=== PATIENT | female | born 1950 | race Caucasian/White ===

== ENCOUNTER 2018-06-16 13:14 | Emergency (ER) | payer MEDICARE, BC, SELFPAY ==
[2018-06-16 13:15] VITALS: BP 154/79; PULSE 81; RESP 16; TEMP 37.6; O2SAT 98; BMI 24.7
[2018-06-16] MEDS: Diphth,Pertuss(Acell),Tet Vac 0.5 ML Vial IM (14:41)
[2018-06-16 14:43] LABS: Absolute Lymphocyte Count 0.62 X10^3/ul (0.83-4.51); Basophil# 0.01 X10^3/uL; Basophil% 0.1 % (0-1); Eosinophil# 0.05 X10^3/uL; Eosinophils% 0.5 % (0-5); Hematocrit 43.5 % (37-47); Hemoglobin 14.1 g/dl (12.0-15.0); Lymphocyte # 0.62 X10^3/ul (4.0); Lymphocyte % 5.8 % (19-41); Mean Corp Hgb Conc 32.4 g/gl (32-36); Mean Corpuscular Hgb 28.7 pg (27.0-32.0); Mean Corpuscular Volume 88.4 fL (81-99); Mean Platelet Vol. 9.8 fl (6.2-12.0); Monocyte# 0.98 X10^3/uL; Monocyte% 9.2 % (0-10); Neutrophil # 8.99 X10^3/uL (2.7-7.7); Neutrophil % 84.3 % (47-70); POSITIVE COUNT NO; POSITIVE DIFFERENTIAL NO; POSITIVE MORPHOLOGY NO; Platelet Count 189 K/mm3 (150-450); RBC Distribution Width CV 13.8 % (11.6-14.6); RBC Distribution Width SD 44.7 fl (35.1-43.9); Red Blood Count 4.92 M/mm3 (4.2-5.4); White Blood Count 10.7 K/mm3 (4.4-11.0)
[2018-06-16] MEDS: Vancomycin IV 1,000 MG/200 ML BAG 200 MG IV (14:52)
[2018-06-16 14:56] LABS: Anion Gap 9 (5-15); BUN 15 mg/dL (7-18); BUN/Creat Ratio 19.9 RATIO (10-20); Calcium,Total 8.9 mg/dL (8.5-10.1); Chloride 106 mmol/L (98-107); Creatinine, Serum 0.75 mg/dL (0.55-1.02); EST Glomerular Filtration Rate 81 mL/min (>60); Est Glom Filt Rate - Afr Amer 98 mL/min (>60); Glucose 95 mg/dL (74-106); Sodium Level 141 mmol/L (136-145)
--- NOTE | 2018-06-16 16:01 | ED.VIS.GEN ---
History of Present Illness Chief Complaint: Lower Extremity Injury Informant: Patient Onset: Days - 2-3 Timing: Continuous Quality: ache, swollen Location: right foot Current Severity: Moderate Maximum Severity: Moderate Worsened by: walking, palpation Relieved by: rest Narrative: Patient states she had open toed shoes on 3 days ago, she was clipping branches from pine trees in her yard so she could mow the grass underneath of them, and she accidentally hit 1 of them with her foot causing a scrape on the dorsal aspect. The next day she noticed that it was red and started to swell. It is much worse today and she was brought to the hospital by family member for evaluation. She denies any fevers or systemic symptoms, just pain and swelling and redness around this area. Last tetanus shot was unknown she thinks it was more than 10 years ago. Past Medical History - Allergies and Home Meds Allergies/Adverse Reactions: Allergies morphine Adverse Reaction (Verified 06/16/18 13:16) Vomiting pregabalin [From Lyrica] Adverse Reaction (Verified 06/16/18 13:16) Vomiting Primary Care Physician: Richard Corley III, MD [Primary Care Provider] - Smoking Status: Never smoker Review of Systems All systems negative except as indicated Musculoskeletal: Reports: Swelling - R foot, Extremity Pain - R foot Skin: Reports: Abscess, Wounds Physical Exam Vital Signs/Narrative: Vital Signs Temp Pulse Resp BP Pulse Ox 06/16/18 13:15 99.6 F H 81 16 154/79 H 98 Inital Vital Signs reviewed: Yes General: Well nourished, Well developed, - - Well-appearing, nad Head: Normocephalic, Atraumatic Eyes: Perrl, EOMI ENT: Moist mucous membranes, No rhinorrhea Neck: Supple, Nontender Extremities: Tenderness - dorsum of R foot; entire dorsum of right foot is erythematous and warm and tender, progressing to the peroneal aspect and not involving any of the sole. Does not involve the ankle or anywhere proximally. This is all surrounding a central wound with ecchymosis around it, pointing, fluctuant, very tender. Skin: - - Right foot cellulitis around a central swollen area that is consistent with an abscess. No spontaneous discharge. Difficult to tell if it is full of pus or clear fluid. There is ecchymotic/purpuric skin just around at the base of this area, but nowhere else. She has symmetric callus formation on the dorsum of both feet just proximal and medial to this abscess-appearing area. It is not tender. No lymphangitis. Neurological: Alert, Oriented x3, Cranial nerves II-XII grossly intact, Normal Strength, Normal Sensation Psychological: Normal affect Diagnostic/Tx/Re-eval Impressions Foot X-Ray 06/16/18 14:41 IMPRESSION: Dorsal soft tissue swelling. No bony abnormality is seen. Electronically Signed: Cesar Lezama MD at 15:00 EDT Tel [phone], Service support , 06/16/18 14:41 Foot min 3 Views [RAD] Stat Laboratory Results 06/16/18 06/16/18 Range/Units 14:36 14:36 WBC 10.7 (4.4-11.0) K/mm3 RBC 4.92 (4.2-5.4) M/mm3 Hgb 14.1 (12.0-15.0) g/dl Hct 43.5 (37-47) % MCV 88.4 (81-99) fL MCH 28.7 (27.0-32.0) pg MCHC 32.4 (32-36) g/gl RDW 13.8 (11.6-14.6) % RDW Differential 44.7 H (35.1-43.9) fl Plt Count 189 (150-450) K/mm3 MPV 9.8 (6.2-12.0) fl Immature Gran % (Auto) 0.100 (0.0-0.9) % Neut % (Auto) 84.3 H (47-70) % Lymph % (Auto) 5.8 L (19-41) % [place] % (Auto) 9.2 (0-10) % Eos % (Auto) 0.5 (0-5) % Baso % (Auto) 0.1 (0-1) % Absolute Neuts (auto) 9.0 H (2.0-7.7) X10^3/uL Absolute Lymphs (auto) 0.62 L (0.83-4.51) X10^3/ul Total Counted Not Reportable Sodium 141 (136-145) mmol/L Potassium 4.0 (3.5-5.1) mmol/L Chloride 106 (98-107) mmol/L Carbon Dioxide 26.0 (21.0-32.0) mmol/L Anion Gap 9 (5-15) BUN 15 (7-18) mg/dL Creatinine 0.75 (0.55-1.02) mg/dL Estim Creat Clear Calc 43.30 ml/min Est GFR (MDRD) Af Amer 98 (>60) mL/min Est GFR (MDRD) Non-Af 81 (>60) mL/min BUN/Creatinine Ratio 19.9 (10-20) RATIO Glucose 95 (74-106) mg/dL Calcium 8.9 (8.5-10.1) mg/dL - Medical Decision Making With the available labs and exam, and reevaluation after the initial one, which shows that the erythema is at the same level/area, there is no evidence of a necrotizing infection here. She has a low-grade systemic temperature, but other than a mild leukocytosis, her labs are unremarkable. She was given a dose of IV vancomycin here, and her tetanus was updated. I think given the etiology, the best medication to put her on would be gentamicin. She was advised that this has a higher tendency to cause antibiotic associated diarrhea and I advised her to eat yogurt every day while she is on the antibiotic. She is comfortable with that plan, I offered admission but she can walk okay and lives with her granddaughter, they are both comfortable with discharge home and wound care, watching for signs of worsening, with which they will return to the ER. Procedures Procedure(s): simple I&D abscess right foot -- prep w/ isopropanol and chlorhexidine, locally anesthetized w/ 4cc plain 1% lidocaine. Incised pointing fluctuant area with a #11 blade, there was bloody purulent discharge but the cavity is only the size of the blister that was grossly visible, nothing subcutaneous. It was cleansed out and dressed with bacitracin. ED Disposition - Plan for ED Patient: Disposition: Home or Assisted Living Chief Complaint: Lower Extremity Injury Diagnosis: Wound infection, posttraumatic, Cutaneous abscess of right foot Instructions: ED Abscess IandD, ED Infec Skin Cellulitis Prescriptions: Clindamycin [Cleocin] 300 mg PO 4X/DAY #80 cap Referrals: Richard Corley III, MD [Primary Care Provider] - 3-5 Days if not improving
[2018-06-16 17:16] VITALS: BP 133/75; BP 134/75; PULSE 74; RESP 18; O2SAT 98
== END 2018-06-16 17:18 | disposition home or self-care (01) ==
PROVIDERS: Emergency Provider Emergency Medicine; Family Provider Family Medicine; PCP Family Medicine
DX: L02.611 Cutaneous abscess of right foot (principal); Z23 Encounter for immunization
CPT/HCPCS: 10060; 73630; 80048; 85025; 90715; 99283; J7050

== ENCOUNTER 2018-10-07 13:26 | Emergency (ER) | payer MEDICARE, BC, SELFPAY ==
[2018-10-07 13:27] VITALS: BP 154/115; PULSE 82; RESP 16; TEMP 36.9; O2SAT 98; BMI 26.1
[2018-10-07 13:36] VITALS: PULSE 83; RESP 16; O2SAT 99
--- NOTE | 2018-10-07 13:58 | EKG12_ITS ---
Test Reason : REPEAT ECG Blood Pressure : / mmHG Vent. Rate : 072 BPM Atrial Rate : 072 BPM P-R Int : 166 ms QRS Dur : 128 ms QT Int : 434 ms P-R-T Axes : 055 004 039 degrees QTc Int : 475 ms Normal sinus rhythm Right bundle branch block Abnormal ECG Confirmed by MARIYA MENSAH ([id number]), video effects editor RODGER UGARTE ([id number]) on 10/10/2018 1:04:57 PM Referred By: YOHANA Confirmed By:MARIYA MENSAH
--- NOTE | 2018-10-07 13:58 | RAD_ITS ---
STUDY: X-RAY CHEST REASON FOR EXAM: Female, 68 years old. Left-sided chest pain. TECHNIQUE: Single AP portable view of the chest. COMPARISON: Comparison is made with prior study dated December 03, 2012. FINDINGS: EKG electrodes are seen. Hyperinflation. The lungs are clear. There is no demonstrated pleural abnormality. Normal size heart. Normal mediastinum and marv. Normal visualized pulmonary arteries. There is atherosclerotic calcification of the aortic arch with tortuosity. There are diffuse degenerative changes of the visualized thoracic spine. Levoscoliosis. Normal visualized ribs, clavicles, and shoulders. There is no demonstrated abnormality of the visualized soft tissue structures of the upper abdomen. RAD/Chest 1 View (Portable) IMPRESSION: Hyperinflation. The lungs are clear. Electronically Signed: Cesar Lezama MD at 14:45 EST Tel [phone], Service support ,
--- NOTE | 2018-10-07 14:00 | ED.VISSUMM ---
- ER Visit Summary Date of Service: 10/07/18 Chief Complaint: Left chest pain History of Present Illness: The patient is a 68 F past medical history of hypertension only. Patient has no cardiac history. She has no history of DVT or PE. She denies any recent travel, surgery, hemoptysis or leg pain or swelling. No recent immobilization. She states around 11 AM today she had sudden onset left-sided chest pain. No radiation to her jaw, neck or arm. Not associated with exertion. She has had no recent exertional chest pain or exertional dyspnea. She is never had anything like this before. She denies any trauma. Has not seen any rash. Physical Examination: Well-appearing older female. Vital signs are stable. Initial blood pressure 154/115. Pulse ox 99% on 2 L no hypoxia. No distress. HEENT exam unremarkable. Neck nontender no lymphadenopathy. No JVD. Lungs clear to auscultation bilaterally. Heart regular rhythm no murmur rate about 80. Chest wall nontender. No ecchymosis or bruising. No rash. No shingles. No crepitance or subcu air. No signs of trauma. Abdomen soft nontender. Normal bowel sounds no peritoneal signs. Pelvic girdle intact. Patient is moving all 4 extremities. Neurovascularly intact. Equal symmetrical radial pulses. 5-5 adoption social worker strength. Dorsi plantar flexion intact. Calves nontender without edema or cords. Neurologically she is awake and alert with no focal motor or sensory deficits. Test Results: Cardiac workup. She has no acute abnormality. Chest x-ray normal cardiac silhouette mediastinum read both by myself and radiologist. CBC normal. White count of 4. Hemoglobin 15. Chemistries normal. Normal creatinine and gap. Initial troponin normal. Repeat troponin normal. EKG sinus rhythm rate 84 with a right bundle branch block. No old EKG available for comparison. A repeat EKG was done which also shows a sinus rhythm with a rate of block. No signs of ischemia. No signs of [place]. Multiple repeat exams the patient is doing well I just evaluated her at 1627. We are awaiting the CTA chest results. If that is negative I am comfortable with her being discharged home. Emergency Department Course and Treatment: Aspirin po Treatment Plan: Patient is doing well on repeat exam at 1638. I am awaiting the CT of her chest results. There is a be checked out to the afternoon physician and disposition made. As well as a CTA is negative I am comfortable with her being discharged home. Disposition: [] Impression: Acute left-sided chest pain This note was generated with [employer] dictation software. It may contain incorrect words, spelling, and punctuation that were not noted in review of the chart prior to signing ED Disposition - Plan for ED Patient: Chief Complaint: Chest Other Referrals: Richard Corley III, MD [Primary Care Provider] -
--- NOTE | 2018-10-07 14:03 | ED.DCSUM_ITS ---
- ER Visit Summary Date of Service: 10/07/18 Chief Complaint: Left chest pain History of Present Illness: The patient is a 68 F past medical history of hypertension only. Patient has no cardiac history. She has no history of DVT or PE. She denies any recent travel, surgery, hemoptysis or leg pain or swel ling. No recent immobilization. She states around 11 AM today she had sudden onset left-sided chest pain. No radiation to her jaw, neck or arm. Not associated with exertion. She has had no recent exertional chest pain or exertional dyspnea. She is never had anything like this before. She denies any trauma. Has not seen any rash. Physical Examination: Well-appearing older female. Vital signs are stable. Initial blood pressure 154/115. Pulse ox 99% on 2 L no hypoxia. No distress. HEENT exam unremarkable. Neck nontender no lymphadenopathy. No JVD. Lungs clear to auscultation bilaterally. Heart regular rhythm no murmur rate about 80. Chest wall nontender. No ecchymosis or bruising. No rash. No shingles. No crepitance or subcu air. No signs of trauma. Abdomen soft nontender. Normal bowel sounds no peritoneal signs. Pelvic girdle intact. Patient is moving all 4 extremities. Neurovascularly intact. Equal symmetrical radial pulses. 5-5 housekeeping supervisor hotel strength. Dorsi plantar flexion intact. Calves nontender without edema or cords. Neurologically she is awake and alert with no focal motor or sensory deficits. Test Results: Cardiac workup. She has no acute abnormality. Chest x-ray normal cardiac silhouette mediastinum read both by myself and radiologist. CBC normal. White count of 4. Hemoglobin 15. Chemistries normal. Normal creatinine and gap. Initial troponin normal. Repeat troponin normal. EKG sinus rhythm rate 84 with a right bundle branch block. No old EKG available for comparison. A repeat EKG was done which also shows a sinus rhythm with a rate of block. No signs of ischemia. No signs of [place]. Multiple repeat exams the patient is doing well I just evaluated her at 1627. We are awaiting the CTA chest results. If that is negative I am comfortable with her being discharged home. Emergency Department Course and Treatment: Aspirin po Treatment Plan: Patient is doing well on repeat exam at 1638. I am awaiting the CT of her chest results. There is a be checked out to the afternoon physician and disposition made. As well as a CTA is negative I am comfortable with her being discharged home. Disposition: [] Impression: Acute left-sided chest pain This note was generated with [employer] dictation software. It may contain incorrect words, spelling, and punctuation that were not noted in review of the chart prior to signing ED Disposition - Plan for ED Patient: Chief Complaint: Chest Other Referrals: Richard Corley III, MD [Primary Care Provider] -
[2018-10-07] MEDS: Aspirin 81 MG TAB.CHEW 324 MG PO (14:16)
[2018-10-07] MEDS: Ondansetron 4 MG/2 ML Vial IV (14:25)
[2018-10-07 14:33] LABS: Absolute Neutrophil Count 2.6 X10^3/uL (2.0-7.7); Basophil# 0.03 X10^3/uL; Basophil% 0.6 % (0-1); Eosinophil# 0.47 X10^3/uL; Eosinophils% 10.1 % (0-5); Hematocrit 45.7 % (37-47); Lymphocyte % 23.6 % (19-41); Mean Corp Hgb Conc 32.8 g/gl (32-36); Mean Corpuscular Hgb 28.6 pg (27.0-32.0); Mean Platelet Vol. 10.5 fl (6.2-12.0); Monocyte# 0.42 X10^3/uL; Neutrophil # 2.64 X10^3/uL (2.7-7.7); Neutrophil % 56.7 % (47-70); Platelet Count 220 K/mm3 (150-450); RBC Distribution Width CV 13.7 % (11.6-14.6); RBC Distribution Width SD 43.6 fl (35.1-43.9); Red Blood Count 5.25 M/mm3 (4.2-5.4); White Blood Count 4.7 K/mm3 (4.4-11.0)
[2018-10-07 14:34] LABS: POSITIVE COUNT NO; POSITIVE DIFFERENTIAL NO; POSITIVE MORPHOLOGY NO
[2018-10-07 14:48] LABS: Anion Gap 8 (5-15); BUN 23 mg/dL (7-18); BUN/Creat Ratio 30.6 RATIO (10-20); Calcium,Total 8.8 mg/dL (8.5-10.1); Chloride 107 mmol/L (98-107); Creatinine, Serum 0.75 mg/dL (0.55-1.02); EST Glomerular Filtration Rate 81 mL/min (>60); Est Glom Filt Rate - Afr Amer 98 mL/min (>60); Glucose 94 mg/dL (74-106); Potassium 3.9 mmol/L (3.5-5.1); Sodium Level 142 mmol/L (136-145)
--- NOTE | 2018-10-07 14:52 | ED.RN ---
ddimer 1.[address] called [address] lab. dr landa aware
--- NOTE | 2018-10-07 15:10 | CT_ITS ---
STUDY: CTA CHEST REASON FOR EXAM: Female, 68 years old. Left-sided chest pain RADIATION DOSAGE (If Supplied By Facility): CTDIvol = ( 12.41 ) mGy, DLP = ( 405.64 ) mGycm TECHNIQUE: The examination was performed with the intravenous administration of 100ML ml of Isovue 300 contrast material. Post-processing of the angiographic images was performed, with multiplanar reformation and 3D reconstruction. Individualized dose optimization techniques were used for this CT. COMPARISON: None. FINDINGS: Normal enhancement of the main pulmonary artery and right and left pulmonary arteries. Normal enhancement of the bilateral peripheral pulmonary arteries. There is no demonstrated pulmonary embolism. Normal thoracic aorta and visualized great vessels. There is no demonstrated aortic dissection. Cardiomegaly is present. There is no pericardial effusion. Normal mediastinum. Normal hilar regions. Normal visualized trachea and bronchi. The lungs are well expanded. There is minimal scarring in the lung apices. Normal pleura. Normal chest wall structures. There are degenerative changes of thoracic spine. Normal visualized upper abdomen. CT/CTA Chest W/WO Contrast IMPRESSION: Normal CTA chest examination, without a demonstrated pulmonary embolism or arterial dissection. Cardiomegaly. Minimal scarring of the lung apices. Degenerative changes of the thoracic spine. Electronically Signed: Amos Alvarez MD at 16:47 EST , Service support ,
--- NOTE | 2018-10-07 15:15 | EKG12_ITS ---
Test Reason : LEFT SIDE PAIN Blood Pressure : / mmHG Vent. Rate : 084 BPM Atrial Rate : 084 BPM P-R Int : 166 ms QRS Dur : 136 ms QT Int : 424 ms P-R-T Axes : 068 -26 030 degrees QTc Int : 501 ms Normal sinus rhythm Right bundle branch block Abnormal ECG Confirmed by MARIYA MENSAH ([id number]), fashion editor RODGER UGARTE ([id number]) on 10/10/2018 1:05:17 PM Referred By: NEVAEH Confirmed By:MARIYA MENSAH
[2018-10-07 16:27] VITALS: BP 153/77; PULSE 87; RESP 16; O2SAT 98
--- NOTE | 2018-10-07 16:40 | ED.DEP ---
ED Disposition - Plan for ED Patient: Disposition: Home or Assisted Living Chief Complaint: Chest Other Instructions: ED Chest Pain Atypical Unkn Cause Referrals: Richard Corley III, MD [Primary Care Provider] - 3-5 Days if not improving Additional Instructions: Follow-up with your doctor next week. Return to the ER feeling worse.
[2018-10-07 17:24] VITALS: BP 135/79; PULSE 81; RESP 16; O2SAT 94
[2018-10-07] MEDS: Acetaminophen 500 MG Tablet 1000 MG PO (17:25)
== END 2018-10-07 17:36 | disposition home or self-care (01) ==
PROVIDERS: Emergency Provider Emergency Medicine; Family Provider Family Medicine; PCP Family Medicine
DX: R07.9 Chest pain, unspecified (principal); I45.10 Unspecified right bundle-branch block; I10 Essential (primary) hypertension
CPT/HCPCS: 71045; 71275; 80048; 84484; 85025; 85379; 93005; 96361; 96374; 99285; J7030; J7040; Q9967; A4216; J2405

== ENCOUNTER 2019-11-05 19:46 | Observation (INO) | payer MEDICARE, BC, SELFPAY ==
[2019-11-05 19:49] VITALS: BP 166/93; PULSE 98; RESP 18; TEMP 36.3; O2SAT 93; BMI 26.5
--- NOTE | 2019-11-05 20:19 | CT_ITS ---
STUDY: CT ABDOMEN AND PELVIS WITH CONTRAST REASON FOR EXAM: Female, 69 years old. RT SIDED ABDOMEN PAIN,ELEVATED WBC,NAUSEA AND Vomiting, pt WAS SEEN AT ANOTHER HOSPITAL THIS AM AND DX WITH CONSTIPATION AND KIDNEY STONES RADIATION DOSAGE (If Supplied By Facility): CTDIvol = ( 14.92 ) mGy, DLP = ( 605.94 ) mGycm TECHNIQUE: Transaxial images were obtained from the dome of the diaphragm to the symphysis pubis without oral contrast. IV 100mL Isovue-300 was administered. Sagittal and coronal images were reconstructed. Individualized dose optimization techniques were used for this CT. COMPARISON: None. FINDINGS: There is minimal bibasilar atelectasis and/or scarring. The visualized portions of the heart are within normal limits. Normal liver. The gallbladder is surgically absent. Normal spleen. Normal pancreas. Normal bilateral adrenal glands. There are nonobstructing right renal calculi measuring up to 5.4 mm. There are too small to characterize low-attenuation foci within the kidneys. There is a left renal cyst. Normal visualized stomach. Normal small intestine. There is circumferential wall thickening of the ascending and transverse colon which are incompletely distended. There is a moderate amount of stool throughout the colon and rectum. The appendix is visualized and appears normal. There is diffuse atherosclerotic calcification of the abdominal aorta, without a demonstrated aneurysm. Normal inferior vena cava. Normal retroperitoneum. Normal urinary bladder. Normal abdominal wall. There are diffuse degenerative changes of the visualized thoracic and lumbar spine. There is a dextroscoliosis of the lumbar spine. CT/Abdomen/Pelvis W IV Cont ONLY IMPRESSION: Circumferential wall thickening of the ascending and transverse colon which may be secondary their incompletely distended state however cannot exclude underlying colitis. Moderate amount of stool throughout the colon and rectum. Nonobstructing right renal calculi measuring up to 5.4 mm. Atherosclerosis. Degenerative changes of the thoracic and lumbar spine. Electronically Signed: Nuvia Lang MD at 22:05 EST Tel , Service support ,
[2019-11-05] MEDS: fentaNYL 100 MCG/2 ML Ampul 50 MCG IV (20:35)
[2019-11-05] MEDS: Ondansetron 4 MG/2 ML Vial IV (20:35)
[2019-11-05] MEDS: 0.9% Normal Saline 1,000 ML 125 ML IV (20:36)
[2019-11-05 20:57] LABS: ALB/GLOB Ratio 1.1 RATIO (0.9-2.4); AST(SGOT) 25 U/L (15-37); Alanine Aminotransfer ALT/SGPT 28 U/L (13-56); Albumin, Serum 3.8 g/dL (3.2-5.0); Alkaline Phosphatase 84 U/L (45-117); Anion Gap 6 (5-15); BUN 13 mg/dL (7-18); BUN/Creat Ratio 15.6 RATIO (10-20); Calcium,Total 8.6 mg/dL (8.5-10.1); Chloride 108 mmol/L (98-107); Creatinine, Serum 0.83 mg/dL (0.55-1.02); EST Glomerular Filtration Rate 72 mL/min (>60); Est Glom Filt Rate - Afr Amer 87 mL/min (>60); Estimated Creatinine Clearance 49.17 ml/min; Globulin 3.4 g/dL (2.2-4.2); Glucose 154 mg/dL (74-106); Potassium 3.8 mmol/L (3.5-5.1); Protein, Total 7.2 g/dL (6.4-8.2); Sodium Level 140 mmol/L (136-145)
[2019-11-05 21:08] LABS: Basophil# 0.02 X10^3/uL; Basophil% 0.2 % (0-1); Hematocrit 45.8 % (37-47); Hemoglobin 14.5 g/dL (12.0-15.0); Lymphocyte % 5.8 % (19-41); Mean Corp Hgb Conc 31.7 g/dL (32-36); Mean Corpuscular Hgb 27.9 pg (27.0-32.0); Mean Corpuscular Volume 88.2 fL (81-99); Mean Platelet Vol. 10.1 fl (6.2-12.0); Monocyte# 0.32 X10^3/uL; Monocyte% 2.7 % (0-10); NRBC Flagged by Analyzer 0 % (0-5); Neutrophil # 10.96 X10^3/uL (2.7-7.7); Neutrophil % 90.9 % (47-70); Platelet Count 234 K/mm3 (150-450); RBC Distribution Width CV 13.1 % (11.6-14.6); RBC Distribution Width SD 42.5 fl (35.1-43.9); Red Blood Count 5.19 M/mm3 (4.2-5.4); White Blood Count 12.1 K/mm3 (4.4-11.0)
[2019-11-05 21:21] LABS: Bacteria 0 SEEN /hpf (None Seen); Mucous, Urine 0 SEEN /hpf (<or=2+)
[2019-11-05 21:25] LABS: Lactic Acid 2.1 mmol/L (0.4-1.9)
[2019-11-05 21:26] LABS: Color, Urine Yellow (Yellow); Glucose, Dipstick 100 mg/dl (Normal); Ketone-Dipstick 15 mg/dl (Negative); Leukocyte Esterase-Dipstick Negative /ul (Negative); Nitrite-Dipstick Negative (Negative); Occult Blood-Urine Negative /ul (Negative); Protein-Dipstick 15 mg/dl (Negative); Urine Bilirubin Dipstick Negative (Negative); Urine Clarity Clear (Clear); Urine Urobilinogen Normal (Normal)
[2019-11-05 21:32] LABS: Red Blood Cells-Urine 0-5 SEEN /hpf (0-5); White Blood Cells 0-5 SEEN /hpf (0-5)
[2019-11-05 21:33] LABS: Squamous Epithelial Cells - UA 0-5 SEEN /hpf (5-10)
[2019-11-05 22:17] LABS: Lipase 73 U/L (73-393)
[2019-11-05 22:18] VITALS: BP 134/77; PULSE 85; RESP 18; O2SAT 93
[2019-11-05] MEDS: Acetaminophen 500 MG Tablet 1000 MG PO (22:27)
[2019-11-05] MEDS: Metoclopramide 10 MG/2 ML Vial IV (22:27)
--- NOTE | 2019-11-05 22:34 | HP.PCM_ITS ---
Problem List (1) Intractable abdominal pain Status: Acute (2) Elevated lactic acid level Status: Acute (3) Constipation Status: Acute Qualifiers: Constipation type: unspecified constipation type Qualified Code(s): K59.00 - Constipation, unspecified (4) HTN (hypertension) Status: Chronic Qualifiers: Hypertension type: essential hypertension Qualified Code(s): I10 - Essential (primary) hypertension (5) HLD (hyperlipidemia) Status: Chronic Qualifiers: Hyperlipidemia type: unspecified Qualified Code(s): E78.5 - Hyperlipidemia, unspecified History of Present Illness Date of Admission: 11/05/19 Chief Complaint: Intractable abdominal pain The patient is a 69 y/o F w/ PMHx: HTN, HLD, Constipation, Fibromyalgia w/ Chron ic pain who presents to the [facility] ED on 11/05/19 with history of ongoing intractable, 10/10, severe, sharp but also dull aching/cramping sensation abdominal pain with associated nausea 2-3 days, recently evaluated earlier in the day at [facility] [place] with CT scan at that time without contrast with evidence constipation with discharge to home on narcotic therapies which she notes she has significant emesis issues with with ongoing intractable nausea and emesis following attempted narcotic intake with no improvement in abdominal pain prompting alternate ED return. Work-up in the ED included T 97.4, heart rate 98, BP 166/93, respiratory rate 18, 93% on room air, CBC with WC 12.1, hemoglobin 14.5, platelet 234 with left shift, CMP with chloride 108, glucose 154, lactic acid 2.1, total bili 1.20 with normal AST, ALT, lipase 73, analysis with specific gravity 1.010, protein 15, glucose 100, ketones 15 otherwise normal-appearing, CT abdomen pelvis with IV contrast with circumferential wall thickening of the ascending and transverse colon possibly secondary to incompletely distended state however cannot exclude underlying colitis with a moderate amount of stool throughout the colon and rectal region with a nonobstructing right renal calculi measuring up to 5.4 mm, atherosclerosis, degenerative changes of the thoracic and lumbar spine. In the ED patient ministered Zofran, Reglan 10 mg IV x1, fentanyl 50 mcg IV x1 as well as Tylenol normal saline. Past Medical History Past Medical History (Chronic Problems): Chronic Problems HTN (hypertension) (Chronic) HLD (hyperlipidemia) (Chronic) Allergies nitrofurantoin [From Macrobid] Allergy (Verified 11/05/19 20:01) Hives acetaminophen [From Vicodin] Adverse Reaction (Verified 11/05/19 20:01) Vomiting hydrocodone [From Vicodin] Adverse Reaction (Verified 11/05/19 20:01) Vomiting morphine Adverse Reaction (Verified 11/05/19 20:01) Vomiting pregabalin [From Lyrica] Adverse Reaction (Verified 11/05/19 20:01) Vomiting Home Medications: Ambulatory Orders Medication Instructions Recorded Lisinopril [Zestril] 20 mg PO DAILY 04/09/17 Omeprazole [Prilosec] 20 mg PO DAILY 04/09/17 Polyethylene Glycol 3350 [Miralax] 17 gm PO DAILY 04/09/17 Naproxen 1 tab PO BID PRN PRN 06/16/18 Tizanidine HCl 4 mg PO Q8H PRN PRN 10/07/18 Hydrocodone/Acetaminophen 1 tab PO Q6H PRN PRN 11/05/19 [Hydrocodone-Acetamin 5-325 mg] Ondansetron HCl 1 tab PO Q6H PRN PRN 11/05/19 Surgical History: - - Cholecystectomy, tonsillectomy, umbilical hernia repair. Psychiatric History: No pertinent psych hx [employer] History: No pertinent [employer] history Lives: With Family - Patient notes that currently her granddaughter lives with her. Smoking Status: Never smoker Tobacco Use: Non-smoker Alcohol: None Drugs: None - *Family History Maternal History Items: - - She denies any market maternal or paternal family history including heart disease, diabetes or cancer. Paternal History Items: - - She denies any market maternal or paternal family history including heart disease, diabetes or cancer. Review of Systems Constitutional: Reports: Anorexia, Malaise, Weakness, Fatigue. Denies: Chills, Fever, Weight Change HEENT: Denies: Head Aches, Sinus Congestion, Sinus Drainage Cardiovascular: Denies: Chest Pain, Palpitations Respiratory: Denies: Cough, Shortness of breath at rest, Sputum production Gastrointestinal: Reports: Abdominal Pain, Constipation, Nausea, Vomiting Genitourinary: Denies: Dysuria Musculoskeletal: Reports: Joint Pain. Denies: Joint Tenderness Skin: Denies: Rash, Wounds Neurological: Denies: Numbness, Tingling, Focal weakness Psychiatric: Denies: Anxiety, Depression, Homicidal Ideations, Suicidal Ideations Hematologic/ Lymphatic: Denies: Easy Bruising, Easy Bleeding VTE Information - Inpt Only VTE Present on Admission: No VTE Mechan Device Prophylaxis: SCD's VTE Pharm Prophylaxis ordered?: Yes Patient Problems: Active and Suspected Problems Intractable abdominal pain (Acute) Constipation (Acute) Elevated lactic acid level (Acute) Subjective: Seated upright in the ED bed, fatigued appearance, holding emesis bag, notes ongoing abdominal discomfort and cramping. Objective: Physical Examination: General: awake, alert, oriented x 3 and cooperative, seated upright in the ED bed, uncomfortable, ongoing abdominal discomfort, nausea with a hoarse voice she notes secondary to ongoing intractable emesis recently. Skin: normal color, turgor, no icterus, cyanosis. HEENT: AT/NC, EOMI, PERRLA, dry MM, no carotid bruits or JVD noted. Lungs: Diminished breath sounds bilaterally, decreased effort, no rales, ronchi or wheezing. Heart: Regular rate and rhythm; no gallop, rub audible. Abdomen: soft, despite complaint of abdominal pain, no market tenderness with diffuse palpation, difficult to assess distention but does not feel distended, hypoactive distant bowel sounds, no HSM. Extremities: no cyanosis, clubbing, or edema. Neurological: patient awake, alert, oriented x 3; cognitive function intact; pupils equally reactive to light and accomodation; cranial nerves II-XII grossly normal, moving all 4 extremities, no focal deficits, strength moderately to severely globally [place] secondary to acute complaints. Psychiatric: affect appears fatigued, no acute evidence of depressive or anxiety feelings. - Physical Exam Vitals/I&O's: Vital Signs Temp Pulse Resp BP Pulse Ox 97.4 F L 85 18 134/77 H 93 11/05/19 19:49 11/05/19 22:18 11/05/19 22:18 11/05/19 22:18 11/05/19 22:18 Oxygen Delivery Method Room Air Weight: 145 lb Body Mass Index (BMI) 26.5 Laboratory Results 11/05/19 20:00: WBC 12.1 H, RBC 5.19, Hgb 14.5, Hct 45.8, MCV 88.2, MCH 27.9, MCHC 31.7 L, RDW Std Deviation 42.5, RDW Coeff of Brady 13.1, Plt Count 234, MPV 10.1, Immature Gran % (Auto) 0.400, Neut % (Auto) 90.9 H, Lymph % (Auto) 5.8 L, [place] % (Auto) 2.7, Eos % (Auto) 0.0, Baso % (Auto) 0.2, Absolute Neuts (auto) 11.0 H, Absolute Lymphs (auto) 0.70 L, Nucleated RBC % 0 11/05/19 20:00: Sodium 140, Potassium 3.8, Chloride 108 H, Carbon Dioxide 26.0, Anion Gap 6, BUN 13, Creatinine 0.83, Estim Creat Clear Calc 49.17, Est GFR (MDRD) Af Amer 87, Est GFR (MDRD) Non-Af 72, BUN/Creatinine Ratio 15.6, Glucose 154 H, Calcium 8.6, Total Bilirubin 1.20 H, AST 25, ALT 28, Alkaline Phosphatase 84, Total Protein 7.2, Albumin 3.8, Globulin 3.4, Albumin/Globulin Ratio 1.1 11/05/19 20:00: Lipase 73 11/05/19 20:35: Lactic Acid 2.1 H* 11/05/19 21:10: Urine Color Yellow, Urine Clarity Clear, Urine pH 7.0, Ur Specific [place] 1.010, Urine Protein 15 H, Urine Glucose (UA) 100 H, Urine Ketones 15 H, Urine Occult Blood Negative, Urine Nitrite Negative, Urine Bilirubin Negative, Urine Urobilinogen Normal, Ur Leukocyte Esterase Negative, Urine RBC 0-5 SEEN, Urine WBC 0-5 SEEN, Ur Squamous Epith Cells 0-5 SEEN, Urine Bacteria 0 SEEN, Urine Mucus 0 SEEN Current Medications Sodium Chloride () 1,000 mls @ 125 mls/hr IV .Q8H [facility] Last Admin: 11/05/19 20:36 Dose: 125 mls/hr Documented by: Assessment/Plan All Active Problems Intractable abdominal pain (Acute) Constipation (Acute) Elevated lactic acid level (Acute) The patient is a 69 y/o F w/ PMHx: HTN, HLD, Constipation, Fibromyalgia w/ Chronic pain who presents to the [facility] ED on 11/05/19 with history of ongoing intractable, 10/10, severe, sharp but also dull aching abdominal pain with associated nausea and vomiting, intractable ongoing x2 to 3 days. 1. N/V, Intractable Abdominal Pain secondary to ? Colitis versus Acute on Chronic Constipation: Will admit to MS, continue aggressive hydration, repeat AM CBC. Will not start antibiotics at this time given more suspicious for severe constipation, will initiate golytely regimen until bowel movement onset, NPO except sip water w/ medications, continue PRN antiemetic regimens, pain regimen as needed although cautiously as notable emesis side effect related per report. 2. Lactic acidosis: LA elevated 2.1, suspected secondary to dehydration with acute presentation as noted #1, continue to hydrate and trend LA as needed per facility protocol. 3. Hyperglycemia: Admission glucose 154, possibly stress response, hemoglobin A1c pending. 4. Hypertension: Continue home regimen including lisinopril, PRN hydralazine. 5. Hyperlipidemia: Not on regimen, defer to outpatient evaluation. 6. GERD: We will maintain patient on IV famotidine with bowel rest as noted. 7. DVT prophylaxis: SCDs, Lovenox. Code Visit OBSV E&M: 86296 Initial observation care L3
[2019-11-05 23:03] VITALS: BP 146/84; PULSE 94; RESP 18; O2SAT 95
--- NOTE | 2019-11-05 23:07 | ED.DCSUM_ITS ---
- ER Visit Summary Date of Service: 11/05/19 Chief Complaint: Abdominal pain History of Present Illness: The patient is a [address] Richard Corley. She reports that she has right upper quadrant and right flank pain that began yesterday. Is gradually gotten worse. Is a sharp pain is transient severity. Is worsened by movement. Is unchanged with food. She reports that nothing makes this better. She reports she has been nauseated and vomited 12-20 times. No blood in her emesis. Last bowel move was November 01. No blood in her stools or black tarry stools. No dysuria or frequency. No fever or chills. No chest pain. Physical Examination: Vitals: Stable. Afebrile. General: Well-nourished and well-developed. Head: Normocephalic atraumatic. Neck: Supple, no lymphadenopathy. No JVD. Nontender. Cardiovascular: Regular rate and rhythm. No murmurs. Respiratory: No respiratory distress. Clear to auscultation bilaterally. Abdominal: Soft, moderate right upper quadrant tenderness to palpation, nondistended, normal bowel sounds. No guarding, rebound, or peritoneal signs. Back: Nontender. Extremities: Nontender, no edema. Skin: Normal color, no rash. Neurologic: Alert and oriented ?3. Cranial nerves II through XII are intact. Normal strength and sensation. Psych: Normal affect. Test Results: CBC shows white count 12.1 with segmented neutrophils of 91 lymphocytes of 6. Chem-7 shows a chloride of 108 and glucose 154. LFTs show total bili 1.2. Lipase is normal. UA is negative. Lactic acid is 2.1. Clinical Impression(s) from Imaging Studies Abdomen/Pelvis CT 11/05/19 20:19 IMPRESSION: Circumferential wall thickening of the ascending and transverse colon which may be secondary their incompletely distended state however cannot exclude underlying colitis. Moderate amount of stool throughout the colon and rectum. Nonobstructing right renal calculi measuring up to 5.4 mm. Atherosclerosis. Degenerative changes of the thoracic and lumbar spine. Electronically Signed: Nuvia Lang MD at 22:05 EST Tel , Service support , Emergency Department Course and Treatment: Patient was given a dose of fentanyl and Zofran IV. She continues to complain of nausea and pain. She was given Reglan IV and Tylenol p.o. Treatment Plan: Patient was discussed with Dr. Garrison. She will be admitted to the hospital for further evaluation and treatment. Disposition: Admitted in stable condition. Impression: 1. Abdominal pain, uncertain cause. 2. Vomiting. This note was generated with [employer] dictation software. It may contain incorrect words, spelling, and punctuation that were not noted in review of the chart prior to signing
[2019-11-05 23:34] VITALS: BMI 25.5
[2019-11-05 23:39] VITALS: BP 145/81; PULSE 95; RESP 18; TEMP 36.6; O2SAT 94
[2019-11-06] MEDS: 0.9% Normal Saline 1,000 ML 125 ML IV ×2 (00:02→08:15)
[2019-11-06] MEDS: proMETHazine 25 MG/ML Syringe 6.25 MG IV (00:02)
[2019-11-06 00:09] VITALS: BMI 25.5
[2019-11-06 00:25] LABS: Hemoglobin A1c 5.7 % (4.2-6.3)
[2019-11-06] MEDS: Dicyclomine 10 MG Capsule 20 MG PO ×2 (00:38→10:15)
[2019-11-06 00:39] LABS: Reflex Lactate? Y
[2019-11-06] MEDS: Electrolyte Solution/Peg's 4000 ML 2000 ML PO (00:45)
[2019-11-06 04:03] LABS: Lactic Acid 1.2 mmol/L (0.4-1.9)
[2019-11-06 05:40] VITALS: BP 137/71; PULSE 82; RESP 18; TEMP 36.4; O2SAT 97
[2019-11-06 06:49] LABS: Absolute Lymphocyte Count 1.05 X10^3/uL (0.83-4.51); Absolute Neutrophil Count 9.5 X10^3/uL (2.0-7.7); Basophil# 0.02 X10^3/uL; Basophil% 0.2 % (0-1); Hematocrit 43.6 % (37-47); Hemoglobin 13.8 g/dL (12.0-15.0); Lymphocyte # 1.05 X10^3/ul (4.0); Lymphocyte % 9.1 % (19-41); Mean Corp Hgb Conc 31.7 g/dL (32-36); Mean Corpuscular Hgb 28.2 pg (27.0-32.0); Mean Platelet Vol. 9.8 fl (6.2-12.0); Monocyte# 0.93 X10^3/uL; Monocyte% 8.1 % (0-10); NRBC Flagged by Analyzer 0 % (0-5); Neutrophil # 9.49 X10^3/uL (2.7-7.7); Neutrophil % 82.3 % (47-70); Platelet Count 230 K/mm3 (150-450); RBC Distribution Width CV 12.9 % (11.6-14.6); RBC Distribution Width SD 42.2 fl (35.1-43.9); White Blood Count 11.5 K/mm3 (4.4-11.0)
[2019-11-06 07:09] LABS: Anion Gap 6 (5-15); BUN 10 mg/dL (7-18); BUN/Creat Ratio 14.2 RATIO (10-20); Calcium,Total 8.6 mg/dL (8.5-10.1); Chloride 109 mmol/L (98-107); EST Glomerular Filtration Rate 87 mL/min (>60); Est Glom Filt Rate - Afr Amer 105 mL/min (>60); Estimated Creatinine Clearance 40.81 ml/min; Glucose 104 mg/dL (74-106); Potassium 3.7 mmol/L (3.5-5.1); Sodium Level 139 mmol/L (136-145)
[2019-11-06] MEDS: Ondansetron 4 MG/2 ML Vial IV (08:15)
[2019-11-06] MEDS: 0.9% Saline Lock 10 ML Syringe IV (08:15)
[2019-11-06 10:04] VITALS: BP 121/70; PULSE 69; RESP 18; TEMP 36.6; O2SAT 98
--- NOTE | 2019-11-06 10:14 | DCINST_ITS ---
- Discharge Diagnoses Current Active Problems: Current Active and Chronic Problems Intractable abdominal pain (Acute) Constipation (Acute) HTN (hypertension) (Chronic) HLD (hyperlipidemia) (Chronic) Elevated lactic acid level (Acute) You will use the following diet at home:: Regular Your food should be the consistency of: Regular Discharge Activity: Return to Normal Activity Weight Bearing Status: Weight bearing as tolerated Call your doctor if you observe: Fever of 101 or Higher, Shortness of breath, Dizziness, Fainting spells, Chest pain, Increased palpitations (irregular heartbeat), Uncontrolled pain Instructions: Treating Constipation Allergies/Adverse Reactions: Allergies nitrofurantoin [From Macrobid] Allergy (Verified 11/05/19 20:01) Hives acetaminophen [From Vicodin] Adverse Reaction (Verified 11/05/19 20:) Vomiting hydrocodone [From Vicodin] Adverse Reaction (Verified 11/05/19 20:) Vomiting morphine Adverse Reaction (Verified 11/05/19 20:01) Vomiting pregabalin [From Lyrica] Adverse Reaction (Verified 11/05/19 20:01) Vomiting Medications to take at Discharge Lisinopril [Zestril] 20 mg PO DAILY 04/09/17 Omeprazole [Prilosec] 20 mg PO DAILY 04/09/17 Naproxen 1 tab PO BID PRN PRN 06/16/18 Tizanidine HCl 4 mg PO Q8H PRN PRN 10/07/18 Hydrocodone/Acetaminophen [Hydrocodone-Acetamin 5-325 mg] 1 tab PO Q6H PRN PRN 11/05/19 Ondansetron HCl 1 tab PO Q6H PRN PRN 11/05/19 Magnesium Hydroxide [Milk Of Magnesia] 30 ml PO DAILY PRN PRN #30 udc 11/06/19 Senna/Docusate Sodium [Senokot-S, Linda-Colace] 1 tab PO BID #60 tab 11/06/19 The following prescriptions were given: Magnesium Hydroxide [Milk Of Magnesia] 30 ml PO DAILY PRN PRN #30 udc PRN Reason: Constipation Transmission Status: Pending to [id number] Senna/Docusate Sodium [Senokot-S, Linda-Colace] 1 tab PO BID #60 tab Transmission Status: Pending to [id number] Primary Care Physician: Richard Corley III, MD [Primary Care Provider] - Please follow up with your Primary Care Physician in: 1-2 WEEKS. Test Results: Test results from this visit will be discussed in further detail at your follow- up appointment, if applicable.
[2019-11-06] MEDS: Enoxaparin 40 MG/0.4 ML Syringe SC (10:15)
[2019-11-06] MEDS: Lisinopril 20 MG Tablet PO (10:15)
[2019-11-06] MEDS: Famotidine 200 MG/20 ML MDV 20 MG in 0.9% Normal Saline (Pres. free 8 ML 300 MG IV (10:15)
[2019-11-06 13:43] VITALS: O2SAT 98
--- NOTE | 2019-11-06 14:43 | DS.PCM_ITS ---
Discharge Date and Diagnosis Date of Admission: 11/05/19 Date of Discharge: 11/06/19 - Primary Discharge Diagnosis #1 acute severe constipation. #2 abdominal pain attributed to constipation. - Secondary Discharge Diagnosis Chronic Problems HTN (hypertension) (Chronic) HLD (hyperlipidemia) (Chronic) Hospital Course and Treatment Imaging Results: Clinical Impression(s) from Imaging Studies Abdomen/Pelvis CT 11/05/19 20:19 IMPRESSION: Circumferential wall thickening of the ascending and transverse colon which may be secondary their incompletely distended state however cannot exclude underlying colitis. Moderate amount of stool throughout the colon and rectum. Nonobstructing right renal calculi measuring up to 5.4 mm. Atherosclerosis. Degenerative changes of the thoracic and lumbar spine. Electronically Signed: Nuvia Lang MD at 22:05 EST Tel , Service support , Operations: None Procedures: None Summary of Care Provided: Patient seen and examined on the day of discharge and appeared to be stable to be discharged home. She received GoLYTELY and she had bowel movements with large amount of stool. After she had a bowel movement, she had no more abdominal pain. She was started on diet and she did very well. Her vital signs were stable. The patient is a 69 year old F patient presented to the emergency room because of intractable abdominal pain. Her routine blood work was remarkable for minimal leukocytosis, otherwise normal. LFT and lipase were normal. Lactic acid was elevated at 2.1 which is attributed to severe pain and illness. There was no evidence of sepsis or severe sepsis. Lactic acid went back to normal with IV fluids. Urinalysis showed no evidence of infection. CT scan abdomen and pelvis with IV contrast revealed circumferential wall thickening of the ascending and transverse colon and moderate amount of stool throughout the colon and rectum. This circumferential wall thickening of the colon attributed to severe constipation and colon distention. There was no evidence of significant colitis. Abdominal exam was benign. Her symptoms attributed to severe constipation which is probably caused by Inchelium that patient has been taking for chronic pain issues. Although patient has been taking MiraLAX but has not been having a bowel movement for days. Patient received GoLYTELY and she had large bowel movements. After she passed stool, her pain is resolved and gone. She started on diet and she did very well. Patient discharged home in a stable medical condition, started on milk of magnesia as needed daily in addition to Senokot S1 tablet twice a day scheduled while on narcotics, continued on her previous home medications without any changes, recommended follow-up with PCP in 1 to 2 weeks. - Physical Exam Vitals/I&O's: Vital Signs Temp Pulse Resp BP Pulse Ox 97.9 F 69 18 121/70 H 98 11/06/19 10:04 11/06/19 10:04 11/06/19 10:04 11/06/19 10:04 11/06/19 13:43 Oxygen Delivery Method Room Air Weight: 139 lb 8.842 oz Body Mass Index (BMI) 25.5 Intake and Output for Last 24 Hours 11/04/19 11/05/19 11/06/19 23:59 23:59 23:59 Intake Total / Balance / General: Alert, Oriented x3, Cooperative, No apparent distress HEENT: Atraumatic, PERRLA, EOMI, Normocephalic Oral: Moist Mucosa, No Gingival or Mucosal Lesions/ Ulcerations Neck: Supple, No JVD, Negative Carotid Bruits, Trachea Midline, Thyroid Normal Size and Texture Lungs: Clear to auscultation, Normal air movement, No rhonchi, No wheeze, No rales, Diminished Cardiovascular: Regular rate, Regular Rhythm, Normal S1, Normal S2, PMI Normal Abdomen: Bowel Sounds Present, Soft, Non Tender, Non-Distended, No Hepato- splenomegaly Extremities: No clubbing, No cyanosis, No edema Skin: No rashes, No breakdown Lymphatic: No Cervical, Supraclavicular, or Inguinal Adenopathy Neurological: Cranial nerves II-XII grossly intact, Neuro grossly intact Psych/Mental Status: Normal Affect, Appropriate Laboratory Results 11/05/19 20:00: WBC 12.1 H, RBC 5.19, Hgb 14.5, Hct 45.8, MCV 88.2, MCH 27.9, MCHC 31.7 L, RDW Std Deviation 42.5, RDW Coeff of Brady 13.1, Plt Count 234, MPV 10.1, Immature Gran % (Auto) 0.400, Neut % (Auto) 90.9 H, Lymph % (Auto) 5.8 L, [place] % (Auto) 2.7, Eos % (Auto) 0.0, Baso % (Auto) 0.2, Absolute Neuts (auto) 11.0 H, Absolute Lymphs (auto) 0.70 L, Nucleated RBC % 0 11/05/19 20:00: Sodium 140, Potassium 3.8, Chloride 108 H, Carbon Dioxide 26.0, Anion Gap 6, BUN 13, Creatinine 0.83, Estim Creat Clear Calc 49.17, Est GFR (MDRD) Af Amer 87, Est GFR (MDRD) Non-Af 72, BUN/Creatinine Ratio 15.6, Glucose 154 H, Calcium 8.6, Total Bilirubin 1.20 H, AST 25, ALT 28, Alkaline Phosphatase 84, Total Protein 7.2, Albumin 3.8, Globulin 3.4, Albumin/Globulin Ratio 1.1 11/05/19 20:00: Lipase 73 11/05/19 20:00: Magnesium 2.0 11/05/19 20:00: Hemoglobin A1c 5.7 11/05/19 20:35: Lactic Acid 2.1 H* 11/05/19 21:10: Urine Color Yellow, Urine Clarity Clear, Urine pH 7.0, Ur Specific [place] 1.010, Urine Protein 15 H, Urine Glucose (UA) 100 H, Urine Ketones 15 H, Urine Occult Blood Negative, Urine Nitrite Negative, Urine Bilirubin Negative, Urine Urobilinogen Normal, Ur Leukocyte Esterase Negative, Urine RBC 0-5 SEEN, Urine WBC 0-5 SEEN, Ur Squamous Epith Cells 0-5 SEEN, Urine Bacteria 0 SEEN, Urine Mucus 0 SEEN 11/06/19 00:37: Lactic Acid 1.2 11/06/19 06:24: WBC 11.5 H, RBC 4.90, Hgb 13.8, Hct 43.6, MCV 89.0, MCH 28.2, MCHC 31.7 L, RDW Std Deviation 42.2, RDW Coeff of [place] 12.9, Plt Count 230, MPV 9.8, Immature Gran % (Auto) 0.300, Neut % (Auto) 82.3 H, Lymph % (Auto) 9.1 L, [place] % (Auto) 8.1, Eos % (Auto) 0.0, Baso % (Auto) 0.2, Absolute Neuts (auto) 9.5 H, Absolute Lymphs (auto) 1.05, Nucleated RBC % 0 11/06/19 06:24: Sodium 139, Potassium 3.7, Chloride 109 H, Carbon Dioxide 24.0, Anion Gap 6, BUN 10, Creatinine 0.70, Estim Creat Clear Calc 40.81, Est GFR (MDRD) Af Amer 105, Est GFR (MDRD) Non-Af 87, BUN/Creatinine Ratio 14.2, Glucose 104, Calcium 8.6 Discharge Activity: Return to Normal Activity Weight Bearing Status: Weight bearing as tolerated Call your doctor if you observe: Fever of 101 or Higher, Shortness of breath, Dizziness, Fainting spells, Chest pain, Increased palpitations (irregular heartbeat), Uncontrolled pain Home Medications: Medications to take at Discharge Lisinopril [Zestril] 20 mg PO DAILY 04/09/17 Omeprazole [Prilosec] 20 mg PO DAILY 04/09/17 Naproxen 1 tab PO BID PRN PRN 06/16/18 Tizanidine HCl 4 mg PO Q8H PRN PRN 10/07/18 Hydrocodone/Acetaminophen [Hydrocodone-Acetamin 5-325 mg] 1 tab PO Q6H PRN PRN 11/05/19 Ondansetron HCl 1 tab PO Q6H PRN PRN 11/05/19 Magnesium Hydroxide [Milk Of Magnesia] 30 ml PO DAILY PRN PRN #30 udc 11/06/19 Senna/Docusate Sodium [Senokot-S, Linda-Colace] 1 tab PO BID #60 tab 11/06/19 Following Prescrptions Were Given to Patient: Magnesium Hydroxide [Milk Of Magnesia] 30 ml PO DAILY PRN PRN #30 udc PRN Reason: Constipation Transmission Status: Received by [facility]/pharmacy #[id number] Senna/Docusate Sodium [Senokot-S, Linda-Colace] 1 tab PO BID #60 tab Transmission Status: Received by [facility]/pharmacy #[id number] Primary Care Physician: Richard Corley III, MD [Primary Care Provider] - Please follow up with your Primary Care Physician in: 1-2 WEEKS. Patient Instructions: Treating Constipation Disposition: Home Minutes spent on discharge:: 27 Patient Condition:: Stable Medical Necessity - Tobacco Use Smoking Status: Never smoker Tobacco Use: Non-smoker Meaningful Use Info Meaningful Use Diagnoses (Choose all that apply): None applicable Code Visit OBSV E&M: 45321 Observation care discharge
== END 2019-11-06 13:55 | disposition home or self-care (01) ==
LOC: ED 20:59 → MS3 23:04
PROVIDERS: Admitting Provider Family Medicine; Emergency Provider Emergency Medicine; PCP Family Medicine; Visit Provider Hospitalist
DX: K59.00 Constipation, unspecified (principal); I10 Essential (primary) hypertension; E78.5 Hyperlipidemia, unspecified; M79.7 Fibromyalgia; G89.29 Other chronic pain; E87.2 Acidosis; R73.9 Hyperglycemia, unspecified; K21.9 Gastro-esophageal reflux disease without esophagitis; Z79.899 Other long term (current) drug therapy; M41.9 Scoliosis, unspecified
CPT/HCPCS: 36415; 74177; 80048; 80053; 81001; 83036; 83605; 83690; 83735; 85025; 96361; 96372; 96374; 96375; 96376; 97161; 97166; 99218; 99251; 99285; J7030; Q9967; A4216; G0378; G0463; J2405; J3490

== ENCOUNTER 2020-09-23 19:25 | Emergency (ER) | payer MEDICARE, BC, SELFPAY ==
[2020-09-10 09:23] VITALS: BMI 26.1
[2020-09-23 19:26] VITALS: BP 151/98; PULSE 88; RESP 16; TEMP 36.4; O2SAT 97; BMI 26.4
[2020-09-23 21:25] VITALS: BP 151/81; PULSE 71; RESP 18; O2SAT 98
[2020-09-23 21:58] LABS: Absolute Lymphocyte Count 1.36 X10^3/uL (0.83-4.51); Absolute Neutrophil Count 3.3 X10^3/uL (2.0-7.7); Anion Gap 7 (5-15); BUN 14 mg/dL (7-18); BUN/Creat Ratio 12.8 RATIO (10-20); Basophil# 0.03 X10^3/uL; Basophil% 0.5 % (0-1); Chloride 108 mmol/L (98-107); Creatinine, Serum 1.09 mg/dL (0.55-1.02); EST Glomerular Filtration Rate 52 mL/min (>60); Eosinophil# 0.12 X10^3/uL; Eosinophils% 2.1 % (0-5); Est Glom Filt Rate - Afr Amer 63 mL/min (>60); Glucose 91 mg/dL (74-106); Hematocrit 43.9 % (37-47); Hemoglobin 14.4 g/dL (12.0-15.0); Lymphocyte # 1.36 X10^3/ul (4.0); Lymphocyte % 24.2 % (19-41); Mean Corp Hgb Conc 32.8 g/dL (32-36); Mean Corpuscular Hgb 28.9 pg (27.0-32.0); Mean Corpuscular Volume 88.2 fL (81-99); Mean Platelet Vol. 10.2 fl (6.2-12.0); Monocyte# 0.74 X10^3/uL; Monocyte% 13.2 % (0-10); NRBC Flagged by Analyzer 0 % (0-5); Neutrophil # 3.34 X10^3/uL (2.7-7.7); Neutrophil % 59.6 % (47-70); Platelet Count 212 K/mm3 (150-450); RBC Distribution Width CV 13.2 % (11.6-14.6); RBC Distribution Width SD 42.5 fl (35.1-43.9); Red Blood Count 4.98 M/mm3 (4.2-5.4); Sodium Level 140 mmol/L (136-145); White Blood Count 5.6 K/mm3 (4.4-11.0)
--- NOTE | 2020-09-23 22:20 | CT_ITS ---
STUDY: CT ABDOMEN AND PELVIS WITH CONTRAST REASON FOR EXAM: Female, 70 years old. ABDOMEN PAIN AND VOMITING,BACK PAIN X 3 DAYS,HAS BURNING SENSATION DOWN BOTH ARMS -- HX:HTN,HLD,GERD,IBS,KIDNEY STONES,SCOLIOSIS -- SURGERY:HERNIA REPAIR,CHOLECYSTECTOMY RADIATION DOSAGE (If Supplied By Facility): CTDIvol = ( 12.94 ) mGy, DLP = ( 542.30 ) mGycm TECHNIQUE: Transaxial images were obtained from the dome of the diaphragm to the symphysis pubis without oral contrast. IV 100mL Isovue-300 was administered. Sagittal and coronal images were reconstructed. Individualized dose optimization techniques were used for this CT. COMPARISON: November 05, 2019 FINDINGS: There is lower lung atelectasis. The visualized portions of the heart are within normal limits. Normal liver. The gallbladder is not seen consistent with cholecystectomy. Normal spleen. Normal pancreas. Normal bilateral adrenal glands. There are 0.5 and 0.2 cm stones of the right kidney. There are hypodensities compatible with cysts measuring up to 1.0 cm on the left. Mild atrophy of the left kidney. There is no hydronephrosis. Normal visualized stomach. Normal small intestine. Normal colon. There is non-visualization of the appendix. There is diffuse atherosclerotic calcification of the abdominal aorta, without a demonstrated aneurysm. Normal inferior vena cava. Normal retroperitoneum. Normal urinary bladder. Normal visualized uterus. There is no free fluid in the abdomen or pelvis. Normal abdominal wall. There is dextroscoliosis with degenerative change of the spine. CT/Abdomen/Pelvis W IV Cont ONLY IMPRESSION: Right renal stones. No hydronephrosis. Electronically Signed: Moses Wilcox MD at 23:21 EST , Service support ,
--- NOTE | 2020-09-23 22:21 | EKG12_ITS ---
Test Reason : UPPER EXT Blood Pressure : / mmHG Vent. Rate : 076 BPM Atrial Rate : 076 BPM P-R Int : 196 ms QRS Dur : 138 ms QT Int : 420 ms P-R-T Axes : 054 011 020 degrees QTc Int : 472 ms Normal sinus rhythm Right bundle branch block Abnormal ECG Confirmed by RAMOS HIGGINS, NAT ([id number]), editor managing director BRIAN THOMPSON ([id number]) on 09/25/2020 1:06:04 PM Referred By: TREE Confirmed By:NAT BEASLEY MD
--- NOTE | 2020-09-23 22:45 | RAD_ITS ---
STUDY: X-RAY CHEST REASON FOR EXAM: Female, 70 years old. BURNING SENSATION THAT GOES DOWN BOTH ARMS AND HER BACK. TECHNIQUE: Single AP portable view of the chest. COMPARISON: October 07, 2018 FINDINGS: The lungs are clear and expanded. There is no demonstrated pleural abnormality. Normal size heart. Normal mediastinum and marv. Normal visualized pulmonary arteries. Normal visualized aortic arch and descending thoracic aorta. There is demineralization of the osseous structures. There are diffuse degenerative changes of the visualized thoracic spine. Normal visualized ribs, clavicles, and shoulders. There is no demonstrated abnormality of the visualized soft tissue structures of the upper abdomen. RAD/Chest 1 View (Portable) IMPRESSION: Degenerative changes, as described above. No demonstrated acute cardiopulmonary process. Electronically Signed: Moses Wilcox MD at 23:30 EST , Service support ,
--- NOTE | 2020-09-23 22:50 | ED.DCSUM_ITS ---
History of Present Illness Chief Complaint: Upper Extremity Injury Informant: Patient Narrative: 70-year-old female with past medical history of hypertension, hyperlipidemia, fibromyalgia presents with concern for back and abdominal pain. States is been present over the past 3 days. States that she began with a pain in her lower back which is now migrated to her abdomen. States it is in her upper epigastrium. Describes it as aching and intermittent. Denies any nausea, vomiting, chest pain, shortness of breath, urinary symptoms. Denies any fever, chills, cough. No relieving or worsening factors. Past Medical History - Allergies and Home Meds Allergies/Adverse Reactions: Allergies nitrofurantoin [From Macrobid] Allergy (Verified 09/23/20 19:28) Hives acetaminophen [From Vicodin] Adverse Reaction (Verified 09/23/20 19:28) Vomiting hydrocodone [From Vicodin] Adverse Reaction (Verified 09/23/20 19:28) Vomiting morphine Adverse Reaction (Verified 09/23/20 19:28) Vomiting pregabalin [From Lyrica] Adverse Reaction (Verified 09/23/20 19:28) Vomiting Primary Care Physician: Richard Corley III, MD [Primary Care Provider] - Prior records reviewed: Yes Past Medical History: - - HTN, HLD, fibromyalgia Surgical History: - - Cholecystectomy, tonsillectomy, umbilical hernia repair. Smoking Status: Never smoker - Family History Maternal Family History: Family History (Last Updated 09/10/20 @ 09:25 by Sharon Cody) Mother Dementia Family History: Reports: - - She denies any market maternal or paternal family history including heart disease, diabetes or cancer. Paternal Family History: Family History (Last Updated 09/10/20 @ 09:25 by Sharon Cody) Mother Dementia Family History: Reports: - - She denies any market maternal or paternal family history including heart disease, diabetes or cancer. Review of Systems General: Denies: Chills, Fever, Sweats Eyes: Denies: Visual changes - bilaterally, Diplopia ENT: Denies: Rhinorrhea, Sore throat Cardiovascular: Denies: Chest pain, Palpitations Respiratory: Denies: Dyspnea, Cough, Dyspnea on exertion Gastrointestinal: Reports: Abdominal pain. Denies: Nausea, Vomiting, Diarrhea, Melena, Hematochezia Genitourinary: Denies: Dysuria, Hematuria, Frequency Musculoskeletal: Reports: Back pain. Denies: Extremity Pain Skin: Denies: Rash, Wounds Neurological: Denies: Headache, Weakness, Numbness Physical Exam Vital Signs/Narrative: Vital Signs Temp Pulse Resp BP Pulse Ox 09/23/20 21:25 71 18 151/81 H 98 09/23/20 19:26 97.5 F L 88 16 151/98 H 97 Inital Vital Signs reviewed: Yes General: Well nourished, Well developed, No Acute Distress Head: Normocephalic, Atraumatic Eyes: Perrl, EOMI ENT: Moist mucous membranes, No rhinorrhea Neck: Supple, Nontender Cardiovascular: Regular rate, Regular rhythm, No murmurs Respiratory: No distress, CTA bilaterally, Chest nontender Abdomen: Soft, Nondistended, Normal bowel sounds, - - TTP in the upper epigastrum and RUQ. Back: Nontender, Normal Inspection Extremities: Nontender, No edema Skin: Normal color, No rash Neurological: Alert, Oriented x3, Cranial nerves II-XII grossly intact, Normal Strength, Normal Sensation Psychological: Normal affect, Normal Mood Diagnostic/Tx/Re-eval Chest X-Ray - ED: 1 View, Read by ED Physician, Read by Radiologist Clinical Impression(s) from Imaging Studies Abdomen/Pelvis CT 09/23/20 22:20 IMPRESSION: Right renal stones. No hydronephrosis. Electronically Signed: Moses Wilcox MD at 23:21 EST , Service support , Chest X-Ray 09/23/20 22:45 IMPRESSION: Degenerative changes, as described above. No demonstrated acute cardiopulmonary process. Electronically Signed: Moses Wilcox MD at 23:30 EST , Service support , Laboratory Data 09/23/20 09/23/20 09/23/20 20:59 20:59 20:59 WBC 5.6 RBC 4.98 Hgb 14.4 Hct 43.9 MCV 88.2 MCH 28.9 MCHC 32.8 RDW Std Deviation 42.5 RDW Coeff of Brady 13.2 Plt Count 212 MPV 10.2 Immature Gran % (Auto) 0.400 Neut % (Auto) 59.6 Lymph % (Auto) 24.2 Titus % (Auto) 13.2 H Eos % (Auto) 2.1 Baso % (Auto) 0.5 Absolute Neuts (auto) 3.3 Absolute Lymphs (auto) 1.36 Nucleated RBC % 0 Sodium 140 Potassium 4.0 Chloride 108 H Carbon Dioxide 25.0 Anion Gap 7 BUN 14 Creatinine 1.09 H Estim Creat Clear Calc 35.20 Est GFR (MDRD) Af Amer 63 Est GFR (MDRD) Non-Af 52 L BUN/Creatinine Ratio 12.8 Glucose 91 Calcium 9.0 Troponin I < 0.015 Lipase 55 L Urine Color Urine Clarity Urine pH Ur Specific [place] Urine Protein Urine Glucose (UA) Urine Ketones Urine Occult Blood Urine Nitrite Urine Bilirubin Urine Urobilinogen Ur Leukocyte Esterase Urine RBC Urine WBC Ur Squamous Epith Cells Urine Bacteria Urine Mucus 09/23/20 23:04 WBC RBC Hgb Hct MCV MCH MCHC RDW Std Deviation RDW Coeff of Brady Plt Count MPV Immature Gran % (Auto) Neut % (Auto) Lymph % (Auto) Titus % (Auto) Eos % (Auto) Baso % (Auto) Absolute Neuts (auto) Absolute Lymphs (auto) Nucleated RBC % Sodium Potassium Chloride Carbon Dioxide Anion Gap BUN Creatinine Estim Creat Clear Calc Est GFR (MDRD) Af Amer Est GFR (MDRD) Non-Af BUN/Creatinine Ratio Glucose Calcium Troponin I Lipase Urine Color Yellow Urine Clarity Clear Urine pH 6.0 Ur Specific [place] 1.015 Urine Protein 15 H Urine Glucose (UA) Normal Urine Ketones 15 H Urine Occult Blood 150 H Urine Nitrite Negative Urine Bilirubin Negative Urine Urobilinogen Normal Ur Leukocyte Esterase 500 H Urine RBC 0-5 SEEN Urine WBC 5-10 SEEN Ur Squamous Epith Cells 0-5 SEEN Urine Bacteria 0 SEEN Urine Mucus 0 SEEN - Rhythm Strip Rhythm Strip: Sinus Rhythm Rate: 76 Ectopy: None - EKG Initial EKG Interpretation: Sinus Rhythm - Sinus rhythm at 76 bpm. NJ interval 196 ms. QTC of 472 ms. Right bundle branch block. No evidence of acute ischemia. - Medical Decision Making Appears well nontoxic. Vague and nonspecific symptoms. Lab work within normal limits. Urine shows leukocytes without bacteria. Patient has no urinary symptoms and urine will be sent for culture. Troponin negative. EKG nonischemic. CT of the abdomen pelvis with IV contrast is negative for acute process. Chest x-ray which was reviewed by myself as well as radiologist shows no acute process. Patient will be given Tylenol for pain which could be se condary to her fibromyalgia. Patient will follow up with Dr. Corley tomorrow. Asked to return for new or worsening symptoms. Patient agreeable and discharged home in stable condition. Impression: 1. Back pain 2. Abdominal pain ED Disposition - Plan for ED Patient: Disposition: Home or Assisted Living Instructions: Relieving Tension in Your Back, Abdominal Pain Referrals: Richard Corley III, MD [Primary Care Provider] - As soon as possible
[2020-09-23 23:00] VITALS: BP 153/78; PULSE 77; RESP 18; O2SAT 98
[2020-09-23 23:01] LABS: Lipase 55 U/L (73-393)
[2020-09-23 23:09] LABS: Bacteria 0 SEEN /hpf (None Seen); Mucous, Urine 0 SEEN /hpf (<or=2+)
[2020-09-23 23:12] LABS: Color, Urine Yellow (Yellow); Glucose, Dipstick Normal (Normal); Ketone-Dipstick 15 mg/dl (Negative); Leukocyte Esterase-Dipstick 500 /ul (Negative); Nitrite-Dipstick Negative (Negative); Occult Blood-Urine 150 /ul (Negative); Protein-Dipstick 15 mg/dl (Negative); Specific Gravity, Urine 1.015 (1.002-1.030); Urine Bilirubin Dipstick Negative (Negative); Urine Clarity Clear (Clear); Urine Urobilinogen Normal (Normal)
[2020-09-23 23:17] LABS: Red Blood Cells-Urine 0-5 SEEN /hpf (0-5); Squamous Epithelial Cells - UA 0-5 SEEN /hpf (5-10); White Blood Cells 5-10 SEEN /hpf (0-5)
[2020-09-23] MEDS: Acetaminophen 500 MG Tablet 1000 MG PO (23:52)
[2020-09-23 23:56] VITALS: BP 152/85; PULSE 71; RESP 18; O2SAT 98
== END 2020-09-24 00:27 | disposition home or self-care (01) ==
PROVIDERS: Emergency Provider Emergency Medicine; PCP Family Medicine
DX: M54.9 Dorsalgia, unspecified (principal); R10.9 Unspecified abdominal pain; E78.5 Hyperlipidemia, unspecified; I10 Essential (primary) hypertension; I45.10 Unspecified right bundle-branch block; K21.9 Gastro-esophageal reflux disease without esophagitis; K58.9 Irritable bowel syndrome, unspecified; N20.0 Calculus of kidney; Z87.442 Personal history of urinary calculi; Z88.1 Allergy status to other antibiotic agents; Z88.5 Allergy status to narcotic agent; M41.9 Scoliosis, unspecified
CPT/HCPCS: 71045; 74177; 80048; 81001; 83690; 84484; 85025; 93005; 99284; Q9967; A4216

== ENCOUNTER → 2020-09-24 10:07 | Outpatient (CLI) | payer MEDICARE, BC, SELFPAY ==
[2020-09-10 09:23] VITALS: BMI 26.1
[2020-09-23 19:26] VITALS: BMI 26.4
--- NOTE | 2020-09-24 10:09 | MRI_ITS ---
STUDY: MRI BRAIN WITHOUT CONTRAST REASON FOR EXAM: Female, 70 years old. Parkinson''s, new right hand tremor TECHNIQUE: Standardized multiplanar fat and water weighted pulse sequences were obtained. COMPARISON: None. FINDINGS: Normal size of the ventricles and extra-axial spaces for the patient''s age. Normal white matter tracts of the supratentorial brain. There is no evidence for recent intracranial ischemia or other cause of cytotoxic edema on diffusion weighted imaging (DWI). Normal T2* images of the brain without demonstrated susceptibility artifact. There is no demonstrated hemosiderin stain. Normal bilateral basal ganglia. Normal thalami. There is no extra-axial fluid accumulation. Normal flow voids within the major intracranial circulation suggesting patency by spin echo criteria. Normal sella turcica, pituitary gland, infundibular stalk, optic chiasm and hypothalamus. Normal tectal plate and pineal gland. Normal midbrain, sangita and medulla. Normal cerebellum. Normal basal cisterns. Normal bilateral temporal bones. Normal bilateral internal auditory canals. No demonstrated orbital abnormality, within the constraints of a routine brain study. Normal visualized paranasal sinuses. Normal calvarium and skull base. Normal visualized soft tissue structures. Normal visualized upper cervical spine. MRI/Brain without Contrast IMPRESSION: Normal unenhanced MRI of the brain. Electronically Signed: Hai Lunsford MD at 11:23 EST Tel , Service support ,
== END ==
PROVIDERS: PCP Family Medicine; Referring Provider Psychiatry & Neurology Neurology; Visit Provider Psychiatry & Neurology Neurology
DX: G20 Parkinson's disease (principal)
CPT/HCPCS: 70551

== ENCOUNTER → 2020-10-10 14:06 | Outpatient (CLI) | payer MEDICARE, BC, SELFPAY ==
[2020-09-23 19:26] VITALS: BMI 26.4
[2020-10-10 14:44] LABS: Hematocrit 46.6 % (37-47); Hemoglobin 14.9 g/dL (12.0-15.0); Mean Corpuscular Hgb 29.1 pg (27.0-32.0); Platelet Count 249 K/mm3 (150-450); RBC Distribution Width CV 13.4 % (11.6-14.6); RBC Distribution Width SD 45.1 fl (35.1-43.9); Red Blood Count 5.12 M/mm3 (4.2-5.4); White Blood Count 4.7 K/mm3 (4.4-11.0)
[2020-10-10 15:31] LABS: ALB/GLOB Ratio 1.3 RATIO (0.9-2.4); AST(SGOT) 12 U/L (15-37); Alanine Aminotransfer ALT/SGPT 17 U/L (13-56); Albumin, Serum 4.1 g/dL (3.2-5.0); Alkaline Phosphatase 97 U/L (45-117); Anion Gap 5 (5-15); BUN 15 mg/dL (7-18); BUN/Creat Ratio 13.8 RATIO (10-20); Calcium,Total 8.9 mg/dL (8.5-10.1); Chloride 107 mmol/L (98-107); Creatinine, Serum 1.09 mg/dL (0.55-1.02); EST Glomerular Filtration Rate 52 mL/min (>60); Est Glom Filt Rate - Afr Amer 63 mL/min (>60); Globulin 3.2 g/dL (2.2-4.2); Glucose 109 mg/dL (74-106); Protein, Total 7.3 g/dL (6.4-8.2); Sodium Level 140 mmol/L (136-145); Thyroid Stim Hormone (TSH) 0.92 uIU/mL (0.358-3.74)
== END ==
PROVIDERS: PCP Family Medicine; Referring Provider Psychiatry & Neurology Neurology; Visit Provider Psychiatry & Neurology Neurology
DX: G20 Parkinson's disease (principal); I10 Essential (primary) hypertension
CPT/HCPCS: 36415; 80053; 84443; 85027

== ENCOUNTER 2021-01-16 11:50 | Day surgery (SDC) | payer MEDICARE, BC, SELFPAY ==
[2020-10-15 16:22] VITALS: BMI 26.1
--- NOTE | 2021-01-06 13:36 | HP.PCM_ITS ---
- Problem List (1) PMB (postmenopausal bleeding) Status: Acute History and Physical Date of Admission: 01/16/21 DATE OF SERVICE: January 06, 2021 ? PROBLEM:?PMB and pelvic pain ? DIAGNOSIS:?PMB and pelvic pain ? PAST SURGICAL HISTORY:? PAST SURGICAL HISTORYExpand by Default PAST SURGICAL HISTORY Procedure Laterality Date ? COLONOSCOPY W/BX ? 11/18/2012 ? COLONOSCOPY W/BX ? 05/11/2017 ? Normal colonoscopy, normal terminal ileum-unremarkable biopsies ? EGD ? 10/09/2020 ? EGD W/O BRSH SPECIMEN W/BX ? 05/11/2017 ? Mild reflux otherwise normal-unremarkable biopsies ? EGD W/O OR W/BRUSH/WASH ? 07/05/2018 ? EGD ? LAPAROSCOPIC CHOLEYCYSTECTOMY ? 12/01/2012 ? with ventral hernia repair ? PAST MEDICAL HISTORY:? PAST MEDICAL HISTORYExpand by Default PAST MEDICAL HISTORY Diagnosis Date ? Chronic back pain ? ? ?pinched nerves in back ? Chronic left SI joint pain 03/23/2017 ? Essential hypertension, benign 07/06/2012 ? Fibromyalgia ? ? Hyperlipidemia ? ? Irritable bowel syndrome with both constipation and diarrhea 04/19/2017 ? Irritable bowel syndrome with constipation 09/10/2017 ? Lumbar radiculopathy 04/12/2017 ? Renal calculus, right 04/19/2017 ? Scoliosis of thoracolumbar spine 03/23/2017 ? Situational depression 09/10/2017 ? Thoracic radiculopathy due to degenerative joint disease of spine 12/01/2013 ? SOCIAL HISTORY:? SOCIAL HISTORYExpand by Default Social History ? Tobacco Use ? Smoking status: Never Smoker ? Smokeless tobacco: Never Used Vaping Use ? Vaping Use: Never used Substance Use Topics ? Alcohol use: No ? Drug use: No ? ALLERGIESExpand by Default ALLERGIES Allergen Reactions ? Lyrica [Pregabalin] ? ? ? dizzy,sick to stomach ? Macrobid [Nitrofura* Hives ? Morphine ? Vomiting Current Outpatient Medications on File Prior to Visit Medication Sig ? baclofen (LIORESAL) 10 mg tablet TAKE 1 TABLET BY MOUTH TWICE A DAY ? amantadine HCl (SYMMETREL) 100 mg capsule Take 100 mg by mouth twice daily. ? ALPRAZolam (XANAX) 0.5 mg tablet 1 TABLET BY MOUTH TAKE 30 MINUTES PRIOR TO MRI ? gabapentin (NEURONTIN) 100 mg capsule THREE TIMES A DAY ? acetaminophen (TYLENOL EXTRA STRENGTH) 500 mg tablet Take 500 mg by mouth every 8 hours as needed. ? lisinopril (ZESTRIL, PRINIVIL) 20 mg tablet Take 1 tablet by mouth once daily. ? omeprazole (PRILOSEC) 20 mg capsule Take 2 capsules by mouth daily before breakfast. 1/2 hr before meal. ? polyethylene glycol 3350 (MIRALAX, GLYCOLAX) 17 gram/dose powder PLACE (ONE SCOOP) IN 8 OZ OF WATER DAILY UNTIL STOOLS ARE REGULAR UP TO TWO(2) WEEKS ?w gabapentin (NEURONTIN) 300 mg capsule Take 1 capsule by mouth daily at bedtime for 30 days. No current facility-administered medications on file prior to visit. ? OBJECTIVE: ? VITALS:? BP 100/60 ? Pulse 82 ? Resp 14 ? Ht 5' 3 (1.6 m) ? Wt 129 lb 3.2 oz (58.6 kg) ? BMI 22.89 kg/m? ? HEENT: ?Normocephalic, atraumatic, Mucus membranes moist without lesions. ? NECK: ???Soft and Supple. ?No adenopathy , thyromegaly or bruits. ? SKIN: No lesions. ? CHEST: Clear to auscultation. ?No wheezes or rales. ?Good air exchange. ? HEART: Regular rate and rhythm ?No S3 or S4. ?No gallops or rubs. ? BACK: Nontender with no CVA tenderness. ? ABDOMEN: Soft, non-tender, non-distended, no masses, no hepatosplenomegaly. ? LOWER EXTREMITIES: There was no pitting edema, no palpable cords and no skin changes.? ? Pap ASCUS on 12/23/2020 with negative HPV ? Pelvic US 12/30/2020 Postmenopausal bleeding Impression Mrs. MERINO was referred for a pelvic ultrasound. Multiplanar images of the pelvic ?organs were obtained. Transabdominal images were obtain, suboptimal views due to bowel gas. The uterus is Visualized measures 56 mmx 21 mmx 33 mm and appears normal The endometrial echo appears Thickened at 12.5mm. The right ovary is Visualizedand appears normal The left ovary is Not visualized The [place] is Visualizedand there is no free fluid visualized Recommendations consider endometrial sampling due to thickened endometrium and PMB. follow up as clinically indicated ? ASSESSMENT:?PMB and pelvic pain ? PLAN:?Reviewed pap smear and pelvic US results. Recommend repeat pap smear and HPV test in 3 years. Discussed thickening of endometrium in the setting of postmenopausal bleeding. Recommended and discussed hysteroscopy D&C in detail.?The rationale for the proposed surgery was discussed in addition to risks, benefits, and alternatives. ?General pre- and post-operative care was reviewed. ?Questions were answered. ?After discussion, the patient indicated a desire to proceed with the planned surgery. ? Sofía Duenas,?DO
[2021-01-15 09:46] LABS: Hemoglobin 14.7 g/dL (12.0-15.0); Mean Corpuscular Hgb 28.8 pg (27.0-32.0); Mean Platelet Vol. 10.2 fl (6.2-12.0); Platelet Count 228 K/mm3 (150-450); RBC Distribution Width CV 13.3 % (11.6-14.6); RBC Distribution Width SD 44.4 fl (35.1-43.9); Red Blood Count 5.11 M/mm3 (4.2-5.4); White Blood Count 4.3 K/mm3 (4.4-11.0)
[2021-01-15 10:04] LABS: Anion Gap 6 (5-15); BUN 16 mg/dL (7-18); BUN/Creat Ratio 15.2 RATIO (10-20); Calcium,Total 8.9 mg/dL (8.5-10.1); Chloride 108 mmol/L (98-107); Creatinine, Serum 1.05 mg/dL (0.55-1.02); EST Glomerular Filtration Rate 55 mL/min (>60); Est Glom Filt Rate - Afr Amer 66 mL/min (>60); Glucose 101 mg/dL (74-106); Potassium 4.1 mmol/L (3.5-5.1); Sodium Level 142 mmol/L (136-145)
[2021-01-16] VITALS (7 sets, daily range): BP systolic 130–157; BP diastolic 82–93; PULSE 67–90; RESP 14–16; TEMP 36.5–37.1; O2SAT 96–100; BMI 22.5
--- NOTE | 2021-01-16 | IMM_PTH ---
PATIENT: MLE MERINO LOC: [facility] – [place] U#:[id number] AGE/SX: 70/F ROOM: RE01/16/[address]: Dr. Sofía Duenas DO : 1950 BED: DIS: 01/16/2021 SPEC #: [id number] RECD: 01/20/21 11:38 STATUS: VARGAS REQ #: [id number] LUKE: 01/16/21 00:[address]: Sofía Duenas DEPT: IMMUNOHISTOCHEMISTRY RECD BY: Olya Pierre ENTERED: 01/20/21 11:40 SP TYPE: IMMUNO OTHR DR: Dr. Richard Corley III, MD Tissues: A - Urethra, NOS Procedures: RCC (add) SMA (add) NAPSIN A (add) CD31 (add) CD34 (add) CD45 (add) CK20 (add) CK5-6 (add) CK7 (add) CK8 (add) DESMIN (add) HEP PAR (add) MART1 (add) NM (add) TTF1 (add) Vimentin (add) FACTOR VIII (add) Pankeratin (add) P40 (add) ER (initial) S-100 (add) PHYSICIAN & INSTITUTION [place] [id number] SPECIMEN INFORMATION: Tissue Source: A - Urethral caruncle Clinical Info: Postmenopausal bleeding Specimen Number: [id number] CPT code: 13117, 41954 x20 METHODOLOGY: Deparaffinized sections of prefer/formalin-fixed tissue or PAP/DQ stained slides are incubated with monoclonal/polyclonal antibodies/oligonucleotide probes. Localization is made via biotin free immunoperoxidase method. Appropriate controls are performed and reacted as expected. Results on target cell population are indicated in the following table: RESULTS: ANTIBODY / CLONE RESULT Block A ER (6F11) negative NM (1E2) negative AE1-3 (AE1/AE3/PCK26) negative CK7 (OV-TL12/30) negative CK8 (47ompaQ27) negative CK20 (KS20.8) negative CD45 (RP2/18) negative Vimentin (V9) positive TTF-1 (8G7G3/1) negative Napsin A (Rabbit Polyclonal) negative HepPar (OCh1E5) negative RCC (PN-15) negative CK5-6 (D5 & 1684) negative P40 (BC28) negative CD31 (MAGDY/70A) negative CD34 (QBEnd-10) negative Factor VIII (R Ag) negative Actin (1A4) negative Desmin (CE-R-11) negative MART-1 (A-103) negative S-100 (4C4.9) negative These tests were developed and their performance characteristics determined by [facility]. They may not have been cleared or approved by the U.S. Food and Drug Administration. The FDA has determined that such clearance or approval is not necessary. The above immunohistochemical/dualISH markers are ordered and reviewed by the Pathologist. INTERPRETATION: A. Urethral caruncle, biopsy: Consistent with urethral caruncle with focal epithelial atypia and markedly atypical stromal cells suspicious for malignancy. See comment. SJ:carissa 01/23/2021 Comment: IHC is non-contributory for definite diagnosis of the lesion. Clinical correlation and appropriate follow up are necessary. Case has been reviewed in consultation with Dr. Delgado who concurs with the above diagnosis. IDC:AM
--- NOTE | 2021-01-16 | URE_PTH ---
PATIENT: MEL MERINO LOC: [facility] – [place] U#:[id number] AGE/SX: 70/F ROOM: RE01/16/[address]: Dr. Sofía Duenas DO : 1950 BED: DIS: 01/16/2021 SPEC #: [id number] RECD: 01/16/21 14:37 STATUS: VARGAS REXander #: [id number] LUKE: 01/16/21 00:[address]: Sofía Duenas DEPT: SURGICAL PATHOLOGY RECD BY: Darian Padilla ENTERED: 01/17/21 07:55 SP TYPE: URETER BX OTHR DR: Dr. Richard Corley III, MD Tissues: A - Ureteral orifice, NOS B - Endometrium, NOS Procedures: Surgery Specimen Level IV HEADER OPERATION: Hysteroscopy, D & C, biopsy of urethral caruncle PRE-OP DIAGNOSIS: Postmenopausal bleeding TISSUE SUBMITTED: A - Urethral caruncle, B - Endometrial curettings MICROSCOPIC DIAGNOSIS A. Urethral caruncle, biopsy: Consistent with urethral caruncle with focal epithelial atypia and markedly atypical stromal cells suspicious for malignancy. See comment. B. Endometrial curettings: Rare degenerated cells noted mixed with neutrophils and macrophages. Fragments of benign ecto- and endocervical epithelium and mucous. See comment. SJ:rg 01/23/2021 COMMENT A. Immunohistochemistry ([id number]) is non-contributory for definite diagnosis of the lesion. Incisional or excisional biopsy of the lesion is recommended for definite diagnosis of the lesion. . B. Endometrial tissue is not identified. Repeat endometrial curettings is suggested if clinically indicated. Clinical correlation and appropriate follow up are necessary. This case is discussed with Dr. Sofía Duenas on 01/22/21. Case has been reviewed in consultation with Dr. Delgado who concurs with the above diagnosis. IDC:AM MICROSCOPIC DESCRIPTION Slides are reviewed. GROSS DESCRIPTION A - Received in fixative is one container labeled with the patient's name and designated urethral caruncle. The specimen consists of two irregular fragments of congested soft tissue that in aggregate measure 0.3 x 0.2 x 0.1 cm. The specimen is totally submitted in one cassette. B - Received in fixative is one container labeled with the patient's name and designated endometrial curettings. The specimen consists of multiple irregular fragments of coleman mucoid tissue that in aggregate measure 3 x 2.5 x 0.3 cm. The specimen is totally submitted in one cassette. / SJ:rg 01/17/21 TC:5 CPT: 29196 x2
[2021-01-16] MEDS: Lactated Ringers 1,000 ML 100 ML IV (12:33)
--- NOTE | 2021-01-16 14:09 | DCINST_ITS ---
Discharge Diet: No Restrictions Discharge Activity: May Not Drive - for 24 hours after surgery May resume sexual activity in: 1-2 weeks - no intercourse, tampons, hot tubs, tub baths, pools for 1 week while having the vaginal bleeding Weight Bearing Status: Weight bearing as tolerated Lifting Restrictions: No restrictions Call your doctor if you observe: Fever of 101 or Higher, Inability to urinate, Inability to have a bowel movement, Using more than one pad per hour, Shortness of breath, Dizziness, Fainting spells, Swelling in the ankles, Chest pain, Increased palpitations (irregular heartbeat), Calf discomfort, Uncontrolled pain Additional Instructions: You will have cramping and light bleeding for several days. Allergies/Adverse Reactions: Allergies nitrofurantoin [From Macrobid] Allergy (Verified 01/10/21 11:31) Hives hydrocodone [From Vicodin] Adverse Reaction (Verified 01/10/21 11:31) Vomiting morphine Adverse Reaction (Verified 01/10/21 11:31) Vomiting pregabalin [From Lyrica] Adverse Reaction (Verified 01/10/21 11:31) Vomiting Medications to take at Discharge Lisinopril [Zestril] 20 mg PO QHS 04/09/17 omeprazole 20 mg capsule,delayed release 20 mg PO BID cap 09/09/20 Baclofen 10 mg PO BID 09/23/20 Polyethylene Glycol 3350 17 gm PO DAILY PRN 09/23/20 amantadine HCl 100 mg capsule 100 mg PO BID #180 cap 10/15/20 gabapentin 100 mg capsule 300 mg PO QHS cap 10/15/20 Acetaminophen [Tylenol Extra Strength] 500 - 1,000 mg PO Q6H PRN PRN 01/10/21 Primary Care Physician: Richard Corley III, MD [Primary Care Provider] - Test Results: Test results from this visit will be discussed in further detail at your follow- up appointment, if applicable. Please Follow Up With: Sofía Duenas DO When: 1 week
--- NOTE | 2021-01-16 14:12 | OP.PCM_ITS ---
Problem List (1) PMB (postmenopausal bleeding) Status: Acute Report of Operation Date of Procedure: 01/16/21 Pre-Operative Diagnosis: PMB Post-Operative Diagnosis: PMB Surgery/Procedure Performed:: Hysteroscopy, D&C, biopsy of urethral caruncle Description of Surgical Findings:: There was a urethral caruncle noted that was bleeding. Vulvovaginal atrophy noted. The cervix was flush with the vagina given atrophy. Small and normal- appearing uterine cavity, only 1 tubal ostia was visualized. No polyps or fibroids noted. Minimum tissue at time of D&C and it was mucous in appearance. Type of Anesthesia:: MAC Special Medications: None Specimen's removed: Biopsy of urethral caruncle, endometrial curettings Drains: None Estimated Blood Loss (mL): < 50 cc Fluids Replaced: See anesthesia record Description of Procedure: Start time 1344 Stop time 1408 Patient was taken to the operating room where MAC anesthesia was found be adequate. She was prepped and draped in dorsal llithotomy position using yellowfin stirrups. Significant vulvovaginal atrophy was noted, and narrowing of the introitus. There appeared to be a urethral carbuncle and this was bleeding. Using pickups and curved Metzenbaums a small biopsy was taken and it was sent to pathology for review. Two right angle retractors were placed to expose the cervix. The cervix was flush with the vagina given atrophy. The cervix was unable to be grasped with an instrument. A 3-[address] was used to place a stitch in the anterior lip of the cervix for retraction. The cervix was already noted to be dilated given cytotec that the patient had taken. The uterus sounded to 8 cm. The hysteroscope was advanced to the fundus of the uterus and distended with normal saline. The left tubal ostia was visualized but the right tubal ostia was not visualized. No polyps or fibroids were noted. The hysteroscope was removed. A sharp curettage was performed for scant tissue that was mucinous in appearance. Bleeding was hemostatic. All instruments were removed, and the suture was cut. A vaginal sweep was performed. Instrument, needle, sponge counts were correct. The patient was taken recovery room in stable condition. Grafts/Implants Used: None - Complications None - Admit VTE Documentation VTE Present on Admission: No VTE Mechan Device Prophylaxis: SCD's VTE Pharm Prophylaxis ordered?: No
== END 2021-01-16 15:38 | disposition home or self-care (01) ==
LOC: SDC 11:51 → AC 11:52
PROVIDERS: PCP Family Medicine; Referring Provider Obstetrics & Gynecology; Visit Provider Obstetrics & Gynecology
PROC: 0UDB8ZZ Extraction of Endometrium, Via Natural or Artificial Opening Endoscopic (ICD-10-PCS; CPT 58558; principal; 2021-01-16 13:00)
DX: N95.0 Postmenopausal bleeding (principal); N36.2 Urethral caruncle; R10.2 Pelvic and perineal pain; E78.5 Hyperlipidemia, unspecified; I10 Essential (primary) hypertension; G89.29 Other chronic pain; F43.21 Adjustment disorder with depressed mood; K58.1 Irritable bowel syndrome with constipation; Z79.899 Other long term (current) drug therapy; M79.7 Fibromyalgia
CPT/HCPCS: 00952; 58558; 36415; 80048; 85027; 86850; 86900; 86901; 87426; 88305; 88341; 88342; C9803; J7120; J2405

== ENCOUNTER → 2021-04-15 10:38 | Outpatient (CLI) | payer MEDICARE, BC, SELFPAY ==
[2021-04-14 15:24] VITALS: BMI 22.5
[2021-04-15 10:44] LABS: Bacteria 0 SEEN /hpf (None Seen); Mucous, Urine 0 SEEN /hpf (<or=2+)
[2021-04-15 12:09] LABS: Color, Urine Yellow (Yellow); Glucose, Dipstick Normal (Normal); Ketone-Dipstick Negative (Negative); Leukocyte Esterase-Dipstick 500 /ul (Negative); Nitrite-Dipstick Negative (Negative); Occult Blood-Urine 10 /ul (Negative); Protein-Dipstick Negative (Negative); Urine Bilirubin Dipstick Negative (Negative); Urine Clarity Sl. Cloudy (Clear); Urine Urobilinogen Normal (Normal)
[2021-04-15 12:15] LABS: Hematocrit 44.9 % (37-47); Hemoglobin 14.4 g/dL (12.0-15.0); Mean Corp Hgb Conc 32.1 g/dL (32-36); Mean Corpuscular Hgb 28.6 pg (27.0-32.0); Mean Corpuscular Volume 89.3 fL (81-99); Mean Platelet Vol. 10.6 fl (6.2-12.0); Platelet Count 224 K/mm3 (150-450); RBC Distribution Width CV 13.5 % (11.6-14.6); RBC Distribution Width SD 44.2 fl (35.1-43.9); Red Blood Count 5.03 M/mm3 (4.2-5.4); White Blood Count 4.9 K/mm3 (4.4-11.0)
[2021-04-15 12:26] LABS: Red Blood Cells-Urine 0-5 SEEN /hpf (0-5); Squamous Epithelial Cells - UA 0-5 SEEN /hpf (5-10); White Blood Cells 25-50 SEEN /hpf (0-5)
[2021-04-15 12:37] LABS: ALB/GLOB Ratio 1.2 RATIO (0.9-2.4); AST(SGOT) 17 U/L (15-37); Alanine Aminotransfer ALT/SGPT 24 U/L (13-56); Alkaline Phosphatase 109 U/L (45-117); Anion Gap 6 (5-15); BUN 18 mg/dL (7-18); BUN/Creat Ratio 15.4 RATIO (10-20); Calcium,Total 8.8 mg/dL (8.5-10.1); Chloride 107 mmol/L (98-107); Creatinine, Serum 1.17 mg/dL (0.55-1.02); EST Glomerular Filtration Rate 48 mL/min (>60); Est Glom Filt Rate - Afr Amer 58 mL/min (>60); Globulin 3.2 g/dL (2.2-4.2); Glucose 90 mg/dL (74-106); Potassium 4.2 mmol/L (3.5-5.1); Protein, Total 7.2 g/dL (6.4-8.2); Sodium Level 141 mmol/L (136-145); Thyroid Stim Hormone (TSH) 1.51 uIU/mL (0.358-3.74)
== END ==
PROVIDERS: PCP Family Medicine; Referring Provider Psychiatry & Neurology Neurology; Visit Provider Psychiatry & Neurology Neurology
DX: R26.9 Unspecified abnormalities of gait and mobility (principal); R44.3 Hallucinations, unspecified; G20 Parkinson's disease; K59.00 Constipation, unspecified
CPT/HCPCS: 36415; 80053; 81001; 84443; 85027

== ENCOUNTER 2021-09-04 15:29 | Emergency (ER) | payer MEDICARE, BC, SELFPAY ==
[2021-09-04 15:30] VITALS: BP 153/93; PULSE 80; RESP 15; TEMP 36.6; O2SAT 100; BMI 22.4
--- NOTE | 2021-09-04 15:43 | CT_ITS ---
STUDY: CT CHEST, ABDOMEN T PELVIS WITH CONTRAST REASON FOR EXAM: Female, 71 years old. trauma fall, chest pain, abdominal pain. RADIATION DOSAGE (If Supplied By Facility): CTDIvol = ( 11.45 ) mGy, DLP = ( 619.62 ) mGycm TECHNIQUE: Transaxial imaging was performed following intravenous administration of IV 100mL Isovue-300. Individualized dose optimization techniques were used for this CT. COMPARISON: 09/23/2020, 10/07/2018 FINDINGS: CHEST Mild bilateral apical scarring. There is no demonstrated pleural abnormality. Normal heart and pericardium. Normal mediastinum. Normal hilar regions. Normal unenhanced pulmonary arteries. Normal aorta arch and descending thoracic aorta. Moderate levoscoliosis of the lower thoracic spine with degenerative disc disease. There is no demonstrated abnormality of the visualized upper abdomen. ABDOMEN The visualized lung bases are unremarkable. The visualized portions of the heart are within normal limits. Normal liver. There is non-visualization of the gallbladder, which may be secondary to either contraction or a prior cholecystectomy. Normal spleen. Normal pancreas. Normal bilateral adrenal glands. Normal right kidney. There is mild cortical atrophy of the left kidney, consistent with chronic medical renal disease. Normal visualized stomach. Normal small intestine. Normal colon. There is non-visualization of the appendix. Normal abdominal aorta. Normal inferior vena cava. Normal retroperitoneum. Normal abdominal wall. Normal osseous structures. PELVIS Normal urinary bladder. Normal visualized small intestine. Normal visualized colon. There is no pelvic fluid. There is no pelvic lymphadenopathy or mass lesion. Normal visualized pelvic arteries. Normal abdominal wall. Normal osseous structures. CT/CT Chest, Abd, Pel w/Contrast IMPRESSION: 1. No acute traumatic aortic injury. 2. No solid organ or bowel injury. Electronically Signed: Hai Lunsford MD at 17:33 EST Tel , Service support ,
--- NOTE | 2021-09-04 15:46 | EX.ED.GENINJ ---
HPI History of Present Illness Chief Complaint: Fall Detail of Chief Complaint: Fall with injury to chest and abdomen Informant: patient Narrative Narrative: Patient presents to the emergency department with a fall that occurred approximately 3 AM. Patient states that she had gotten up to use the restroom and noticed her granddaughter was uncovered so she was try to cover her back up but then got tangled in her pant leg and fell striking the edge of a small table with her chest and abdomen. Patient was helped up and was in able to get back into bed. This morning she is able to ambulate but complaining of a lot of pain with movement in her chest and abdomen. She denies nausea or vomiting. She denies shortness of breath. She denies striking her head. She is not anticoagulated. [facility] Medical History Essential hypertension Fibromyalgia Hyperlipidemia Irritable bowel syndrome with both constipation and diarrhea Lumbar radiculopathy Parkinsons disease Renal calculus, right Scoliosis of thoracolumbar spine Situational depression Thoracic radiculopathy due to degenerative joint disease of spine Home Medications lisinopril 20 mg PO QHS 04/09/17 [History Last Taken 11/02/19] omeprazole 20 mg capsule,delayed release 20 mg PO BID cap 09/09/20 [History Last Taken Unknown] polyethylene glycol 3350 17 g PO DAILY PRN 09/23/20 [History Last Taken Unknown] gabapentin 100 mg capsule 300 mg PO QHS cap 10/15/20 [History Last Taken Unknown] acetaminophen 500 - 1,000 mg PO Q6H PRN PRN 01/10/21 [History Last Taken Unknown] ofloxacin 0.3 % eye drops 2 drp OPHTHALMIC (EYE) BID ml 03/26/21 [History Last Taken Unknown] amantadine HCl 100 mg capsule 100 mg PO DAILY #30 cap 04/14/21 [Rx Last Taken Unknown] sulfamethoxazole 800 mg-trimethoprim 160 mg tablet 1 tab PO BID #14 tab 04/15/21 [Rx Last Taken Unknown] hydrocodone-acetaminophen 1 tab PO Q4H PRN PRN 2 Days #10 tablet 09/04/21 [Rx Last Taken Unknown] ondansetron 4 mg PO Q8H PRN PRN #10 tab 09/04/21 [Rx Last Taken Unknown] Allergy/AdvReac Type Severity Reaction Status Date / Time nitrofurantoin Allergy Hives Verified 09/04/21 15:33 [From Macrobid] hydrocodone [From Vicodin] AdvReac Vomiting Verified 09/04/21 15:33 morphine AdvReac Vomiting Verified 09/04/21 15:33 pregabalin [From Lyrica] AdvReac Vomiting Verified 09/04/21 15:33 Family History Mother Dementia Surgical History H/O ventral hernia repair History of cataract surgery Hx laparoscopic cholecystectomy Social History Smoking Status: Never smoker Electronic Cigarette Use: not used second hand exposure: No alcohol intake: never substance use type: does not use ROS ROS ED Constitutional Constitutional ED: Reports systems reviewed and no addt'l complaints, except as documented; Denies body ache(s), change in weight or chills Eyes Eyes: Denies acute decrease in peripheral vision, change in vision, double vision or loss of vision ENT ENT ED: Reports none; Denies ear pain, lip swelling, loss taste/smell, neck pain, otalgia or sore throat Cardiovascular Cardiovascular: Reports none and other Details: Right rib pain ; Denies abdominal pain, chest pain with activity, leg edema, lightheadedness, palpitations, rapid heart rate or syncope Respiratory/Chest Respiratory/Chest: Reports none; Denies change in mental status, dry cough, dyspnea, hemoptysis, shortness of breath at rest or shortness of breath with exertion Gastrointestinal Gastrointestinal: Reports none and abdominal pain; Denies change in stool character, diarrhea, hematemesis, hematochezia, melena, rectal bleeding or vomiting Genitourinary Genitourinary ED: Reports none; Denies abdominal discomfort, anuria, dysuria, genital pain or polyuria Musculoskeletal Musculoskeletal: Reports none; Denies arthralgias, back pain, difficulty walking, extremity pain, muscle weakness or myalgias Integumentary Reports none; Denies abscess or rash Neurologic Neurologic: Reports none; Denies abnormal gait, confusion, focal weakness, frequent falls, headache(s), loss of vision, numbness, paresthesias, radicular pain, vertigo or weakness Psychiatric Psychiatric: Reports systems reviewed and no addt'l complaints, except as documented and none; Denies behavioral changes, confusion, difficulty concentrating, hallucinations, suicidal ideation, tactile hallucinations or visual hallucinations Endocrine Endocrinology: Denies none, cold intolerance, excessive sweating, fatigue or heat intolerance Hematologic/Lymphatic Hematologic/Lymphatic: Reports none; Denies anemia, easy bleeding or easy bruising Allergic/Immunologic Allergic/Immunologic ED: Denies as per HPI, none, lip swelling, mouth swelling, throat swelling, tongue swelling or hives EXAM Physical Exam Const Vital Signs: 09/04/21 15:30 09/04/21 15:38 Temperature 98 F Temperature Source Temporal Pulse Rate 80 Respiratory Rate 15 Respiratory Depth Normal Respiratory Pattern Normal Blood Pressure 153/93 H Blood Pressure Mean 113 Pulse Ox 100 Oxygen Delivery Method Room Air Positive well nourished and well developed General Appearance ED: well developed and NAD HEENT Reports TM's clear and moist mucous membranes normocephalic and atraumatic; Negative for trauma or tenderness Tympanic Membrane ED: Yes TM's clear Eyes PERRL and EOMs intact bilaterally General Eye ED: Negative for pale conjunctiva or scleral icterus Neck no lymphadenopathy, supple and no JVD General: Negative for tenderness Chest Wall palpation of chest normal Chest Narrative: Patient has tenderness palpation over the right chest wall diffusely in the midaxillary line. No crepitus or subcu emphysema noted. Exam limited as patient does not tolerate exam very well. There is no ecchymosis or bruising noted however. Chest: Negative for tenderness Resp normal respiratory effort and clear to auscultation bilaterally Effort and Inspection: Negative for respiratory distress or pain with movement Auscultation: Negative for rhonchi, wheezes or diminished lung sounds Cardio regular rate, regular rhythm, S1 normal heart sound, S2 normal heart sound and no murmurs Peripheral Pulses: pulses 2+ throughout GI normal to inspection, nondistended, normoactive bowel sounds, soft to palpation, non-distended and no masses GI Narrative: Patient has tenderness palpation over right upper quadrant and right lower quadrant with guarding. There is no rebound, rigidity, or peritoneal signs. No ecchymosis or bruising noted to the skin. Back/Spine no CVA tenderness and no thoracic nor lumbar tenderness Extremity normal to inspection General Extremety ED: Negative for edema General Extremity: Negative for edema Neuro oriented x3, CN's II-XII intact bilaterally, no sensory deficits noted and gait normal Sensorium / Orientation: awake, alert, oriented to person, oriented to place and oriented to time Motor Exam: strength 5/5 throughout and strength abnormal Psych mental status grossly normal Skin no rashes or lesions noted and no wounds MDM MDM MDM Narrative Medical decision making narrative: Patient had a CT scan of the chest and abdomen given her complaint of the trauma was concerned about potential rib fractures and trauma to her liver. Scans were unremarkable. Lab work was unremarkable. She received Tylenol in the department. I discussed case with patient and her family member who is now with her. I will write her a prescription for few [place] for pain as well as Zofran. She is to follow-up with her primary care physician within next 5 to 7 days. She is to return if increased difficulty breathing, hemoptysis, shortness of breath, or conditions worsen anyway. Lab Data Attestation: I reviewed the patient's lab results. Labs: Laboratory Results - last 24 hr 09/04/21 09/04/21 16:04 16:04 WBC 6.2 RBC 4.99 Hgb 14.4 Hct 45.8 MCV 91.8 MCH 28.9 MCHC 31.4 L RDW Std Deviation 43.6 RDW Coeff of Brady 12.9 Plt Count 231 MPV 9.8 Immature Gran % (Auto) 0.200 Neut % (Auto) 65.0 Lymph % (Auto) 24.0 Granite % (Auto) 9.2 Eos % (Auto) 1.1 Baso % (Auto) 0.5 Absolute Neuts (auto) 4.0 Absolute Lymphs (auto) 1.49 Nucleated RBC % 0 Sodium 142 Potassium 4.1 Chloride 110 H Carbon Dioxide 29.0 Anion Gap 3 L BUN 17 Creatinine 1.08 H Estim Creat Clear Calc 38.38 Est GFR (MDRD) Af Amer 64 Est GFR (MDRD) Non-Af 53 L BUN/Creatinine Ratio 15.7 Glucose 95 Calcium 9.2 Total Bilirubin 1.00 AST 15 ALT 22 Alkaline Phosphatase 94 Total Protein 7.2 Albumin 3.8 Globulin 3.4 Albumin/Globulin Ratio 1.1 Radiography Diagnostic Testing: Clinical Impression(s) from Imaging Studies Chest/Abdomen/Pelvis CT 09/04/21 15:43 IMPRESSION: 1. No acute traumatic aortic injury. 2. No solid organ or bowel injury. Electronically Signed: Hai Lunsford MD at 17:33 EST Tel , Service support , Discharge Plan Triage Chief Complaint: Fall ED Provider: Huy Mims Dx/Rx/DC Orders Clinical Impression: Contusion of chest, Abdominal contusion Instructions: ED Abd Injury Blunt Benign, ED Mechanical Fall, ED Contusion, Rib Prescriptions: New hydrocodone-acetaminophen [hydrocodone-acetaminophen] 1 TABLET tablet 1 tab PO Q4H PRN PRN (Reason: Pain) 2 Days Qty: 10 RF: 0 ondansetron [ondansetron] 4 MG tablet 4 mg PO Q8H PRN PRN (Reason: Nausea) Qty: 10 RF: 0 No Action gabapentin 100 mg capsule 300 mg PO QHS RF: 0 ofloxacin 0.3 % drops 2 drp ophthalmic (eye) BID RF: 0 amantadine HCl 100 mg capsule 100 mg PO DAILY Qty: 30 RF: 1 lisinopril 20 MG tablet 20 mg PO QHS RF: 0 omeprazole 20 mg capsule,delayed release(DR/EC) 20 mg PO BID RF: 0 polyethylene glycol 3350 17 GM powder in packet 17 g PO DAILY PRN (Reason: Constipation) RF: 0 acetaminophen 500 MG tablet 500 - 1,000 mg PO Q6H PRN PRN (Reason: Pain 1-10 Or Fever) RF: 0 sulfamethoxazole-trimethoprim [Bactrim DS] 800-160 mg tablet 1 tab PO BID Qty: 14 RF: 0 Primary Care Provider: Care Physician,No Primary Referrals: Care Physician,No Primary [Primary Care Provider] - Activity Restrictions/Additional Instructions: See your doctor in 5 to 7 days. Disposition Disposition: Home, Self Care
[2021-09-04 16:15] LABS: Absolute Lymphocyte Count 1.49 X10^3/uL (0.83-4.51); Basophil# 0.03 X10^3/uL; Basophil% 0.5 % (0-1); Eosinophil# 0.07 X10^3/uL; Eosinophils% 1.1 % (0-5); Hematocrit 45.8 % (37-47); Hemoglobin 14.4 g/dL (12.0-15.0); Lymphocyte # 1.49 X10^3/ul (0.83-4.51); Mean Corp Hgb Conc 31.4 g/dL (32-36); Mean Corpuscular Hgb 28.9 pg (27.0-32.0); Mean Corpuscular Volume 91.8 fL (81-99); Mean Platelet Vol. 9.8 fl (6.2-12.0); Monocyte# 0.57 X10^3/uL; Monocyte% 9.2 % (0-10); NRBC Flagged by Analyzer 0 % (0-5); Neutrophil # 4.03 X10^3/uL (2.7-7.7); Platelet Count 231 K/mm3 (150-450); RBC Distribution Width CV 12.9 % (11.6-14.6); RBC Distribution Width SD 43.6 fl (35.1-43.9); Red Blood Count 4.99 M/mm3 (4.2-5.4); White Blood Count 6.2 K/mm3 (4.4-11.0)
[2021-09-04 16:34] LABS: ALB/GLOB Ratio 1.1 RATIO (0.9-2.4); AST(SGOT) 15 U/L (15-37); Alanine Aminotransfer ALT/SGPT 22 U/L (13-56); Albumin, Serum 3.8 g/dL (3.2-5.0); Alkaline Phosphatase 94 U/L (45-117); Anion Gap 3 (5-15); BUN 17 mg/dL (7-18); BUN/Creat Ratio 15.7 RATIO (10-20); Calcium,Total 9.2 mg/dL (8.5-10.1); Chloride 110 mmol/L (98-107); Creatinine, Serum 1.08 mg/dL (0.55-1.02); EST Glomerular Filtration Rate 53 mL/min (>60); Est Glom Filt Rate - Afr Amer 64 mL/min (>60); Estimated Creatinine Clearance 38.38 ml/min; Globulin 3.4 g/dL (2.2-4.2); Glucose 95 mg/dL (74-106); Potassium 4.1 mmol/L (3.5-5.1); Protein, Total 7.2 g/dL (6.4-8.2); Sodium Level 142 mmol/L (136-145)
--- NOTE | 2021-09-04 17:29 | CM.ED ---
SW Note Referral Reason: NO PCP Referral Source: Case Find SW met with patient and female support in the room. SW introduced self. Patient's support said that patient's PCP was Dr. Corley but now it is Dr. Briseno. No further SW needs at this time. Marcela DOMINIQUE
[2021-09-04] MEDS: Acetaminophen 325 MG Tablet 650 MG PO (17:44)
[2021-09-04 17:52] VITALS: BP 144/94; PULSE 72; RESP 18; O2SAT 99
== END 2021-09-04 17:59 | disposition home or self-care (01) ==
PROVIDERS: Emergency Provider Emergency Medicine
DX: S20.219A Contusion of unspecified front wall of thorax, initial encounter (principal); S30.1XXA Contusion of abdominal wall, initial encounter; W01.190A Fall on same level from slipping, tripping and stumbling with subsequent striking against furniture, initial encounter; Y93.89 Activity, other specified; Y92.89 Other specified places as the place of occurrence of the external cause; Y99.8 Other external cause status; I10 Essential (primary) hypertension; M79.7 Fibromyalgia; E78.5 Hyperlipidemia, unspecified; G20 Parkinson's disease; K58.0 Irritable bowel syndrome with diarrhea; Z87.442 Personal history of urinary calculi
CPT/HCPCS: 71260; 74177; 80053; 85025; 99284; Q9967; A4216

== ENCOUNTER 2022-05-15 14:02 | Observation (INO) | payer MEDICARE, BC, SELFPAY ==
[2022-05-15 14:03] VITALS: BP 147/88; PULSE 96; RESP 16; TEMP 37.8; O2SAT 100; BMI 21.4
--- NOTE | 2022-05-15 14:33 | ED.VIS.BACK ---
HPI History of Present Illness Chief Complaint: Back Informant: patient and family Onset/Context/Timing Onset: Days Context: Gradual Onset Timing: Continuous Quality: Sharp Location: Lumbar Current Severity: Moderate Maximum Severity: Moderate Worsened by: improves with Movement Associated Symptoms Associated Symptoms: Negative for Numbness, Tingling, Radiation to Right Leg, Radiation to Left Leg, Fever, Abdominal Pain, Dysuria, Unable to Ambulate, Unable to Transfer, Urinary Retention, Urinary Incontinence, Constipation or Fecal Incontinence Narrative Narrative: [id number] female with fibromyalgia, Parkinson's disease, hypertension and chronic back pain. States the last several days she has had lower back pain going across her lower back iliac crest that she states is burning. She thinks is secondary to her sciatica. She said it hurts a lot more to move. She denies any dysuria. She denies any falls or trauma. She has had no prior back surgery. She denies any vomiting or diarrhea. No bowel or bladder incontinence. Prior similar symptoms: Yes Recent Illness/Hospitalization: No PFSH PFSH Medical History Essential hypertension Fibromyalgia Hyperlipidemia Irritable bowel syndrome with both constipation and diarrhea Lumbar radiculopathy Parkinsons disease Renal calculus, right Scoliosis of thoracolumbar spine Situational depression Thoracic radiculopathy due to degenerative joint disease of spine Home Medications lisinopril 20 mg tablet 20 mg PO QHS blood pressure 04/09/17 [History Last Taken 11/02/19] omeprazole 20 mg capsule,delayed release 20 mg PO BID GERD 09/09/20 [History Last Taken Unknown] polyethylene glycol 3350 17 gram oral powder packet 17 g PO DAILY PRN Constipation 09/23/20 [History Last Taken Unknown] gabapentin 100 mg capsule 300 mg PO QHS 10/15/20 [History Last Taken Unknown] acetaminophen 500 mg tablet 500 - 1,000 mg PO Q6H PRN PRN Pain 1-10 Or Fever 01/10/21 [History Last Taken Unknown] ofloxacin 0.3 % eye drops 2 drp ophthalmic (eye) BID 03/26/21 [History Last Taken Unknown] amantadine HCl 100 mg capsule 100 mg PO DAILY #30 caps 04/14/21 [Rx Last Taken Unknown] sulfamethoxazole 800 mg-trimethoprim 160 mg tablet (Bactrim DS) 1 tab PO BID #14 tabs 04/15/21 [Rx Last Taken Unknown] hydrocodone-acetaminophen 5-325mg 5mg-325mg 1 tab PO Q4H PRN PRN Pain 2 days #10 TABLETS 09/04/21 [Rx Last Taken Unknown] ondansetron 4 mg disintegrating tablet 4 mg PO Q8H PRN PRN Nausea #10 tabs 09/04/21 [Rx Last Taken Unknown] Allergy/AdvReac Type Severity Reaction Status Date / Time nitrofurantoin Allergy Hives Verified 05/15/22 14:05 [From Macrobid] hydrocodone [From Vicodin] AdvReac Vomiting Verified 05/15/22 14:05 morphine AdvReac Vomiting Verified 05/15/22 14:05 pregabalin [From Lyrica] AdvReac Vomiting Verified 05/15/22 14:05 Family History Mother Dementia Surgical History H/O ventral hernia repair History of cataract surgery Hx laparoscopic cholecystectomy Social History Smoking Status: Never smoker Electronic Cigarette Use: not used second hand exposure: No alcohol intake: never substance use type: does not use ROS ROS ED ROS Narrative Mild cough. Review of Systems ROS Unobtainable: Denies due to encephalopathy Constitutional Constitutional ED: Denies chills or fever(s) Eyes Eyes: Denies blurry vision ENT ENT ED: Denies ear pain, rhinorrhea or sore throat Cardiovascular Cardiovascular: Denies chest pain Respiratory/Chest Respiratory/Chest: Denies dyspnea Gastrointestinal Gastrointestinal: Denies abdominal pain, constipation, diarrhea, melena, nausea or vomiting Genitourinary Genitourinary ED: Denies dysuria or hematuria Musculoskeletal Musculoskeletal: Reports back pain; Denies arthralgias Integumentary Denies abscess Neurologic Neurologic: Denies headache(s) Psychiatric Psychiatric: Denies anxiety Endocrine Endocrinology: Denies cold intolerance Hematologic/Lymphatic Hematologic/Lymphatic: Denies easy bleeding Allergic/Immunologic Allergic/Immunologic ED: Denies mouth swelling EXAM Physical Exam Narrative Exam Narrative: 70-year-old female vital signs are stable she does have a low-grade temperature 100.1. Does not look septic or toxic. Pulse ox on percent on room air no hypoxia. She is in no distress. H EENT exam unremarkable atraumatic. Neck nontender no lymphadenopathy. Lungs clear to auscultation bilaterally. Heart regular rhythm rate about 90 no murmur. Abdomen soft nontender. Moving all 4 extremities. Trace edema both ankles. 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 Normal dorsi plantar flexion. Neurologically she is awake and alert. Answers questions follows commands. Lying on her right side moving her she had increased lower back pain. There is some reproducible pain along her iliac crest and lower lumbar spine and paraspinal area. There is no redness. No signs of trauma. Neurologically she is awake and alert. She has Parkinson's tremors. 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 Dorsi and plantar flexion. There is no cauda equina. Const Vital Signs: 05/15/22 14:03 Temperature 100.1 F H Temperature Source Temporal Pulse Rate 96 Respiratory Rate 16 Blood Pressure 147/88 H Blood Pressure Mean 107 Pulse Ox 100 Oxygen Delivery Method Room Air Positive well nourished and well developed; Negative for obese, cachectic, contractures or unkempt General Appearance ED: well developed; Negative for unkempt, cachectic, contractures or pallor Nutritional Appearance: Negative for cachectic or obese HEENT Reports moist mucous membranes; Denies dry mucous membranes Negative for trauma Mouth ED: No dry mucous membranes Mouth: No dry mucous membranes Eyes PERRL and EOMs intact bilaterally Neck no lymphadenopathy, supple and no JVD General: Negative for tenderness Resp normal respiratory effort and clear to auscultation bilaterally Effort and Inspection: Negative for pain with movement Auscultation: Negative for rales or rhonchi Percussion: Negative for other Cardio regular rate, regular rhythm, S1 normal heart sound, S2 normal heart sound and no murmurs GI normal to inspection, nondistended, normoactive bowel sounds, soft to palpation, non-tender, non-distended and no masses Inspection: Negative for abdominal distention Auscultation: Negative for hyperactive bowel sounds Palpation: Negative for tender Back/Spine normal to inspection and no thoracic nor lumbar tenderness General Back: Negative for CVA tenderness Cervical Spine: Negative for cervical spine tenderness Thoracic Spine / Upper Back: paraspinal muscle tenderness Extremity normal to inspection; Negative for no clubbing, cyanosis or edema General Extremety ED: Yes edema; Negative for tenderness General Extremity: edema Neuro oriented x3 Sensorium / Orientation: alert; Negative for confused or lethargic Sensory Exam: No other Motor Exam: strength 5/5 throughout Psych mental status grossly normal Appearance: Negative for unkempt Attitude: No agitated Mood & Affect: Negative for depressed or sad Skin no rashes or lesions noted and no wounds General Skin Exam: Negative for jaundice or pallor Lesions: No lesion noted Rashes: No rashes noted Trauma: Negative for abrasion Wounds: Negative for wounds noted MDM MDM MDM Narrative Medical decision making narrative: Older female that may does have musculoskeletal back pain. However she does have a low-grade temperature 100.1. She does not look septic or toxic but looks like she does not feel well. Screening labs chest x-ray will be obtained. Also urinalysis. Due to her recent cough also obtain a COVID test. Repeat exam at 4:30 PM. Went over all test results with patient and her daughter. We tried to stand and walk her and she is just too weak and was unable to ambulate. I will speak to the hospitalist about admission. Lab Data Attestation: I reviewed the patient's lab results. Lab results narrative: CBC shows a white count of 7. H&H of 14 and 45. Platelets are unremarkable. Electrolytes unremarkable gap of 4 normal BUN and creatinine of 14 and 1.1. Glucose 101. Chest x-ray negative. UA negative. 5-10 red cells no white cells. 1+ bacteria. No nitrites. Rapid COVID antigen test is positive. Chest x-ray negative. Labs: Laboratory Results - last 24 hr 05/15/22 05/15/22 05/15/22 14:49 14:49 15:30 WBC 7.2 RBC 4.99 Hgb 14.5 Hct 45.5 MCV 91.2 MCH 29.1 MCHC 31.9 L RDW Std Deviation 45.3 H RDW Coeff of Brady 13.5 Plt Count 165 MPV 9.9 Immature Gran % (Auto) 0.300 Neut % (Auto) 81.7 H Lymph % (Auto) 8.3 L [place] % (Auto) 9.4 Eos % (Auto) 0.0 Baso % (Auto) 0.3 Absolute Neuts (auto) 5.9 Absolute Lymphs (auto) 0.60 L Nucleated RBC % 0 Differential Comment SEE COMMENT Platelet Estimate ADEQUATE RBC Morphology N CHROM Anisocytosis RARE Macrocytosis RARE Sodium 140 Potassium 4.4 Chloride 107 Carbon Dioxide 29.0 Anion Gap 4 L BUN 14 Creatinine 1.15 H Estim Creat Clear Calc 35.50 Est GFR (MDRD) Af Amer 59 L Est GFR (MDRD) Non-Af 49 L BUN/Creatinine Ratio 12.2 Glucose 101 Calcium 9.0 Urine Color Yellow Urine Clarity Clear Urine pH 7.0 Ur Specific [place] 1.010 Urine Protein 15 H Urine Glucose (UA) Normal Urine Ketones 5 H Urine Occult Blood 10 H Urine Nitrite Negative Urine Bilirubin Negative Urine Urobilinogen 1 H Ur Leukocyte Esterase Negative Urine RBC 5-10 SEEN Urine WBC 0 SEEN Ur Squamous Epith Cells 0 SEEN Urine Bacteria 1+ Urine Mucus 0 SEEN Radiography Diagnostic Testing: Clinical Impression(s) from Imaging Studies Chest X-Ray 05/15/22 14:59 IMPRESSION: No acute cardiopulmonary process identified. Electronically Signed: Lise Carvalho MD at 15:14 EDT Reading Location ID and State: [facility] / [place] Tel , Service support , Chest x-ray, portable, single view interpreted by myself and radiologist shows no acute abnormality. Normal cardiac silhouette. No infiltrate. Discharge Plan Triage Chief Complaint: Back ED Provider: Brett Roblero Dx/Rx/DC Orders Clinical Impression: Weakness, COVID-19, Unable to ambulate, Acute exacerbation of chronic low back pain Prescriptions: No Action gabapentin 100 mg capsule 300 mg PO QHS ofloxacin 0.3 % drops 2 drp ophthalmic (eye) BID amantadine HCl 100 mg capsule 100 mg PO DAILY Qty: 30 1RF lisinopril 20 MG tablet 20 mg PO QHS omeprazole 20 mg capsule,delayed release(DR/EC) 20 mg PO BID polyethylene glycol 3350 17 GM powder in packet 17 g PO DAILY PRN (Reason: Constipation) acetaminophen 500 MG tablet 500 - 1,000 mg PO Q6H PRN PRN (Reason: Pain 1-10 Or Fever) hydrocodone-acetaminophen [hydrocodone-acetaminophen] 1 TABLET tablet 1 tab PO Q4H PRN PRN (Reason: Pain) 2 Days Qty: 10 0RF ondansetron [ondansetron] 4 MG tablet 4 mg PO Q8H PRN PRN (Reason: Nausea) Qty: 10 0RF sulfamethoxazole-trimethoprim [Bactrim DS] 800-160 mg tablet 1 tab PO BID Qty: 14 0RF Primary Care Provider: Care Physician,No Primary Referrals: Care Physician,No Primary [Primary Care Provider] - Disposition Disposition: Acute Care [facility]
[2022-05-15] MEDS: Ondansetron 4 MG/2 ML Vial IV (14:47)
[2022-05-15] MEDS: Morphine 4 MG/ML Syringe IV (14:47)
--- NOTE | 2022-05-15 14:59 | RAD_ITS ---
HISTORY: cough. TECHNIQUE: XR Chest 1 View. COMPARISON: 09/23/2020. FINDINGS: CARDIOMEDIASTINAL BORDERS: Cardiac silhouette within normal limits in size. Mediastinal contour unchanged with tortuosity and calcification of the aorta. LUNGS: Radiographically clear. PLEURA: No pleural effusion or pneumothorax seen. OSSEOUS STRUCTURES: Scoliosis and degenerative change. RAD/Chest 1 View (Portable) IMPRESSION: No acute cardiopulmonary process identified. Electronically Signed: Lise Carvalho MD at 15:14 EDT ,
[2022-05-15 15:01] LABS: Absolute Neutrophil Count 5.9 X10^3/uL (2.0-7.7); Basophil# 0.02 X10^3/uL; Basophil% 0.3 % (0-1); Hematocrit 45.5 % (37-47); Hemoglobin 14.5 g/dL (12.0-15.0); Lymphocyte % 8.3 % (19-41); Mean Corp Hgb Conc 31.9 g/dL (32-36); Mean Corpuscular Hgb 29.1 pg (27.0-32.0); Mean Corpuscular Volume 91.2 fL (81-99); Mean Platelet Vol. 9.9 fl (6.2-12.0); Monocyte# 0.68 X10^3/uL; Monocyte% 9.4 % (0-10); NRBC Flagged by Analyzer 0 % (0-5); Neutrophil % 81.7 % (47-70); POSITIVE DIFFERENTIAL YES; Platelet Count 165 K/mm3 (150-450); RBC Distribution Width CV 13.5 % (11.6-14.6); RBC Distribution Width SD 45.3 fl (35.1-43.9); Red Blood Count 4.99 M/mm3 (4.2-5.4); White Blood Count 7.2 K/mm3 (4.4-11.0)
[2022-05-15 15:07] LABS: Differential Indicated SCAN CRITERIA MET
[2022-05-15 15:14] LABS: Anion Gap 4 (5-15); BUN 14 mg/dL (7-18); BUN/Creat Ratio 12.2 RATIO (10-20); Chloride 107 mmol/L (98-107); Creatinine, Serum 1.15 mg/dL (0.55-1.02); EST Glomerular Filtration Rate 49 mL/min (>60); Est Glom Filt Rate - Afr Amer 59 mL/min (>60); Glucose 101 mg/dL (74-106); Potassium 4.4 mmol/L (3.5-5.1); Sodium Level 140 mmol/L (136-145)
[2022-05-15 15:39] LABS: Mucous, Urine 0 SEEN /hpf (<or=2+); White Blood Cells 0 SEEN /hpf (0-5)
[2022-05-15 15:51] LABS: Color, Urine Yellow (Yellow); Glucose, Dipstick Normal (Normal); Ketone-Dipstick 5 mg/dl (Negative); Leukocyte Esterase-Dipstick Negative /ul (Negative); Nitrite-Dipstick Negative (Negative); Occult Blood-Urine 10 /ul (Negative); Protein-Dipstick 15 mg/dl (Negative); Urine Bilirubin Dipstick Negative (Negative); Urine Clarity Clear (Clear); Urine Urobilinogen 1 mg/dl (Normal)
[2022-05-15 16:08] LABS: Anisocytosis RARE; Macrocytosis RARE; Platelet Estimate ADEQUATE (ADEQ); Red Cell Morphology N CHROM NORMAL (NORM C&C)
[2022-05-15 16:15] LABS: Bacteria 1+ /hpf (None Seen); Red Blood Cells-Urine 5-10 SEEN /hpf (0-5); Squamous Epithelial Cells - UA 0 SEEN /hpf (5-10)
[2022-05-15 16:51] VITALS: BP 159/82; PULSE 89; RESP 18; TEMP 38.3; O2SAT 96
--- NOTE | 2022-05-15 17:28 | HP.PCM.HOS_ITS ---
Documented by User: Sandra Lim NP, FABRIC WORKER FOREMAN-C 05/15/22 17:43 HPI - General General Date of Admission: 05/15/22 Date of Service: 05/15/22 Chief Complaint: Back pain. HPI Narrative MEL MERINO, is a 72 F who presents to the emergency room due to intractable back pain. Patient reports worsening lower back pain over the past few days which goes down both legs. She states symptoms feel similar to prior episodes of sciatica. She states she is having difficulty ambulating due to severe pain. She denies history of fall or injury at home. She denies prior back surgery. She states it has been years since she has had an MRI. Patient sees pain management in [place] with history of back injections. She denies any loss of bowel or bladder function. Denies urinary symptoms. Reports dry cough which be allie today. Denies other URI symptoms. Patient noted to have low-grade fever in the emergency room and tested positive for COVID-19. She is not vaccinated and denies prior history of COVID. She has a past medical history of Parkinson's disease, hypertension, chronic back pain. [facility] Medical History (Updated 05/15/22 @ 18:35 by Minna Stockton) Essential hypertension Fibromyalgia GERD (gastroesophageal reflux disease) Hyperlipidemia Irritable bowel syndrome with both constipation and diarrhea Lumbar radiculopathy Non-smoker Parkinsons disease Renal calculus, right Scoliosis of thoracolumbar spine Situational depression Thoracic radiculopathy due to degenerative joint disease of spine Home Medications lisinopril 20 mg tablet 20 mg PO QHS blood pressure 04/09/17 [History Last Taken 05/14/22] omeprazole 20 mg capsule,delayed release 20 mg PO BID GERD 09/09/20 [History Last Taken 05/14/22] gabapentin 100 mg capsule 300 mg PO BID 10/15/20 [History Last Taken 05/14/22] acetaminophen 500 mg tablet 500 - 1,000 mg PO Q6H PRN PRN Pain 1-10 Or Fever 01/10/21 [History Last Taken Unknown] amantadine HCl 100 mg capsule 100 mg PO DAILY #30 caps 04/14/21 [Rx Last Taken 05/14/22] Allergy/AdvReac Type Severity Reaction Status Date / Time nitrofurantoin Allergy Hives Verified 05/15/22 14:05 [From Macrobid] hydrocodone [From Vicodin] AdvReac Vomiting Verified 05/15/22 14:05 morphine AdvReac Vomiting Verified 05/15/22 14:05 pregabalin [From Lyrica] AdvReac Vomiting Verified 05/15/22 14:05 Family History (Updated 05/15/22 @ 17:37 by Sandra Lim NP, FABRIC WORKER FOREMAN-C) Mother Dementia Father No cardiac disease Surgical History (Updated 05/15/22 @ 18:35 by Minna Stockton) H/O ventral hernia repair History of cataract surgery History of cholecystectomy Hx laparoscopic cholecystectomy Social History Smoking Status: Never smoker Electronic Cigarette Use: not used second hand exposure: No alcohol intake: never substance use type: does not use ROS Constitutional Constitutional: Reports chills, fatigue, fever(s) and weakness; Denies change in weight Cardiovascular Cardiovascular: Reports edema; Denies chest pain, lightheadedness, palpitations or syncope Respiratory/Chest Respiratory/Chest: Reports cough; Denies dyspnea, productive cough, shortness of breath at rest, shortness of breath with exertion or wheezing Gastrointestinal Gastrointestinal: Denies abdominal pain, constipation, diarrhea, nausea or vomiting Genitourinary Genitourinary: Denies burning urination, difficulty urinating, dysuria, hematuria, urinary frequency, urinary incontinence or urinary urgency Musculoskeletal Musculoskeletal: Reports back pain; Denies joint pain or muscle weakness Integumentary Integumentary: Denies erythema, lesions, rash or wounds Neurologic Neurologic: Denies abnormal speech, confusion, dizziness, focal weakness, numb ness, paresthesias, seizure-like activity or syncope Psychiatric Psychiatric: Denies anxiety or depression Hematologic/Lymphatic Hematologic/Lymphatic: Denies anemia, easy bleeding or easy bruising Allergic/Immunologic Allergic/Immunologic: Denies hives or asthma Vital Signs Vital Signs Vital Signs: 05/15/22 14:03 05/15/22 16:51 Temperature 100.1 F H 100.9 F H Temperature Source Temporal Oral Pulse Rate 96 89 Respiratory Rate 16 18 Blood Pressure 147/88 H 159/82 H Blood Pressure Mean 107 107 Pulse Ox 100 96 Oxygen Delivery Method Room Air Room Air Weight Weight: 121 lb Body Mass Index (BMI) 21.4 Physical Exam Const alert and oriented x3 Constitutional Narrative: Appears fatigued, drowsy Nutritional Appearance: cachectic HEENT normocephalic Mouth: dry mucous membranes Eyes PERRL, EOMs intact bilaterally and conjunctivae normal Neck no lymphadenopathy Resp normal respiratory effort and clear to auscultation bilaterally Cardio regular rate, regular rhythm and no murmurs Peripheral Pulses: pulses 2+ throughout GI normal to inspection, nondistended, normoactive bowel sounds, non-tender and non-distended Extremity normal to inspection Extremity Narrative: Bilateral lower extremity weakness Skin no rashes or lesions noted Lesions: no lesions Rashes: no rashes Trauma: no lacerations or abrasions Neuro CN's II-XII intact bilaterally, no focal motor deficits, no sensory deficits noted and deep tendon reflexes 2+ bilaterally Psych mental status grossly normal and affect normal Results Lab / Micro Data Result Diagrams: 05/15/22 14:49 05/15/22 14:49 Labs: Laboratory Results - last 24 hr 05/15/22 14:49: WBC 7.2, RBC 4.99, Hgb 14.5, Hct 45.5, MCV 91.2, MCH 29.1, MCHC 31.9 L, RDW Std Deviation 45.3 H, RDW Coeff of Brady 13.5, Plt Count 165, MPV 9.9, Immature Gran % (Auto) 0.300, Neut % (Auto) 81.7 H, Lymph % (Auto) 8.3 L, [place] % (Auto) 9.4, Eos % (Auto) 0.0, Baso % (Auto) 0.3, Absolute Neuts (auto) 5.9, Absolute Lymphs (auto) 0.60 L, Nucleated RBC % 0, Differential Comment SEE COMMENT, Platelet Estimate ADEQUATE, RBC Morphology N CHROM, Anisocytosis RARE, Macrocytosis RARE 05/15/22 14:49: Sodium 140, Potassium 4.4, Chloride 107, Carbon Dioxide 29.0, Anion Gap 4 L, BUN 14, Creatinine 1.15 H, Estim Creat Clear Calc 35.50, Est GFR (MDRD) Af Amer 59 L, Est GFR (MDRD) Non-Af 49 L, BUN/Creatinine Ratio 12.2, Glucose 101, Calcium 9.0 05/15/22 15:30: Urine Color Yellow, Urine Clarity Clear, Urine pH 7.0, Ur Specific [place] 1.010, Urine Protein 15 H, Urine Glucose (UA) Normal, Urine Ketones 5 H, Urine Occult Blood 10 H, Urine Nitrite Negative, Urine Bilirubin Negative, Urine Urobilinogen 1 H, Ur Leukocyte Esterase Negative, Urine RBC 5-10 SEEN, Urine WBC 0 SEEN, Ur Squamous Epith Cells 0 SEEN, Urine Bacteria 1+, Urine Mucus 0 SEEN Micro: Microbiology 05/15/22 15:39 Nasal Secretion SARS-CoV-2 Antigen (Rapid) - Final SARS-CoV-2 (COVID 19) Radiology Impression Chest X-Ray 05/15/22 14:59 IMPRESSION: No acute cardiopulmonary process identified. Electronically Signed: Lise Carvalho MD at 15:14 EDT , Assessment & Plan Assessment/Plan (1) COVID-19: (2) Acute exacerbation of chronic low back pain: PLAN: Plan 1. Acute intractable back pain, history of chronic back pain-PT/OT. IV Decadron. Obtain MRI in a.m. Continue home gabapentin regimen. PRN pain regimen. 2. [id number] stable. Chest x-ray unremarkable. Low-grade fever, otherwise asymptomatic. Monitor. Maintain precautions per protocol. Unvacc inated. Symptom onset 05/15/2022. 3. Parkinson's disease-follows with neurology. Continue home medication regimen. 4. Hypertension-stable, continue lisinopril. 5. Chronic kidney disease stage IIIa-at baseline. DVT prophylaxis-heparin sc This patient was seen by JORDON Curry under the supervision of Dr. Acosta. Time spent examining patient, reviewing data and subsequent management of care: 25 minutes Documented by User: Dr. Gavino Acosta, 05/15/22 18:40 HPI - General General Date of Admission: 05/15/22 [facility] Medical History (Updated 05/15/22 @ 18:35 by Minna Stockton) Essential hypertension Fibromyalgia GERD (gastroesophageal reflux disease) Hyperlipidemia Irritable bowel syndrome with both constipation and diarrhea Lumbar radiculopathy Non-smoker Parkinsons disease Renal calculus, right Scoliosis of thoracolumbar spine Situational depression Thoracic radiculopathy due to degenerative joint disease of spine Home Medications lisinopril 20 mg tablet 20 mg PO QHS blood pressure 04/09/17 [History Last Taken 05/14/22] omeprazole 20 mg capsule,delayed release 20 mg PO BID GERD 09/09/20 [History Last Taken 05/14/22] gabapentin 100 mg capsule 300 mg PO BID 10/15/20 [History Last Taken 05/14/22] acetaminophen 500 mg tablet 500 - 1,000 mg PO Q6H PRN PRN Pain 1-10 Or Fever 01/10/21 [History Last Taken Unknown] amantadine HCl 100 mg capsule 100 mg PO DAILY #30 caps 04/14/21 [Rx Last Taken 05/14/22] Allergy/AdvReac Type Severity Reaction Status Date / Time nitrofurantoin Allergy Hives Verified 05/15/22 14:05 [From Macrobid] hydrocodone [From Vicodin] AdvReac Vomiting Verified 05/15/22 14:05 morphine AdvReac Vomiting Verified 05/15/22 14:05 pregabalin [From Lyrica] AdvReac Vomiting Verified 05/15/22 14:05 Family History (Updated 05/15/22 @ 17:37 by Sandra Lim FABRIC WORKER FOREMAN, FABRIC WORKER FOREMAN-C) Mother Dementia Father No cardiac disease Surgical History (Updated 05/15/22 @ 18:35 by Minna Stockton) H/O ventral hernia repair History of cataract surgery History of cholecystectomy Hx laparoscopic cholecystectomy Social History Smoking Status: Never smoker Electronic Cigarette Use: not used second hand exposure: No alcohol intake: never substance use type: does not use Results Lab / Micro Data Result Diagrams: 05/15/22 14:49 05/15/22 14:49 Assessment & Plan Assessment/Plan (1) COVID-19: (2) Acute exacerbation of chronic low back pain: Charges/Coding Addendum Addendum: Patient was seen and examined independently of Sandra Lim today, she came to the ER today with complaints of bilateral leg pain radiating from her lower back. Patient has had a history of sciatica and is active with chronic pain management in [place]. It is been many years since she has had an MRI-she does not recall the last time she had an MRI of her back. On examination she appeared frail and unwell, she is in moderate distress due to bilateral leg pain. Vital signs as documented. Skin warm and dry and without overt rashes. Neck without JVD, thyroid appears normal, trachea is midline, neck is supple. Lungs clear, normal air movement was noted. Heart exam notable for regular rhythm, normal sounds and absence of murmurs, rubs or gallops. Abdomen unremarkable and without evidence of organomegaly, masses, or abdominal aortic enlargement, bowel sounds are present in all 4 quadrants, no abdominal tenderness was noted. Extremities nonedematous, no cyanosis was noted, no c lubbing was noted. Neuro: Cranial nerves II through XII are grossly intact, patient has a resting tremor in her hands bilaterally, no focal motor deficits were noted, sensation to light touch and pinprick is intact, patient was unable to ambulate with assistance. Psych: Patient is alert and oriented x3, she does appear anxious at times. Impression: #1 bilateral radicular leg pain-probably secondary to spinal stenosis or herniated disc, patient will be placed in observation status on MedSurg 3, she will undergo an MRI, she was placed on IV Decadron and she will be given IV narcotics as needed for pain. Patient will be seen by PT and OT #2 COVID-19 infection without hypoxia and pneumonia-patient will be placed on IV Decadron, she is not a candidate for remdesivir #3 Parkinson's disease-patient will remain on her current medications #4 essential hypertension-patient will be maintained on her home medications #5 hyperlipidemia-patient will remain on her home medication I have reviewed Sandra Lim's history and physical including her medical assessment and plan of care and with the above additions endorse it. Total clinical time spent by myself addressing the patient's medical issues, reviewing the data, and collaborating with the patient's care team: 45 minutes Visit Charges OBSV E&M: [id number] Initial observation care L3
--- NOTE | 2022-05-15 17:41 | MRI_ITS ---
STUDY: MRI LUMBAR SPINE WITHOUT CONTRAST REASON FOR EXAM: Female, 72 years old. radicular leg pain TECHNIQUE: Standardized fat and water weighted pulse sequences were obtained in the sagittal and axial planes. COMPARISON: None FINDINGS: Moderate dextroconvex scoliosis. T12-L1: Normal endplates. Normal disc height, hydration and morphology. Normal bilateral facet joints. Normal central canal and bilateral lateral recesses. Normal bilateral intervertebral neural foramina. Normal lumbar lordosis. Normal conus medullaris that terminates at the L1 level. L1-2: Spondylitic endplates. Normal disc height, hydration and morphology. Normal bilateral facet joints. Normal central canal and bilateral lateral recesses. Narrowed bilateral intervertebral neural foramina. L2-3: Spondylitic endplates. Normal disc height, hydration and morphology. Normal bilateral facet joints. Normal central canal and bilateral lateral recesses. Narrowed bilateral intervertebral neural foramina. L3-4: Moderately severe central and lateral intratrochanteric spinal stenosis due to hypertrophic facet disease. Severe narrowing of the neural foramina bilaterally. L4-5: Normal endplates. Normal disc height, hydration and morphology. Normal bilateral facet joints. Normal central canal and bilateral lateral recesses. Severe narrowing bilateral intervertebral neural foramina. L5-S1: Normal endplates. Normal disc height, hydration and morphology. Normal bilateral facet joints. Normal central canal and bilateral lateral recesses. Severe narrowing right intervertebral neural foramina. Normal visualized sacral ala. Normal visualized paraspinous soft tissue structures. MRI/Spine Lumbar (Routine) IMPRESSION: Moderate scoliosis. Multi level spinal stenosis as noted above especially at L3-4. Electronically Signed: Bethel Blanca MD at 21:20 EDT ,
[2022-05-15 18:03] VITALS: BP 159/82; PULSE 89; RESP 18; TEMP 38.3; O2SAT 98
[2022-05-15 18:29] VITALS: BMI 21.1
[2022-05-15] MEDS: LORazepam 2 MG/ML Syringe IV (18:47)
[2022-05-15] MEDS: Acetaminophen 325 MG Tablet 650 MG PO (18:47)
[2022-05-15] MEDS: 0.9% Saline Lock 10 ML Syringe IV ×2 (18:48→20:31)
[2022-05-15 18:55] VITALS: BP 159/99; PULSE 101; RESP 16; TEMP 38.4; O2SAT 95
--- NOTE | 2022-05-15 19:02 | NURSING ---
family in room on admission
--- NOTE | 2022-05-15 19:15 | NURSING ---
Pt in MRI.
[2022-05-15 19:16] VITALS: BP 146/68; PULSE 83; O2SAT 99
[2022-05-15 19:34] VITALS: BP 144/62; PULSE 95; O2SAT 97
[2022-05-15] MEDS: 0.9% Normal Saline 1,000 ML 75 ML IV (20:30)
[2022-05-15] MEDS: dexAMETHasone 4 MG/ML Vial IV (20:31)
[2022-05-15] MEDS: Enoxaparin 40 MG/0.4 ML Syringe SC (20:31)
[2022-05-15] MEDS: Lisinopril 20 MG Tablet PO (20:32)
[2022-05-15] MEDS: Gabapentin 300 MG Capsule PO (20:32)
[2022-05-16] VITALS (8 sets, daily range): BP systolic 112–162; BP diastolic 63–92; PULSE 68–90; RESP 18; TEMP 36.4–37.1; O2SAT 94–100
[2022-05-16] MEDS: Morphine 4 MG/ML Syringe IV ×2 (03:42→08:29)
[2022-05-16] MEDS: dexAMETHasone 4 MG/ML Vial IV ×3 (05:07→20:57)
[2022-05-16] MEDS: Acetaminophen 325 MG Tablet 650 MG PO ×2 (06:01→20:57)
[2022-05-16] MEDS: Ondansetron 4 MG/2 ML Vial IV (06:05)
[2022-05-16] MEDS: Enoxaparin 40 MG/0.4 ML Syringe SC (08:28)
--- NOTE | 2022-05-16 10:29 | PCM.PN.HOSP ---
Documented by User: Sandra Lim NP, SANDSTONE INSPECTOR REPAIRER-C 05/16/22 10:41 Subjective Subjective Patient reports fatigue. Ongoing weakness, back pain. Denies shortness of breath. Denies fever. Patient has not been hypoxic. Objective Data Objective Data Vital Signs: Vital Signs Temp Pulse Resp BP Pulse Ox O2 Del Method O2 Flow Rate 98.3 F 71 18 118/74 100 Nasal Cannula 2 05/16/22 08:40 05/16/22 08:40 05/16/22 08:40 05/16/22 08:40 05/16/22 08:40 05/16/22 08:40 05/16/22 08:40 Oxygen Flow Rate (L/min) 2 Oxygen Delivery Method Nasal Cannula Weight: 119 lb 3.2 oz Body Mass Index (BMI) 21.1 Intake & Output: Intake and Output for Last 24 Hours 05/14/22 05/15/22 05/16/22 23:59 23:59 23:59 Intake Total 655 / 655 448.75 / 448.75 Output Total 750 / 750 Balance 655 / 655 -301.25 / -301.25 Lab / Micro Data Result Diagrams: 05/15/22 14:49 05/15/22 14:49 Labs: Laboratory Results - last 24 hr 05/15/22 14:49: WBC 7.2, RBC 4.99, Hgb 14.5, Hct 45.5, MCV 91.2, MCH 29.1, MCHC 31.9 L, RDW Std Deviation 45.3 H, RDW Coeff of Brady 13.5, Plt Count 165, MPV 9.9, Immature Gran % (Auto) 0.300, Neut % (Auto) 81.7 H, Lymph % (Auto) 8.3 L, [place] % (Auto) 9.4, Eos % (Auto) 0.0, Baso % (Auto) 0.3, Absolute Neuts (auto) 5.9, Absolute Lymphs (auto) 0.60 L, Nucleated RBC % 0, Differential Comment SEE COMMENT, Platelet Estimate ADEQUATE, RBC Morphology N CHROM, Anisocytosis RARE, Macrocytosis RARE 05/15/22 14:49: Sodium 140, Potassium 4.4, Chloride 107, Carbon Dioxide 29.0, Anion Gap 4 L, BUN 14, Creatinine 1.15 H, Estim Creat Clear Calc 35.50, Est GFR (MDRD) Af Amer 59 L, Est GFR (MDRD) Non-Af 49 L, BUN/Creatinine Ratio 12.2, Glucose 101, Calcium 9.0 05/15/22 15:30: Urine Color Yellow, Urine Clarity Clear, Urine pH 7.0, Ur Specific [place] 1.010, Urine Protein 15 H, Urine Glucose (UA) Normal, Urine Ketones 5 H, Urine Occult Blood 10 H, Urine Nitrite Negative, Urine Bilirubin Negative, Urine Urobilinogen 1 H, Ur Leukocyte Esterase Negative, Urine RBC 5-10 SEEN, Urine WBC 0 SEEN, Ur Squamous Epith Cells 0 SEEN, Urine Bacteria 1+, Urine Mucus 0 SEEN Micro: Microbiology 05/15/22 15:39 Nasal Secretion SARS-CoV-2 Antigen (Rapid) - Final SARS-CoV-2 (COVID 19) Radiography Diagnostic Testing: Radiology Impression Chest X-Ray 05/15/22 14:59 IMPRESSION: No acute cardiopulmonary process identified. Electronically Signed: Lise Carvalho MD at 15:14 EDT , Lumbar Spine MRI 05/15/22 17:41 IMPRESSION: Moderate scoliosis. Multi level spinal stenosis as noted above especially at L3-4. Electronically Signed: Bethel Blanca MD at 21:20 EDT , Physical Exam Const alert, oriented x3 and no apparent distress Nutritional Appearance: cachectic HEENT normocephalic Mouth: dry mucous membranes Eyes PERRL, EOMs intact bilaterally and conjunctivae normal Neck no lymphadenopathy Resp normal respiratory effort and clear to auscultation bilaterally Cardio regular rate, regular rhythm and no murmurs Peripheral Pulses: pulses 2+ throughout GI normal to inspection, nondistended, normoactive bowel sounds, non-tender and non-distended Extremity normal to inspection Skin no rashes or lesions noted Lesions: no lesions Rashes: no rashes Trauma: no lacerations or abrasions Neuro CN's II-XII intact bilaterally, no focal motor deficits, no sensory deficits noted and deep tendon reflexes 2+ bilaterally Psych Mood & Affect: flat affect Assessment & Plan Assessment/Plan (1) Acute exacerbation of chronic low back pain: PLAN: Plan 1.? Acute intractable back pain, history of chronic back pain-PT/OT.? IV Decadron.? MRI of lumbar spine shows moderate scoliosis, multilevel spinal stenosis especially at L3-4.? Continue home gabapentin regimen. PRN pain regimen. Social work consult for discharge planning. Likely will need placement. 2.? [id number] stable.? Chest x-ray unremarkable.? Maintain precautions per protocol.? Unvaccinated.? Symptom onset 05/15/2022. 3.? Parkinson's disease-follows with neurology.? Continue home medication regimen. 4.? Hypertension-stable, continue lisinopril. 5.? Chronic kidney disease stage IIIa-at baseline. DVT prophylaxis-Lovenox sc This patient was seen by Sandra Lim, KATHERINE-C under the supervision of Dr. Acosta. Time spent examining patient, reviewing data and subsequent management of care: 12 minutes Documented by User: Dr. Gavino Acosta, 05/16/22 11:31 Objective Data Lab / Micro Data Result Diagrams: 05/15/22 14:49 05/15/22 14:49 Assessment & Plan Assessment/Plan (1) Acute exacerbation of chronic low back pain: Charges/Coding Addendum Addendum: Patient seen and examined independently of Sandra Lim, she is resting quietly this morning, her MRI of her lumbar spine shows spinal stenosis, there is no evidence of any acute disc rupture. I talked briefly with patient's daughter by phone today. Patient was placed on oxygen last night for comfort by the retail shift supervisor, she did not actually require the oxygen however as her pulse ox was not below 90. On examination she appeared older than her stated age and frail, she does not appear to be in any distress. Vital signs as documented. Skin warm and dry and without overt rashes. Neck without JVD, thyroid appears normal, trachea is midline, neck is supple. Lungs clear, normal air movement was noted. Heart exam notable for regular rhythm, normal sounds and absence of murmurs, rubs or gallops. Abdomen unremarkable and without evidence of organomegaly, masses, or abdominal aortic enlargement, bowel sounds are present in all 4 quadrants, no abdominal tenderness was noted. Extremities nonedematous, no cyanosis was noted, no clubbing was noted. Neuro: Cranial nerves II through XII are grossly intact, no focal motor deficits were noted, sensation to light touch and pinprick is intact, motor exam 5/5 throughout. Psych: Patient is alert and oriented x3, she does not appear anxious or depressed, she does not appear agitated. Impression:#1 bilateral radicular leg pain-probably secondary to spinal stenosis-continue IV Decadron, PT and OT are seeing the patient, it is possible patient may need placement in a [facility] facility for short-term rehab services, this will be difficult due to her COVID positivity. #2 COVID-19 infection without hypoxia and pneumonia-patient will be placed on IV Decadron, she is not a candidate for remdesivir #3 Parkinson's disease-patient will remain on her current medications #4 essential hypertension-patient will be maintained on her home medications #5 hyperlipidemia-patient will remain on her home medication I have reviewed Sandra Raphael's progress note including her medical assessment and plan of care and endorse it. Total clinical time spent by myself addressing the patient's medical issues, reviewing the data, and collaborating with the patient's care team: 25 minutes Visit Charges OBSV E&M: [id number] Subsequent observation care L3
[2022-05-16] MEDS: oxyCODONE 5 MG Tablet PO ×2 (11:00→20:57)
[2022-05-16] MEDS: Polyethylene Glycol 3350 17 GM PACKET PO (11:00)
[2022-05-16] MEDS: Amantadine 100 MG Capsule PO (11:01)
[2022-05-16] MEDS: 0.9% Saline Lock 10 ML Syringe IV ×2 (14:21→20:58)
--- NOTE | 2022-05-16 14:50 | CASEMGMT ---
Per nurses notes, pt is only alert to self at this time. Attempt to call daughter to complete JACOB with her at this time without success, message left for her to call this RN CM back. SStaten RN CM
--- NOTE | 2022-05-16 17:14 | CASEMGMT ---
Social Work Note SW updated that pt will likely need SNF at discharge. SW reviewed chart, pt was alert and orientated x1 earlier. SW spoke with RN. Pt is much more alert now. Pt has very long toenails and RN doesn't think pt is eating well at home. SW attempted to call pt, no answer. SW also called pt's daughter Terra to attempt to discuss discharge plans and there was no answer, SW left message. SW to continue to follow. Cheyanne Vergara OFFSET PRESS ASSISTANT, LUNCHROOM MONITOR
--- NOTE | 2022-05-16 17:48 | CASEMGMT ---
Social Work Assessment SW in to complete initial assessment. SW introduced self and role at [facility]. Pt is alert and orientated, engages appropriately in conversation. Living Arrangements: Pt states that she lives with her granddaughter in a one story home. Pt states she has no steps to enter the home. DME: Pt states that she has a cane and walker and states that she uses the devices to ambulate. Pt states that she does not normally wear oxygen at discharge. SW informed pt that she will get tested to see if she qualifiers for home Oxygen before she discharges. Pt states understanding. ADLs: Pt states that she needs assistance and her granddaughter is able to provide assistance. PCP: Pt states that she has one but cannot remember the name. Pt states that it is who took over for Dr. Corley. Pharmacy: [facility] Advanced Directives: Pt states that she has completed both HCPOA and LW. Pt states that her HCPOA is her oldest daughter Terra. Supports: Pt states that Terra is good support for her and calls in daily to check in with her. As noted above, pt lives with her granddaughter who assists her. Substance Use: Pt denied Mental Health: Pt denied HHC: Pt denied SNF: Pt denied Pt states that she feels safe at home and states that she gets taken care of well. Pt states that she has food available to eat when she wants it. Pt states she bathes every other day. SW spoke with pt about discharge plans. SW spoke with pt about how recommendation is SNF placement for short term rehab. Pt states she is not going to a SNF and will be going home as her granddaughter can assist her. SW informed pt that it depends on PT/OT recommendations and if they feel pt can return home safely or not. Pt states that her mother was at [facility] and she there. Pt states that it will be safe for her to return home. Patient was provided a list of SNF providers including quality and resource use data and consistent with the patient?s preferred geographic region, medical needs, and insurance network. SW informed pt that SW will speak with pt Wednesday to determine how she is doing and determine a discharge plan. Pt states understanding. SW asked pt if it was ok to also speak with Terra and pt gives permission to do so. SW has a call out to Terra, waiting for call back. Plan: TBD. Pt wishes to discharge home. Will need to monitor PT/OT and Oxygen. Cheyanne Vergara TRANSMISSION MECHANIC, TRANSMITTER SUPERVISOR
[2022-05-16] MEDS: Lisinopril 20 MG Tablet PO (20:57)
[2022-05-16] MEDS: Gabapentin 300 MG Capsule PO (20:57)
[2022-05-17 03:40] VITALS: BP 117/71; PULSE 71; RESP 16; TEMP 37.1; O2SAT 94
[2022-05-17] MEDS: 0.9% Saline Lock 10 ML Syringe IV ×2 (05:01→14:27)
[2022-05-17] MEDS: dexAMETHasone 4 MG/ML Vial IV ×3 (05:02→21:50)
[2022-05-17 07:59] VITALS: O2SAT 94
[2022-05-17] MEDS: Acetaminophen 325 MG Tablet 650 MG PO (08:55)
[2022-05-17] MEDS: oxyCODONE 5 MG Tablet PO ×2 (08:56→21:50)
[2022-05-17 09:00] VITALS: RESP 18
[2022-05-17] MEDS: Amantadine 100 MG Capsule PO (09:00)
[2022-05-17] MEDS: Enoxaparin 40 MG/0.4 ML Syringe SC (09:00)
[2022-05-17] MEDS: Polyethylene Glycol 3350 17 GM PACKET PO (09:00)
[2022-05-17 09:40] VITALS: BP 136/79; PULSE 83; RESP 18; TEMP 37.3; O2SAT 95
--- NOTE | 2022-05-17 11:35 | PN.HOSP_ITS ---
Documented by User: Sandra Lim NP, BROACH GRINDER-C 05/17/22 11:40 Subjective Subjective Patient seen and examined. Sitting in chair eating breakfast. Reports continued pain down both legs. Reports generalized weakness. Denies shortness of breath, cough. Intermittent low-grade fever. Objective Data Objective Data Vital Signs: Vital Signs Temp Pulse Resp BP Pulse Ox O2 Del Method O2 Flow Rate 99.2 F H 83 18 136/79 H 95 Room Air 3 05/17/22 09:40 05/17/22 09:40 05/17/22 09:40 05/17/22 09:40 05/17/22 09:40 05/17/22 09:40 05/16/22 13:54 Oxygen Flow Rate (L/min) 3 Oxygen Delivery Method Room Air Weight: 119 lb 4.321 oz Body Mass Index (BMI) 21.1 Intake & Output: Intake and Output for Last 24 Hours 05/15/22 05/16/22 05/17/22 23:59 23:59 23:59 Intake Total 655 / 655 2785.00 / 2785.00 120 / 120 Output Total 2400 / 2400 400 / 400 Balance 655 / 655 385.00 / 385.00 -280 / -280 Lab / Micro Data Result Diagrams: 05/15/22 14:49 05/15/22 14:49 Micro: Microbiology 05/15/22 15:39 Nasal Secretion SARS-CoV-2 Antigen (Rapid) - Final SARS-CoV-2 (COVID 19) Physical Exam Const alert and oriented x3 Constitutional Narrative: Bilateral upper extremity tremors Nutritional Appearance: cachectic HEENT normocephalic and moist oral mucous membranes Eyes PERRL, EOMs intact bilaterally and conjunctivae normal Neck no lymphadenopathy Resp normal respiratory effort and clear to auscultation bilaterally Cardio regular rate, regular rhythm and no murmurs Peripheral Pulses: pulses 2+ throughout GI normal to inspection, nondistended, normoactive bowel sounds, non-tender and non-distended Extremity normal to inspection Skin no rashes or lesions noted Lesions: no lesions Rashes: no rashes Trauma: no lacerations or abrasions Neuro CN's II-XII intact bilaterally, no focal motor deficits, no sensory deficits not ed and deep tendon reflexes 2+ bilaterally Psych mental status grossly normal and affect normal Assessment & Plan Assessment/Plan (1) Lumbar radiculopathy: PLAN: Plan 1.? Acute intractable back pain, history of chronic back pain-PT/OT.? IV Decadron.? MRI of lumbar spine shows moderate scoliosis, multilevel spinal stenosis especially at L3-4.? Continue home gabapentin regimen. PRN pain regimen.? Social work consult for discharge planning.? Likely will need placement. 2.? [id number] stable on RA.? Chest x-ray unremarkable.? Maintain precautions per protocol.? Unvaccinated.? Symptom onset 05/15/2022. 3.? Parkinson's disease-follows with neurology.? Continue home medication regimen. 4.? Hypertension-stable, continue lisinopril. 5.? Chronic kidney disease stage IIIa-at baseline. DVT prophylaxis-Lovenox sc This patient was seen by JORDON Curry under the supervision of Dr. Acosta. Discharge planning: SNF pending acceptance. Time spent examining patient, reviewing data and subsequent management of care: 12 minutes Documented by User: Dr. Gavino Acosta, 05/17/22 14:53 Objective Data Lab / Micro Data Result Diagrams: 05/15/22 14:49 05/15/22 14:49 Assessment & Plan Assessment/Plan (1) Lumbar radiculopathy: Charges/Coding Addendum Addendum: Patient was seen and examined today independently of Sandra Lim, she is no longer on any oxygen, however remdesivir was stopped. Patient states she feels somewhat better. I believe that we should continue the IV Decadron at this time at least from 1 more day. Patient will most probably need placement in a detention facility for short-term rehab services. On examination she appeared older than her stated age and frail, she does not appear to be in any distress. Vital signs as documented. Skin warm and dry and without overt rashes. Neck without JVD, thyroid appears normal, trachea is midline, neck is supple. Lungs clear, normal air movement was noted. Heart exam notable for regular rhythm, normal sounds and absence of murmurs, rubs or gallops. Abdomen unremarkable and without evidence of organomegaly, masses, or abdominal aortic enlargement, bowel sounds are present in all 4 quadrants, no abdominal tenderness was noted. Extremities nonedematous, no cyanosis was noted, no clubbing was noted.? Neuro: Cranial nerves II through XII are grossly intact, no focal motor deficits were noted, sensation to light touch and pinprick is intact, motor exam 5/5 throughout.? Psych: Patient is alert and oriented x3, she does not appear anxious or depressed, she does not appear agitated. #1 bilateral radicular leg pain-probably secondary to spinal stenosis-continue IV Decadron, PT and OT are seeing the patient, it is possible patient may need placement in a detention facility for short-term rehab services, this will be difficult due to her COVID positivity. fast food services manager tomorrow can start looking for a place for the patient to go after she is discharged here #2 COVID-19 infection without hypoxia and pneumonia-patient is not a candidate for remdesivir, she will remain on IV Decadron for her radicular leg pain #3 Parkinson's disease-patient will remain on her current medications #4 essential hypertension-patient will be maintained on her home medications #5 hyperlipidemia-patient will remain on her home medication I have reviewed Sandra Lim's progress note including her medical assessment and plan of care and with the above additions endorse it. Total clinical time spent by myself addressing patient's medical issues, reviewing the data, and collaborating with patient's care team: 20 minutes Visit Charges OBSV E&M: 25481 Subsequent observation care L2
[2022-05-17 16:45] VITALS: BP 137/79; PULSE 70; RESP 16; TEMP 36.8; O2SAT 96
[2022-05-17] MEDS: Temazepam 15 MG Capsule PO (21:51)
[2022-05-17] MEDS: Gabapentin 300 MG Capsule PO (21:51)
[2022-05-17] MEDS: Lisinopril 20 MG Tablet PO (21:54)
[2022-05-17 22:22] VITALS: BP 130/86; PULSE 80; RESP 18; TEMP 37.5; O2SAT 95
[2022-05-18] VITALS (9 sets, daily range): BP systolic 117–153; BP diastolic 70–106; PULSE 56–97; RESP 16–20; TEMP 36.8–37.2; O2SAT 94–98
[2022-05-18] MEDS: 0.9% Saline Lock 10 ML Syringe IV ×2 (05:12→21:06)
[2022-05-18] MEDS: dexAMETHasone 4 MG/ML Vial IV ×3 (05:13→21:07)
[2022-05-18] MEDS: Enoxaparin 40 MG/0.4 ML Syringe SC (09:13)
[2022-05-18] MEDS: Amantadine 100 MG Capsule PO (09:14)
[2022-05-18] MEDS: Polyethylene Glycol 3350 17 GM PACKET PO (09:14)
--- NOTE | 2022-05-18 12:26 | CASEMGMT ---
Addendum entered by Evita Morales 05/18/22 13:51: TC to pt dtr, Terra Mccormick at [phone], explained JACOB form to dtr. She verbalizes understanding and denies questions. Verified by SW as well. JACOB form filed in pt chart. Original Note: RAUL SNOW attempted to discuss and complete JACOB form with patient. Pt does not understand JACOB form after explanation. She asks this RN CM to call her dtr Terra to discuss. 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 RAUL SNOW to do so.
--- NOTE | 2022-05-18 12:40 | PCM.PN.HOSP ---
Documented by User: Sandra Lim NP, PSYCHOLOGIST CLINICAL-C 05/18/22 12:52 Subjective Subjective Patient seen and examined. Continues to have low-grade fever. Denies shortness of breath. Back pain slightly improved. Remains generally weak. Objective Data Objective Data Vital Signs: Vital Signs Temp Pulse Resp BP Pulse Ox O2 Del Method O2 Flow Rate 98.4 F 84 18 134/76 H 95 Room Air 3 05/18/22 08:55 05/18/22 11:14 05/18/22 08:55 05/18/22 08:55 05/18/22 11:14 05/18/22 11:14 05/16/22 13:54 Oxygen Flow Rate (L/min) 3 Oxygen Delivery Method Room Air Weight: 119 lb 4.321 oz Body Mass Index (BMI) 21.1 Intake & Output: Intake and Output for Last 24 Hours 05/16/22 05/17/22 05/18/22 23:59 23:59 23:59 Intake Total 2785.00 / 2785.00 120 / 120 Output Total 2400 / 2400 2074 / 2074 825 / 825 Balance 385.00 / 385.00 -1955 / -1955 -825 / -825 Lab / Micro Data Result Diagrams: 05/15/22 14:49 05/15/22 14:49 Micro: Microbiology 05/15/22 15:39 Nasal Secretion SARS-CoV-2 Antigen (Rapid) - Final SARS-CoV-2 (COVID 19) Physical Exam Const alert and oriented x3 Constitutional Narrative: Upper extremity tremors Nutritional Appearance: cachectic HEENT normocephalic Mouth: dry mucous membranes Eyes PERRL, EOMs intact bilaterally and conjunctivae normal Neck no lymphadenopathy Resp normal respiratory effort and clear to auscultation bilaterally Cardio regular rate, regular rhythm and no murmurs Peripheral Pulses: pulses 2+ throughout GI normal to inspection, nondistended, normoactive bowel sounds, non-tender and non-distended Extremity normal to inspection Skin no rashes or lesions noted Lesions: no lesions Rashes: no rashes Trauma: no lacerations or abrasions Neuro CN's II-XII intact bilaterally, no focal motor deficits, no sensory deficits noted and deep tendon reflexes 2+ bilaterally Psych mental status grossly normal and affect normal Assessment & Plan Assessment/Plan (1) Intractable abdominal pain: PLAN: Plan 1.? Acute intractable back pain, history of chronic back pain-PT/OT.? IV Decadron.? MRI of lumbar spine shows moderate scoliosis, multilevel spinal stenosis especially at L3-4.? Continue home gabapentin regimen. PRN pain regimen.? Social work consult for discharge planning.? Likely will need placement. 2.? [id number] stable on RA.? Chest x-ray unremarkable.? Maintain precautions per protocol.? Unvaccinated.? Symptom onset 05/15/2022. 3.? Parkinson's disease-follows with neurology.? Continue home medication regimen. 4.? Hypertension-stable, continue lisinopril. 5.? Chronic kidney disease stage IIIa-at baseline. DVT prophylaxis-Lovenox sc This patient was seen by JORDON Curry under the supervision of Dr. Downey. Discharge planning: SNF pending acceptance. Time spent examining patient, reviewing data and subsequent management of care: 12 minutes Documented by User: Dr. Garrett Downey MD 05/18/22 13:41 Objective Data Lab / Micro Data Result Diagrams: 05/15/22 14:49 05/15/22 14:49 Assessment & Plan Assessment/Plan (1) Intractable abdominal pain: Charges/Coding Addendum Addendum: And addendum: Dr. Downey I personally examined the patient and reviewed the chart. I agree with the above. 72-year-old female who presents to the hospital with lower back pain, she had an MRI of her lumbar spine which demonstrated moderate scoliosis with multilevel spinal stenosis more pronounced at L3-4. She was started on an Decadron which seems to have alleviated some of her pain. She was also incidentally found to have COVID, she denies any symptoms is on any oxygen therefore she is not receiving any directed therapy at this time. Unfortunate she is unvaccinated so we will continue to monitor. Currently awaiting pre-CERT for SNF placement to receive therapy for her back. Clinical time spent in all aspects of patient care: 18 minutes Visit Charges OBSV E&M: 53684 Subsequent observation care L2
--- NOTE | 2022-05-18 14:29 | CASEMGMT ---
Social Work SW met with pt to discuss discharge plan. Pt states that she realizes she is weak and would benefit from short term SNF. SW explained to pt that because of Covid positive, SNF options are limited. SW explained that [facility] is the only facility in [place] that is accepting covid patients. Pt states her brother at [place] and she does not think she would like to go there but ask SW to contact her daughter Terra. Phone call to Terra and SW explained how pt did with therapy and discussed conversation with pt regarding SNF. Terra feels pt would benefit from SNF, but is not agreeable for pt to go to [facility] due to uncle dying there and Medicare 1 star rating. Terra is agreeable to other referrals but SW did notify that there is very limited options due to the Covid. SW placed call to [facility] and they do accept Covid patients and would review referral. Pt's daughter to be updated. JEFF Page
--- NOTE | 2022-05-18 14:45 | CASEMGMT ---
Addendum entered by Evita Morales 05/18/22 15:13: 1445- The following facilities were contacted to verify acceptance of covid positive patients in [facility]: Ronald Pettit, Katie Garcia, [facility] in [place], [facility], [facility], [facility], [facility]. Also Fatuma Rhodes in [place] was contacted. The following facilities accept COVID positive patients: [facility] and [facility] in [place]. Addendum entered by Evita Morales 05/18/22 15:01: TC back to pt dtr Terra, she states she and her mother are fine with a referral being to [facility] knowing she can visit daily. She is aware that this referral will be made today. She denies further questions. Original Note: TC to pt dtr to make aware of facilities that are accepting COVID positive patients. 1. [facility] 2.[facility] in [place]. She states that both of these facilities are too far. She will call her mother to discuss [facility]. She asks if she can visit daily. Made her aware this RN CM will call to verify. She asks for RN CM to call her back in 10 minutes or so. TC to [facility], verified that covid patients are able to have visitors.
--- NOTE | 2022-05-18 15:13 | CASEMGMT ---
Social Work Per Evita RNCM, pt dgt is agreeable to [facility] for skilled stay. left with Nilsa at [facility] and email sent informing of referral. Clinicals faxed and will await determination of acceptance. Plan: [facility], pending acceptance JEFF Page
[2022-05-18] MEDS: oxyCODONE 5 MG Tablet PO (17:43)
[2022-05-18] MEDS: Gabapentin 300 MG Capsule PO (21:07)
[2022-05-18] MEDS: Lisinopril 20 MG Tablet PO (21:07)
[2022-05-19 03:33] VITALS: BP 147/80; PULSE 60; RESP 18; TEMP 36.9; O2SAT 96
[2022-05-19 07:44] VITALS: BP 167/82; PULSE 60; RESP 18; TEMP 37.2; O2SAT 98
[2022-05-19] MEDS: Acetaminophen 325 MG Tablet 650 MG PO (07:54)
[2022-05-19 08:00] VITALS: O2SAT 98
--- NOTE | 2022-05-19 08:47 | PCM.TXEXTCAR ---
Diet Diet Order/Speech Therapy: 05/15/22 17:43 Diet: Regular - General Food consistency:: Regular Liquid Consistency:: Regular/Thin Type of Dietary Supplement:: Ensure Enlive Diet Comments: 120ml ensure enlive TID w/ meals Routine Orders/Code Status Enema Type: Fleetz Enema Frequency: Daily PRN Suppository Type: Dulcolax 10mg Suppository Frequency: Daily PRN Code Status: DNRCC-A (no intubation) Suggestions for Active Care Change Position every (hours): 2 Times a day to sit in chair: 3 Therapies Physical Therapy: Eval and Treat Occupational Therapy: Eval and Treat Problem/Diagnosis (1) Intractable abdominal pain: Status: Acute Code(s): R10.9 - Unspecified abdominal pain Plan 1.? Acute intractable back pain, history of chronic back pain-PT/OT.? IV Decadron during admission.? MRI of lumbar spine shows moderate scoliosis, multilevel spinal stenosis especially at L3-4.? Continue home gabapentin regimen. PRN pain regimen.? SNF for further therapy. Referral to orthospine as outpatient. 2.? [id number] stable on RA.? Chest x-ray unremarkable.? Maintain precautions per protocol.? Unvaccinated.? Symptom onset 05/15/2022. Quarantine for 7 days through 05/23/22. 3.? Parkinson's disease-follows with neurology.? Continue home medication regimen. 4.? Hypertension-stable, continue lisinopril. 5.? Chronic kidney disease stage IIIa-at baseline. Allergies/Procedures Done in Hospital Allergies nitrofurantoin [From Macrobid] Allergy (Verified 05/15/22 14:05) Hives hydrocodone [From Vicodin] Adverse Reaction (Verified 05/15/22 14:05) Vomiting morphine Adverse Reaction (Verified 05/15/22 14:05) Vomiting pregabalin [From Lyrica] Adverse Reaction (Verified 05/15/22 14:05) Vomiting Procedures: None Type of Care/Length of Stay Estimated LOS: Convalescent Care Less Than 30 days Type of Care Needed: Skilled Rehab Potential: Fair Prognosis: Fair Additional Orders/Day of Discharge H&P will serve as current which was dated: 05/15/22 Day of Discharge: 05/19/22 Dietary and Speech Recommendations Dietitian Recommendations/Changes: Continue regular diet as ordered. Will add 120 ml ensure enlive TID w/ meals due to suspected inadequate oral intake/wt loss. Further probe timeframe of weight loss, oral intake adequacy and reassess for possible malnutrition as able to speak to patient. Discharge Plan Admission Admit Date/Time: 05/15/22 17:19 Primary Reason for Your Visit: back pain Attending Provider: Garrett Downey Primary Care Provider: Care Physician,No Primary Consulting Providers: Gavino Acosta Instructions Additional Instructions / Restrictions: Maintain COVID precautions through 05/23/2022 Discharge Orders/Prescriptions Prescriptions: New polyethylene glycol 3350 17 gram Powder In Packet 17 g PO DAILY Qty: 0 0RF oxycodone 5 mg Tablet 5 mg PO Q4H PRN PRN (Reason: Pain Score 6-10) 2 Days Qty: 5 0RF Continued gabapentin 100 mg capsule 300 mg PO BID amantadine HCl 100 mg capsule 100 mg PO DAILY Qty: 30 1RF lisinopril 20 MG tablet 20 mg PO QHS omeprazole 20 mg capsule,delayed release(DR/EC) 20 mg PO BID acetaminophen 500 MG tablet 500 - 1,000 mg PO Q6H PRN PRN (Reason: Pain 1-10 Or Fever) Referrals / Follow Up: Aashish Baez DO [Med Staff - Active Staff] - Within 2 Weeks Care Physician,No Primary [Primary Care Provider] - In 1 Week Disposition Disposition (needs filled in before D/C Order can be placed): Custodial Facility
--- NOTE | 2022-05-19 08:58 | DS.PCM_ITS ---
Documented by User: Sandra Lim NP, [employer] INST[employer]ER-C 05/19/22 09:01 Providers Date of Admission: 05/15/22 Date of Discharge: 05/19/22 Primary Care Physician: No Primary Care Phys Reason For Visit: LOW BACK PAIN, COVID 19 Diagnosis Discharge Diagnosis (1) Intractable abdominal pain: Status: Acute Code(s): R10.9 - Unspecified abdominal pain Plan 1.? Acute intractable back pain, history of chronic back pain-PT/OT.? IV Decadron during admission.? MRI of lumbar spine shows moderate scoliosis, multilevel spinal stenosis especially at L3-4.? Continue home gabapentin regimen. PRN pain regimen.? SNF for further therapy. Referral to orthospine as outpatient. 2.? [id number] stable on RA.? Chest x-ray unremarkable.? Maintain precautions per protocol.? Unvaccinated.? Symptom onset 05/15/2022. Quarantine for 7 days through 05/23/22. 3.? Parkinson's disease-follows with neurology.? Continue home medication regimen. 4.? Hypertension-stable, continue lisinopril. 5.? Chronic kidney disease stage IIIa-at baseline. Medications at Discharge Home Medications lisinopril 20 mg tablet 20 mg PO QHS blood pressure 04/09/17 omeprazole 20 mg capsule,delayed release 20 mg PO BID GERD 09/09/20 gabapentin 100 mg capsule 300 mg PO BID 10/15/20 acetaminophen 500 mg tablet 500 - 1,000 mg PO Q6H PRN PRN Pain 1-10 Or Fever 01/10/21 amantadine HCl 100 mg capsule 100 mg PO DAILY #30 caps 04/14/21 oxycodone 5 mg tablet 5 mg PO Q4H PRN PRN Pain Score 6-10 2 days #5 tabs 05/19/22 polyethylene glycol 3350 17 gram oral powder packet 17 g PO DAILY #0 ea 05/19/22 Hospital Course Operations None Procedures None Summary of Care Provided Hospital Course: Patient is a 72-year-old female admitted 05/15/2022 due to worsening back pain and debility. 1.? Acute intractable back pain, history of chronic back pain-PT/OT.? IV Decadron during admission.? MRI of lumbar spine shows moderate scoliosis, multilevel spinal stenosis especially at L3-4.? Continue home gabapentin regimen. PRN pain regimen.? SNF for ongoing rehab. Referral to orthospine. Follow-up with PCP in 1 week. 2.? [id number] stable on RA.? Chest x-ray unremarkable.? Maintain precautions per protocol.? Unvaccinated.? Symptom onset 05/15/2022. 3.? Parkinson's disease-follows with neurology.? Continue home medication regimen. 4.? Hypertension-stable, continue lisinopril. 5.? Chronic kidney disease stage IIIa-at baseline. Physical Exam Const alert and oriented x3 Constitutional Narrative: Upper extremity tremors Nutritional Appearance: cachectic HEENT normocephalic Mouth: dry mucous membranes Eyes PERRL, EOMs intact bilaterally and conjunctivae normal Neck no lymphadenopathy Resp normal respiratory effort and clear to auscultation bilaterally Cardio regular rate, regular rhythm and no murmurs Peripheral Pulses: pulses 2+ throughout GI normal to inspection, nondistended, normoactive bowel sounds, non-tender and non-distended Extremity normal to inspection Skin no rashes or lesions noted Lesions: no lesions Rashes: no rashes Trauma: no lacerations or abrasions Neuro CN's II-XII intact bilaterally, no focal motor deficits, no sensory deficits noted and deep tendon reflexes 2+ bilaterally Psych mental status grossly normal and affect normal This patient was seen by JORDON Curry under the supervision of Dr. Downey. Time spent examining patient, reviewing data and subsequent management of care: 25 minutes Weight / BMI Weight Weight: 119 lb 4.321 oz Body Mass Index (BMI) 21.1 ABG / Lab / Microbiology Data Result Diagrams: 05/15/22 14:49 05/15/22 14:49 Microbiology: Microbiology 05/15/22 15:39 Nasal Secretion SARS-CoV-2 Antigen (Rapid) - Final SARS-CoV-2 (COVID 19) Meaningful Use Info Meaningful Use Diagnoses (Choose all that apply): None applicable Discharge Plan Admission Admit Date/Time: 05/15/22 17:19 Primary Reason for Your Visit: back pain Attending Provider: Garrett Downey Primary Care Provider: Care Physician,No Primary Consulting Providers: Gavino Acosta Instructions Additional Instructions / Restrictions: Maintain COVID precautions through 05/23/2022 Discharge Orders/Prescriptions Prescriptions: New polyethylene glycol 3350 17 gram Powder In Packet 17 g PO DAILY Qty: 0 0RF oxycodone 5 mg Tablet 5 mg PO Q4H PRN PRN (Reason: Pain Score 6-10) 2 Days Qty: 5 0RF Continued gabapentin 100 mg capsule 300 mg PO BID amantadine HCl 100 mg capsule 100 mg PO DAILY Qty: 30 1RF lisinopril 20 MG tablet 20 mg PO QHS omeprazole 20 mg capsule,delayed release(DR/EC) 20 mg PO BID acetaminophen 500 MG tablet 500 - 1,000 mg PO Q6H PRN PRN (Reason: Pain 1-10 Or Fever) Referrals / Follow Up: Aashish Baez DO [Med Staff - Active Staff] - Within 2 Weeks Care Physician,No Primary [Primary Care Provider] - In 1 Week Disposition Disposition (needs filled in before D/C Order can be placed): [facility] Facility Documented by User: Dr. Garrett Downey MD 05/19/22 10:17 Providers Date of Admission: 05/15/22 Reason For Visit: LOW BACK PAIN, COVID 19 Diagnosis Discharge Diagnosis (1) Intractable abdominal pain: Status: Acute Code(s): R10.9 - Unspecified abdominal pain Medications at Discharge Home Medications lisinopril 20 mg tablet 20 mg PO QHS blood pressure 04/09/17 omeprazole 20 mg capsule,delayed release 20 mg PO BID GERD 09/09/20 gabapentin 100 mg capsule 300 mg PO BID 10/15/20 acetaminophen 500 mg tablet 500 - 1,000 mg PO Q6H PRN PRN Pain 1-10 Or Fever 01/10/21 amantadine HCl 100 mg capsule 100 mg PO DAILY #30 caps 04/14/21 oxycodone 5 mg tablet 5 mg PO Q4H PRN PRN Pain Score 6-10 2 days #5 tabs 05/19/22 polyethylene glycol 3350 17 gram oral powder packet 17 g PO DAILY #0 ea 05/19/22 ABG / Lab / Microbiology Data Result Diagrams: 05/15/22 14:49 05/15/22 14:49 Discharge Plan Admission Admit Date/Time: 05/15/22 17:19 Primary Reason for Your Visit: back pain Attending Provider: Garrett Downey Primary Care Provider: Care Physician,No Primary Consulting Providers: Gavino Acosta Instructions Additional Instructions / Restrictions: Maintain COVID precautions through 05/23/2022 Discharge Orders/Prescriptions Prescriptions: New polyethylene glycol 3350 17 gram Powder In Packet 17 g PO DAILY Qty: 0 0RF oxycodone 5 mg Tablet 5 mg PO Q4H PRN PRN (Reason: Pain Score 6-10) 2 Days Qty: 5 0RF Continued gabapentin 100 mg capsule 300 mg PO BID amantadine HCl 100 mg capsule 100 mg PO DAILY Qty: 30 1RF lisinopril 20 MG tablet 20 mg PO QHS omeprazole 20 mg capsule,delayed release(DR/EC) 20 mg PO BID acetaminophen 500 MG tablet 500 - 1,000 mg PO Q6H PRN PRN (Reason: Pain 1-10 Or Fever) Referrals / Follow Up: Aashish Baez DO [Med Staff - Active Staff] - Within 2 Weeks Care Physician,No Primary [Primary Care Provider] - In 1 Week Disposition Disposition (needs filled in before D/C Order can be placed): [facility] Facility Charges/Coding Addendum Addendum: Dr. Downey I personally examined the patient and reviewed the chart. I agree with the above.? 72-year-old female who presents to the hospital with lower back pain, she had an MRI of her lumbar spine which demonstrated moderate scoliosis with multilevel spinal stenosis more pronounced at L3-4.? She was started on an Decadron which seems to have alleviated some of her pain.? She was also incidentally found to have COVID, she denies any symptoms is on any oxygen therefore she is not receiving any directed therapy at this time.? Unfortunate she is unvaccinated so we will continue to monitor.? Currently awaiting pre-CERT for SNF placement to receive therapy for her back.? Clinical time spent in all aspects of patient care: 18 minutes 05/19/2022: Doing well today, still has back pain but denies any shortness of breath. I discussed with her the plan for discharge today she expressed understanding of the risk and benefits of going to the half-way and would like to go today. She did test positive for COVID however she is completely asymptomatic and still not requiring any oxygen therefore do not plan any outpatient treatment at this time. Clinical time spent on all aspects of patient care including discharge plannin minutes Visit Charges OBSV E&M: 86436 Observation care discharge
[2022-05-19] MEDS: Polyethylene Glycol 3350 17 GM PACKET PO (09:56)
[2022-05-19] MEDS: Enoxaparin 40 MG/0.4 ML Syringe SC (09:56)
[2022-05-19] MEDS: Amantadine 100 MG Capsule PO (09:57)
--- NOTE | 2022-05-19 10:53 | CASEMGMT ---
Social Work SW completed PASRR, faxed clinicals to Sudha at [facility].??SW called pt's daughter to set up a convenient transport time for her as she indicted she would like to accompany her mother to [facility] as she arrives there. Daughter stated noon would be a good time for her. SW set up wheelchair transportation through [facility] for 12:00pm and notified pt nurse of the transportation time. LEXUS called [facility] to inform the facility of pt's pending arrival.?Spoke with reading professor, Sandra Fonseca, who voiced understanding that pt would arrive shortly after noon today. JEFF Hunter
--- NOTE | 2022-05-19 11:26 | PHA.DC.MR ---
Pharmacy Service has performed discharge medication reconciliation for this patient. The patient's discharge medication list was reviewed for discrepancies and discrepancies were resolved. Home Medications lisinopril 20 mg tablet 20 mg PO QHS blood pressure 04/09/17 omeprazole 20 mg capsule,delayed release 20 mg PO BID GERD 09/09/20 gabapentin 100 mg capsule 300 mg PO BID 10/15/20 acetaminophen 500 mg tablet 500 - 1,000 mg PO Q6H PRN PRN Pain 1-10 Or Fever 01/10/21 amantadine HCl 100 mg capsule 100 mg PO DAILY #30 caps 04/14/21 oxycodone 5 mg tablet 5 mg PO Q4H PRN PRN Pain Score 6-10 2 days #5 tabs 05/19/22 polyethylene glycol 3350 17 gram oral powder packet 17 g PO DAILY #0 ea 05/19/22
[2022-05-19 11:33] VITALS: BP 145/79; PULSE 88; RESP 18; TEMP 37.1; O2SAT 96
== END 2022-05-19 13:32 | disposition skilled nursing facility (03) ==
LOC: ED 17:05 → MS3 17:26
PROVIDERS: Admitting Provider Internal Medicine; Emergency Provider Emergency Medicine; Visit Provider Family Medicine
DX: M48.061 Spinal stenosis, lumbar region without neurogenic claudication (principal); G20 Parkinson's disease; N18.31 Chronic kidney disease, stage 3a; U07.1 COVID-19; E78.5 Hyperlipidemia, unspecified; I12.9 Hypertensive chronic kidney disease with stage 1 through stage 4 chronic kidney disease, or unspecified chronic kidney disease; M79.7 Fibromyalgia; M41.9 Scoliosis, unspecified; R10.9 Unspecified abdominal pain; R53.81 Other malaise; M54.16 Radiculopathy, lumbar region; G89.29 Other chronic pain; Z79.899 Other long term (current) drug therapy; Z28.310 Unvaccinated for COVID-19; K21.9 Gastro-esophageal reflux disease without esophagitis
CPT/HCPCS: 71045; 72148; 80048; 81001; 85025; 87811; 96361; 96372; 96374; 96375; 96376; 97116; 97162; 97165; 97530; 99218; 99285; J7030; P9612; A4216; G0378; J2405

== ENCOUNTER 2022-09-01 23:45 | Observation (INO) | payer MEDICARE, BC, SELFPAY ==
[2022-09-01 23:49] VITALS: BP 182/80; PULSE 99; RESP 20; TEMP 36.4; O2SAT 96; BMI 24.5
[2022-09-02] VITALS (8 sets, daily range): BP systolic 121–155; BP diastolic 70–93; PULSE 75–94; RESP 15–18; TEMP 35.9–37.4; O2SAT 93–98; BMI 23.3
--- NOTE | 2022-09-02 00:12 | RAD_ITS ---
EXAM: XR RIGHT HIP WITH PELVIS WHEN PERFORMED, 2 OR 3 VIEWS CLINICAL INDICATION: pain TECHNIQUE: Two or three views of the right hip with pelvis when performed. This report was created using [employer] report generation technology. COMPARISON: None. FINDINGS: BONES/JOINTS: Unremarkable. No displaced fracture. No destructive or sclerotic lesions. Note that overlapping bowel shadows may however obscure fine detail. Sacroiliac joint is unremarkable. No widening of the pubic symphysis. The articular structures are unremarkable. SOFT TISSUES: Unremarkable. No soft tissue swelling or gas. RAD/HIP, UNI W/ Pelvis 2-3 Views IMPRESSION: No evidence of displaced pelvic or hip fracture. Electronically Signed: Rashard Lewis MD at 1:31 EST ,
--- NOTE | 2022-09-02 00:12 | RAD_ITS ---
EXAM: XR LUMBOSACRAL SPINE, 2 OR 3 VIEWS CLINICAL INDICATION: pain TECHNIQUE: Frontal and lateral views of the lumbar spine and sacrum. This report was created using [employer] report generation technology. COMPARISON: None. FINDINGS: VERTEBRAE: See below. DISC SPACES: Severe degenerative changes throughout the intervertebral discs, as well as dextrocurvature of the lumbar spine. GASTROINTESTINAL TRACT: Unremarkable as visualized. Included bowel gas pattern is non-obstructive. RAD/Lumbar Spine 2 or 3 Views IMPRESSION: Severe degenerative changes throughout the intervertebral discs, as well as dextrocurvature of the lumbar spine. No acute abnormalities identified. Electronically Signed: Rashard Lewis MD at 1:34 EST ,
--- NOTE | 2022-09-02 00:12 | CT_ITS ---
EXAM: CT CERVICAL SPINE WITHOUT INTRAVENOUS CONTRAST CLINICAL INDICATION: injury TECHNIQUE: Helically acquired images were obtained of the cervical spine without intravenous contrast. 2D reformatted images were reviewed. This CT exam was performed using one or more of the following dose reduction techniques: automated exposure control, adjustment of the mA and/or kV according to patient size, and/or use of iterative reconstruction technique. This report was created using [employer] report generation technology. COMPARISON: None. FINDINGS: VERTEBRAE: Unremarkable. No fracture. No traumatic subluxation. No discrete lytic or blastic abnormality. Normal alignment. Normal craniocervical junction and cervicothoracic junction. DISCS/SPINAL CANAL/NEURAL FORAMINA: Degenerative changes of the intervertebral discs. No critical stenosis. SOFT TISSUES: Unremarkable. No prevertebral soft tissue swelling. LYMPH NODES: Unremarkable. No cervical adenopathy. LUNG APICES: Unremarkable as visualized. Clear. CT/Spine Cervical without Contras IMPRESSION: 1. No acute injuries identified involving the cervical spine. 2. Degenerative changes. Electronically Signed: Rashard Lewis MD at 2:00 EST ,
--- NOTE | 2022-09-02 00:12 | CT_ITS ---
EXAM: CT HEAD WITHOUT INTRAVENOUS CONTRAST CLINICAL INDICATION: head injury TECHNIQUE: Multiple axial images were obtained of the head without intravenous contrast. This CT exam was performed using one or more of the following dose reduction techniques: automated exposure control, adjustment of the mA and/or kV according to patient size, and/or use of iterative reconstruction technique. This report was created using [employer] report generation technology. COMPARISON: 09/24/2020 FINDINGS: BRAIN AND EXTRA-AXIAL SPACES: Diffuse cerebral volume loss. Periventricular small vessel ischemic changes. No intra- or extra-axial hemorrhage. No intracranial mass or mass effect. Posterior fossa structures are unremarkable. No hydrocephalus. Basal cisterns are patent. BONES/JOINTS: Unremarkable. No discrete lytic or blastic abnormalities. VASCULATURE: Vascular calcifications. SINUSES: Unremarkable as visualized. Clear. MASTOID AIR CELLS: Unremarkable. Clear. ORBITS: Visualized globes, extraocular muscles, optic nerves and retrobulbar fat appear unremarkable. CT/Brain/Head without Contrast IMPRESSION: 1. No acute intracranial abnormalities. 2. Age-related changes. Electronically Signed: Rashard Lewis MD at 1:59 EST ,
[2022-09-02 00:41] LABS: Absolute Lymphocyte Count 0.63 X10^3/uL (0.83-4.51); Absolute Neutrophil Count 11.3 X10^3/uL (2.0-7.7); Basophil# 0.03 X10^3/uL; Basophil% 0.2 % (0-1); Eosinophil# 0.09 X10^3/uL; Eosinophils% 0.7 % (0-5); Hematocrit 45.3 % (37-47); Hemoglobin 14.2 g/dL (12.0-15.0); Lymphocyte # 0.63 X10^3/ul (0.83-4.51); Lymphocyte % 4.8 % (19-41); Mean Corp Hgb Conc 31.3 g/dL (32-36); Mean Corpuscular Hgb 28.8 pg (27.0-32.0); Mean Corpuscular Volume 91.9 fL (81-99); Mean Platelet Vol. 9.3 fl (6.2-12.0); Monocyte# 1.11 X10^3/uL; Monocyte% 8.4 % (0-10); NRBC Flagged by Analyzer 0 % (0-5); Neutrophil # 11.25 X10^3/uL (2.7-7.7); Neutrophil % 85.5 % (47-70); Platelet Count 229 K/mm3 (150-450); RBC Distribution Width CV 13.1 % (11.6-14.6); RBC Distribution Width SD 44.5 fl (35.1-43.9); Red Blood Count 4.93 M/mm3 (4.2-5.4); White Blood Count 13.2 K/mm3 (4.4-11.0)
[2022-09-02] MEDS: 0.9% Normal Saline 1,000 ML 999 ML IV (00:41)
[2022-09-02] MEDS: Ondansetron 4 MG/2 ML Vial IV ×2 (00:41→04:14)
[2022-09-02 00:59] LABS: AST(SGOT) 25 U/L (15-37); Alanine Aminotransfer ALT/SGPT 27 U/L (13-56); Alkaline Phosphatase 86 U/L (45-117); Anion Gap 5 (5-15); BUN 21 mg/dL (7-18); BUN/Creat Ratio 19.4 RATIO (10-20); Bilirubin, Direct 0.17 mg/dL (0.00-0.30); Chloride 111 mmol/L (98-107); Creatinine, Serum 1.08 mg/dL (0.55-1.02); EST Glomerular Filtration Rate 53 mL/min (>60); Est Glom Filt Rate - Afr Amer 64 mL/min (>60); Globulin 3.3 g/dL (2.2-4.2); Glucose 128 mg/dL (74-106); Lipase 276 U/L (73-393); Magnesium 2.4 mg/dL (1.6-2.6); Potassium 4.3 mmol/L (3.5-5.1); Protein, Total 7.3 g/dL (6.4-8.2); Sodium Level 145 mmol/L (136-145)
[2022-09-02] MEDS: fentaNYL 100 MCG/2 ML Ampul 25 MCG IV (01:42)
--- NOTE | 2022-09-02 03:59 | CT_ITS ---
EXAM: CT ABDOMEN AND PELVIS WITH INTRAVENOUS CONTRAST CLINICAL INDICATION: abd pain TECHNIQUE: Helically acquired images were obtained of the abdomen and pelvis with intravenous contrast. This CT exam was performed using one or more of the following dose reduction techniques: automated exposure control, adjustment of the mA and/or kV according to patient size, and/or use of iterative reconstruction technique. This report was created using [employer] report generation technology. CONTRAST: IV 100mL Isovue-300 COMPARISON: 09/04/2021 FINDINGS: LOWER THORAX: Bibasilar dependent atelectasis. No cardiomegaly. No significant pericardial effusion. ABDOMEN: LIVER: Unremarkable. Homogeneous. No focal mass. GALLBLADDER AND BILE DUCTS: Unremarkable. No calcified gallstones. No gallbladder distention or wall edema. No intra- or extrahepatic biliary ductal dilation. PANCREAS: Unremarkable. No focal cystic or solid mass. SPLEEN: Unremarkable. Normal size without focal cystic or solid mass. ADRENALS: Unremarkable. No nodules. KIDNEYS AND URETERS: Small nonobstructing stone in the right kidney. Some atrophy of the left kidney. STOMACH AND BOWEL: Multiple fluid-filled loops of prominent but nondilated small bowel. No focal inflammatory change. PELVIS: APPENDIX: The appendix is normal. BLADDER: Unremarkable. REPRODUCTIVE: Unremarkable as visualized. No mass. ABDOMEN and PELVIS: INTRAPERITONEAL SPACE: Unremarkable. No ascites or other fluid collection. No free air. BONES/JOINTS: Diffuse degenerative changes of the spine. No suspicious lytic or blastic abnormality. SOFT TISSUES: Unremarkable. No discrete abdominal or pelvic wall hernia. VASCULATURE: Unremarkable. Abdominal aorta is non-dilated. LYMPH NODES: Unremarkable. No enlarged lymph nodes. CT/Abdomen/Pelvis W IV Cont ONLY IMPRESSION: 1. Multiple fluid-filled loops of prominent but nondilated small bowel. This could indicate sequela of an infectious enteritis. 2. Small nonobstructing stone in the right kidney. Electronically Signed: Rashard Lewis MD at 5:11 EST ,
[2022-09-02] MEDS: 0.9% Normal Saline 1,000 ML 150 ML IV (04:11)
--- NOTE | 2022-09-02 05:42 | PCM.HP.STD ---
HPI - General General Date of Admission: 09/02/22 HPI Narrative MEL MERINO, is a 72 F who presents to the hospital with less than 24-hour onset of mild abdominal pain as well as nausea and vomiting. Her granddaughter is sick at home with a stomach bug and she started throwing up about 30 minutes prior to calling the ambulance. She does have a history of chronic back pain as well as Parkinson's disease and so that combination plus this gastroenteritis, she feels very weak. The illness has made her tremor worse from her Parkinson's. In the ER she has a mild leukocytosis of 13.2, her creatinine is at baseline and she was given a liter of fluid. [facility] Medical History (Updated 09/02/22 @ 05:[address] Garrett Downey MD) Essential hypertension Fibromyalgia GERD (gastroesophageal reflux disease) Hyperlipidemia Irritable bowel syndrome with both constipation and diarrhea Lumbar radiculopathy Non-smoker Parkinsons disease Renal calculus, right Scoliosis of thoracolumbar spine Situational depression Thoracic radiculopathy due to degenerative joint disease of spine Home Medications lisinopril 20 mg tablet 20 mg PO QHS blood pressure 04/09/17 [History Last Taken 05/14/22] omeprazole 20 mg capsule,delayed release 20 mg PO BID GERD 09/09/20 [History Last Taken 05/14/22] gabapentin 100 mg capsule 300 mg PO QHS 10/15/20 [History Last Taken 05/14/22] acetaminophen 500 mg tablet 500 - 1,000 mg PO Q6H PRN PRN Pain 1-10 Or Fever 01/10/21 [History Last Taken Unknown] Allergy/AdvReac Type Severity Reaction Status Date / Time nitrofurantoin Allergy Hives Verified 05/15/22 14:05 [From Macrobid] hydrocodone [From Vicodin] AdvReac Vomiting Verified 05/15/22 14:05 morphine AdvReac Vomiting Verified 05/15/22 14:05 pregabalin [From Lyrica] AdvReac Vomiting Verified 05/15/22 14:05 Family History (Updated 05/15/22 @ 17:37 by Sandra Lim CHEMIST HELPER, CHEMIST HELPER-C) Mother Dementia Father No cardiac disease Surgical History H/O ventral hernia repair History of cataract surgery History of cholecystectomy Hx laparoscopic cholecystectomy Social History Smoking Status: Never smoker Electronic Cigarette Use: not used second hand exposure: No alcohol intake: never substance use type: does not use ROS Constitutional Constitutional: Reports fatigue; Denies chills, fever(s) or malaise Eyes Eyes: Denies blurry vision ENT HEENT: Denies headache(s) or nasal discharge Cardiovascular Cardiovascular: Denies chest pain, dyspnea on exertion or syncope Respiratory/Chest Respiratory/Chest: Denies cough, shortness of breath at rest or shortness of breath with exertion Gastrointestinal Gastrointestinal: Reports nausea and vomiting; Denies constipation or diarrhea Genitourinary Genitourinary: Denies dysuria Neurologic Neurologic: Denies focal weakness, numbness or tremor(s) Psychiatric Psychiatric: Denies anxiety or depression Vital Signs Vital Signs Vital Signs: 09/01/22 23:49 09/02/22 01:46 09/02/22 03:46 Temperature 97.5 F L Temperature Source Oral Pulse Rate 99 91 85 Respiratory Rate 20 H 18 15 Blood Pressure 182/80 H 155/82 H 136/79 H Blood Pressure Mean 114 106 98 Pulse Ox 96 97 96 Oxygen Delivery Method Room Air Room Air Room Air 09/02/22 05:00 Temperature Temperature Source Pulse Rate 92 Respiratory Rate 18 Blood Pressure 137/70 H Blood Pressure Mean 92 Pulse Ox 94 Oxygen Delivery Method Room Air Weight Weight: 138 lb 10.732 oz Body Mass Index (BMI) 24.5 Physical Exam Narrative General: Drowsy, will open her eyes to command, No apparent distress HEENT: Atraumatic, PERRLA, EOMI, Normocephalic Oral: Dry mucosa Neck: Supple, No JVD Lungs: Clear to auscultation, Normal air movement, No rhonchi, No wheeze, No rales Cardiovascular: Regular rate, Regular Rhythm, Normal S1, Normal S2, No murmurs Abdomen: Soft, Non Tender, Non-Distended, No Hepato-splenomegaly Extremities: No edema, Capillary Refill Less than 3 Seconds Skin: No rashes, No breakdown Musculoskeletal: No Tenderness to Palpation of Joints or Extremities Neurological: Cranial nerves II-XII grossly intact, Parkinson's tremor Psych/Mental Status: Flat affect, Appropriate Results Lab / Micro Data Result Diagrams: 09/02/22 00:34 09/02/22 00:34 Labs: Laboratory Results - last 24 hr 09/02/22 00:34: WBC 13.2 H, RBC 4.93, Hgb 14.2, Hct 45.3, MCV 91.9, MCH 28.8, MCHC 31.3 L, RDW Std Deviation 44.5 H, RDW Coeff of Brady 13.1, Plt Count 229, MPV 9.3, Immature Gran % (Auto) 0.400, Neut % (Auto) 85.5 H, Lymph % (Auto) 4.8 L, [place] % (Auto) 8.4, Eos % (Auto) 0.7, Baso % (Auto) 0.2, Absolute Neuts (auto) 11.3 H, Absolute Lymphs (auto) 0.63 L, Nucleated RBC % 0 09/02/22 00:34: Sodium 145, Potassium 4.3, Chloride 111 H, Carbon Dioxide 29.0, Anion Gap 5, BUN 21 H, Creatinine 1.08 H, Estim Creat Clear Calc 37.80, Est GFR (MDRD) Af Amer 64, Est GFR (MDRD) Non-Af 53 L, BUN/Creatinine Ratio 19.4, Glucose 128 H, Calcium 9.0, Magnesium 2.4, Total Bilirubin 0.70, Direct Bilirubin 0.17, AST 25, ALT 27, Alkaline Phosphatase 86, Total Protein 7.3, Albumin 4.0, Globulin 3.3, Lipase [address] 09/02/22 00:12 IMPRESSION: 1. No acute intracranial abnormalities. 2. Age-related changes. Electronically Signed: Rashard Lewis MD at 1:59 EST Reading Location ID and State: [address] [place] [address] Tel , Service support , Cervical Spine CT 09/02/22 00:12 IMPRESSION: 1. No acute injuries identified involving the cervical spine. 2. Degenerative changes. Electronically Signed: Rashard Lewis MD at 2:00 EST Reading Location ID and State: [facility] / [place] Tel , Service support , Hip/Pelvis X-Ray 09/02/22 00:12 IMPRESSION: No evidence of displaced pelvic or hip fracture. Electronically Signed: Rashard Lewis MD at 1:31 EST , Lumbar Spine X-Ray 09/02/22 00:12 IMPRESSION: Severe degenerative changes throughout the intervertebral discs, as well as dextrocurvature of the lumbar spine. No acute abnormalities identified. Electronically Signed: Rashard Lewis MD at 1:34 EST , Abdomen/Pelvis CT 09/02/22 03:59 IMPRESSION: 1. Multiple fluid-filled loops of prominent but nondilated small bowel. This could indicate sequela of an infectious enteritis. 2. Small nonobstructing stone in the right kidney. Electronically Signed: Rashard Lewis MD at 5:11 EST , Assessment & Plan Assessment/Plan (1) Gastroenteritis: PLAN: Plan 1. Gastroenteritis/CKD 3a ? Her granddaughter is sick at home with something similar ? Continue with IV fluids ? She can start out with a clear liquid diet and can advance as tolerated ? Zofran for nausea ? Renal function is at baseline, will continue to monitor 2. Hypertension ? Stable ? Continue with lisinopril 3. Chronic back pain ? Stable ? Managed with gabapentin which can be continued here 4. GERD ? Stable ? Continue with PPI 5. Parkinson's disease ? Stable ? She was diagnosed within the last year and needs to follow-up with her neurologist to be evaluated for more medication ? Her tremor is worse likely due to her acute illness DVT: Ambulation Charges/Coding Visit Charges OBSV E&M: 80295 Initial observation care L2
--- NOTE | 2022-09-02 05:48 | EDS_ITS ---
HPI History of Present Illness Chief Complaint: Nausea/Vomiting Narrative Narrative: Patient is a 72-year-old female who lives at home with her daughter. She has a past medical history of hypertension hyperlipidemia and Parkinson's disease as well as chronic pain from degenerative disc disease in her low back. She states that the daughter whom she lives with has not been sick but her other son and grandkids have had illnesses similar to hers. She states this evening she was up trying to go to the bathroom when she was weak and fell. She denies striking her head or any loss of consciousness or blood thinner use. She states that she was not on the ground for hours before she was able to get help and get back up. She states that as time is past her weakness has worsened and with the persistent nausea and vomiting presents to the hospital for evaluation [facility] Medical History Essential hypertension Fibromyalgia GERD (gastroesophageal reflux disease) Hyperlipidemia Irritable bowel syndrome with both constipation and diarrhea Lumbar radiculopathy Non-smoker Parkinsons disease Renal calculus, right Scoliosis of thoracolumbar spine Situational depression Thoracic radiculopathy due to degenerative joint disease of spine Home Medications lisinopril 20 mg tablet 20 mg PO QHS blood pressure 04/09/17 [History Last Taken 05/14/22] omeprazole 20 mg capsule,delayed release 20 mg PO BID GERD 09/09/20 [History Last Taken 05/14/22] gabapentin 100 mg capsule 300 mg PO QHS 10/15/20 [History Last Taken 05/14/22] acetaminophen 500 mg tablet 500 - 1,000 mg PO Q6H PRN PRN Pain 1-10 Or Fever 01/10/21 [History Last Taken Unknown] Allergy/AdvReac Type Severity Reaction Status Date / Time nitrofurantoin Allergy Hives Verified 05/15/22 14:05 [From Macrobid] hydrocodone [From Vicodin] AdvReac Vomiting Verified 05/15/22 14:05 morphine AdvReac Vomiting Verified 05/15/22 14:05 pregabalin [From Lyrica] AdvReac Vomiting Verified 05/15/22 14:05 Family History (Updated 05/15/22 @ 17:37 by Sandra Lim [employer], [employer]C) Mother Dementia Father No cardiac disease Surgical History H/O ventral hernia repair History of cataract surgery History of cholecystectomy Hx laparoscopic cholecystectomy Social History Smoking Status: Never smoker Electronic Cigarette Use: not used second hand exposure: No alcohol intake: never substance use type: does not use ROS ROS ED Constitutional Constitutional ED: Denies chills or fever(s) ENT ENT ED: Denies sore throat Cardiovascular Cardiovascular: Denies chest pain Respiratory/Chest Respiratory/Chest: Denies cough or dyspnea Gastrointestinal Gastrointestinal: Reports diarrhea, nausea and vomiting; Denies abdominal pain Genitourinary Genitourinary ED: Denies dysuria Musculoskeletal Musculoskeletal: Reports back pain and other Details: Positive right hip pain Integumentary Denies Abrasions or rash Neurologic Neurologic: Reports weakness; Denies headache(s) Hematologic/Lymphatic Hematologic/Lymphatic: Denies easy bleeding or easy bruising EXAM Physical Exam Const Vital Signs: 09/01/22 23:49 09/02/22 01:46 09/02/22 03:46 Temperature 97.5 F L Temperature Source Oral Pulse Rate 99 91 85 Respiratory Rate 20 H 18 15 Blood Pressure 182/80 H 155/82 H 136/79 H Blood Pressure Mean 114 106 98 Pulse Ox 96 97 96 Oxygen Delivery Method Room Air Room Air Room Air 09/02/22 05:00 09/02/22 05:45 Temperature 96.6 F L Temperature Source Temporal Pulse Rate 92 92 Respiratory Rate 18 18 Blood Pressure 137/70 H 137/70 H Blood Pressure Mean 92 92 Pulse Ox 94 93 Oxygen Delivery Method Room Air Room Air Positive well nourished and well developed General Appearance ED: well developed HEENT Reports dry mucous membranes HEENT Narrative: Mucous membranes are dry and tacky but show no secondary changes to suggest infection Mouth ED: Yes dry mucous membranes Mouth: dry mucous membranes Eyes PERRL and EOMs intact bilaterally Neck supple Chest Wall palpation of chest normal Resp normal respiratory effort and clear to auscultation bilaterally Resp Narrative: Breath sounds are diminished throughout but overall clear to auscultation with no signs of distress Cardio regular rate and regular rhythm Rate: other Other Details: Radial pulses are +2-4 bilaterally are equal and symmetric GI non-tender and non-distended GI Narrative: Abdomen is soft nontender and nondistended with hyperactive bowel sounds. No voluntary guarding or rigidity. No pulsatile mass Auscultation: hyperactive bowel sounds Palpation: soft Back/Spine Back/Spine Narrative: Patient has scoliosis noted of her spine and there is mild pain with palpation over top the lumbar vertebrae without overt bony deformity Extremity Extremity Narrative: Patient has +1-2 pitting edema to the lower extremities that is equal and symmetric and chronic in nature. Negative Homans' sign bilaterally Pelvis is stable there is no shortening or external rotation of either lower extremity the patient does have pain with palpation along the greater trochanter of the right hip. Neuro oriented x3 and CN's II-XII intact bilaterally Neuro Narrative: Patient has GCS of 14 and will awake to voice. She has chronic tremor of her hands greatest on the right consistent with history of parkinsonism. No new or acute deficit noted Sensorium / Orientation: alert Psych mental status grossly normal Psych Narrative: Patient has a flat affect consistent with masked facies of parkinsonism Skin no rashes or lesions noted Skin Narrative: Skin turgor is increased MDM MDM MDM Narrative Medical decision making narrative: Patient presented to the ER with a soft nonsurgical abdomen. Her history is consistent with viral gastroenteritis. As she reported she fell I did elect to perform imaging of her head and cervical spine as well as her right hip and low back. Images revealed no acute traumatic finding. Her white count is elevated at 13 and this is most likely stress response or secondary to viral infection but with the patient's persistent weakness and still bouts of nausea and vomiting and elected to add a CT of the abdomen pelvis. This displayed fluid- filled intestines consistent with gastroenteritis but no obvious obstruction. The patient was hydrated and given medication for nausea and we attempted to ambulate her. Despite symptom treatment she could not walk and therefore we placed in the hospital at this time Lab Data Attestation: I reviewed the patient's lab results. Labs: Laboratory Results - last 24 hr 09/02/22 09/02/22 00:34 00:34 WBC 13.2 H RBC 4.93 Hgb 14.2 Hct 45.3 MCV 91.9 MCH 28.8 MCHC 31.3 L RDW Std Deviation 44.5 H RDW Coeff of Brady 13.1 Plt Count 229 MPV 9.3 Immature Gran % (Auto) 0.400 Neut % (Auto) 85.5 H Lymph % (Auto) 4.8 L Sharkey % (Auto) 8.4 Eos % (Auto) 0.7 Baso % (Auto) 0.2 Absolute Neuts (auto) 11.3 H Absolute Lymphs (auto) 0.63 L Nucleated RBC % 0 Sodium 145 Potassium 4.3 Chloride 111 H Carbon Dioxide 29.0 Anion Gap 5 BUN 21 H Creatinine 1.08 H Estim Creat Clear Calc 37.80 Est GFR (MDRD) Af Amer 64 Est GFR (MDRD) Non-Af 53 L BUN/Creatinine Ratio 19.4 Glucose 128 H Calcium 9.0 Magnesium 2.4 Total Bilirubin 0.70 Direct Bilirubin 0.17 AST 25 ALT 27 Alkaline Phosphatase 86 Total Protein 7.3 Albumin 4.0 Globulin 3.3 Lipase 276 Radiography Diagnostic Testing: Clinical Impression(s) from Imaging Studies Brain CT 09/02/22 00:12 IMPRESSION: 1. No acute intracranial abnormalities. 2. Age-related changes. Electronically Signed: Rashard Lewis MD at 1:59 EST Reading Location ID and State: [facility] / [place] Tel , Service support , Cervical Spine CT 09/02/22 00:12 IMPRESSION: 1. No acute injuries identified involving the cervical spine. 2. Degenerative changes. Electronically Signed: Rashard Lewis MD at 2:00 EST Reading Location ID and State: [facility] / [place] Tel , Service support , Hip/Pelvis X-Ray 09/02/22 00:12 IMPRESSION: No evidence of displaced pelvic or hip fracture. Electronically Signed: Rashard Lewis MD at 1:31 EST Reading Location ID and State: [employer] / [place] Tel , Service support , Lumbar Spine X-Ray 09/02/22 00:12 IMPRESSION: Severe degenerative changes throughout the intervertebral discs, as well as dextrocurvature of the lumbar spine. No acute abnormalities identified. Electronically Signed: Rashard Lewis MD at 1:34 EST Reading Location ID and State: [employer] / [place] Tel , Service support , Abdomen/Pelvis CT 09/02/22 03:59 IMPRESSION: 1. Multiple fluid-filled loops of prominent but nondilated small bowel. This could indicate sequela of an infectious enteritis. 2. Small nonobstructing stone in the right kidney. Electronically Signed: Rashard Lewis MD at 5:11 EST , X-ray of the right hip and 1 view pelvis as interpreted by the emergency medicine physician reveals degenerative changes without acute fracture or dislocation X-ray of the lumbosacral spine as interpreted by the emergency medicine physician reveals degenerative changes without acute fracture or spondylolisthesis Discharge Plan Triage Chief Complaint: Nausea/Vomiting ED Provider: Gabriele Alamo Dx/Rx/DC Orders Clinical Impression: Nausea vomiting and diarrhea, Parkinsons disease, Weakness, Dehydration, Inability to walk Prescriptions: No Action gabapentin 100 mg capsule 300 mg PO QHS lisinopril 20 MG tablet 20 mg PO QHS omeprazole 20 mg capsule,delayed release(DR/EC) 20 mg PO BID acetaminophen 500 MG tablet 500 - 1,000 mg PO Q6H PRN PRN (Reason: Pain 1-10 Or Fever) Primary Care Provider: Care Physician,No Primary Referrals: Care Physician,No Primary [Primary Care Provider] - Disposition Disposition: Acute Care [facility]
--- NOTE | 2022-09-02 06:45 | NURSING ---
MED SURG OBS KJ GASTROENTERITIS
--- NOTE | 2022-09-02 09:30 | PCM.HOSP.N ---
Hospitalist Note Admitted this a.m. for abdominal pain, also has chronic back pain and Parkinson's and has some general weakness. Still feeling nauseated this a.m. and having back pain. Had difficulty answering questions and was very distressed by her pain. Zofran as needed. On gabapentin for back pain, additionally will add as needed medication and lidocaine patch. X-ray was obtained which showed severe degenerative changes throughout the intervertebral discs. Had an MRI of the lumbar spine several months ago which showed multilevel spinal stenosis. Continue fluids and supportive care. Clear liquid diet, will advance as tolerated. May need to consider PT/OT prior to discharge.
[2022-09-02] MEDS: Pantoprazole Sodium 20 MG Tablet PO ×2 (10:38→21:53)
[2022-09-02] MEDS: Lidocaine 5% Patch 2 PATCH TOPICAL (10:38)
[2022-09-02] MEDS: 0.9% Normal Saline 1,000 ML 100 ML IV ×2 (10:38→20:33)
[2022-09-02] MEDS: Acetaminophen 325 MG Tablet 650 MG PO (12:25)
--- NOTE | 2022-09-02 15:43 | CASEMGMT ---
Social Work? SW in to pt room to verify Advanced Directives. Pt confirmed has HCPOA/LW. Pt named daughter, Shila, as agent. Pt made aware these documents are not on file and that pt can bring a copy in and drop off at Medical records in future if willing to do so. Pt voiced understanding.?? JEFF Hunter?
[2022-09-02] MEDS: Lisinopril 20 MG Tablet PO (21:53)
[2022-09-02] MEDS: Gabapentin 300 MG Capsule PO (21:53)
[2022-09-03 02:41] VITALS: BP 122/74; PULSE 71; RESP 18; TEMP 37.2; O2SAT 94
[2022-09-03 04:54] LABS: Absolute Lymphocyte Count 0.67 X10^3/uL (0.83-4.51); Absolute Neutrophil Count 1.8 X10^3/uL (2.0-7.7); Basophil# 0.01 X10^3/uL; Basophil% 0.3 % (0-1); Eosinophil# 0.05 X10^3/uL; Eosinophils% 1.7 % (0-5); Hematocrit 36.6 % (37-47); Hemoglobin 11.3 g/dL (12.0-15.0); Lymphocyte # 0.67 X10^3/ul (0.83-4.51); Lymphocyte % 22.6 % (19-41); Mean Corp Hgb Conc 30.9 g/dL (32-36); Mean Corpuscular Hgb 28.8 pg (27.0-32.0); Mean Corpuscular Volume 93.4 fL (81-99); Monocyte# 0.42 X10^3/uL; Monocyte% 14.1 % (0-10); NRBC Flagged by Analyzer 0 % (0-5); Neutrophil # 1.81 X10^3/uL (2.7-7.7); Platelet Count 153 K/mm3 (150-450); RBC Distribution Width CV 13.3 % (11.6-14.6); RBC Distribution Width SD 45.5 fl (35.1-43.9); Red Blood Count 3.92 M/mm3 (4.2-5.4)
[2022-09-03 05:30] LABS: Anion Gap 5 (5-15); BUN 14 mg/dL (7-18); BUN/Creat Ratio 16.4 RATIO (10-20); Calcium,Total 7.7 mg/dL (8.5-10.1); Chloride 112 mmol/L (98-107); Creatinine, Serum 0.86 mg/dL (0.55-1.02); EST Glomerular Filtration Rate 69 mL/min (>60); Est Glom Filt Rate - Afr Amer 83 mL/min (>60); Estimated Creatinine Clearance 47.47 ml/min; Glucose 85 mg/dL (74-106); Potassium 3.5 mmol/L (3.5-5.1); Sodium Level 143 mmol/L (136-145)
[2022-09-03] MEDS: 0.9% Normal Saline 1,000 ML 100 ML IV (06:08)
[2022-09-03 08:32] VITALS: BP 126/73; PULSE 66; RESP 18; TEMP 36.4; O2SAT 95
[2022-09-03] MEDS: Lidocaine 5% Patch 2 PATCH TOPICAL (10:17)
[2022-09-03] MEDS: Pantoprazole Sodium 20 MG Tablet PO (10:18)
[2022-09-03] MEDS: Acetaminophen 325 MG Tablet 650 MG PO (10:18)
--- NOTE | 2022-09-03 11:26 | CASEMGMT ---
RAUL CM in to discuss JACOB form with patient. RN CM explained JACOB form, patient voiced understanding. Pt signed form and filed in chart. Pt provided with a copy of signed JACOB form. Patient had no further questions or concerns at this time.
--- NOTE | 2022-09-03 11:26 | CASEMGMT ---
RAUL SNOW noted therapy eval recommending home therapy. RAUL SNOW into pt room, pt dtr at bedside. Discussed this with patient and she declines any HHC. She states she lives with her granddtr who used to be a nurse's aide and she also receives help from her dtr. She states she has several canes at home as well as a FWW and lives in a single story home. She denies any homegoing needs at this time. Updated hospitalist.
--- NOTE | 2022-09-03 12:36 | DCINST_ITS ---
Discharge Instructions Diet Discharge Diet: No restrictions Activity Discharge Activity: Return to Normal Activity Follow Up Care Test Results: Test results from this visit will be discussed in further detail at your follow- up appointment, if applicable. Discharge Plan Admission Admit Date/Time: 09/02/22 05:40 Primary Reason for Your Visit: Abdominal pain, nausea, vomiting Attending Provider: Emily Alberts Primary Care Provider: Care Physician,No Primary Consulting Providers: Garrett Downey Instructions Patient Instructions: ED Gastroenteritis, Viral (Adult) Additional Instructions / Restrictions: Continue your home medications It is important that you maintain hydration and nutrition -Please call your primary care provider's office upon discharge to schedule a hospital follow up within 1 week. -For any concerning signs or symptoms please call 911 or proceed to the nearest emergency department Discharge Orders/Prescriptions Prescriptions: Continued gabapentin 100 mg capsule 300 mg PO QHS lisinopril 20 MG tablet 20 mg PO QHS omeprazole 20 mg capsule,delayed release(DR/EC) 20 mg PO BID acetaminophen 500 MG tablet 500 - 1,000 mg PO Q6H PRN PRN (Reason: Pain 1-10 Or Fever) Referrals / Follow Up: Care Physician,No Primary [Primary Care Provider] - Disposition Disposition (needs filled in before D/C Order can be placed): Home, Self Care
--- NOTE | 2022-09-03 12:40 | PCM.DC.SUM ---
Providers Date of Admission: 09/02/22 Date of Discharge: 09/03/22 Primary Care Physician: No Primary Care Phys Reason For Visit: GASTROENTERITIS Diagnosis Discharge Diagnosis (1) Gastroenteritis: Status: Acute Code(s): K52.9 - Noninfective gastroenteritis and colitis, unspecified Plan 1.? Gastroenteritis/CKD 3a 2.? Hypertension 3.? Chronic back pain 4.? GERD 5.? Parkinson's disease Medications at Discharge Home Medications lisinopril 20 mg tablet 20 mg PO QHS blood pressure 04/09/17 omeprazole 20 mg capsule,delayed release 20 mg PO BID GERD 09/09/20 gabapentin 100 mg capsule 300 mg PO QHS 10/15/20 acetaminophen 500 mg tablet 500 - 1,000 mg PO Q6H PRN PRN Pain 1-10 Or Fever 01/10/21 Hospital Course Summary of Care Provided Minutes Spent on Discharge: 20 Hospital Course: Ms. Stinson is a 72-year-old female with a history of Parkinson's disease, GERD, hypertension who presented to [facility] 09/02 with 24-hour onset of mild abdominal pain as well as nausea and vomiting. Granddaughter was sick at home with a stomach bug as well. She also chronic back pain that was exacerbated. She had a CT which was consistent with gastroenteritis. She was given IV fluids and started on a clear liquid diet with Zofran for nausea. She significantly improved with supportive measures. Additionally back pain improved with conservative measures as well. Discharged home in stable condition. Physical Exam Const alert and no apparent distress HEENT normocephalic and head/scalp atraumatic Eyes Eyes Narrative: EOM grossly intact, anicteric Neck supple Resp normal respiratory effort and clear to auscultation bilaterally Cardio regular rate and regular rhythm GI soft to palpation, non-tender and non-distended Extremity Extremity Narrative: No edema appreciated Neuro moves all extremities Neuro Narrative: Hand tremor noted Psych Psych Narrative: Cooperative Weight / BMI Weight Weight: 59.8 kg Body Mass Index (BMI) 23.3 ABG / Lab / Microbiology Data Result Diagrams: 09/03/22 03:50 09/03/22 03:50 Laboratory: Laboratory Results - last 24 hr 09/03/22 03:50: WBC 3.0 L, RBC 3.92 L, Hgb 11.3 L, Hct 36.6 L, MCV 93.4, MCH 28.8, MCHC 30.9 L, RDW Std Deviation 45.5 H, RDW Coeff of Brady 13.3, Plt Count 153, MPV 10.0, Immature Gran % (Auto) 0.300, Neut % (Auto) 61.0, Lymph % (Auto) 22.6, [place] % (Auto) 14.1 H, Eos % (Auto) 1.7, Baso % (Auto) 0.3, Absolute Neuts (auto) 1.8 L, Absolute Lymphs (auto) 0.67 L, Nucleated RBC % 0 09/03/22 03:50: Sodium 143, Potassium 3.5, Chloride 112 H, Carbon Dioxide 26.0, Anion Gap 5, BUN 14, Creatinine 0.86, Estim Creat Clear Calc 47.47, Est GFR (MDRD) Af Amer 83, Est GFR (MDRD) Non-Af 69, BUN/Creatinine Ratio 16.4, Glucose 85, Calcium 7.7 L D/C Instructions Discharge Diet: No restrictions Meaningful Use Info Meaningful Use Diagnoses (Choose all that apply): None applicable Discharge Plan Admission Admit Date/Time: 09/02/22 05:40 Primary Reason for Your Visit: Abdominal pain, nausea, vomiting Attending Provider: Emily Alberts Primary Care Provider: Villa Judge,Rosanna Primary Consulting Providers: Garrett Downey Instructions Patient Instructions: ED Gastroenteritis, Viral (Adult) Additional Instructions / Restrictions: Continue your home medications It is important that you maintain hydration and nutrition -Please call your primary care provider's office upon discharge to schedule a hospital follow up within 1 week. -For any concerning signs or symptoms please call 911 or proceed to the nearest emergency department Discharge Orders/Prescriptions Prescriptions: Continued gabapentin 100 mg capsule 300 mg PO QHS lisinopril 20 MG tablet 20 mg PO QHS omeprazole 20 mg capsule,delayed release(DR/EC) 20 mg PO BID acetaminophen 500 MG tablet 500 - 1,000 mg PO Q6H PRN PRN (Reason: Pain 1-10 Or Fever) Referrals / Follow Up: Care Physician,No Primary [Primary Care Provider] - Disposition Disposition (needs filled in before D/C Order can be placed): Home, Self Care Charges/Coding Visit Charges OBSV E&M: 01842 Observation care discharge
[2022-09-03 13:07] VITALS: BP 144/70; PULSE 66; RESP 18; TEMP 36.7; O2SAT 97
== END 2022-09-03 13:53 | disposition home or self-care (01) ==
LOC: ED 09-02 05:54 → MS3 09-02 06:09
PROVIDERS: Admitting Provider Family Medicine; Emergency Provider Emergency Medicine; Visit Provider Internal Medicine
DX: K52.9 Noninfective gastroenteritis and colitis, unspecified (principal); G20 Parkinson's disease; N18.31 Chronic kidney disease, stage 3a; I12.9 Hypertensive chronic kidney disease with stage 1 through stage 4 chronic kidney disease, or unspecified chronic kidney disease; M79.7 Fibromyalgia; E78.5 Hyperlipidemia, unspecified; E86.0 Dehydration; G89.29 Other chronic pain; K21.9 Gastro-esophageal reflux disease without esophagitis; Z79.899 Other long term (current) drug therapy; M51.36 Other intervertebral disc degeneration, lumbar region
CPT/HCPCS: 36415; 70450; 72100; 72125; 73502; 74177; 80048; 80076; 83690; 83735; 85025; 97162; 97166; 99285; J7030; Q9967; A4216; J2405

== ENCOUNTER → 2022-09-17 | Outpatient (CLI) | payer MEDICARE, BC, SELFPAY ==
--- NOTE | 2022-09-17 12:45 | CT_ITS ---
EXAM: CT ABDOMEN AND PELVIS WITH INTRAVENOUS CONTRAST CLINICAL INDICATION: ABD PAIN TECHNIQUE: Helically acquired images were obtained of the abdomen and pelvis with intravenous contrast. This CT exam was performed using one or more of the following dose reduction techniques: automated exposure control, adjustment of the mA and/or kV according to patient size, and/or use of iterative reconstruction technique. This report was created using [employer] report generation technology. CONTRAST: Oral and amp; IV Gastrografin and amp; 100mL Isovue-300 COMPARISON: 09/02/2022. FINDINGS: LOWER THORAX: Unremarkable. Lung bases are clear. No cardiomegaly. No significant pericardial effusion. ABDOMEN: LIVER: Unremarkable. Homogeneous. No focal mass. GALLBLADDER AND BILE DUCTS: Unremarkable. No calcified gallstones. No gallbladder distention or wall edema. No intra- or extrahepatic biliary ductal dilation. PANCREAS: Unremarkable. No focal cystic or solid mass. SPLEEN: Unremarkable. Normal size without focal cystic or solid mass. ADRENALS: Unremarkable. No nodules. KIDNEYS AND URETERS: Mild left renal atrophy. Nonobstructing right renal stones measure up to 3 mm. No hydronephrosis. STOMACH AND BOWEL: Small left inguinal hernia containing a short segment small bowel. No obstruction. No focal inflammatory change. PELVIS: APPENDIX: No evidence of acute appendicitis. BLADDER: Unremarkable. REPRODUCTIVE: Unremarkable as visualized. No mass. ABDOMEN and PELVIS: INTRAPERITONEAL SPACE: Unremarkable. No ascites or other fluid collection. No free air. BONES/JOINTS: Lumbar dextroscoliosis. No suspicious lytic or blastic abnormality. VASCULATURE: Unremarkable. Abdominal aorta is normal in caliber. LYMPH NODES: Unremarkable. No enlarged lymph nodes. CT/Abdomen/Pelvis WITH Contrast IMPRESSION: 1. No acute findings. 2. Small left inguinal hernia, no obstruction. 3. Nonobstructing right renal calculi. Electronically Signed: Cami Deleon MD at 17:34 EST Reading Location ID and State: [id number] / Tel , Service support ,
== END | disposition home or self-care (01) ==
LOC: CT 12:42
PROVIDERS: PCP Family Medicine; Referring Provider Family Medicine; Visit Provider Family Medicine
DX: R10.11 Right upper quadrant pain (principal); D64.9 Anemia, unspecified
CPT/HCPCS: 74177; Q9967; A4216

== ENCOUNTER 2022-09-25 18:29 | Emergency (ER) | payer MEDICARE, BC, SELFPAY ==
[2022-09-25 18:29] VITALS: BP 188/104; PULSE 100; RESP 32; TEMP 37.1; O2SAT 99; BMI 26.8
--- NOTE | 2022-09-25 19:47 | CT_ITS ---
STUDY: CT BRAIN WITHOUT CONTRAST REASON FOR EXAM: Female, 72 years old. confusion TECHNIQUE: Transaxial CT imaging of the brain was performed without administration of intravenous contrast material. Individualized dose optimization techniques were used for this CT. COMPARISON: 09.02.22 FINDINGS: Normal calvarium. Normal soft tissues. Normal size ventricles and extra-axial spaces for the patient''s age. There are areas of decreased attenuation within the white matter tracts of the supratentorial brain, consistent with microvascular disease changes. Normal basal ganglia and thalami. Normal brainstem. Normal cerebellum. There is no intracranial hemorrhage. There are no findings of an acute ischemic infarction. Normal visualized paranasal sinuses. ASPECTS 10 CT/Brain/Head without Contrast IMPRESSION: There are no acute intracranial findings. Electronically Signed: Rashard Raya MD at 21:25 EST ,
--- NOTE | 2022-09-25 19:48 | CT_ITS ---
STUDY: CT Abdomen And Pelvis W/ Contrast Injection 09/25/2022 9:25 PM REASON FOR EXAM: Female, 72 years old. Abdominal pain hernia Individualized dose optimization techniques were used for this CT. COMPARISON: 09/17/2022 TECHNIQUE: CT Abdomen And Pelvis W/ Contrast Injection IV 75mL [id number]-300 FINDINGS: There are atherosclerotic calcifications of visualized coronary arteries. The visualized portions of the heart are within normal limits. With intrahepatic There is non-visualization of the gallbladder, which may be secondary to either contraction or a prior cholecystectomy. Normal spleen. Normal pancreas. Normal bilateral adrenal glands. Non obstructive 3.4mm right renal parenchymal stones. No acute findings of the left kidney. Normal visualized stomach. Normal small intestine. Stool throughout the colon. There is non-visualization of the appendix. There are calcifications of the abdominal aorta. This is consistent for atherosclerotic disease. There is NO abdominal aortic aneurysm. Vascular workup can be obtained based on clinical correlation. Normal inferior vena cava. Subcentimeter mesenteric lymph nodes. Normal urinary bladder. Left inguinal hernia containing fluid. There are diffuse degenerative changes of the visualized lumbar spine. There is scoliosis of the lumbar spine. There is bilateral neural foraminal stenosis at L4-5 and L5-S1. CT/Abdomen/Pelvis W IV Cont ONLY IMPRESSION: (NOT LISTED IN ORDER OF SIGNIFICANCE) Left inguinal hernia containing fluid. Non obstructive 3.4mm right renal parenchymal stones. Other findings as above. Electronically Signed: Rashard Raya MD at 21:28 EST ,
--- NOTE | 2022-09-25 19:50 | EDS_ITS ---
HPI History of Present Illness Chief Complaint: Abd Pain Narrative Narrative: 72-year-old female presenting with abdominal pain. She states he has a history of a left inguinal hernia and this acutely started hurting. She describes burning pain around this area. She states it started about an hour and a half ago. She took nothing for pain prior to arrival. She called EMS and received Toradol and Zofran. She states she was told she is good to need a hernia repair. She cannot currently recall who she is supposed to see. Prior to this her daughter states she was otherwise well. Her daughter does agree that she seems a little bit confused. Patient's daughter also states that she was supposed to follow-up for surgery but then had COVID. After she had COVID she had the influenza. No current fevers, chills, body aches. She has nausea. No diarrhea or constipation. PFSH PFS Medical History Dehydration Essential hypertension Fibromyalgia Gastroenteritis GERD (gastroesophageal reflux disease) Hyperlipidemia Irritable bowel syndrome with both constipation and diarrhea Lumbar radiculopathy Nausea vomiting and diarrhea Non-smoker Parkinsons disease Renal calculus, right Scoliosis of thoracolumbar spine Situational depression Thoracic radiculopathy due to degenerative joint disease of spine Home Medications lisinopril 20 mg tablet 20 mg PO QHS blood pressure 04/09/17 [History Last Taken 05/14/22] omeprazole 20 mg capsule,delayed release 20 mg PO BID GERD 09/09/20 [History Last Taken 05/14/22] gabapentin 100 mg capsule 300 mg PO QHS 10/15/20 [History Last Taken 05/14/22] acetaminophen 500 mg tablet 500 - 1,000 mg PO Q6H PRN PRN Pain 1-10 Or Fever 01/10/21 [History Last Taken Unknown] Allergy/AdvReac Type Severity Reaction Status Date / Time nitrofurantoin Allergy Hives Verified 09/25/22 18:32 [From Macrobid] hydrocodone [From Vicodin] AdvReac Vomiting Verified 09/25/22 18:32 morphine AdvReac Vomiting Verified 09/25/22 18:32 pregabalin [From Lyrica] AdvReac Vomiting Verified 09/25/22 18:32 Family History Mother Dementia Father No cardiac disease Surgical History H/O ventral hernia repair History of cataract surgery History of cholecystectomy Hx laparoscopic cholecystectomy Social History Smoking Status: Never smoker Electronic Cigarette Use: not used second hand exposure: No alcohol intake: never substance use type: does not use ROS ROS ED Constitutional Constitutional ED: Denies chills or fever(s) Eyes Eyes: Denies change in vision or diplopia ENT ENT ED: Denies rhinorrhea or sore throat Cardiovascular Cardiovascular: Denies chest pain or palpitations Respiratory/Chest Respiratory/Chest: Denies cough or dyspnea Gastrointestinal Gastrointestinal: Reports abdominal pain and nausea Genitourinary Genitourinary ED: Denies dysuria or hematuria Musculoskeletal Musculoskeletal: Denies arthralgias or back pain Integumentary Denies abscess or Abrasions Neurologic Neurologic: Denies headache(s) or paresthesias Psychiatric Psychiatric: Reports other Details: Confusion EXAM Physical Exam Const Vital Signs: 09/25/22 18:29 09/25/22 20:02 Temperature 98.8 F Temperature Source Temporal Pulse Rate 100 88 Respiratory Rate 32 H 20 H Blood Pressure 188/104 H 140/81 H Blood Pressure Mean 132 100 Pulse Ox 99 95 Oxygen Delivery Method Room Air Room Air Positive well nourished General Appearance ED: NAD HEENT Reports moist mucous membranes and dry mucous membranes Mouth ED: Yes dry mucous membranes Mouth: dry mucous membranes Eyes PERRL and EOMs intact bilaterally General Eye ED: Negative for pale conjunctiva or scleral icterus Resp normal respiratory effort and clear to auscultation bilaterally Cardio regular rate and regular rhythm GI GI Narrative: Left inguinal hernia on examination approximate size of a golf ball. Easily reduced. Neuro CN's II-XII intact bilaterally Sensorium / Orientation: alert Psych Psych Narrative: Appears confused. She has difficulty answering questions. MDM MDM MDM Narrative Medical decision making narrative: Presenting with burning pain around her hernia. This was easily reduced on physical exam. She is acting little more confused so I did do blood work and her CBC and BMP are unremarkable. Lactic acid is normal at 0.7. LFTs are normal. Lipase is negative. Patient was given Dilaudid and Zofran and is currently comfortable. Urinalysis is negative for infection. The patient has ultimately normal work-up I think she stable for discharge. Her vitals are normal. She recently had COVID and influenza so these are likely not the source of her confusion. She does not have any respiratory symptoms. Her daughter states that they have follow-up with a surgeon as an outpatient but she cannot remember the name of the surgeon. They have this information at home. Patient discharged home in stable condition. Impression: 1. Abdominal pain 2. Left inguinal hernia 3. Generalized weakness Lab Data Attestation: I reviewed the patient's lab results. Labs: Laboratory Results - last 24 hr 09/25/22 09/25/22 09/25/22 18:37 18:37 20:00 WBC 8.9 RBC 4.70 Hgb 13.4 Hct 42.5 MCV 90.4 MCH 28.5 MCHC 31.5 L RDW Std Deviation 42.5 RDW Coeff of Brady 12.9 Plt Count 290 MPV 9.8 Immature Gran % (Auto) 0.500 Neut % (Auto) 60.9 Lymph % (Auto) 26.7 [place] % (Auto) 10.5 H Eos % (Auto) 0.8 Baso % (Auto) 0.6 Absolute Neuts (auto) 5.4 Absolute Lymphs (auto) 2.37 Nucleated RBC % 0 Sodium 144 Potassium 4.1 Chloride 111 H Carbon Dioxide 29.0 Anion Gap 4 L BUN 24 H Creatinine 1.01 Estim Creat Clear Calc 40.42 Est GFR (MDRD) Af Amer 69 Est GFR (MDRD) Non-Af 57 L BUN/Creatinine Ratio 23.8 H Glucose 94 Lactic Acid 0.7 Calcium 9.0 Total Bilirubin 0.60 AST 33 ALT 45 Alkaline Phosphatase 95 Total Protein 7.4 Albumin 3.8 Globulin 3.6 Albumin/Globulin Ratio 1.1 Lipase 293 Urine Color Urine Clarity Urine pH Ur Specific [place] Urine Protein Urine Glucose (UA) Urine Ketones Urine Occult Blood Urine Nitrite Urine Bilirubin Urine Urobilinogen Ur Leukocyte Esterase Urine RBC Urine WBC Ur Squamous Epith Cells Urine Bacteria Urine Mucus 09/25/22 21:25 WBC RBC Hgb Hct MCV MCH MCHC RDW Std Deviation RDW Coeff of [place] Plt Count MPV Immature Gran % (Auto) Neut % (Auto) Lymph % (Auto) [place] % (Auto) Eos % (Auto) Baso % (Auto) Absolute Neuts (auto) Absolute Lymphs (auto) Nucleated RBC % Sodium Potassium Chloride Carbon Dioxide Anion Gap BUN Creatinine Estim Creat Clear Calc Est GFR (MDRD) Af Amer Est GFR (MDRD) Non-Af BUN/Creatinine Ratio Glucose Lactic Acid Calcium Total Bilirubin AST ALT Alkaline Phosphatase Total Protein Albumin Globulin Albumin/Globulin Ratio Lipase Urine Color Yellow Urine Clarity Clear Urine pH 7.0 Ur Specific [place] 1.010 Urine Protein Negative Urine Glucose (UA) Normal Urine Ketones Negative Urine Occult Blood 10 H Urine Nitrite Negative Urine Bilirubin Negative Urine Urobilinogen Normal Ur Leukocyte Esterase Negative Urine RBC 0-5 SEEN Urine WBC 0 SEEN Ur Squamous Epith Cells 0-5 SEEN Urine Bacteria 0 SEEN Urine Mucus 0 SEEN Radiography Diagnostic Testing: Clinical Impression(s) from Imaging Studies Brain CT 09/25/22 19:47 IMPRESSION: There are no acute intracranial findings. Electronically Signed: Rashard Raya MD at 21:25 EST , Abdomen/Pelvis CT 09/25/22 19:48 IMPRESSION: (NOT LISTED IN ORDER OF SIGNIFICANCE) Left inguinal hernia containing fluid. Non obstructive 3.4mm right renal parenchymal stones. Other findings as above. Electronically Signed: Rashard Raya MD at 21:28 EST , Discharge Plan Triage Chief Complaint: Abd Pain ED Provider: Tre Langston Dx/Rx/DC Orders Prescriptions: No Action gabapentin 100 mg capsule 300 mg PO QHS lisinopril 20 MG tablet 20 mg PO QHS omeprazole 20 mg capsule,delayed release(DR/EC) 20 mg PO BID acetaminophen 500 MG tablet 500 - 1,000 mg PO Q6H PRN PRN (Reason: Pain 1-10 Or Fever) Primary Care Provider: Sudarshan Galarza Referrals: Sudarshan Galarza MD [Primary Care Provider] -
[2022-09-25] MEDS: 0.9% Normal Saline 1,000 ML 1000 ML IV (20:00)
[2022-09-25] MEDS: Ondansetron 4 MG/2 ML Vial IV (20:01)
[2022-09-25] MEDS: HYDROmorphone 0.5 MG/0.5 ML SYRINGE IV (20:01)
[2022-09-25 20:02] VITALS: BP 140/81; PULSE 88; RESP 20; O2SAT 95
[2022-09-25 20:13] LABS: Absolute Lymphocyte Count 2.37 X10^3/uL (0.83-4.51); Absolute Neutrophil Count 5.4 X10^3/uL (2.0-7.7); Basophil# 0.05 X10^3/uL; Basophil% 0.6 % (0-1); Eosinophil# 0.07 X10^3/uL; Eosinophils% 0.8 % (0-5); Hematocrit 42.5 % (37-47); Hemoglobin 13.4 g/dL (12.0-15.0); Lymphocyte # 2.37 X10^3/ul (0.83-4.51); Lymphocyte % 26.7 % (19-41); Mean Corp Hgb Conc 31.5 g/dL (32-36); Mean Corpuscular Hgb 28.5 pg (27.0-32.0); Mean Corpuscular Volume 90.4 fL (81-99); Mean Platelet Vol. 9.8 fl (6.2-12.0); Monocyte# 0.93 X10^3/uL; Monocyte% 10.5 % (0-10); NRBC Flagged by Analyzer 0 % (0-5); Neutrophil # 5.42 X10^3/uL (2.7-7.7); Neutrophil % 60.9 % (47-70); Platelet Count 290 K/mm3 (150-450); RBC Distribution Width CV 12.9 % (11.6-14.6); RBC Distribution Width SD 42.5 fl (35.1-43.9); White Blood Count 8.9 K/mm3 (4.4-11.0)
[2022-09-25 20:34] LABS: Lactic Acid 0.7 mmol/L (0.4-1.9)
[2022-09-25 20:48] LABS: ALB/GLOB Ratio 1.1 RATIO (0.9-2.4); AST(SGOT) 33 U/L (15-37); Alanine Aminotransfer ALT/SGPT 45 U/L (13-56); Albumin, Serum 3.8 g/dL (3.2-5.0); Alkaline Phosphatase 95 U/L (45-117); Anion Gap 4 (5-15); BUN 24 mg/dL (7-18); BUN/Creat Ratio 23.8 RATIO (10-20); Chloride 111 mmol/L (98-107); Creatinine, Serum 1.01 mg/dL (0.55-1.02); EST Glomerular Filtration Rate 57 mL/min (>60); Est Glom Filt Rate - Afr Amer 69 mL/min (>60); Estimated Creatinine Clearance 40.42 ml/min; Globulin 3.6 g/dL (2.2-4.2); Glucose 94 mg/dL (74-106); Lipase 293 U/L (73-393); Potassium 4.1 mmol/L (3.5-5.1); Protein, Total 7.4 g/dL (6.4-8.2); Sodium Level 144 mmol/L (136-145)
[2022-09-25 21:34] LABS: Bacteria 0 SEEN /hpf (None Seen); Mucous, Urine 0 SEEN /hpf (<or=2+); White Blood Cells 0 SEEN /hpf (0-5)
[2022-09-25 21:35] LABS: Color, Urine Yellow (Yellow); Glucose, Dipstick Normal (Normal); Ketone-Dipstick Negative (Negative); Leukocyte Esterase-Dipstick Negative /ul (Negative); Nitrite-Dipstick Negative (Negative); Occult Blood-Urine 10 /ul (Negative); Protein-Dipstick Negative (Negative); Urine Bilirubin Dipstick Negative (Negative); Urine Clarity Clear (Clear); Urine Urobilinogen Normal (Normal)
[2022-09-25 21:44] LABS: Red Blood Cells-Urine 0-5 SEEN /hpf (0-5); Squamous Epithelial Cells - UA 0-5 SEEN /hpf (5-10)
[2022-09-25 22:05] VITALS: BP 125/78; PULSE 79; RESP 16; O2SAT 93
== END 2022-09-25 22:07 | disposition home or self-care (01) ==
PROVIDERS: Emergency Provider Student in an Organized Health Care Education/Training Program; PCP Family Medicine; Visit Provider Student in an Organized Health Care Education/Training Program
DX: R10.9 Unspecified abdominal pain (principal); K40.90 Unilateral inguinal hernia, without obstruction or gangrene, not specified as recurrent; R53.1 Weakness; I10 Essential (primary) hypertension; E78.5 Hyperlipidemia, unspecified; R41.0 Disorientation, unspecified; Z86.16 Personal history of COVID-19
CPT/HCPCS: 70450; 74177; 80053; 81001; 83605; 83690; 85025; 96361; 96374; 96375; 99285; J7030; Q9967; A4216; J2405

== ENCOUNTER 2022-10-28 17:30 | Emergency (ER) | payer MEDICARE, BC, SELFPAY ==
[2022-10-28 17:31] VITALS: BP 172/100; PULSE 90; RESP 18; TEMP 36.4; O2SAT 99; BMI 23.0
--- NOTE | 2022-10-28 17:57 | CT_ITS ---
INDICATION: Hernia. History of ventral hernia repair in 2012. History of cholecystectomy. Hypertension. EXAMINATION: CT ABDOMEN AND PELVIS WITH CONTRAST - CT Abdomen And Pelvis W/ Contrast Injection TECHNIQUE: Helically acquired images were obtained of the abdomen and pelvis following IV contrast. A radiation dose optimization technique was used for this scan. IV Contrast dosage and agent: 85 mL of Isovue 370 Oral contrast: None. COMPARISON: June 26, 2022. FINDINGS: LOWER CHEST: Lung bases are clear. No cardiomegaly or pericardial effusion. LIVER: Homogeneous. No focal mass. GALLBLADDER AND BILIARY TREE: Status post cholecystectomy. No intra- or extrahepatic biliary ductal dilation. PANCREAS: No focal cystic or solid mass. SPLEEN: Normal size without focal cystic or solid mass. ADRENAL GLANDS: No nodules. KIDNEYS AND URETERS: Right kidney is normal in size contour and enhancement. There are small cysts lower pole. There is a nonobstructing renal calculi. The largest measures 4 mm. Left kidney is smaller in size with slightly decreased degree of enhancement. It is otherwise unremarkable. PERITONEUM: No ascites or free air. No other fluid collection. BOWEL: Normal stomach. Normal small intestine. Air and feces is seen throughout the colon without mass or obstruction. The appendix is not visualized. LYMPH NODES: No enlarged mesenteric or retroperitoneal lymph nodes. VESSELS: Mild atherosclerotic tortuosity of the thoracic aorta without aneurysm or dissection. Normal IVC. URINARY BLADDER: Unremarkable. REPRODUCTIVE ORGANS: Normal uterus. No adnexal mass. ABDOMINAL WALL: Question small left inguinal hernia. The abdominal wall is otherwise unremarkable. BONES: Degenerative changes of the lumbar spine with dextroscoliosis. Degenerative changes bilateral hips. CT/Abdomen/Pelvis W IV Cont ONLY IMPRESSION: 1. No evidence of acute intra-abdominal or pelvic process. 2. Question small left inguinal hernia unchanged from the prior study. 3. Small left kidney with slightly decreased contrast enhancement when compared to the right. This appears to be a stable finding. 4. Stable right renal calculi and cortical cysts. Electronically Signed: Luis Enrique Phan DO at 19:34 EST ,
--- NOTE | 2022-10-28 17:59 | EDS_ITS ---
HPI HPI - GI History of Present Illness Chief Complaint: Abd Pain Informant: patient and family Narrative Narrative: Patient presents with left inguinal hernia pain. She has been having this for quite some time. Months or a year ago she was set to have it repaired but she got COVID and then influenza. She was seen here not long ago for some pain. This was reduced. She went home. She did follow-up with Dr. Elizabeth. She was supposed to call today to get a follow-up appointment for actual surgical time. Something happened with losing the number. Also, today, the hernia came out and they have had trouble getting it back in. Its been waxing and waning discomfort. It is isolated to the left hernia area and does radiate toward the back but she states that that is typical when the hernia comes out. She has had no nausea vomiting fevers or chills. No change in bowel habits or blood in the stool. A family member pressed on it and it hurt and did not go back in so they sent her in here. She is not on any blood thinners. [facility] Medical History Dehydration Essential hypertension Fibromyalgia Gastroenteritis GERD (gastroesophageal reflux disease) Hyperlipidemia Irritable bowel syndrome with both constipation and diarrhea Lumbar radiculopathy Nausea vomiting and diarrhea Non-smoker Parkinsons disease Renal calculus, right Scoliosis of thoracolumbar spine Situational depression Thoracic radiculopathy due to degenerative joint disease of spine Home Medications lisinopril 20 mg tablet 20 mg PO QHS blood pressure 04/09/17 [History Last Taken 05/14/22] omeprazole 20 mg capsule,delayed release 20 mg PO BID GERD 09/09/20 [History Last Taken 05/14/22] gabapentin 100 mg capsule 300 mg PO QHS 10/15/20 [History Last Taken 05/14/22] acetaminophen 500 mg tablet 500 - 1,000 mg PO Q6H PRN PRN Pain 1-10 Or Fever 01/10/21 [History Last Taken Unknown] Allergy/AdvReac Type Severity Reaction Status Date / Time nitrofurantoin Allergy Hives Verified 10/28/22 17:33 [From Macrobid] hydrocodone [From Vicodin] AdvReac Vomiting Verified 10/28/22 17:33 morphine AdvReac Vomiting Verified 10/28/22 17:33 pregabalin [From Lyrica] AdvReac Vomiting Verified 10/28/22 17:33 Family History Mother Dementia Father No cardiac disease Surgical History H/O ventral hernia repair History of cataract surgery History of cholecystectomy Hx laparoscopic cholecystectomy Social History Smoking Status: Never smoker Electronic Cigarette Use: not used second hand exposure: No alcohol intake: never substance use type: does not use ROS ROS ED Constitutional Constitutional ED: Denies chills, fever(s) or sweats Cardiovascular Cardiovascular: Denies chest pain Respiratory/Chest Respiratory/Chest: Denies cough or dyspnea Gastrointestinal Gastrointestinal: Reports abdominal pain; Denies diarrhea, nausea or vomiting Genitourinary Genitourinary ED: Denies dysuria, hematuria or urinary frequency Musculoskeletal Musculoskeletal: Reports back pain; Denies arthralgias Neurologic Neurologic: Denies headache(s) Endocrine Endocrinology: Denies polydipsia or polyuria Hematologic/Lymphatic Hematologic/Lymphatic: Denies easy bleeding or easy bruising Allergic/Immunologic Allergic/Immunologic ED: Denies urticaria EXAM Physical Exam Const Vital Signs: 10/28/22 17:31 Temperature 97.5 F L Temperature Source Temporal Pulse Rate 90 Respiratory Rate 18 Blood Pressure 172/100 H Blood Pressure Mean 124 Pulse Ox 99 Oxygen Delivery Method Room Air Positive well nourished and well developed Constitutional Narrative: Patient is lying in bed. She is crying currently but that is related to an IV being placed. General Appearance ED: well developed HEENT Reports moist mucous membranes HEENT Narrative: Mucous membranes do still seem moist. Eyes EOMs intact bilaterally Neck no JVD Resp normal respiratory effort and clear to auscultation bilaterally Cardio regular rate and regular rhythm GI GI Narrative: Overall abdomen is soft nondistended and has normal bowel sounds. There is no tenderness in the abdomen itself. She does have some tenderness down near the left inguinal area. Left inguinal area does reveal a full area about 3 x 5 cm in size. This is consistent with inguinal hernia. Pressing on the top does not move this. However, I am able to lift up on the sides compress it and the hernia went back in with almost no pressure at all. I really lifted up the edges rather than applying any pressure. This did help her symptoms. She states it is much better and if it would stay in like that that would be good. Back/Spine no CVA tenderness Extremity General Extremety ED: Negative for edema General Extremity: Negative for edema Neuro Neuro Narrative: Patient seems very distracted. She is having pain from the IV and is just very concerned about the issues. Sometimes it is hard for her to focus. Evidently this is not new or different behavior. Psych Psych Narrative: Mildly distracted Skin no wounds Skin Narrative: No skin changes erythema duskiness or visual changes over the area or in the region of the hernia. MDM MDM MDM Narrative Medical decision making narrative: My independent interpretation of the CT of the abdomen does not show any notable hernia. There is some indication of her prior cholecystectomy. There is minimal intraperitoneal fat but I see no stranding or mass. Increased stool throughout but she really is not having symptoms of constipation and states she is moving her bowels. The final reading by radiology also shows multiple chronic changes but no sign of incarcerated or strangulated hernia. I reviewed her blood work showed a normal CBC including white count hemoglobin and platelets. Electrolytes are normal other than mild elevation in the BUN and creatinine. Calcium and glucose are normal. I did review prior labs done in our system at prior outpatient visits that show no marked interval change. Patient has no urinary symptoms fevers or chills. I do not think we will acquire urinalysis. I rechecked the patient. She is talking comfortably with her daughter. Her symptoms are resolved. Repeat exam shows no mass or tenderness. Her overall abdominal exam is benign. Although this patient has history of hernia and has had multiple episodes of it being transiently incarcerated, it reduced quite easily. I really just put pressure on the side and did not even push it back in and it reduced spontaneously after I provided support. Her work-up is negative her symptoms are gone. I think she can follow-up with her surgeon. Lab Data Attestation: I reviewed the patient's lab results. Labs: Laboratory Results - last 24 hr 10/28/22 10/28/22 17:55 17:55 WBC 6.2 RBC 4.88 Hgb 13.9 Hct 44.9 MCV 92.0 MCH 28.5 MCHC 31.0 L RDW Std Deviation 44.6 H RDW Coeff of Brady 13.1 Plt Count 236 MPV 9.7 Immature Gran % (Auto) 0.300 Neut % (Auto) 61.2 Lymph % (Auto) 26.5 [place] % (Auto) 9.8 Eos % (Auto) 1.6 Baso % (Auto) 0.6 Absolute Neuts (auto) 3.8 Absolute Lymphs (auto) 1.65 Nucleated RBC % 0 Sodium 143 Potassium 4.4 Chloride 112 H Carbon Dioxide 27.0 Anion Gap 4 L BUN 21 H Creatinine 1.11 H Estim Creat Clear Calc 36.78 Est GFR (MDRD) Af Amer 62 Est GFR (MDRD) Non-Af 51 L BUN/Creatinine Ratio 18.9 Glucose 95 Calcium 8.9 Radiography Diagnostic Testing: Clinical Impression(s) from Imaging Studies Abdomen/Pelvis CT 10/28/22 17:57 IMPRESSION: 1. No evidence of acute intra-abdominal or pelvic process. 2. Question small left inguinal hernia unchanged from the prior study. 3. Small left kidney with slightly decreased contrast enhancement when compared to the right. This appears to be a stable finding. 4. Stable right renal calculi and cortical cysts. Electronically Signed: Luis Enrique Phan DO at 19:34 EST Reading Location ID and State: [address] [place] [address] Tel [phone], Service support , Discharge Plan Triage Chief Complaint: Abd Pain ED Provider: David Ortega Dx/Rx/DC Orders Clinical Impression: Hernia, inguinal, left Instructions: ED Hernia (Adult) Prescriptions: No Action gabapentin 100 mg capsule 300 mg PO QHS lisinopril 20 MG tablet 20 mg PO QHS omeprazole 20 mg capsule,delayed release(DR/EC) 20 mg PO BID acetaminophen 500 MG tablet 500 - 1,000 mg PO Q6H PRN PRN (Reason: Pain 1-10 Or Fever) Primary Care Provider: Sudarshan Galarza Referrals: Karthikeyan Elizabeth MD [Med Staff - Active Staff] - As soon as possible Sudarshan Galarza MD [Primary Care Provider] - Disposition Disposition: Home, Self Care
[2022-10-28 18:24] LABS: Absolute Lymphocyte Count 1.65 X10^3/uL (0.83-4.51); Absolute Neutrophil Count 3.8 X10^3/uL (2.0-7.7); Basophil# 0.04 X10^3/uL; Basophil% 0.6 % (0-1); Eosinophils% 1.6 % (0-5); Hematocrit 44.9 % (37-47); Hemoglobin 13.9 g/dL (12.0-15.0); Lymphocyte # 1.65 X10^3/ul (0.83-4.51); Lymphocyte % 26.5 % (19-41); Mean Corpuscular Hgb 28.5 pg (27.0-32.0); Mean Platelet Vol. 9.7 fl (6.2-12.0); Monocyte# 0.61 X10^3/uL; Monocyte% 9.8 % (0-10); NRBC Flagged by Analyzer 0 % (0-5); Neutrophil % 61.2 % (47-70); Platelet Count 236 K/mm3 (150-450); RBC Distribution Width CV 13.1 % (11.6-14.6); RBC Distribution Width SD 44.6 fl (35.1-43.9); Red Blood Count 4.88 M/mm3 (4.2-5.4); White Blood Count 6.2 K/mm3 (4.4-11.0)
[2022-10-28 18:59] LABS: Anion Gap 4 (5-15); BUN 21 mg/dL (7-18); BUN/Creat Ratio 18.9 RATIO (10-20); Calcium,Total 8.9 mg/dL (8.5-10.1); Chloride 112 mmol/L (98-107); Creatinine, Serum 1.11 mg/dL (0.55-1.02); EST Glomerular Filtration Rate 51 mL/min (>60); Est Glom Filt Rate - Afr Amer 62 mL/min (>60); Estimated Creatinine Clearance 36.78 ml/min; Glucose 95 mg/dL (74-106); Potassium 4.4 mmol/L (3.5-5.1); Sodium Level 143 mmol/L (136-145)
[2022-10-28 19:31] VITALS: RESP 16
[2022-10-28 20:51] VITALS: RESP 16
== END 2022-10-28 21:03 | disposition home or self-care (01) ==
PROVIDERS: Emergency Provider Emergency Medicine; PCP Family Medicine; Visit Provider Emergency Medicine
DX: K40.90 Unilateral inguinal hernia, without obstruction or gangrene, not specified as recurrent (principal); E78.5 Hyperlipidemia, unspecified; I10 Essential (primary) hypertension; Z86.16 Personal history of COVID-19; K21.9 Gastro-esophageal reflux disease without esophagitis
CPT/HCPCS: 74177; 80048; 85025; 99282; A4216

== ENCOUNTER 2022-11-15 02:46 | Emergency (ER) | payer MEDICARE, BC, SELFPAY ==
[2022-11-15 02:47] VITALS: BP 181/98; PULSE 83; RESP 16; TEMP 36.4; O2SAT 98; BMI 22.4
--- NOTE | 2022-11-15 02:54 | CT_ITS ---
EXAM: CT HEAD WITHOUT INTRAVENOUS CONTRAST CLINICAL INDICATION: fall TECHNIQUE: Multiple axial images were obtained of the head without intravenous contrast. CTDIvol = ( 44.99 ) mGy, DLP = ( 762.36 ) mGycm This CT exam was performed using one or more of the following dose reduction techniques: automated exposure control, adjustment of the mA and/or kV according to patient size, and/or use of iterative reconstruction technique. This report was created using [employer] report generation technology. COMPARISON: September 25, 2022 FINDINGS: BRAIN AND EXTRA-AXIAL SPACES: Diffuse parenchymal atrophy. Chronic ischemic small vessel white matter disease. No intra- or extra-axial hemorrhage. No evidence of acute infarct. No intracranial mass or mass effect. There is preservation of the pelayo/white matter interface. Posterior fossa structures are unremarkable. Ventricles are appropriate for age. No hydrocephalus. Basal cisterns are patent. BONES/JOINTS: Unremarkable. No discrete lytic or blastic abnormalities. SINUSES: Mild scattered paranasal sinus mucosal thickening. MASTOID AIR CELLS: Unremarkable. Clear. ORBITS: Visualized globes, extraocular muscles, optic nerves and retrobulbar fat appear unremarkable. CT/Brain/Head without Contrast IMPRESSION: No acute findings in the head/brain. Age-related changes. [employer]ID[employer] was utilized to assist in identifying pertinent positive findings. Electronically Signed: Gabriele Mckeon MD at 4:09 EST ,
--- NOTE | 2022-11-15 02:54 | CT_ITS ---
EXAM: CT CERVICAL SPINE WITHOUT INTRAVENOUS CONTRAST CLINICAL INDICATION: polytrauma TECHNIQUE: Helically acquired images were obtained of the cervical spine without intravenous contrast. 2D reformatted images were reviewed. CTDIvol = ( 12.54 ) mGy, DLP = ( 245.04 ) mGycm This CT exam was performed using one or more of the following dose reduction techniques: automated exposure control, adjustment of the mA and/or kV according to patient size, and/or use of iterative reconstruction technique. This report was created using [employer] report [employer] technology. COMPARISON: None. FINDINGS: VERTEBRAE: Unremarkable. No traumatic subluxation. No discrete lytic or blastic abnormality. Normal craniocervical junction and cervicothoracic junction. No evidence of acute or healing fracture or malalignment. DISCS/SPINAL CANAL/NEURAL FORAMINA: Multilevel spine degenerative changes. No critical central canal stenosis or apical pneumothorax. SOFT TISSUES: Unremarkable. No prevertebral soft tissue swelling. VASCULATURE: Atherosclerotic calcifications of the internal carotid arteries of the neck. LYMPH NODES: Unremarkable. No cervical adenopathy. LUNG APICES: Unremarkable as visualized. Clear. CT/Spine Cervical without Contras IMPRESSION: 1. No evidence of acute or healing fracture or malalignment. [employer] was utilized to assist in identifying pertinent positive findings. Electronically Signed: Gabriele Mckeon MD at 4:13 EST ,
--- NOTE | 2022-11-15 02:54 | CT_ITS ---
EXAM: CT CHEST, ABDOMEN AND PELVIS WITHOUT INTRAVENOUS CONTRAST CLINICAL INDICATION: polytrauma TECHNIQUE: Helically acquired images were obtained of the chest, abdomen and pelvis without intravenous contrast. CTDIvol = ( 9.55 ) mGy, DLP = ( 789.44 ) mGycm This CT exam was performed using one or more of the following dose reduction techniques: automated exposure control, adjustment of the mA and/or kV according to patient size, and/or use of iterative reconstruction technique. This report was created using [employer] report [employer]ky technology. COMPARISON: None. FINDINGS: CHEST: LUNGS AND PLEURAL SPACES: Biapical scarring. No mass. No pneumothorax. No pleural effusion or pneumothorax. HEART: Unremarkable. Heart size is normal. No pericardial effusion. No significant coronary artery calcifications. MEDIASTINUM: Unremarkable. No mediastinal or hilar adenopathy. Esophagus is unremarkable. No hiatal hernia. THYROID: Unremarkable. No thyroid lesions. ABDOMEN: LIVER: Unremarkable. Homogeneous. GALLBLADDER AND BILE DUCTS: Unremarkable. No calcified gallstones. No gallbladder distention or wall edema. No intra- or extrahepatic biliary ductal dilation. PANCREAS: Unremarkable. No focal cystic mass. SPLEEN: Unremarkable. Normal size without focal cystic or solid mass. ADRENALS: Unremarkable. No nodules. KIDNEYS AND URETERS: Small nonobstructing right renal calyceal calculi, largest measuring 6 mm. No hydroureteronephrosis. No other renal abnormalities. Normal renal size and position. STOMACH AND BOWEL: Stool and gas within the colon. No colitis or diverticulitis or bowel obstruction. PELVIS: APPENDIX: No evidence of acute appendicitis. BLADDER: Unremarkable. REPRODUCTIVE: Unremarkable as visualized. No mass. CHEST, ABDOMEN and PELVIS: INTRAPERITONEAL SPACE: Unremarkable. No free air or free fluid. BONES/JOINTS: Degenerative changes of the pelvis and spine with no definite acute or healing fracture or malalignment. Rightward curvature of the thoracolumbar spine. No suspicious lytic or blastic abnormality. SOFT TISSUES: Unremarkable. No discrete abdominal or pelvic wall hernia. VASCULATURE: Unremarkable. Aorta is non-dilated. LYMPH NODES: Unremarkable. No adenopathy or any other remarkable masses. CT/CT Chest, Abd, Pelvis WO Cont IMPRESSION: 1. No acute trauma related pathology involving the chest, abdomen, and pelvis. 2. Small nonobstructing right renal calyceal calculi. 3. Ancillary findings as above with no other acute disease demonstrated. Electronically Signed: Gabriele Mckeon MD at 4:26 EST ,
--- NOTE | 2022-11-15 02:56 | EDS_ITS ---
HPI History of Present Illness Chief Complaint: Fall Informant: patient and family Narrative Narrative: Patient presented by private vehicle with grandson increasing pain. History of Parkinson's disease fibromyalgia she ambulates a cane and walker as needed. Rep orted fall today when her walker was not locked. Since then increasing pain everywhere. Cannot localize anything specific. Grandjarrell reports had hernia reduction in the ED this month he was not here concern worsening hernia. There are concerns of rib fractures. Patient currently on gabapentin. Reported that she has not prescribed anything else. Allergies to hydrocodone and morphine causing vomiting she is tolerated oxycodone from surgeries in the past. However report would only want half a dose. Denies nausea or vomiting. Prior similar symptoms: [facility] Medical History Dehydration Essential hypertension Fibromyalgia Gastroenteritis GERD (gastroesophageal reflux disease) Hyperlipidemia Irritable bowel syndrome with both constipation and diarrhea Lumbar radiculopathy Nausea vomiting and diarrhea Non-smoker Parkinsons disease Renal calculus, right Scoliosis of thoracolumbar spine Situational depression Thoracic radiculopathy due to degenerative joint disease of spine Home Medications lisinopril 20 mg tablet 20 mg PO QHS blood pressure 04/09/17 [History Last Taken 05/14/22] omeprazole 20 mg capsule,delayed release 20 mg PO BID GERD 09/09/20 [History Last Taken 05/14/22] gabapentin 100 mg capsule 300 mg PO QHS 10/15/20 [History Last Taken 05/14/22] acetaminophen 500 mg tablet 500 - 1,000 mg PO Q6H PRN PRN Pain 1-10 Or Fever 01/10/21 [History Last Taken Unknown] ondansetron 4 mg disintegrating tablet 4 mg PO Q8H PRN PRN Nausea #10 tabs 11/15/22 [Rx Last Taken Unknown] oxycodone-acetaminophen 5 mg-325 mg tablet 0.5 tab PO Q6H PRN PRN Pain 6 days #12 TABLETS 11/15/22 [Rx Last Taken Unknown] Allergy/AdvReac Type Severity Reaction Status Date / Time nitrofurantoin Allergy Hives Verified 11/15/22 02:52 [From Macrobid] hydrocodone [From Vicodin] AdvReac Vomiting Verified 11/15/22 02:52 morphine AdvReac Vomiting Verified 11/15/22 02:52 pregabalin [From Lyrica] AdvReac Vomiting Verified 11/15/22 02:52 Family History Mother Dementia Father No cardiac disease Surgical History H/O ventral hernia repair History of cataract surgery History of cholecystectomy Hx laparoscopic cholecystectomy Social History Smoking Status: Never smoker Electronic Cigarette Use: not used second hand exposure: No alcohol intake: never substance use type: does not use ROS ROS ED Constitutional Constitutional ED: Denies chills, fever(s) or sweats Eyes Eyes: Denies change in vision ENT ENT ED: Denies dysphagia or sore throat Cardiovascular Cardiovascular: Denies chest pain, leg edema, palpitations or racing heartbeat Respiratory/Chest Respiratory/Chest: Denies cough, dyspnea or dyspnea on exertion Gastrointestinal Gastrointestinal: Denies abdominal pain, diarrhea, nausea or vomiting Genitourinary Genitourinary ED: Denies dysuria, hematuria or urinary frequency Musculoskeletal Musculoskeletal: Reports arthralgias and myalgias; Denies back pain, extremity pain or neck pain Integumentary Denies rash or wounds Neurologic Neurologic: Denies headache(s), paresthesias or weakness EXAM Physical Exam Const Vital Signs: 11/15/22 02:47 11/15/22 03:22 Temperature 97.6 F L Temperature Source Temporal Pulse Rate 83 Respiratory Rate 16 Respiratory Effort Normal Respiratory Depth Normal Respiratory Pattern Normal Blood Pressure 181/98 H Blood Pressure Mean 125 Pulse Ox 98 98 Oxygen Delivery Method Room Air Room Air Positive well nourished and well developed Constitutional Narrative: Tearful, redirectable, GCS 15. General Appearance ED: well developed and NAD HEENT Reports moist mucous membranes normocephalic and atraumatic Eyes PERRL, EOMs intact bilaterally and conjunctivae normal General Eye ED: Yes normal appearance of both eyes Neck no lymphadenopathy and supple General: Negative for tenderness Chest Wall Chest Narrative: Pain with palpation of the chest no crepitus. Chest: Negative for tenderness Resp normal respiratory effort and normal air movement Effort and Inspection: symmetric chest movement; Negative for respiratory distress Cardio regular rate, regular rhythm and no murmurs Peripheral Pulses: pulses 2+ throughout GI normal to inspection, nondistended, normoactive bowel sounds GI Narrative: Lower abdominal tenderness on palpation there is no hernia palpated. Palpation: Negative for guarding or rebound tenderness present Back/Spine no CVA tenderness Back/Spine Narrative: Kyphosis to the thoracic spine, generalized tenderness there is no step-offs. No ecchymosis. Extremity normal to inspection and full ROM Extremity Narrative: No deformities of the extremities x4 negative logroll bilaterally. General Extremety ED: Negative for edema or tenderness General Extremity: Negative for edema Neuro oriented x3 and no sensory deficits noted Sensorium / Orientation: awake and alert Skin no rashes or lesions noted and no wounds MDM MDM MDM Narrative Medical decision making narrative: Patient vital signs stable no focal deficits. GCS is 15. Reporting generalized pain throughout cannot pinpoint. Family is concerned of rib fractures. Concerned of hernia, however cannot palpate current hernia. Discussed to rule out fractures will be CAT scan chest abdomen pelvis which they agree. With her fall head and neck also obtained. She is treated with oxycodone for which she is tolerated at 2.5 mg. Differential fibromyalgia flare versus contusions versus fractures. With fall also rule out head injuries. 0300: After already meds reported patient got nauseated. She is ordered for Zofran ODT. Records were reviewed she was seen little over 2 weeks ago for an inguinal hernia that was easily reduced on the left side. It was visualized measuring 5 cm from previous doctor could not palpate 1 on current exam. 0410: Patient much more comfortable on reevaluation. CT brain and cervical spine reviewed by myself and read by radiology no acute findings. CT chest abdomen pelvis was reviewed by myself cannot appreciate any gross abnormalities. Was noted scoliosis degenerative changes the lumbar spine. pending final read at this time. 0435: Final read also negative for any acute findings. Patient provided meds to beds for Percocet to use as needed she is on MiraLAX at home daily. Discussed side effects of constipation. Prescription for Zofran. They will follow-up with her PCP for further pain management. In regards to her previous visits for her hernia none was found on CT she has plan surgery on the th of next month per her grandson. Preop is next week. They will keep her outpatient plans for intervention. Radiography Diagnostic Testing: Clinical Impression(s) from Imaging Studies Brain CT 11/15/22 02:54 IMPRESSION: No acute findings in the head/brain. Age-related changes. AIDOC was utilized to assist in identifying pertinent positive findings. Electronically Signed: Gabriele Mckeon MD at 4:09 EST , Cervical Spine CT 11/15/22 02:54 IMPRESSION: 1. No evidence of acute or healing fracture or malalignment. AIDOC was utilized to assist in identifying pertinent positive findings. Electronically Signed: Gabriele Mckeon MD at 4:13 EST , Chest/Abdomen/Pelvis CT 11/15/22 02:54 IMPRESSION: 1. No acute trauma related pathology involving the chest, abdomen, and pelvis. 2. Small nonobstructing right renal calyceal calculi. 3. Ancillary findings as above with no other acute disease demonstrated. Electronically Signed: Gabriele Mckeon MD at 4:26 EST , Discharge Plan Triage Chief Complaint: Fall ED Provider: Kyle Suarez Dx/Rx/DC Orders Clinical Impression: Fibromyalgia, Parkinsons disease, Fall Instructions: ED Chronic Pain, ED Fall with Uncertain Cause, ED Fibromyalgia Prescriptions: New oxycodone-acetaminophen [oxycodone-acetaminophen] 5-325 mg tablet 0.5 tab PO Q6H PRN PRN (Reason: Pain) 6 Days Qty: 12 0RF ondansetron [ondansetron] 4 mg tablet,disintegrating 4 mg PO Q8H PRN PRN (Reason: Nausea) Qty: 10 0RF No Action gabapentin 100 mg capsule 300 mg PO QHS lisinopril 20 MG tablet 20 mg PO QHS omeprazole 20 mg capsule,delayed release(DR/EC) 20 mg PO BID acetaminophen 500 MG tablet 500 - 1,000 mg PO Q6H PRN PRN (Reason: Pain 1-10 Or Fever) Primary Care Provider: Sudarshan Galarza Referrals: Sudarshan Galarza MD [Primary Care Provider] - 3-5 Days Activity Restrictions/Additional Instructions: May use the oxycodone as prescribed. Continue MiraLAX at home for stool softeners as this can cause constipation. Follow-up with your doctor for continued management. Disposition Disposition: Home, Self Care
[2022-11-15] MEDS: Ondansetron ODT 4 MG Tablet PO (03:10)
[2022-11-15] MEDS: oxyCODONE 5 MG Tablet 2.5 MG PO (03:20)
[2022-11-15 03:22] VITALS: O2SAT 98
== END 2022-11-15 05:07 | disposition home or self-care (01) ==
PROVIDERS: Emergency Provider Emergency Medicine; PCP Family Medicine; Visit Provider Emergency Medicine
DX: M79.7 Fibromyalgia (principal); G20 Parkinson's disease; E78.5 Hyperlipidemia, unspecified; I10 Essential (primary) hypertension; K21.9 Gastro-esophageal reflux disease without esophagitis
CPT/HCPCS: 70450; 71250; 72125; 74176; 99282; A4216

== ENCOUNTER 2022-12-02 19:17 | Emergency (ER) | payer MEDICARE, BC, SELFPAY ==
[2022-12-02 19:23] VITALS: BP 168/93; PULSE 102; RESP 20; TEMP 37.4; O2SAT 95; BMI 25.8
--- NOTE | 2022-12-02 19:49 | EDS_ITS ---
HPI HPI - GI History of Present Illness Chief Complaint: Abd Pain Informant: patient and family Narrative Narrative: History is through patient and daughter. Patient states she is just too sick and cannot take this anymore. Therefore, most history is actually through her daughter. This patient evidently had a left inguinal herniorrhaphy through abdominal approach today at [facility] by an unknown surgeon. She went into surgery about 2:00. It sounds like she went home and around 530 or 6. She has had nausea and pain ever since. They did prescribe pain meds that sounds like it was likely oxycodone. Nothing was prescribed for nausea so they called and they did get Zofran. Patient has taken these but is still having symptoms. She states the symptoms started in the recovery room and have never abated. She is urinated but no bowel movements. She has not vomited. No fevers. I am not able to access information at another hospital today. [facility] Medical History Dehydration Essential hypertension Fibromyalgia Gastroenteritis GERD (gastroesophageal reflux disease) Hyperlipidemia Irritable bowel syndrome with both constipation and diarrhea Lumbar radiculopathy Nausea vomiting and diarrhea Non-smoker Parkinsons disease Renal calculus, right Scoliosis of thoracolumbar spine Situational depression Thoracic radiculopathy due to degenerative joint disease of spine Home Medications lisinopril 20 mg tablet 20 mg PO QHS blood pressure 04/09/17 [History Last Taken 05/14/22] omeprazole 20 mg capsule,delayed release 20 mg PO BID GERD 09/09/20 [History Last Taken 05/14/22] gabapentin 100 mg capsule 300 mg PO QHS 10/15/20 [History Last Taken 05/14/22] acetaminophen 500 mg tablet 500 - 1,000 mg PO Q6H PRN PRN Pain 1-10 Or Fever 01/10/21 [History Last Taken Unknown] ondansetron 4 mg disintegrating tablet 4 mg PO Q8H PRN PRN Nausea #10 tabs 11/15/22 [Rx Last Taken Unknown] oxycodone-acetaminophen 5 mg-325 mg tablet 0.5 tab PO Q6H PRN PRN Pain 3 days #12 TABLETS 11/15/22 [Rx Last Taken Unknown] Allergy/AdvReac Type Severity Reaction Status Date / Time nitrofurantoin Allergy Hives Verified 12/02/22 19:27 [From Macrobid] hydrocodone [From Vicodin] AdvReac Vomiting Verified 12/02/22 19:27 morphine AdvReac Vomiting Verified 12/02/22 19:27 pregabalin [From Lyrica] AdvReac Vomiting Verified 12/02/22 19:27 Family History Mother Dementia Father No cardiac disease Surgical History H/O ventral hernia repair History of cataract surgery History of cholecystectomy Hx laparoscopic cholecystectomy Social History Smoking Status: Never smoker Electronic Cigarette Use: not used second hand exposure: No alcohol intake: never substance use type: does not use ROS ROS ED Constitutional Constitutional ED: Denies chills or fever(s) ENT ENT ED: Denies sore throat Cardiovascular Cardiovascular: Denies chest pain, palpitations or racing heartbeat Respiratory/Chest Respiratory/Chest: Denies cough or dyspnea Gastrointestinal Gastrointestinal: Reports abdominal pain and nausea; Denies constipation, diarrhea, melena or vomiting Genitourinary Genitourinary ED: Denies dysuria or hematuria Musculoskeletal Musculoskeletal: Denies back pain or myalgias Neurologic Neurologic: Denies weakness Endocrine Endocrinology: Denies polyphagia or polyuria Hematologic/Lymphatic Hematologic/Lymphatic: Denies easy bleeding or easy bruising Allergic/Immunologic Allergic/Immunologic ED: Denies urticaria EXAM Physical Exam Narrative Exam Narrative: Patient is awake and alert but does not speak a lot. She states she just hurts too much and is too nauseated. She is holding an emesis bag but it is currently empty. HEENT: Mucous membranes do look reasonably moist. No sinus tenderness Neck shows no JVD Lungs are clear bilaterally. Breathing is easy and unlabored. Saturations are 95% on room air showing no hypoxia. Heart is regular with a rate about 100. I hear no murmur. Abdomen has 3 port sites and the bandages are clean and dry. She does have bowel sounds that seem to be normal. There is mild nonfocal tenderness diffusely. No rebound or guarding. Left inguinal area where the hernia actually existed does not show tenderness or swelling. There are no incisions in this area. no significant suprapubic tenderness. No CVA tenderness Const Vital Signs: 12/02/22 19:23 12/02/22 22:27 Temperature 99.4 F H Temperature Source Axillary Pulse Rate 102 H 96 Respiratory Rate 20 H 15 Blood Pressure 168/93 H 135/73 H Blood Pressure Mean 118 93 Pulse Ox 95 95 Oxygen Delivery Method Room Air Room Air MDM MDM MDM Narrative Medical decision making narrative: Patient CBC shows normal white count hemoglobin and platelets. Electrolytes were normal. Glucose was minimally up at 138. Liver function test was normal. Patient was given IV fluids Zofran and a dose of 25 mcg of fentanyl. Pain has been resolved and she is still sleeping but easily aroused. The nausea was gone but started to come back. We then gave her some Phenergan. This seems to have helped. It has made her sleepy again. But she states she is doing much better. Her daughter feels she is doing much better. Abdominal exam is really benign. She has a little bit of soreness with palpation but this would be expected immediately postoperative. She is not distended. She is not having shoulder or back pain. I do not think she requires x-rays or CAT scan imaging. She certainly has some air/nitrogen still in the abdominal cavity that is likely causing some of her symptoms. There is no indication on labs or clinical of blood loss. She does not have a surgical abdomen. She has meds for pain and nausea at home. She and her daughter are comfortable going home. They will contact Dr. Elizabeth in the morning to check in. Lab Data Attestation: I reviewed the patient's lab results. Labs: Laboratory Results - last 24 hr 12/02/22 12/02/22 21:22 21:22 WBC 9.1 RBC 4.37 Hgb 12.4 Hct 39.4 MCV 90.2 MCH 28.4 MCHC 31.5 L RDW Std Deviation 44.0 H RDW Coeff of Brady 13.4 Plt Count 208 MPV 9.2 Immature Gran % (Auto) 0.600 Neut % (Auto) 89.2 H Lymph % (Auto) 5.3 L Bailey % (Auto) 4.7 Eos % (Auto) 0.0 Baso % (Auto) 0.2 Absolute Neuts (auto) 8.1 H Absolute Lymphs (auto) 0.48 L Nucleated RBC % 0 Differential Comment SCANNED Sodium 141 Potassium 4.1 Chloride 107 Carbon Dioxide 26.0 Anion Gap 8 BUN 16 Creatinine 0.89 Estim Creat Clear Calc 45.87 Est GFR (MDRD) Af Amer 80 Est GFR (MDRD) Non-Af 66 BUN/Creatinine Ratio 18.1 Glucose 138 H Calcium 8.3 L Total Bilirubin 0.80 AST 18 ALT 19 Alkaline Phosphatase 72 Total Protein 6.3 L Albumin 3.4 Globulin 2.9 Albumin/Globulin Ratio 1.2 Discharge Plan Triage Chief Complaint: Abd Pain ED Provider: David Ortega Dx/Rx/DC Orders Clinical Impression: Acute postoperative abdominal pain, Postoperative nausea Instructions: Managing Post-Op Pain at Home Prescriptions: No Action gabapentin 100 mg capsule 300 mg PO QHS lisinopril 20 MG tablet 20 mg PO QHS omeprazole 20 mg capsule,delayed release(DR/EC) 20 mg PO BID acetaminophen 500 MG tablet 500 - 1,000 mg PO Q6H PRN PRN (Reason: Pain 1-10 Or Fever) ondansetron [ondansetron] 4 mg tablet,disintegrating 4 mg PO Q8H PRN PRN (Reason: Nausea) Qty: 10 0RF oxycodone-acetaminophen [oxycodone-acetaminophen] 5-325 mg tablet 0.5 tab PO Q6H PRN PRN (Reason: Pain) 3 Days Qty: 12 0RF Primary Care Provider: Sudarshan Galarza Referrals: Karthikeyan Elizabeth MD [Med Staff - Active Staff] - 1 Day for another exam Sudarshan Galarza MD [Primary Care Provider] - Disposition Disposition: Home, Self Care
[2022-12-02] MEDS: Ondansetron 4 MG/2 ML Vial IV (20:09)
[2022-12-02] MEDS: fentaNYL 100 MCG/2 ML Ampul 25 MCG IV (20:11)
[2022-12-02 21:28] LABS: Absolute Lymphocyte Count 0.48 X10^3/uL (0.83-4.51); Absolute Neutrophil Count 8.1 X10^3/uL (2.0-7.7); Basophil# 0.02 X10^3/uL; Basophil% 0.2 % (0-1); Hematocrit 39.4 % (37-47); Hemoglobin 12.4 g/dL (12.0-15.0); Lymphocyte # 0.48 X10^3/ul (0.83-4.51); Lymphocyte % 5.3 % (19-41); Mean Corp Hgb Conc 31.5 g/dL (32-36); Mean Corpuscular Hgb 28.4 pg (27.0-32.0); Mean Corpuscular Volume 90.2 fL (81-99); Mean Platelet Vol. 9.2 fl (6.2-12.0); Monocyte# 0.43 X10^3/uL; Monocyte% 4.7 % (0-10); NRBC Flagged by Analyzer 0 % (0-5); Neutrophil # 8.09 X10^3/uL (2.7-7.7); Neutrophil % 89.2 % (47-70); POSITIVE DIFFERENTIAL YES; Platelet Count 208 K/mm3 (150-450); RBC Distribution Width CV 13.4 % (11.6-14.6); Red Blood Count 4.37 M/mm3 (4.2-5.4); White Blood Count 9.1 K/mm3 (4.4-11.0)
[2022-12-02 21:35] LABS: Differential Indicated SCAN CRITERIA MET
[2022-12-02 21:48] LABS: ALB/GLOB Ratio 1.2 RATIO (0.9-2.4); AST(SGOT) 18 U/L (15-37); Alanine Aminotransfer ALT/SGPT 19 U/L (13-56); Albumin, Serum 3.4 g/dL (3.2-5.0); Alkaline Phosphatase 72 U/L (45-117); Anion Gap 8 (5-15); BUN 16 mg/dL (7-18); BUN/Creat Ratio 18.1 RATIO (10-20); Calcium,Total 8.3 mg/dL (8.5-10.1); Chloride 107 mmol/L (98-107); Creatinine, Serum 0.89 mg/dL (0.55-1.02); EST Glomerular Filtration Rate 66 mL/min (>60); Est Glom Filt Rate - Afr Amer 80 mL/min (>60); Estimated Creatinine Clearance 45.87 ml/min; Globulin 2.9 g/dL (2.2-4.2); Glucose 138 mg/dL (74-106); Potassium 4.1 mmol/L (3.5-5.1); Protein, Total 6.3 g/dL (6.4-8.2); Sodium Level 141 mmol/L (136-145)
[2022-12-02 22:03] LABS: Differential Comment SCANNED
[2022-12-02] MEDS: proMETHazine 25 MG/ML Syringe 12.5 MG IM (22:24)
[2022-12-02 22:27] VITALS: BP 135/73; PULSE 96; RESP 15; O2SAT 95
[2022-12-02 23:39] VITALS: BP 117/79; PULSE 77; RESP 15; TEMP 36.8; O2SAT 94
== END 2022-12-03 00:22 | disposition home or self-care (01) ==
PROVIDERS: Emergency Provider Emergency Medicine; PCP Family Medicine; Visit Provider Emergency Medicine
DX: G89.18 Other acute postprocedural pain (principal); G20 Parkinson's disease; R10.9 Unspecified abdominal pain; I10 Essential (primary) hypertension; R11.0 Nausea; E78.5 Hyperlipidemia, unspecified; K21.9 Gastro-esophageal reflux disease without esophagitis
CPT/HCPCS: 80053; 85025; 96361; 96372; 96374; 96375; 99284; J7040; A4216; J2405

== ENCOUNTER 2022-12-04 10:04 | Emergency (ER) | payer MEDICARE, BC, SELFPAY ==
[2022-12-04] VITALS (7 sets, daily range): BP systolic 123–163; BP diastolic 72–87; PULSE 66–90; RESP 12–22; TEMP 37; O2SAT 94–98; BMI 25.2
--- NOTE | 2022-12-04 10:28 | CT_ITS ---
We are attempting to reach an attending provider to discuss findings. An addendum with communication details will be sent when the communication is complete. EXAM: CT ABDOMEN AND PELVIS WITH INTRAVENOUS CONTRAST CLINICAL INDICATION: Right lower quadrant abdominal pain. DAVIDAPPRea TECHNIQUE: Helically acquired images were obtained of the abdomen and pelvis with intravenous contrast. This CT exam was performed using one or more of the following dose reduction techniques: automated exposure control, adjustment of the mA and/or kV according to patient size, and/or use of iterative reconstruction technique. This report was created using [employer] report [employer] technology. CONTRAST: IV 100mL Isovue-300 COMPARISON: CT Abdomen Pelvis dated 10/28/2022 FINDINGS: LOWER THORAX: Interval resolution of the nodular densities within the right middle lobe. New small bilateral pleural effusions and mild bibasilar atelectasis. ABDOMEN: LIVER: Normal. Homogeneous. No focal mass. GALLBLADDER AND BILE DUCTS: Stable mild distention of the biliary tree, expected finding for postcholecystectomy patient. No evidence of an obstructing stone or mass. No intra- or extrahepatic biliary ductal dilation. PANCREAS: Normal. No focal cystic or solid mass. SPLEEN: Normal. Normal size without focal cystic or solid mass. ADRENALS: Normal. No nodules. KIDNEYS AND URETERS: Nonobstructive right renal stone. Small left kidney again noted which measures 7.6 cm in cephalocaudad dimension. Normal renal size and position. STOMACH AND BOWEL: Moderate stool burden within the large bowel and rectum. PELVIS: APPENDIX: No evidence of acute appendicitis. BLADDER: Gas noted within the urinary bladder presumably related to recent instrumentation. REPRODUCTIVE: Unremarkable as visualized. No mass. ABDOMEN and PELVIS: INTRAPERITONEAL SPACE: Free air noted within the peritoneal cavity. No ascites or other fluid collection. BONES/JOINTS: The prominent multilevel disc degeneration noted within the spine. Moderate reverse S scoliosis of the thoracolumbar spine. SOFT TISSUES: Soft tissue gas noted along the left anterior abdominal wall. Heterogeneous density measuring 6.0 x 4.4 cm within the left inguinal canal suggestive of hematoma. Minimal gas noted along the periphery of the collection. VASCULATURE: Normal. Abdominal aorta is non-dilated. LYMPH NODES: Normal. No enlarged lymph nodes. CT/Abdomen/Pelvis W IV Cont ONLY IMPRESSION: 1. Pneumoperitoneum and soft tissue gas along the left anterior abdominal wall which presumably are related to recent surgery. Ruptured hollow viscus to be excluded. 2. 6.0 x 4.4 cm hematoma within the distended left inguinal canal. 3. Right nephrolithiasis. 4. Stable small left kidney. 5. Constipation. Electronically Signed: Andre Jackson MD at 11:44 EST ,
--- NOTE | 2022-12-04 10:35 | ED.VIS.GI ---
HPI HPI - GI History of Present Illness Chief Complaint: Weakness Narrative Narrative: 72-year-old female presenting for evaluation of abdominal pain. She is a very poor informant. She is crying and whimpering. It is difficult to redirect her. She is able to tell me she has pain in the right side of her abdomen which started today but cannot tell me much else. PFSH PFS Medical History Dehydration Essential hypertension Fibromyalgia Gastroenteritis GERD (gastroesophageal reflux disease) Hyperlipidemia Irritable bowel syndrome with both constipation and diarrhea Lumbar radiculopathy Nausea vomiting and diarrhea Non-smoker Parkinsons disease Renal calculus, right Scoliosis of thoracolumbar spine Situational depression Thoracic radiculopathy due to degenerative joint disease of spine Home Medications lisinopril 20 mg tablet 20 mg PO QHS blood pressure 04/09/17 [History Last Taken 05/14/22] omeprazole 20 mg capsule,delayed release 20 mg PO BID GERD 09/09/20 [History Last Taken 05/14/22] gabapentin 100 mg capsule 300 mg PO QHS 10/15/20 [History Last Taken 05/14/22] acetaminophen 500 mg tablet 500 - 1,000 mg PO Q6H PRN PRN Pain 1-10 Or Fever 01/10/21 [History Last Taken Unknown] ondansetron 4 mg disintegrating tablet 4 mg PO Q8H PRN PRN Nausea #10 tabs 11/15/22 [Rx Last Taken Unknown] oxycodone-acetaminophen 5 mg-325 mg tablet 0.5 tab PO Q6H PRN PRN Pain 3 days #12 TABLETS 11/15/22 [Rx Last Taken Unknown] bisacodyl 10 mg rectal suppository (Dulcolax (bisacodyl)) 10 mg IN DAILY #12 ea 12/04/22 [Rx Last Taken Unknown] polyethylene glycol 3350 17 gram/dose oral powder (Miralax) 17 g PO BID #119 grams 12/04/22 [Rx Last Taken Unknown] Allergy/AdvReac Type Severity Reaction Status Date / Time nitrofurantoin Allergy Hives Verified 12/04/22 10:07 [From Macrobid] hydrocodone [From Vicodin] AdvReac Vomiting Verified 12/04/22 10:07 morphine AdvReac Vomiting Verified 12/04/22 10:07 pregabalin [From Lyrica] AdvReac Vomiting Verified 12/04/22 10:07 Family History Mother Dementia Father No cardiac disease Surgical History H/O ventral hernia repair History of cataract surgery History of cholecystectomy Hx laparoscopic cholecystectomy Social History Smoking Status: Never smoker Electronic Cigarette Use: not used second hand exposure: No alcohol intake: never substance use type: does not use ROS ROS ED Review of Systems ROS Unobtainable: due to mental status EXAM Physical Exam Const Vital Signs: 12/04/22 10:07 12/04/22 10:14 12/04/22 10:15 Temperature 98.6 F Temperature Source Temporal Pulse Rate 90 89 Respiratory Rate 13 22 H Respiratory Effort Normal Non-Labored Respiratory Pattern Tachypnea Blood Pressure 148/84 H 163/87 H Blood Pressure Mean 105 112 Pulse Ox 98 97 Oxygen Delivery Method Room Air Room Air 12/04/22 12:30 12/04/22 12:31 12/04/22 12:40 Temperature Temperature Source Pulse Rate 66 66 66 Respiratory Rate 15 12 18 Respiratory Effort Respiratory Pattern Blood Pressure 123/72 H Blood Pressure Mean 87 Pulse Ox 94 94 94 Oxygen Delivery Method Positive well nourished General Appearance ED: NAD; Negative for pallor HEENT Reports moist mucous membranes normocephalic and atraumatic Eyes PERRL and EOMs intact bilaterally General Eye ED: Negative for pale conjunctiva or scleral icterus Resp normal respiratory effort and clear to auscultation bilaterally Auscultation: Negative for rales, rhonchi or wheezes Cardio regular rate and regular rhythm GI Palpation: tender RLQ Neuro CN's II-XII intact bilaterally Sensorium / Orientation: alert Motor Exam: strength 5/5 throughout Skin General Skin Exam: Negative for jaundice or pallor MDM MDM MDM Narrative Medical decision making narrative: Was able to review the medical record. Apparently patient had a left inguinal hernia repair by Dr. Elizabeth performed on 12/02/2022. The patient was seen the same day in the emergency room for about postoperative nausea and was treated. Is unclear if she is followed up with Dr. Elizabeth. She is a poor informant so I will need to obtain lab work and likely a CT scan because I cannot get a good story. Differential includes but is not limited to GERD, gastritis, peptic ulcer disease, acute cholecystitis, acute cholelithiasis, appendicitis, diverticulitis, pancreatitis, small bowel obstruction, perforated bowel, food poisoning, postoperative. Will obtain CBC to assess white blood cell count, hemoglobin, platelets, differential. CMP to assess liver function, renal function, electrolytes, anion gap. Lipase to assess for pancreatitis. Urinalysis to assess for hematuria or infection. Patient medicated with fentanyl and Zofran due to morphine allergy. On reevaluation patient is resting comfortably. CBC does not show leukocytosis. Hemoglobin hematocrit are stable. Platelets are normal. No significant left shift. Renal function electrolytes within normal limits. Liver function testing is normal. Lipase slightly elevated at 465 but not consistent with pancreatitis. Urinalysis negative for infection. I did obtain a CT of the abdomen pelvis as the patient is postoperative and this is her second visit since her surgery. This does show some pneumoperitoneum and soft tissue gas along the left anterior abdominal wall which was presumably related to recent surgery. Ruptured hollow viscus to be excluded. There is also a 6.0 x 4.4 cm hematoma within the distended left inguinal canal. Patient's family called to talk with social work about getting her placed in a penitentiary facility because she is unable to care for herself. Given the read of her CT I will have surgery see her. Dr. Sawyer to see the patient in the ED. Dr. Sawyer came and evaluated the patient. She reviewed the CT scan. She reviewed with Dr. Elizabeth as well. They believe the airplane is likely caused by trocar during surgery. Dr. Sawyer did request that the patient get an enema in the ER. She recommended a stool regimen which was given. Family had called to speak with social work regarding the patient need for admission to a penitentiary facility Dr. Sawyer felt she could go to a SNF. Social work felt that they could probably get her hair from the emergency room. I will attempt to get this done. Impression 1. Abdominal pain 2. Constipation Lab Data Attestation: I reviewed the patient's lab results. Labs: Laboratory Results - last 24 hr 12/04/22 12/04/22 12/04/22 10:33 10:33 12:21 WBC 8.2 RBC 4.85 Hgb 13.7 Hct 43.9 MCV 90.5 MCH 28.2 MCHC 31.2 L RDW Std Deviation 45.7 H RDW Coeff of Brady 13.5 Plt Count 236 MPV 9.1 Immature Gran % (Auto) 0.400 Neut % (Auto) 75.4 H Lymph % (Auto) 13.1 L [place] % (Auto) 9.4 Eos % (Auto) 1.2 Baso % (Auto) 0.5 Absolute Neuts (auto) 6.2 Absolute Lymphs (auto) 1.07 Nucleated RBC % 0 Sodium 142 Potassium 4.1 Chloride 107 Carbon Dioxide 28.0 Anion Gap 7 BUN 17 Creatinine 1.00 Estim Creat Clear Calc 40.83 Est GFR (MDRD) Af Amer 70 Est GFR (MDRD) Non-Af 58 L BUN/Creatinine Ratio 17.1 Glucose 115 H Calcium 8.8 Total Bilirubin 0.40 AST 15 ALT 16 Alkaline Phosphatase 76 Total Protein 6.5 Albumin 3.1 L Globulin 3.4 Albumin/Globulin Ratio 0.9 Lipase 465 H Urine Color Yellow Urine Clarity Clear Urine pH 7.0 Ur Specific [place] 1.010 Urine Protein Negative Urine Glucose (UA) Normal Urine Ketones Negative Urine Occult Blood Negative Urine Nitrite Negative Urine Bilirubin Negative Urine Urobilinogen Normal Ur Leukocyte Esterase Negative Urine RBC 0 SEEN Urine WBC 0 SEEN Ur Squamous Epith Cells 0 SEEN Urine Bacteria 0 SEEN Urine Mucus 0 SEEN Radiography Diagnostic Testing: Clinical Impression(s) from Imaging Studies Abdomen/Pelvis CT 12/04/22 10:28 IMPRESSION: 1. Pneumoperitoneum and soft tissue gas along the left anterior abdominal wall which presumably are related to recent surgery. Ruptured hollow viscus to be excluded. 2. 6.0 x 4.4 cm hematoma within the distended left inguinal canal. 3. Right nephrolithiasis. 4. Stable small left kidney. 5. Constipation. Electronically Signed: Andre Jackson MD at 11:44 EST , ADDENDUM: 12/04/22 1154 IMPRESSION: 1. Pneumoperitoneum and soft tissue gas along the left anterior abdominal wall which presumably are related to recent surgery. Ruptured hollow viscus to be excluded. 2. 6.0 x 4.4 cm hematoma within the distended left inguinal canal. 3. Right nephrolithiasis. 4. Stable small left kidney. 5. Constipation. N.B. : The above Results were Read Back by Andre Jackson MD to Kian Toledo DO, and understanding confirmed on 12/04/2022 11:48:10 (ET). Electronically Signed: Andre Jackson MD at 11:44 EST , Discharge Plan Triage Chief Complaint: Weakness ED Provider: Tre Langston Dx/Rx/DC Orders Prescriptions: New bisacodyl [Dulcolax (bisacodyl)] 10 mg suppository 10 mg IN DAILY Qty: 12 0RF polyethylene glycol 3350 [Miralax] 17 gram/dose powder 17 g PO BID Qty: 119 0RF Rx Instructions: Take BID x 3 days for constipation then take daily after. No Action gabapentin 100 mg capsule 300 mg PO QHS lisinopril 20 MG tablet 20 mg PO QHS omeprazole 20 mg capsule,delayed release(DR/EC) 20 mg PO BID acetaminophen 500 MG tablet 500 - 1,000 mg PO Q6H PRN PRN (Reason: Pain 1-10 Or Fever) ondansetron [ondansetron] 4 mg tablet,disintegrating 4 mg PO Q8H PRN PRN (Reason: Nausea) Qty: 10 0RF oxycodone-acetaminophen [oxycodone-acetaminophen] 5-325 mg tablet 0.5 tab PO Q6H PRN PRN (Reason: Pain) 3 Days Qty: 12 0RF Primary Care Provider: Sudarshan Galarza Referrals: Sudarshan Galarza MD [Primary Care Provider] - Disposition Disposition: Home, Self Care
[2022-12-04 10:49] LABS: Absolute Lymphocyte Count 1.07 X10^3/uL (0.83-4.51); Absolute Neutrophil Count 6.2 X10^3/uL (2.0-7.7); Basophil# 0.04 X10^3/uL; Basophil% 0.5 % (0-1); Eosinophils% 1.2 % (0-5); Hematocrit 43.9 % (37-47); Hemoglobin 13.7 g/dL (12.0-15.0); Lymphocyte # 1.07 X10^3/ul (0.83-4.51); Lymphocyte % 13.1 % (19-41); Mean Corp Hgb Conc 31.2 g/dL (32-36); Mean Corpuscular Hgb 28.2 pg (27.0-32.0); Mean Corpuscular Volume 90.5 fL (81-99); Mean Platelet Vol. 9.1 fl (6.2-12.0); Monocyte# 0.77 X10^3/uL; Monocyte% 9.4 % (0-10); NRBC Flagged by Analyzer 0 % (0-5); Neutrophil # 6.15 X10^3/uL (2.7-7.7); Neutrophil % 75.4 % (47-70); Platelet Count 236 K/mm3 (150-450); RBC Distribution Width CV 13.5 % (11.6-14.6); RBC Distribution Width SD 45.7 fl (35.1-43.9); Red Blood Count 4.85 M/mm3 (4.2-5.4); White Blood Count 8.2 K/mm3 (4.4-11.0)
[2022-12-04] MEDS: fentaNYL 100 MCG/2 ML Ampul 25 MCG IV (10:57)
[2022-12-04] MEDS: 0.9% Normal Saline 1,000 ML 1000 ML IV (10:57)
[2022-12-04] MEDS: Ondansetron 4 MG/2 ML Vial IV (10:57)
[2022-12-04 11:05] LABS: ALB/GLOB Ratio 0.9 RATIO (0.9-2.4); AST(SGOT) 15 U/L (15-37); Alanine Aminotransfer ALT/SGPT 16 U/L (13-56); Albumin, Serum 3.1 g/dL (3.2-5.0); Alkaline Phosphatase 76 U/L (45-117); Anion Gap 7 (5-15); BUN 17 mg/dL (7-18); BUN/Creat Ratio 17.1 RATIO (10-20); Calcium,Total 8.8 mg/dL (8.5-10.1); Chloride 107 mmol/L (98-107); EST Glomerular Filtration Rate 58 mL/min (>60); Est Glom Filt Rate - Afr Amer 70 mL/min (>60); Estimated Creatinine Clearance 40.83 ml/min; Globulin 3.4 g/dL (2.2-4.2); Glucose 115 mg/dL (74-106); Lipase 465 U/L (73-393); Potassium 4.1 mmol/L (3.5-5.1); Protein, Total 6.5 g/dL (6.4-8.2); Sodium Level 142 mmol/L (136-145)
[2022-12-04 12:30] LABS: Bacteria 0 SEEN /hpf (None Seen); Mucous, Urine 0 SEEN /hpf (<or=2+); Red Blood Cells-Urine 0 SEEN /hpf (0-5); Squamous Epithelial Cells - UA 0 SEEN /hpf (5-10); White Blood Cells 0 SEEN /hpf (0-5)
[2022-12-04 12:32] LABS: Color, Urine Yellow (Yellow); Glucose, Dipstick Normal (Normal); Ketone-Dipstick Negative (Negative); Leukocyte Esterase-Dipstick Negative /ul (Negative); Nitrite-Dipstick Negative (Negative); Occult Blood-Urine Negative /ul (Negative); Protein-Dipstick Negative (Negative); Urine Bilirubin Dipstick Negative (Negative); Urine Clarity Clear (Clear); Urine Urobilinogen Normal (Normal)
--- NOTE | 2022-12-04 15:06 | CM.ED ---
Addendum entered by Rhiannon Blokc 12/04/22 17:38: SW contacted Tatum with [facility] to inquire about patient's referral. Tatum explained she just received accepting information and explained the Pasr was needed, covid test and discharge orders. SW to follow up. SW informed MD Langston that patient was accepted to [facility] and needed discharge orders. explained all of the discharge information was in the H&P. SW met with patient to inform her of her acceptance to [facility]. Patient requested to speak with her granddaughter. SW contacted patient's granddaughter on the mobile phone and assisted patient with holding the phone. Patient's granddaughter reported she would be going to [place] tonight with patient's belongings and patient's daughter would be coming tomorrow to [place] to bring patient's purse. Patient and granddaughter voiced understanding of plan to D/C to [facility]. SW contacted Tatum from [facility] to inform her the MD put the D/C orders in the H&P. Tatum voiced understanding and explained she would inform staff. Tatum explained transportation can be set up once requested items were sent via [employer]. SW sent covid test and pasr results via [employer]. benzol still operator set up transportation with 7pm pickling machine operator time. SW sent transportation update via [employer]. SW updated patient and patient's granddaughter of transportation time. Plan: d/c to [facility] Rhiannon Block STORE GIFT WRAP ASSOCIATE, PATHOLOGY MANAGER Original Note: Social Work Note Referral Source: RAUL Agee Referral Reason: SNF placement RAUL Agee met with SW and informed her of patient's granddaughter's concerns about patient being able to care for herself as they have had to call EMS multiple times since patient had a surgery. RN states patient's daughter, Terra, is HCPOA. SW to follow up. SW attempted to meet with patient, however, patient was sleeping. MD Langston reports patient was cleared by surgeon for her previous surgery, so a referral can be made for SNF. SW contacted patient's daughter, Terra, and introduced herself and role as [facility] Senior Enterprise Architect. SW inquired about recent events as well as concerns. Patient's daughter explained the patient recently had a surgery and was struggling to care for herself at home. Patient's daughter explained they have a family friend at [facility] and would prefer a referral go there. LEXUS briefly explained the referral process and reports she would print a list of SNF options in [facility] to review with patient. SW met with patient and introduced herself and role as [facility] Senior Enterprise Architect. Patient was laying in bed with her eye closed and agreeable to speak to SW. SW inquired about patient's interest in SNF placement. Patient stated whatever my family thinks it best. SW reviewed conversation with patient's daughter regarding referral to [facility]. Patient states she [place], SW clarified the SNF she was referring to is [facility]. SW briefly explained the referral process, patient in agreement for SW to send referrals to both facilities. SW attempted to contact patient's daughter, no answer. SW then contacted patient's granddaughter, Hardy, and introduced herself and role as [facility] Senior Enterprise Architect. SW briefly inquired about concerns and reviewed the conversation she had with patient and patient's daughter. Patient's granddaughter in agreement for referrals to be sent to both facilities. Patient's granddaughter was tearful and explained they want the patient to return home but doesn't feel she can be safe at home currently. LEXUS explained a referral would be sent to [facility] and [facility]. Referrals for [facility] sent via [facility]. LEXUS contacted [facility] to inquire about their bed availability and was informed they do not have beds available at this time. LEXUS contacted [facility] and spoke with admissions staff Tatum. Tatum explained they did have bed availability. LEXUS explained the patient is currently in ED and hoping to be placed from ED. Referral was already sent via [facility]. Tatum explained she would be reviewing the referral. Plan: SNF, [facility] pending acceptance Rhiannon ONEILL, SARA
== END 2022-12-04 19:20 | disposition home or self-care (01) ==
PROVIDERS: Emergency Provider Student in an Organized Health Care Education/Training Program; PCP Family Medicine; Visit Provider Student in an Organized Health Care Education/Training Program
DX: R53.1 Weakness (principal); G20 Parkinson's disease; K59.00 Constipation, unspecified; I10 Essential (primary) hypertension; R11.0 Nausea; E78.5 Hyperlipidemia, unspecified; R10.9 Unspecified abdominal pain; K21.9 Gastro-esophageal reflux disease without esophagitis
CPT/HCPCS: 74177; 80053; 81001; 83690; 85025; 87811; 96361; 96374; 96375; 99285; J7030; Q9967; A4216; J2405

== ENCOUNTER → 2022-12-08 | Outpatient (REF) | payer MEDICARE, BC, SELFPAY ==
[2022-12-08 10:06] LABS: Absolute Lymphocyte Count 1.52 X10^3/uL (0.83-4.51); Absolute Neutrophil Count 4.1 X10^3/uL (2.0-7.7); Basophil# 0.04 X10^3/uL; Basophil% 0.6 % (0-1); Eosinophil# 0.36 X10^3/uL; Eosinophils% 5.3 % (0-5); Hematocrit 42.4 % (37-47); Lymphocyte # 1.52 X10^3/ul (0.83-4.51); Lymphocyte % 22.4 % (19-41); Mean Corp Hgb Conc 30.7 g/dL (32-36); Mean Corpuscular Hgb 28.8 pg (27.0-32.0); Mean Corpuscular Volume 93.8 fL (81-99); Mean Platelet Vol. 9.9 fl (6.2-12.0); Monocyte# 0.71 X10^3/uL; Monocyte% 10.5 % (0-10); NRBC Flagged by Analyzer 0 % (0-5); Neutrophil # 4.09 X10^3/uL (2.7-7.7); Neutrophil % 60.3 % (47-70); Platelet Count 225 K/mm3 (150-450); RBC Distribution Width CV 13.7 % (11.6-14.6); RBC Distribution Width SD 47.3 fl (35.1-43.9); Red Blood Count 4.52 M/mm3 (4.2-5.4); White Blood Count 6.8 K/mm3 (4.4-11.0)
[2022-12-08 10:38] LABS: Anion Gap 7 (5-15); BUN 24 mg/dL (7-18); Calcium,Total 9.1 mg/dL (8.5-10.1); Chloride 106 mmol/L (98-107); Creatinine, Serum 1.09 mg/dL (0.55-1.02); EST Glomerular Filtration Rate 52 mL/min (>60); Est Glom Filt Rate - Afr Amer 63 mL/min (>60); Glucose 85 mg/dL (74-106); Potassium 4.3 mmol/L (3.5-5.1); Sodium Level 141 mmol/L (136-145)
== END ==
LOC: OLS.WHLTCC 05:00
PROVIDERS: PCP Family Medicine; Visit Provider Internal Medicine
DX: I10 Essential (primary) hypertension (principal); G20 Parkinson's disease; E78.5 Hyperlipidemia, unspecified; K21.9 Gastro-esophageal reflux disease without esophagitis; Z48.815 Encounter for surgical aftercare following surgery on the digestive system
CPT/HCPCS: 36415; 80048; 85025

== ENCOUNTER → 2022-12-15 | Outpatient (REF) | payer MEDICARE, BC, SELFPAY ==
[2022-12-15 08:41] LABS: Absolute Lymphocyte Count 1.82 X10^3/uL (0.83-4.51); Absolute Neutrophil Count 3.6 X10^3/uL (2.0-7.7); Basophil# 0.07 X10^3/uL; Eosinophil# 0.57 X10^3/uL; Eosinophils% 8.3 % (0-5); Hematocrit 38.6 % (37-47); Hemoglobin 11.8 g/dL (12.0-15.0); Lymphocyte # 1.82 X10^3/ul (0.83-4.51); Lymphocyte % 26.6 % (19-41); Mean Corp Hgb Conc 30.6 g/dL (32-36); Mean Corpuscular Hgb 28.6 pg (27.0-32.0); Mean Corpuscular Volume 93.5 fL (81-99); Mean Platelet Vol. 9.6 fl (6.2-12.0); Monocyte% 10.2 % (0-10); NRBC Flagged by Analyzer 0 % (0-5); Neutrophil % 52.9 % (47-70); Platelet Count 251 K/mm3 (150-450); RBC Distribution Width CV 13.9 % (11.6-14.6); Red Blood Count 4.13 M/mm3 (4.2-5.4); White Blood Count 6.8 K/mm3 (4.4-11.0)
[2022-12-15 08:55] LABS: Anion Gap 5 (5-15); BUN 30 mg/dL (7-18); BUN/Creat Ratio 27.5 RATIO (10-20); Calcium,Total 8.6 mg/dL (8.5-10.1); Chloride 106 mmol/L (98-107); Creatinine, Serum 1.09 mg/dL (0.55-1.02); EST Glomerular Filtration Rate 52 mL/min (>60); Est Glom Filt Rate - Afr Amer 63 mL/min (>60); Glucose 90 mg/dL (74-106); Potassium 4.4 mmol/L (3.5-5.1); Sodium Level 140 mmol/L (136-145)
== END ==
LOC: OLS.WHLTCC 05:00
PROVIDERS: PCP Family Medicine; Visit Provider Internal Medicine
DX: I10 Essential (primary) hypertension (principal); G20 Parkinson's disease; E78.5 Hyperlipidemia, unspecified; K21.9 Gastro-esophageal reflux disease without esophagitis; Z48.815 Encounter for surgical aftercare following surgery on the digestive system
CPT/HCPCS: 36415; 80048; 85025

== ENCOUNTER → 2023-01-05 | Outpatient (CLI) | payer MEDICARE, BC, SELFPAY ==
--- NOTE | 2023-01-05 15:55 | VDLE_ITS ---
Reason For Study: edema RIGHT LEFT GSV is normal. GSV is normal. CFV is compressible, spontaneous, phasic, CFV is compressible, spontaneous, phasic, competent and demonstrates normal competent, and demonstrates normal augmentation. augmentation. FV is compressible, spontaneous, phasic, FV is compressible, spontaneous, phasic, competent and demonstrates normal competent and demonstrates normal augmentation. augmentation. POP V is compressible, spontaneous, phasic, POP V is compressible, spontaneous, phasic, competent and demonstrates normal competent and demonstrates normal augmentation. augmentation. T/P Trunk is compressible. T/P Trunk is compressible. PTV is compressible. PTV is compressible. RT PerV is compressible. LT PerV is compressible. Procedure This is a venous duplex using B-mode, color flow and spectral Doppler. Exam performed in department. The exam was diagnostic. A preliminary report was called and/or faxed to Dr. Galarza. VL/Venous Duplex US - [place] Extrem Interpretation Summary Deep veins of the lower extremities are bilaterally patent and compressible seg mentally. There is no evidence of deep vein thrombosis on either side. Valvular competence appears in tact within the proximal deep venous systems bilaterally. The great saphenous veins appear bila terally patent and compressible segmentally. Ordering Physician: Sudarshan Galarza Performed By: Seng Gee RVT
== END | disposition home or self-care (01) ==
PROVIDERS: PCP Family Medicine; Visit Provider Family Medicine
DX: R60.0 Localized edema (principal)
CPT/HCPCS: 93970

== ENCOUNTER 2023-03-21 15:03 | Observation (INO) | payer MEDICARE, BC, SELFPAY ==
[2023-03-21 15:04] VITALS: TEMP 36.8; BMI 25.0
--- NOTE | 2023-03-21 15:48 | CT_ITS ---
STUDY: CT CERVICAL SPINE WITHOUT CONTRAST REASON FOR EXAM: Female, 73 years old. pain, no trauma RADIATION DOSAGE (If Supplied By Facility): CTDIvol = ( 20.21 ) mGy, DLP = ( 303.50 ) mGycm TECHNIQUE: High resolution transaxial imaging was performed without contrast material. Sagittal and coronal images were reconstructed. Individualized dose optimization techniques were used for this CT. COMPARISON: None FINDINGS: No definite acute fracture/dislocation. The cervical junction is intact. C1-C2 articulation is intact. There is straightening. There is normal alignment. Facet joints are intact at all levels bilaterally. No jumped facets. There is multilevel spondyloarthropathy. Multilevel degenerative disc disease seen. Multilevel loss of disc height. Multilevel posterior marginal osteophytes and disc bulges. Multilevel neural foraminal narrowing. Visualized paraspinal soft tissues and structures are unremarkable. CT/Spine Cervical without Contras IMPRESSION: There is no definite acute fracture/dislocation. Degenerative changes. Electronically Signed: Rohan Zaragoza MD at 19:12 EDT ,
--- NOTE | 2023-03-21 15:48 | CT_ITS ---
STUDY: CT THORACIC SPINE WITHOUT CONTRAST REASON FOR EXAM: Female, 73 years old. pain RADIATION DOSAGE (If Supplied By Facility): CTDIvol = ( 14.78 ) mGy, DLP = ( 485.35 ) mGycm TECHNIQUE: The patient was scanned in a multi detector CT scanner. High resolution imaging was performed. Images were obtained from to . Sagittal and coronal images were reconstructed. Individualized dose optimization techniques were used for this CT. COMPARISON: None. FINDINGS: There is multilevel degenerative disc disease and cervical spondylosis. There is an increased kyphosis of the thoracic spine. There is a levoscoliosis of the thoracic spine. There is multilevel endplate spondylosis of the thoracic spine. There is diffuse demineralization. There is multilevel degenerative disc disease with loss of the disc space heights. No compression fractures. The soft tissue structures are unremarkable. CT/Spine Thoracic without Contras IMPRESSION: No acute abnormalities. Degenerative changes. Electronically Signed: Rohan Zaragoza MD at 19:16 EDT ,
--- NOTE | 2023-03-21 15:48 | CT_ITS ---
EXAM: CT LUMBAR SPINE WITHOUT INTRAVENOUS CONTRAST CLINICAL INDICATION: pain TECHNIQUE: Helically acquired images were obtained of the lumbar spine without intravenous contrast. 2D reformats were reviewed. This CT exam was performed using one or more of the following dose reduction techniques: automated exposure control, adjustment of the mA and/or kV according to patient size, and/or use of iterative reconstruction technique. RADIATION DOSE: CTDIvol = 21.52 mGy, DLP = 647.10 mGy-cm COMPARISON: 11/15/2022 FINDINGS: VERTEBRAE: Stable marked multilevel spondylosis. Stable mild to moderate dextroconvex scoliosis. No traumatic subluxation. No discrete lytic or blastic abnormality. No acute fracture seen. Normal lordosis and alignment. DISCS/SPINAL CANAL/NEURAL FORAMINA: Stable severe multilevel degenerative disc disease. No critical stenosis. VASCULATURE: Visualized abdominal aorta is not dilated. LYMPH NODES: Unremarkable. No retroperitoneal adenopathy. CT/Spine Lumbar without Contrast IMPRESSION: 1. No change or definite acute abnormality. 2. Scoliosis and severe degenerative changes. Electronically Signed: Rohan Zaragoza MD at 19:10 EDT ,
--- NOTE | 2023-03-21 15:50 | CT_ITS ---
EXAM: CT ABDOMEN AND PELVIS WITH INTRAVENOUS CONTRAST CLINICAL INDICATION: abdominal pain TECHNIQUE: Helically acquired images were obtained of the abdomen and pelvis with intravenous contrast. This CT exam was performed using one or more of the following dose reduction techniques: automated exposure control, adjustment of the mA and/or kV according to patient size, and/or use of iterative reconstruction technique. CONTRAST: [id number] 100ML RADIATION DOSE: CTDIvol = 12.55 mGy, DLP = 715.33 mGy-cm COMPARISON: 12/04/2022 FINDINGS: LIMITATIONS: Exam is limited by improper positioning of patient''s arms resulting in significant streak artifact. LOWER THORAX: Mild fibrotic changes in both lung bases. Moderate cardiomegaly. No significant pericardial effusion. ABDOMEN: LIVER: Hepatomegaly. Mild intrahepatic bile duct distention.. Homogeneous. No focal mass. GALLBLADDER AND BILE DUCTS: Absent gallbladder. No intra- or extrahepatic biliary ductal dilation. PANCREAS: Unremarkable. No focal cystic or solid mass. SPLEEN: Unremarkable. Normal size without focal cystic or solid mass. ADRENALS: Unremarkable. No nodules. KIDNEYS AND URETERS: Stable chronic atrophy of the left kidney. Stable nonobstructing stone in the upper pole of the right kidney. STOMACH AND BOWEL: Evaluation of the GI tract is limited by absence of oral contrast. Cannot exclude stomach wall thickening. No dilated loops of bowel or evidence for obstruction. Cannot exclude segmental thickening of the swann of the small or large bowel. Cannot exclude enteritis or colitis. Moderate diffuse fecal retention. Appendix within normal limits. PELVIS: APPENDIX: No evidence of acute appendicitis. BLADDER: Unremarkable. REPRODUCTIVE: Unremarkable as visualized. No mass. ABDOMEN and PELVIS: INTRAPERITONEAL SPACE: Unremarkable. No ascites or other fluid collection. No free air. BONES/JOINTS: Prominent degenerative changes throughout the spine with mild to moderate dextroconvex scoliosis. No suspicious lytic or blastic abnormality. SOFT TISSUES: Unremarkable. No discrete abdominal or pelvic wall hernia. VASCULATURE: Tortuous aorta with calcified plaque. No aneurysm. LYMPH NODES: Unremarkable. No enlarged lymph nodes. CT/Abdomen/Pelvis W IV Cont ONLY IMPRESSION: Numerous chronic findings as above, but no definite acute abnormality. Electronically Signed: Rohan Zaragoza MD at 19:07 EDT ,
--- NOTE | 2023-03-21 15:57 | EDS_ITS ---
HPI History of Present Illness Chief Complaint: Back Informant: patient Narrative Narrative: Patient is a 73-year-old female with history of Parkinson's disease, hypertension, hyperlipidemia, fibromyalgia, IBS, scoliosis of thoracolumbar spine presenting with worsening neck and back pain as well as right-sided abdominal pain. Patient states he has been feeling well for the past few days and has been nauseous. She notes that she did have episode of diarrhea today. She is she is pain rating from her neck all the way down her back and into her right side of her abdomen. She states that she lives at home and has assistance of her granddaughter. She states that she has not able to sleep in a bed and she has to sit in recliner because her symptoms are so bad. Patient denies any chest pain, shortness of breath or difficulty breathing. No report of any fever or chills. She denies any urinary symptoms. No other complaints at this time. [facility] Medical History Dehydration Essential hypertension Fibromyalgia Gastroenteritis GERD (gastroesophageal reflux disease) Hyperlipidemia Irritable bowel syndrome with both constipation and diarrhea Lumbar radiculopathy Nausea vomiting and diarrhea Non-smoker Parkinsons disease Renal calculus, right Scoliosis of thoracolumbar spine Situational depression Thoracic radiculopathy due to degenerative joint disease of spine Home Medications lisinopril 20 mg tablet 20 mg PO QHS blood pressure 04/09/17 [History Last Taken 05/14/22] omeprazole 20 mg capsule,delayed release 20 mg PO BID GERD 09/09/20 [History Last Taken 05/14/22] gabapentin 100 mg capsule 300 mg PO QHS 10/15/20 [History Last Taken 05/14/22] acetaminophen 500 mg tablet 500 - 1,000 mg PO Q6H PRN PRN Pain 1-10 Or Fever 01/10/21 [History Last Taken Unknown] ondansetron 4 mg disintegrating tablet 4 mg PO Q8H PRN PRN Nausea #10 tabs 11/15/22 [Rx Last Taken Unknown] oxycodone-acetaminophen 5 mg-325 mg tablet 0.5 tab PO Q6H PRN PRN Pain 3 days #12 TABLETS 11/15/22 [Rx Last Taken Unknown] bisacodyl 10 mg rectal suppository (Dulcolax (bisacodyl)) 10 mg OR DAILY #12 ea 12/04/22 [Rx Last Taken Unknown] polyethylene glycol 3350 17 gram/dose oral powder (Miralax) 17 g PO BID #119 grams 12/04/22 [Rx Last Taken Unknown] Allergy/AdvReac Type Severity Reaction Status Date / Time nitrofurantoin Allergy Hives Verified 03/21/23 15:03 [From Macrobid] hydrocodone [From Vicodin] AdvReac Vomiting Verified 03/21/23 15:03 morphine AdvReac Vomiting Verified 03/21/23 15:03 pregabalin [From Lyrica] AdvReac Vomiting Verified 03/21/23 15:03 Family History Mother Dementia Father No cardiac disease Surgical History H/O ventral hernia repair History of cataract surgery History of cholecystectomy Hx laparoscopic cholecystectomy Social History Smoking Status: Never smoker Electronic Cigarette Use: not used second hand exposure: No alcohol intake: never substance use type: does not use ROS ROS ED Constitutional Constitutional ED: Denies chills or fever(s) ENT ENT ED: Denies sore throat Cardiovascular Cardiovascular: Denies chest pain or palpitations Respiratory/Chest Respiratory/Chest: Denies dyspnea Gastrointestinal Gastrointestinal: Reports abdominal pain, diarrhea and nausea; Denies melena or vomiting Genitourinary Genitourinary ED: Denies dysuria Musculoskeletal Musculoskeletal: Reports back pain and neck pain; Denies myalgias Integumentary Denies rash Neurologic Neurologic: Reports other Details: Parkinson's with baseline tremor and weakness ; Denies headache(s) Psychiatric Psychiatric: Reports depression Hematologic/Lymphatic Hematologic/Lymphatic: Denies easy bleeding or easy bruising EXAM Physical Exam Const Vital Signs: 03/21/23 15:04 03/21/23 16:23 03/21/23 17:50 Temperature 98.3 F 102.7 F H Temperature Source Temporal Axillary Pulse Rate 74 Respiratory Rate 18 Blood Pressure 142/92 H Blood Pressure Mean 108 Pulse Ox 94 Oxygen Delivery Method Room Air 03/21/23 19:50 03/21/23 21:00 03/22/23 00:00 Temperature 100.3 F H Temperature Source Oral Pulse Rate 90 74 61 Respiratory Rate 16 Blood Pressure 123/62 H 122/70 H Blood Pressure Mean 82 87 Pulse Ox 95 95 97 Oxygen Delivery Method Room Air Room Air Positive well nourished and well developed General Appearance ED: well developed and other Uncomfortable appearing, laying in the bed listing to her right HEENT Reports moist mucous membranes Negative for trauma Eyes PERRL and EOMs intact bilaterally Neck supple Neck Narrative: Diffuse tenderness. No step-off sign appreciated. Head slightly leaning to the right. Resp normal respiratory effort and clear to auscultation bilaterally Cardio regular rate, regular rhythm and no murmurs GI GI Narrative: Abdomen is soft. Bowel sounds present. Tenderness palpation of the right side of the abdomen as well as the epigastric region Palpation: tender Back/Spine Back/Spine Narrative: Scoliosis present. Diffuse tenderness but no pinpoint tenderness appreciated Extremity normal to inspection General Extremety ED: Negative for edema or tenderness General Extremity: Negative for edema Neuro oriented x3 Neuro Narrative: Tremor of the extremities, left worse than right Sensorium / Orientation: alert Psych mental status grossly normal Psych Narrative: Tearful Skin no rashes or lesions noted and no wounds MDM MDM MDM Narrative Medical decision making narrative: Patient is a 73-year-old female presenting for worsening of her chronic back and neck pain. She also tells me she is having some pain in her right side of her abdomen. Patient appears quite uncomfortable. Abdominal exam is tender but is all quite nonspecific. Initially vital signs are normal however repeat temperature is quite elevated at 102.7. Rectal temperature is obtained which confirms this fever. In addition patient does have a significant leukocytosis of 17.5. Her lactate is normal. Blood cultures are obtained. Urinalysis is not particularly consistent with infection. Chest x-ray does not show any acute process. Her abdomen is tender and a CT of the abdomen pelvis is ordered. The patient she is complaining of myalgias, back and neck pain however it is quite nonspecific. She is acting appropriate and is not present like an encephalitis. She has a small area of erythema to her right lower extremity which could be consistent with an early cellulitis but it does not explain her degree of fever or leukocytosis. On repeat exam she continues to have a stable erythematous changes with no acute changes, lymphangitic streaking or significant pain with direct palpation. There is no overlying blisters. CT of the abdomen pelvis with IV contrast shows a lot of nonspecific changes and a possible colitis. I reviewed this with surgery on-call, Dr. Salmeron who recommends repeating the CT with oral contrast for better evaluation especially as we do not have a source of her fever and leukocytosis at this time. He does not see any acute vascular abnormalities on his interpretation. Repeat CT with oral contrast does not show any acute process. Patient was empirically given Zosyn in the emergency room. Case is discussed with admitting physician, hospitalist Dr. Brown, who accepts the patient for further observation. I think this is appropriate given her fever of unknown origin, leukocytosis and frail status to begin with. Patient is agreeable this plan of care. Patient does have an enlarged bladder on her repeat CT and decision is made to place a Maurer catheter for monitoring I's and O's. She has over 600 cc of urine out. Lab Data Labs: Laboratory Results - last 24 hr 03/21/23 03/21/23 03/21/23 16:20 16:20 16:20 WBC 17.5 H RBC 4.80 Hgb 13.9 Hct 43.5 MCV 90.6 MCH 29.0 MCHC 32.0 RDW Std Deviation 44.0 H RDW Coeff of Brady 13.2 Plt Count 217 MPV 9.1 Immature Gran % (Auto) 0.500 Neut % (Auto) 87.8 H Lymph % (Auto) 3.9 L [place] % (Auto) 7.4 Eos % (Auto) 0.1 Baso % (Auto) 0.3 Absolute Neuts (auto) 15.3 H Absolute Lymphs (auto) 0.69 L Nucleated RBC % 0 Sodium 139 Potassium 3.9 Chloride 109 H Carbon Dioxide 24.0 Anion Gap 6 BUN 20 H Creatinine 1.03 H Estim Creat Clear Calc 37.33 Est GFR (MDRD) Af Amer 67 Est GFR (MDRD) Non-Af 56 L BUN/Creatinine Ratio 19.4 Glucose 99 Lactic Acid 1.5 Calcium 8.7 Total Bilirubin 1.40 H AST 15 ALT 20 Alkaline Phosphatase 83 Total Protein 7.0 Albumin 3.5 Globulin 3.5 Albumin/Globulin Ratio 1.0 Lipase 22 Urine Color Urine Clarity Urine pH Ur Specific [place] Urine Protein Urine Glucose (UA) Urine Ketones Urine Occult Blood Urine Nitrite Urine Bilirubin Urine Urobilinogen Ur Leukocyte Esterase Urine RBC Urine WBC Ur Squamous Epith Cells Urine Bacteria Urine Mucus 03/21/23 16:42 WBC RBC Hgb Hct MCV MCH MCHC RDW Std Deviation RDW Coeff of [place] Plt Count MPV Immature Gran % (Auto) Neut % (Auto) Lymph % (Auto) [place] % (Auto) Eos % (Auto) Baso % (Auto) Absolute Neuts (auto) Absolute Lymphs (auto) Nucleated RBC % Sodium Potassium Chloride Carbon Dioxide Anion Gap BUN Creatinine Estim Creat Clear Calc Est GFR (MDRD) Af Amer Est GFR (MDRD) Non-Af BUN/Creatinine Ratio Glucose Lactic Acid Calcium Total Bilirubin AST ALT Alkaline Phosphatase Total Protein Albumin Globulin Albumin/Globulin Ratio Lipase Urine Color Yellow Urine Clarity Clear Urine pH 7.0 Ur Specific [place] 1.010 Urine Protein Negative Urine Glucose (UA) Normal Urine Ketones Negative Urine Occult Blood 10 H Urine Nitrite Negative Urine Bilirubin Negative Urine Urobilinogen 1 H Ur Leukocyte Esterase Negative Urine RBC 0 SEEN Urine WBC 0 SEEN Ur Squamous Epith Cells 0 SEEN Urine Bacteria 0 SEEN Urine Mucus 0 SEEN Radiography Diagnostic Testing: Clinical Impression(s) from Imaging Studies Cervical Spine CT 03/21/23 15:48 IMPRESSION: There is no definite acute fracture/dislocation. Degenerative changes. Electronically Signed: Rohan Zaragoza MD at 19:12 EDT Reading Location ID and State: [facility] / [place] , Service support , Lumbar Spine CT 03/21/23 15:48 IMPRESSION: 1. No change or definite acute abnormality. 2. Scoliosis and severe degenerative changes. Electronically Signed: Rohan Zaragoza MD at 19:10 EDT Reading Location ID and State: [facility] / [place] , Service support , Thoracic Spine CT 03/21/23 15:48 IMPRESSION: No acute abnormalities. Degenerative changes. Electronically Signed: Rohan Zaragoza MD at 19:16 EDT , Abdomen/Pelvis CT 03/21/23 15:50 IMPRESSION: Numerous chronic findings as above, but no definite acute abnormality. Electronically Signed: Rohan Zaragoza MD at 19:07 EDT , Chest X-Ray 03/21/23 18:15 IMPRESSION: No definite acute or significant abnormality seen. Electronically Signed: Rohan Zaragoza MD at 19:13 EDT , Abdomen CT 03/22/23 20:13 IMPRESSION: Repeat scan performed with oral contrast shows no findings of enteritis, colitis or diverticulitis. Timing of the scan allowing for emptying of the contrast from the stomach which remains decompressed, limiting evaluation of the stomach for pathological mural thickening. Electronically Signed: Stephen Goldberg MD at 1:00 EDT , Discharge Plan Triage Chief Complaint: Back ED Provider: Maura Bryan Dx/Rx/DC Orders Clinical Impression: Elevated lactic acid level, Fever, Myalgia Prescriptions: No Action gabapentin 100 mg capsule 300 mg PO QHS lisinopril 20 MG tablet 20 mg PO QHS omeprazole 20 mg capsule,delayed release(DR/EC) 20 mg PO BID acetaminophen 500 MG tablet 500 - 1,000 mg PO Q6H PRN PRN (Reason: Pain 1-10 Or Fever) ondansetron [ondansetron] 4 mg tablet,disintegrating 4 mg PO Q8H PRN PRN (Reason: Nausea) Qty: 10 0RF oxycodone-acetaminophen [oxycodone-acetaminophen] 5-325 mg tablet 0.5 tab PO Q6H PRN PRN (Reason: Pain) 3 Days Qty: 12 0RF bisacodyl [Dulcolax (bisacodyl)] 10 mg suppository 10 mg OR DAILY Qty: 12 0RF polyethylene glycol 3350 [Miralax] 17 gram/dose powder 17 g PO BID Qty: 119 0RF Rx Instructions: Take BID x 3 days for constipation then take daily after. Primary Care Provider: Sudarshan Galarza Referrals: Sudarshan Galarza MD [Primary Care Provider] -
--- NOTE | 2023-03-21 16:12 | ED.RN ---
per pt okay to give information to daughter Terra.
[2023-03-21] MEDS: Ondansetron 4 MG/2 ML Vial IV (16:14)
[2023-03-21] MEDS: fentaNYL 100 MCG/2 ML Ampul 50 MCG IV (16:14)
[2023-03-21 16:23] VITALS: TEMP 39.3
[2023-03-21 16:27] LABS: Absolute Lymphocyte Count 0.69 X10^3/uL (0.83-4.51); Absolute Neutrophil Count 15.3 X10^3/uL (2.0-7.7); Basophil# 0.05 X10^3/uL; Basophil% 0.3 % (0-1); Eosinophil# 0.02 X10^3/uL; Eosinophils% 0.1 % (0-5); Hematocrit 43.5 % (37-47); Hemoglobin 13.9 g/dL (12.0-15.0); Lymphocyte # 0.69 X10^3/ul (0.83-4.51); Lymphocyte % 3.9 % (19-41); Mean Corpuscular Volume 90.6 fL (81-99); Mean Platelet Vol. 9.1 fl (6.2-12.0); Monocyte# 1.29 X10^3/uL; Monocyte% 7.4 % (0-10); NRBC Flagged by Analyzer 0 % (0-5); Neutrophil # 15.33 X10^3/uL (2.7-7.7); Neutrophil % 87.8 % (47-70); Platelet Count 217 K/mm3 (150-450); RBC Distribution Width CV 13.2 % (11.6-14.6); White Blood Count 17.5 K/mm3 (4.4-11.0)
[2023-03-21 16:42] LABS: AST(SGOT) 15 U/L (15-37); Alanine Aminotransfer ALT/SGPT 20 U/L (13-56); Albumin, Serum 3.5 g/dL (3.2-5.0); Alkaline Phosphatase 83 U/L (45-117); Anion Gap 6 (5-15); BUN 20 mg/dL (7-18); BUN/Creat Ratio 19.4 RATIO (10-20); Calcium,Total 8.7 mg/dL (8.5-10.1); Chloride 109 mmol/L (98-107); Creatinine, Serum 1.03 mg/dL (0.55-1.02); EST Glomerular Filtration Rate 56 mL/min (>60); Est Glom Filt Rate - Afr Amer 67 mL/min (>60); Estimated Creatinine Clearance 37.33 ml/min; Globulin 3.5 g/dL (2.2-4.2); Glucose 99 mg/dL (74-106); Lipase 22 U/L (13-75); Potassium 3.9 mmol/L (3.5-5.1); Sodium Level 139 mmol/L (136-145)
[2023-03-21 16:52] LABS: Bacteria 0 SEEN /hpf (None Seen); Mucous, Urine 0 SEEN /hpf (<or=2+); Red Blood Cells-Urine 0 SEEN /hpf (0-5); Squamous Epithelial Cells - UA 0 SEEN /hpf (5-10); White Blood Cells 0 SEEN /hpf (0-5)
[2023-03-21 16:52] LABS: Lactic Acid 1.5 mmol/L (0.4-1.9)
[2023-03-21 16:53] LABS: Color, Urine Yellow (Yellow); Glucose, Dipstick Normal (Normal); Ketone-Dipstick Negative (Negative); Leukocyte Esterase-Dipstick Negative /ul (Negative); Nitrite-Dipstick Negative (Negative); Occult Blood-Urine 10 /ul (Negative); Protein-Dipstick Negative (Negative); Urine Bilirubin Dipstick Negative (Negative); Urine Clarity Clear (Clear); Urine Urobilinogen 1 mg/dl (Normal)
[2023-03-21] MEDS: Acetaminophen 650 MG Suppository RC (17:28)
[2023-03-21 17:50] VITALS: BP 142/92; PULSE 74; RESP 18; O2SAT 94
--- NOTE | 2023-03-21 18:15 | RAD_ITS ---
STUDY: X-RAY CHEST REASON FOR EXAM: Female, 73 years old. fever TECHNIQUE: Single AP portable view of the chest. COMPARISON: 05/15/2022. FINDINGS: The lungs are clear and expanded. There is no demonstrated pleural abnormality. Normal size heart. Normal mediastinum and marv. Normal visualized pulmonary arteries. There is atherosclerotic tortuosity of the aortic arch and descending thoracic aorta. There are diffuse degenerative changes of the visualized thoracic spine. Mild levoconvex scoliosis. There is degenerative osteoarthritis of the bilateral shoulders. There is no demonstrated abnormality of the visualized soft tissue structures of the upper abdomen. RAD/Chest 1 View (Portable) IMPRESSION: No definite acute or significant abnormality seen. Electronically Signed: Rohan Zaragoza MD at 19:13 EDT ,
[2023-03-21 19:50] VITALS: BP 123/62; PULSE 90; RESP 16; TEMP 37.9; O2SAT 95
[2023-03-21 21:00] VITALS: BP 122/70; PULSE 74; O2SAT 95
[2023-03-22] VITALS (7 sets, daily range): BP systolic 119–133; BP diastolic 68–76; PULSE 61–88; RESP 16–18; TEMP 36.5–37.2; O2SAT 94–100; BMI 24.3
--- NOTE | 2023-03-22 01:31 | PCM.HP.STD ---
HPI - General General Date of Admission: 03/22/23 Date of Service: 03/22/23 Chief Complaint: severe back pain, nausea, fever HPI Narrative MEL MERINO, is a 73 F who presents with severe neck and back pain and nausea with right sided abdominal pain. She had one episode of diarrhea Wednesday. She had no sick contacts or known food poisoning. Prior to coming to hospital she was sitting out in the sun, but she does not think the sun gave her the fever because she felt ill before this. She states that she lives at home and has assistance of her granddaughter.? She states that she has not able to sleep in a bed and she has to sit in recliner because her symptoms are so bad.? She has no recent instrumentation such as spinal injections. She has no history of clots. She lives at home with her grand daughter. She has not been treated recently with antibiotics. Upon arrival to ED she had a temp of 102.7 axillary which was confirmed with rectal temp correlation and she was given rectal tylenol and fever reduced to 100.3, while vitals remain stable and her lactic acid was in normal range. WBC 17.5 with left shift. Urine clear. CT abd/pelvis non revealing for abscess or a colitis. She was given Zosyn. [facility] Medical History Dehydration Essential hypertension Fibromyalgia Gastroenteritis GERD (gastroesophageal reflux disease) Hyperlipidemia Irritable bowel syndrome with both constipation and diarrhea Lumbar radiculopathy Nausea vomiting and diarrhea Non-smoker Parkinsons disease Renal calculus, right Scoliosis of thoracolumbar spine Situational depression Thoracic radiculopathy due to degenerative joint disease of spine Home Medications lisinopril 20 mg tablet 20 mg PO QHS blood pressure 04/09/17 [History Last Taken 05/14/22] omeprazole 20 mg capsule,delayed release 20 mg PO BID GERD 09/09/20 [History Last Taken 05/14/22] gabapentin 100 mg capsule 300 mg PO QHS 10/15/20 [History Last Taken 05/14/22] acetaminophen 500 mg tablet 500 - 1,000 mg PO Q6H PRN PRN Pain 1-10 Or Fever 01/10/21 [History Last Taken Unknown] ondansetron 4 mg disintegrating tablet 4 mg PO Q8H PRN PRN Nausea #10 tabs 11/15/22 [Rx Last Taken Unknown] oxycodone-acetaminophen 5 mg-325 mg tablet 0.5 tab PO Q6H PRN PRN Pain 3 days #12 TABLETS 11/15/22 [Rx Last Taken Unknown] bisacodyl 10 mg rectal suppository (Dulcolax (bisacodyl)) 10 mg [place] DAILY #12 ea 12/04/22 [Rx Last Taken Unknown] polyethylene glycol 3350 17 gram/dose oral powder (Miralax) 17 g PO BID #119 grams 12/04/22 [Rx Last Taken Unknown] Allergy/AdvReac Type Severity Reaction Status Date / Time nitrofurantoin Allergy Hives Verified 03/21/23 15:03 [From Macrobid] hydrocodone [From Vicodin] AdvReac Vomiting Verified 03/21/23 15:03 morphine AdvReac Vomiting Verified 03/21/23 15:03 pregabalin [From Lyrica] AdvReac Vomiting Verified 03/21/23 15:03 Family History Mother Dementia Father No cardiac disease Surgical History H/O ventral hernia repair History of cataract surgery History of cholecystectomy Hx laparoscopic cholecystectomy Social History Smoking Status: Never smoker Electronic Cigarette Use: not used second hand exposure: No alcohol intake: never substance use type: does not use ROS ROS Narrative pertinent positives and negatives in HPI Vital Signs Vital Signs Vital Signs: 03/21/23 15:04 03/21/23 16:23 03/21/23 17:50 Temperature 98.3 F 102.7 F H Temperature Source Temporal Axillary Pulse Rate 74 Respiratory Rate 18 Blood Pressure 142/92 H Blood Pressure Mean 108 Pulse Ox 94 Oxygen Delivery Method Room Air 03/21/23 19:50 03/21/23 21:00 03/22/23 00:00 Temperature 100.3 F H Temperature Source Oral Pulse Rate 90 74 61 Respiratory Rate 16 Blood Pressure 123/62 H 122/70 H Blood Pressure Mean 82 87 Pulse Ox 95 95 97 Oxygen Delivery Method Room Air Room Air Weight Weight: 141 lb 1.533 oz Body Mass Index (BMI) 25.0 Physical Exam Const well nourished General Appearance: cooperative HEENT normocephalic Neck no lymphadenopathy Resp normal respiratory effort Cardio regular rate and regular rhythm GI normal to inspection, nondistended, normoactive bowel sounds Skin Skin Narrative: Her lower leg (left) is erythematous and warm. It is not c/w DVT but regional inflammation may be cellutilis with skin breaks. Neuro Neuro Narrative: no nuchal rigidity Psych affect normal Results Medical Records Data Attestation: I reviewed the patient's medical records Lab / Micro Data Attestation: I reviewed the patient's lab results. Result Diagrams: 03/21/23 16:20 03/21/23 16:20 Labs: Laboratory Results - last 24 hr 03/21/23 16:20: WBC 17.5 H, RBC 4.80, Hgb 13.9, Hct 43.5, MCV 90.6, MCH 29.0, MCHC 32.0, RDW Std Deviation 44.0 H, RDW Coeff of Brady 13.2, Plt Count 217, MPV 9.1, Immature Gran % (Auto) 0.500, Neut % (Auto) 87.8 H, Lymph % (Auto) 3.9 L, [place] % (Auto) 7.4, Eos % (Auto) 0.1, Baso % (Auto) 0.3, Absolute Neuts (auto) 15.3 H, Absolute Lymphs (auto) 0.69 L, Nucleated RBC % 0 03/21/23 16:20: Sodium 139, Potassium 3.9, Chloride 109 H, Carbon Dioxide 24.0, Anion Gap 6, BUN 20 H, Creatinine 1.03 H, Estim Creat Clear Calc 37.33, Est GFR (MDRD) Af Amer 67, Est GFR (MDRD) Non-Af 56 L, BUN/Creatinine Ratio 19.4, Glucose 99, Calcium 8.7, Total Bilirubin 1.40 H, AST 15, ALT 20, Alkaline Phosphatase 83, Total Protein 7.0, Albumin 3.5, Globulin 3.5, Albumin/Globulin Ratio 1.0, Lipase 22 03/21/23 16:20: Lactic Acid 1.5 03/21/23 16:42: Urine Color Yellow, Urine Clarity Clear, Urine pH 7.0, Ur Specific [place] 1.010, Urine Protein Negative, Urine Glucose (UA) Normal, Urine Ketones Negative, Urine Occult Blood 10 H, Urine Nitrite Negative, Urine Bilirubin Negative, Urine Urobilinogen 1 H, Ur Leukocyte Esterase Negative, Urine RBC 0 SEEN, Urine WBC 0 SEEN, Ur Squamous Epith Cells 0 SEEN, Urine Bacteria 0 SEEN, Urine Mucus 0 SEEN Micro: Microbiology 03/21/23 16:42 Nasal Secretion SARS-CoV-2 Antigen (Rapid) - Final Radiology Impression Cervical Spine CT 03/21/23 15:48 IMPRESSION: There is no definite acute fracture/dislocation. Degenerative changes. Electronically Signed: Rohan Zaragoza MD at 19:12 EDT , Lumbar Spine CT 03/21/23 15:48 IMPRESSION: 1. No change or definite acute abnormality. 2. Scoliosis and severe degenerative changes. Electronically Signed: Rohan Zaragoza MD at 19:10 EDT Reading Location ID and State: [facility] / [place] , Service support , Thoracic Spine CT 03/21/23 15:48 IMPRESSION: No acute abnormalities. Degenerative changes. Electronically Signed: Rohan Zaragoza MD at 19:16 EDT Reading Location ID and State: [facility] / [place] , Service support , Abdomen/Pelvis CT 03/21/23 15:50 IMPRESSION: Numerous chronic findings as above, but no definite acute abnormality. Electronically Signed: Rohan Zaragoza MD at 19:07 EDT , Chest X-Ray 03/21/23 18:15 IMPRESSION: No definite acute or significant abnormality seen. Electronically Signed: Rohan Zaragoza MD at 19:13 EDT , Abdomen CT 03/22/23 20:13 IMPRESSION: Repeat scan performed with oral contrast shows no findings of enteritis, colitis or diverticulitis. Timing of the scan allowing for emptying of the contrast from the stomach which remains decompressed, limiting evaluation of the stomach for pathological mural thickening. Electronically Signed: Stephen Goldberg MD at 1:00 EDT , Assessment & Plan Assessment/Plan (1) HTN (hypertension): QUALIFIERS: Hypertension type: essential hypertension Qualified Code(s): I10 - Essential (primary) hypertension (2) Parkinsons disease: (3) Irritable bowel syndrome with both constipation and diarrhea: (4) Scoliosis of thoracolumbar spine: (5) Fever: (6) Fibromyalgia: (7) Chronic kidney disease (CKD) stage G3a/A2, moderately decreased glomerular filtration rate (GFR) between 45-59 mL/min/1.73 square meter and albuminuria creatinine ratio between 30-299 mg/g: PLAN: Plan Plan 1.?Fever. It improved here in ED after Tylenol. Source unknown but could be the cellulitis on her leg, considered DVT, considered meninigitis but unlikely. Does not exhibit respiratory symptoms. Also considered heat stroke b/c she was sitting out in the sun prior to coming in and it was hot today. Nausea may be secondary to her fever. No medication reactions known to cause fever. Continue Zosyn. Start vanc, pharmacy to dose. Follow blood cultures. Do not see a source on ct abdomen/pelvis nor chest radiograph. check ESR, CRP, lipase, and procalcitonin. Zofran for nausea. GIve 1 liter fluid maintenance which could possibly improve nausea. 2.? Scoliosis , history of chronic back pain-PT/OT.? Resume Tylenol. 3.? Parkinson's disease-follows with neurology.? Continue home medication regimen. 4.? Hypertension-stable, continue lisinopril. 5.? Chronic kidney disease stage IIIa-at baseline. DVT prophylaxis-heparin sc DNRCCA Charges/Coding Visit Charges Inpatient E&M: 23745 Init Hosp L2
[2023-03-22] MEDS: fentaNYL 100 MCG/2 ML Ampul 50 MCG IV (02:19)
[2023-03-22] MEDS: Ondansetron 4 MG/2 ML Vial IV (02:19)
--- NOTE | 2023-03-22 02:25 | ED.RN ---
granddaughter, blue cares for pt's medications. she will be available to provide that information later this morning. [phone]
[2023-03-22 02:27] LABS: Erythrocyte Sedimentation Rate < 1 mm/hr (0-30)
--- NOTE | 2023-03-22 02:30 | ED.RN ---
PROVIDED DTR, PATRICIA UPDATE ON PT'S ADMISSION.
[2023-03-22 02:47] LABS: Lipase 19 U/L (13-75)
[2023-03-22 02:53] LABS: ALB/GLOB Ratio 0.9 RATIO (0.9-2.4); AST(SGOT) 15 U/L (15-37); Alanine Aminotransfer ALT/SGPT 19 U/L (13-56); Albumin, Serum 3.1 g/dL (3.2-5.0); Alkaline Phosphatase 76 U/L (45-117); Anion Gap 6 (5-15); BUN 16 mg/dL (7-18); BUN/Creat Ratio 14.5 RATIO (10-20); Calcium,Total 8.1 mg/dL (8.5-10.1); Chloride 110 mmol/L (98-107); EST Glomerular Filtration Rate 51 mL/min (>60); Est Glom Filt Rate - Afr Amer 62 mL/min (>60); Estimated Creatinine Clearance 34.95 ml/min; Globulin 3.3 g/dL (2.2-4.2); Glucose 89 mg/dL (74-106); Protein, Total 6.4 g/dL (6.4-8.2); Sodium Level 140 mmol/L (136-145); Thyroid Stim Hormone (TSH) 0.63 uIU/mL (0.358-3.74)
[2023-03-22 03:01] LABS: Procalcitonin 0.25 ng/mL (0.00-0.09)
[2023-03-22] MEDS: 0.9% Saline Lock 10 ML Syringe IV (03:54)
[2023-03-22] MEDS: 0.9% Normal Saline 1,000 ML 100 ML IV ×2 (03:54→14:31)
--- NOTE | 2023-03-22 04:26 | PHA.PHARE_ITS ---
Consult Pharmacy has been consulted to manage selected antiobiotic: Vancomycin Type of Consult: New start Labs: Sodium 140 mmol/L (136-145) 03/22/23 02:10 Potassium 4.0 mmol/L (3.5-5.1) 03/22/23 02:10 Chloride 110 mmol/L (98-107) H 03/22/23 02:10 Carbon Dioxide 24.0 mmol/L (21.0-32.0) 03/22/23 02:10 Anion Gap 6 (5-15) 03/22/23 02:10 BUN 16 mg/dL (7-18) 03/22/23 02:10 Creatinine 1.10 mg/dL (0.55-1.02) H 03/22/23 02:10 Est GFR (MDRD) Af Amer 62 mL/min (>60) 03/22/23 02:10 Est GFR (MDRD) Non-Af 51 mL/min (>60) L 03/22/23 02:10 BUN/Creatinine Ratio 14.5 RATIO (10-20) 03/22/23 02:10 Glucose 89 mg/dL (74-106) 03/22/23 02:10 Microbiology: Microbiology 03/21/23 16:42 Nasal Secretion SARS-CoV-2 Antigen (Rapid) - Final Goal Trough: 15-20 mcg/mL Pharmacy Plan for Drug Dosing: Pharmacy Service will continue to monitor and adjust dosing as required. Medications Vancomycin HCl 1,500 mg/ (Sodium Chloride) 530 mls @ 250 mls/hr IV X1 ONE Stop: 03/22/23 05:37 Last Admin: 03/22/23 03:54 Dose: 250 mls/hr Vancomycin HCl 750 mg/ Sodium (Chloride) 265 mls @ 250 mls/hr IV Q24H [facility] Follow-Up Labs: Trough Vancomycin Labs to be done on [date and time ordered]: 03/24 @ 2778
[2023-03-22] MEDS: Ondansetron ODT 4 MG Tablet PO (06:31)
--- NOTE | 2023-03-22 08:09 | WOUNDNOTE ---
Was asked to see patient for abrasions to legs. patient has one small abrasion noted to the right lower leg. there is no drainage noted. some mild redness noted. patient denies pain. no other open areas noted at this time. washed legs and feet with soap and water. pat dry. heels elevated up off bed. no need for wound care at this time.
--- NOTE | 2023-03-22 08:27 | WOUNDNOTE ---
wound photo: right lower leg
[2023-03-22] MEDS: oxyCODONE 5 MG Tablet PO (08:56)
[2023-03-22] MEDS: Pantoprazole Sodium 20 MG Tablet PO ×2 (10:45→21:20)
[2023-03-22] MEDS: Ensure Plus High Protein 120 ML LIQUID PO ×3 (10:47→19:56)
[2023-03-22] MEDS: Heparin Injection (Vial) 5,000 UNIT/ML VIAL 5000 UNIT SC ×2 (10:48→21:20)
[2023-03-22] MEDS: Acetaminophen 500 MG Tablet PO (12:10)
--- NOTE | 2023-03-22 14:07 | CASEMGMT ---
RAUL SNOW in to discuss JACOB form with patient. RAUL SNOW explained JACOB form, patient voiced understanding. Pt signed form and filed in chart. Pt provided with a copy of signed JACOB form. Discussed pt home situation, she states she lives with her granddtr and great granddtr. States she recently was at [facility] for therapy, updated address. Pt states she has a FWW and a rollator at home as well as a tub seat and stretch bands and weights. She states her granddtr is with her 10/05 and performs exercises with her and manages her meds, assists with bathing and any other needs. Discussed therapy in the home and pt denies need for this. Pt is aware to notify RAUL SNOW should she change her mind. Patient had no further questions or concerns at this time.
--- NOTE | 2023-03-22 14:53 | CHAPLAIN ---
Type of Pastoral Visit _x__ Initial Visit ___ Follow-up Visit ___ On-call Visit ___ General Patient Visit ___ Spiritual Assessment ___ Family Conference ___ Bereavement ___ Rapid Response ___ Code Blue ___ Other (describe below) Pastoral Care Referral From _x__ Patient ___ Family ___ Nurse ___ Physician ___ Material Distributor ___ Computer Technology Trainer ___ Other (describe below) Sacrament/Intervention _x__ Active listening ___ Anointing ___ Anabaptist ___ Bereavement ___ Communion ___ Lauren exploration ___ ___ Life review _x__ Prayer ___ Reconciliation ___ Sacrament of Sick _x__ Supportive presence ___ Wedding ___ Other (describe below) Pastoral Comments patient is welcoming and is seeking presence as I'm just here and will be; pt concern expressed as 'not knowing what this new thing is and where it is coming from; pt welcomes prayer for same need; pt answers questions and participates in conversation; pt has some family support; pt has ongoing needs in health and asked about how she is dealing with them, she was very [id number] about pushing through it
--- NOTE | 2023-03-22 20:13 | CT_ITS ---
EXAM: CT ABDOMEN AND PELVIS WITHOUT INTRAVENOUS CONTRAST CLINICAL INDICATION: fever, diarrhea -- look at stomach and for colitis TECHNIQUE: Helically acquired images were obtained of the abdomen and pelvis without intravenous contrast. This CT exam was performed using one or more of the following dose reduction techniques: automated exposure control, adjustment of the mA and/or kV according to patient size, and/or use of iterative reconstruction technique. CONTRAST: Oral Gastrografin RADIATION DOSE: Total DLP: 296.98 mGy-cm. COMPARISON: Abdominal pelvic CT performed with IV contrast on 03/21/2023. FINDINGS: LOWER THORAX: Minimal dependent atelectasis is present in both lung bases, an incidental finding. No pleural effusion. Mild coronary artery calcification is present. No significant pericardial effusion. ABDOMEN: LIVER: Homogeneous. Right hepatic lobe lobe again noted to be elongated. GALLBLADDER AND BILE DUCTS: Not visualized. Normal caliber common bile duct. No calcified common duct stone. PANCREAS: Unremarkable. No focal cystic mass. SPLEEN: Unremarkable. Normal size without focal cystic or solid mass. ADRENALS: Unremarkable. No nodules. KIDNEYS AND URETERS: Excreted contrast fills the intrarenal collecting systems and ureters. The right intrarenal collecting system is unremarkable. There is tortuosity of the proximal right ureter. No right-sided hydronephrosis. On the left, there is mild pelvic caliectasis with a normal caliber left ureter suggesting a stricture of the proximal ureter; there is associated thinning of the left frontal cortex indicating a chronic process. No obstructing ureteral stones were seen on the prior nonenhanced scan. STOMACH AND BOWEL: Oral contrast was administered for the study. The contrast has passed from the stomach into the small bowel and colon, without evidence for small bowel obstruction. The stomach is decompressed, containing only trace of residual oral contrast. The lack of distention of the stomach makes it difficult to evaluate for gastric pathology. No periduodenal inflammatory changes or distended small bowel loops. The colon is normal in caliber; no colonic mural thickening is seen to indicate diverticulitis or colitis. PELVIS: APPENDIX: No evidence of acute appendicitis. BLADDER: Urinary bladder is distended with contrast and shows no mural thickening. REPRODUCTIVE: Atrophic uterus. No adnexal mass. ABDOMEN and PELVIS: INTRAPERITONEAL SPACE: Unremarkable. No ascites or other fluid collection. No free air. BONES/JOINTS: Osseous structures are demineralized. Extensive degenerative changes again noted affecting the lower thoracic and lumbar spine, as discussed on separate report. No acute osseous abnormality is identified. No suspicious lytic or blastic abnormality. SOFT TISSUES: Unremarkable. No discrete abdominal or pelvic wall hernia. VASCULATURE: Calcific abdominal aorta which is normal in caliber. LYMPH NODES: Unremarkable. No enlarged lymph nodes. CT/Abdomen/Pel W ORAL Cont Only IMPRESSION: Repeat scan performed with oral contrast shows no findings of enteritis, colitis or diverticulitis. Timing of the scan allowing for emptying of the contrast from the stomach which remains decompressed, limiting evaluation of the stomach for pathological mural thickening. Electronically Signed: Stephen Goldberg MD at 1:00 EDT ,
[2023-03-22] MEDS: Lisinopril 20 MG Tablet PO (21:20)
[2023-03-22] MEDS: Gabapentin 100 MG Capsule 300 MG PO (21:20)
[2023-03-23] MEDS: 0.9% Normal Saline 1,000 ML 100 ML IV ×3 (00:16→20:30)
[2023-03-23 02:15] VITALS: BP 152/89; PULSE 64; RESP 16; TEMP 36.7; O2SAT 98
[2023-03-23 06:57] LABS: Absolute Lymphocyte Count 1.29 X10^3/uL (0.83-4.51); Absolute Neutrophil Count 5.1 X10^3/uL (2.0-7.7); Basophil# 0.02 X10^3/uL; Basophil% 0.3 % (0-1); Eosinophil# 0.26 X10^3/uL; Eosinophils% 3.4 % (0-5); Hematocrit 38.5 % (37-47); Hemoglobin 11.9 g/dL (12.0-15.0); Lymphocyte # 1.29 X10^3/ul (0.83-4.51); Mean Corp Hgb Conc 30.9 g/dL (32-36); Mean Corpuscular Hgb 29.3 pg (27.0-32.0); Mean Corpuscular Volume 94.8 fL (81-99); Mean Platelet Vol. 9.5 fl (6.2-12.0); Monocyte# 0.89 X10^3/uL; Monocyte% 11.7 % (0-10); NRBC Flagged by Analyzer 0 % (0-5); Neutrophil # 5.07 X10^3/uL (2.7-7.7); Neutrophil % 66.9 % (47-70); Platelet Count 160 K/mm3 (150-450); RBC Distribution Width CV 13.5 % (11.6-14.6); RBC Distribution Width SD 47.5 fl (35.1-43.9); Red Blood Count 4.06 M/mm3 (4.2-5.4); White Blood Count 7.6 K/mm3 (4.4-11.0)
[2023-03-23 07:36] LABS: ALB/GLOB Ratio 0.9 RATIO (0.9-2.4); AST(SGOT) 12 U/L (15-37); Alanine Aminotransfer ALT/SGPT 13 U/L (13-56); Albumin, Serum 2.4 g/dL (3.2-5.0); Alkaline Phosphatase 68 U/L (45-117); Anion Gap 3 (5-15); BUN 21 mg/dL (7-18); BUN/Creat Ratio 19.6 RATIO (10-20); Calcium,Total 7.6 mg/dL (8.5-10.1); Chloride 114 mmol/L (98-107); Creatinine, Serum 1.07 mg/dL (0.55-1.02); EST Glomerular Filtration Rate 53 mL/min (>60); Est Glom Filt Rate - Afr Amer 64 mL/min (>60); Estimated Creatinine Clearance 37.58 ml/min; Globulin 2.6 g/dL (2.2-4.2); Glucose 98 mg/dL (74-106); Potassium 3.8 mmol/L (3.5-5.1); Sodium Level 142 mmol/L (136-145)
[2023-03-23 08:12] VITALS: BP 151/92; PULSE 61; RESP 16; TEMP 36.7; O2SAT 94
[2023-03-23] MEDS: Pantoprazole Sodium 20 MG Tablet PO ×2 (09:56→21:27)
[2023-03-23] MEDS: Heparin Injection (Vial) 5,000 UNIT/ML VIAL 5000 UNIT SC ×2 (09:56→21:28)
[2023-03-23] MEDS: Ensure Plus High Protein 120 ML LIQUID PO ×4 (10:02→21:27)
--- NOTE | 2023-03-23 10:43 | PCM.PN.HOSP ---
Subjective Subjective Doing well, no issues overnight. Per nursing reports she is very weak and was a two-person assist to get out of bed Objective Data Objective Data Vital Signs: Vital Signs Temp Pulse Resp BP Pulse Ox O2 Del Method 98.0 F 61 16 151/92 H 94 Room Air 03/23/23 08:12 03/23/23 08:12 03/23/23 08:12 03/23/23 08:12 03/23/23 08:12 03/23/23 08:12 Oxygen Delivery Method Room Air Weight: 137 lb 5.568 oz Body Mass Index (BMI) 24.3 Intake & Output: Intake and Output for Last 24 Hours 03/22/23 03/23/23 03/24/23 03:59 03:59 03:59 Intake Total 556.67 / 556.67 2656.67 / 2656.67 1016.67 / 1016.67 Output Total 1999 275 / 275 Balance 556.67 / 556.67 656.67 / 656.67 741.67 / 741.67 Lab / Micro Data Result Diagrams: 03/23/23 06:20 03/23/23 06:20 Labs: Laboratory Results - last 24 hr 03/23/23 06:20: WBC 7.6, RBC 4.06 L, Hgb 11.9 L, Hct 38.5, MCV 94.8, MCH 29.3, MCHC 30.9 L, RDW Std Deviation 47.5 H, RDW Coeff of Brady 13.5, Plt Count 160, MPV 9.5, Immature Gran % (Auto) 0.700, Neut % (Auto) 66.9, Lymph % (Auto) 17.0 L, [place] % (Auto) 11.7 H, Eos % (Auto) 3.4, Baso % (Auto) 0.3, Absolute Neuts (auto) 5.1, Absolute Lymphs (auto) 1.29, Nucleated RBC % 0 03/23/23 06:20: Sodium 142, Potassium 3.8, Chloride 114 H, Carbon Dioxide 25.0, Anion Gap 3 L, BUN 21 H, Creatinine 1.07 H, Estim Creat Clear Calc 37.58, Est GFR (MDRD) Af Amer 64, Est GFR (MDRD) Non-Af 53 L, BUN/Creatinine Ratio 19.6, Glucose 98, Calcium 7.6 L, Total Bilirubin 0.30, AST 12 L, ALT 13, Alkaline Phosphatase 68, Total Protein 5.0 L, Albumin 2.4 L, Globulin 2.6, Albumin/Globulin Ratio 0.9, TSH 0.90 Micro: Microbiology 03/21/23 16:42 Nasal Secretion SARS-CoV-2 Antigen (Rapid) - Final Physical Exam Narrative General: Alert, Oriented x3, Cooperative, No apparent distress HEENT: Atraumatic, PERRLA, EOMI, Normocephalic Oral: Moist Mucosa Neck: Supple, No JVD Lungs: Clear to auscultation, Normal air movement, No rhonchi, No wheeze, No rales Cardiovascular: Regular rate, Regular Rhythm, Normal S1, Normal S2, No murmurs Abdomen: Soft, Non Tender, Non-Distended, No Hepato-splenomegaly Extremities: Edema, Capillary Refill Less than 3 Seconds Skin: Improving erythema Musculoskeletal: No Tenderness to Palpation of Joints or Extremities Neurological: Cranial nerves II-XII grossly intact, Motor Exam 5/5 strength throughout, Sensory exam intact to light touch and pain Psych/Mental Status: Flat affect Assessment & Plan Assessment/Plan (1) HTN (hypertension): QUALIFIERS: Hypertension type: essential hypertension Qualified Code(s): I10 - Essential (primary) hypertension (2) Parkinsons disease: (3) Irritable bowel syndrome with both constipation and diarrhea: (4) Scoliosis of thoracolumbar spine: (5) Fever: (6) Fibromyalgia: (7) Chronic kidney disease (CKD) stage G3a/A2, moderately decreased glomerular filtration rate (GFR) between 45-59 mL/min/1.73 square meter and albuminuria creatinine ratio between 30-299 mg/g: PLAN: Plan 1. Fever and debility with mild abdominal pain ? CT of her abdomen and pelvis is unremarkable and does not show any acute pathology ? Possibility of cellulitis though redness is not impressive and she does have bilateral lower extremity edema ? She is currently on Zosyn, she did have an elevated white count of 17.5 on admission and that was down to 7.6 today ? Consult PT and OT for evaluation given weakness and debility 2.? Hypertension ? Stable ? Continue with lisinopril 3.? Chronic back pain ? Stable ? Managed with gabapentin which can be continued here 4.? GERD ? Stable ? Continue with PPI 5.? Parkinson's disease ? Stable ? She was diagnosed within the last year and needs to follow-up with her neurologist to be evaluated for more medication DVT: Heparin Charges/Coding Visit Charges Inpatient E&M: 54190 Subs Hosp L2
--- NOTE | 2023-03-23 11:13 | CASEMGMT ---
RAUL SNOW notified by pt nurse that pt now wishes to go to SNF. Reviewed therapy note from today. RAUL SNOW into pt room, pt sitting up in chair. Pt states that her dtr has called in and spoke with her and wants her to go to a SNF after this hospital stay. Pt dtr is Terra Mccormick. She states pt dtr has not been in to visit as she works 6 days a week. Pt states she is agreeable to go for therapy. She was recently dc'd from [facility] but she cannot recall when. She states it was not long ago. Pt states she would like to return back to [facility]. Updated SW.
[2023-03-23 14:16] VITALS: BP 127/79; PULSE 93; RESP 16; TEMP 36.7; O2SAT 96
[2023-03-23] MEDS: Acetaminophen 500 MG Tablet PO (14:31)
--- NOTE | 2023-03-23 15:05 | CASEMGMT ---
Social Work SW received referral for SNF placement. Phone call to Cathy Moy who states pt was at their facility from 12/04/22-01/02/23 and was discharged home. Pt does not qualify for SNF at this time. SW met with pt and daughter and introduced self and role of SW. Pt and dgt state pt had been doing very well at home since return home from [place] until a few days prior to hospital admission. At this time pt is weak and is unable to care for herself at home and needs rehabilitation prior to return home. SW spoke with pt and dgt regarding inpatient Rehab. Pt is agreeable and A list of [facility] providers including quality and resource use data and consistent with the patient?s preferred geographic region, medical needs, and insurance network were provided from the [employer] Guide. Pt preferred provider is [facility] Inpatient Rehab. Referral made to [facility] in [facility]. [facility] will notify [facility] when pt has been reviewed and determination of acceptance has been made. Pt updated. Plan: [facility] Inpatient Rehab, pending acceptance [facility]
--- NOTE | 2023-03-23 15:15 | CASEMGMT ---
Social Work SW spoke with pt and dgt regarding Advance Directives. Pt's dgt states she is pts HCPOA and pt does have a living will. SW requested documents be brought in for scanning into the medical record. [facility] Page
[2023-03-23] MEDS: oxyCODONE 5 MG Tablet PO (16:28)
[2023-03-23 20:50] VITALS: BP 148/85; PULSE 85; RESP 16; TEMP 37; O2SAT 98
[2023-03-23] MEDS: Gabapentin 100 MG Capsule 300 MG PO (21:27)
[2023-03-23] MEDS: Lisinopril 20 MG Tablet PO (21:28)
[2023-03-24 02:29] VITALS: BP 136/83; PULSE 67; RESP 16; TEMP 36.6; O2SAT 97
[2023-03-24 03:46] LABS: Absolute Neutrophil Count 5.1 X10^3/uL (2.0-7.7); Basophil# 0.04 X10^3/uL; Basophil% 0.5 % (0-1); Eosinophil# 0.28 X10^3/uL; Eosinophils% 3.5 % (0-5); Hematocrit 39.9 % (37-47); Hemoglobin 12.2 g/dL (12.0-15.0); Lymphocyte % 20.3 % (19-41); Mean Corp Hgb Conc 30.6 g/dL (32-36); Mean Corpuscular Hgb 28.4 pg (27.0-32.0); Mean Platelet Vol. 9.6 fl (6.2-12.0); Monocyte# 0.78 X10^3/uL; Monocyte% 9.9 % (0-10); NRBC Flagged by Analyzer 0 % (0-5); Neutrophil # 5.14 X10^3/uL (2.7-7.7); Platelet Count 161 K/mm3 (150-450); RBC Distribution Width CV 13.4 % (11.6-14.6); RBC Distribution Width SD 46.4 fl (35.1-43.9); Red Blood Count 4.29 M/mm3 (4.2-5.4); White Blood Count 7.9 K/mm3 (4.4-11.0)
[2023-03-24 04:01] LABS: Vancomycin, Trough Level 2.8 ug/mL (5.0-15.0)
[2023-03-24 04:11] LABS: ALB/GLOB Ratio 0.9 RATIO (0.9-2.4); AST(SGOT) 10 U/L (15-37); Alanine Aminotransfer ALT/SGPT 15 U/L (13-56); Albumin, Serum 2.4 g/dL (3.2-5.0); Alkaline Phosphatase 80 U/L (45-117); Anion Gap 2 (5-15); BUN 17 mg/dL (7-18); BUN/Creat Ratio 19.7 RATIO (10-20); Calcium,Total 7.7 mg/dL (8.5-10.1); Chloride 117 mmol/L (98-107); Creatinine, Serum 0.86 mg/dL (0.55-1.02); EST Glomerular Filtration Rate 68 mL/min (>60); Est Glom Filt Rate - Afr Amer 82 mL/min (>60); Estimated Creatinine Clearance 46.76 ml/min; Globulin 2.8 g/dL (2.2-4.2); Glucose 99 mg/dL (74-106); Potassium 3.9 mmol/L (3.5-5.1); Protein, Total 5.2 g/dL (6.4-8.2); Sodium Level 144 mmol/L (136-145); Thyroid Stim Hormone (TSH) 2.22 uIU/mL (0.358-3.74)
[2023-03-24] MEDS: 0.9% Normal Saline 1,000 ML 100 ML IV (05:38)
--- NOTE | 2023-03-24 08:58 | PN.HOSP_ITS ---
Subjective Subjective Doing well, no issues overnight Objective Data Objective Data Vital Signs: Vital Signs Temp Pulse Resp BP Pulse Ox O2 Del Method 97.8 F 67 16 136/83 H 97 Room Air 03/24/23 02:03/24/23 02:29 03/24/23 02:29 03/24/23 02:29 03/24/23 02:29 03/24/23 02:29 Oxygen Delivery Method Room Air Weight: 137 lb 5.568 oz Body Mass Index (BMI) 24.3 Intake & Output: Intake and Output for Last 24 Hours 03/23/23 03/24/23 03/25/23 03:59 03:59 03:59 Intake Total 2656.67 / 2656.67 2116.67 / 2116.67 913.33 / 913.33 Output Total 1999 1775 / 1775 450 / 450 Balance 656.67 / 656.67 341.67 / 341.67 463.33 / 463.33 Lab / Micro Data Result Diagrams: 03/24/23 03:37 03/24/23 03:37 Labs: Laboratory Results - last 24 hr 03/24/23 03:37: WBC 7.9, RBC 4.29, Hgb 12.2, Hct 39.9, MCV 93.0, MCH 28.4, MCHC 30.6 L, RDW Std Deviation 46.4 H, RDW Coeff of Brady 13.4, Plt Count 161, MPV 9.6, Immature Gran % (Auto) 0.800, Neut % (Auto) 65.0, Lymph % (Auto) 20.3, Fajardo % (Auto) 9.9, Eos % (Auto) 3.5, Baso % (Auto) 0.5, Absolute Neuts (auto) 5.1, Absolute Lymphs (auto) 1.60, Nucleated RBC % 0 03/24/23 03:37: Sodium 144, Potassium 3.9, Chloride 117 H, Carbon Dioxide 25.0, Anion Gap 2 L, BUN 17, Creatinine 0.86, Estim Creat Clear Calc 46.76, Est GFR (MDRD) Af Amer 82, Est GFR (MDRD) Non-Af 68, BUN/Creatinine Ratio 19.7, Glucose 99, Calcium 7.7 L, Total Bilirubin 0.30, AST 10 L, ALT 15, Alkaline Phosphatase 80, Total Protein 5.2 L, Albumin 2.4 L, Globulin 2.8, Albumin/Globulin Ratio 0.9, TSH 2.22 03/24/23 03:37: Vancomycin Trough 2.8 L Micro: Microbiology 03/21/23 16:42 Nasal Secretion SARS-CoV-2 Antigen (Rapid) - Final Physical Exam Narrative General: Alert, Oriented x3, Cooperative, No apparent distress HEENT: Atraumatic, PERRLA, EOMI, Normocephalic Oral: Moist Mucosa Neck: Supple, No JVD Lungs: Clear to auscultation, Normal air movement, No rhonchi, No wheeze, No rales Cardiovascular: Regular rate, Regular Rhythm, Normal S1, Normal S2, No murmurs Abdomen: Soft, Non Tender, Non-Distended, No Hepato-splenomegaly Extremities: Edema, Capillary Refill Less than 3 Seconds Skin: Improving erythema Musculoskeletal: No Tenderness to Palpation of Joints or Extremities Neurological: Cranial nerves II-XII grossly intact, Motor Exam 5/5 strength throughout, Sensory exam intact to light touch and pain Psych/Mental Status: Flat affect Assessment & Plan Assessment/Plan (1) HTN (hypertension): QUALIFIERS: Hypertension type: essential hypertension Qualified Code(s): I10 - Essential (primary) hypertension (2) Parkinsons disease: (3) Irritable bowel syndrome with both constipation and diarrhea: (4) Scoliosis of thoracolumbar spine: (5) Fever: (6) Fibromyalgia: (7) Chronic kidney disease (CKD) stage G3a/A2, moderately decreased glomerular filtration rate (GFR) between 45-59 mL/min/1.73 square meter and albuminuria creatinine ratio between 30-299 mg/g: PLAN: Plan 1. Fever and debility with mild abdominal pain ? CT of her abdomen and pelvis is unremarkable and does not show any acute pathology ? Possibility of cellulitis though redness is not impressive and she does have bilateral lower extremity edema ? She is currently on Zosyn, she did have an elevated white count of 17.5 on admission and that was down to 7.9 today ? Consult PT and OT for evaluation given weakness and debility 2.? Hypertension ? Stable ? Continue with lisinopril 3.? Chronic back pain ? Stable ? Managed with gabapentin which can be continued here 4.? GERD ? Stable ? Continue with PPI 5.? Parkinson's disease ? Stable ? She was diagnosed within the last year and needs to follow-up with her neurologist to be evaluated for more medication, unclear as to why she is not on the moment DVT: Heparin Charges/Coding Visit Charges Inpatient E&M: 52873 Subs Hosp L2
[2023-03-24 09:00] VITALS: BP 138/75; PULSE 73; RESP 16; TEMP 36.7; O2SAT 95
--- NOTE | 2023-03-24 10:24 | PCM.TXEXTCAR ---
Diet Diet Order/Speech Therapy: 03/22/23 01:53 Diet: Regular - General Food consistency:: Regular Liquid Consistency:: Regular/Thin Routine Orders/Code Status Routine Lab Work: CBC and BMP Code Status: DNRCC-A Wound(s) bilateral lower legs: Wound Type: Abrasion Therapies Physical Therapy: Eval and Treat Occupational Therapy: Eval and Treat Problem/Diagnosis (1) HTN (hypertension): Status: Chronic Code(s): I10 - Essential (primary) hypertension (2) Parkinsons disease: Status: Acute Code(s): G20 - Parkinson's disease (3) Irritable bowel syndrome with both constipation and diarrhea: Status: Acute Code(s): K58.2 - Mixed irritable bowel syndrome (4) Scoliosis of thoracolumbar spine: Status: Acute Code(s): M41.9 - Scoliosis, unspecified (5) Fever: Status: Acute Code(s): R50.9 - Fever, unspecified (6) Fibromyalgia: Status: Acute Code(s): M79.7 - Fibromyalgia (7) Chronic kidney disease (CKD) stage G3a/A2, moderately decreased glomerular filtration rate (GFR) between 45-59 mL/min/1.73 square meter and albuminuria creatinine ratio between 30-299 mg/g: Status: Chronic Code(s): N18.31 - Chronic kidney disease, stage 3a Plan 1. Fever and debility with mild abdominal pain ? CT of her abdomen and pelvis is unremarkable and does not show any acute pathology ? Possibility of cellulitis though redness is not impressive and she does have bilateral lower extremity edema ? She is currently on Zosyn, she did have an elevated white count of 17.5 on admission and that was down to 7.9 today ? Consult PT and OT for evaluation given weakness and debility 2.? Hypertension ? Stable ? Continue with lisinopril 3.? Chronic back pain ? Stable ? Managed with gabapentin which can be continued here 4.? GERD ? Stable ? Continue with PPI 5.? Parkinson's disease ? Stable ? She was diagnosed within the last year and needs to follow-up with her neurologist to be evaluated for more medication, unclear as to why she is not on the moment DVT: Heparin Allergies/Procedures Done in Hospital Allergies nitrofurantoin [From Macrobid] Allergy (Verified 03/21/23 15:03) Hives hydrocodone [From Vicodin] Adverse Reaction (Verified 03/21/23 15:03) Vomiting morphine Adverse Reaction (Verified 03/21/23 15:03) Vomiting pregabalin [From Lyrica] Adverse Reaction (Verified 03/21/23 15:03) Vomiting Procedures: None Type of Care/Length of Stay Estimated LOS: Convalescent Care Less Than 30 days Type of Care Needed: Skilled Rehab Potential: Good Prognosis: Good Additional Orders/Day of Discharge Day of Discharge: 03/24/23 Dietary and Speech Recommendations Dietitian Recommendations/Changes: Continue Regular diet with EPHP to optimize oral intakes and provide supplemental energy. Discharge Plan Admission Admit Date/Time: 03/22/23 04:43 Attending Provider: Garrett Downey Primary Care Provider: Sudarshan Galarza Consulting Providers: Scott Brown Discharge Orders/Prescriptions Prescriptions: New cephalexin 500 mg capsule 500 mg PO TID 5 Days Qty: 15 0RF Continued gabapentin 100 mg capsule 300 mg PO TID Rx Instructions: for 30 days. started 03/08/23 lisinopril 20 MG tablet 20 mg PO QHS acetaminophen 500 MG tablet 500 mg PO Q8H PRN PRN (Reason: Pain 1-10 Or Fever) ondansetron 4 mg tablet,disintegrating 4 mg PO Q8H PRN PRN (Reason: Nausea) Qty: 10 0RF polyethylene glycol 3350 [Miralax] 17 gram Powder In Packet 17 g PO DAILY Rx Instructions: until stools are regular up to two (2) weeks pantoprazole 40 mg Tablet,Delayed Release (Dr/Ec) 40 mg PO DAILY sertraline 50 mg Tablet 50 mg PO DAILY simethicone 80 mg Tablet,Chewable 80 mg PO TID Referrals / Follow Up: Sudarshan Galarza MD [Primary Care Provider] - Disposition Disposition (needs filled in before D/C Order can be placed): Long Term Facility (1) HTN (hypertension) Qualifiers: Hypertension type: essential hypertension Qualified Code(s): I10 - Essential (primary) hypertension
--- NOTE | 2023-03-24 10:35 | PHA.DC.MR ---
Pharmacy Service has performed discharge medication reconciliation for this patient. The patient's discharge medication list was reviewed for discrepancies and discrepancies were resolved. Home Medications lisinopril 20 mg tablet 20 mg PO QHS blood pressure 04/09/17 gabapentin 100 mg capsule 300 mg PO TID 10/15/20 acetaminophen 500 mg tablet 500 mg PO Q8H PRN PRN Pain 1-10 Or Fever 01/10/21 ondansetron 4 mg disintegrating tablet 4 mg PO Q8H PRN PRN Nausea #10 tabs 11/15/22 pantoprazole 40 mg tablet,delayed release 40 mg PO DAILY 03/22/23 polyethylene glycol 3350 17 gram oral powder packet (Miralax) 17 g PO DAILY 03/22/23 sertraline 50 mg tablet 50 mg PO DAILY 03/22/23 simethicone 80 mg chewable tablet 80 mg PO TID 03/22/23 cephalexin 500 mg capsule 500 mg PO TID 5 days #15 caps 03/24/23
[2023-03-24] MEDS: Ensure Plus High Protein 120 ML LIQUID PO (10:37)
[2023-03-24] MEDS: Heparin Injection (Vial) 5,000 UNIT/ML VIAL 5000 UNIT SC (10:38)
[2023-03-24] MEDS: Pantoprazole Sodium 20 MG Tablet PO (10:38)
--- NOTE | 2023-03-24 10:38 | CASEMGMT ---
Social Work Phone call from [facility] in Inpatient Rehab and pt has been accepted and can be admitted today. Physician updated and pt is ready for discharge. Orders faxed to [facility]. SW met with pt and updated on discharge plan and she is agreeable to discharge. Phone call to pt teodora Ellison and notified of discharge to today. Nursing updated. Disposition: [facility] Inpatient Rehab [facility]
[2023-03-24 10:52] VITALS: BP 138/75; PULSE 73; RESP 18; TEMP 36.7; O2SAT 95
--- NOTE | 2023-03-24 12:15 | PCM.DC.SUM ---
Providers Date of Admission: 03/22/23 Primary Care Physician: Dr. Sudarshan Galarza MD Consultations 03/22/23 01:52 Consult: Onc/Wound/in home aide Routine Comment: Reason for Consult:: evaluation of lower leg abrasions Reason For Visit: FEVER, LEUKOCYTOSIS, BACK AND NECK PAIN Diagnosis Discharge Diagnosis (1) HTN (hypertension): Status: Chronic Code(s): I10 - Essential (primary) hypertension Qualifiers: Hypertension type: essential hypertension Qualified Code(s): I10 - Essential (primary) hypertension (2) Parkinsons disease: Status: Acute Code(s): G20 - Parkinson's disease (3) Irritable bowel syndrome with both constipation and diarrhea: Status: Acute Code(s): K58.2 - Mixed irritable bowel syndrome (4) Scoliosis of thoracolumbar spine: Status: Acute Code(s): M41.9 - Scoliosis, unspecified (5) Fever: Status: Acute Code(s): R50.9 - Fever, unspecified (6) Fibromyalgia: Status: Acute Code(s): M79.7 - Fibromyalgia (7) Chronic kidney disease (CKD) stage G3a/A2, moderately decreased glomerular filtration rate (GFR) between 45-59 mL/min/1.73 square meter and albuminuria creatinine ratio between 30-299 mg/g: Status: Chronic Code(s): N18.31 - Chronic kidney disease, stage 3a Plan 1. Fever and debility with mild abdominal pain ? CT of her abdomen and pelvis is unremarkable and does not show any acute pathology ? Possibility of cellulitis though redness is not impressive and she does have bilateral lower extremity edema ? She is currently on Zosyn, she did have an elevated white count of 17.5 on admission and that was down to 7.9 today ? Consult PT and OT for evaluation given weakness and debility 2.? Hypertension ? Stable ? Continue with lisinopril 3.? Chronic back pain ? Stable ? Managed with gabapentin which can be continued here 4.? GERD ? Stable ? Continue with PPI 5.? Parkinson's disease ? Stable ? She was diagnosed within the last year and needs to follow-up with her neurologist to be evaluated for more medication, unclear as to why she is not on the moment DVT: Heparin Medications at Discharge Home Medications lisinopril 20 mg tablet 20 mg PO QHS blood pressure 04/09/17 gabapentin 100 mg capsule 300 mg PO TID 10/15/20 acetaminophen 500 mg tablet 500 mg PO Q8H PRN PRN Pain 1-10 Or Fever 01/10/21 ondansetron 4 mg disintegrating tablet 4 mg PO Q8H PRN PRN Nausea #10 tabs 11/15/22 pantoprazole 40 mg tablet,delayed release 40 mg PO DAILY 03/22/23 polyethylene glycol 3350 17 gram oral powder packet (Miralax) 17 g PO DAILY 03/22/23 sertraline 50 mg tablet 50 mg PO DAILY 03/22/23 simethicone 80 mg chewable tablet 80 mg PO TID 03/22/23 cephalexin 500 mg capsule 500 mg PO TID 5 days #15 caps 03/24/23 Hospital Course Operations None Procedures None Summary of Care Provided Minutes Spent on Discharge: 37 Hospital Course: Per HPI: MEL MERINO, is a 73 F who presents with severe neck and back pain and nausea with right sided abdominal pain. She had one episode of diarrhea Wednesday. She had no sick contacts or known food poisoning. Prior to coming to hospital she was sitting out in the sun, but she does not think the sun gave her the fever because she felt ill before this. She states that she lives at home and has assistance of her granddaughter.? She states that she has not able to sleep in a bed and she has to sit in recliner because her symptoms are so bad.? She has no recent instrumentation such as spinal injections. She has no history of clots. She lives at home with her grand daughter. She has not been treated recently with antibiotics. Upon arrival to ED she had a temp of 102.7 axillary which was confirmed with rectal temp correlation and she was given rectal tylenol and fever reduced to 100.3, while vitals remain stable and her lactic acid was in normal range. WBC 17.5 with left shift. Urine clear. CT abd/pelvis non revealing for abscess or a colitis. She was given Zosyn. Hospital Course: 1. Fever and debility with mild abdominal pain left lower extremity cellulitis?73-year-old female presented to the hospital with multiple variable complaints and erythema over her left lower extremity. She did have an elevated white count on admission which resolved very quickly with the initiation of antibiotics. The redness and erythema have completely resolved and we will discharge for 5 more days on Keflex [address] scans of her abdomen and pelvis were negative for any acute issues for her abdominal pain. Fevers resolved. I discussed with her the plan for discharge today she expressed understanding of the risk benefits going to the [facility] and would like to go today. I do recommend that she follow-up with her PCP as an outpatient on discharge for SNF. 2. Hypertension, chronic back pain, GERD, Parkinson's disease are all chronic medical conditions which complicate her care. Her home medications were continued where appropriate. Of note she says that she is not sure why she is not on any medications for her Parkinson's, during my evaluation today she did not have a tremor and I pointed out that it may just be that her symptoms are so mild at which point she started having a significant tremor while holding her breakfast as I was leaving the room her tremor stopped and she was able to feed herself. I do recommend outpatient follow-up with neurology as well on discharge Weight / BMI Weight Weight: 137 lb 5.568 oz Body Mass Index (BMI) 24.3 ABG / Lab / Microbiology Data Result Diagrams: 03/24/23 03:37 03/24/23 03:37 Laboratory: Laboratory Results - last 24 hr 03/24/23 03:37: WBC 7.9, RBC 4.29, Hgb 12.2, Hct 39.9, MCV 93.0, MCH 28.4, MCHC 30.6 L, RDW Std Deviation 46.4 H, RDW Coeff of Brady 13.4, Plt Count 161, MPV 9.6, Immature Gran % (Auto) 0.800, Neut % (Auto) 65.0, Lymph % (Auto) 20.3, [place] % (Auto) 9.9, Eos % (Auto) 3.5, Baso % (Auto) 0.5, Absolute Neuts (auto) 5.1, Absolute Lymphs (auto) 1.60, Nucleated RBC % 0 03/24/23 03:37: Sodium 144, Potassium 3.9, Chloride 117 H, Carbon Dioxide 25.0, Anion Gap 2 L, BUN 17, Creatinine 0.86, Estim Creat Clear Calc 46.76, Est GFR (MDRD) Af Amer 82, Est GFR (MDRD) Non-Af 68, BUN/Creatinine Ratio 19.7, Glucose 99, Calcium 7.7 L, Total Bilirubin 0.30, AST 10 L, ALT 15, Alkaline Phosphatase 80, Total Protein 5.2 L, Albumin 2.4 L, Globulin 2.8, Albumin/Globulin Ratio 0.9, TSH 2.22 03/24/23 03:37: Vancomycin Trough 2.8 L Microbiology: Microbiology 03/21/23 16:42 Nasal Secretion SARS-CoV-2 Antigen (Rapid) - Final Meaningful Use Info Meaningful Use Diagnoses (Choose all that apply): None applicable Discharge Plan Admission Admit Date/Time: 03/22/23 04:43 Attending Provider: Garrett Downey Primary Care Provider: Sudarshan Galarza Consulting Providers: Scott Brown Discharge Orders/Prescriptions Prescriptions: New cephalexin 500 mg capsule 500 mg PO TID 5 Days Qty: 15 0RF Continued gabapentin 100 mg capsule 300 mg PO TID Rx Instructions: for 30 days. started 03/08/23 lisinopril 20 MG tablet 20 mg PO QHS acetaminophen 500 MG tablet 500 mg PO Q8H PRN PRN (Reason: Pain 1-10 Or Fever) ondansetron 4 mg tablet,disintegrating 4 mg PO Q8H PRN PRN (Reason: Nausea) Qty: 10 0RF polyethylene glycol 3350 [Miralax] 17 gram Powder In Packet 17 g PO DAILY Rx Instructions: until stools are regular up to two (2) weeks pantoprazole 40 mg Tablet,Delayed Release (Dr/Ec) 40 mg PO DAILY sertraline 50 mg Tablet 50 mg PO DAILY simethicone 80 mg Tablet,Chewable 80 mg PO TID Referrals / Follow Up: Sudarshan Galarza MD [Primary Care Provider] - Disposition Disposition (needs filled in before D/C Order can be placed): Longterm Facility Charges/Coding Visit Charges Inpatient E&M: 28687 Disch Hosp >30min
== END 2023-03-24 12:15 | disposition skilled nursing facility (03) ==
LOC: ED 15:32 → MS3 03-22 05:45
PROVIDERS: Admitting Provider Hospitalist; Emergency Provider Emergency Medicine; PCP Family Medicine; Visit Provider Family Medicine
DX: R50.9 Fever, unspecified (principal); G20 Parkinson's disease; N18.31 Chronic kidney disease, stage 3a; M41.85 Other forms of scoliosis, thoracolumbar region; K21.9 Gastro-esophageal reflux disease without esophagitis; E78.5 Hyperlipidemia, unspecified; K58.0 Irritable bowel syndrome with diarrhea; I12.9 Hypertensive chronic kidney disease with stage 1 through stage 4 chronic kidney disease, or unspecified chronic kidney disease; K58.2 Mixed irritable bowel syndrome; M79.7 Fibromyalgia; R53.81 Other malaise; M54.2 Cervicalgia; R10.9 Unspecified abdominal pain; Z79.899 Other long term (current) drug therapy; G89.29 Other chronic pain; L03.116 Cellulitis of left lower limb
CPT/HCPCS: 51702; 99285; 36415; 71045; 72125; 72128; 72131; 74176; 74177; 80053; 80202; 81001; 83605; 83690; 84145; 84443; 85025; 85652; 86140; 87040; 87811; 97110; 97116; 97162; 97166; 97530; 97535; 97802; J7030; J7040; J7050; Q9967; A4216; J2405

== ENCOUNTER 2023-03-24 12:30 | Inpatient (IN) | payer MEDICARE, BC, SELFPAY ==
[2023-03-24 12:43] VITALS: BP 150/82; PULSE 86; RESP 20; TEMP 36.8; O2SAT 97; BMI 26.1
--- NOTE | 2023-03-24 13:17 | PCM.HP.STD ---
[facility] - General General Date of Admission: 03/24/23 Date of Service: 03/24/23 Chief Complaint: Back pain and heavy legs. Unable to walk. [facility] Narrative KATHERYN MERINO, is a 73 YO F with a past medical history of hypertension, fibromyalgia, GERD, hyperlipidemia, irritable bowel syndrome, Parkinson's disease (untreated) history of nephrolithiasis, scoliosis of the thoracic or lumbar spine and depression who presented to the Ed at [facility] on 03/21/2023 complaining of back pain, right-sided abdominal pain and nausea. Temp in the ER was 102.7 axillary and this was confirmed with a rectal temp. White blood cell count was elevated at 17.5 with 88% neutrophils. BUN was elevated at 20 with a creatinine of 1.03 which is within her baseline. Lactic acid was normal at 1.5. LFTs were unremarkable with the exception of an elevated total bilirubin which I suspect is due to Glibert's since it has been elevated in the past with stress. Calcium was low at 7.6 but when corrected for hypoalbuminemia the calcium is within normal limits. CT scan of the cervical spine showed degenerative changes. CT scan of the thoracic spine showed increased kyphosis and levoscoliosis. There were degenerative changes and diffuse demineralization. CT scan of the lumbar spine showed stable multilevel spondylosis with mild to moderate dextro convexity scoliosis. CT scan of the abdomen and pelvis showed hepatomegaly with mild intrahepatic bile duct distention. The gallbladder was absent. There was stable chronic atrophy of the left kidney and a nonobstructing stone in the upper pole of the right kidney. There was moderate diffuse fecal retention. Chest x-ray showed no infiltrates. On PE she was noted to have erythema and increased warmth of the distal lower extremity when she was diagnosed with cellulitis. She was admitted to the hospitalist service and started on Zosyn and vancomycin. She improved over the next few days and she was seen by PT/OT for generalized weakness. Acute rehab was recommended and she was transferred to the acute inpt unit on 03/24/23 for 3 hours of therapy daily to restore Function/independence at or near her level prior to admission to the hospital. Katheryn denies any recent falls. She has no pets at home. She lives with her granddaughter Hardy and her great granddaughter Roopa. She has never had an MRI of her back at this institution. She has also never had a DEXA at this facility. [facility] Medical History Fibromyalgia GERD (gastroesophageal reflux disease) Irritable bowel syndrome with both constipation and diarrhea Lumbar radiculopathy Parkinsons disease Renal calculus, right Scoliosis of thoracolumbar spine Situational depression Thoracic radiculopathy due to degenerative joint disease of spine Home Medications lisinopril 20 mg tablet 20 mg PO QHS blood pressure 04/09/17 [History Last Taken 05/14/22] gabapentin 100 mg capsule 300 mg PO TID 10/15/20 [History Last Taken 05/14/22] acetaminophen 500 mg tablet 500 mg PO Q8H PRN PRN Pain 1-10 Or Fever 01/10/21 [History Last Taken Unknown] ondansetron 4 mg disintegrating tablet 4 mg PO Q8H PRN PRN Nausea #10 tabs 11/15/22 [Rx Last Taken Unknown] pantoprazole 40 mg tablet,delayed release 40 mg PO DAILY GERD 03/22/23 [History Last Taken Unknown] polyethylene glycol 3350 17 gram oral powder packet (Miralax) 17 g PO DAILY Stool softner 03/22/23 [History Last Taken Unknown] sertraline 50 mg tablet 50 mg PO DAILY Depression 03/22/23 [History Last Taken Unknown] simethicone 80 mg chewable tablet 80 mg PO TID Gas 03/22/23 [History Last Taken Unknown] cephalexin 500 mg capsule 500 mg PO TID Antibiotic 03/24/23 [History Last Taken Unknown] Allergy/AdvReac Type Severity Reaction Status Date / Time nitrofurantoin Allergy Hives Verified 03/21/23 15:03 [From Macrobid] hydrocodone [From Vicodin] AdvReac Vomiting Verified 03/21/23 15:03 morphine AdvReac Vomiting Verified 03/21/23 15:03 pregabalin [From Lyrica] AdvReac Vomiting Verified 03/21/23 15:03 Family History Mother Dementia Father No cardiac disease Surgical History H/O ventral hernia repair History of cataract surgery History of cholecystectomy Hx laparoscopic cholecystectomy Social History (Updated 03/25/23 @ 10:[address] Jasmina Alvarado DO) household members: family and other details: Her granddaughter Hardy lives with her and also Hardy is daughter, Roopa housing: house number of children: 3 pets and animals: No history of recent travel: No Smoking Status: Never smoker Electronic Cigarette Use: not used second hand exposure: No alcohol intake: never substance use type: does not use ROS Constitutional Constitutional: Reports fever(s) and weakness; Denies anorexia, change in weight, chills, fatigue, headache(s) or night sweats Eyes Eyes: Denies blurry vision, change in vision, eye pain or loss of vision ENT HEENT: Denies abnormal hearing, dysphagia, headache(s), hearing loss, nasal congestion or sore throat Cardiovascular Cardiovascular: Reports edema; Denies chest pain, dyspnea on exertion, lightheadedness, orthopnea, palpitations, paroxysmal nocturnal dyspnea or syncope Respiratory/Chest Respiratory/Chest: Denies cough, dyspnea, shortness of breath at rest, shortness of breath with exertion or wheezing Gastrointestinal Gastrointestinal: Reports abdominal pain, constipation, diarrhea, dyspepsia and nausea; Denies hematemesis, hematochezia or vomiting Genitourinary Genitourinary: Denies dysuria, hematuria, nocturia, urinary frequency, urinary hesitancy, urinary incontinence or urinary urgency Musculoskeletal Musculoskeletal: Reports back pain, joint pain, joint swelling, neck pain and other Details: She tells me that her legs feel heavy and numb. Back Pain is constant and does not get worse with sitting, standing and walking. The pain in her neck is at the base of the skull and is reproducible to palpation at the insertion site for the Trapezius muscles on the occiput. ; Denies radiating pain into limb Integumentary Integumentary: Reports erythema and other Details: She tells me that her toenails hurt. ; Denies rash or unusual bruising Neurologic Neurologic: Denies confusion, disequilibrium, dizziness, focal weakness, headache(s), paresthesias, seizures or tremor(s) Psychiatric Psychiatric: Reports anxiety, depression, memory loss and visual hallucinations; Denies homicidal ideation or suicidal ideation Endocrine Endocrinology: Denies change in body appearance, polydipsia or polyuria Hematologic/Lymphatic Hematologic/Lymphatic: Denies easy bleeding, easy bruising or lymphadenopathy Allergic/Immunologic Allergic/Immunologic: Denies rhinitis, eczemia or asthma Physical Exam Const alert, no apparent distress and well nourished Constitutional Narrative: Seems somewhat anxious. General Appearance: cooperative, well kempt, well developed and anxious HEENT normocephalic, head/scalp atraumatic and external ears normal HEENT Narrative: Hearing is a little impaired. Having to repeat myself sometimes and I speak loudly. Dry mucous membranes. She has dentures. Eyes Eyes Narrative: She has had bilateral cataract extractions and the pupils are irregularly shaped. They are reactive to light bilaterally. Normal gaze. No nystagmus. General Eye: normal light reflex Neck supple, no JVD, No nodes and no carotid bruits Neck Narrative: She has pain with palpation at the base of the skull where the trapezius muscles insert. Sternocleidomastoid in the L is in spasm. General: trachea midline; Negative for anterior neck swelling Chest Chest: symmetrical chest wall rise Resp normal respiratory effort, normal air movement and clear to auscultation bilaterally Effort and Inspection: able to speak in complete sentences Cardio regular rate, regular rhythm, S1 normal heart sound, S2 normal heart sound, no murmurs, no rub and no gallops Cardio Narrative: No ectopy GI GI Narrative: She has pain when I palpate the epigastric area but, no guarding with palpation. No bruits. No masses and no H/S megaly. Normal BS, not hyperactive. Not tympanic. ND. Back/Spine straight leg raise negative bilaterally Back/Spine Narrative: She has some tightness in the Hamstrings but, not until 75 degrees. Had shooting pain with SLR and no pain with SLR and dorsiflexion of the foot. She has tenderness in the lower thoracic and lumbar areas with palpation of the paravertebral muscles. There is no erythema and no swelling. Sensation is intact in all extremities. Extremity Extremity Narrative: She has edema of both LE's and it is pitting to the knee........she tells me that this is new. She has some pain in both calves with compression. Denies any hx of VTE. Denies SOB and CP. DP are 2/3 BL. She has a scab on the distal anteromedial calf with redness and increased warmth to touch when compared to the Left leg. She can not recall why she has a scab. She denies falls. There is no purulent DC. She has swollen MCP joints in the hands and some are tender to palpation. She tells me that they sometimes are red and swollen. The toenails are long and the L great toenail partially broke off and was in her sock. she does not like to have her toenails cut because she says it hurts. Skin no jaundice and no mottling Skin Narrative: she has a scab on the distal RLE proximal to the ankle. There is no DC but, there is some erythema and increased warmth to touch when compared to the left LE. General Skin Exam: jaundice Neuro CN's II-XII intact bilaterally, moves all extremities, no focal motor deficits and no sensory deficits noted Neuro Narrative: Negative SLR BL. Sensation in all extremities is intact to pinprick and symmetrical. There is no extinction. She can hold both legs off the bed for a count of 5 with slight drift....then do not hit the bed. No ataxia. Resting tremors of the RUE. Bradykinesia, some rigidity. No masked facies. Speech: speech normal Psych cooperative, speech normal, denies homicidal ideation and denies suicidal ideation Psych Narrative: She admits to visual hallucinations prior to hospitalization. Appearance: grossly normal and appropriate Activity / Motor Behavior: appropriate eye contact Mood & Affect: anxious Results Lab / Micro Data Result Diagrams: 03/25/23 05:39 Assessment & Plan Assessment/Plan (1) Debility: (2) Cellulitis: PLAN: R leg (3) Anxiety: (4) Irritable bowel syndrome with both constipation and diarrhea: (5) Fibromyalgia: (6) Parkinsons disease: (7) Hallucinations: (8) HTN (hypertension): QUALIFIERS: Hypertension type: essential hypertension Qualified Code(s): I10 - Essential (primary) hypertension (9) HLD (hyperlipidemia): QUALIFIERS: Hyperlipidemia type: unspecified Qualified Code(s): E78.5 - Hyperlipidemia, unspecified (10) Chronic renal failure, stage 3a: (11) Scoliosis of thoracolumbar spine: (12) Renal calculus, right: (13) Cognitive impairment: PLAN: Plan PLAN PT for gait stability OT for ADL's ST for evaluation - for Parkinson's/swallowing and for cognitive impairment. Analgesics as needed Bowel protocol Fall precautions Assess for Anxiety/Depression GI prophylaxis with pantoprazole DVT prophylaxis with heparin 5000 units subcu every 12 hours Follow up with PCP and neurology following DC from [facility] Rehab AM lab including CMP, CBC, Mag and Phos Start Sinemet 10/100 TID - she has an appt with a neurologist scheduled but it is months from now. Decrease the Gabapentin to 100 mg BID......GFR is 53 which is consistent with stage IIIa chronic renal failure however the estimated creatinine clearance is only 37.6. Many of the sx she has....nausea, abd pain, change in behavior, peripheral edema are potential SE's of Gabapentin. she has negative SLR, intact sensation and fair strength in the LE's. Katheryn does not know what medications she is on. Her GD manages her medications. How long has she been on Gabapentin? Who prescribed it? How log has she been on Sertraline? I reviewed the [facility] report and it looks as though she has been on Gabapentin since 01/02/2023. On that date she had 6300 mg capsules prescribed by [facility] and on 03/08/2023 she had 90 100 mg caps filled by [facility]. Obtain records from Salena De La Cruz and [facility]uero[facility] I called her granddaughter to find out what she was taking at home and I got a VM that was full and could not leave a message. 5 days of Keflex to finish a 7 day course of antibiotics for cellulitis. Charges/Coding Visit Charges Inpatient E&M: 59182 Init Hosp L2
[2023-03-24] MEDS: Gabapentin 100 MG Capsule 300 MG PO ×2 (14:51→20:59)
[2023-03-24] MEDS: Cephalexin 500 MG Capsule PO ×2 (14:52→21:00)
[2023-03-24] MEDS: Carbidopa/Levodopa 10/100 Tablet PO (16:33)
[2023-03-24] MEDS: Ensure Plus High Protein 120 ML LIQUID PO (16:34)
[2023-03-24 17:51] VITALS: BMI 26.1
[2023-03-24 20:00] VITALS: BP 152/92; PULSE 88; RESP 18; TEMP 37.1; O2SAT 99
[2023-03-24] MEDS: Heparin Injection (Vial) 5,000 UNIT/ML VIAL 5000 UNIT SC (21:00)
[2023-03-24] MEDS: Acetaminophen 500 MG Tablet PO (21:00)
[2023-03-24] MEDS: Lisinopril 20 MG Tablet PO (21:00)
[2023-03-24] MEDS: Ondansetron ODT 4 MG Tablet PO (21:02)
[2023-03-24] MEDS: Loperamide 2 MG Capsule 4 MG PO (21:02)
[2023-03-25 05:53] LABS: Hematocrit 38.2 % (37-47); Hemoglobin 12.1 g/dL (12.0-15.0); Mean Corp Hgb Conc 31.7 g/dL (32-36); Mean Corpuscular Hgb 28.8 pg (27.0-32.0); Mean Platelet Vol. 9.5 fl (6.2-12.0); Platelet Count 175 K/mm3 (150-450); RBC Distribution Width CV 13.3 % (11.6-14.6); RBC Distribution Width SD 45.1 fl (35.1-43.9)
[2023-03-25] MEDS: Acetaminophen 500 MG Tablet PO ×2 (05:54→15:07)
[2023-03-25] MEDS: Gabapentin 100 MG Capsule 300 MG PO (05:55)
[2023-03-25] MEDS: Carbidopa/Levodopa 10/100 Tablet PO ×3 (05:55→17:14)
[2023-03-25] MEDS: 0.9% Saline Lock 10 ML Syringe IV ×2 (05:55→17:15)
[2023-03-25] MEDS: Cephalexin 500 MG Capsule PO ×3 (05:55→20:12)
[2023-03-25 06:01] LABS: Erythrocyte Sedimentation Rate 13 mm/hr (0-30)
[2023-03-25 06:17] LABS: CRP 9.86 mg/L (0.0-3.0)
[2023-03-25 07:37] VITALS: BP 129/75; PULSE 68; RESP 18; TEMP 37.2; O2SAT 95
[2023-03-25] MEDS: Heparin Injection (Vial) 5,000 UNIT/ML VIAL 5000 UNIT SC ×2 (08:00→19:59)
[2023-03-25] MEDS: Sertraline 50 MG Tablet PO (08:00)
[2023-03-25] MEDS: Pantoprazole Sodium 40 MG Tablet PO (08:00)
[2023-03-25] MEDS: Ensure Plus High Protein 120 ML LIQUID PO ×3 (08:03→17:14)
--- NOTE | 2023-03-25 11:16 | PN_ITS ---
Subjective Subjective Afebrile VSS-blood pressure is labile and has ranged from 129/75 to 152/92 since admission. Heart rate is within normal limits. Maintaining appropriate oxygen saturation on RA Oral intake is good. She had 75 to 100% of her breakfast this morning. Postvoid residuals x3 are all less than 100. She had 2 soft nonformed stools on 03/24/2023. She requested Imodium and she received 1 dose of 4 mg. She had a soft BM today. Discussed with nursing -she was somewhat confused last night. Reviewed the PT/OT/ST notes Medication list reviewed. Denies N/V/abd pain currently. Also denies lightheadedness, cephalgia, chest pain, shortness of breath, dysuria, calf pain and the swelling in the feet she thinks is somewhat better. Objective Data Objective Data Vital Signs: Vital Signs Temp Pulse Resp BP Pulse Ox O2 Del Method 98.9 F 68 18 129/75 H 95 Room Air 03/25/23 07:37 03/25/23 07:37 03/25/23 07:37 03/25/23 07:37 03/25/23 07:37 03/25/23 10:50 Oxygen Delivery Method Room Air Weight: 147 lb 4.301 oz Body Mass Index (BMI) 26.1 Intake & Output: Intake and Output for Last 24 Hours 03/23/23 03/24/23 03/25/23 23:59 23:59 23:59 Intake Total 720 / 720 560 / 560 Output Total 550 / 550 700 / 700 Balance 170 / 170 -140 / -140 Lab / Micro Data Result Diagrams: 03/25/23 05:39 Labs: Laboratory Results - last 24 hr 03/25/23 05:39: WBC 7.0, RBC 4.20, Hgb 12.1, Hct 38.2, MCV 91.0, MCH 28.8, MCHC 31.7 L, RDW Std Deviation 45.1 H, RDW Coeff of Brady 13.3, Plt Count 175, MPV 9.5, ESR 13 03/25/23 05:39: C-React Prot Ext Range 9.86 H Micro: Microbiology 03/24/23 14:29 Stool Stool Occult Blood (JONNY) - Final Physical Exam Const alert and no apparent distress Constitutional Narrative: Seems somewhat anxious. General Appearance: cooperative HEENT normocephalic, head/scalp atraumatic and external ears normal Eyes Eyes Narrative: She has had bilateral cataract extractions and the pupils are irregularly shaped. They are reactive to light bilaterally. Normal gaze. No nystagmus. General Eye: normal light reflex Neck supple, no JVD, No nodes and no carotid bruits Neck Narrative: She has pain with palpation at the base of the skull where the trapezius muscles insert. Sternocleidomastoid in the L is in spasm. General: trachea midline; Negative for anterior neck swelling Chest Chest: symmetrical chest wall rise Resp normal respiratory effort, normal air movement and clear to auscultation bilaterally Effort and Inspection: able to speak in complete sentences Cardio regular rate, regular rhythm, no murmurs and no gallops Cardio Narrative: No ectopy GI normal to inspection, nondistended, normoactive bowel sounds and soft to palpation GI Narrative: no guarding with palpation. Extremity no calf tenderness Extremity Narrative: . Skin Skin Narrative: she has a scab on the distal RLE proximal to the ankle. There is no DC but, t here is some erythema and increased warmth to touch when compared to the left LE. Neuro CN's II-XII intact bilaterally, moves all extremities, no focal motor deficits and no sensory deficits noted Neuro Narrative: Negative SLR BL. Sensation in all extremities is intact to pinprick and symmetrical. There is no extinction. She can hold both legs off the bed for a count of 5 with slight drift....then do not hit the bed. No ataxia. Resting tremors of the RUE. Bradykinesia, some rigidity. No masked facies. Speech: speech normal Psych cooperative, speech normal, denies homicidal ideation and denies suicidal ideation Psych Narrative: She admits to visual hallucinations prior to hospitalization. Appearance: grossly normal and appropriate Activity / Motor Behavior: appropriate eye contact Mood & Affect: anxious Assessment & Plan Assessment/Plan (1) Debility: (2) Cellulitis: PLAN: R leg - improving (3) Anxiety: (4) Irritable bowel syndrome with both constipation and diarrhea: (5) Fibromyalgia: (6) Parkinsons disease: (7) Hallucinations: (8) HTN (hypertension): QUALIFIERS: Hypertension type: essential hypertension Qualified Code(s): I10 - Essential (primary) hypertension (9) HLD (hyperlipidemia): QUALIFIERS: Hyperlipidemia type: unspecified Qualified Code(s): E78.5 - Hyperlipidemia, unspecified (10) Chronic renal failure, stage 3a: (11) Scoliosis of thoracolumbar spine: (12) Renal calculus, right: (13) Cognitive impairment: PLAN: Plan 1. Continue therapy 2. B12 is low at 184 -will supplement ....this can cause cognitive dysfunction and also ataxia. 3. ESR is 13 and the CRP is down to 9.86. Finish the Keflex to complete 7 days of antibiotics for cellulitis of the R leg Charges/Coding Visit Charges Inpatient E&M: 74662 Subs Hosp L2
[2023-03-25 11:28] VITALS: O2SAT 94
--- NOTE | 2023-03-25 14:16 | REHABEVAL_ITS ---
Admission Information Primary Diagnosis:: debility due to recent cellulitis of the RLE with generalized weakness. Status Changes from Prescreening?: No changes Identified Actual Problem List:: Skin Intergrity, Pain, ALteration in Cmfrt, Cognitve Impr/Memory Loss, Depression, Mobility Impaired, Self Care Deficit, Fluid Change-Dehydration and Alteration-Leisure Activ. Potential Problem List:: DVT, Bleeding, Infection, UTI, Aspiration, Falls, Skin Integrity and Depression Risk of Complications DVT: CALEB Hose and - (Heparin 5000 units subcu every 12 hours) Bleeding: Monitor Lab Values, Nursing to Teach Precautions for anti-coagulation therapy., Wound, if applicable, to be assessed every shift. and Stroke patients assessed for lethargy or change in status. Infection: Clinical Staff to Monitor for S/S of infection: and S/S of infection include fever, redness, warmth, etc. Urinary Tract Infection: Monitor for frequency, burning, discomfort, or incont inence. and Nursing will obtain urine sample for urinalysis and C&S when ordered. Aspiration: Clinical staff will monitor for coughing, drooling, congestion., Speech will evaluate swallowing and dsyphasia. and Nursing will monitor patient swallowing during meals. Falls: Patient will be evaluated for Fall Precautions and Patient will be placed on Fall Precautions as indicated per protocol. Skin Breakdown: Nursing will assess skin daily using assessment tool. and Nursing will place on Skin Breakdown Precautions as indicated. Pain: Clinical staff will assess patient's pain level per protocol., Medications will be given, if needed, and the pain level reassessed. and Other methods: Massage, distraction, decrease stimulus, etc. used PRN. Plan of Care Patient requires physician specializing in physical medicine and rehab oversight to provide close medical supervision of rehab issues including: Pain Management, Sleep Problems, Bowel and Bladder, Medical and co-morbidity Management, DVT prophylaxis, Rehabilitation Leadership and Coordination of treatment team Patient needs Physical Therapy: For a minimum of 1 hour and At least 5 out of 7 days Patient needs Physical Therapy to improve:: Mobility, Strengthening, Transfers, Stretching, ROM, Endurance, Stairs, Gait and Balance Patient needs Occupational Therapy: For a minimum of 1 hour and At least 5 out of 7 days Patient needs Occupational Therapy to improve ADL's incl.: Eating, Grooming, Bathing, Dressing, Toileting, Toilet transfers, Community Reintegration, Higher functioning activities, Household tasks, Adaptive Equipment, Splinting and Other activities as determined Patient requires speech therapy: For a minimum of 1 hour and At least 5 out of 7 days Patient requires speech therapy for: Swallowing, Cognition, Language Skills and Compensatory Strategies Patient requires 24/ Rehabilitation Nursing for: Pain Issues, Identifying and preventing risk factors, Monitoring and reporting current medical conditions, Assisting with ambulation, transfer, and all ADL's, Teaching patients about disease process and medications, Family teaching, Providing safe environment, Bowel and Bladder Issues, Skin integrity and Medication Management Patient needs Supply Chain Systems Manager/ Case Management for: Discharge Planning, Arranging Home Equipment or Services and Family Interventions Patient needs Dietary and Nutrition Services for: Adequate Nutrition, Nutritional Supplements and Nutritional Education Goals Patient will remain: free from falls and or injury at time of discharge. Patient will perform bed mobility at: MOD I level of assist. Patient will complete transfers from bed to chair at: - (Supervision) Patient will ambulate: - (500 feet with least restrictive device at mod I on various surfaces) Patient will complete upper body dressing at: - (She) Patient will complete lower body dressing at: - (Supervision) Patient will complete toileting at: MOD I level of assist. Patient will perform bathing at: - (Supervision) Patient will complete grooming at: MOD I level of assist. Patient will complete home management skills at: - (Supervision) Patient will achieve: - (1 curb step at standby assist with least restrictive device to allow access to the community) Patient will have pain level of: of 3 or less Patient's skin will: remain intact Patient will receive: adequate nutrition. Discharge Planning Pt Prognosis for Sig. Practical Improv. w/in Reasonable Time: Good Estimated Length of stay (days): 14 Anticipated D/C Destination: Home with Home Health Was Preadmission Assessment Accurate?: Yes
--- NOTE | 2023-03-25 15:25 | CHAPLAIN ---
Type of Pastoral Visit _x__ Initial Visit ___ Follow-up Visit ___ On-call Visit ___ General Patient Visit ___ Spiritual Assessment ___ Family Conference ___ Bereavement ___ Rapid Response ___ Code Blue ___ Other (describe below) Pastoral Care Referral From _x__ Patient ___ Family ___ Nurse ___ Physician ___ Probate Judge ___ Call Or Contact Centre Team Leader ___ Other (describe below) Sacrament/Intervention _x__ Active listening ___ Anointing ___ Yazidism ___ Bereavement ___ Communion ___ Lauren exploration ___ _x__ Life review _x__ Prayer ___ Reconciliation ___ Sacrament of Sick _x__ Supportive presence ___ Wedding ___ Other (describe below) Pastoral Comments patient was previously seen in [facility]; pt looks better than before and presents with a positive outlook; pt is talkative and tries hard to keep the conversation in positive manner as verbally stated; pt likes the visits and welcomes the prayers
[2023-03-25 17:00] LABS: Syphilis Antibodies Non-reactive; Vitamin B12 184 pg/mL (211-911)
[2023-03-25] MEDS: Gabapentin 100 MG Capsule PO (17:14)
[2023-03-25] MEDS: Loperamide 2 MG Capsule PO (17:14)
[2023-03-25 19:35] VITALS: BP 115/75; PULSE 90; RESP 16; TEMP 36.6; O2SAT 95
[2023-03-25 20:01] VITALS: PULSE 90; RESP 17; O2SAT 95
[2023-03-25] MEDS: Lisinopril 20 MG Tablet PO (20:12)
[2023-03-26] MEDS: Cephalexin 500 MG Capsule PO ×3 (06:27→21:09)
[2023-03-26] MEDS: Carbidopa/Levodopa 10/100 Tablet PO ×3 (06:27→15:53)
[2023-03-26 07:40] VITALS: BP 124/71; PULSE 70; RESP 15; TEMP 36.9; O2SAT 95
[2023-03-26] MEDS: Sertraline 50 MG Tablet PO (07:58)
[2023-03-26] MEDS: Heparin Injection (Vial) 5,000 UNIT/ML VIAL 5000 UNIT SC ×2 (07:58→21:09)
[2023-03-26] MEDS: Gabapentin 100 MG Capsule PO ×2 (07:58→16:44)
[2023-03-26] MEDS: Pantoprazole Sodium 40 MG Tablet PO (07:58)
[2023-03-26] MEDS: Acetaminophen 500 MG Tablet PO (08:00)
[2023-03-26] MEDS: Loperamide 2 MG Capsule PO (08:01)
--- NOTE | 2023-03-26 09:21 | PCM.CONS.GEN ---
Assessment & Plan Assessment/Plan (1) Venous insufficiency (chronic) (peripheral): PLAN: Exam performed recommend compression, exercise and elevation for edema mangement - no open wounds or erythema nail debridement in length/thickness using sterile nail nippers performed without incident to x10 nails follow up outpain in 9 weeks for nail care (2) Tinea unguium: (3) Pain in right toe(s): (4) Pain in left toe(s): HPI Consult Data Date of Consult: 03/26/23 HPI Narrative Reason for Consultation: nail care HPI Narrative: MEL MERINO, is a 73 F seen in rehab facility with edema to bilateral legs and paingful elongated nails PFSH Medical History Fibromyalgia GERD (gastroesophageal reflux disease) Irritable bowel syndrome with both constipation and diarrhea Lumbar radiculopathy Parkinsons disease Renal calculus, right Scoliosis of thoracolumbar spine Situational depression Thoracic radiculopathy due to degenerative joint disease of spine Home Medications lisinopril 20 mg tablet 20 mg PO QHS blood pressure 04/09/17 [History Last Taken 05/14/22] gabapentin 100 mg capsule 300 mg PO TID 10/15/20 [History Last Taken 05/14/22] acetaminophen 500 mg tablet 500 mg PO Q8H PRN PRN Pain 1-10 Or Fever 01/10/21 [History Last Taken Unknown] ondansetron 4 mg disintegrating tablet 4 mg PO Q8H PRN PRN Nausea #10 tabs 11/15/22 [Rx Last Taken Unknown] pantoprazole 40 mg tablet,delayed release 40 mg PO DAILY GERD 03/22/23 [History Last Taken Unknown] polyethylene glycol 3350 17 gram oral powder packet (Miralax) 17 g PO DAILY Stool softner 03/22/23 [History Last Taken Unknown] sertraline 50 mg tablet 50 mg PO DAILY Depression 03/22/23 [History Last Taken Unknown] simethicone 80 mg chewable tablet 80 mg PO TID Gas 03/22/23 [History Last Taken Unknown] cephalexin 500 mg capsule 500 mg PO TID Antibiotic 03/24/23 [History Last Taken Unknown] Allergy/AdvReac Type Severity Reaction Status Date / Time nitrofurantoin Allergy Hives Verified 03/21/23 15:03 [From Macrobid] hydrocodone [From Vicodin] AdvReac Vomiting Verified 03/21/23 15:03 morphine AdvReac Vomiting Verified 03/21/23 15:03 pregabalin [From Lyrica] AdvReac Vomiting Verified 03/21/23 15:03 Family History Mother Dementia Father No cardiac disease Surgical History H/O ventral hernia repair History of cataract surgery History of cholecystectomy Hx laparoscopic cholecystectomy Social History household members: family and other details: Her granddaughter Hardy lives with her and also Hardy is daughter, [place] housing: house number of children: 3 pets and animals: No history of recent travel: No Smoking Status: Never smoker Electronic Cigarette Use: not used second hand exposure: No alcohol intake: never substance use type: does not use ROS Respiratory/Chest Respiratory/Chest: Denies restlessness, wheezing or witnessed apneas Gastrointestinal Gastrointestinal: Denies belching, constipation or cramping Genitourinary Genitourinary: Denies anuria, burning urination or change in libido Integumentary Integumentary: Denies systems reviewed and no addt'l complaints, except as documented, bleeding lesions or hirsutism Neurologic Neurologic: Denies abnormal hearing, convulsions or loss of vision Physical Exam Narrative neurovascular status intact, +1 pitting edema bilaterally. painful elongated, thickened, discolored toenails with subungual debris to digits 1,2,3,4,5. No open skin lesions. Lab / Micro Data Result Diagrams: 03/25/23 05:39 Labs: Laboratory Results - last 24 hr 03/25/23 15:42: Vitamin B12 184 L, Syphilis Total Ab Non-reactive
[2023-03-26] MEDS: Ondansetron ODT 4 MG Tablet PO (10:26)
--- NOTE | 2023-03-26 14:47 | PCM.PROGNOTE ---
Subjective Subjective Afebrile VSS Maintaining appropriate oxygen saturation on RA Oral intake is good Discussed with nursing - no problems that need addressed Reviewed the PT/OT/ST notes Medication list reviewed. Tells me that she slept well last night. Denies Back pain and tells me that she does not really have leg pain.....she has heaviness in her legs. She denies CP, N/V, abd pain, dysuria and calf tenderness. She tells me that she is having a BM every 2 hours during the day but, rarely gets up at night to have a BM. Podiatry debrided her nails and she will follow up as an OP in 9 weeks. Objective Data Objective Data Vital Signs: Vital Signs Temp Pulse Resp BP Pulse Ox O2 Del Method 98.4 F 70 15 124/71 H 95 Room Air 03/26/23 07:40 03/26/23 07:40 03/26/23 07:40 03/26/23 07:40 03/26/23 07:40 03/26/23 09:29 Oxygen Delivery Method Room Air Weight: 147 lb 4.301 oz Body Mass Index (BMI) 26.1 Intake & Output: Intake and Output for Last 24 Hours 03/24/23 03/25/23 03/26/23 23:59 23:59 23:59 Intake Total 720 / 720 1730 / 1730 360 / 360 Output Total 550 / 550 1850 / 1850 250 / 250 Balance 170 / 170 -120 / -120 110 / 110 Lab / Micro Data Result Diagrams: 03/25/23 05:39 Labs: Laboratory Results - last 24 hr 03/25/23 15:42: Vitamin B12 184 L, Syphilis Total Ab Non-reactive Micro: Microbiology 03/24/23 14:29 Stool Stool Occult Blood (JONNY) - Final Physical Exam Const alert and no apparent distress General Appearance: cooperative Resp normal respiratory effort, normal air movement and clear to auscultation bilaterally Cardio regular rate, regular rhythm and no gallops Cardio Narrative: No ectopy GI normal to inspection, nondistended, normoactive bowel sounds, soft to palpation and non-tender GI Narrative: No guarding with palpation. Extremity Extremity Narrative: Less edema today and JESSE wraps are in place. Skin Wound Narrative: erythema and increased warmth to touch of the distal RLE continues to improve. Neuro Neuro Narrative: When I first entered the room there was no tremor of the RUE then she got talking and anxious? and it seemed to increase. Assessment & Plan Assessment/Plan (1) Debility: (2) Cellulitis: (3) Anxiety: (4) Irritable bowel syndrome with both constipation and diarrhea: (5) Fibromyalgia: (6) Parkinsons disease: (7) Hallucinations: (8) HTN (hypertension): QUALIFIERS: Hypertension type: essential hypertension Qualified Code(s): I10 - Essential (primary) hypertension (9) HLD (hyperlipidemia): QUALIFIERS: Hyperlipidemia type: unspecified Qualified Code(s): E78.5 - Hyperlipidemia, unspecified (10) Chronic renal failure, stage 3a: (11) Scoliosis of thoracolumbar spine: (12) Renal calculus, right: (13) Cognitive impairment: PLAN: Plan 1. Continue therapy 2. Since she has memory loss and also unsteady gait will start B12 1000 mg IM daily for 7 days and then continue with monthly B12. 3. Accurate stool chart and include times she has a bowel movement in the chart. 4. Increase the dose on the Sinemet on Wednesday if the tremor is still bad. she has mild rigidity and anthony kinesia. I observed her walk today and she has a festinating gait. She also has somewhat of a masked faces with decreased eye blink. 5. Try arthritis cream to the low back TID to see if that provides some relief of the pain. She has severe degenerative changes in the LS spine but no significant stenosis on the CT of the LS spine recently. No radicular pain. Negative SLR, intact sensation. Maybe local tx will help. Stool for occult blood is negative. If the local tx does not help consider adding Celebrex 100 mg 1-2 times a day but, will need to closely monitor the renal function. 6. DC sertraline which was just added in the past few months and start Duloxetine for addtive effect of chronic pain relief. I reviewed records we received from Aretha Ann NP. Katheryn has been on Gabapentin several times and it has not helped with the back pain. She also has L SI pain. In mid December she was on a Prednisolone taper and that also did not help with the pain. She had a left inguinal hernia repair in December and went [place] from [place]. It was then that the swelling in the legs started. She had a venous US that was negative for clot. Valvular competence at that time appeared intact within the proximal deep venous system bilaterally. She has not had an ECHO at this institution and she denies a hx of CHF or SARA. Lungs are CTA with good air exchange. Charges/Coding Visit Charges Inpatient E&M: 83142 Subs Hosp L2
[2023-03-26 15:22] VITALS: O2SAT 95
[2023-03-26] MEDS: Cyanocobalamin (B12) 1,000 MCG/ML Vial 1000 MCG IM (15:53)
[2023-03-26 20:39] VITALS: BP 109/64; PULSE 90; RESP 16; TEMP 36.8; O2SAT 97
[2023-03-26] MEDS: Arthritis Pain Compound 60 CLICK TUBE TOPICAL (21:08)
[2023-03-26] MEDS: Lisinopril 20 MG Tablet PO (21:10)
[2023-03-27] MEDS: Acetaminophen 500 MG Tablet PO ×3 (01:49→20:25)
[2023-03-27] MEDS: Cephalexin 500 MG Capsule PO ×3 (06:36→20:28)
[2023-03-27] MEDS: Carbidopa/Levodopa 10/100 Tablet PO ×3 (06:36→16:55)
[2023-03-27 07:54] VITALS: BP 106/54; PULSE 70; RESP 16; TEMP 37.2; O2SAT 95
[2023-03-27] MEDS: Gabapentin 100 MG Capsule PO ×2 (07:58→16:55)
[2023-03-27] MEDS: Arthritis Pain Compound 60 CLICK TUBE TOPICAL ×2 (07:58→20:22)
[2023-03-27] MEDS: Heparin Injection (Vial) 5,000 UNIT/ML VIAL 5000 UNIT SC ×2 (07:58→20:05)
[2023-03-27] MEDS: Cyanocobalamin (B12) 1,000 MCG/ML Vial 1000 MCG IM (07:58)
[2023-03-27] MEDS: Pantoprazole Sodium 40 MG Tablet PO (07:59)
[2023-03-27] MEDS: Ensure Plus High Protein 120 ML LIQUID PO ×3 (07:59→16:55)
[2023-03-27] MEDS: DULoxetine Hcl 20 MG Capsule PO (07:59)
[2023-03-27] MEDS: 0.9% Saline Lock 10 ML Syringe IV ×2 (11:10→20:20)
[2023-03-27 19:45] VITALS: BP 97/55; PULSE 97; RESP 16; TEMP 36.9; O2SAT 97
[2023-03-27] MEDS: Lisinopril 20 MG Tablet PO (20:27)
[2023-03-27 22:00] VITALS: PULSE 93; RESP 16; O2SAT 97
[2023-03-28] MEDS: Carbidopa/Levodopa 10/100 Tablet PO ×3 (06:07→16:51)
[2023-03-28] MEDS: Cephalexin 500 MG Capsule PO ×3 (06:07→20:19)
[2023-03-28 07:48] VITALS: BP 113/58; PULSE 78; RESP 16; TEMP 37; O2SAT 98
[2023-03-28] MEDS: Cyanocobalamin (B12) 1,000 MCG/ML Vial 1000 MCG IM (08:51)
[2023-03-28] MEDS: Heparin Injection (Vial) 5,000 UNIT/ML VIAL 5000 UNIT SC ×2 (08:53→20:19)
[2023-03-28] MEDS: Pantoprazole Sodium 40 MG Tablet PO (08:55)
[2023-03-28] MEDS: DULoxetine Hcl 20 MG Capsule PO (08:55)
[2023-03-28] MEDS: Gabapentin 100 MG Capsule PO ×2 (08:55→16:51)
[2023-03-28] MEDS: Loperamide 2 MG Capsule PO (08:56)
[2023-03-28] MEDS: Arthritis Pain Compound 60 CLICK TUBE TOPICAL ×2 (09:00→20:21)
[2023-03-28] MEDS: Ensure Plus High Protein 120 ML LIQUID PO (11:06)
[2023-03-28] MEDS: Acetaminophen 500 MG Tablet PO ×2 (13:17→22:23)
[2023-03-28 19:51] VITALS: BP 112/64; PULSE 90; RESP 18; TEMP 37.2; O2SAT 95
[2023-03-28] MEDS: Lisinopril 20 MG Tablet PO (20:20)
[2023-03-29] MEDS: Carbidopa/Levodopa 10/100 Tablet PO ×2 (06:36→11:08)
[2023-03-29] MEDS: Cephalexin 500 MG Capsule PO (06:36)
[2023-03-29] MEDS: Acetaminophen 500 MG Tablet PO (06:39)
[2023-03-29 07:15] VITALS: BP 128/69; PULSE 68; RESP 18; TEMP 36.1; O2SAT 95
[2023-03-29] MEDS: Gabapentin 100 MG Capsule PO ×2 (08:41→16:39)
[2023-03-29] MEDS: Arthritis Pain Compound 60 CLICK TUBE TOPICAL ×2 (09:05→20:06)
[2023-03-29] MEDS: Pantoprazole Sodium 40 MG Tablet PO (09:05)
[2023-03-29] MEDS: Heparin Injection (Vial) 5,000 UNIT/ML VIAL 5000 UNIT SC ×2 (09:05→20:04)
[2023-03-29] MEDS: Cyanocobalamin (B12) 1,000 MCG/ML Vial 1000 MCG IM (09:06)
[2023-03-29] MEDS: DULoxetine Hcl 20 MG Capsule PO (09:06)
[2023-03-29] MEDS: Ensure Plus High Protein 120 ML LIQUID PO ×2 (11:09→16:34)
[2023-03-29] MEDS: 0.9% Saline Lock 10 ML Syringe IV (11:11)
--- NOTE | 2023-03-29 12:07 | PN_ITS ---
Subjective Subjective Afebrile VSS-blood pressures well controlled. Heart rate is within normal limits. Maintaining appropriate oxygen saturation on RA Oral intake is good for foods and fluids. Fluid balance yesterday was -2130. Has been in negative fluid balance for the past 3 days? She is not on a diuretic. Discussed with nursing - no problems that need addressed Reviewed the PT/OT/ST notes Medication list reviewed. No change in the leg heaviness with decrease in the Gabapentin dose to 100 mg BID. I do not think this the heaviness is due to radicular pain. Tremors have not changed since the Sinemet was started and today the LUE is tremoring as well. D/W PT and they feel her gait was more festooning today than at admission. Katheryn denies lightheadedness, vertigo, CP, SOB at rest, SOB with exertion, cough, nausea, vomiting, abd pain, diarrhea, constipation, dysuria, calf pain and ankle swelling. 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 Denies pain. Objective Data Objective Data Vital Signs: Vital Signs Temp Pulse Resp BP Pulse Ox O2 Del Method 97.0 F L 68 18 128/69 H 95 Room Air 03/29/23 07:15 03/29/23 07:15 03/29/23 07:15 03/29/23 07:15 03/29/23 07:15 03/29/23 07:15 Oxygen Delivery Method Room Air Weight: 147 lb 4.301 oz Body Mass Index (BMI) 26.1 Intake & Output: Intake and Output for Last 24 Hours 03/27/23 03/28/23 03/29/23 23:59 23:59 23:59 Intake Total 1720 / 1720 1480 / 1480 120 / 120 Output Total 1999 1575 / 1975 2250 / 2250 Balance -280 / -280 -95 / -495 -2130 / -2130 Lab / Micro Data Result Diagrams: 03/25/23 05:39 03/29/23 12:35 Micro: Microbiology 03/24/23 14:29 Stool Stool Occult Blood (JONNY) - Final Physical Exam Const alert and no apparent distress Constitutional Narrative: Pleasant and talkative. General Appearance: cooperative Resp normal respiratory effort, normal air movement and clear to auscultation bilaterally Effort and Inspection: Negative for tachypneic or labored Cardio regular rate, regular rhythm and no gallops GI normal to inspection, nondistended, normoactive bowel sounds, soft to palpation and non-tender Extremity no calf tenderness Extremity Narrative: edema is better, but, not resolved, with the JESSE wraps in place. Skin General Skin Exam: no breakdown Rashes: no rashes Wound Narrative: no erythema or openings in the skin over the distal RLE. Has finished antibiotics for cellulitis. Psych thought process normal, cooperative and affect normal Assessment & Plan Assessment/Plan (1) Debility: (2) Cellulitis: (3) Anxiety: (4) Irritable bowel syndrome with both constipation and diarrhea: (5) Fibromyalgia: (6) Parkinsons disease: (7) Hallucinations: (8) HTN (hypertension): QUALIFIERS: Hypertension type: essential hypertension Qualified Code(s): I10 - Essential (primary) hypertension (9) HLD (hyperlipidemia): QUALIFIERS: Hyperlipidemia type: unspecified Qualified Code(s): E78.5 - Hyperlipidemia, unspecified (10) Chronic renal failure, stage 3a: (11) Scoliosis of thoracolumbar spine: (12) Renal calculus, right: (13) Cognitive impairment: PLAN: Possibly due to B12 deficiency. On an IM supplement for 1 week and then weekly X 4 then monthly. PLAN: Plan 1. Continue therapy 2. Check a BMP today. 3. Check a weight today. 4. Continue IM B12 supplementation 5. Change Sinemet to 25/100 3 times daily AC. Charges/Coding Visit Charges Inpatient E&M: 17938 Subs Hosp L2
--- NOTE | 2023-03-29 13:00 | CASEMGMT ---
Social Work IDT met with patient for Team meeting. Left voicemail with dtr for participation. Discussed patient's progress in PT/OT/ST/SN. Educated to Medicare approval for 13 days with [facility]C 04/05. Pt's goal is to return home with family. Will ReTeam next week. SW to continue to follow for DC planning. Zoe Payton, SENIOR LINUX ENGINEER [employer]PORATE LEARNING CONSULTANT
[2023-03-29 13:26] LABS: Anion Gap 7 (5-15); BUN 29 mg/dL (7-18); BUN/Creat Ratio 28.4 RATIO (10-20); Calcium,Total 8.9 mg/dL (8.5-10.1); Chloride 108 mmol/L (98-107); Creatinine, Serum 1.02 mg/dL (0.55-1.02); EST Glomerular Filtration Rate 56 mL/min (>60); Est Glom Filt Rate - Afr Amer 68 mL/min (>60); Estimated Creatinine Clearance 39.42 ml/min; Glucose 113 mg/dL (74-106); Potassium 4.2 mmol/L (3.5-5.1); Sodium Level 140 mmol/L (136-145)
[2023-03-29 15:07] VITALS: BMI 25.7
[2023-03-29] MEDS: Carbidopa/Levodopa 25/100 Tablet PO (16:35)
[2023-03-29] MEDS: Lisinopril 20 MG Tablet PO (20:06)
[2023-03-29 20:15] VITALS: BP 126/73; PULSE 85; RESP 16; TEMP 36.9; O2SAT 98
[2023-03-30] MEDS: Acetaminophen 500 MG Tablet PO (00:18)
[2023-03-30] MEDS: Carbidopa/Levodopa 25/100 Tablet PO ×3 (05:27→17:13)
[2023-03-30 07:29] VITALS: BP 142/83; PULSE 75; RESP 16; TEMP 37; O2SAT 93
[2023-03-30] MEDS: DULoxetine Hcl 20 MG Capsule PO (08:04)
[2023-03-30] MEDS: Heparin Injection (Vial) 5,000 UNIT/ML VIAL 5000 UNIT SC ×2 (08:04→20:08)
[2023-03-30] MEDS: Ensure Plus High Protein 120 ML LIQUID PO (08:04)
[2023-03-30] MEDS: Cyanocobalamin (B12) 1,000 MCG/ML Vial 1000 MCG IM (08:04)
[2023-03-30] MEDS: Gabapentin 100 MG Capsule PO (08:05)
[2023-03-30] MEDS: Arthritis Pain Compound 60 CLICK TUBE TOPICAL ×2 (08:05→20:07)
[2023-03-30] MEDS: Pantoprazole Sodium 40 MG Tablet PO (08:05)
--- NOTE | 2023-03-30 10:11 | PCM.PROGNOTE ---
Subjective Subjective Afebrile VSS Maintaining appropriate oxygen saturation on RA Oral intake is good Discussed with nursing - no problems that need addressed Reviewed the PT/OT/ST notes Medication list reviewed. She is complaining of back pain which is chronic but also complaining of right shoulder pain. I palpated the right biceps tendon yesterday at the shoulder and she was very tender over the biceps tendon. She did not have x-rays of the right shoulder in the emergency room at admission. She is also having intermittent nausea with dry heaves, lightheadedness, back pain, insomnia, bad dreams. She is very anxious and the worse the anxiety the more somatic complaints she has. Objective Data Objective Data Vital Signs: Vital Signs Temp Pulse Resp BP Pulse Ox O2 Del Method 98.6 F 75 16 142/83 H 93 Room Air 03/30/23 07:29 03/30/23 07:29 03/30/23 07:29 03/30/23 07:29 03/30/23 07:29 03/30/23 07:29 Oxygen Delivery Method Room Air Weight: 145 lb 1.027 oz Body Mass Index (BMI) 25.7 Intake & Output: Intake and Output for Last 24 Hours 03/28/23 03/29/23 03/30/23 23:59 23:59 23:59 Intake Total 1480 / 1480 1020 / 1020 580 / 580 Output Total 1575 / 1975 2250 / 2975 1025 / 1025 Balance -95 / -495 -1230 / -1955 -445 / -445 Lab / Micro Data Result Diagrams: 03/25/23 05:39 03/29/23 12:35 Labs: Laboratory Results - last 24 hr 03/29/23 12:35: Sodium 140, Potassium 4.2, Chloride 108 H, Carbon Dioxide 25.0, Anion Gap 7, BUN 29 H, Creatinine 1.02, Estim Creat Clear Calc 39.42, Est GFR (MDRD) Af Amer 68, Est GFR (MDRD) Non-Af 56 L, BUN/Creatinine Ratio 28.4 H, Glucose 113 H, Calcium 8.9 Micro: Microbiology 03/24/23 14:29 Stool Stool Occult Blood (JONNY) - Final Physical Exam Const alert Constitutional Narrative: anxious. General Appearance: cooperative Resp clear to auscultation bilaterally Effort and Inspection: Negative for tachypneic Cardio regular rate, regular rhythm and no gallops Rate: Negative for tachycardic GI normal to inspection, nondistended, normoactive bowel sounds, soft to palpation and non-tender GI Narrative: no guarding with palpation.......BS's are normal and not hyperactive. Tells me that she never has diarrhea at night......only during the day. Extremity Extremity Narrative: R shoulder has no erythema, no swelling and no openings in the skin. There is no increased warmth to touch and no bruising. She is very tender with palpation of the biceps tendon at the shoulder and with contraction of the biceps. Assessment & Plan Assessment/Plan (1) Debility: (2) Cellulitis: (3) Biceps tendinitis of right shoulder: (4) Anxiety: PLAN: Plan 1. Continue therapy 2. X-ray of the right shoulder today-if no fracture consider injecting the biceps tendon. 3. Discontinue Neurontin - it makes no difference in c/o back pain. She complains of back pain mostly when she is anxious. Nursing reports she is afraid at bedtime and sleeps off and on. Will order Ativan 0.5 mg at HS tonight and see how she is in the AM. Charges/Coding Visit Charges Inpatient E&M: 76061 Subs Hosp L2
[2023-03-30] MEDS: traMADol 50 MG Tablet PO (10:58)
--- NOTE | 2023-03-30 13:15 | RAD_ITS ---
STUDY: X-RAY - RIGHT SHOULDER REASON FOR EXAM: Female, 73 years old. Pain after a fall TECHNIQUE: 1 view(s) of the shoulder. COMPARISON: None. FINDINGS: Normal glenohumeral articulation. Normal acromioclavicular joint. Normal acromion. Normal humeral head and visualized proximal humerus. There is periarticular soft tissue calcification consistent with a calcific tendinitis. Normal visualized pulmonary apex. RAD/Shoulder One View IMPRESSION: Calcific tendinitis. Electronically Signed: Cesar Lezama MD at 14:25 EDT ,
[2023-03-30] MEDS: Acetaminophen 325 MG Tablet 650 MG PO ×2 (14:04→20:08)
[2023-03-30 20:00] VITALS: BP 98/62; PULSE 84; PULSE 86; RESP 15; RESP 18; TEMP 37.2; O2SAT 18; O2SAT 97
[2023-03-30] MEDS: Lisinopril 20 MG Tablet PO (20:08)
[2023-03-30] MEDS: LORazepam 0.5 MG Tablet PO (20:08)
[2023-03-31] MEDS: traMADol 50 MG Tablet PO (05:38)
[2023-03-31] MEDS: Acetaminophen 325 MG Tablet 650 MG PO ×3 (05:38→20:04)
--- NOTE | 2023-03-31 06:37 | NURSING ---
Reviewed and agreed with [employer] documentation.
[2023-03-31 07:50] VITALS: BP 113/66; PULSE 64; RESP 16; TEMP 36.6; O2SAT 96
[2023-03-31] MEDS: Heparin Injection (Vial) 5,000 UNIT/ML VIAL 5000 UNIT SC ×2 (08:14→20:04)
[2023-03-31] MEDS: Ensure Plus High Protein 120 ML LIQUID PO ×2 (08:14→11:48)
[2023-03-31] MEDS: Carbidopa/Levodopa 25/100 Tablet PO ×3 (08:14→16:37)
[2023-03-31 08:38] VITALS: PULSE 65; RESP 16; O2SAT 94
[2023-03-31] MEDS: Pantoprazole Sodium 40 MG Tablet PO (10:03)
[2023-03-31] MEDS: DULoxetine Hcl 30 MG Capsule PO (10:03)
[2023-03-31] MEDS: Cyanocobalamin (B12) 1,000 MCG/ML Vial 1000 MCG IM (10:03)
[2023-03-31] MEDS: Arthritis Pain Compound 60 CLICK TUBE TOPICAL ×2 (10:04→20:02)
[2023-03-31] MEDS: Ondansetron ODT 4 MG Tablet PO ×2 (11:03→20:03)
[2023-03-31 13:07] VITALS: BP 120/71; PULSE 88; RESP 16; O2SAT 98
--- NOTE | 2023-03-31 13:08 | NURSING ---
Emesis x1 after therapy this AM, Pt states that she got too hot. Cold wash cloth on neck and PRN Zofran administered, effective. Pt c/o dizziness while eating lunch, bp 120/71 HR 88. Educated pt on side effects of Zofran and encouraged fluids.
[2023-03-31 15:00] VITALS: BMI 25.4
[2023-03-31] MEDS: LORazepam 0.5 MG Tablet PO (20:03)
[2023-03-31] MEDS: busPIRone 5 MG Tablet PO (20:03)
[2023-03-31] MEDS: Lisinopril 20 MG Tablet PO (20:03)
[2023-03-31 21:06] VITALS: BP 131/77; PULSE 84; RESP 16; TEMP 36.9; O2SAT 96
[2023-03-31 21:09] VITALS: PULSE 84; RESP 16; O2SAT 96
[2023-04-01] MEDS: traMADol 50 MG Tablet PO (03:36)
--- NOTE | 2023-04-01 03:48 | NURSING ---
drying room supervisor reports that pt was a awake and having dry heaves and was nauseated. pt has not felt well most of the hs reporting that her stomach and back were hurting. pt has had several medications changes. Dr berkowitz was made aware of pts discomfort and would address it today. today will the 3rd day that pt has not had a bowel movement and MOM was given as well as ultram for her back pain. pt has bowel sounds x's 4 and rn aware of pt condition.
--- NOTE | 2023-04-01 03:48 | NURSING ---
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 Patient is unable to get zofran at this time. Patient is in tears and anxious about vomiting. Patient stated she was a little warm, cool wash cloth provided. Patient stated she was waken up from her sleep feeling nauseated and the dry heaving is creating worsening back pain on the right side. Bowel sounds are hyperactive in the RLQ and RUQ and normoactive in the LUQ and LLQ. Patient provided with saltine crackers and a sprite.
[2023-04-01] MEDS: Magnesium Hydroxide 30 ML UDC PO (03:53)
[2023-04-01] MEDS: Ondansetron ODT 4 MG Tablet PO ×2 (04:17→17:23)
--- NOTE | 2023-04-01 09:18 | PN_ITS ---
Subjective Subjective Afebrile VSS Maintaining appropriate oxygen saturation on RA Oral intake was good but, last night she only took 25-49% of her diet and this morning she only wanted toast. Discussed with nursing - she had a bad night and did not sleep well. Many somatic complaints including back pain, lightheadedness, shoulder pain, constipation, nausea etc. Had dry heaves. She was started on Buspar yesterday. Reviewed the PT/OT/ST notes Medication list reviewed. She is taking Ativan 0.5 mg at HS to help with anxiety at bedtime. On Cymbalta for anxiety/depression/pain control. She was started on Buspar yesterday but, when she has a panic attack Xanax seems to work very well. Would like get the depression/anxiety under better control with the Cymbalta but, it was just started when she came to rehab and it will take a while for it to become therapeutic. Katheryn did not complain to me of back pain but she complained to PT the the back pain and R shoulder pain was a 6 today. No pain radiating to the legs. She had an emesis bag next to her but, has not vomited. She does not look to be in pain and is not fidgety/restless, grimacing or complaining of pain to me. she did not c/o SOB, CP, lightheadedness. she was able to eat toast this morning and after getting 0.25mg of Xanax she felt better and could eat. She is also working with PT and I saw her ambulating in the [facility] with a FWW. I spoke with Hardy, Katheryn's granddaughter who lives with Katheryn, and she tells me that Katheryn is very anxious. She is always worrying about her great granddaughters, trish the 2 YO, who also live with Katheryn. Katheryn even told me at admission that the 2 YO has problems sleeping. We discussed the pain, light headedness, nausea and diarrhea and I told Hardy I think this is Katheryn's form of a panic attack. She even has toenail pain when she is getting her toe nails clipped. I explained what we are doing to try and control this. She is in agreement and I will also try and give Katheryn's dtr a call. I gave Hardy my office and cell phone numbers to share with her mother. Objective Data Objective Data Vital Signs: Vital Signs Temp Pulse Resp BP Pulse Ox O2 Del Method 98.4 F 84 16 131/77 H 96 Room Air 03/31/23 21:06 03/31/23 21:09 03/31/23 21:09 03/31/23 21:06 03/31/23 21:09 03/31/23 21:09 Oxygen Delivery Method Room Air Weight: 143 lb 11.862 oz Body Mass Index (BMI) 25.4 Intake & Output: Intake and Output for Last 24 Hours 03/30/23 03/31/23 04/01/23 23:59 23:59 23:59 Intake Total 1480 / 1480 1370 / 1370 Output Total 1375 / 1375 1974 Balance 105 / 105 -605 / -605 Lab / Micro Data Result Diagrams: 03/25/23 05:39 03/29/23 12:35 Micro: Microbiology 03/24/23 14:29 Stool Stool Occult Blood (JONNY) - Final Physical Exam Const alert and oriented x3 Constitutional Narrative: anxious. I was able to get her to eat some Cheerios and she is doing therapy even though she tells me that she does not feel well.......she improves if you distract her. HEENT moist oral mucous membranes Resp clear to auscultation bilaterally Cardio regular rate and regular rhythm GI GI Narrative: Soft, normal BS's, no guarding with palpation, not distended. Extremity no calf tenderness General Extremity: Negative for edema Skin Wound Narrative: She has patchy reddened areas on the anterior chest that follow the dermatome along the lateral rib to the back. Does not cross the midline. She has had a shingles vaccine in the past. There are small vesicles present.. Neuro CN's II-XII intact bilaterally, no focal motor deficits and no sensory deficits noted Assessment & Plan Assessment/Plan (1) Shingles rash: (2) Biceps tendinitis of right shoulder: (3) Debility: PLAN: Plan 1. Continue therapy 2. R biceps tendon injected with 20 mg of triamcinolone +1 cc Marcaine after cleansing the area with alcohol wipes. 3. Start Zovirax 800 mg 5 X's a day for 7-10 days........her creat clearance is 39 and so there is no dosage adjustment needed for her at this time. 4. No women to be caretakers and no staff who are immunocompromised or having never had chickenpox or the vaccine. Charges/Coding Procedures [facility] [place] [id number]: 33785 Drain/inj joint/bursa w/o us (Injected the R biceps tendon. )
[2023-04-01] MEDS: Acetaminophen 325 MG Tablet 650 MG PO ×3 (09:43→20:51)
[2023-04-01] MEDS: ALPRAZolam 0.25 MG Tablet PO (09:43)
[2023-04-01] MEDS: Carbidopa/Levodopa 25/100 Tablet PO ×3 (09:43→15:56)
[2023-04-01] MEDS: DULoxetine Hcl 30 MG Capsule PO (09:43)
[2023-04-01] MEDS: Pantoprazole Sodium 40 MG Tablet PO (09:44)
[2023-04-01] MEDS: Ensure Plus High Protein 120 ML LIQUID PO ×3 (09:58→17:23)
[2023-04-01] MEDS: Heparin Injection (Vial) 5,000 UNIT/ML VIAL 5000 UNIT SC ×2 (09:58→20:51)
[2023-04-01 10:00] VITALS: BP 121/86; PULSE 71; RESP 16; TEMP 36.5; O2SAT 96
[2023-04-01] MEDS: Arthritis Pain Compound 60 CLICK TUBE TOPICAL ×2 (10:02→20:48)
[2023-04-01] MEDS: Cyanocobalamin (B12) 1,000 MCG/ML Vial 1000 MCG IM (10:03)
--- NOTE | 2023-04-01 14:23 | CASEMGMT ---
Social Work SW spoke with pt to review DC plans. Confirmed pt to DC home with family 6/19. Recommending HHC and FWW. recommending counseling resources for assistance with anxiety. LEXUS provided pt resources. However, pt requesting this worker contact dtr to review and get HHC preference. LEXUS referred to [facility] for FWW via [facility]. Family to transport at DC. LEXUS left voicemail with dtr. Plan: DC home with family 6/19, HHC PT/OT/SW, FWW Zoe Payton, MAI LANGW
[2023-04-01] MEDS: Bupivacaine 0.5% PF 10 ML VIAL INFILT (15:53)
[2023-04-01] MEDS: Triamcinolone Acetonide 40 MG/ML Vial INTRAARTIC (15:54)
[2023-04-01] MEDS: Lidocaine 4% 50 ML Bottle TOPICAL (15:54)
[2023-04-01] MEDS: Amitriptyline 25 MG Tablet PO (20:51)
[2023-04-01] MEDS: Lisinopril 20 MG Tablet PO (20:51)
[2023-04-01 22:00] VITALS: BP 94/49; PULSE 81; RESP 16; TEMP 36.4; O2SAT 95
--- NOTE | 2023-04-02 04:15 | NURSING ---
Reviewed and agree with Gustavo GEE documentation and assessment charting.
[2023-04-02] MEDS: Acetaminophen 325 MG Tablet 650 MG PO ×3 (06:18→20:27)
[2023-04-02] MEDS: Carbidopa/Levodopa 25/100 Tablet PO ×3 (06:18→17:10)
[2023-04-02 07:26] VITALS: BP 152/73; PULSE 71; RESP 16; TEMP 36.9; O2SAT 98
[2023-04-02] MEDS: Heparin Injection (Vial) 5,000 UNIT/ML VIAL 5000 UNIT SC ×2 (08:01→20:24)
[2023-04-02] MEDS: Cyanocobalamin (B12) 1,000 MCG/ML Vial 1000 MCG IM (08:01)
[2023-04-02] MEDS: DULoxetine Hcl 30 MG Capsule PO (08:02)
[2023-04-02] MEDS: Arthritis Pain Compound 60 CLICK TUBE TOPICAL ×2 (08:02→20:25)
[2023-04-02] MEDS: Ensure Plus High Protein 120 ML LIQUID PO ×3 (08:02→17:10)
[2023-04-02] MEDS: Pantoprazole Sodium 40 MG Tablet PO (08:03)
--- NOTE | 2023-04-02 13:14 | CASEMGMT ---
Addendum entered by Zoe Payton 04/02/23 16:52: SW sent another message to [facility]. Received call from dtr. Dtr stated she is not feeling ready for pt to DC home. She did not get the information she was looking for from nursing and requested to speak to the Dr. SW provided direct phone number to Dr. If pt cannot transfer to [facility], d/t bed availability. SW offered [facility] or another SNF. Dtr denied and only wants pt to go to [facility]. SW educated they may not have a bed and if they cannot accept, to have another facility preference. Dtr expressed understanding. SW received response from [facility], they will review clinically, but unsure if bed is open. SW offered DC 04/06, but cannot extend further. Will continue to follow. Original Note: Social Work Phoned dtr again to f/u on DC plans for 04/05. Dtr expressed uncertainty of pt discharging home stating pt was worse than when she admitted. SW offered to transfer to nursing or the Dr to explain the medical piece, however, if pt is not ready to DC home, offered SNF placement for skilled services. Educated to Medicare coverage. Dtr states she would like that option and pt has been to [facility] prior. SW offered to place referral and transfer to nursing. Dtr appreciative. Ref[facility]. MAI King STRAINER MILL OPERATOR
[2023-04-02 20:00] VITALS: PULSE 83; RESP 16; O2SAT 95
[2023-04-02] MEDS: Amitriptyline 25 MG Tablet PO (20:25)
[2023-04-02] MEDS: Lisinopril 20 MG Tablet PO (20:27)
[2023-04-02] MEDS: traMADol 50 MG Tablet PO (21:28)
[2023-04-02 22:00] VITALS: BP 142/70; PULSE 68; RESP 15; TEMP 36.6; O2SAT 96
[2023-04-03] MEDS: Acetaminophen 325 MG Tablet 650 MG PO ×3 (05:36→21:16)
[2023-04-03] MEDS: Carbidopa/Levodopa 25/100 Tablet PO ×3 (06:18→16:31)
[2023-04-03 07:07] VITALS: BP 127/76; PULSE 68; RESP 16; TEMP 36.8; O2SAT 96
[2023-04-03] MEDS: Arthritis Pain Compound 60 CLICK TUBE TOPICAL ×2 (08:40→21:11)
[2023-04-03] MEDS: Heparin Injection (Vial) 5,000 UNIT/ML VIAL 5000 UNIT SC ×2 (08:40→21:12)
[2023-04-03] MEDS: Pantoprazole Sodium 40 MG Tablet PO (08:41)
[2023-04-03] MEDS: DULoxetine Hcl 30 MG Capsule PO (08:41)
[2023-04-03] MEDS: Ensure Plus High Protein 120 ML LIQUID PO ×2 (11:43→16:31)
[2023-04-03 21:00] VITALS: BP 105/68; PULSE 89; RESP 18; TEMP 37.1; O2SAT 96
[2023-04-03] MEDS: Amitriptyline 25 MG Tablet PO (21:09)
[2023-04-03] MEDS: Lisinopril 20 MG Tablet PO (21:09)
[2023-04-03] MEDS: traMADol 50 MG Tablet PO (21:09)
[2023-04-04] MEDS: Acetaminophen 325 MG Tablet 650 MG PO ×3 (05:54→20:19)
[2023-04-04] MEDS: Carbidopa/Levodopa 25/100 Tablet PO ×3 (05:55→17:03)
[2023-04-04 07:33] VITALS: BP 113/55; PULSE 65; RESP 14; TEMP 36.4; O2SAT 97
[2023-04-04] MEDS: Ensure Plus High Protein 120 ML LIQUID PO ×3 (08:38→17:03)
[2023-04-04] MEDS: Arthritis Pain Compound 60 CLICK TUBE TOPICAL ×2 (08:38→20:18)
[2023-04-04] MEDS: Heparin Injection (Vial) 5,000 UNIT/ML VIAL 5000 UNIT SC ×2 (08:38→20:19)
[2023-04-04] MEDS: Pantoprazole Sodium 40 MG Tablet PO (08:39)
[2023-04-04] MEDS: DULoxetine Hcl 30 MG Capsule PO (08:39)
[2023-04-04] MEDS: traMADol 50 MG Tablet PO ×2 (08:48→22:00)
[2023-04-04] MEDS: Acyclovir 800 MG Tablet PO ×4 (10:23→20:19)
--- NOTE | 2023-04-04 10:57 | PCM.PROGNOTE ---
Subjective Subjective Afebrile VSS Maintaining appropriate oxygen saturation on RA Oral intake is good Discussed with nursing - no problems that need addressed Reviewed the PT/OT/ST notes Medication list reviewed. Still complaining of burning pain from Shingles. The Zovirax did not get started and I have reordered. The pain in the R shoulder is still present but, much better since the Biceps tendon was injected. she denies nausea and she also denies diarrhea. No SAEZ and no dizziness. She is sleeping well at night since the Elavil was added to her drug regime but, she is drowsy during the day. No vomiting or dry heaving. Anxiety is better but, she is now too drowsy. Objective Data Objective Data Vital Signs: Vital Signs Temp Pulse Resp BP Pulse Ox O2 Del Method 97.5 F L 65 14 113/55 L 97 Room Air 04/04/23 07:33 04/04/23 07:33 04/04/23 07:33 04/04/23 07:33 04/04/23 07:33 04/04/23 07:33 Oxygen Delivery Method Room Air Weight: 143 lb 11.862 oz Body Mass Index (BMI) 25.4 Intake & Output: Intake and Output for Last 24 Hours 04/02/23 04/03/23 04/04/23 23:59 23:59 23:59 Intake Total 300 / 300 880 / 880 560 / 560 Output Total 1125 / 1125 350 / 350 Balance -825 / -825 880 / 880 210 / 210 Lab / Micro Data Result Diagrams: 03/25/23 05:39 03/29/23 12:35 Micro: Microbiology 03/24/23 14:29 Stool Stool Occult Blood (JONNY) - Final Physical Exam Const no apparent distress Constitutional Narrative: Drowsy but, arouses easily. General Appearance: cooperative HEENT head/scalp atraumatic and moist oral mucous membranes Resp clear to auscultation bilaterally Cardio regular rate, regular rhythm and no gallops GI normal to inspection, nondistended, normoactive bowel sounds, soft to palpation and non-tender Extremity no calf tenderness General Extremity: Negative for edema Skin Skin Narrative: Shingles rash is contained within the same dermatome. Some of the vesicles are now drying up. no purulent DC. No increased warmth to touch. Pt states they are very painful. Neuro Neuro Narrative: Not anxious today. Still with tremor of the R hand today, but, only after I start talking with her. Assessment & Plan Assessment/Plan (1) Shingles rash: PLAN: Has been started on an Antiviral. (2) Debility: (3) Cognitive impairment: (4) Cellulitis: PLAN: Resolved. (5) Anxiety: PLAN: Nausea, dry heaves, lightheadedness, diarrhea have all resolved with the addition of the Elavil to her drug regimen. She has been drowsy during the day since the Elavil was started. Will decrease the dose to 10 mg at HS. (6) Situational depression: PLAN: Continue the duloxetine for chronic back pain and depression. (7) Biceps tendinitis of right shoulder: PLAN: Much improved since the injection of the tendon. No longer c/o pain unless I ask her and then she tells me she still has some pain but, it is better since the injection. PLAN: Plan 1. Continue therapy 2. Decrease amitriptyline to 10 mg p.o. nightly 3. Zovirax 800 mg p.o. 4 times daily 4. BMP and CBC in the a.m. 5. Add low dose Gabapentin for shingles pain. Some of the vesicles are drying up. Breakout is still limited to the same dermatome and has not spread. No sign of secondary infection. Charges/Coding Visit Charges Inpatient E&M: 07390 Subs Hosp L2
[2023-04-04] MEDS: Gabapentin 100 MG Capsule PO (17:05)
[2023-04-04 20:00] VITALS: BP 108/55; PULSE 90; RESP 16; TEMP 36.8; O2SAT 97
[2023-04-04] MEDS: Amitriptyline 10 MG Tablet PO (20:18)
[2023-04-04] MEDS: Lisinopril 20 MG Tablet PO (20:20)
[2023-04-05 05:37] LABS: Hemoglobin 13.3 g/dL (12.0-15.0); Mean Corp Hgb Conc 30.9 g/dL (32-36); Mean Corpuscular Hgb 28.6 pg (27.0-32.0); Mean Corpuscular Volume 92.5 fL (81-99); Mean Platelet Vol. 9.1 fl (6.2-12.0); Platelet Count 320 K/mm3 (150-450); RBC Distribution Width CV 13.8 % (11.6-14.6); RBC Distribution Width SD 46.8 fl (35.1-43.9); Red Blood Count 4.65 M/mm3 (4.2-5.4); White Blood Count 5.3 K/mm3 (4.4-11.0)
[2023-04-05 06:02] LABS: Anion Gap 4 (5-15); BUN 41 mg/dL (7-18); BUN/Creat Ratio 33.3 RATIO (10-20); Calcium,Total 9.3 mg/dL (8.5-10.1); Chloride 103 mmol/L (98-107); Creatinine, Serum 1.23 mg/dL (0.55-1.02); EST Glomerular Filtration Rate 45 mL/min (>60); Est Glom Filt Rate - Afr Amer 55 mL/min (>60); Estimated Creatinine Clearance 32.69 ml/min; Glucose 99 mg/dL (74-106); Potassium 5.3 mmol/L (3.5-5.1); Sodium Level 137 mmol/L (136-145)
[2023-04-05] MEDS: Carbidopa/Levodopa 25/100 Tablet PO ×3 (06:05→16:15)
[2023-04-05] MEDS: Ondansetron ODT 4 MG Tablet PO ×2 (06:05→13:46)
[2023-04-05] MEDS: Acetaminophen 325 MG Tablet 650 MG PO ×3 (06:05→20:40)
[2023-04-05] MEDS: Acyclovir 800 MG Tablet PO ×4 (08:50→20:40)
[2023-04-05] MEDS: Arthritis Pain Compound 60 CLICK TUBE TOPICAL ×2 (08:50→20:39)
[2023-04-05] MEDS: Pantoprazole Sodium 40 MG Tablet PO (08:50)
[2023-04-05] MEDS: Gabapentin 100 MG Capsule PO ×3 (08:50→17:56)
[2023-04-05] MEDS: DULoxetine Hcl 30 MG Capsule PO (08:50)
[2023-04-05] MEDS: Heparin Injection (Vial) 5,000 UNIT/ML VIAL 5000 UNIT SC ×2 (08:51→20:39)
[2023-04-05 10:00] VITALS: BP 107/68; PULSE 77; RESP 17; TEMP 36.6; O2SAT 100
--- NOTE | 2023-04-05 11:03 | PCM.PROGNOTE ---
Subjective Subjective Afebrile VSS Maintaining appropriate oxygen saturation on RA Oral intake is good for food but not is good for fluids since she was diagnosed with shingles and having pain. Discussed with nursing -nursing reported to me this morning that Katheryn's potassium was high at 5.3. Nursing reports that she slept okay last night. Reviewed the PT/OT/ST notes Medication list reviewed. All lab drawn this morning was personally reviewed. White blood cell count, hemoglobin and platelets are all within normal limits. Sodium is 137 and the potassium is 5.3, up from 4.21-week ago. BUN is up to 41 from 29 1 week ago and her creatinine is 1.23, up from 1.02 last week. Creatinine on 03/24/2023 was 0.86. BUNs/creatinine ratio is markedly increased at 33.3. Katheryn continues to complain of burning pain in her right chest and back. She is sleeping better and only got up once last night. She is not c/o back pain or lightheadedness. She had some nausea this AM but, ate 75-100% of breakfast. She denies SOB, cough, vomiting, diarrhea, dysuria and calf tenderness. Objective Data Objective Data Vital Signs: Vital Signs Temp Pulse Resp BP Pulse Ox O2 Del Method 97.8 F 77 17 107/68 100 Room Air 04/05/23 10:00 04/05/23 10:00 04/05/23 10:00 04/05/23 10:00 04/05/23 10:00 04/05/23 10:00 Oxygen Delivery Method Room Air Weight: 143 lb 11.862 oz Body Mass Index (BMI) 25.4 Intake & Output: Intake and Output for Last 24 Hours 04/03/23 04/04/23 04/05/23 23:59 23:59 23:59 Intake Total 880 / 880 1120 / 1120 315 / 315 Output Total 1050 / 1050 Balance 880 / 880 70 / 70 315 / 315 Lab / Micro Data Result Diagrams: 04/05/23 05:26 04/05/23 05:26 Labs: Laboratory Results - last 24 hr 04/05/23 05:26: WBC 5.3, RBC 4.65, Hgb 13.3, Hct 43.0, MCV 92.5, MCH 28.6, MCHC 30.9 L, RDW Std Deviation 46.8 H, RDW Coeff of Brady 13.8, Plt Count 320, MPV 9.1 04/05/23 05:26: Sodium 137, Potassium 5.3 H, Chloride 103, Carbon Dioxide 30.0, Anion Gap 4 L, BUN 41 H, Creatinine 1.23 H, Estim Creat Clear Calc 32.69, Est GFR (MDRD) Af Amer 55 L, Est GFR (MDRD) Non-Af 45 L, BUN/Creatinine Ratio 33.3 H, Glucose 99, Calcium 9.3 Micro: Microbiology 03/24/23 14:29 Stool Stool Occult Blood (JONNY) - Final Physical Exam Const alert Constitutional Narrative: Appears to be in pain. Better since she received Tramadol. She is more alert today with the decrease in the dose of the Elavil. General Appearance: cooperative HEENT head/scalp atraumatic and moist oral mucous membranes Resp normal respiratory effort and clear to auscultation bilaterally Effort and Inspection: Negative for tachypneic or labored Cardio regular rate, regular rhythm and no gallops Cardio Narrative: No ectopy Rate: Negative for tachycardic GI normal to inspection, nondistended, normoactive bowel sounds, soft to palpation and non-tender GI Narrative: Last bowel movement was 617. Extremity no calf tenderness Extremity Narrative: R shoulder has no erythema, no swelling and no openings in the skin. There is no increased warmth to touch and no bruising. She is very tender with palpation of the biceps tendon at the shoulder and with contraction of the biceps. General Extremity: Negative for edema Skin Skin Narrative: Shingles rash on the chest has spread but the rash on the back is stable and the lesions are drying out. No shingles on other parts of the body. Sclera is clear and no DC from the eyes. General Skin Exam: no breakdown Rashes: no rashes Wound Narrative: She has patchy reddened areas on the anterior chest that follow the dermatome along the lateral rib to the back. Does not cross the midline. She has had a shingles vaccine in the past. There are small vesicles present.. Neuro CN's II-XII intact bilaterally, no focal motor deficits and no sensory deficits noted Neuro Narrative: Much less anxious when I talk with her. Sleeping better and no diarrhea. Much less somatic complaints. Psych thought process normal, cooperative and affect normal Assessment & Plan Assessment/Plan (1) Debility: (2) Cellulitis: (3) Biceps tendinitis of right shoulder: (4) Anxiety: (5) Shingles rash: (6) Chronic renal failure, stage 3a: (7) Hyperkalemia: (8) Acute renal failure: (9) Intravascular volume depletion: PLAN: Plan 1. Probable DC tomorrow to SNF......family had been planning on taking her home but, decided over the weekend to have her go to [facility] ( I suspect this is because there are young children at home and she has shingles). 2. Hydrate today and recheck a BMP in the AM. Hold the Lisinopril and Use PRN Hydralazine if the BP increases. 3. Continue Zovirax and Gabapentin. She is also on Elavil to help with shingles pain........she could not tolerate the higher dose of the Elavil because it made her too drowsy. 4. Increase duloxetine to 40 mg daily. Charges/Coding Visit Charges Inpatient E&M: 40793 Subs Hosp L2
[2023-04-05] MEDS: Ensure Plus High Protein 120 ML LIQUID PO ×2 (12:45→16:15)
[2023-04-05] MEDS: 0.9% Normal Saline 1,000 ML 100 ML IV ×2 (12:55→23:13)
--- NOTE | 2023-04-05 13:36 | CASEMGMT ---
Social Work After several [facility] correspondence with [facility], pt is accepted and can admit today. However, this worker spoke with Dr and pt had change in potassium levels. Dr. requesting pt DC tomorrow. [facility] agreeable. LEXUS phoned dtr to update and inquire about transport. Dtr requesting transport. LEXUS phoned Physician's to schedule w/c transport for 1300 on 04/06 to [facility]. 7000 started. DC paperwork to be sent. LEXUS phoned Miranda at [facility] to update. Nurse to be sent to [facility] about 5pm. LEXUS spoke with pt's to update. Plan: DC 04/06 [facility], [facility], [facility]. Zoe Payton MSW MOTOR BOSS
--- NOTE | 2023-04-05 14:17 | CASEMGMT ---
Addendum entered by Zoe Payton 04/06/23 12:44: 7000 completed and DC paperwork sent via [facility] to [facility] Original Note: Social Work After several [facility] correspondence with [facility], pt is accepted and can admit today. However, this worker spoke with Dr and pt had change in potassium levels. . requesting pt DC tomorrow. [facility] agreeable. SW phoned dtr to update and inquire about transport. Dtr requesting transport. SW phoned Physician[facility] to schedule w/c transport for 1300 on 04/06 to [facility]. 7000 started. DC paperwork to be sent. Plan: DC 04/06 [facility], skilled Zoe Payton, MAI AGUILAR
[2023-04-05 19:49] VITALS: BP 122/70; PULSE 94; RESP 16; TEMP 36.8; O2SAT 95
[2023-04-05 20:20] VITALS: PULSE 94; RESP 16; O2SAT 95
[2023-04-05] MEDS: Amitriptyline 10 MG Tablet PO (20:40)
[2023-04-05] MEDS: traMADol 50 MG Tablet PO (20:41)
[2023-04-06] MEDS: traMADol 50 MG Tablet PO (05:09)
[2023-04-06] MEDS: Acetaminophen 325 MG Tablet 650 MG PO (05:11)
[2023-04-06 06:00] LABS: Anion Gap 2 (5-15); BUN 30 mg/dL (7-18); BUN/Creat Ratio 27.8 RATIO (10-20); Calcium,Total 8.6 mg/dL (8.5-10.1); Chloride 105 mmol/L (98-107); Creatinine, Serum 1.08 mg/dL (0.55-1.02); EST Glomerular Filtration Rate 53 mL/min (>60); Est Glom Filt Rate - Afr Amer 64 mL/min (>60); Estimated Creatinine Clearance 37.23 ml/min; Glucose 91 mg/dL (74-106); Potassium 4.5 mmol/L (3.5-5.1); Sodium Level 137 mmol/L (136-145)
[2023-04-06] MEDS: Carbidopa/Levodopa 25/100 Tablet PO ×2 (06:46→11:54)
[2023-04-06 07:48] VITALS: BP 148/76; PULSE 64; RESP 16; TEMP 36.9; O2SAT 95
[2023-04-06] MEDS: Ensure Plus High Protein 120 ML LIQUID PO ×2 (08:13→11:55)
[2023-04-06] MEDS: Pantoprazole Sodium 40 MG Tablet PO (08:13)
[2023-04-06] MEDS: DULoxetine Hcl 20 MG Capsule 40 MG PO (08:13)
[2023-04-06] MEDS: Heparin Injection (Vial) 5,000 UNIT/ML VIAL 5000 UNIT SC (08:13)
[2023-04-06] MEDS: Arthritis Pain Compound 60 CLICK TUBE TOPICAL (08:14)
[2023-04-06] MEDS: Acyclovir 800 MG Tablet PO (08:14)
[2023-04-06] MEDS: Gabapentin 100 MG Capsule PO ×2 (08:16→11:54)
--- NOTE | 2023-04-06 10:28 | TREXTCAR_ITS ---
Diet Diet Order/Speech Therapy: 03/24/23 12:57 Diet: Regular - General Food consistency:: Regular Liquid Consistency:: Regular/Thin Type of Dietary Supplement:: Ensure Plus High Protein Diet Comments: 120mL TID with meals Routine Orders/Code Status Enema Type: Fleetz Enema Frequency: Daily PRN Suppository Type: Dulcolax 10mg Suppository Frequency: Daily PRN Keep PO Greater than or Equal to (%): 90 Routine Lab Work: [facility] (04/09/23) Code Status: Full Code Wound(s) rt top hobson: Wound Type: scab top of rt lower hobson: Wound Type: blister right shoulder: Wound Type: shingles blisters rt breast: Wound Type: shingles blisters rt upper back: Wound Type: shingles rash Therapies Physical Therapy: Eval and Treat Occupational Therapy: Eval and Treat Speech Therapy: Eval and Treat (for cognitive/memory deficit) Problem/Diagnosis (1) Debility: Status: Acute Code(s): R53.81 - Other malaise (2) Cellulitis: Status: Resolved Code(s): L03.90 - Cellulitis, unspecified (3) Biceps tendinitis of right shoulder: Status: Acute Code(s): M75.21 - Bicipital tendinitis, right shoulder Comment: Much improved after injection of the R biceps tendon. (4) Anxiety: Status: Chronic Code(s): F41.9 - Anxiety disorder, unspecified Plan: Continue Duloxetine for anxiety/depression and chronic back pain. Continue Elavil at for insomnia/anxiety/IBS. No longer having diarrhea, lightheadedness, numb hands and feet, dry heaves, insomnia since she has been started on these medications. Also she has not c/o back pain in several days. She lives in her home and her granddaughter and 2 very young great grandchildren. Was very anxious at admission to rehab. Panic attacks manifest as multiple somatic sx with nausea/dry heaves, lightheadedness, diarrhea, numbness in her hands and feet and back pain complaints. (5) Shingles rash: Status: Acute Code(s): B02.9 - Zoster without complications Plan: Currently on Zovirax 800 mg 4 times daily and Gabapentin 100 mg TID. Pain/burning is still present but, much better than it had been. (6) Chronic renal failure, stage 3a: Status: Chronic Code(s): N18.31 - Chronic kidney disease, stage 3a Plan: She has atrophy of the Left kidney. She has has had decreased fluid intake since shingles started. Creat went from 0.86 on 03/24/2023-1.23 on 04/05/2023. K went up to 5.3 and we had to discontinue Lisinopril. she was started on IV fluids on 04/05/23She was started on Metoprolol XL 25 mg daily on 04/06/23. Potassium at DC is down to 4.5 and the creat is 1.08. (7) Hyperkalemia: Status: Resolved Code(s): E87.5 - Hyperkalemia (8) Acute renal failure: Status: Resolved Code(s): N17.9 - Acute kidney failure, unspecified (9) Intravascular volume depletion: Status: Acute Code(s): E86.1 - Hypovolemia Plan: To a mild degree this is chronic due to decreased fluid intake when she is anxious and having N/dry heaves/diarrhea. She is doing much better since we are treating the anxiety. (10) Venous insufficiency (chronic) (peripheral): Status: Chronic Code(s): I87.2 - Venous insufficiency (chronic) (peripheral) Plan: Well controlled with CALEB corona. (11) Cognitive impairment: Status: Acute Code(s): R41.89 - Other symptoms and signs involving cognitive functions and awareness (12) HLD (hyperlipidemia): Status: Chronic Code(s): E78.5 - Hyperlipidemia, unspecified (13) Situational depression: Status: Acute Code(s): F43.21 - Adjustment disorder with depressed mood (14) Renal calculus, right: Status: Chronic Code(s): N20.0 - Calculus of kidney Plan: Stable on recent CT scan of the abdomen and pelvis. Plan 1. Hyperkalemia has resolved and the creat is better. Will DC to [facility] for ongoing therapy. I suspect her family is hesitant to have her come home because of Shingles and the 2 young children at home. She did well in therapy and could go home at this point with support from family. 2. Encourage increased fluid intake and recheck a BMP on 04/09/23. 3. Started on Metoprolol XL 25 mg on the day of DC. BP was well controlled on Lisinopril 20 mg however she only has one kidney and she got hyperkalemic so we elected to DC. 4. The Gabapentin makes her drowsy during the day. Would try to get rid of it when Shingles resolve. Allergies/Procedures Done in Hospital Allergies nitrofurantoin [From Macrobid] Allergy (Verified 03/21/23 15:03) Hives hydrocodone [From Vicodin] Adverse Reaction (Verified 03/21/23 15:03) Vomiting morphine Adverse Reaction (Verified 03/21/23 15:03) Vomiting pregabalin [From Lyrica] Adverse Reaction (Verified 03/21/23 15:03) Vomiting Procedures: None Type of Care/Length of Stay Estimated LOS: Convalescent Care Less Than 30 days Type of Care Needed: Skilled Rehab Potential: Good Prognosis: Good Additional Orders/Day of Discharge Additional Orders: Encourage increased fluid intake. H&P will serve as current which was dated: 03/24/23 Day of Discharge: 04/06/23 Dietary and Speech Recommendations Dietitian Recommendations/Changes: Continue Regular diet to optimize oral intakes and provide supplemental energy. RD will order 120mL EPHP TID with meals per pt request. Follow Up Care Please follow up with your Primary Care Physician in: Following discharge from retirement. Please Follow Up With: neurology Discharge Plan Admission Admit Date/Time: 03/24/23 12:30 Primary Reason for Your Visit: Back pain with gait disturbance and generalized weakness. Attending Provider: Jasmina Alvarado Primary Care Provider: Sudarshan Galarza Consulting Providers: Odell Cooper Instructions Patient Instructions: Essential Tremor (ET), Understanding Parkinson Disease, Parkinson Common Symptoms, ED Anxiety Reaction, ED Panic Attack Additional Instructions / Restrictions: 1. I do not think you have Parkinson's disease. I think that the tremor in your R arm is an essential tremor. We have had you on medications for Parkinson's and it has not made any difference in the tremor or your balance. I have given you some literature to read on Parkinson's and also on essential tremor. I am not going to continue the Parkinson's medication.......no sense taking a medication that does not work for you. 2. The shingles rash is starting to regress and your pain is improving. Some of the medication for Shingles is making you drowsy in the day so hopefully we can get rid of the Gabapentin soon. The Gabapentin was not helping the back pain but, it is helping you with the nerve pain associated with shingles. 3. You have been taking Lisinopril for high blood pressure. This medication can cause your body to retain potassium. When the potassium gets too high it can cause problems with the rhythm of the heart. You only have 1 functional kidney and you need to drink enough fluid to keep your urine a pale yellow and keep the lone kidney functioning well. We had to stop the Lisinopril because your potassium was too high and instead of Lisinopril you will taking a medication called Metoprolol XL to control the BP. This is also a once a day drug. 4. You have a lot of anxiety Katheryn. I think it is anxiety that is causing the tremor in the R arm, diarrhea, nausea, dry heaves, lightheadedness, insomnia and abdominal pain. Since we started you on medication to control anxiety you have not had diarrhea and you have not been complaining of nausea or had dry heaves. You are eating well and you have not complained of lightheadedness. It may help you to see a social media intern or psychologist for some therapy so you can learn to control the anxiety. You live in a busy household. Small children can make a lot of noise and for someone your age it can be overwhelming. Create a space in your house where you can get away from the noise and chaos and when you are getting upset go to that place and relax. I know you love your grand children and your great grand children and enjoy them being around.......as we get older we can not tolerate noise and chaos as well as we did when we are in our 20's-30's. It is OK to need some quiet and be alone for awhile. 5. I have really enjoyed meeting you and having you on Rehab.......you are a special person and I think it is great that you are giving your family a nice safe place to live. Your happiness is important so make sure to take care of yourself. It may help you to get out of the house a few times a week and be with friends or do something you really enjoy. If you or your family have any questions please do not hesitate to call me. OFFICE: [phone] CELL: [phone] Discharge Orders/Prescriptions Prescriptions: New sennosides [senna] 8.6 mg Tablet 2 tab PO DAILY PRN PRN (Reason: Constipation) Qty: 1 0RF loperamide 2 mg Capsule 2 mg PO Q4H PRN PRN (Reason: Diarrhea) Qty: 1 0RF tramadol 50 mg Tablet 25 - 50 mg PO Q6H PRN PRN (Reason: pain 4-10) Qty: 20 0RF acyclovir 800 mg Tablet 800 mg PO 4X/DAY Qty: 28 0RF amitriptyline 10 mg Tablet 10 mg PO 1900 Qty: 1 0RF gabapentin 100 mg Capsule 100 mg PO TIDCM Qty: 1 0RF metoprolol succinate 25 mg Tablet Extended Release 24 Hr 25 mg PO DAILY Qty: 1 0RF duloxetine 20 mg Capsule,Delayed Release(Dr/Ec) 30 mg PO QHS Qty: 1 0RF food supplemt, lactose-reduced 0.08 gram-1.5 kcal/mL Liquid 120 ml PO TIDCM Qty: 1 0RF Continued acetaminophen 500 MG tablet 500 mg PO Q8H PRN PRN (Reason: Pain 1-10 Or Fever) ondansetron 4 mg tablet,disintegrating 4 mg PO Q8H PRN PRN (Reason: Nausea) Qty: 10 0RF pantoprazole 40 mg Tablet,Delayed Release (Dr/Ec) 40 mg PO DAILY simethicone 80 mg Tablet,Chewable 80 mg PO TID Discontinued gabapentin 100 mg capsule 300 mg PO TID Rx Instructions: for 30 days. started 03/08/23 lisinopril 20 MG tablet 20 mg PO QHS polyethylene glycol 3350 [Miralax] 17 gram Powder In Packet 17 g PO DAILY Rx Instructions: until stools are regular up to two (2) weeks sertraline 50 mg Tablet 50 mg PO DAILY cephalexin 500 mg capsule 500 mg PO TID Referrals / Follow Up: Rubio Escalante MD [Other] Karthikeyan Mix DPM [Med Staff - Active Staff] - (3 months nail care) Sudarshan Galarza MD [Primary Care Provider] - Disposition Disposition (needs filled in before D/C Order can be placed): [facility] (1) HLD (hyperlipidemia) Qualifiers: Hyperlipidemia type: unspecified Qualified Code(s): E78.5 - Hyperlipidemia, unspecified
[2023-04-06 11:55] VITALS: BP 147/86; PULSE 64
[2023-04-06] MEDS: Metoprolol(XL)Succ 25 MG Tablet PO (11:55)
--- NOTE | 2023-04-06 12:59 | PCM.DC.SUM ---
Providers Date of Admission: 03/24/23 Date of Discharge: 04/06/23 Primary Care Physician: Dr. Sudarshan Galarza MD Consultations 03/25/23 11:04 Consult: Podiatry Routine Consulting Provider: Odell Cooper Reason for Consult: nail debridement EMERGENT Consult: No MD Notified: Yes Date Notified: 03/25/23 Time Notified: 11:04 Method of Notification: Verbal Reason For Visit: NECK AND BACK PAIN Diagnosis Discharge Diagnosis (1) Debility: Status: Acute Code(s): R53.81 - Other malaise (2) Cellulitis: Status: Resolved Code(s): L03.90 - Cellulitis, unspecified (3) Biceps tendinitis of right shoulder: Status: Acute Code(s): M75.21 - Bicipital tendinitis, right shoulder (4) Anxiety: Status: Chronic Code(s): F41.9 - Anxiety disorder, unspecified Plan: Continue Duloxetine for anxiety/depression and chronic back pain. Change the Cymbalta to HS because it is contributing to drowsiness during the day. Continue Elavil at for insomnia/anxiety/IBS/Shingles pain. No longer having diarrhea, lightheadedness, numb hands and feet, dry heaves, insomnia since she has been started on these medications. Also she has not c/o back pain in several days. She lives in her home and her granddaughter and 2 very young great grandchildren. Was very anxious at admission to rehab. Panic attacks manifest as multiple somatic sx with nausea/dry heaves, lightheadedness, diarrhea, numbness in her hands and feet and back pain complaints. (5) Shingles rash: Status: Acute Code(s): B02.9 - Zoster without complications Plan: Currently on Zovirax 800 mg 4 times daily and Gabapentin 100 mg TID. Pain/burning is still present but, much better than it had been. Would try to DC Gabapentin when Shingles resolves. It did not help with back pain and it makes her drowsy and confused. (6) Chronic renal failure, stage 3a: Status: Chronic Code(s): N18.31 - Chronic kidney disease, stage 3a Plan: She has atrophy of the Left kidney. She has has had decreased fluid intake since shingles started. Creat went from 0.86 on 03/24/2023-1.23 on 04/05/2023. K went up to 5.3 and we had to discontinue Lisinopril. she was started on IV fluids on 04/05/23She was started on Metoprolol XL 25 mg daily on 04/06/23. Potassium at DC is down to 4.5 and the creat is 1.08. (7) Hyperkalemia: Status: Resolved Code(s): E87.5 - Hyperkalemia (8) Acute renal failure: Status: Resolved Code(s): N17.9 - Acute kidney failure, unspecified (9) Intravascular volume depletion: Status: Chronic Code(s): E86.1 - Hypovolemia Plan: To a mild degree this is chronic due to decreased fluid intake when she is anxious and having N/dry heaves/diarrhea. She is doing much better since we are treating the anxiety. (10) Venous insufficiency (chronic) (peripheral): Status: Chronic Code(s): I87.2 - Venous insufficiency (chronic) (peripheral) Plan: Well controlled with CALEB corona. (11) Cognitive impairment: Status: Acute Code(s): R41.89 - Other symptoms and signs involving cognitive functions and awareness (12) HLD (hyperlipidemia): Status: Chronic Code(s): E78.5 - Hyperlipidemia, unspecified Qualifiers: Hyperlipidemia type: unspecified Qualified Code(s): E78.5 - Hyperlipidemia, unspecified (13) Situational depression: Status: Acute Code(s): F43.21 - Adjustment disorder with depressed mood (14) Renal calculus, right: Status: Chronic Code(s): N20.0 - Calculus of kidney Plan: Stable on recent CT scan of the abdomen and pelvis. Plan 1. Hyperkalemia has resolved and the creat is better. Will DC to [facility] for ongoing therapy. I suspect her family is hesitant to have her come home because of Shingles and the 2 young children at home. She did well in therapy and could go home at this point with support from family. 2. Encourage increased fluid intake and recheck a BMP on 04/09/23. 3. Started on Metoprolol XL 25 mg on the day of DC. BP was well controlled on Lisinopril 20 mg however she only has one kidney and she got hyperkalemic so we elected to DC. 4. The Gabapentin makes her drowsy during the day. Would try to get rid of it when Shingles resolve. Medications at Discharge Home Medications acetaminophen 500 mg tablet 500 mg PO Q8H PRN PRN Pain 1-10 Or Fever 01/10/21 ondansetron 4 mg disintegrating tablet 4 mg PO Q8H PRN PRN Nausea #10 tabs 11/15/22 pantoprazole 40 mg tablet,delayed release 40 mg PO DAILY GERD 03/22/23 simethicone 80 mg chewable tablet 80 mg PO TID Gas 03/22/23 acyclovir 800 mg tablet 800 mg PO 4X/DAY #28 tabs 04/06/23 amitriptyline 10 mg tablet 10 mg PO 1900 #1 TAB 04/06/23 duloxetine 20 mg capsule,delayed release 30 mg PO QHS #1 cap 04/06/23 food supplemt, lactose-reduced 0.08 gram-1.5 kcal/mL oral liquid 120 ml PO TIDCM #1 mL 04/06/23 gabapentin 100 mg capsule 100 mg PO TIDCM #1 cap 04/06/23 loperamide 2 mg capsule 2 mg PO Q4H PRN PRN Diarrhea #1 cap 04/06/23 metoprolol succinate 25 mg tablet,extended release 24 hr 25 mg PO DAILY #1 TAB 04/06/23 sennosides 8.6 mg tablet (senna) 2 tab PO DAILY PRN PRN Constipation #1 TAB 04/06/23 tramadol 50 mg tablet 25 - 50 mg PO Q6H PRN PRN pain 4-10 #20 tabs 04/06/23 Hospital Course Operations None Procedures - (R biceps tendon injected with Marcaine and Triamcinolone for acute Biceps tendonitis.) Summary of Care Provided Minutes Spent on Discharge: 50 Hospital Course: KATHERYN MERINO, is a 73 YO F with a past medical history of hypertension, fibromyalgia, GERD, hyperlipidemia, irritable bowel syndrome, Parkinson's disease (untreated), history of nephrolithiasis (stone in the R kidney which is stable on recent CT), scoliosis of the thoracic and lumbar spine and anxiety/depression who presented to the ED at [facility] on 03/21/2023 complaining of back pain, right-sided abdominal pain and nausea.? Temp in the ER was 102.7 axillary and this was confirmed with a rectal temp.? White blood cell count was elevated at 17.5 with 88% neutrophils.? BUN was elevated at 20 with a creatinine of 1.03 which is within her baseline.? Lactic acid was normal at 1.5.? LFTs were unremarkable with the exception of an elevated total bilirubin which I suspect is due to Gilbert's since it has been elevated in the past with stress.? Calcium was low at 7.6 but when corrected for hypoalbuminemia the calcium is within normal limits.? CT scan of the cervical spine showed degenerative changes.? CT scan of the thoracic spine showed increased kyphosis and levoscoliosis.? There were degenerative changes and diffuse demineralization.? CT scan of the lumbar spine showed stable multilevel spondylosis with mild to moderate dextro convexity scoliosis.? CT scan of the abdomen and pelvis showed hepatomegaly with mild intrahepatic bile duct distention.? The gallbladder was absent.?There was stable chronic atrophy of the left kidney and a nonobstructing stone in the upper pole of the right kidney which is stable since the last exam.? There was moderate diffuse fecal retention.? Chest x-ray showed no infiltrates.? On PE she was noted to have erythema and increased warmth of the distal lower extremity and was diagnosed with cellulitis.? She was admitted to the hospitalist service and started on Zosyn and vancomycin.? She improved over the next few days and she was seen by PT/OT for generalized weakness.? Acute rehab was recommended and she was transferred to the acute inpt unit on 03/24/23 for 3 hours of therapy daily to restore Function/independence at or near her level prior to admission to the hospital. ?She was transitioned to Keflex prior to transfer to rehab. Katheryn was quite anxious at presentation to rehab. She had insomnia and many somatic complaints that included lightheadedness, abd pain, diarrhea, back pain, neck pain, dry heaves and numbness in the hands and feet. She was having these sx frequently at home and she was taking Sertraline 50 mg. 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 I elected to stop the Sertraline and start duloxetine. She continued to have trouble sleeping and amitriptyline was added at at bedtime. She began to sleep better and she was no longer c/o back pain, neck pain, lightheadedness or abdominal pain. The diarrhea had resolved. She was doing very well in therapy and was ambulating with a FWW at a good pace with no LOB. She started c/o pain in the R shoulder and on exam the pain was due to inflammation of the biceps tendon (likely due to heavy leaning on the walker). We tried an arthritis cream and it did not help much. I injected the biceps tendon with Marcaine and triamcinolone. 20 minutes later the pain was nearly gone. She continues to complain of a little soreness but it is much better. Unfortunately, Katheryn developed shingles while on rehab and they are located in the upper right anterior chest and then the upper right back. She was started on Zovirax 800 mg 4 times daily. She continued to complain of severe burning and we started gabapentin back for nerve pain. This helped with the pain but unfortunately made her more drowsy. She arouses easily and has been able to do therapy. Gabapentin, although it did not help the back, was effective in helping with Shingles pain. On the day of DC there are some scabs developing and the rash is defervesced seeing. It never extended beyond the original dermatome. Katheryn has been diagnosed as having PD (she does not know who made this diagnosis) but, has never been on treatment. She has a tremor of the RUE only and she has a mild festinating gait but, no rigidity and no bradykinesia. She was started on Sinemet but, this made no difference in the gait or the tremor and so it was discontinued. She has an appt with a neurologist in April. I suspect she has essential tremor and not PD. When she developed Shingles her fluid intake decreased and she went into ARF with creat increasing from 0.86 to 1.23. K went up to 5.3. Lisinopril was discontinued and she was hydrated and the following morning the K was back to 4.5 and the creat was 1.08 which seems to be her baseline. Because she only has 1 functional kidney and tends not to drink enough fluids we elected to start a different antihypertensive and she was started on Metoprolol XL 25 mg daily prior to DC. Katheryn did well in therapy and was pleasant and cooperative and clam, never refusing therapy. Prior to discharge she was supervision/set up for eating, grooming and upper body dressing. She was standby assist with toileting and toilet transfer. She was contact-guard assist for tub/shower transfer and required only minimal assistance with bathing and lower body dressing. She is able to ambulate using a FWW at least 165' with no LOB at CGA. Katheryn's family did not feel she was ready to go home yet and requested a SNF for continued therapy prior to returning home. I suspect this had more to do with Shingles than Katheryn's abilities. The arranged for transfer to [facility] and Katheryn was transferred on 04/06/22. She will follow up with Dr. Galarza following DC from [place] and she also has an appt with neurology coming up in April. Physical Exam Const alert, oriented x3 and no apparent distress Constitutional Narrative: A little drowsy but, perks up when you talk to her, trish if she is talking about the great grand children. She is calm and had no RUE tremor until we had been talking for a couple minutes. She is always pleasant and talkative. General Appearance: cooperative HEENT head/scalp atraumatic and moist oral mucous membranes Resp normal respiratory effort, normal air movement and clear to auscultation bilaterally Effort and Inspection: Negative for tachypneic or labored Cardio regular rate, regular rhythm and no gallops Cardio Narrative: No ectopy Rate: Negative for tachycardic GI normal to inspection, nondistended, normoactive bowel sounds, soft to palpation and non-tender GI Narrative: Has not c/o abd pain or nausea or diarrhea for severeal days. Inspection: Negative for abdominal distention Extremity no calf tenderness Extremity Narrative: R shoulder has no erythema, no swelling and no openings in the skin. There is no increased warmth to touch and no bruising. Minimal tenderness with flexion of the R biceps or palpation of the biceps tendon. She initially had mild edema of the ankles but, we have been applying CALEB hose and the edema has completely resolved. General Extremity: Negative for edema Skin General Skin Exam: no breakdown Rashes: no rashes Wound Narrative: She has patchy reddened areas on the anterior chest that follow the dermatome along the lateral ribs to the back. Does not cross the midline. She has had a shingles vaccine in the past. There are now scabs developing and there is no discharge from the rash. No evidence of secondary infection. The burning pain is much better and she is no longer c/o this to nursing. She has macular redness on both cheeks that has been present for several days. No vesicles and no openings in the skin. I suspect she may have rosacea because it is on both cheeks. These areas are not painful. Neuro CN's II-XII intact bilaterally, no focal motor deficits and no sensory deficits noted Neuro Narrative: Much less anxious when I talk with her. Sleeping better and no diarrhea. Much less somatic complaints. Psych thought process normal, cooperative and affect normal Psych Narrative: She is calm but, continues to have the tremor of the RUE. Appearance: appropriate Attitude: No agitated Activity / Motor Behavior: Negative for restless Thought Content: No hallucination(s) Weight / BMI Weight Weight: 143 lb 11.862 oz Body Mass Index (BMI) 25.4 ABG / Lab / Microbiology Data Result Diagrams: 04/05/23 05:26 04/06/23 05:16 Laboratory: Laboratory Results - last 24 hr 04/06/23 05:16: Sodium 137, Potassium 4.5, Chloride 105, Carbon Dioxide 30.0, Anion Gap 2 L, BUN 30 H, Creatinine 1.08 H, Estim Creat Clear Calc 37.23, Est GFR (MDRD) Af Amer 64, Est GFR (MDRD) Non-Af 53 L, BUN/Creatinine Ratio 27.8 H, Glucose 91, Calcium 8.6 Microbiology: Microbiology 03/24/23 14:29 Stool Stool Occult Blood (JONNY) - Final D/C Instructions Discharge Diet: No restrictions (Make sure to cut meats into small bites. She is on thin liquids and regular textures. ) Discharge Activity: May Not Drive and Use Walker Weight Bearing Status: Full weight bearing Lifting Restrictions: no > 5 lbs due to chronic nack pain from DDD, DJS, scoliosis/kyphosis Call your doctor if you observe: Fever of 101 or Higher, Shortness of breath, Fainting spells, Chest pain, Calf discomfort, Uncontrolled pain and - (any spread of shingles rash or altered mental status. ) Please Follow Up With: neurology When: She has an appt already scheduled by family with neurology in April and she should follow up with Dr. Galarza at [place] from [facility]. She should also follow up with Dr. Cooper, Dr. Mitchell or Dr. Mix in about 6-9 weeks for nail debridement. Meaningful Use Info Meaningful Use Diagnoses (Choose all that apply): None applicable Discharge Plan Admission Admit Date/Time: 03/24/23 12:30 Primary Reason for Your Visit: Back pain with gait disturbance and generalized weakness. Attending Provider: Jasmina Alvarado Primary Care Provider: Sudarshan Galarza Consulting Providers: Odell Cooper Instructions Additional Instructions / Restrictions: 1. I do not think you have Parkinson's disease. I think that the tremor in your R arm is an essential tremor. We have had you on medications for Parkinson's and it has not made any difference in the tremor or your balance. I have given you some literature to read on Parkinson's and also on essential tremor. I am not going to continue the Parkinson's medication.......no sense taking a medication that does not work for you. 2. The shingles rash is starting to regress and your pain is improving. Some of the medication for Shingles is making you drowsy in the day so hopefully we can get rid of the Gabapentin soon. The Gabapentin was not helping the back pain but, it is helping you with the nerve pain associated with shingles. 3. You have been taking Lisinopril for high blood pressure. This medication can cause your body to retain potassium. When the potassium gets too high it can cause problems with the rhythm of the heart. You only have 1 functional kidney and you need to drink enough fluid to keep your urine a pale yellow and keep the lone kidney functioning well. We had to stop the Lisinopril because your potassium was too high and instead of Lisinopril you will taking a medication called Metoprolol XL to control the BP. This is also a once a day drug. 4. You have a lot of anxiety Katheryn. I think it is anxiety that is causing the tremor in the R arm, diarrhea, nausea, dry heaves, lightheadedness, insomnia and abdominal pain. Since we started you on medication to control anxiety you have not had diarrhea and you have not been complaining of nausea or had dry heaves. You are eating well and you have not complained of lightheadedness. It may help you to see a professor of social work or psychologist for some therapy so you can learn to control the anxiety. You live in a busy household. Small children can make a lot of noise and for someone your age it can be overwhelming. Create a space in your house where you can get away from the noise and chaos and when you are getting upset go to that place and relax. I know you love your grand children and your great grand children and enjoy them being around.......as we get older we can not tolerate noise and chaos as well as we did when we are in our 20's-30's. It is OK to need some quiet and be alone for awhile. 5. I have really enjoyed meeting you and having you on Rehab.......you are a special person and I think it is great that you are giving your family a nice safe place to live. Your happiness is important so make sure to take care of yourself. It may help you to get out of the house a few times a week and be with friends or do something you really enjoy. If you or your family have any questions please do not hesitate to call me. OFFICE: [phone] CELL: [phone] Discharge Orders/Prescriptions Prescriptions: New sennosides [senna] 8.6 mg Tablet 2 tab PO DAILY PRN PRN (Reason: Constipation) Qty: 1 0RF loperamide 2 mg Capsule 2 mg PO Q4H PRN PRN (Reason: Diarrhea) Qty: 1 0RF tramadol 50 mg Tablet 25 - 50 mg PO Q6H PRN PRN (Reason: pain 4-10) Qty: 20 0RF acyclovir 800 mg Tablet 800 mg PO 4X/DAY Qty: 28 0RF amitriptyline 10 mg Tablet 10 mg PO 1900 Qty: 1 0RF gabapentin 100 mg Capsule 100 mg PO TIDCM Qty: 1 0RF metoprolol succinate 25 mg Tablet Extended Release 24 Hr 25 mg PO DAILY Qty: 1 0RF duloxetine 20 mg Capsule,Delayed Release(Dr/Ec) 30 mg PO QHS Qty: 1 0RF food supplemt, lactose-reduced 0.08 gram-1.5 kcal/mL Liquid 120 ml PO TIDCM Qty: 1 0RF Continued acetaminophen 500 MG tablet 500 mg PO Q8H PRN PRN (Reason: Pain 1-10 Or Fever) ondansetron 4 mg tablet,disintegrating 4 mg PO Q8H PRN PRN (Reason: Nausea) Qty: 10 0RF pantoprazole 40 mg Tablet,Delayed Release (Dr/Ec) 40 mg PO DAILY simethicone 80 mg Tablet,Chewable 80 mg PO TID Discontinued gabapentin 100 mg capsule 300 mg PO TID Rx Instructions: for 30 days. started 03/08/23 lisinopril 20 MG tablet 20 mg PO QHS polyethylene glycol 3350 [Miralax] 17 gram Powder In Packet 17 g PO DAILY Rx Instructions: until stools are regular up to two (2) weeks sertraline 50 mg Tablet 50 mg PO DAILY cephalexin 500 mg capsule 500 mg PO TID Referrals / Follow Up: Rubio Escalante MD [Other] (Please schedule appt as soon as possible for Parkinson's ) Karthikeyan Mix DPM [Med Staff - Active Staff] - (3 months nail care) Sudarshan Galarza MD [Primary Care Provider] - Disposition Disposition (needs filled in before D/C Order can be placed): [facility] Facility Charges/Coding Visit Charges Inpatient E&M: 55639 Disch Hosp >30min
--- NOTE | 2023-04-06 13:03 | NURSING ---
discharged to [facility] via [facility] transport.report called to Hilda
[2023-04-06 13:05] VITALS: BP 148/76; PULSE 64; RESP 16; TEMP 36.9; O2SAT 95
== END 2023-04-06 13:07 | disposition skilled nursing facility (03) | DRG 603 ==
PROVIDERS: Admitting Provider Internal Medicine; PCP Family Medicine; Referring Provider Internal Medicine; Visit Provider Internal Medicine
DX: L03.115 Cellulitis of right lower limb (principal); M41.85 Other forms of scoliosis, thoracolumbar region; G20 Parkinson's disease; E78.5 Hyperlipidemia, unspecified; B35.1 Tinea unguium; B02.9 Zoster without complications; N18.31 Chronic kidney disease, stage 3a; I12.9 Hypertensive chronic kidney disease with stage 1 through stage 4 chronic kidney disease, or unspecified chronic kidney disease; K21.9 Gastro-esophageal reflux disease without esophagitis; K58.2 Mixed irritable bowel syndrome; M75.21 Bicipital tendinitis, right shoulder; M79.7 Fibromyalgia; I87.2 Venous insufficiency (chronic) (peripheral); F43.21 Adjustment disorder with depressed mood; E86.1 Hypovolemia; F41.0 Panic disorder [episodic paroxysmal anxiety]; N20.0 Calculus of kidney; Z79.899 Other long term (current) drug therapy; R41.89 Other symptoms and signs involving cognitive functions and awareness
CPT/HCPCS: 36415; 51702; 71045; 72125; 72128; 72131; 73020; 74176; 74177; 80048; 80053; 80202; 81001; 82274; 82607; 83605; 83690; 84145; 84443; 85025; 85027; 85652; 86140; 86780; 87040; 87811; 92507; 92523; 92526; 92610; 96361; 96365; 96366; 96367; 96372; 96375; 96376; 97110; 97112; 97116; 97129; 97130; 97162; 97166; 97530; 97535; 97802; 99221; 99285; J7030; J7040; J7050; Q9967; A4216; G0378; J2405; J3420

== ENCOUNTER 2023-11-12 18:48 | Emergency (ER) | payer MEDICARE, BC, SELFPAY ==
[2023-11-12 18:50] VITALS: BP 181/134; PULSE 99; RESP 16; TEMP 36.2; O2SAT 98; BMI 27.1
[2023-11-12 18:52] VITALS: BP 188/122; PULSE 93; RESP 16; O2SAT 97
--- NOTE | 2023-11-12 18:53 | EDS_ITS ---
HPI HPI - Fall History of Present Illness Chief Complaint: Fall PFSH PFSH Medical History (Updated 11/12/23 @ 22:[address] Luis Jimenes, DO) Chronic kidney disease (CKD) stage G3a/A2, moderately decreased glomerular filtration rate (GFR) between 45-59 mL/min/1.73 square meter and albuminuria creatinine ratio between 30-299 mg/g Chronic renal failure, stage 3a Fibromyalgia GERD (gastroesophageal reflux disease) HLD (hyperlipidemia) HTN (hypertension) Irritable bowel syndrome with both constipation and diarrhea Lumbar radiculopathy Parkinson disease Renal calculus, right Scoliosis of thoracolumbar spine Situational depression Thoracic radiculopathy due to degenerative joint disease of spine Venous insufficiency (chronic) (peripheral) Home Medications acetaminophen 500 mg tablet 500 mg PO Q8H PRN PRN Pain 1-10 Or Fever 01/10/21 [History Last Taken Unknown] ondansetron 4 mg disintegrating tablet 4 mg PO Q8H PRN PRN Nausea #10 tabs 11/15/22 [Rx Last Taken Unknown] pantoprazole 40 mg tablet,delayed release 40 mg PO DAILY GERD 03/22/23 [History Last Taken Unknown] simethicone 80 mg chewable tablet 80 mg PO TID Gas 03/22/23 [History Last Taken Unknown] food supplemt, lactose-reduced 0.08 gram-1.5 kcal/mL oral liquid 120 ml PO TIDCM #1 mL 04/06/23 [Rx Last Taken Unknown] gabapentin 100 mg capsule 100 mg PO TIDCM #1 cap 04/06/23 [Rx Last Taken Unknown] loperamide 2 mg capsule 2 mg PO Q4H PRN PRN Diarrhea #1 cap 04/06/23 [Rx Last Taken Unknown] metoprolol succinate 25 mg tablet,extended release 24 hr 25 mg PO DAILY #1 TAB 04/06/23 [Rx Last Taken Unknown] sennosides 8.6 mg tablet (senna) 2 tab PO DAILY PRN PRN Constipation #1 TAB 04/06/23 [Rx Last Taken Unknown] tramadol 50 mg tablet 50 mg PO Q6H PRN pain #20 tabs 05/28/23 [Rx Last Taken Unknown] carbidopa 25 mg-levodopa 100 mg tablet 1 tab PO TID 11/12/23 [History Last Taken Unknown] cyanocobalamin (vitamin B-12) 1,000 mcg capsule 1,000 mcg PO DAILY 11/12/23 [History Last Taken Unknown] duloxetine 20 mg capsule,delayed release 60 mg PO QHS 11/12/23 [History Last Taken Unknown] oxycodone 5 mg capsule 5 mg PO Q6H PRN pain 3 days #12 caps 11/12/23 [Rx Last Taken Unknown] polyethylene glycol 3350 17 gram/dose oral powder (Purelax) 17 g PO DAILY PRN PRN laxative effect 11/12/23 [History Last Taken Unknown] Allergy/AdvReac Type Severity Reaction Status Date / Time nitrofurantoin Allergy Hives Verified 03/21/23 15:03 [From Macrobid] hydrocodone [From Vicodin] AdvReac Vomiting Verified 03/21/23 15:03 morphine AdvReac Vomiting Verified 03/21/23 15:03 pregabalin [From Lyrica] AdvReac Vomiting Verified 03/21/23 15:03 Family History Mother Dementia Father No cardiac disease Surgical History H/O ventral hernia repair History of cataract surgery History of cholecystectomy Hx laparoscopic cholecystectomy Social History household members: family and other details: Her granddaughter Hardy lives with her and also Hardy is daughter, Roopa housing: house number of children: 3 pets and animals: No history of recent travel: No Smoking Status: Never smoker Electronic Cigarette Use: not used second hand exposure: No alcohol intake: never substance use type: does not use EXAM Physical Exam Const Vital Signs: 11/12/23 18:50 11/12/23 18:52 11/12/23 19:02 Temperature 97.2 F L Temperature Source Temporal Pulse Rate 99 93 Respiratory Rate 16 16 Respiratory Effort Normal Non-Labored Respiratory Depth Normal Respiratory Pattern Normal Blood Pressure 181/134 H 188/122 H Blood Pressure Mean 149 144 Pulse Ox 98 97 Oxygen Delivery Method Room Air Room Air Room Air MDM MDM MDM Narrative Medical decision making narrative: HISTORY OF PRESENT ILLNESS: 73-year-old female presents with back pain and right hip pain after a fall last night. She states Patient denies any saddle anesthesia, urinary retention, bowel or bladder incontinence, lower extremity weakness, fever or IV drug use, no recent spinal manipulation or surgery, no recent urinary catheterization. REVIEW OF SYSTEMS: Pertinent positives: Back pain, right hip pain Pertinent negatives: [] PHYSICAL EXAM: Nursing triage notes reviewed, Vital signs reviewed Primary Survey Airway: Intact Breathing: Bilateral breath sounds Circulation: Palpable bilateral femorals, Palpable bilateral radial, Palpable bilateral DP and Palpable bilateral PT Disability / Spine precautions GCS Score: Eye Openin Verbal Response: 5 Motor Response: 6 Secondary Survey Constitutional: Please see MDM Head: Atraumatic, Midface stable, NO jaw malocclusion, No Cephalohematoma, and No Lacerations noted Eye: Pupils equal round and reactive to light, Extraocular muscles intact and No periorbital ecchymosis or stepoff, no evidence of entrapment ENT: Oropharynx clear, no lacerations, no hemotympanum, no raccoon eyes or torres sign Cervical spine / Neck: No cervical spine bony tenderness, crepitance, or stepoff deformity Trachea midline Lungs: Clear to auscultation, No asymmetric rise and No crepitus, no flail chest Cardiac: Regular rate and rhythm and No murmurs Abdomen: Soft, Nontender and No rebound Pelvis: Pelvis stable to compression : No evidence of genital injury Back: No midline bony tenderness to thoracic/lumbar/sacral spines Neuro: At baseline, intact strength and sensation in bilateral upper and lower extremities. 2+ patellar reflexes bilaterally. Intact sensation L1-S1 dermatomal distributions. Intact 5/5 strength in hip flexion (T12-L3). Knee extension (L2-L4). Ankle dorsiflexion (L4-L5). Ankle plantar flexion (S1). Great toe extension (L5). 2+ patellar and Achilles DTRs. Extremities: NO gross Deformities Psych: Normal affect Nursing triage notes reviewed, Vital signs reviewed MEDICAL DECISION MAKING: Chief Complaint: Back pain, right hip pain External records reviewed: Imaging reviewed: CT scan of the lumbar spine from 2022 shows no acute fracture or dislocation Factors affecting care: Parkinson's disease, debility, GERD Social determinants of health: Elderly History obtained from others: Patient's daughter Consults: none [facility] Narrative: Patient was hemodynamically stable, afebrile, nontoxic-appearing. Primary secondary trauma surveys concerning for intracranial abnormality, traumatic abnormalities of the cervical, thoracic, lumbar spine as well as traumatic abnormalities of the right shoulder and right hip. Give the patient oral Percocet for additional pain relief. I considered the following differential diagnosis: Intracranial normality, axial skeleton injury, shoulder or hip injury. ALL IMAGES (IF OBTAINED) HAVE BEEN PERSONALLY REVIEWED AND INTERPRETED BY MYSELF. x-ray of the right hip and pelvis was read reviewed myself shows no obvious bony abnormality (radiologist commented on possible occult fracture however patient ambulated without difficulty making fracture much less likely) x-ray of the right shoulder was read reviewed by myself shows no evidence of fracture dislocation CT scan of the head, cervical spine, thoracic spine lumbar spine shows no evidence of acute bony abnormality. The synthesis of the patient's history, physical exam, labs images suggest no acute life-limiting etiology. The patient ambulated here was able to ambulate with her walker at her baseline. She is appropriate for discharge home. The patient and/or family, caregivers express understanding. The patient and/or family, caregivers agrees with the plan. Shared decision making: I will have a discussion with the patient and or visitors regarding risk/benefits of further testing or admission. They will be made aware of of the risk/benefits inherent in this decision they will be given the opportunity to voice understanding. Total critical care time today provided was at least 0 minutes. This excludes separately billable procedures. Critical care time (if documented) is secondary to the patient having high probability of clinically significant/life threatening deterioration in the patient's condition which required my urgent intervention. Impression: 1. Shoulder contusion 2. Contusion 3. Debility Dispo: Discharge home This note was generated with [employer] dictation software. It may contain incorrect words, spelling, and punctuation that were not noted in review of the chart prior to signing. Lab Data Labs: Laboratory Results - last 24 hr 11/12/23 19:29 WBC 6.2 RBC 4.63 Hgb 13.6 Hct 42.3 MCV 91.4 MCH 29.4 MCHC 32.2 RDW Std Deviation 45.5 H RDW Coeff of Brady 13.5 Plt Count 241 MPV 9.3 Immature Gran % (Auto) 0.300 Neut % (Auto) 62.4 Lymph % (Auto) 24.0 Archuleta % (Auto) 10.1 H Eos % (Auto) 2.4 Baso % (Auto) 0.8 Absolute Neuts (auto) 3.9 Absolute Lymphs (auto) 1.50 Nucleated RBC % 0 Sodium 143 Potassium 4.2 Chloride 111 H Carbon Dioxide 28.0 Anion Gap 4 L BUN 25 H Creatinine 0.93 Estim Creat Clear Calc 48.85 Est GFR (MDRD) Af Amer 75 Est GFR (MDRD) Non-Af 62 BUN/Creatinine Ratio 26.8 H Glucose 117 H Calcium 8.9 Radiography Diagnostic Testing: Clinical Impression(s) from Imaging Studies Brain CT 11/12/23 19:28 IMPRESSION: Mild atrophy and periventricular white matter ischemic change. No acute intracranial hemorrhage Electronically Signed: Odell Ribera MD at 20:37 EST Reading Location ID and State: [facility] / [place] Tel [phone], Service support , Cervical Spine CT 11/12/23 19:28 IMPRESSION: No evidence for acute fracture or subluxation. Moderate spondylosis. Electronically Signed: Odell Ribera MD at 20:41 EST Reading Location ID and State: [address] [place] [address] Tel [phone], Service support , Lumbar Spine CT 11/12/23 19:28 IMPRESSION: Severe scoliosis and degenerative change. No evidence for acute fracture. MRI would be helpful for further evaluation of disc disease if clinically warranted Electronically Signed: Odell Ribera MD at 20:46 EST Reading Location ID and State: [facility] / [place] Tel [phone], Service support , Shoulder X-Ray 11/12/23 19:28 IMPRESSION: Degenerative changes. No acute fracture or dislocation. Electronically Signed: Odell Ribera MD at 20:50 EST , Thoracic Spine CT 11/12/23 19:28 IMPRESSION: Severe kyphoscoliosis and degenerative changes. No acute fracture or other significant abnormality Electronically Signed: Odell Ribera MD at 20:43 EST Reading Location ID and State: [address] [place] [address] Tel , Service support , Hip/Pelvis X-Ray 11/12/23 20:14 IMPRESSION: Mild degenerative changes. No definitive evidence for acute fracture or dislocation however cannot definitively exclude mildly impacted fracture of the lateral femoral neck. CT recommended for more definitive evaluation if clinically warranted Electronically Signed: Odell Ribera MD at 20:49 EST Reading Location ID and State: [address] [place] [address] Tel , Service support , Discharge Plan Triage Chief Complaint: Fall ED Provider: Luis Jimenes Dx/Rx/DC Orders Clinical Impression: Contusion of lower back, Contusion of hip, Debility Instructions: ED Fall with Uncertain Cause, ED Hip Contusion Prescriptions: New oxycodone 5 mg capsule 5 mg PO Q6H PRN (Reason: pain) 3 Days Qty: 12 0RF No Action acetaminophen 500 MG tablet 500 mg PO Q8H PRN PRN (Reason: Pain 1-10 Or Fever) ondansetron 4 mg tablet,disintegrating 4 mg PO Q8H PRN PRN (Reason: Nausea) Qty: 10 0RF pantoprazole 40 mg Tablet,Delayed Release (Dr/Ec) 40 mg PO DAILY simethicone 80 mg Tablet,Chewable 80 mg PO TID sennosides [senna] 8.6 mg Tablet 2 tab PO DAILY PRN PRN (Reason: Constipation) Qty: 1 0RF loperamide 2 mg Capsule 2 mg PO Q4H PRN PRN (Reason: Diarrhea) Qty: 1 0RF gabapentin 100 mg Capsule 100 mg PO TIDCM Qty: 1 0RF metoprolol succinate 25 mg Tablet Extended Release 24 Hr 25 mg PO DAILY Qty: 1 0RF food supplemt, lactose-reduced 0.08 gram-1.5 kcal/mL Liquid 120 ml PO TIDCM Qty: 1 0RF carbidopa-levodopa 25-100 mg tablet 1 tab PO TID Patient Comments: TAKE 1 TABLET BY MOUTH THREE TIMES DAILY AT 7AM, 12PM & 5PM cyanocobalamin (vitamin B-12) 1,000 mcg capsule 1,000 mcg PO DAILY polyethylene glycol 3350 [Purelax] 17 gram/dose powder 17 g PO DAILY PRN PRN (Reason: laxative effect) Patient Comments: MIX AND DRINK 17G BY MOUTH TWICE DAILY duloxetine 20 mg Capsule,Delayed Release(Dr/Ec) 60 mg PO QHS tramadol 50 mg tablet 50 mg PO Q6H PRN (Reason: pain) Qty: 20 0RF Primary Care Provider: Sudarshan Galarza Referrals: Sudarshan Galarza MD [Primary Care Provider] - Activity Restrictions/Additional Instructions: Thank you for trusting us with your care today! Please take Tylenol (2 pills, 650 mg), ibuprofen (2 pills, 400 mg) every 6 hours as needed for pain and fever control. Please add oxycodone as prescribed if the above regimen does not control your pain. Please return to the emergency department if your symptoms change or worsen. Please follow with your primary care physician for further outpatient evaluation and management. Specifically inquire about home rehab or home health care. Please Disposition Disposition: Home, Self Care
--- NOTE | 2023-11-12 19:28 | CT_ITS ---
STUDY: CT THORACIC SPINE WITHOUT CONTRAST REASON FOR EXAM: Female, 73 years old. fall, mid back pain RADIATION DOSAGE (If Supplied By Facility): CTDIvol = ( 18.59 ) mGy, DLP = ( 1238.30 ) mGycm TECHNIQUE: The patient was scanned in a multi detector CT scanner. High resolution imaging was performed. Images were obtained from to . Sagittal and coronal images were reconstructed. Individualized dose optimization techniques were used for this CT. COMPARISON: March 21, 2023 FINDINGS: Severe kyphoscoliosis convex towards the left. No evidence for acute fracture or subluxation. No lytic or sclerotic bony lesions. . Multilevel disc space narrowing and endplate spurring. The soft tissue structures are unremarkable. No significant change since prior study CT/Spine Thoracic without Contras IMPRESSION: Severe kyphoscoliosis and degenerative changes. No acute fracture or other significant abnormality Electronically Signed: Odell Ribera MD at 20:43 EST ,
--- NOTE | 2023-11-12 19:28 | CT_ITS ---
STUDY: CT LUMBAR SPINE WITHOUT CONTRAST REASON FOR EXAM: Female, 73 years old. back pain RADIATION DOSAGE (If Supplied By Facility): CTDIvol = ( 19.84 ) mGy, DLP = ( 546.74 ) mGycm TECHNIQUE: The patient was scanned in a multi detector CT scanner. High resolution transaxial imaging was performed. Images were obtained from to . Sagittal and coronal images were reconstructed. Individualized dose optimization techniques were used for this CT. COMPARISON: March 21, 2023 FINDINGS: Mildly increased increased lumbar lordosis. There is severe dextro scoliosis. No acute fracture or subluxation.. No lytic or sclerotic bony lesions. Multilevel disc space narrowing and endplate spurring. No significant change since prior exam CT/Spine Lumbar without Contrast IMPRESSION: Severe scoliosis and degenerative change. No evidence for acute fracture. MRI would be helpful for further evaluation of disc disease if clinically warranted Electronically Signed: Odell Ribera MD at 20:46 EST Reading Location ID and State: [id number] [facility] Tel , Service support ,
--- NOTE | 2023-11-12 19:28 | CT_ITS ---
STUDY: CT CERVICAL SPINE WITHOUT CONTRAST REASON FOR EXAM: Female, 73 years old. fall, neck pain RADIATION DOSAGE (If Supplied By Facility): CTDIvol = ( 13.01 ) mGy, DLP = ( 254.25 ) mGycm TECHNIQUE: High resolution transaxial imaging was performed without contrast material. Sagittal and coronal images were reconstructed. Individualized dose optimization techniques were used for this CT. COMPARISON: March 21, 2023 FINDINGS: Normal craniovertebral junction. Normal anterior atlantoaxial articulation. Normal odontoid process. Straightening of normal lordotic curvature which may be due to muscle spasm or positioning artifact. Normal vertebral bodies and posterior osseous elements. C2-3: Normal endplates. Normal disc height and morphology. Normal central canal and intervertebral neuroforamina. C3-4: Normal endplates. Normal disc height and morphology. Normal central canal and intervertebral neuroforamina. C4-5: Narrowed disc space and mild endplate spurring.. Normal central canal and moderate bilateral neural foraminal encroachment. C5-6: Narrowed disc space and minor endplate spurring.. Normal central canal. Minor bilateral neural foraminal encroachment secondary to bony hypertrophy. C6-7: Narrowed disc space and small central osteophyte protrusion. Mild narrowing of the central canal... Normal bilateral intervertebral neural foramina C7-T1: Normal endplates. Normal disc height and morphology. Normal central canal and intervertebral neuroforamina. No significant change since prior exam CT/Spine Cervical without Contras IMPRESSION: No evidence for acute fracture or subluxation. Moderate spondylosis. Electronically Signed: Odell Ribera MD at 20:41 EST Reading Location ID and State: [address] [place] [address] Tel , Service support ,
--- NOTE | 2023-11-12 19:28 | RAD_ITS ---
STUDY: X-RAY - RIGHT SHOULDER REASON FOR EXAM: Female, 73 years old. pain after fall TECHNIQUE: 3 view(s) of the shoulder. COMPARISON: None. FINDINGS: Narrowed disc glenohumeral articulation with mild narrowing of subacromial space. Normal acromioclavicular joint. Normal acromion. Normal humeral head and visualized proximal humerus. Tiny periarticular calcification likely representing calcific tendinitis. Normal visualized pulmonary apex. RAD/Shoulder min 2 Views IMPRESSION: Degenerative changes. No acute fracture or dislocation. Electronically Signed: Odell Ribera MD at 20:50 EST ,
--- NOTE | 2023-11-12 19:28 | CT_ITS ---
STUDY: CT BRAIN WITHOUT CONTRAST REASON FOR EXAM: Female, 73 years old. head trauma RADIATION DOSAGE (If Supplied By Facility): CTDIvol = ( 44.99 ) mGy, DLP = ( 829.85 ) mGycm TECHNIQUE: Transaxial CT imaging of the brain was performed without administration of intravenous contrast material. Individualized dose optimization techniques were used for this CT. COMPARISON: November 15, 2022 FINDINGS: Normal soft tissue structures. Normal calvarium. Mild atrophy and periventricular white matter ischemic change. Normal basal ganglia and thalami. Normal brainstem. Normal cerebellum. There is no intracranial hemorrhage. There are no findings of an acute ischemic infarction. Normal visualized paranasal sinuses. Postsurgical changes of the orbits. CT/Brain/Head without Contrast IMPRESSION: Mild atrophy and periventricular white matter ischemic change. No acute intracranial hemorrhage Electronically Signed: Odell Ribera MD at 20:37 EST ,
[2023-11-12 19:46] LABS: Absolute Neutrophil Count 3.9 X10^3/uL (2.0-7.7); Basophil# 0.05 X10^3/uL; Basophil% 0.8 % (0-1); Eosinophil# 0.15 X10^3/uL; Eosinophils% 2.4 % (0-5); Hematocrit 42.3 % (37-47); Hemoglobin 13.6 g/dL (12.0-15.0); Mean Corp Hgb Conc 32.2 g/dL (32-36); Mean Corpuscular Hgb 29.4 pg (27.0-32.0); Mean Corpuscular Volume 91.4 fL (81-99); Mean Platelet Vol. 9.3 fl (6.2-12.0); Monocyte# 0.63 X10^3/uL; Monocyte% 10.1 % (0-10); NRBC Flagged by Analyzer 0 % (0-5); Neutrophil # 3.89 X10^3/uL (2.7-7.7); Neutrophil % 62.4 % (47-70); Platelet Count 241 K/mm3 (150-450); RBC Distribution Width CV 13.5 % (11.6-14.6); RBC Distribution Width SD 45.5 fl (35.1-43.9); Red Blood Count 4.63 M/mm3 (4.2-5.4); White Blood Count 6.2 K/mm3 (4.4-11.0)
--- OUTSIDE RECORDS SUMMARY | 2023-11-12 19:46 | XMS RPT_ITS | CCD ---
Author Name Unknown Address [address] [place] [address] Organization [facility] Care Team Providers Care Net Ui Developer Name Role Phone Sudarshan Mojica MD Primary Care Provider JOSEPHINE LOPES Admitting Unavailable JOSEPHINE LOPES Attending Unavailable SUDARSHAN MOJICA Primary Care Unavailable Sudarshan Mojica MD Primary Care Provider Sudarshan Mojica MD Primary Care Provider PROVIDER, UNKNOWN Attending Unavailable PROVIDER, UNKNOWN Admitting Unavailable SUDARSHAN MOJICA Primary Care Unavailable KARTHIKEYAN JOSEPH Admitting Unavailable SUDARSHAN MOJICA Primary Care Unavailable KARTHIKEYAN JOSEPH Attending Unavailable Rubio Escalante MD Unavailable [phone] Rubio Escalante MD Unavailable SUDARSHAN MOJICA Primary Care Unavailable RUBIO ESCALANTE Attending Unavailable SUDARSHAN MOJICA Primary Care Unavailable SUDARSHAN MOJICA Attending Unavailable SUDARSHAN MOJICA Primary Care Unavailable RACHEAL CLEMENS Attending Unavailable SUDARSHAN MOJICA Primary Care Unavailable SUDARSHAN MOJICA Primary Care Unavailable ARETHA ANN Attending Unavailable SUDARSHAN MOJICA Referring Unavailable SUDARSHAN MOJICA Primary Care Unavailable SUDARSHAN MOJICA Referring Unavailable SUDARSHAN MOJICA Primary Care Unavailable SUDARSHAN MOJICA Attending Unavailable SUDARSHAN MOJICA Primary Care Unavailable FARHANA LEOS Attending Unavailable KARTHIKEYAN JOSEPH Referring Unavailable YUNIOR, SUDARSHAN Tolbert Primary Care Unavailable KARTHIKEYAN JOSEPH Referring Unavailable SUDARSHAN MOJICA Primary Care Unavailable KARTHIKEYAN JOSEPH Attending Unavailable ARETHA ANN Referring Unavailable SUDARSHAN MOJIAC Primary Care Unavailable SUDARSHAN MOJICA Primary Care Unavailable SUDARSHAN MOJICA Attending Unavailable SUDARSHAN MOJICA Referring Unavailable SUDARSHAN MOJICA Primary Care Unavailable Allergies Allergy Classification Reported Allergen(s) Allergy Type Date of Onset Reaction(s) Facility (20 sources) Morphine; Translations: [MORPHINE] Drug Allergy 07-01-[address] [facility] Work Phone: (20 sources) NITROFURANTOIN, MACROCRYSTALS / Nitrofurantoin, Monohydrate; Translations: [NITROFURANTOIN MONOHYD/M-CRYST] Drug Allergy 04-12-[address] [facility] (20 sources) pregabalin; Translations: [PREGABALIN] Drug Allergy 11-24-2007 [facility] Medications Current Medications Medication Drug Class(es) Dates Sig (Normalized) Sig (Original) amitriptyline hydrochloride 10 mg oral tablet (6 sources) Tricyclic Antidepressant Start: 07-09-2023 End: 07-08-2024 take 1 tablet by mouth once daily at bedtime amitriptyline (ELAVIL) 10 mg tablet Indications: Fibromyalgia Take 1 tablet by mouth daily at bedtime. 90 tablet 3 07/09/2023 07/08/2024 Active Completed/Discontinued Medications Medication Drug Class(es) Dates Sig (Normalized) Sig (Original) acetaminophen 500 mg oral tablet (20 sources) take 1 tablet by mouth every eight hours as needed acetaminophen (TYLENOL) 500 mg tablet Take 500 mg by mouth every 8 hours as needed. 0 Active Problems Active Problems Problem Classification Problem Date Documented Da te Episodic/Chronic Abdominal hernia (4 sources) Unspecified abdominal hernia without obstruction or gangrene; Translations: [Hernia of unspecified site without mention of obstruction or gangrene] Onset: 3 Episodic Abdominal pain (1 source) Right upper quadrant pain; Translations: [Right upper quadrant pain] Episodic Adjustment disorders (20 sources) Reactive depression (situational); Translations: [Adjustment disorder with depressed mood] Onset: 7 09-10-2017 Chronic Administrative/social admission (2 sources) Education and/or schooling finding; Translations: [Problems related to education and literacy, unspecified] Episodic Anxiety disorders (4 sources) Anxiety; Translations: [Anxiety disorder, unspecified] Onset: 3 Chronic Chronic kidney disease (14 sources) Chronic kidney disease stage 3A ; Translations: [Stage 3a chronic kidney disease] Onset: 3 03-08-2023 Chronic Chronic kidney disease (1 source) Chronic kidney disease; Translations: [Stage 3a chronic kidney disease (HCC)] Onset: 3 Deficiency and other anemia (1 source) Anemia; Translations: [Anemia, unspecified] Episodic Diabetes mellitus without complication (1 source) Hyperglycemia; Translations: [Hyperglycemia, unspecified] 09-06-2023 Episodic Diseases of white blood cells (1 source) Leukocytosis; Translations: [Elevated white blood cell count, unspecified] Chronic E Codes: Fall (1 source) Fall; Translations: [Unspecified fall, subsequent encounter] Episodic Esophageal disorders (2 sources) Gastroesophageal reflux disease without esophagitis; Translations: [Gastro-esophageal reflux disease without esophagitis] Onset: 3 07-09-2023 Chronic Essential hypertension (20 sources) Benign essential hypertension; Translations: [Essential (primary) hypertension] Onset: 2 07-06-2012 Chronic Gastritis and duodenitis (20 sources) Chronic gastritis; Translations: [Unspecified chronic gastritis without bleeding] Onset: 9 06-05-2019 Chronic Genitourinary symptoms and ill-defined conditions (4 sources) Proteinuria; Translations: [Proteinuria, unspecified] Episodic Menopausal disorders (20 sources) Postmenopausal bleeding; Translations: [Postmenopausal bleeding] Onset: 2 Chronic Mycoses (1 source) Tinea unguium; Translations: [Pain due to onychomycosis of nail] Onset: 3 Episodic Other acquired deformities (20 sources) Scoliosis deformity of spine; Translations: [Scoliosis, unspecified] Onset: 7 03-23-2017 Chronic Other bone disease and musculoskeletal deformities (2 sources) Adolescent idiopathic scoliosis of lumbar spine; Translations: [Adolescent idiopathic scoliosis, lumbar region] Chronic Other bone disease and musculoskeletal deformities (1 source) Adolescent idiopathic scoliosis, lumbar region; Translations: [Adolescent idiopathic scoliosis of lumbar region] Onset: 2 Chronic Other connective tissue disease (20 sources) Fibromyalgia; Translations: [Fibromyalgia] Onset: 2 Episodic Other connective tissue disease (2 sources) Muscle pain; Translations: [Myalgia, unspecified site] Episodic Other connective tissue disease (1 source) Pain in unspecified limb; Translations: [Pain due to onychomycosis of nail] Onset: 3 Episodic Other diseases of kidney and ureters (1 source) Renal impairment; Translations: [Disorder of kidney and ureter, unspecified] Episodic Other gastrointestinal disorders (20 sources) Irritable bowel syndrome; Translations: [Mixed irritable bowel syndrome] Onset: 7 04-19-2017 Chronic Other gastrointestinal disorders (1 source) Swollen abdomen; Translations: [Abdominal distension (gaseous)] Episodic Other hereditary and degenerative nervous system conditions (20 sources) Resting tremor; Translations: [Other specified forms of tremor] Onset: 0 02-26-2020 Chronic Other hereditary and degenerative nervous system conditions (1 source) Impaired cognition; Translations: [Mild cognitive impairment, so stated] 08-05-2023 Chronic Other nervous system disorders (2 sources) Chronic pain; Translations: [Other chronic pain] Chronic Other nervous system disorders (1 source) Other chronic pain; Translations: [Chronic left SI joint pain] Onset: 7 Chronic Other screening for suspected conditions (not mental disorders or infectious disease) (1 source) Endometrium thickened; Translations: [Abnormal findings on diagnostic imaging of other specified body structures] Chronic Other screening for suspected conditions (not mental disorders or infectious disease) (2 sources) Patient encounter status; Translations: [Encounter for other screening for malignant neoplasm of breast] Episodic Parkinson`s disease (20 sources) Parkinson's disease; Translations: [Parkinson's disease] Onset: 1 05-31-2021 Chronic Parkinson`s disease (1 source) Parkinson`s disease; Translations: [Parkinson's disease without dyskinesia or fluctuating manifestations] Onset: 1 Residual codes; unclassified (2 sources) Postmenopausal state; Translations: [Asymptomatic menopausal state] Episodic Residual codes; unclassified (2 sources) History of hernia repair; Translations: [Other specified postprocedural states] Episodic Residual codes; unclassified (1 source) Edema of lower extremity; Translations: [Localized edema] Episodic Residual codes; unclassified (1 source) Treatment not available; Translations: [Procedure and treatment not carried out for other reasons] 06-16-2023 Episodic Spondylosis; intervertebral disc disorders; other back problems (20 sources) Degeneration of lumbar intervertebral disc; Translations: [Other intervertebral disc degeneration, lumbar region] Onset: 9 06-05-2019 Chronic Past or Other Problems Problem Classification Problem Date Documented Da te Episodic/Chronic Calculus of urinary tract (20 sources) Kidney stone; Translations: [Calculus of kidney] Onset: 05-05-2017 05-05-2017 Episodic Immunizations and screening for infectious disease (3 sources) Viral screening status; Translations: [Encounter for screening for other viral diseases] Onset: 07-09-2023 Episodic Malaise and fatigue (2 sources) Malaise; Translations: [Other malaise] Onset: 01-05-2023 Episodic Nausea and vomiting (5 sources) Nausea; Translations: [Nausea] Onset: 01-05-2023 Episodic Nutritional deficiencies (2 sources) Cobalamin deficiency; Translations: [Deficiency of other specified B group vitamins] Onset: 07-09-2023 07-09-2023 Episodic Other and unspecified benign neoplasm (20 sources) Benign neoplasm of rectum and anal canal; Translations: [Benign neoplasm of rectum] Onset: 11-18-2012 11-18-2012 Episodic Other connective tissue disease (1 source) Fibromyalgia; Translations: [Fibromyalgia] Onset: 07-20-2022 Episodic Other female genital disorders (20 sources) Stenosis of cervix; Translations: [Stricture and stenosis of cervix uteri] Onset: 05-15-2022 Episodic Other gastrointestinal disorders (1 source) Abdominal distension (gaseous); Translations: [Abdominal distention] Onset: 01-05-2023 Episodic Other gastrointestinal disorders (1 source) Personal history of other diseases of the digestive system; Translations: [S/P laparoscopic hernia repair] Onset: 12-09-2022 Episodic Residual codes; unclassified (1 source) Localized edema; Translations: [Edema of leg] Onset: 01-05-2023 Episodic Residual codes; unclassified (1 source) Other specified postprocedural states; Translations: [S/P laparoscopic hernia repair] Onset: 12-09-2022 Episodic Spondylosis; intervertebral disc disorders; other back problems (20 sources) Chronic sacroiliac joint pain; Translations: [Sacrococcygeal disorders, not elsewhere classified] Onset: 03-23-2017 03-23-2017 Episodic Viral infection (2 sources) Herpes zoster without complication; Translations: [Zoster without complications] Onset: 07-09-2023 07-09-2023 Episodic Results Test Name Value Interpretation Reference Range Facil ity Vital Signs Date Time Vital Sign Value Performing Clinician Nikolai newman 08-05-2023 08:55-0400 Body height 157.5 cm Rubio Escalante MD Work Phone: [facility] 08-05-2023 08:55-0400 Body weight 62.64 kg Rubio Escalante MD Work Phone: [facility] 08-05-2023 08:55-0400 SaO2% (BldA) [Mass fraction] 99 % Rubio Escalante MD Work Phone: [facility] 07-09-2023 16:14-0400 Body weight 62.51 kg Sudarshan Mojica MD Work Phone: [facility] 07-09-2023 16:14-0400 Diastolic blood pressure 74 mm[Hg] Sudarshan Mojica MD Work Phone: [facility] 07-09-2023 16:14-0400 Heart rate 86 /min Sudarshan Mojica MD Work Phone: [facility] 07-09-2023 16:14-0400 Respiratory rate 16 /min Sudarshan Mojica MD Work Phone: [facility] 07-09-2023 16:14-0400 SaO2% (BldA) [Mass fraction] 97 % Sudarshan Mojica MD Work Phone: [facility] 07-09-2023 16:14-0400 Systolic blood pressure 140 mm[Hg] Sudarshan Mojica MD Work Phone: [facility] 01-05-2023 14:04-0400 Body height 160 cm Sudarshan Mojica MD Work Phone: [facility] 01-05-2023 14:04-0400 Body temperature 98.6 [degF] Sudarshan Mojica MD Work Phone: [facility] 01-05-2023 14:04-0400 Body weight 64.86 kg Sudarshan Mojica MD Work Phone: [facility] 01-05-2023 14:04-0400 Diastolic blood pressure 72 mm[Hg] Sudarshan Mojica MD Work Phone: [facility] 01-05-2023 14:04-0400 Heart rate 80 /min Sudarshan Mojica MD Work Phone: [facility] 01-05-2023 14:04-0400 SaO2% (BldA) [Mass fraction] 97 % Sudarshan Mojica MD Work Phone: [facility] 01-05-2023 14:04-0400 Systolic blood pressure 146 mm[Hg] Sudarshan Mojica MD Work Phone: [facility] 12-09-2022 09:13-0500 Body height 160 cm Farhana Juanpablo PA-C Work Phone: [facility] 12-09-2022 09:13-0500 Body temperature 98.6 [degF] Farhana Ramseur PA-C Work Phone: [facility] 12-09-2022 09:13-0500 Body weight 58.97 kg Farhana Ramseur PA-C Work Phone: [facility] 12-09-2022 09:13-0500 Diastolic blood pressure 88 mm[Hg] Farhana Ramseur PA-C Work Phone: [facility] 12-09-2022 09:13-0500 Heart rate 85 /min Farhana Juanpablo PA-C Work Phone: [facility] 12-09-2022 09:13-0500 SaO2% (BldA) [Mass fraction] 97 % Farhana Juanpablo PA-C Work Phone: [facility] 12-09-2022 09:13-0500 Systolic blood pressure 138 mm[Hg] Farhana Juanpablo PA-C Work Phone: [facility] 10-26-2022 16:13-0500 Body weight 58.97 kg Karthikeyan Joseph MD Work Phone: [facility] 09-17-2022 11:07-0500 Body weight 58.51 kg Sudarshan Mojica MD Work Phone: [facility] 09-17-2022 11:07-0500 Diastolic blood pressure 72 mm[Hg] Sudarshan Mojica MD Work Phone: [facility] 09-17-2022 11:07-0500 Heart rate 88 /min Sudarshan Mojica MD Work Phone: [facility] 09-17-2022 11:07-0500 SaO2% (BldA) [Mass fraction] 94 % Sudarshan Mojica MD Work Phone: [facility] 09-17-2022 11:07-0500 Systolic blood pressure 122 mm[Hg] Sudarshan Mojica MD Work Phone: [facility] 08-27-2022 15:32-0500 Heart rate 82 /min Racheal Clemens CAFE HELPER.EMPLOYMENT LAW ATTORNEY Work Phone: [facility] 08-27-2022 15:32-0500 SaO2% (BldA) [Mass fraction] 100 % Racheal Clemens CAFE HELPER.EMPLOYMENT LAW ATTORNEY Work Phone: [facility] 07-31-2022 16:14-0400 Body temperature 98.29 [degF] Odell Nanlealyssa CAFE HELPER.EMPLOYMENT LAW ATTORNEY Work Phone: [facility] 07-31-2022 16:14-0400 Body weight 58.97 kg Odell Pendromy CAFE HELPER.EMPLOYMENT LAW ATT[employer]NEY Work Phone: [facility] 07-31-2022 16:14-0400 Diastolic blood pressure 86 mm[Hg] Odell Pendlebury CAFE HELPER.EMPLOYMENT LAW ATT[employer]NEY Work Phone: [facility] 07-31-2022 16:14-0400 Heart rate 93 /min Odell Lynnebury CAFE HELPER.EMPLOYMENT LAW ATTORNEY Work Phone: [facility] 07-31-2022 16:14-0400 Respiratory rate 20 /min Odell Pendlealyssa CAFE HELPER.EMPLOYMENT LAW ATTORNEY Work Phone: [facility] 07-31-2022 16:14-0400 SaO2% (BldA) [Mass fraction] 98 % Odell Baron CAFE HELPER.EMPLOYMENT LAW ATTORNEY Work Phone: [facility] 07-31-2022 16:14-0400 Systolic blood pressure 128 mm[Hg] Odell Pendlebury CAFE HELPER.EMPLOYMENT LAW ATTORNEY Work Phone: [facility] 07-24-2022 18:15-0400 Body temperature 97.9 [degF] Josephine Lopes MD Work Phone: [facility] 07-24-2022 18:15-0400 Diastolic blood pressure 67 mm[Hg] Josephine Lopes MD Work Phone: [facility] 07-24-2022 18:15-0400 Heart rate 79 /min Josephine Lopes MD Work Phone: [facility] 07-24-2022 18:15-0400 Respiratory rate 12 /min Josephine Lopes MD Work Phone: [facility] 07-24-2022 18:15-0400 SaO2% (BldA) [Mass fraction] 96 % Josephine Lopes MD Work Phone: [facility] 07-24-2022 18:15-0400 Systolic blood pressure 135 mm[Hg] Josephine Lopes MD Work Phone: [facility] 07-17-2022 16:02-0400 Body height 160 cm Pacc 1 Work Phone: [facility] 07-17-2022 16:02-0400 Body temperature 97.59 [degF] Pacc 1 Work Phone: [facility] 07-17-2022 16:02-0400 Body weight 58.97 kg Pacc 1 Work Phone: [facility] 07-17-2022 16:02-0400 Diastolic blood pressure 84 mm[Hg] Pacc 1 Work Phone: [facility] 07-17-2022 16:02-0400 Heart rate 98 /min Pacc 1 Work Phone: [facility] 07-17-2022 16:02-0400 Respiratory rate 14 /min Pacc 1 Work Phone: [facility] 07-17-2022 16:02-0400 SaO2% (BldA) [Mass fraction] 90 % Pacc 1 Work Phone: [facility] 07-17-2022 16:02-0400 Systolic blood pressure 132 mm[Hg] [facility] 1 Work Phone: [facility] 05-13-2022 12:46-0400 Body weight 54.88 kg Josephine Lopes MD Work Phone: [facility] 05-13-2022 12:46-0400 Diastolic blood pressure 80 mm[Hg] Josephine Lopes MD Work Phone: [facility] 05-13-2022 12:46-0400 Systolic blood pressure 122 mm[Hg] Josephine Lopes MD Work Phone: [facility] 03-20-2022 08:54-0400 Body height 160 cm Karthikeyan Joseph MD Work Phone: [facility] 03-20-2022 08:54-0400 Body temperature 97.81 [degF] Karthikeyan Joseph MD Work Phone: [facility] 03-20-2022 08:54-0400 Body weight 55.52 kg Karthikeyan Joseph MD Work Phone: [facility] 03-20-2022 08:54-0400 Diastolic blood pressure 80 mm[Hg] Karthikeyan Joseph MD Work Phone: [facility] 03-20-2022 08:54-0400 Heart rate 103 /min Karthikeyan Joseph MD Work Phone: [facility] 03-20-2022 08:54-0400 SaO2% (BldA) [Mass fraction] 100 % Karthikeyan Joseph MD Work Phone: [facility] 03-20-2022 08:54-0400 Systolic blood pressure 138 mm[Hg] Karthikeyan Joseph MD Work Phone: [facility] 03-18-2022 08:40-0400 Diastolic blood pressure 90 mm[Hg] Sudarshan Mojica MD Work Phone: [facility] 03-18-2022 08:40-0400 Systolic blood pressure 124 mm[Hg] Sudarshan Mojica MD Work Phone: [facility] 03-18-2022 08:13-0400 Body weight 55.34 kg Sudarshan Mojica MD Work Phone: [facility] 03-18-2022 08:13-0400 Heart rate 84 /min Sudarshan Mojica MD Work Phone: [facility] 03-18-2022 08:13-0400 Respiratory rate 16 /min Sudarshan Mojica MD Work Phone: [facility] Encounters Encounter Date Encounter Type Care Provider Facility Start: 10-16-2023 End: 10-17-2023 ambulatory SUDARSHAN MOJICA Facility:[facility] Start: 09-18-2023 Refill Sudarshan Mojica MD Work Phone: [facility] Procedures Date Procedure Procedure Detail Performing Clinician Start: 07-09-2023 INFLUENZA VACCINE, P RSV FREE, AGE 65+ YR, HIGH DOSE, QUADRIVALENT (FLUZONE HIGH-DOSE) Sudarshan Mojica MD Work Phone: Start: 09-17-2022 Lipid 1996 panel - S shereen or Plasma Sudarshan Mojica MD Work Phone: Start: 07-31-2022 Urnls dip stick/tabl et rgnt auto w/o microscopy Kailey Brown CAFE HELPER.[employer]OYMENT [employer] ATT[employer]NEY Work Phone: Start: 07-17-2022 Radiologic exam ches t 2 views Tia Sarmiento CAFE HELPER.EMPLOYMENT LAW ATTORNEY Work Phone: Start: 04-06-2022 Us transvaginal Josephine Lopes MD Work Phone: Start: 03-30-2022 Us transvaginal Josephine Lopes MD Work Phone: Start: 03-25-2022 End: 03-25-2022 Screening mammography bi 2-view breast inc cad Sudarshan Mojica MD Work Phone: Start: 03-25-2022 Dxa bone density michael dy 1/> sites axial skel Sudarshan Mojica MD Work Phone: Start: 05-11-2017 Colonoscopy Stanton Tam MD Work Phone: Start: 07-19-2013 Mammography Stanton Tam MD Work Phone: Plan of Treatment Date Care Activity Detail Author Start: 06-16-[address] [facility] Start: 09-17-2027 Lipid 1996 panel - S shereen or Plasma Lipid Screening [facility] Start: 09-17-2027 LIPID SCREEN L[address]ID SCREEN [facility] Start: 05-11-[address] [facility] Start: 05-11-2027 COLORECTAL CANCER SCREENING COLORECTAL CANCER SCREENING [facility] Start: 03-18-2027 L[address] S[address]EN L[address]ID SCREEN [facility] Start: 09-04-2026 Diabetes Screening Diabetes Screenin g [facility] Start: 05-31-2026 [address] L[address]ID SCREEN [facility] Start: 01-05-2026 DIABETES SCREEN DIABETES SCREEN [facility] Start: 01-05-2026 Diabetes Screening Diabetes Screenin g [facility] Start: 09-17-2025 DIABETES SCREEN DIABETES SCREEN [facility] Start: 07-17-2025 DIABETES SCREEN DIABETES SCREEN [facility] Start: 03-18-2025 DIABETES SCREEN DIABETES SCREEN [facility] Start: 09-04-2024 Serum Creatinine Serum Creatinine Cl [facility] Start: 07-09-2024 Annual PCP Team Ring Cutter Lathe Operator ada Disease Visit Annual PCP Team Chronic Disease Visit [facility] Start: 07-09-2024 Covid-19 Vaccine (#1) Covid-19 Vacci ne (#1) [facility] Immunizations Immunization Date Immunization Notes Care Provider Fa cility 07-09-2023 influenza (HD-IIV4) vaccine, age 65+ yr, high dose, quadrivalent, PF (FLUZONE HIGH-DOSE) Sudarshan Mojica MD Work Phone: [facility] 07-01-2020 influenza, high-dose , quadrivalent vaccine (FLUZONE HIGH DOSE QUADRIVALENT) Stanton Tam MD Work Phone: [facility] 09-17-2019 influenza, seasonal, injectable, preservative free Stanton Tam MD Work Phone: [facility] 09-11-2019 influenza, high dose seasonal, preservative-free Stanton Tam MD Work Phone: [facility] 08-17-2019 influenza, high dose seasonal, preservative-free Stanton Tam MD Work Phone: [facility] 08-30-2018 influenza, high dose seasonal, preservative-free Stanton Tam MD Work Phone: [facility] Work Phone: 07-30-2018 influenza, high dose seasonal, preservative-free Stanton Tam MD Work Phone: [facility] 06-16-2018 tetanus toxoid, redu dany diphtheria toxoid, and acellular pertussis vaccine, adsorbed Stanton Tam MD Work Phone: [facility] 09-27-2017 influenza, seasonal, injectable Stanton Tam MD Work Phone: [facility] 03-23-2017 pneumococcal conjuga te vaccine, 13 valent Stanton Tam MD Work Phone: [facility] 09-04-2016 influenza, high dose seasonal, preservative-free Stanton Tam MD Work Phone: [facility] Work Phone: 08-01-2015 pneumococcal conjuga te vaccine, 13 valent Stanton Tam MD Work Phone: [facility] 07-26-2015 influenza virus vacc ine, whole virus Stanton Tam MD Work Phone: [facility] 10-03-2014 influenza, seasonal, injectable Stnaton Tam MD Work Phone: [facility] Work Phone: 09-18-2013 influenza virus vacc ine, unspecified formulation Stanton Tam MD Work Phone: [facility] 07-19-2013 zoster vaccine, live Stanton larson MD Work Phone: [facility] 07-14-2013 pneumococcal polysaccharide vaccine, 23 valent Stanton Tam MD Work Phone: [facility] 09-22-2012 influenza virus vacc ine, unspecified formulation Stanton Tam MD Work Phone: [facility] 05-03-2010 tetanus toxoid, redu dany diphtheria toxoid, and acellular pertussis vaccine, adsorbed Stanton Tam MD Work Phone: [facility] Work Phone: 08-30-2006 influenza virus vacc ine, unspecified formulation Stanton Tam MD Work Phone: [facility] Work Phone: Payers Date Payer Category Payer Medicare [id number] 2016 Unknown IAN VAZQUEZ DICARE SUPPLEMENT [id number] 2016-Present [phone] [id number] Indemnity [id number] 2016 Unknown IAN VAZQUEZ DICARE SUPPLEMENT [id number] 2016-Present [phone] [address] [place] [address] Indemnity [id number] 2008 Medicare MEDICARE MEDICAR E A AND B [id number] 2008-Present [phone] [place] [address] Medicare [id number] 2008 Medicare MEDICARE MEDICAR E A AND B [id number] 2008-Present [phone] [place] [address] Medicare [id number] 2008 Medicare [id number] Social History Date Type Detail Facility Start: 09-15-2011 Tobacco smoking stat us UTIS Never smoked tobacco [facility] Start: 01-20-2022 End: 08-05-2023 Alcohol intake Current non-drinker of alcohol (finding) [facility] Start: 1950 Sex Assigned At Not on file [facility] System Start: 01-13-2022 End: 09-17-2022 Exposure to SARS-CoV-2 (event) Not sure [facility] Start: 03-14-2022 End: 03-24-2022 Exposure to SARS-CoV-2 (event) Unable to assess [facility] Work Phone: Start: 09-15-2011 Tobacco use and exposure Smoke less tobacco non-user [facility] Start: 06-22-2022 End: 09-10-2022 History SDOH Alcohol Std Drinks 0 [facility] Start: 06-22-2022 End: 09-10-2022 History SDOH Alcohol Binge 1 [facility] Start: 06-22-2022 End: 09-10-2022 History SDOH Social Connections Phone 5 [facility] Start: 06-22-2022 End: 09-10-2022 History SDOH Social Connections Membership 2 [facility] Start: 06-22-2022 History SDOH Physica l Activity MPS 6 [facility] Start: 09-10-2022 History SDOH Physica l Activity DPW 3 [facility] Start: 09-10-2022 History SDOH Stress 4 [facility] Start: 09-10-2022 End: 03-08-2023 History of Social function [facility] Start: 09-10-2022 End: 03-08-2023 Social connection and isolation panel [facility] Do you belong to any clubs or organizations such as yarsani groups, unions, fraternal or athletic groups, or school groups? No [facility] Are you now , , , , never or living with a partner? [facility] How often to you hav e a drink containing alcohol? Never [facility] How many standard dr inks containing alcohol do you have on a typical day? Patient does not drink [facility] Do you feel stress - tense, restless, nervous, or anxious, or unable to sleep at night because your mind is troubled all the time - these days [OSQ] Rather much [facility] (I/We) worried cathy er (my/our) food would run out before (I/we) got money to buy more. Never true [facility] Medical Equipment Procedure Code Equipment Code Equipment Origin al Text Equipment Identifier Dates Mesh Progrip Keely Pet [id number] Surgical Self Fixate Flat Sheet Hernia Sterile - [id number] Start: 12-02-2022 Clinical Notes 03-18-2020 to 10-16-2023 Telephone Encounter - Bro Dixon - 09/20/2023 10:19 AM ESTTelephone Encounter - Corrine Coy Ma - 09/06/2023 1:14 PM ESTTelephone Encounter - Sudarshan Mojica MD - 09/06/2023 12:18 PM EST Note Date & Type Note Facility 10-16-2023 Note HNO ID: [id number] Author: Sudarshan Mojica MD Service: ? Author Type: Physician Type: Progress Notes Filed: 10/16/2023 10:21 AM Note Text: Patient presents with: Follow Up HPI: Patient presents today for office visit for follow up. NEURO:still seeing neurology. They are titrating meds. Follows with pain management. HYPERTENSION:no chest pain or shortness of breath. No dizziness. NEPHRO:following labs. B12:still on b12 PSYCH: more animated today. In very good mood. Appetite is good. No falls. Just granny shuffles . Has issues with chronic foot pain and nail issues. Had been following with podiatry. See previous ov: In March had hernia surgery. After that went back into the hospital with right sided stomach pain and fever. They initially admitted her for a sepsis work up and then she developed a rash that was diagnosed as shingles. They then cleared her to go to [facility] for recovery. At [facility] for rehab. Discharged from there in May. Has been very anxious. Reviewed all the current medications. She had her anxiety med and bp meds changed. Still seeing pain management. She is seeing a new neurologist next month. She is currently off all parkinson's meds. She apparently was hallucinating until they were stopped. Appetite is fair. She currently is living with family Has occasional loose stools. Was also placed on b12 No chest pain or shortness of breath. No recent falls. MEDICATIONS: Current Outpatient Medications Medication Sig gabapentin (NEURONTIN) 100 mg capsule Take 1 capsule by mouth three times a day for 180 days. ondansetron orally disintegrating (ZOFRAN ODT) 4 mg disintegrating tablet Take 1 tablet by mouth every 6 hours as needed for nausea/vomiting. metoprolol succinate ER (TOPROL XL) 25 mg 24 hr tablet Take 1 tablet by mouth every afternoon. carbidopa-levodopa (SINEMET 25-100) 25-100 mg per tablet Take 1 tablet by mouth three times daily at 7am, 12pm AND 5pm DULoxetine (CYMBALTA) 60 mg capsule Take 1 capsule by mouth once daily. traMADol (ULTRAM) 50 mg tablet Take 50 mg by mouth every 6 hours as needed. pantoprazole DR (PROTONIX) 40 mg tablet Take 1 tablet by mouth once daily. gabapentin (NEURONTIN) 100 mg capsule Take 1 capsule by mouth daily at bedtime for 30 days. ondansetron (ZOFRAN) 4 mg tablet Take 1 tablet by mouth every 8 hours as needed for nausea/vomiting. amitriptyline (ELAVIL) 10 mg tablet Take 1 tablet by mouth daily at bedtime. cyanocobalamin (VITAMIN B-12) 1,000 mcg tab Take 1 tablet by mouth once daily. simethicone, chewable (MYLICON) 80 mg chewable tablet Take 80 mg by mouth three times daily. (Patient not taking: Reported on 08/04/2023) polyethylene glycol 3350 (MIRALAX, GLYCOLAX) 17 gram/dose powder PLACE (ONE SCOOP) IN 8 OZ OF WATER DAILY UNTIL STOOLS ARE REGULAR UP TO TWO(2) WEEKS acetaminophen (TYLENOL) 500 mg tablet Take 500 mg by mouth every 8 hours as needed. No current facility-administered medications for this visit. ALLERGIES: ALLERGIES Allergen Reactions Lyrica [Pregabalin] dizzy,sick to stomach Macrobid [Nitrofura* Hives Morphine Vomiting PAST MEDICAL HISTORY Diagnosis Date Chronic back pain pinched nerves in back Chronic left SI joint pain 03/23/2017 Essential hypertension, benign 07/06/2012 Fibromyalgia Hyperlipidemia Irritable bowel syndrome with both constipation and diarrhea 04/19/2017 Lumbar radiculopathy 04/12/2017 Renal calculus, right 04/19/2017 Scoliosis of thoracolumbar spine 03/23/2017 Situational depression 09/10/2017 Thoracic radiculopathy due to degenerative joint disease of spine 12/01/2013 PAST SURGICAL HISTORY Procedure Laterality Date COLONOSCOPY W/BIOPSY SINGLE/MULTIPLE 11/18/2012 COLONOSCOPY W/BIOPSY SINGLE/MULTIPLE 05/11/2017 Normal colonoscopy, normal terminal ileum-unremarkable biopsies D+C 01/16/2021 Hysteroscopy, biopsy urethral caruncle EGD 10/09/2020 EGD TRANSORAL BIOPSY SINGLE/MULTIPLE 05/11/2017 Mild reflux otherwise normal-unremarkable biopsies ESOPHAGOGASTRODUODENOSCOPY TRANSORAL DIAGNOSTIC 07/05/2018 EGD INGUINAL HERNIA REPAIR HX Left 12/02/2022 laporocopic left inguinal repair LAPAROSCOPY SURG CHOLECYSTECTOMY 12/01/2012 with ventral hernia repair PAST SURGICAL HISTORY OF N/A 07/24/2022 Hysteroscopy with DANDC and Examination under anesthesia FAMILY HISTORY Problem Relation Age of Onset Ischemic Heart Disease Father FATHER SIDE OF FAMILY HISTORY OF HEART ATTACKS Social History Tobacco Use Smoking status: Never Smokeless tobacco: Never Vaping Use Vaping Use: Never used Substance Use Topics Alcohol use: No Drug use: No Reviewed current medications, allergies, past medical history, surgical history, family history and social history today. REVIEW OF SYSTEMS All other reviewed and negative other than HPI. HEALTH MAINTENANCE: Reviewed health maintenance issues today and recommended (more content not included)... [facility] 09-20-2023 Miscellaneous Notes Patient phones requesting refills as follows: Requested Prescriptions Pending Prescriptions Disp Refills ondansetron orally disintegrating (ZOFRAN ODT) 4 mg disintegrating tablet 20 tablet 0 Sig: Take 1 tablet by mouth every 6 hours as needed for nausea/vomiting. metoprolol succinate ER (TOPROL XL) 25 mg 24 hr tablet 90 tablet 3 Sig: Take 1 tablet by mouth every afternoon. ondansetron (ZOFRAN) 4 mg tablet 20 tablet 5 Sig: Take 1 tablet by mouth every 8 hours as needed for nausea/vomiting. [facility] 07/09/23 NOV 10/16/23 Please review and advise. Bro Dixon documented in this encounter [facility] 09-06-2023 Miscellaneous Notes A1c added on, will wait for results. Labs are overall ok. Sugars are very mildly up. Recommend a1c. documented in this encounter [facility] 08-10-2023 Miscellaneous Notes Sent. [facility] website checked and validated. All prescriptions have been APPROPRIATELY filled. No suspicious activity was identified. 08/10/2023 by Jasbir Burton APRN.EMPLOYMENT LAW ATTORNEY The following approved medication requests have been transmitted electronically. Requested Prescriptions Signed Prescriptions Disp Refills gabapentin (NEURONTIN) 100 mg capsule 90 capsule 0 Sig: Take 1 capsule by mouth three times a day for 30 days. Authorizing Provider: JASBIR BURTON APRN.CNP Patient has been identified by name and date of : Yes Requested Prescriptions Pending Prescriptions Disp Refills gabapentin (NEURONTIN) 100 mg capsule 90 capsule 0 Sig: Take 1 capsule by mouth three times a day for 30 days. [facility] 07/09/23 NOV 10/16/23 RX INSTRUCTIONS: Patient aware RX will be sent to pharmacy. No need to notify patient. Corrine Coy Ma documented in this encounter [facility] 08-07-2023 Miscellaneous Notes Left VM for Terra requesting call back for confirmation documented in this encounter [facility] 08-05-2023 Note HNO ID: [id number] Author: Rubio Escalante MD Service: ? Author Type: Physician Type: Progress Notes Filed: 08/05/2023 9:51 AM Note Text: [facility] - NEW PATIENT EVALUATION Primary Care Provider: Sudarshan Mojica MD [id number] [facility] [id number] Dear Sudarshan Mojica MD: I had the pleasure of evaluating Ms. Orantes in our clinic today. As you know she is a 73 year old right-handed female who presents for evaluation of Parkinson's disease since 2019. She is seen with a daughter. Subjective HISTORY OF PRESENT ILLNESS: Initial HPI Her symptoms started with right hand tremors. She saw a Dr. Ohara in [place] and was placed on medication. She did have hallucinations at one point and medications were stopped. She was seeing stuffed animals that were moving. It looks like she was on amantadine. She also has neck pain and is on Elavil. Sometimes she has pain in her stomach too. She lives at home with her granddaughter. She may freeze with walking. Movement Disorders Medications Schedule - as of the start of the visit: Medications None Questionnaires In addition, the following activities of daily living that may be affected by tremors were evaluated: Speaking: Not affected Feeding: Affected (mild) Bringing Liquids to Mouth: Affected (mild) Hygiene: Affected (moderate) Dressing: Affected (marked) Writing: Affected (moderate) Working: Affected (marked) Number of falls in the Last Month: 0 In addition, the following areas that may be affected by abnormal involuntary movements were evaluated: Daily activities Difficulties with eatin (none) Difficulties in dressing: Yes (slight) Difficulties with hygiene activities: Yes (mild) Difficulties with handwritin (none) Difficulties with doing hobbies and other activities: Yes (mild) Difficulties turning in bed: 0 (none) Difficulties getting out of bed, car or chair: Yes (mild) Tremors/Gait/Balance Shaking or tremors: Yes (mild) Walking and balance problems: Yes (moderate) Number of falls in the Last Month: 0 Gait freezing: Yes (severe) Autonomic/Pain Lightheadeness on standing: Yes (mild) Urinary problems: Yes (severe) Constipation problems: Yes (moderate) Pain and other sensations: Yes (moderate) Speech/Swallowing Speech problems: 0 (none) Droolin (none) Chewing and swallowing problems: 0 (none) Sleep/Fatigue Sleep problems: Yes (moderate) Daytime sleepiness: Yes (moderate) Fatigue: Yes (moderate) Mood/Behavior Depression: PHQ-9 Score: 9 usually representing mild (5-9) depression. Anxiety: CASTRO-7 Total Score: 16 usually representing severe (>15) anxiety. Finally, the following table shows the patient's overall global physical and mental health using the PROMIS scale: PROMIS-10 Flowsheet Row Office Visit from 06/11/2023 in Pain Management Office Visit from 09/17/2022 in [facility] Medicine [place] Global Physical Health T Score 34.9 29.6 Global Mental Health T Score 53.3 45.8 0-10 Standard Pain Scale 3 2 *PROMIS-10 scoring scale: mean = 50, over 50 is above average, under 50 is below average In addition, the following Parkinson Lifestyle-associated features were evaluated: Conditions Prior to Dx: Depression: Anxiety: Melanoma: Constipation: Yelling: Head Trauma: Habits/exposures Prior to Dx Smoking: No Caffeinated coffee (1-cup+): No Caffeinated soda/tea (2 cups+): No Alcohol (1 bottle/shot/glass+): No Exercise (3x/wk+): No Ibuprofen use (1x/wk+): No Pesticides: No Welding: No In addition, the following non-motor symptoms and palliative concerns were evaluated: Sleep/Fatigue: REM sleep behavior disorder: No Restless Legs Syndrome: Yes Leg swelling: Yes Impaired sense of smell: Yes Cognition: Cognitive impairment: yes MoCA Cognitive assessment: Hallucinations and delusions: yes On Amantadine, not currently Apathy: no Impulse control disorder: No Palliative Concerns: Caregiver burden: Spiritual concerns: Advanced directives on file: Palliative services: Therapy and Exercise: Last PT Date: Last OT Date: Last ST Date: Exercises Regularly: No Review of Systems ALLERGIES Allergen Reactions Lyrica [Pregabalin] dizzy,sick to stomach Macrobid [Nitrofura* Hives Morphine Vomiting Current Outpatient Medications Medication Sig metoprolol succinate ER (TOPROL XL) 25 mg 24 hr tablet Take 1 tablet by mouth every afternoon. amitriptyline (ELAVIL) 10 mg tablet Take 1 tablet by mouth daily at bedtime. DULoxetine (CYMBALTA) 60 mg capsule Take 1 capsule by mouth once daily. cyanocobalamin (VITAMIN B-12) 1,000 mcg tab Take 1 tablet by mouth once daily. ondansetron (ZOFRAN) 4 mg tablet Take 1 tablet by mouth every 8 hours as needed for nausea/vomiting. traMADol (ULTRAM) 50 mg tablet Take 50 mg by mouth every 6 hours as needed. gabapentin (NEURONTIN) 100 mg capsule Take 1 capsule by mouth (more content not included)... [facility] 08-05-2023 Instructions Rubio Escalante MD - 08/05/2023 9:49 AM EDT It was a pleasure to see you today. We addressed the following diagnoses: Parkinson's disease without dyskinesia or fluctuating manifestations (primary encounter diagnosis) My recommendations are as follows: 08/05/2023 Visit: Parkinson's disease - Start Sinemet 25/100, 1/2 tablet at 7AM, 12PM and 5PM for 1 week, then increase first dose to 1 tablet. Let me know if there are hallucinations. We may be able to increase more in the future if tolerated. History of hallucinations, memory concerns - Stop Elavil (amitriptyline). Deconditioning - Start Physical Therapy Movement Disorders Medication Schedule: Medications 7AM 12PM 5PM Sinemet 25/100 1 0.5 0.5 Return at or around: 11/05/23 If there are any concerns before your next visit, please call or you can send a message through [facility]. You can also now schedule and select appointments through [facility]. Rubio Escalante MD documented in this encounter [facility] 08-05-2023 History of Present illness Narrative [facility] - NEW PATIENT EVALUATION Primary Care Provider: Sudarshan Mojica MD [id number] [facility] [id number] Dear Sudarshan Mojica MD: I had the pleasure of evaluating Ms. Orantes in our clinic today. As you know she is a 73 year old right-handed female who presents for evaluation of Parkinson's disease since 2019. She is seen with a daughter. Subjective HISTORY OF PRESENT ILLNESS: Initial HPI Her symptoms started with right hand tremors. She saw a Dr. Ohara in [place] and was placed on medication. She did have hallucinations at one point and medications were stopped. She was seeing stuffed animals that were moving. It looks like she was on amantadine. She also has neck pain and is on Elavil. Sometimes she has pain in her stomach too. She lives at home with her granddaughter. She may freeze with walking. Movement Disorders Medications Schedule - as of the start of the visit: Medications None Questionnaires In addition, the following activities of daily living that may be affected by tremors were evaluated: Speaking: Not affected Feeding: Affected (mild) Bringing Liquids to Mouth: Affected (mild) Hygiene: Affected (moderate) Dressing: Affected (marked) Writing: Affected (moderate) Working: Affected (marked) Number of falls in the Last Month: 0 In addition, the following areas that may be affected by abnormal involuntary movements were evaluated: Daily activities Difficulties with eatin (none) Difficulties in dressing: Yes (slight) Difficulties with hygiene activities: Yes (mild) Difficulties with handwritin (none) Difficulties with doing hobbies and other activities: Yes (mild) Difficulties turning in bed: 0 (none) Difficulties getting out of bed, car or chair: Yes (mild) Tremors/Gait/Balance Shaking or tremors: Yes (mild) Walking and balance problems: Yes (moderate) Number of falls in the Last Month: 0 Gait freezing: Yes (severe) Autonomic/Pain Lightheadeness on standing: Yes (mild) Urinary problems: Yes (severe) Constipation problems: Yes (moderate) Pain and other sensations: Yes (moderate) Speech/Swallowing Speech problems: 0 (none) Droolin (none) Chewing and swallowing problems: 0 (none) Sleep/Fatigue Sleep problems: Yes (moderate) Daytime sleepiness: Yes (moderate) Fatigue: Yes (moderate) Mood/Behavior Depression: PHQ-9 Score: 9 usually representing mild (5-9) depression. Anxiety: CASTRO-7 Total Score: 16 usually representing severe (>15) anxiety. Finally, the following table shows the patient's overall global physical and mental health using the PROMIS scale: PROMIS-10 Flowsheet Row Office Visit from 06/11/2023 in Pain Management Office Visit from 09/17/2022 in Family Medicine [place] Global Physical Health T Score 34.9 29.6 Global Mental Health T Score 53.3 45.8 0-10 Standard Pain Scale 3 2 *PROMIS-10 scoring scale: mean = 50, over 50 is above average, under 50 is below average In addition, the following Parkinson Lifestyle-associated features were evaluated: Conditions Prior to Dx: Depression: Anxiety: Melanoma: Constipation: Yelling: Head Trauma: Habits/exposures Prior to Dx Smoking: No Caffeinated coffee (1-cup+): No Caffeinated soda/tea (2 cups+): No Alcohol (1 bottle/shot/glass+): No Exercise (3x/wk+): No Ibuprofen use (1x/wk+): No Pesticides: No Welding: No In addition, the following non-motor symptoms and palliative concerns were evaluated: Sleep/Fatigue: REM sleep behavior disorder: No Restless Legs Syndrome: Yes Leg swelling: Yes Impaired sense of smell: Yes Cognition: Cognitive impairment: yes MoCA Cognitive assessment: Hallucinations and delusions: yes On Amantadine, not currently Apathy: no Impulse control disorder: No Palliative Concerns: Caregiver burden: Spiritual concerns: Advanced directives on file: Palliative services: Therapy and Exercise: Last PT Date: Last OT Date: Last ST Date: Exercises Regularly: No Review of Systems ALLERGIES Allergen Reactions Lyrica [Pregabalin] dizzy,sick to stomach Macrobid [Nitrofura* Hives Morphine Vomiting Current Outpatient Medications Medication Sig metoprolol succinate ER (TOPROL XL) 25 mg 24 hr tablet Take 1 tablet by mouth every afternoon. amitriptyline (ELAVIL) 10 mg tablet Take 1 tablet by mouth daily at bedtime. DULoxetine (CYMBALTA) 60 mg capsule Take 1 capsule by mouth once daily. cyanocobalamin (VITAMIN B-12) 1,000 mcg tab Take 1 tablet by mouth once daily. ondansetron (ZOFRAN) 4 mg tablet Take 1 tablet by mouth every 8 hours as needed for nausea/vomiting. traMADol (ULTRAM) 50 mg tablet Take 50 mg by mouth every 6 hours as needed. gabapentin (NEURONTIN) 100 mg capsule Take 1 capsule by mouth three times daily for [address] (PROTONIX) 40 mg tablet Take 1 tablet by mouth once daily. ondansetron orally disintegrating (ZOFRAN ODT) 4 mg disintegrating tablet Take 1 tablet by mouth every 6 hours as needed for nausea/vomiting. polyethylene glycol 3350 (MIRALAX, GLYCOLAX) 17 gram/dose powder PLACE (ONE SCOOP) IN 8 OZ OF WATER DAILY UNTIL STOOLS ARE REGULAR UP TO TWO(2) WEEKS acetaminophen (TYLENOL) 500 mg tablet Take 500 mg by mouth every 8 hours as needed. carbidopa-levodopa (SINEMET) 25-100 mg per tablet Take 1/2 tablet at 7AM, 12PM and 5PM for 1 week with food, then in 1 week increase the first dose to 1 full tablet simethicone, chewable (MYLICON) 80 mg chewable tablet Take 80 mg by mouth three times daily. (Patient not taking: Reported on 08/04/2023) No current facility-administered medications for this visit. Past Medical and Surgical History: has a past medical history of Chronic back pain, Chronic left SI joint pain (03/23/2017), Essential hypertension, benign (07/06/2012), Fibromyalgia, Hyperlipidemia, Irritable bowel syndrome with both constipation and diarrhea (04/19/2017), Lumbar radiculopathy (04/12/2017), Renal calculus, right (04/19/2017), Scoliosis of thoracolumbar spine (03/23/2017), Situational depression (09/10/2017), and Thoracic radiculopathy due to degenerative joint disease of spine (12/01/2013). has a past surgical history that includes colonoscopy w/biopsy single/multiple (11/18/2012); laparoscopy surg cholecystectomy (12/01/2012); egd transoral biopsy single/multiple (05/11/2017); colonoscopy w/biopsy single/multiple (05/11/2017); esophagogastroduodenoscopy transoral diagnostic (07/05/2018); egd (10/09/2020); d+c (01/16/2021); past surgical history of (N/A, 07/24/2022); and inguinal hernia repair hx (Left, 12/02/2022). Social History Tobacco Use Smoking status: Never Smokeless tobacco: Never Vaping Use Vaping Use: Never used Substance Use Topics Alcohol use: No Drug use: No Family History: family history includes Ischemic Heart Disease in her father. Objective Vital Signs: Ht 157.5 cm (5' 2 ) Wt 62.6 kg (138 lb 1.6 oz) SpO2 99% BMI 25.26 kg/m Orthostatic Vitals: Sitting: BP 186/92 Pulse 73 Standing: BP 151/94 Pulse 86 No LMP recorded. Patient is postmenopausal. Body mass index is 25.26 kg/m . General Physical Examination: General Exam General Neurological Examination: Neurological Exam Mental Status Awake, alert and oriented to person, place and time. Speech is normal. Language is fluent with no aphasia. Cranial Nerves CN II-XII grossly intact, except as otherwise noted. Motor Normal muscle bulk throughout. Normal muscle tone. The following abnormal movements were seen: Strength is 5/5 throughout all four extremities. See UPDRS. Has right arm tremor. Severe left > right bradykinesia and moderate rigidity. Sensory Light touch is normal in upper and lower extremities. Reflexes Right Left Brachioradialis 2+ 2+ Biceps 2+ 2+ Patellar 2+ 2+ Achilles 2+ 2+ Right Plantar: downgoing Left Plantar: downgoing Coordination [id number], rapid alternating movements and [id number] normal bilaterally without dysmetria. Gait Casual gait: Narrow stance. Reduced stride length. A little freezing, very short steps. Movement Disorders Scales Performed: MDS-UPDRS Motor subscale condition of exam Medication Off/On/Naiive OFF Time of UPDRS 0931 Time of Last Medication Last Medication Taken DBS Right N/A DBS Left N/A MDS-UPDRS Motor subscale scores Speech 2-Mild. Loss of modulation, diction, or volume, with a few words unclear, but the overall sentences easy to follow. Facial Expression 2-Mild. In addition to decreased eye-blink frequency, Masked facies present in the lower face as well, namely fewer movements around the mouth, such as less spontaneous smiling, but lips not parted. Rigidity Neck 3-Moderate. Rigidity detected without the activation maneuver. Full range of motion is achieved with effort. Rigidity Right Upper Extremity 2-Mild. Rigidity detected without the activation maneuver, but full range of motion is easily achieved. Rigidity Left Upper Extremity 2-Mild. Rigidity detected without the activation maneuver, but full range of motion is easily achieved. Rigidity Right Lower Extremity 2-Mild. Rigidity detected without the activation maneuver, but full range of motion is easily achieved. Rigidity Left Lower Extremity 2-Mild. Rigidity detected without the activation maneuver, but full range of motion is easily achieved. Finger Taps Right 4-Severe. Cannot or can only barely perform the task because of slowing, interruptions or decrements. Finger Taps Left 4-Severe. Cannot or can only barely perform the task because of slowing, interruptions or decrements. Hand Movements Right 2-Mild. a) 3 to 5 interruptions during the movements, b) mild slowing, c) the amplitude decrements midway in the task. Hand Movements Left 3-Moderate. a) more than 5 interruptions during the movement or at least one longer arrest (freeze) in ongoing movement, b) moderate slowing, c) the amplitude decrements starting after the 1st [id number] sequence. Arm Movements Right 3-Moderate. a) more than 5 interruptions during the movement or at least one longer arrest (freeze) in ongoing movement, b) moderate slowing, c) the amplitude decrements starting after the 1st supination-pronation sequence. Arm Movements Left 3-Moderate. a) more than 5 interruptions during the movement or at least one longer arrest (freeze) in ongoing movement, b) moderate slowing, c) the amplitude decrements starting after the 1st supination-pronation sequence. Toe Taps Right 3-Moderate. a) more than 5 interruptions during the tapping movements or at least one longer arrest (freeze) in ongoing movement, b) moderate slowing, c) the amplitude decrements starting after the first tap. Toe Taps Left 3-Moderate. a) more than 5 interruptions during the tapping movements or at least one longer arrest (freeze) in ongoing movement, b) moderate slowing, c) the amplitude decrements starting after the first tap. Leg Agility Right 2-Mild. a) 3 to 5 interruptions during the movements, b) mild slowness, c) the amplitude decrements midway in the task. Leg Agility Left 3-Moderate. a) more than 5 interruptions during the movement or at least one longer arrest (freeze) in ongoing movement, b) moderate slowing in speed, c) amplitude decrements after the first tap. Arise From Chair 3-Moderate. Needs to push off, but tends to fall back, or may have to try more than one time using arms of chair, but can get up without help. Gait 3-Moderate. Requires an assistance device for safe walking (walking stick, walker) but not a person. Gait Freezing 2-Mild. Freezes on starting, turning, or walking through doorway with more than one halt during any of these activities, but continues smoothly without freezing during straight walking. Posture Stability 3-Moderate. Stands safely, but with absence of postural response, falls if not caught by examiner. Posture 3-Moderate. Stooped posture, scoliosis or leaning to one side that cannot be corrected volitionally to a normal posture by the patient. Body Bradykinesia 3-Moderate. Moderate global slowness and poverty of spontaneous movements. Postural Tremor Hand Right 1-Slight. Tremor is present but less than 1cm in amplitude. Postural Tremor Hand Left 1-Slight. Tremor is present but less than 1cm in amplitude. Kinetic Tremor Right 0-Normal. No tremor. Kinetic Tremor Left 0-Normal. No tremor. Rest Tremor Amplitude Right Upper Extremity 3-Moderate. 3 - 10 cm in maximal amplitude. Rest Tremor Amplitude Left Upper Extremity 0-Normal. No tremor. Rest Tremor Amplitude Right Lower Extremity 0-Normal. No tremor. Rest Tremor Amplitude Left Lower Extremity 0-Normal. No tremor. Rest Tremor Amplitude Lip/Jaw 0-Normal. No tremor. Rest Tremor Constancy 2-Mild. Tremor at rest is present 26-50% of the entire examination period. MDS-UPDRS Motor subscale totals Left Total 21 Right Total 22 Midline Total 24 Tremor Total / 10 7 PIGD Total / 3 8 Overall Total 69 % Change Compared to Last Filed Total Assessment and Plan: Assessment Ms. Orantes is a right-handed 73 year old year old female with Parkinson's disease with right sided tremor predominance and history of hallucinations when on amantadine. We need to avoid anticholinergic medications in her and she may tolerate and benefit from Sinemet. I am recommending a conservative dose and titration and would also suggest stopping Elavil. If needed for sleep, trazodone may be an option. The following are the current problems noted and addressed during this visit: Parkinson's disease without dyskinesia or fluctuating manifestations (primary encounter diagnosis) Plan 08/05/2023 Visit: Parkinson's disease - Start Sinemet 25/100, 1/2 tablet at 7AM, 12PM and 5PM for 1 week, then increase first dose to 1 tablet. Let me know if there are hallucinations. We may be able to increase more in the future if tolerated. History of hallucinations, memory concerns - Stop Elavil (amitriptyline). Deconditioning - Start Physical Therapy Patient's perception of importance for healthcare provider to let them know of research trials for which they may be eligible? Very Important Updated Movement Disorders Medication Schedule: Medications 7AM 12PM 5PM Sinemet 25/100 1 0.5 0.5 Thank you for allowing me to be part of the clinical care of this patient! I look forward to continued participation in the patient s care with you. Please do not hesitate to call with any questions. Sincerely, Rubio Escalante MD documented in this encounter [facility] 07-09-2023 Note HNO ID: [id number] Author: Sudarshan Mojica MD Service: ? Author Type: Physician Type: Progress Notes Filed: 07/09/2023 5:16 PM Note Text: Patient presents with: Follow Up: Follow up from [facility]. HPI: Patient presents today for office visit for follow up. In March had hernia surgery. After that went back into the hospital with right sided stomach pain and fever. They initially admitted her for a sepsis work up and then she developed a rash that was diagnosed as shingles. They then cleared her to go to [facility] for recovery. At [facility] for rehab. Discharged from there in May. Has been very anxious. Reviewed all the current medications. She had her anxiety med and bp meds changed. Still seeing pain management. She is seeing a new neurologist next month. She is currently off all parkinson's meds. She apparently was hallucinating until they were stopped. Appetite is fair. She currently is living with family Has occasional loose stools. Was also placed on b12 No chest pain or shortness of breath. No recent falls. MEDICATIONS: Current Outpatient Medications Medication Sig traMADol (ULTRAM) 50 mg tablet Take 50 mg by mouth every 6 hours as needed. pantoprazole DR (PROTONIX) 40 mg tablet Take 1 tablet by mouth once daily. simethicone, chewable (MYLICON) 80 mg chewable tablet Take 80 mg by mouth three times daily. ondansetron orally disintegrating (ZOFRAN ODT) 4 mg disintegrating tablet Take 1 tablet by mouth every 6 hours as needed for nausea/vomiting. polyethylene glycol 3350 (MIRALAX, GLYCOLAX) 17 gram/dose powder PLACE (ONE SCOOP) IN 8 OZ OF WATER DAILY UNTIL STOOLS ARE REGULAR UP TO TWO(2) WEEKS acetaminophen (TYLENOL) 500 mg tablet Take 500 mg by mouth every 8 hours as needed. metoprolol succinate ER (TOPROL XL) 25 mg 24 hr tablet Take 1 tablet by mouth every afternoon. amitriptyline (ELAVIL) 10 mg tablet Take 1 tablet by mouth daily at bedtime. DULoxetine (CYMBALTA) 60 mg capsule Take 1 capsule by mouth once daily. cyanocobalamin (VITAMIN B-12) 1,000 mcg tab Take 1 tablet by mouth once daily. ondansetron (ZOFRAN) 4 mg tablet Take 1 tablet by mouth every 8 hours as needed for nausea/vomiting. gabapentin (NEURONTIN) 100 mg capsule Take 1 capsule by mouth three times daily for 30 days. No current facility-administered medications for this visit. ALLERGIES: ALLERGIES Allergen Reactions Lyrica [Pregabalin] dizzy,sick to stomach Macrobid [Nitrofura* Hives Morphine Vomiting PAST MEDICAL HISTORY Diagnosis Date Chronic back pain pinched nerves in back Chronic left SI joint pain 03/23/2017 Essential hypertension, benign 07/06/2012 Fibromyalgia Hyperlipidemia Irritable bowel syndrome with both constipation and diarrhea 04/19/2017 Lumbar radiculopathy 04/12/2017 Renal calculus, right 04/19/2017 Scoliosis of thoracolumbar spine 03/23/2017 Situational depression 09/10/2017 Thoracic radiculopathy due to degenerative joint disease of spine 12/01/2013 PAST SURGICAL HISTORY Procedure Laterality Date COLONOSCOPY W/BIOPSY SINGLE/MULTIPLE 11/18/2012 COLONOSCOPY W/BIOPSY SINGLE/MULTIPLE 05/11/2017 Normal colonoscopy, normal terminal ileum-unremarkable biopsies D+C 01/16/2021 Hysteroscopy, biopsy urethral caruncle EGD 10/09/2020 EGD TRANSORAL BIOPSY SINGLE/MULTIPLE 05/11/2017 Mild reflux otherwise normal-unremarkable biopsies ESOPHAGOGASTRODUODENOSCOPY TRANSORAL DIAGNOSTIC 07/05/2018 EGD INGUINAL HERNIA REPAIR HX Left 12/02/2022 laporocopic left inguinal repair LAPAROSCOPY SURG CHOLECYSTECTOMY 12/01/2012 with ventral hernia repair PAST SURGICAL HISTORY OF N/A 07/24/2022 Hysteroscopy with DANDC and Examination under anesthesia FAMILY HISTORY Problem Relation Age of Onset Ischemic Heart Disease Father FATHER SIDE OF FAMILY HISTORY OF HEART ATTACKS Social History Tobacco Use Smoking status: Never Smokeless tobacco: Never Vaping Use Vaping Use: Never used Substance Use Topics Alcohol use: No Drug use: No Reviewed current medications, allergies, past medical history, surgical history, family history and social history today. REVIEW OF SYSTEMS All other reviewed and negative other than HPI. HEALTH MAINTENANCE: Reviewed health maintenance issues today and recommended the following in detail. Covid-19 Vaccine(1) Never done Shingrix Vaccine(2 of 3) due on 09/13/2013 BP Controlled (<130/80) due on 05/05/2019 Advance Directive Discussion- on file Influenza Vaccine(1) due on 06/18/2023 VITALS: BP 140/74 Pulse 86 Resp 16 Wt 62.5 kg (137 lb 12.8 oz) SpO2 97% BMI 24.41 kg/m? Last 4 Encounter Wt Readings: Date: Wt: 07/09/2023 62.5 kg (137 lb 12.8 oz) 01/05/2023 64.9 kg (143 lb) 12/09/2022 59 kg (130 lb) 11/25/2022 59 kg (130 lb) PHYSICAL EXAMINATION: General appearance: Well appearing, alert, in no acute distress, well-hydrated, well nourished. Skin: Skin color, te (more content not included)... [facility] 07-09-2023 History of Present illness Narrative Patient presents with: Follow Up: Follow up from [facility]. HPI: Patient presents today for office visit for follow up. In March had hernia surgery. After that went back into the hospital with right sided stomach pain and fever. They initially admitted her for a sepsis work up and then she developed a rash that was diagnosed as shingles. They then cleared her to go to [facility] for recovery. At [facility] for rehab. Discharged from there in May. Has been very anxious. Reviewed all the current medications. She had her anxiety med and bp meds changed. Still seeing pain management. She is seeing a new neurologist next month. She is currently off all parkinson's meds. She apparently was hallucinating until they were stopped. Appetite is fair. She currently is living with family Has occasional loose stools. Was also placed on b12 No chest pain or shortness of breath. No recent falls. MEDICATIONS: Current Outpatient Medications Medication Sig traMADol (ULTRAM) 50 mg tablet Take 50 mg by mouth every 6 hours as needed. pantoprazole DR (PROTONIX) 40 mg tablet Take 1 tablet by mouth once daily. simethicone, chewable (MYLICON) 80 mg chewable tablet Take 80 mg by mouth three times daily. ondansetron orally disintegrating (ZOFRAN ODT) 4 mg disintegrating tablet Take 1 tablet by mouth every 6 hours as needed for nausea/vomiting. polyethylene glycol 3350 (MIRALAX, GLYCOLAX) 17 gram/dose powder PLACE (ONE SCOOP) IN 8 OZ OF WATER DAILY UNTIL STOOLS ARE REGULAR UP TO TWO(2) WEEKS acetaminophen (TYLENOL) 500 mg tablet Take 500 mg by mouth every 8 hours as needed. metoprolol succinate ER (TOPROL XL) 25 mg 24 hr tablet Take 1 tablet by mouth every afternoon. amitriptyline (ELAVIL) 10 mg tablet Take 1 tablet by mouth daily at bedtime. DULoxetine (CYMBALTA) 60 mg capsule Take 1 capsule by mouth once daily. cyanocobalamin (VITAMIN B-12) 1,000 mcg tab Take 1 tablet by mouth once daily. ondansetron (ZOFRAN) 4 mg tablet Take 1 tablet by mouth every 8 hours as needed for nausea/vomiting. gabapentin (NEURONTIN) 100 mg capsule Take 1 capsule by mouth three times daily for 30 days. No current facility-administered medications for this visit. ALLERGIES: ALLERGIES Allergen Reactions Lyrica [Pregabalin] dizzy,sick to stomach Macrobid [Nitrofura* Hives Morphine Vomiting PAST MEDICAL HISTORY Diagnosis Date Chronic back pain pinched nerves in back Chronic left SI joint pain 03/23/2017 Essential hypertension, benign 07/06/2012 Fibromyalgia Hyperlipidemia Irritable bowel syndrome with both constipation and diarrhea 04/19/2017 Lumbar radiculopathy 04/12/2017 Renal calculus, right 04/19/2017 Scoliosis of thoracolumbar spine 03/23/2017 Situational depression 09/10/2017 Thoracic radiculopathy due to degenerative joint disease of spine 12/01/2013 PAST SURGICAL HISTORY Procedure Laterality Date COLONOSCOPY W/BIOPSY SINGLE/MULTIPLE 11/18/2012 COLONOSCOPY W/BIOPSY SINGLE/MULTIPLE 05/11/2017 Normal colonoscopy, normal terminal ileum-unremarkable biopsies D+C 01/16/2021 Hysteroscopy, biopsy urethral caruncle EGD 10/09/2020 EGD TRANSORAL BIOPSY SINGLE/MULTIPLE 05/11/2017 Mild reflux otherwise normal-unremarkable biopsies ESOPHAGOGASTRODUODENOSCOPY TRANSORAL DIAGNOSTIC 07/05/2018 EGD INGUINAL HERNIA REPAIR HX Left 12/02/2022 laporocopic left inguinal repair LAPAROSCOPY SURG CHOLECYSTECTOMY 12/01/2012 with ventral hernia repair PAST SURGICAL HISTORY OF N/A 07/24/2022 Hysteroscopy with D&C and Examination under anesthesia FAMILY HISTORY Problem Relation Age of Onset Ischemic Heart Disease Father FATHER SIDE OF FAMILY HISTORY OF HEART ATTACKS Social History Tobacco Use Smoking status: Never Smokeless tobacco: Never Vaping Use Vaping Use: Never used Substance Use Topics Alcohol use: No Drug use: No Reviewed current medications, allergies, past medical history, surgical history, family history and social history today. REVIEW OF SYSTEMS All other reviewed and negative other than HPI. HEALTH MAINTENANCE: Reviewed health maintenance issues today and recommended the following in detail. Covid-19 Vaccine(1) Never done Shingrix Vaccine(2 of 3) due on 09/13/2013 BP Controlled (<130/80) due on 05/05/2019 Advance Directive Discussion- on file Influenza Vaccine(1) due on 06/18/2023 VITALS: BP 140/74 Pulse 86 Resp 16 Wt 62.5 kg (137 lb 12.8 oz) SpO2 97% BMI 24.41 kg/m Last 4 Encounter Wt Readings: Date: Wt: 07/09/2023 62.5 kg (137 lb 12.8 oz) 01/05/2023 64.9 kg (143 lb) 12/09/2022 59 kg (130 lb) 11/25/2022 59 kg (130 lb) PHYSICAL EXAMINATION: General appearance: Well appearing, alert, in no acute distress, well-hydrated, well nourished. Skin: Skin color, texture, turgor normal, no suspicious rashes or lesion Lungs: Lungs clear to auscultation. No wheezing, rhonchi, rales Heart: RRR without murmur, gallop, or rubs. No ectopy Abdomen: Normal abdominal exam, Abdomen soft, non-tender. Bowel sounds normal. No masses, organomegaly Extremities: No deformities, edema, skin discoloration, clubbing or cyanosis. Good capillary refill. Musculoskeletal: No joint swelling, deformity, or tenderness Peripheral pulses: Normal Neuro: tremor is present. No focal deficits. ASSESSMENT/PLAN: 1. Herpes zoster without complication - ICD9: 053.9, ICD10: B02.9 (primary diagnosis) - resolved. Discussed getting shingles vaccine but at least a year down the road. 2. Parkinson's disease (HCC) - ICD9: 332.0, ICD10: G20 -see neuro. 3. Fibromyalgia - ICD9: 729.1, ICD10: M79.7 -c ontinue meds. - AMITRIPTYLINE 10 MG TABLET 4. Essential hypertension, benign - ICD9: 401.1, ICD10: I10 - fair control. Follow lasb. - METOPROLOL SUCCINATE ER 25 MG TABLET,EXTENDED RELEASE 24 HR 5. Chronic gastritis without bleeding, unspecified gastritis type - ICD9: 535.10, ICD10: K29.50 -= stable 6. Stage 3a chronic kidney disease (HCC) - ICD9: 585.3, ICD10: N18.31 - follow labs. 7. DDD (degenerative disc disease), lumbar - ICD9: 722.52, ICD10: M51.36 - per pain management. 8. Situational depression - ICD9: 309.0, ICD10: F43.21 -increase meds. 9. Anxiety - ICD9: 300.00, ICD10: F41.9 - as above. - DULOXETINE 60 MG CAPSULE,DELAYED RELEASE 10. GERD without esophagitis - ICD9: 530.81, ICD10: K21.9 - continue med 11. Vitamin B12 deficiency - ICD9: 266.2, ICD10: E53.8 - CYANOCOBALAMIN (VIT B-12) 1,000 MCG TABLET 12. Need for influenza vaccination - ICD9: V04.81, ICD10: Z23 - INFLUENZA VACCINE, PRSV FREE, AGE 65+ YR, HIGH DOSE, QUADRIVALENT (FLUZONE HIGH-DOSE) Sudarshan Mojica MD RTO in six weeks or prn. documented in this encounter [facility] 06-28-2023 Miscellaneous Notes Will close due to no response from patient or family. Call to [employer]-Left message to call office. Scheduled 07/09/23 for [facility] follow up. If patient is home from fpc now would like her to come in sooner. Move to a hospital follow up visit and schedule for 40 minute visit. documented in this encounter [facility] 06-28-2023 Miscellaneous Notes Patient has been identified by name and date of : Yes Requested Prescriptions Pending Prescriptions Disp Refills metoprolol succinate ER (TOPROL XL) 25 mg 24 hr tablet 30 tablet 0 Sig: Take 1 tablet by mouth every afternoon. RX INSTRUCTIONS: Patient aware RX will be sent to pharmacy. No need to notify patient. Patient is scheduled 07/09/23 this medication would be from hospital/[facility]. Giana Banuelos LPN documented in this encounter [facility] 06-16-2023 Note HNO ID: [id number] Author: Charles Cadet APRN.EMPLOYMENT LAW ATTORNEY Service: ? Author Type: Nurse Practitioner Type: Progress Notes Filed: 06/16/2023 6:24 AM Note Text: This is an Express Care eVisit note for Katheryn Orantes eVisit/Questionnaire reviewed The chief complaint for the visit - Patient presents with: UTI Eye Problem Recommendations/Treatment plan - See My Chart Message to patient Charlse Cadet APRN.CNP TIME SPENT ON EVISIT: < 5 mins [facility] 06-16-2023 History of Present illness Narrative This is an Express Care eVisit note for Katheryn Brower Lamberto eVisit/Questionnaire reviewed The chief complaint for the visit - Patient presents with: UTI Eye Problem Recommendations/Treatment plan - See My Chart Message to patient Charles Cadet APRN.CNP TIME SPENT ON EVISIT: < 5 mins documented in this encounter [facility] 06-11-2023 Note HNO ID: [id number] Author: Racheal Clemens APRN.EMPLOYMENT LAW ATTORNEY Service: ? Author Type: Nurse Practitioner Type: Progress Notes Filed: 06/18/2023 12:32 PM Note Text: Subjective Katheryn Orantes presents to [facility] for a follow up appointment. Since the last visit, Katheryn Orantes states the pain has been improving with Tramadol. Current pain intensity is 6 on a scale of 0-10. Pain located in lower back area. Pain described as shooting and stabbing Symptoms interfere with physical activity, standing, walking, and lifting. Pain is exacerbated by unable to pinpoint exacerbating factors/positions. Pain is mitigated by Tramadol. Review of Systems Constitutional: (-) Weight Gain (-) Weight Loss (-) Fatigue Cardiovascular: (-) hx heart surgery (-) Pacemaker Respiratory: (-) Shortness of Breath (-) Cough (-) Snoring Gastrointestinal: (-) Incontinence (-) Diarrhea (-) Constipation (-) Nausea/Vomiting Endocrine: (-) Thyroid Disorder (-) Diabetes Hematologic: (-) Prolonged Bleeding (-) Easy Bruising Genitourinary: (-) Incontinence (-) Frequency (-) Urinary Urgency Skin: (-) Open sores/wound Neurologic: (-) Headache (-) Double Vision Psychiatric: (-) Depression (-) Anxiety (-) Personal History of Alcohol or Substance Abuse (-) Family History of Alcohol or Substance Abuse Chief Complaint Patient presents with: Fibromyalgia Pain Refill Request Physical Examination There were no vitals taken for this visit. General:Thin, Wheelchair, and mild distress Skin: Skin color, texture, turgor normal, no rashes or lesions HEENT: normal, normocephalic, atraumatic, sclera non-icteric Cardiovascular: Regular, rate and rhythm Lungs: Normal respiratory rate and rhythm, unlabored on room air Musculoskeletal: Neck: Supple; good ROM., neg facet loading Back: Tenderness on palpation over the lumbar spine. , Tenderness over the bilateral lumbar facets, Tenderness over the bilateral lumbar paraspinal muscles, Diffiuclty going from sitting to standing., positive facet loading. Limited ROM Extremities: right shoulder tenderness Neurological: Mental Status: alert Motor Strength: weakness in the bilateral LEs Sensory: Tenderness to light touch all throughout. Gait: Antalgic. Presents in wheelchair Trigger points: lumbosacral spine muscles. Assessment Assessment : Patient presents for follow-up visit. She is accompanied with her daughter Patient reports pain in the right shoulder and back due to shingles Patient reports that she was in a [facility] from March through May Patient has a history of Parkinson's disease. Patient reports history of low back pain, mainly on the right side Patient has weakness in the bilateral lower extremities and extreme sensitivity when touched Patient reports her pain is worse at night. She feels that she is unsteady on her feet. She does use a walker at home Patient has a history of Parkinson's disease with right hand tremor and has an appt in July With Dr. Fadia Li of fibromyalgia-diffuse body pain Encounter Diagnosis ICD-10-CM 1. Myalgia M79.10 traMADol (ULTRAM) 50 mg tablet 2. Fibromyalgia M79.7 traMADol (ULTRAM) 50 mg tablet 3. Other chronic pain G89.29 traMADol (ULTRAM) 50 mg tablet 4. Lumbar foraminal stenosis M48.061 traMADol (ULTRAM) 50 mg tablet 5. Facet arthropathy M47.819 OARRS Report: Reviewed: The patient's OARRS report was reviewed and is consistent with the reported medication use. The pain panel was N/A Plan Injection history was reviewed. Medication use and compliance were reviewed. 1. Continue medication management through the Pain Management Center 2. The following approved medication requests have been transmitted electronically. Requested Prescriptions Signed Prescriptions Disp Refills traMADol (ULTRAM) 50 mg tablet 42 tablet 0 Sig: Take 1 tablet by mouth every 4 hours as needed for pain for up to 7 days. 3. Interventional procedure options discussed. none 4. Encouraged regular home exercise program. 5) F/U in 3 months The level of medical decision making for this encounter was low level. I spent a total of 25 minutes on the date of the service which included preparing to see the patient, [id number] patient care, completing clinical documentation, performing a medically appropriate examination, and ordering medications, tests, or procedures. 1. This document has been created with the use of voice recognition technology. It may contain inaccuracies: (e.g. misspellings, inaccurate syntax or word sense) that have escaped review. 2. The physician, nursing staff and medical assistants are a major part of YOUR TREATMENT TEAM and will be handling your phone calls and inquiries, if any. Unless explicitly told otherwise at the time of your office visit, your study results and ensuing treatment plans will be discussed duri (more content not included)... [facility] 06-11-2023 History of Present illness Narrative Subjective Katheryn Brower Orantes presents to [facility] for a follow up appointment. Since the last visit, Katheryn Orantes states the pain has been improving with Tramadol. Current pain intensity is 6 on a scale of 0-10. Pain located in lower back area. Pain described as shooting and stabbing Symptoms interfere with physical activity, standing, walking, and lifting. Pain is exacerbated by unable to pinpoint exacerbating factors/positions. Pain is mitigated by Tramadol. Review of Systems Constitutional: (-) Weight Gain (-) Weight Loss (-) Fatigue Cardiovascular: (-) hx heart surgery (-) Pacemaker Respiratory: (-) Shortness of Breath (-) Cough (-) Snoring Gastrointestinal: (-) Incontinence (-) Diarrhea (-) Constipation (-) Nausea/Vomiting Endocrine: (-) Thyroid Disorder (-) Diabetes Hematologic: (-) Prolonged Bleeding (-) Easy Bruising Genitourinary: (-) Incontinence (-) Frequency (-) Urinary Urgency Skin: (-) Open sores/wound Neurologic: (-) Headache (-) Double Vision Psychiatric: (-) Depression (-) Anxiety (-) Personal History of Alcohol or Substance Abuse (-) Family History of Alcohol or Substance Abuse Chief Complaint Patient presents with: Fibromyalgia Pain Refill Request Physical Examination There were no vitals taken for this visit. General:Thin, Wheelchair, and mild distress Skin: Skin color, texture, turgor normal, no rashes or lesions HEENT: normal, normocephalic, atraumatic, sclera non-icteric Cardiovascular: Regular, rate and rhythm Lungs: Normal respiratory rate and rhythm, unlabored on room air Musculoskeletal: Neck: Supple; good ROM., neg facet loading Back: Tenderness on palpation over the lumbar spine. , Tenderness over the bilateral lumbar facets, Tenderness over the bilateral lumbar paraspinal muscles, Diffiuclty going from sitting to standing., positive facet loading. Limited ROM Extremities: right shoulder tenderness Neurological: Mental Status: alert Motor Strength: weakness in the bilateral LEs Sensory: Tenderness to light touch all throughout. Gait: Antalgic. Presents in wheelchair Trigger points: lumbosacral spine muscles. Assessment Assessment : Patient presents for follow-up visit. She is accompanied with her daughter Patient reports pain in the right shoulder and back due to shingles Patient reports that she was in a fpc from March through May Patient has a history of Parkinson's disease. Patient reports history of low back pain, mainly on the right side Patient has weakness in the bilateral lower extremities and extreme sensitivity when touched Patient reports her pain is worse at night. She feels that she is unsteady on her feet. She does use a walker at home Patient has a history of Parkinson's disease with right hand tremor and has an appt in July With Dr. Fadia Li of fibromyalgia-diffuse body pain Encounter Diagnosis ICD-10-CM 1. Myalgia M79.10 traMADol (ULTRAM) 50 mg tablet 2. Fibromyalgia M79.7 traMADol (ULTRAM) 50 mg tablet 3. Other chronic pain G89.29 traMADol (ULTRAM) 50 mg tablet 4. Lumbar foraminal stenosis M48.061 traMADol (ULTRAM) 50 mg tablet 5. Facet arthropathy M47.819 OARRS Report: Reviewed: The patient's OARRS report was reviewed and is consistent with the reported medication use. The pain panel was N/A Plan Injection history was reviewed. Medication use and compliance were reviewed. 1. Continue medication management through the [facility] 2. The following approved medication requests have been transmitted electronically. Requested Prescriptions Signed Prescriptions Disp Refills traMADol (ULTRAM) 50 mg tablet 42 tablet 0 Sig: Take 1 tablet by mouth every 4 hours as needed for pain for up to 7 days. 3. Interventional procedure options discussed. none 4. Encouraged regular home exercise program. 5) F/U in 3 months The level of medical decision making for this encounter was low level. I spent a total of 25 minutes on the date of the service which included preparing to see the patient, [id number] patient care, completing clinical documentation, performing a medically appropriate examination, and ordering medications, tests, or procedures. 1. This document has been created with the use of voice recognition technology. It may contain inaccuracies: (e.g. misspellings, inaccurate syntax or word sense) that have escaped review. 2. The physician, nursing staff and medical assistants are a major part of YOUR TREATMENT TEAM and will be handling your phone calls and inquiries, if any. Unless explicitly told otherwise at the time of your office visit, your study results and ensuing treatment plans will be discussed during your follow-up appointment. If you do not have a follow-up appointment and wish to discuss any issues, please set up an appointment. 3. It is my practice to not fill disability or any other insurance-related forms/documentation. All of the office notes, study results, and other pertinent documentation generated as part of your evaluation will be available to you and to your Primary Care Physician (PCP). Use of this material to complete such forms will be at the discretion of your PCP/referring physician. The above plan and management options were discussed at length with patient. Patient is in agreement with the above and verbalized understanding. Racheal Clemens APRN, KHALIF June 11, 2023 [facility] documented in this encounter [facility] 04-13-2023 Miscellaneous Notes Placed call to both patient and patients caregiver Hardy multiple times. Patients number states temporary unavailable at this time and Hardy's mailbox is full and I am unable to leave a message. Sending my chart message. Brigitte Benton documented in this encounter [facility] 03-22-2023 Miscellaneous Notes These scripts have refills left at pharmacy. Called pt daughter answered , pt in hospital. She had not idea if they had refills or not was trying to help pt out.She put these in . Explained will cancel. documented in this encounter [facility] 03-22-2023 Miscellaneous Notes Mindy with [facility] Med [facility] called requesting a copy of pt's medications. Pt was identified with name and date of . Per Mindy pt does not not her medications. Fax copy to [phone]. Done. Cami Pappas LPN documented in this encounter [facility] 03-08-2023 Note HNO ID: [id number] Author: Aretha Ann APRN.KHALIF Service: ? Author Type: Nurse Practitioner Type: Progress Notes Filed: 03/08/2023 7:45 PM Note Text: This is a 73 year old female who presents today with: Patient presents with: Pain: Back/stomach- chronic; gabapentin stopped 6 months ago; currently using otc tylenol without relief HISTORY OF PRESENT ILLNESS: Katheryn Orantes is a 73 year old female. Patient presents with: Pain: Back/stomach- chronic; gabapentin stopped 6 months ago; currently using otc tylenol without relief Pt presents today with complaint of chronic pain. Refers it is in the right abdomen (since gallbladder out years ago), lower back, upper back/neck. Presents today w/ granddaughter. She had seen Dr. Tam in the past and had an injection. Granddaughter reports that they only did half of the injection at that time d/t not tolerating the procedure well. Refers that they need to schedule to go back, but hasn't done that yet. Refers she is currently taking tylenol -- 2 tablets every 4 hours. She previously was treated w/ gabapentin several times, but granddaughter reports that it didn't relieve symptoms. Has been off for 6 months. Last dose was 300 mg twice daily. Refers that she has chronic fibromyalgia pain. PAST MEDICAL HISTORY: PAST MEDICAL HISTORY Diagnosis Date Chronic back pain pinched nerves in back Chronic left SI joint pain 03/23/2017 Essential hypertension, benign 07/06/2012 Fibromyalgia Hyperlipidemia Irritable bowel syndrome with both constipation and diarrhea 04/19/2017 Lumbar radiculopathy 04/12/2017 Renal calculus, right 04/19/2017 Scoliosis of thoracolumbar spine 03/23/2017 Situational depression 09/10/2017 Thoracic radiculopathy due to degenerative joint disease of spine 12/01/2013 PAST SURGICAL HISTORY Procedure Laterality Date COLONOSCOPY W/BIOPSY SINGLE/MULTIPLE 11/18/2012 COLONOSCOPY W/BIOPSY SINGLE/MULTIPLE 05/11/2017 Normal colonoscopy, normal terminal ileum-unremarkable biopsies D+C 01/16/2021 Hysteroscopy, biopsy urethral caruncle EGD 10/09/2020 EGD TRANSORAL BIOPSY SINGLE/MULTIPLE 05/11/2017 Mild reflux otherwise normal-unremarkable biopsies ESOPHAGOGASTRODUODENOSCOPY TRANSORAL DIAGNOSTIC 07/05/2018 EGD INGUINAL HERNIA REPAIR HX Left 12/02/2022 laporocopic left inguinal repair LAPAROSCOPY SURG CHOLECYSTECTOMY 12/01/2012 with ventral hernia repair PAST SURGICAL HISTORY OF N/A 07/24/2022 Hysteroscopy with DANDC and Examination under anesthesia ALLERGIES Lyrica [Pregabalin], Macrobid [Nitrofurantoin Monohyd/M-Cryst], and Morphine MEDICATIONS Current Outpatient Medications Medication Sig pantoprazole DR (PROTONIX) 40 mg tablet Take 1 tablet by mouth once daily. lisinopril (ZESTRIL) 20 mg tablet Take 1 tablet by mouth once daily. simethicone, chewable (MYLICON) 80 mg chewable tablet Take 80 mg by mouth three times daily. ondansetron orally disintegrating (ZOFRAN ODT) 4 mg disintegrating tablet Take 1 tablet by mouth every 6 hours as needed for nausea/vomiting. sertraline (ZOLOFT) 50 mg tablet Take 1 tablet by mouth once daily. .wlzo ondansetron (ZOFRAN) 4 mg tablet Take 1 tablet by mouth every 8 hours as needed for nausea/vomiting. polyethylene glycol 3350 (MIRALAX, GLYCOLAX) 17 gram/dose powder PLACE (ONE SCOOP) IN 8 OZ OF WATER DAILY UNTIL STOOLS ARE REGULAR UP TO TWO(2) WEEKS acetaminophen (TYLENOL) 500 mg tablet Take 500 mg by mouth every 8 hours as needed. No current facility-administered medications for this visit. FAMILY HISTORY Problem Relation Age of Onset Ischemic Heart Disease Father FATHER SIDE OF FAMILY HISTORY OF HEART ATTACKS Social History Tobacco Use Smoking status: Never Smokeless tobacco: Never Vaping Use Vaping Use: Never used Substance Use Topics Alcohol use: No Drug use: No EXAM: BP 150/88 Pulse 83 Resp 18 SpO2 90% PHYSICAL EXAM: General Appearance: Well appearing, alert, in no acute distress, well-hydrated, well nourished.. Skin: Skin color, texture, turgor normal, no suspicious rashes or lesions. Head: Normocephalic, no masses, lesions, tenderness or abnormalities. Eyes: Anicteric sclera. Extraocular movements are intact. . Lungs: Lungs clear to auscultation. No wheezing, rhonchi, rales.. Heart: RRR without murmur, gallop, or rubs. No ectopy. Neurologic: Gait normal. ASSESSMENT/PLAN: 1. DDD (degenerative disc disease), lumbar - ICD9: 722.52, ICD10: M51.36 (primary diagnosis) Will do prednisone taper to help get some relief. Then restart gabapentin. She is encouraged to get rescheduled with pain management. Advised patient and granddaughter to update provider in a couple of days, as suspect that the gabapentin will need to be increased. - PREDNISONE 10 MG TABLET 2. Chronic left SI joint pain - ICD9: 724.6, 338.29, ICD10: M53.3, G89.29 As above. - PREDNISONE 10 MG TABLET - GABAPENTIN 100 MG CAPSULE 3. Fib (more content not included)... [facility] 02-01-2023 Miscellaneous Notes Patient has been identified by name and date of : Yes, Provider Date Time Granddaughter phones for refill(s): Requested Prescriptions Pending Prescriptions Disp Refills pantoprazole DR (PROTONIX) 40 mg tablet Sig: Take 1 tablet by mouth once daily. lisinopril (ZESTRIL) 20 mg tablet 90 tablet 3 Sig: Take 1 tablet by mouth once daily. Date of last office visit with pcp: 01/05/23 Date of last office visit in primary care: Last 2 Encounter Wt Readings: Date: Wt: 01/05/2023 64.9 kg (143 lb) 12/09/2022 59 kg (130 lb) Previous labs/tests for medication: Blood Pressure: BUN (mg/dL) Date Value 01/05/2023 16 05/31/2021 16 Sodium (mmol/L) Date Value 01/05/2023 142 05/31/2021 141 Last 1 Encounter BP Readings: Date: BP: 01/05/2023 146/72 Please advise. Thank you. Yasmin Benito RN documented in this encounter [facility] 01-07-2023 Miscellaneous Notes Spoke with Hardy and informed of neg us result. She verbalized understanding. No questions or concerns at this time. Brigitte Benton Placed call to patient on home phone. No answer, no answering machine to leave message. Called granddaughter Hardy cell with no answer. Voicemail full. Unable to leave message. Try again later. My chart message also sent. Brigitte Benton Let her know was negative. Results of US received from [facility]. Scan on 01/05/2023 10:26 PM by External Provider: Ultrasound documented in this encounter [facility] 01-07-2023 Miscellaneous Notes Patient notified. Verbalized understanding. Labs show she is a little dry. Push fluids. Did not give ua and c and s,remember to please do that. documented in this encounter [facility] 01-05-2023 Note HNO ID: [id number] Author: RT Zak(R) Service: Radiology Author Type: Technologist Type: Progress Notes Filed: 01/05/2023 3:22 PM Note Text: Radiology Service Progress Note PATIENT NAME: Katheryn Orantes DATE OF SERVICE: January 05, 2023 TIME: 3:05 PM PATIENT IDENTITY VERIFICATION COMPLETED USING TWO (2) IDENTIFIERS: Name and Date of confirmed by patient verbally. FALL SCREENING: Has the patient had 2 falls in the last year or 1 fall with injury or currently using an Ambulatory Assistive Device (Walker, Cane, Wheelchair, Crutches, etc.)? No PATIENT GENDER DATA: Female. status: : No status: NO. PATIENT RELEVANT IMPLANT DATA REVIEWED: Yes RADIOLOGY DEPARTMENT: General X-ray: Exam(s) Completed: Chest X-Ray Abdomen X-Ray: Abdomen PERIPHERAL IV DATA: Not applicable SIGNED BY: RT Zak(R) January 05, 2023 3:05 PM [facility] 01-05-2023 Note HNO ID: [id number] Author: Sudasrhan Mojica MD Service: ? Author Type: Physician Type: Progress Notes Filed: 01/05/2023 3:31 PM Note Text: Patient presents with: Follow Up HPI: Patient presents today for office visit for follow up from [facility] nursing. Here with her granddaughter. Had laparoscopic left inguinal hernia repair with mesh on 12/02/22. Went in to [facility] 12/04/22 for surgical aftercare. Discharged from [facility] on 01/02/23. Surgery site is ok. No issues currently. Feeling very nauseous today. Hasn't been eating much. She is unsure if she may have taken a left over percocet from surgery without eating. No actual stomach pain. Just moved bowels today. No bloody or black. No vomiting No fever No urinary symptoms. No cough. Would like to discuss stopping Gabapentin. States it's not helping with her pain. Was getting it in [facility] twice daily. But while at home wasn't taking it regularly. Did follow with surgery afterward. Seen at [facility] ER post op. Had a ct that showed hematoma in left inguninal canal. Complaints of anxiety. Granddaughter states she stresses herself out to the point of illness. Requesting antianxiety med. Grand daughter wonders if anxiety med is indicated. She is very anxious. Sees neurology and pain management. Discussed that she probably needs to follow with them Also has swelling in her legs. Started when in ECF. Not sure anything was done. No shortness of breath. No chest pain. No redness or warmth. Weight is up 13 lbs which may in part be to eating more at ECF No hx dvt. MEDICATIONS: Current Outpatient Medications Medication Sig pantoprazole DR (PROTONIX) 40 mg tablet Take 40 mg by mouth once daily. simethicone, chewable (MYLICON) 80 mg chewable tablet Take 80 mg by mouth three times daily. ondansetron (ZOFRAN) 4 mg tablet Take 1 tablet by mouth every 8 hours as needed for nausea/vomiting. lisinopril (ZESTRIL, PRINIVIL) 20 mg tablet TAKE 1 TABLET BY MOUTH EVERY DAY polyethylene glycol 3350 (MIRALAX, GLYCOLAX) 17 gram/dose powder PLACE (ONE SCOOP) IN 8 OZ OF WATER DAILY UNTIL STOOLS ARE REGULAR UP TO TWO(2) WEEKS acetaminophen (TYLENOL) 500 mg tablet Take 500 mg by mouth every 8 hours as needed. No current facility-administered medications for this visit. ALLERGIES: ALLERGIES Allergen Reactions Lyrica [Pregabalin] dizzy,sick to stomach Macrobid [Nitrofura* Hives Morphine Vomiting PAST MEDICAL HISTORY Diagnosis Date Chronic back pain pinched nerves in back Chronic left SI joint pain 03/23/2017 Essential hypertension, benign 07/06/2012 Fibromyalgia Hyperlipidemia Irritable bowel syndrome with both constipation and diarrhea 04/19/2017 Lumbar radiculopathy 04/12/2017 Renal calculus, right 04/19/2017 Scoliosis of thoracolumbar spine 03/23/2017 Situational depression 09/10/2017 Thoracic radiculopathy due to degenerative joint disease of spine 12/01/2013 PAST SURGICAL HISTORY Procedure Laterality Date COLONOSCOPY W/BIOPSY SINGLE/MULTIPLE 11/18/2012 COLONOSCOPY W/BIOPSY SINGLE/MULTIPLE 05/11/2017 Normal colonoscopy, normal terminal ileum-unremarkable biopsies D+C 01/16/2021 Hysteroscopy, biopsy urethral caruncle EGD 10/09/2020 EGD TRANSORAL BIOPSY SINGLE/MULTIPLE 05/11/2017 Mild reflux otherwise normal-unremarkable biopsies ESOPHAGOGASTRODUODENOSCOPY TRANSORAL DIAGNOSTIC 07/05/2018 EGD INGUINAL HERNIA REPAIR HX Left 12/02/2022 laporocopic left inguinal repair LAPAROSCOPY SURG CHOLECYSTECTOMY 12/01/2012 with ventral hernia repair PAST SURGICAL HISTORY OF N/A 07/24/2022 Hysteroscopy with DANDC and Examination under anesthesia FAMILY HISTORY Problem Relation Age of Onset Ischemic Heart Disease Father FATHER SIDE OF FAMILY HISTORY OF HEART ATTACKS Social History Tobacco Use Smoking status: Never Smokeless tobacco: Never Vaping Use Vaping Use: Never used Substance Use Topics Alcohol use: No Drug use: No Reviewed current medications, allergies, past medical history, surgical history, family history and social history today. REVIEW OF SYSTEMS All other reviewed and negative other than HPI. VITALS: BP 146/72 Pulse 80 Temp 37 ?C (98.6 ?F) Ht 160 cm (5' 3 ) Wt 64.9 kg (143 lb) SpO2 97% BMI 25.33 kg/m? Last 4 Encounter Wt Readings: Date: Wt: 12/09/2022 59 kg (130 lb) 11/25/2022 59 kg (130 lb) 10/26/2022 59 kg (130 lb) 09/17/2022 58.5 kg (129 lb) PHYSICAL EXAMINATION: General appearance: holding emesis basin. Appears anxious. Tremor unchanged. Accompanied by her grandddaughter. Skin: Skin color, texture, turgor normal, no suspicious rashes or lesions Head: Normocephalic, no masses, lesions, tenderness or abnormalities Lungs: Lungs clear to auscultation. No wheezing, rhonchi, rales Heart: RRR without murmur, gallop, or rubs. No ectopy Abdomen: Normal abdominal exam, Abdomen soft, non-tender. Bowel tai (more content not included)... [facility] 01-05-2023 History of Present illness Narrative Patient presents with: Follow Up HPI: Patient presents today for office visit for follow up from [facility]. Here with her granddaughter. Had laparoscopic left inguinal hernia repair with mesh on 12/02/22. Went in to [facility] 12/[facility]/22 for surgical aftercare. Discharged from [facility] on 01/02/23. Surgery site is ok. No issues currently. Feeling very nauseous today. Hasn't been eating much. She is unsure if she may have taken a left over percocet from surgery without eating. No actual stomach pain. Just moved bowels today. No bloody or black. No vomiting No fever No urinary symptoms. No cough. Would like to discuss stopping Gabapentin. States it's not helping with her pain. Was getting it in [facility] twice daily. But while at home wasn't taking it regularly. Did follow with surgery afterward. Seen at [facility] ER post op. Had a ct that showed hematoma in left inguninal canal. Complaints of anxiety. Granddaughter states she stresses herself out to the point of illness. Requesting antianxiety med. Grand daughter wonders if anxiety med is indicated. She is very anxious. Sees neurology and pain management. Discussed that she probably needs to follow with them Also has swelling in her legs. Started when in ECF. Not sure anything was done. No shortness of breath. No chest pain. No redness or warmth. Weight is up 13 lbs which may in part be to eating more at ECF No hx dvt. MEDICATIONS: Current Outpatient Medications Medication Sig pantoprazole DR (PROTONIX) 40 mg tablet Take 40 mg by mouth once daily. simethicone, chewable (MYLICON) 80 mg chewable tablet Take 80 mg by mouth three times daily. ondansetron (ZOFRAN) 4 mg tablet Take 1 tablet by mouth every 8 hours as needed for nausea/vomiting. lisinopril (ZESTRIL, PRINIVIL) 20 mg tablet TAKE 1 TABLET BY MOUTH EVERY DAY polyethylene glycol 3350 (MIRALAX, GLYCOLAX) 17 gram/dose powder PLACE (ONE SCOOP) IN 8 OZ OF WATER DAILY UNTIL STOOLS ARE REGULAR UP TO TWO(2) WEEKS acetaminophen (TYLENOL) 500 mg tablet Take 500 mg by mouth every 8 hours as needed. No current facility-administered medications for this visit. ALLERGIES: ALLERGIES Allergen Reactions Lyrica [Pregabalin] dizzy,sick to stomach Macrobid [Nitrofura* Hives Morphine Vomiting PAST MEDICAL HISTORY Diagnosis Date Chronic back pain pinched nerves in back Chronic left SI joint pain 03/23/2017 Essential hypertension, benign 07/06/2012 Fibromyalgia Hyperlipidemia Irritable bowel syndrome with both constipation and diarrhea 04/19/2017 Lumbar radiculopathy 04/12/2017 Renal calculus, right 04/19/2017 Scoliosis of thoracolumbar spine 03/23/2017 Situational depression 09/10/2017 Thoracic radiculopathy due to degenerative joint disease of spine 12/01/2013 PAST SURGICAL HISTORY Procedure Laterality Date COLONOSCOPY W/BIOPSY SINGLE/MULTIPLE 11/18/2012 COLONOSCOPY W/BIOPSY SINGLE/MULTIPLE 05/11/2017 Normal colonoscopy, normal terminal ileum-unremarkable biopsies D+C 01/16/2021 Hysteroscopy, biopsy urethral caruncle EGD 10/09/2020 EGD TRANSORAL BIOPSY SINGLE/MULTIPLE 05/11/2017 Mild reflux otherwise normal-unremarkable biopsies ESOPHAGOGASTRODUODENOSCOPY TRANSORAL DIAGNOSTIC 07/05/2018 EGD INGUINAL HERNIA REPAIR HX Left 12/02/2022 laporocopic left inguinal repair LAPAROSCOPY SURG CHOLECYSTECTOMY 12/01/2012 with ventral hernia repair PAST SURGICAL HISTORY OF N/A 07/24/2022 Hysteroscopy with D&C and Examination under anesthesia FAMILY HISTORY Problem Relation Age of Onset Ischemic Heart Disease Father FATHER SIDE OF FAMILY HISTORY OF HEART ATTACKS Social History Tobacco Use Smoking status: Never Smokeless tobacco: Never Vaping Use Vaping Use: Never used Substance Use Topics Alcohol use: No Drug use: No Reviewed current medications, allergies, past medical history, surgical history, family history and social history today. REVIEW OF SYSTEMS All other reviewed and negative other than HPI. VITALS: BP 146/72 Pulse 80 Temp 37 C (98.6 F) Ht 160 cm (5' 3 ) Wt 64.9 kg (143 lb) SpO2 97% BMI 25.33 kg/m Last 4 Encounter Wt Readings: Date: Wt: 12/09/2022 59 kg (130 lb) 11/25/2022 59 kg (130 lb) 10/26/2022 59 kg (130 lb) 09/17/2022 58.5 kg (129 lb) PHYSICAL EXAMINATION: General appearance: holding emesis basin. Appears anxious. Tremor unchanged. Accompanied by her grandddaughter. Skin: Skin color, texture, turgor normal, no suspicious rashes or lesions Head: Normocephalic, no masses, lesions, tenderness or abnormalities Lungs: Lungs clear to auscultation. No wheezing, rhonchi, rales Heart: RRR without murmur, gallop, or rubs. No ectopy Abdomen: Normal abdominal exam, Abdomen soft, non-tender. Bowel sounds normal. No masses, organomegaly. Nonsurgical abdomen. Extremities: one plus edema. No redness or warmth. No calf tenerness. Musculoskeletal: No joint swelling, deformity, or tenderness Peripheral pulses: Normal Neuro: Negative. ASSESSMENT/PLAN: 1. Nausea - ICD9: 787.02, ICD10: R11.0 (primary diagnosis) They believe Itis primarily related to her anxiety. - PANTOPRAZOLE 40 MG TABLET,DELAYED RELEASE - SIMETHICONE 80 MG CHEWABLE TABLET - URINALYSIS, WITH MICROSCOPIC - URINE CULTURE - ONDANSETRON 4 MG DISINTEGRATING TABLET 2. Anxiety - ICD9: 300.00, ICD10: F41.9 - Discussed risks and benefits of new medication with the patient. Advised them to call if any side effects or questions. - SERTRALINE 50 MG TABLET 3. History of hernia repair - ICD9: V45.89, ICD10: Z98.890, Z87.19 - stable 4. Edema of leg - ICD9: 782.3, ICD10: R60.0 Elevate legs prn. Check xray and labs. - CBC + DIFF - COMP METABOLIC PANEL - US LEG VEIN DVT [facility] 5. Abdominal distention - ICD9: 787.3, ICD10: R14.0 - XR ABDOMEN 1V SUPINE 6. Malaise - ICD9: 780.79, ICD10: R53.81 - XR CHEST 2V FRONTAL/LAT - URINALYSIS, WITH MICROSCOPIC - URINE CULTURE Sudarshan Mojica RTO in one week or prn. RTO in one week and prn. documented in this encounter [facility] 12-09-2022 Note HNO ID: [id number] Author: Farhana Leos PA-C Service: ? Author Type: Physician Ui Software Developer Type: Progress Notes Filed: 12/10/2022 1:45 PM Note Text: FOLLOW UP VISIT - HERNIA NAME: Katheryn Brower [facility] NO.: [id number] DATE OF SERVICE: 12/09/2022 : 1950 REFERRING PHYSICIAN: Sudarshan Mojica MD Katheryn is a patient I am following with Dr. Joseph for a left inguinal hernia. Dr. Joseph performed a laparoscopic left inguinal hernia repair with mesh on 12/02/22. The patient currently notes no major complaints. her appetite has been good. she denies fever, chills or abdominal pain. she does note some moderate incisional discomfort. she notes no bulges at the operative site. Patient with Parkinson's and currently needing assistance with ambulation, has appointment with therapy later today. Patient is a difficult historian. It was noted in Care everywhere after this visit that patient had presented to ED at [facility] with complaints of nausea, weakness and malaise the evening after she had surgery, patient did not mention this during appointment. Had CT scan at that time which showed hematoma in left inguinal canal. VITALS: Blood pressure 138/88, pulse 85, temperature 37 ?C (98.6 ?F), height 160 cm (5' 3 ), weight 59 kg (130 lb), SpO2 97 %. General: patient is alert, cooperative, pleasant and in no acute distress. Patient in wheelchair On examination, the abdomen is benign. The incisions are healing well without signs of infection or inflammation. There are no signs of recurrent hernia formation. Assessment IMPRESSION: status post laparoscopic left inguinal hernia repair with mesh PLAN: If the patient notes any problems, she should contact me immediately. she may return to her regular activities as tolerated, with the exception of no lifting greater than 20 pounds for the next 7 weeks. If patient feels the urge to cough or sneeze, they should brace against the repair site with their hands or a pillow. Diagnoses: (Z98.890, Z87.19) S/P laparoscopic hernia repair (primary encounter diagnosis) Return to Clinic: The patient is instructed to follow-up with me as needed. Patient verbalized understanding of all above and agreed with the plan. Farhana Leos PA-C [facility] 12-09-2022 Instructions Farhana Leos PA-C - 12/09/2022 9:29 AM EST -Recommend warm compress/heating pad to help with discomfort The following instructions are important for you related to your office visit today with the [facility]. INSTRUCTIONS FOLLOWING YOUR RECENT HERNIA SURGERY You should be returning to your regular diet, If you have having persistent issues with tolerating your diet, please contact our office It is not unusual to have incisional pain for the first 1-2 weeks following surgery. If this persists beyond 2 weeks, contact the office You should leave the Steri-Strips in place until they fall off. You may return to your regular activities. You may drive if you are no longer taking narcotic pain medication. Ambulation is encouraged. Sitting up from bed may be uncomfortable. Sitting up using your lateral abdominal muscles (sitting up sideways) is usually more comfortable. You should perform no lifting greater than 20lbs for the next 6-7 weeks. Usually 8 weeks total from the date of surgery. It is not unusual to have loose stools following surgery. This is usually self limited and related to the antibiotics that were given during your surgical procedure. Fiber supplementation and yogurt with active cultures may help you return to regular bowel activity. If you note loose stools persisting for over 2 weeks, or significant cramping or loose bloody stools, contact the office immediately. Contact the office immediately if any of your incisions become increasingly tender, red or have drainage. Again, if you have any difficulties or concerns, contact our office immediately. If you note any additional difficulties, questions, or concerns, you should contact our office immediately @ [phone] and ask to be transferred to the General Surgery department. documented in this encounter [facility] 12-09-2022 History of Present illness Narrative FOLLOW UP VISIT - HERNIA NAME: Katheryn Brower [facility] NO.: [id number] DATE OF SERVICE: 12/09/2022 : 1950 REFERRING PHYSICIAN: Sudarshan Mojica MD Katheryn is a patient I am following with Dr. Joseph for a left inguinal hernia. Dr. Joseph performed a laparoscopic left inguinal hernia repair with mesh on 12/02/22. The patient currently notes no major complaints. her appetite has been good. she denies fever, chills or abdominal pain. she does note some moderate incisional discomfort. she notes no bulges at the operative site. Patient with Parkinson's and currently needing assistance with ambulation, has appointment with therapy later today. Patient is a difficult historian. It was noted in Care everywhere after this visit that patient had presented to ED at [facility] with complaints of nausea, weakness and malaise the evening after she had surgery, patient did not mention this during appointment. Had CT scan at that time which showed hematoma in left inguinal canal. VITALS: Blood pressure 138/88, pulse 85, temperature 37 C (98.6 F), height 160 cm (5' 3 ), weight 59 kg (130 lb), SpO2 97 %. General: patient is alert, cooperative, pleasant and in no acute distress. Patient in wheelchair On examination, the abdomen is benign. The incisions are healing well without signs of infection or inflammation. There are no signs of recurrent hernia formation. Assessment IMPRESSION: status post laparoscopic left inguinal hernia repair with mesh PLAN: If the patient notes any problems, she should contact me immediately. she may return to her regular activities as tolerated, with the exception of no lifting greater than 20 pounds for the next 7 weeks. If patient feels the urge to cough or sneeze, they should brace against the repair site with their hands or a pillow. Diagnoses: (Z98.890, Z87.19) S/P laparoscopic hernia repair (primary encounter diagnosis) Return to Clinic: The patient is instructed to follow-up with me as needed. Patient verbalized understanding of all above and agreed with the plan. Farhana Leos PA-C documented in this encounter [facility] 12-09-2022 Nurse Note REVIEW OF SYSTEMS: General: The patient NOTES fatigue, denies weight loss, denies weight gain, denies feeling hot, and denies feelings of cold. Eyes: The patient denies glaucoma, NOTES eye injury/surgery, does not wear glasses or contacts. Ear/Nose/Throat: The patient NOTES allergies, denies hayfever, denies ear infections, and denies bloody noses. Cardiovascular: The patient denies chest pain, denies heart disease, NOTES high blood pressure,denies cardiac stent, denies prior heart attack, denies irregular heart beat, denies high cholesterol, denies poor circulation, denies heart failure, other cardiac issues, NOTES claudication, denies cold feet, denies peripheral arterial stent. Respiratory: The patient denies tuberculosis, denies pneumonia, denies frequent cough, denies pulmonary embolism, denies shortness of breath, and denies coughing up blood. Gastrointestinal: The patient denies difficulty swallowing, denies acid reflux, denies ulcers, denies vomiting, denies jaundice/hepatitis, NOTES gallbladder problems, denies black or tarry stools, denies hemorrhoids, denies bleeding from rectum, denies diverticulitis, NOTES constipation, denies diarrhea, denies loss of stool control, and NOTES hernias. Kidney/Bladder: The patient denies kidney stones, NOTES urine infections, and denies bloody urine. Skin: The patient denies a history of skin cancer, denies bleeding/changing moles, and denies a history of skin rash. Neurologic: The patient denies a history of epilepsy/convulsions, denies headaches, denies head/spinal injuries, and denies stroke/TIA. Psychiatric: The patient denies psychiatric medications, denies depression, and denies voices, denies substance abuse. Endocrine: The patient denies thyroid disorders, denies diabetes, and denies hormonal problems. Hematologic: The patient denies a history of bruising, denies bleeding, and denies anemia, denies blood clots. Infections: The patient denies a history of measles and mumps, denies rheumatic fever, and denies sexually transmitted diseases. Musculoskeletal: The patient NOTES back pain/injury, NOTES back problems, NOTES sciatica, denies knee/foot trouble, denies arthritis, or denies gout. When was patient's last Mammogram screening? 08/07/2013 Last Colonoscopy: 05/11/2017 May Ngo RN documented in this encounter [facility] 12-02-2022 Miscellaneous Notes Spoke to patient's granddaughter Hardy, read message from Farhana Leos. Hardy stated understanding. Lulú Calderon LPN Small Rx of zofran sent in to be used very short-term only as needed. Recommend bland diet, small meals until symptoms improving Patients granddaughter called. Verified name and date of of patient. Patient had surgery today and just got home. She is nauseated. Hardy states they typically give her grandma something for nausea 30 minutes prior to pain medication and she was not sent home with anything. Prefers [facility] pharmacy in [place]. Please call Hardy when medication has been ordered. Madelyn Nair LPN documented in this encounter [facility] documented as of this encounter (statuses as of 12/10/2022) [facility] History of Past illness Narrative* Problem Noted Date Resolved Date Left inguinal hernia 12/02/2022 12/02/2022 Osteoarthritis of spine with radiculopathy, lumb ar region 03/18/2020 05/31/2021 Other spondylosis with radiculopathy, lumbar reg ion 02/28/2020 05/31/2021 Irritable bowel syndrome with constipation 09/1005/31/2021 Lumbar radiculopathy 04/12/2017 05/31/2021 Spondylosis of lumbar region without myelopathy or radiculopathy 03/23/2017 05/31/2021 Thoracic radiculopathy due t o degenerative joint disease of spine 12/01/2013 03/20/2019 Esophagitis, unspecified 11/18/2012 018 Chronic cholecystitis 11/14/2012 03/16/2018 Abdominal wall mass 11/14/2012 03/16/2018 Brachial neuritis or radiculitis NOS 11/24/2007 03/16/2018 Myalgia and myositis, unspecified 11/12/2005 03/23/2017 documented as of this encounter (statuses as of 12/23/2022) [facility] History of Past illness Narrative* Problem Noted Date Resolved Date Left inguinal hernia 12/02/2022 12/02/2022 Osteoarthritis of spine with radiculopathy, lumb ar region 03/18/2020 05/31/2021 Other spondylosis with radiculopathy, lumbar reg ion 02/28/2020 05/31/2021 Irritable bowel syndrome with constipation 09/1005/31/2021 Lumbar radiculopathy 04/12/2017 05/31/2021 Spondylosis of lumbar region without myelopathy or radiculopathy 03/23/2017 05/31/2021 Thoracic radiculopathy due t o degenerative joint disease of spine 12/01/2013 03/20/2019 Esophagitis, unspecified 11/18/2012 018 Chronic cholecystitis 11/14/2012 03/16/2018 Abdominal wall mass 11/14/2012 03/16/2018 Brachial neuritis or radiculitis NOS 11/24/2007 03/16/2018 Myalgia and myositis, unspecified 11/12/2005 03/23/2017 documented as of this encounter (statuses as of 01/05/2023) [facility] History of Past illness Narrative* Problem Noted Date Resolved Date Left inguinal hernia 12/02/2022 12/02/2022 Osteoarthritis of spine with radiculopathy, lumb ar region 03/18/2020 05/31/2021 Other spondylosis with radiculopathy, lumbar reg ion 02/28/2020 05/31/2021 Irritable bowel syndrome with constipation 09/1005/31/2021 Lumbar radiculopathy 04/12/2017 05/31/2021 Spondylosis of lumbar region without myelopathy or radiculopathy 03/23/2017 05/31/2021 Thoracic radiculopathy due t o degenerative joint disease of spine 12/01/2013 03/20/2019 Esophagitis, unspecified 11/18/2012 018 Chronic cholecystitis 11/14/2012 03/16/2018 Abdominal wall mass 11/14/2012 03/16/2018 Brachial neuritis or radiculitis NOS 11/24/2007 03/16/2018 Myalgia and myositis, unspecified 11/12/2005 03/23/2017 documented as of this encounter (statuses as of 01/07/2023) [facility] History of Past illness Narrative* Problem Noted Date Resolved Date Left inguinal hernia 12/02/2022 12/02/2022 Osteoarthritis of spine with radiculopathy, lumb ar region 03/18/2020 05/31/2021 Other spondylosis with radiculopathy, lumbar reg ion 02/28/2020 05/31/2021 Irritable bowel syndrome with constipation 09/1005/31/2021 Lumbar radiculopathy 04/12/2017 05/31/2021 Spondylosis of lumbar region without myelopathy or radiculopathy 03/23/2017 05/31/2021 Thoracic radiculopathy due t o degenerative joint disease of spine 12/01/2013 03/20/2019 Esophagitis, unspecified 11/18/2012 018 Chronic cholecystitis 11/14/2012 03/16/2018 Abdominal wall mass 11/14/2012 03/16/2018 Brachial neuritis or radiculitis NOS 11/24/2007 03/16/2018 Myalgia and myositis, unspecified 11/12/2005 03/23/2017 documented as of this encounter (statuses as of 02/02/2023) [facility] History of Past illness Narrative* Problem Noted Date Resolved Date Left inguinal hernia 12/02/2022 12/02/2022 Osteoarthritis of spine with radiculopathy, lumb ar region 03/18/2020 05/31/2021 Other spondylosis with radiculopathy, lumbar reg ion 02/28/2020 05/31/2021 Irritable bowel syndrome with constipation 09/1005/31/2021 Lumbar radiculopathy 04/12/2017 05/31/2021 Spondylosis of lumbar region without myelopathy or radiculopathy 03/23/2017 05/31/2021 Thoracic radiculopathy due t o degenerative joint disease of spine 12/01/2013 03/20/2019 Esophagitis, unspecified 11/18/2012 018 Chronic cholecystitis 11/14/2012 03/16/2018 Abdominal wall mass 11/14/2012 03/16/2018 Brachial neuritis or radiculitis NOS 11/24/2007 03/16/2018 Myalgia and myositis, unspecified 11/12/2005 03/23/2017 documented as of this encounter (statuses as of 03/22/2023) [facility] History of Past illness Narrative* Problem Noted Date Resolved Date Left inguinal hernia 12/02/2022 12/02/2022 Osteoarthritis of spine with radiculopathy, lumb ar region 03/18/2020 05/31/2021 Other spondylosis with radiculopathy, lumbar reg ion 02/28/2020 05/31/2021 Irritable bowel syndrome with constipation 09/1005/31/2021 Lumbar radiculopathy 04/12/2017 05/31/2021 Spondylosis of lumbar region without myelopathy or radiculopathy 03/23/2017 05/31/2021 Thoracic radiculopathy due t o degenerative joint disease of spine 12/01/2013 03/20/2019 Esophagitis, unspecified 11/18/2012 018 Chronic cholecystitis 11/14/2012 03/16/2018 Abdominal wall mass 11/14/2012 03/16/2018 Brachial neuritis or radiculitis NOS 11/24/2007 03/16/2018 Myalgia and myositis, unspecified 11/12/2005 03/23/2017 documented as of this encounter (statuses as of 03/23/2023) [facility] History of Past illness Narrative* Problem Noted Date Resolved Date Left inguinal hernia 12/02/2022 12/02/2022 Osteoarthritis of spine with radiculopathy, lumb ar region 03/18/2020 05/31/2021 Other spondylosis with radiculopathy, lumbar reg ion 02/28/2020 05/31/2021 Irritable bowel syndrome with constipation 09/1005/31/2021 Lumbar radiculopathy 04/12/2017 05/31/2021 Spondylosis of lumbar region without myelopathy or radiculopathy 03/23/2017 05/31/2021 Thoracic radiculopathy due t o degenerative joint disease of spine 12/01/2013 03/20/2019 Esophagitis, unspecified 11/18/2012 018 Chronic cholecystitis 11/14/2012 03/16/2018 Abdominal wall mass 11/14/2012 03/16/2018 Brachial neuritis or radiculitis NOS 11/24/2007 03/16/2018 Myalgia and myositis, unspecified 11/12/2005 03/23/2017 documented as of this encounter (statuses as of 04/13/2023) [facility] History of Past illness Narrative* Problem Noted Date Diagnosed Date Resolved Date Left inguinal hernia 12/02/2022 023 Osteoarthritis of spine with radiculopathy, lumbar region 03/18/2020 05/31/2021 Other spondylosis with radic ulopathy, lumbar region 02/28/2020 05/31/2021 Irritable bowel syndrome with constipation 09/10/2017 05/31/2021 Lumbar radiculopathy 04/12/2017 021 Spondylosis of lumbar region without myelopathy or radiculopathy 03/23/2017 05/31/2021 Thoracic radiculopathy due t o degenerative joint disease of spine 12/01/2013 03/20/2019 Esophagitis, unspecified 11/18/2012 Chronic cholecystitis 11/14/20122017 Abdominal wall mass 11/14/2012 03/16/20 18 Brachial neuritis or radiculitis NOS 11/24/2007 03/16/2018 Myalgia and myositis, unspecified 11/12/2005 03/23/2017 documented as of this encounter (statuses as of 06/16/2023) [facility] History of Past illness Narrative* Problem Noted Date Diagnosed Date Resolved Date Left inguinal hernia 12/02/2022 023 Osteoarthritis of spine with radiculopathy, lumbar region 03/18/2020 05/31/2021 Other spondylosis with radic ulopathy, lumbar region 02/28/2020 05/31/2021 Irritable bowel syndrome with constipation 09/10/2017 05/31/2021 Lumbar radiculopathy 04/12/2017 021 Spondylosis of lumbar region without myelopathy or radiculopathy 03/23/2017 05/31/2021 Thoracic radiculopathy due t o degenerative joint disease of spine 12/01/2013 03/20/2019 Esophagitis, unspecified 11/18/2012 Chronic cholecystitis 11/14/20122017 Abdominal wall mass 11/14/2012 03/16/20 18 Brachial neuritis or radiculitis NOS 11/24/2007 03/16/2018 Myalgia and myositis, unspecified 11/12/2005 03/23/2017 documented as of this encounter (statuses as of 06/18/2023) [facility] History of Past illness Narrative* Problem Noted Date Diagnosed Date Resolved Date Left inguinal hernia 12/02/2022 023 Osteoarthritis of spine with radiculopathy, lumbar region 03/18/2020 05/31/2021 Other spondylosis with radic ulopathy, lumbar region 02/28/2020 05/31/2021 Irritable bowel syndrome with constipation 09/10/2017 05/31/2021 Lumbar radiculopathy 04/12/2017 021 Spondylosis of lumbar region without myelopathy or radiculopathy 03/23/2017 05/31/2021 Thoracic radiculopathy due t o degenerative joint disease of spine 12/01/2013 03/20/2019 Esophagitis, unspecified 11/18/2012 Chronic cholecystitis 11/14/20122017 Abdominal wall mass 11/14/2012 03/16/20 18 Brachial neuritis or radiculitis NOS 11/24/2007 03/16/2018 Myalgia and myositis, unspecified 11/12/2005 03/23/2017 documented as of this encounter (statuses as of 06/28/2023) [facility] History of Past illness Narrative* Problem Noted Date Diagnosed Date Resolved Date Left inguinal hernia 12/02/2022 023 Osteoarthritis of spine with radiculopathy, lumbar region 03/18/2020 05/31/2021 Other spondylosis with radic ulopathy, lumbar region 02/28/2020 05/31/2021 Irritable bowel syndrome with constipation 09/10/2017 05/31/2021 Lumbar radiculopathy 04/12/2017 021 Spondylosis of lumbar region without myelopathy or radiculopathy 03/23/2017 05/31/2021 Thoracic radiculopathy due t o degenerative joint disease of spine 12/01/2013 03/20/2019 Esophagitis, unspecified 11/18/2012 Chronic cholecystitis 11/14/20122017 Abdominal wall mass 11/14/2012 03/16/20 18 Brachial neuritis or radiculitis NOS 11/24/2007 03/16/2018 Myalgia and myositis, unspecified 11/12/2005 03/23/2017 documented as of this encounter (statuses as of 06/28/2023) [facility] History of Past illness Narrative* Problem Noted Date Diagnosed Date Resolved Date Left inguinal hernia 12/02/2022 023 Osteoarthritis of spine with radiculopathy, lumbar region 03/18/2020 05/31/2021 Other spondylosis with radic ulopathy, lumbar region 02/28/2020 05/31/2021 Irritable bowel syndrome with constipation 09/10/2017 05/31/2021 Lumbar radiculopathy 04/12/2017 08/14/2 021 Spondylosis of lumbar region without myelopathy or radiculopathy 03/23/2017 05/31/2021 Thoracic radiculopathy due t o degenerative joint disease of spine 12/01/2013 03/20/2019 Esophagitis, unspecified 11/18/2012 Chronic cholecystitis 11/14/20122017 Abdominal wall mass 11/14/2012 03/16/20 18 Brachial neuritis or radiculitis NOS 11/24/2007 03/16/2018 Myalgia and myositis, unspecified 11/12/2005 03/23/2017 documented as of this encounter (statuses as of 07/10/2023) [facility] History of Past illness Narrative* Problem Noted Date Diagnosed Date Resolved Date Left inguinal hernia 12/02/2022 023 Fibromyalgia 07/20/2022 08/05/2023 Last Assessment & Plan: Assessment: Stable, on Tylenol PRN. Osteoarthritis of spine with radiculopathy, lumbar region 03/18/2020 05/31/2021 Other spondylosis with radic ulopathy, lumbar region 02/28/2020 05/31/2021 Resting tremor 02/26/2020 08/05/2023 Irritable bowel syndrome with constipation 09/10/2017 05/31/2021 Lumbar radiculopathy 04/12/2017 021 Spondylosis of lumbar region without myelopathy or radiculopathy 03/23/2017 05/31/2021 Thoracic radiculopathy due t o degenerative joint disease of spine 12/01/2013 03/20/2019 Esophagitis, unspecified 11/18/2012 Chronic cholecystitis 11/14/20122017 Abdominal wall mass 11/14/2012 03/16/20 18 Brachial neuritis or radiculitis NOS 11/24/2007 03/16/2018 Myalgia and myositis, unspecified 11/12/2005 03/23/2017 documented as of this encounter (statuses as of 08/05/2023) [facility] History of Past illness Narrative* Problem Noted Date Diagnosed Date Resolved Date Left inguinal hernia 12/02/2022 023 Fibromyalgia 07/20/2022 08/05/2023 Last Assessment & Plan: Assessment: Stable, on Tylenol PRN. Osteoarthritis of spine with radiculopathy, lumbar region 03/18/2020 05/31/2021 Other spondylosis with radic ulopathy, lumbar region 02/28/2020 05/31/2021 Resting tremor 02/26/2020 08/05/2023 Irritable bowel syndrome with constipation 09/10/2017 05/31/2021 Lumbar radiculopathy 04/12/2017 021 Spondylosis of lumbar region without myelopathy or radiculopathy 03/23/2017 05/31/2021 Thoracic radiculopathy due t o degenerative joint disease of spine 12/01/2013 03/20/2019 Esophagitis, unspecified 11/18/2012 Chronic cholecystitis 11/14/20122017 Abdominal wall mass 11/14/2012 03/16/20 18 Brachial neuritis or radiculitis NOS 11/24/2007 03/16/2018 Myalgia and myositis, unspecified 11/12/2005 03/23/2017 documented as of this encounter (statuses as of 08/07/2023) [facility] History of Past illness Narrative* Problem Noted Date Diagnosed Date Resolved Date Left inguinal hernia 12/02/2022 023 Fibromyalgia 07/20/2022 08/05/2023 Last Assessment & Plan: Assessment: Stable, on Tylenol PRN. Osteoarthritis of spine with radiculopathy, lumbar region 03/18/2020 05/31/2021 Other spondylosis with radic ulopathy, lumbar region 02/28/2020 05/31/2021 Resting tremor 02/26/2020 08/05/2023 Irritable bowel syndrome with constipation 09/10/2017 05/31/2021 Lumbar radiculopathy 04/12/2017 021 Spondylosis of lumbar region without myelopathy or radiculopathy 03/23/2017 05/31/2021 Thoracic radiculopathy due t o degenerative joint disease of spine 12/01/2013 03/20/2019 Esophagitis, unspecified 11/18/2012 Chronic cholecystitis 11/14/20122017 Abdominal wall mass 11/14/2012 03/16/20 18 Brachial neuritis or radiculitis NOS 11/24/2007 03/16/2018 Myalgia and myositis, unspecified 11/12/2005 03/23/2017 documented as of this encounter (statuses as of 08/10/2023) [facility] History of Past illness Narrative* Problem Noted Date Diagnosed Date Resolved Date Left inguinal hernia 12/02/2022 023 Fibromyalgia 07/20/2022 08/05/2023 Last Assessment & Plan: Assessment: Stable, on Tylenol PRN. Osteoarthritis of spine with radiculopathy, lumbar region 03/18/2020 05/31/2021 Other spondylosis with radic ulopathy, lumbar region 02/28/2020 05/31/2021 Resting tremor 02/26/2020 08/05/2023 Irritable bowel syndrome with constipation 09/10/2017 05/31/2021 Lumbar radiculopathy 04/12/2017 021 Spondylosis of lumbar region without myelopathy or radiculopathy 03/23/2017 05/31/2021 Thoracic radiculopathy due t o degenerative joint disease of spine 12/01/2013 03/20/2019 Esophagitis, unspecified 11/18/2012 Chronic cholecystitis 11/14/20122017 Abdominal wall mass 11/14/2012 03/16/20 18 Brachial neuritis or radiculitis NOS 11/24/2007 03/16/2018 Myalgia and myositis, unspecified 11/12/2005 03/23/2017 documented as of this encounter (statuses as of 09/08/2023) [facility] History of Past illness Narrative* Problem Noted Date Diagnosed Date Resolved Date Left inguinal hernia 12/02/2022 023 Fibromyalgia 07/20/2022 08/05/2023 Last Assessment & Plan: Assessment: Stable, on Tylenol PRN. Osteoarthritis of spine with radiculopathy, lumbar region 03/18/2020 05/31/2021 Other spondylosis with radic ulopathy, lumbar region 02/28/2020 05/31/2021 Resting tremor 02/26/2020 08/05/2023 Irritable bowel syndrome with constipation 09/10/2017 05/31/2021 Lumbar radiculopathy 04/12/2017 021 Spondylosis of lumbar region without myelopathy or radiculopathy 03/23/2017 05/31/2021 Thoracic radiculopathy due t o degenerative joint disease of spine 12/01/2013 03/20/2019 Esophagitis, unspecified 11/18/2012 Chronic cholecystitis 11/14/20122017 Abdominal wall mass 11/14/2012 03/16/20 18 Brachial neuritis or radiculitis NOS 11/24/2007 03/16/2018 Myalgia and myositis, unspecified 11/12/2005 03/23/2017 documented as of this encounter (statuses as of 09/20/2023) [facility]02-15-2023 NoteHNO ID: [id number] Author: Isa Alonzo APRN.CRNA Service: ? 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 Performed by: JAMES Indications and Patient Condition Indications for airway management: anesthesia Preoxygenated: yes anesthesia circuit Patient position: sniffing Method: asleep Cricoid Pressure: No Manual In-Line Stabilization: No Difficult Mask: No Final Airway Details Final airway type: endotracheal airway Final Endotracheal Airway: ETT Cuffed: yes Devices used: T[place]oya Endotracheal tube insertion site: oral Blade size: #3 ETT size (mm): 7.0 Measured from: lips Measurement (cm): 21 Placement verified by: capnometry Number of attempts at approach: 1 Ventilation between attempts: none Failed airway: no Unrecognized esophageal intubation: no Airway not difficult SIGNATURE: Isa Alonzo APRN.VEHICLE PAINTER PATIENT NAME: Katheryn Orantes DATE: December 02, 2022 TIME: 10:30 AM CSN: [id number] NotePatient Outreach (NETNAV) ORANTESKATHERYN CHOPRA ([id number]) 1950 F Date Time Provider Department 10/29/22 KEISHA ENGLAND During your visit today, we recorded the following information about you: Keisha England MA 10/29/2022 3:43 PM Signed POPULATION HEALTH NAVIGATION OUTREACH Action/I October 29, 2022 7:52 AM Patient is on HCC Gap list for the following HCC Gaps G20 - Parkinson's disease (HCC) - [id number] Last Billed 09/17/2022 SAMM with Sudarshan Mojica MD was 12.1.2021 One week follow up recommended Care Gaps due/ACO ~Influenza Outcome: LM on voicemail My chart message also sent Pt identified by name and : NO Outreach Outcome/Action Left message on voicemail My chart message also sent Did you use a PCP flex slot to schedule this appointment? N/A Reason for Outreach HCC or suspected condition Payer: Payor: MEDICARE / Plan: MEDICARE A AND B / Product Type: Medicare / Care Gap Reviewed:: Follow-up appointment Flu Vaccine Reminder: Reminder note to check Health Maintenance for items below Health Maintenance items due: COVID-19 VACCINE(1) Never done SHINGRIX VACCINE(2 of 3) due on 09/13/2013 INFLUENZA(1) due on 06/18/2022 ADVANCE DIRECTIVE DISCUSSION Never done Navigation Signature: Keisha England MA October 29, 2022 Allergies As of Date: 10/29/2022 Noted Allergy Reaction LYRICA (PREGABALIN) 11/24/2007 Comments: dizzy,sick to stomach MACROBID (NITROFURANTOIN MONOHYD/*04/12/2017 4 - Hives MORPHINE 07/01/2006 11 - Vomiting Date Reviewed: 10/26/2022 Reviewed by: Kayleigh Vallejo RN - Fully Assessed Reason for Visit: Population Health Navigation Outreach [3910] Cmt: HCC Gap Outreach Prescriptions as of 10/29/2022 - gabapentin (NEURONTIN) 300 mg capsule Take 1 capsule by mouth twice daily for 90 days. - lisinopril (ZESTRIL, PRINIVIL) 20 mg tablet TAKE 1 TABLET BY MOUTH EVERY DAY - polyethylene glycol 3350 (MIRALAX, GLYCOLAX) 17 gram/dose powder PLACE (ONE SCOOP) IN 8 OZ OF WATER DAILY UNTIL STOOLS ARE REGULAR UP TO TWO(2) WEEKS - omeprazole (PRILOSEC) 20 mg capsule Take 2 capsules by mouth daily before breakfast. 1/2 hr before meal. - acetaminophen (TYLENOL) 500 mg tablet Take 500 mg by mouth every 8 hours as needed. Problem List As Of Date 10/29/2022 Noted Resolved Myalgia and myositis, unspecified [[id number]] 11/12/2005 03/23/2017 Brachial neuritis or radiculitis NOS [M54.12] 11/24/2007 03/16/2018 Essential hypertension, benign [I10] 07/06/2012 Chronic cholecystitis [K81.1] 11/14/2012 03/16/2018 Abdominal wall mass [R22.2] 11/14/2012 03/16/2018 Esophagitis, unspecified [K20.90] 11/18/2012 03/16/2018 Benign neoplasm of rectum and anal canal [D12.8*11/18/2012 Thoracic radiculopathy due to degenerative join*12/01/2013 03/20/2019 Spondylosis of lumbar region without myelopathy*03/23/2017 05/31/2021 Scoliosis of thoracolumbar spine [M41.9] 03/23/2017 Chronic left SI joint pain [M53.3, G89.29] 03/23/2017 Lumbar radiculopathy [M54.16] 04/12/2017 05/31/2021 Irritable bowel syndrome with both constipation*04/19/2017 Renal calculus, bilateral [N20.0] 05/05/2017 Irritable bowel syndrome with constipation [K58*09/10/2017 05/31/2021 Situational depression [F43.21] 09/10/2017 DDD (degenerative disc disease), lumbar [M51.36]06/05/2019 Chronic gastritis without bleeding [K29.50] 06/05/2019 Resting tremor [G25.2] 02/26/2020 Other spondylosis with radiculopathy, lumbar re*02/28/2020 05/31/2021 Osteoarthritis of spine with radiculopathy, lum*03/18/2020 05/31/2021 Parkinson's disease (HCC) [G20] 05/31/2021 PMB (postmenopausal bleeding) [N95.0] 05/15/2022 Cervical stenosis (uterine cervix) [N88.2] 05/15/2022 Fibromyalgia [M79.7] 07/20/2022 Encounter Status:Closed by KEISHA ENGLAND on 10/29/22[facility]01-12-2023 NoteHNO ID: [id number] Author: Keisha England MA Service: ? Author Type: Final Operations Technician Type: Progress Notes Filed: 10/29/2022 3:43 PM Note Text: POPULATION HEALTH NAVIGATION OUTREACH Action/FYI October 29, 2022 7:52 AM Patient is on HCC Gap list for the following HCC Gaps G20 - Parkinson's disease (HCC) - [id number] Last Billed 09/17/2022 SAMM with Sudarshan Mojica MD was 12.1.2021 One week follow up recommended Care Gaps due/ACO ~Influenza Outcome: LM on voicemail My chart message also sent Pt identified by name and : NO Outreach Outcome/Action Left message on voicemail My chart message also sent Did you use a PCP flex slot to schedule this appointment? N/A Reason for Outreach HCC or suspected condition Payer: Payor: MEDICARE / Plan: MEDICARE A AND B / Product Type: Medicare / Care Gap Reviewed:: Follow-up appointment Flu Vaccine Reminder: Reminder note to check Health Maintenance for items below Health Maintenance items due: COVID-19 VACCINE(1) Never done SHINGRIX VACCINE(2 of 3) due on 09/13/2013 INFLUENZA(1) due on 06/18/2022 ADVANCE DIRECTIVE DISCUSSION Never done Navigation Signature: [facility] History of Present illness Narrative* Keisha England MA - 10/29/2022 7:52 AM EST POPULATION HEALTH NAVIGATION OUTREACH Action/FYI October 29, 2022 7:52 AM Patient is on HCC Gap list for the following HCC Gaps G20 - Parkinson's disease (HCC) - [id number] Last Billed 09/17/2022 SAMM with Sudarshan Mojica MD was 12.1.2021 One week follow up recommended Care Gaps due/ACO ~Influenza Outcome: LM on voicemail My chart message also sent Pt identified by name and : NO Outreach Outcome/Action Left message on voicemail My chart message also sent Did you use a PCP flex slot to schedule this appointment? N/A Reason for Outreach HCC or suspected condition Payer: Payor: MEDICARE / Plan: MEDICARE A AND B / Product Type: Medicare / Care Gap Reviewed:: Follow-up appointment Flu Vaccine Reminder: Reminder note to check Health Maintenance for items below Health Maintenance items due: COVID-19 VACCINE(1) Never done SHINGRIX VACCINE(2 of 3) due on 09/13/2013 INFLUENZA(1) due on 06/18/2022 ADVANCE DIRECTIVE DISCUSSION Never done Navigation Signature: Keisha England MA October 29, 2022 [facility] NoteHNO ID: [id number] Author: Karthikeyan Joseph MD Service: ? Author Type: Physician Type: Progress Notes Filed: 10/30/2022 7:17 AM Note Text: HISTORY AND PHYSICAL Katheryn Orantes 1950 REFERRING PHYSICIAN: Aretha Ann APRN.C* CHIEF COMPLAINT: Follow Up (hernia) HPI: Katheryn is a 72 year old female with a complaint of a bulge and discomfort in her left inguinal region. The patient notes discomfort in this area with lifting and straining. The symptoms have maintained, over the past few months. The patient notes no symptoms of bowel obstruction and denies nausea or vomiting. The patient was seen by her primary care physician who felt the patient has a hernia. Katheryn was referred for evaluation and treatment. The patient is being seen by me today at the request of Dr. Ann for my opinion and advice regarding Left inguinal hernia (primary encounter diagnosis). PAST MEDICAL HISTORY Diagnosis Date Chronic back pain pinched nerves in back Chronic left SI joint pain 03/23/2017 Essential hypertension, benign 07/06/2012 Fibromyalgia Hyperlipidemia Irritable bowel syndrome with both constipation and diarrhea 04/19/2017 Lumbar radiculopathy 04/12/2017 Renal calculus, right 04/19/2017 Scoliosis of thoracolumbar spine 03/23/2017 Situational depression 09/10/2017 Thoracic radiculopathy due to degenerative joint disease of spine 12/01/2013 PAST SURGICAL HISTORY Procedure Laterality Date COLONOSCOPY W/BIOPSY SINGLE/MULTIPLE 11/18/2012 COLONOSCOPY W/BIOPSY SINGLE/MULTIPLE 05/11/2017 Normal colonoscopy, normal terminal ileum-unremarkable biopsies D+C 01/16/2021 Hysteroscopy, biopsy urethral caruncle EGD 10/09/2020 EGD TRANSORAL BIOPSY SINGLE/MULTIPLE 05/11/2017 Mild reflux otherwise normal-unremarkable biopsies ESOPHAGOGASTRODUODENOSCOPY TRANSORAL DIAGNOSTIC 07/05/2018 EGD LAPAROSCOPY SURG CHOLECYSTECTOMY 12/01/2012 with ventral hernia repair PAST SURGICAL HISTORY OF N/A 07/24/2022 Hysteroscopy with DANDC and Examination under anesthesia Current Outpatient Medications Medication Sig gabapentin (NEURONTIN) 300 mg capsule Take 1 capsule by mouth twice daily for 90 days. lisinopril (ZESTRIL, PRINIVIL) 20 mg tablet TAKE 1 TABLET BY MOUTH EVERY DAY polyethylene glycol 3350 (MIRALAX, GLYCOLAX) 17 gram/dose powder PLACE (ONE SCOOP) IN 8 OZ OF WATER DAILY UNTIL STOOLS ARE REGULAR UP TO TWO(2) WEEKS omeprazole (PRILOSEC) 20 mg capsule Take 2 capsules by mouth daily before breakfast. 1/2 hr before meal. acetaminophen (TYLENOL) 500 mg tablet Take 500 mg by mouth every 8 hours as needed. No current facility-administered medications for this visit. ALLERGIES: Lyrica [Pregabalin], Macrobid [Nitrofurantoin Monohyd/M-Cryst], and Morphine PERSONAL HISTORY: Social History Tobacco Use Smoking status: Never Smokeless tobacco: Never Vaping Use Vaping Use: Never used Substance Use Topics Alcohol use: No Drug use: No FAMILY HISTORY: FAMILY HISTORY Problem Relation Age of Onset Ischemic Heart Disease Father FATHER SIDE OF FAMILY HISTORY OF HEART ATTACKS REVIEW OF SYMPTOMS: The review of systems data was entered by the nurse and reviewed by me There are no exam notes on file for this visit. PHYSICAL EXAMINATION: General: The patient is 72 year old female, well nourished, well hydrated in no acute distress. The patient is oriented to time, place, and person. VITALS: Weight 59 kg (130 lb). Body mass index is 23.03 kg/m?. HEENT: Normal cephalic, ataumatic, pupils are equally round, sclera are anicteric, mucous membranes are moist, oropharynx is clear. Neck has no masses, asymmetry or lymphadenopathy. Thyroid is unremarkable. Respiratory: Clear to auscultation and percussion. Normal respiratory excursion and pattern. Cardiac: Examination is regular rate and rhythm. Abdominal exam: Soft, nontender, with no palpable masses. No hepatosplenomegaly. A small, reducible left inguinal hernia, no right inguinal or umbilical hernias are noted Rectal exam: exam deferred Extremities: no clubbing, cyanosis or edema. No adenopathy. Other: LABORATORY VALUES: As Noted RADIOLOGIC STUDIES: As Noted Assessment IMPRESSION: left inguinal hernia PLAN: My plan is to perform a laparoscopic left inguinal hernia repair with mesh. The planned surgical procedure was discussed extensively with the patient. The risks, benefits, anticipated outcomes and possible complications were mentioned. Katheryn undersands that all hernia repair surgery has a chance of recurrence and/or chronic post operative pain. My staff has also explained the procedure in understandable terms and the patient was given the option to take printed material concerning the planned procedure. The patient had the opportunity to ask questions concerning the planned procedure. The patient freely consents to the planned procedure. My findings have been communicated to Dr. Ann via (more content not included)...[facility]01-09-2023 History of Present illness Narrative* Karthikeyan Joseph MD - 10/26/2022 4:27 PM EST HISTORY AND PHYSICAL Katheryn Orantes 1950 REFERRING PHYSICIAN: Aretha Ann APRN.C* CHIEF COMPLAINT: Follow Up (hernia) HPI: Katheryn is a 72 year old female with a complaint of a bulge and discomfort in her left inguinalregion. The patient notes discomfort in this area with lifting and straining. The symptoms have maintained, over the past few months. The patient notes no symptoms of bowel obstruction and denies nausea or vomiting. The patient was seen by her primary care physician who felt the patient has a hernia. Katheryn was referred for evaluation and treatment. The patient is being seen by me today at the request of Dr. Ann for my opinion and advice regarding Left inguinal hernia (primary encounter diagnosis). PAST MEDICAL HISTORY Diagnosis Date Chronic back pain pinched nerves in back Chronic left SI joint pain 03/23/2017 Essential hypertension, benign 07/06/2012 Fibromyalgia Hyperlipidemia Irritable bowel syndrome with both constipation and diarrhea 04/19/2017 Lumbar radiculopathy 04/12/2017 Renal calculus, right 04/19/2017 Scoliosis of thoracolumbar spine 03/23/2017 Situational depression 09/10/2017 Thoracic radiculopathy due to degenerative joint disease of spine 12/01/2013 PAST SURGICAL HISTORY Procedure Laterality Date COLONOSCOPY W/BIOPSY SINGLE/MULTIPLE 11/18/2012 COLONOSCOPY W/BIOPSY SINGLE/MULTIPLE 05/11/2017 Normal colonoscopy, normal terminal ileum-unremarkable biopsies D+C 01/16/2021 Hysteroscopy, biopsy urethral caruncle EGD 10/09/2020 EGD TRANSORAL BIOPSY SINGLE/MULTIPLE 05/11/2017 Mild reflux otherwise normal-unremarkable biopsies ESOPHAGOGASTRODUODENOSCOPY TRANSORAL DIAGNOSTIC 07/05/2018 EGD LAPAROSCOPY SURG CHOLECYSTECTOMY 12/01/2012 with ventral hernia repair PAST SURGICAL HISTORY OF N/A 07/24/2022 Hysteroscopy with D&C and Examination under anesthesia Current Outpatient Medications Medication Sig gabapentin (NEURONTIN) 300 mg capsule Take 1 capsule by mouth twice daily for 90 days. lisinopril (ZESTRIL, PRINIVIL) 20 mg tablet TAKE 1 TABLET BY MOUTH EVERY DAY polyethylene glycol 3350 (MIRALAX, GLYCOLAX) 17 gram/dose powder PLACE (ONE SCOOP) IN 8 OZ OF WATERDAILY UNTIL STOOLS ARE REGULAR UP TO TWO(2) WEEKS omeprazole (PRILOSEC) 20 mg capsule Take 2 capsules by mouth daily before breakfast. 1/2 hr before meal. acetaminophen (TYLENOL) 500 mg tablet Take 500 mg by mouth every 8 hours as needed. No current facility-administered medications for this visit. ALLERGIES: Lyrica [Pregabalin], Macrobid [Nitrofurantoin Monohyd/M-Cryst], and Morphine PERSONAL HISTORY: Social History Tobacco Use Smoking status: Never Smokeless tobacco: Never Vaping Use Vaping Use: Never used Substance Use Topics Alcohol use: No Drug use: No FAMILY HISTORY: FAMILY HISTORY Problem Relation Age of Onset Ischemic Heart Disease Father FATHER SIDE OF FAMILY HISTORY OF HEART ATTACKS REVIEW OF SYMPTOMS: The review of systems data was entered by the nurse and reviewed by me There are no exam notes on file for this visit. PHYSICAL EXAMINATION: General: The patient is 72 year old female, well nourished, well hydrated in no acute distress. Thepatient is oriented to time, place, and person. VITALS: Weight 59 kg (130 lb). Body mass index is 23.03 kg/m . HEENT: Normal cephalic, ataumatic, pupils are equally round, sclera are anicteric, mucous membranesare moist, oropharynx is clear. Neck has no masses, asymmetry or lymphadenopathy. Thyroid is unremarkable. Respiratory: Clear to auscultation and percussion. Normal respiratory excursion and pattern. Cardiac: Examination is regular rate and rhythm. Abdominal exam: Soft, nontender, with no palpable masses. No hepatosplenomegaly. A small, reducibleleft inguinal hernia, no right inguinal or umbilical hernias are noted Rectal exam: exam deferred Extremities: no clubbing, cyanosis or edema. No adenopathy. Other: LABORATORY VALUES: As Noted RADIOLOGIC STUDIES: As Noted Assessment IMPRESSION: left inguinal hernia PLAN: My plan is to perform a laparoscopic left inguinal hernia repair with mesh. The planned surgical procedure was discussed extensively with the patient. The risks, benefits, anticipated outcomes and possible complications were mentioned. Katheryn undersands that all hernia repair surgery has a chance of recurrence and/or chronic post operative pain. My staff has also explained the procedure in understandable terms and the patient was given the option to take printed material concerning the planned procedure. The patient had the opportunity to ask questions concerning the planned procedure. The patient freely consents to the planned procedure. My findings have been communicated to Dr. Ann via shared medical record. This note will be forwarded to Dr. Sudarshan Mojica MD. Diagnoses: (K40.90) Left inguinal hernia (primary encounter diagnosis) Anticipated CPT Code: laparoscopic left inguinal hernia repair with mesh - [id number] Anticipated Anesthetic: General Patient weight: Weight 59 kg (130 lb). BMI: Body mass index is 23.03 kg/m . Planned antibiotic: Ancef 2gm IVPB population health coach to OR SCDs needed - Yes Return to Clinic: The patient is instructed to follow-up with me 1 week post operatively. Karthikeyan Joseph III, MD documented in this encounter[facility] Miscellaneous Notes* Telephone Encounter - Giaan Banuelos LPN - 09/18/2022 9:25 AM EST Spoke with patient and she says that both because of her pain and Parkinson's. She is afraid she isgoing to fall. Advised her that we are waiting on her x-ray result. Also told her to be sure she keeps pain management procedure scheduled next week. If she is interested in trying something different for her Parkinson's she needs to notify [facility] and let them know. They had stopped baclofen she was given due to causing her to have hallucinations. Patient verbalizes understanding. * Telephone Encounter - Sudarshan Mojica MD - 09/18/2022 9:03 AM EST Can she barely walk due to the pain or is her parkinson's worse? Are they still managing ok at home? Her xray is still pending. Will call as soon as results are back. * Telephone Encounter - Keisha Draper Ma - 09/18/2022 8:58 AM EST Spoke to patient who said not feeling any better and can barely walk yesterday/today. Patient awareof all lab results Keisha Draper Ma * Telephone Encounter - Sudarshan Mojica MD - 09/18/2022 8:[address] was negative. (No signs of trauma or enlarged bilie ducts) One liver enzyme is borderline high No anemia. Her urine culture is still pending but urine looks ok. Pancreatic enzyme is minimally up of ? Significance. How is she feeling today? documented in this encounterSt[facility]12[facility]22 History of Present illness Narrative* Sudarshan Mojica MD - 09/17/2022 10:53 AM EST Patient presents with: 6 Month Exam HPI: Patient presents today for office visit for follow up. HOSPITAL/ER FOLLOW UP: Reason for visit: nausea/vomiting Which facility: [facility] Date of visit: 09/02/22-09/03 Diagnosis: gastroentritis Testing done: CT head/abd. Fell at home. Did not lose consciousness or hit head. [place] it was a gastroenteritis. [place] better after. Current symptoms: has some pain in her right upper abd to her back. Did have her gallbladder operated on. Feels like her gallbladder did.no further vomiting. She says her pain is worse in her back. Bending makes the pain worse. No black or bloody stools. Had some diarrhea last week. Now better. Has a hx of ibs. Also has a hx of esophagitis on previous egd in 2018. Had normal colonoscopy in 2017. No change with eating or moving bowels No urinary symptoms Was anemic as well. NEURO: Stopped baclofen reports hallucinations when she was taking it. [place] reports that Parkinsons is worse. HYPERTENSION:well controlled. No chest pain or shortness of breath. GERD: Taking omeprazole as ordered. Seeing Dr. Tam, Dr Ohara and Dr. Lopes. Did see Dr Yin as well. MEDICATIONS: Current Outpatient Medications Medication Sig baclofen (LIORESAL) 10 mg tablet Take 1 tablet by mouth twice daily. gabapentin (NEURONTIN) 300 mg capsule Take 1 capsule by mouth twice daily for 90 days. lisinopril (ZESTRIL, PRINIVIL) 20 mg tablet TAKE 1 TABLET BY MOUTH EVERY DAY polyethylene glycol 3350 (MIRALAX, GLYCOLAX) 17 gram/dose powder PLACE (ONE SCOOP) IN 8 OZ OF WATERDAILY UNTIL STOOLS ARE REGULAR UP TO TWO(2) WEEKS omeprazole (PRILOSEC) 20 mg capsule Take 2 capsules by mouth daily before breakfast. 1/2 hr before meal. acetaminophen (TYLENOL) 500 mg tablet Take 500 mg by mouth every 8 hours as needed. No current facility-administered medications for this visit. ALLERGIES: ALLERGIES Allergen Reactions Lyrica [Pregabalin] dizzy,sick to stomach Macrobid [Nitrofura* Hives Morphine Vomiting PAST MEDICAL HISTORY Diagnosis Date Chronic back pain pinched nerves in back Chronic left SI joint pain 03/23/2017 Essential hypertension, benign 07/06/2012 Fibromyalgia Hyperlipidemia Irritable bowel syndrome with both constipation and diarrhea 04/19/2017 Lumbar radiculopathy 04/12/2017 Renal calculus, right 04/19/2017 Scoliosis of thoracolumbar spine 03/23/2017 Situational depression 09/10/2017 Thoracic radiculopathy due to degenerative joint disease of spine 12/01/2013 PAST SURGICAL HISTORY Procedure Laterality Date COLONOSCOPY W/BIOPSY SINGLE/MULTIPLE 11/18/2012 COLONOSCOPY W/BIOPSY SINGLE/MULTIPLE 05/11/2017 Normal colonoscopy, normal terminal ileum-unremarkable biopsies D+C 01/16/2021 Hysteroscopy, biopsy urethral caruncle EGD 10/09/2020 EGD TRANSORAL BIOPSY SINGLE/MULTIPLE 05/11/2017 Mild reflux otherwise normal-unremarkable biopsies ESOPHAGOGASTRODUODENOSCOPY TRANSORAL DIAGNOSTIC 07/05/2018 EGD LAPAROSCOPY SURG CHOLECYSTECTOMY 12/01/2012 with ventral hernia repair PAST SURGICAL HISTORY OF N/A 07/24/2022 Hysteroscopy with D&C and Examination under anesthesia FAMILY HISTORY Problem Relation Age of Onset Ischemic Heart Disease Father FATHER SIDE OF FAMILY HISTORY OF HEART ATTACKS Social History Tobacco Use Smoking status: Never Smokeless tobacco: Never Vaping Use Vaping Use: Never used Substance Use Topics Alcohol use: No Drug use: No Reviewed current medications, allergies, past medical history, surgical history, family history andsocial history today. REVIEW OF SYSTEMS All other reviewed and negative other than HPI. VITALS: BP 122/72 Pulse 88 Wt 58.5 kg (129 lb) SpO2 94% BMI 22.85 kg/m Last 4 Encounter Wt Readings: Date: Wt: 07/31/2022 59 kg (130 lb) 07/17/2022 59 kg (130 lb) 06/23/2022 57.6 kg (127 lb) 05/13/2022 54.9 kg (121 lb) PHYSICAL EXAMINATION: General appearance: Well appearing, alert, in no acute distress, well-hydrated, well nourished. Skin: Skin color, texture, turgor normal, no suspicious rashes or lesions Head: Normocephalic, no masses, lesions, tenderness or abnormalities Back: tender over posterior ribs and spine on back. Lungs: Lungs clear to auscultation. No wheezing, rhonchi, rales Heart: RRR without murmur, gallop, or rubs. No ectopy Abdomen: definite right upper quadrant pain. Some guarding. No rebound. Bowel sounds positive. Extremities: No deformities, edema, skin discoloration, clubbing or cyanosis. Good capillary refill. ASSESSMENT/PLAN: 1. Essential hypertension, benign - ICD9: 401.1, ICD10: I10 (primary diagnosis) - good control - Goal of BP <130/80 - CBC + DIFF - COMP METABOLIC PANEL - LIPID PANEL BASIC - LIPID PANEL, NONFASTING 2. Parkinson's disease (HCC) - ICD9: 332.0, ICD10: G20 - see neuro 3. Cervical stenosis (uterine cervix) - ICD9: 622.4, ICD10: N88.2 - per pain management. 4. DDD (degenerative disc disease), lumbar - ICD9: 722.52, ICD10: M51.36 - as above. 5. RUQ pain - ICD9: 789.01, ICD10: R10.11 - given worsening pain after fall, check ct to rule out worsening trauma, bleeding etc. Do stat. Doxray of ribs as well. Red flags for re-assessment reviewed with patient in detail. - LIPASE BLD - URINALYSIS, WITH MICROSCOPIC - URINE CULTURE - CT ABD/PEL W IVCON - IV CONTRAST (RADIOLOGY PROCEDURE) - ENTERIC CONTRAST (RADIOLOGY PROCEDURE) - CBC + DIFF - BASIC METABOLIC PNL - HEPATIC FUNCTION PNL - CT ABD/PEL W IVCON - IV CONTRAST (RADIOLOGY PROCEDURE) - ENTERIC CONTRAST (RADIOLOGY PROCEDURE) - XR RIBS/CHEST 3V AP RIB/OBLS/CXR RIGHT 6. Upper back pain - ICD9: 724.5, ICD10: M54.9 - XR RIBS/CHEST 3V AP RIB/OBLS/CXR RIGHT 7. Anemia, unspecified type - ICD9: 285.9, ICD10: D64.9 - IRON + TIBC - VITAMIN B12 BLOOD - FOLATE SERUM - FERRITIN BLD - CT ABD/PEL W IVCON - IV CONTRAST (RADIOLOGY PROCEDURE) - ENTERIC CONTRAST (RADIOLOGY PROCEDURE) - CBC + DIFF - BASIC METABOLIC PNL - CT ABD/PEL W IVCON - IV CONTRAST (RADIOLOGY PROCEDURE) - ENTERIC CONTRAST (RADIOLOGY PROCEDURE) 8. Fall, subsequent encounter - ICD9: V58.89, E888.9, ICD10: W19.XXXD - CT ABD/PEL W IVCON - IV CONTRAST (RADIOLOGY PROCEDURE) - ENTERIC CONTRAST (RADIOLOGY PROCEDURE) - CBC + DIFF - BASIC METABOLIC PNL - CT ABD/PEL W IVCON - IV CONTRAST (RADIOLOGY PROCEDURE) - ENTERIC CONTRAST (RADIOLOGY PROCEDURE) Sudarshan Mojica MD RTO in one week documented in this encounterSt[facility] History of Present illness Narrative* Racheal Clemens, CAFE HELPER.EMPLOYMENT LAW ATTORNEY - 08/27/2022 3:29 PM EST SUBJECTIVE: Katheryn Orantes presents to [facility] for a follow up appointment for follow up Since the last visit, Katheryn Orantes states the pain has been worsening. Current pain intensity is6 on a scale of 0-10. Pain located in abdomen and lower back area and radiates down the left lower extremity. Pain described as muscle spasms and like someone is punching my stomach. The patient Denies numbness and tingling. Symptoms interfere with physical activity, walking, sleeping, sitting, bathing, driving, cooking, household cleaning, reaching for shelves, lifting, and social activities. Pain is exacerbated by sitting too long or riding in the car. Pain is mitigated by lidocaine patches. The patient is not currently receiving medications through the [facility]. REVIEW OF SYSTEMS: Constitutional: (-) Weight Gain (-) Weight Loss (-) Fatigue Cardiovascular: (-) hx heart surgery (-) Pacemaker Respiratory: (-) Shortness of Breath (-) Cough (-) Snoring Gastrointestinal: (-) Incontinence (-) Diarrhea (-) Constipation (-) Nausea/Vomiting Endocrine: (-) Thyroid Disorder (-) Diabetes Hematologic: (-) Prolonged Bleeding (-) Easy Bruising Genitourinary: (-) Incontinence (-) Frequency (-) Urinary Urgency Skin: (-) Open sores/wound Neurologic: (-) Headache (-) Double Vision Psychiatric: (-) Depression (-) Anxiety (-) Personal History of Alcohol or Substance Abuse (-) Family History of Alcohol or Substance Abuse CHIEF COMPLAINT:Patient presents with: Back Pain OBJECTIVE: Pulse 82 SpO2 100% PHYSICAL EXAMINATION: General appearance: Well appearing, in no acute distress, alert and oriented x3 Skin: Skin color, texture, turgor normal, no rashes or lesions Neck: No pain to palpation over the cervical paraspinous muscles. No pain with neck flexion, extension, or lateral flexion Cardiovascular: Regular, rate and rhythm Lungs: Normal respiratory rate and rhythm, Lungs clear to auscultation Back: limited range of motion with pain reproduction. Facet:pos bilateral lumbar facet loading Spine: Reports Tenderness on palpation: Lumbar- axial Extremities: No deformities, edema, or skin discoloration. Good capillary refill. Musculoskeletal: No Joint pain, no edema , no extremity tenderness Neuro: No loss of sensation is noted. Motor skills intact Station and Gait: severe gait disturbance (can walk only with assistance) Motor: Displays weakness of the LEs Trigger points: lumbosacral spine muscles. ASSESSMENT: Assessment : Patient presents for follow-up visit. She is accompanied with her daughter Patient presents in a wheelchair Patient has a chronic history of lower back pain. She is experiencing a lot of muscle spasms Patient previously had a right L4-5 transforaminal injection on 08-21-2021 and reports no improvement She reports her pain is predominantly in the low back. Dr. Tam previously recommended a bilateral L4-5-S1 facet injection. This was not previously done. Patient would like to move forward with getting this scheduled Patient's has essential resting tremor predominantly in the right upper extremity Patient reports that she is seen by a neurologist and previously diagnosed with Parkinson's I cannot find any neurology notes. Discussed with daughter about seeing neurologist in [place] for her Parkinson's Encounter Diagnosis ICD-10-CM 1. Facet arthropathy M47.819 NJX DX/THER AGT PVRT FACET JT LMBR/SAC 1 LEVEL NJX DX/THER AGT PVRT FACET JT LMBR/SAC 2ND LEVEL 2. Lumbosacral spondylosis without myelopathy M47.817 NJX DX/THER AGT PVRT FACET JT LMBR/SAC 1 LEVEL NJX DX/THER AGT PVRT FACET JT LMBR/SAC 2ND LEVEL 3. Myalgia M79.10 4. Fibromyalgia M79.7 5. Adolescent idiopathic scoliosis of lumbar region M41.126 6. Other chronic pain G89.29 PDMP website checked and validated. All prescriptions have been APPROPRIATELY filled. No suspiciousactivity was identified. 08/27/2022 by Racheal Clemens APRN.KHALIF Narcotic Agreement reviewed and signed?: N/A on August 27, 2022 The pain panel was N/A PLAN: Injection history was reviewed. Medication use and compliance were reviewed. 1. Reviewed procedural instruction. Handout given 2. The following approved medication requests have been transmitted electronically. Requested Prescriptions Signed Prescriptions Disp Refills baclofen (LIORESAL) 10 mg tablet 60 tablet 1 Sig: Take 1 tablet by mouth twice daily. 3. Interventional procedure options discussed. Ordered and scheduled bilateral L4, 5, S1 lumbar facet injections 4. Encouraged regular home exercise program. 5) instructed daughter to send a [employer] message 2 weeks after the procedure to report the percentage of improvement. If improvement over 50% we will proceed with repeat facet injection and possibly consider RFA's I spent a total of 30 minutes on the date of the service which included preparing to see the patient, [id number] patient care, completing clinical documentation, performing a medically appropriate examination, and ordering medications, tests, or procedures. The above plan and management options were discussed at length with patient. Patient is in agreement with the above and verbalized understanding. Racheal Clemens APRN, KHALIF August 27, 2022 documented in this encounterSt. [facility]11-04-[facility]22 Miscellaneous Notes* Telephone Encounter - Isa Shelley - 08/21/2022 2:33 PM EDT Patient already scheduled. Call not needed. * Telephone Encounter - Sophia Sanchez RN - 08/21/2022 1:59 PM EDT Patient's granddaughter left voicemail 08/20/2022 at 1622 Calling to make appointment for patient Call back number: [phone] documented in this encounterSt. [facility]10-16-[facility]22 Miscellaneous Notes* Telephone Encounter - Vania Vigil MA - 08/02/2022 10:44 AM EDT Pt was notified of the results. Pt verbalized understanding. Vania Vigil MA * Telephone Encounter - Sandra Gibbs APRN.CNP - 08/02/2022 7:56 AM EDT Please inform patient that her urine culture revealed mix growth, which can occur at time of collection. She can continue taking the antibiotic if her symptoms are improving. She needs to follow up with her primary care doctor to provide another specimen and ensure that theblood has resolved. documented in this encounterSt. [facility]10-14-[facility]22 History of Present illness Narrative* Odell Baron APRN.KHALIF - 07/31/2022 4:27 PM EDT Subjective HPI A nontoxic appearing female presents to urgent care with chief complaint of possible UTI. Duration of symptoms 3 days. Associated symptoms dysuria, frequency, and urgency. Patient has history of UTIsin past with similar signs and symptoms. Patient denies the use of any tohb-ifi-jzqozny medicationsor home remedies for symptom management. Patient states pain is a 3/10. Patient denies any fevers, new flank pain, abdominal pain, nausea, vomiting, vaginal discharge, or urological abnormalities. Did have a hysteroscope done approximately 10 days ago. Past medical history prescription medication use allergies reviewed. .Patient presents with: UTI: Low back pain, burning with urination x1 week, after hysteroscopy PAST MEDICAL HISTORY Diagnosis Date Chronic back pain pinched nerves in back Chronic left SI joint pain 03/23/2017 Essential hypertension, benign 07/06/2012 Fibromyalgia Hyperlipidemia Irritable bowel syndrome with both constipation and diarrhea 04/19/2017 Lumbar radiculopathy 04/12/2017 Renal calculus, right 04/19/2017 Scoliosis of thoracolumbar spine 03/23/2017 Situational depression 09/10/2017 Thoracic radiculopathy due to degenerative joint disease of spine 12/01/2013 PAST SURGICAL HISTORY Procedure Laterality Date COLONOSCOPY W/BIOPSY SINGLE/MULTIPLE 11/18/2012 COLONOSCOPY W/BIOPSY SINGLE/MULTIPLE 05/11/2017 Normal colonoscopy, normal terminal ileum-unremarkable biopsies D+C 01/16/2021 Hysteroscopy, biopsy urethral caruncle EGD 10/09/2020 EGD TRANSORAL BIOPSY SINGLE/MULTIPLE 05/11/2017 Mild reflux otherwise normal-unremarkable biopsies ESOPHAGOGASTRODUODENOSCOPY TRANSORAL DIAGNOSTIC 07/05/2018 EGD LAPAROSCOPY SURG CHOLECYSTECTOMY 12/01/2012 with ventral hernia repair ALLERGIES Lyrica [Pregabalin], Macrobid [Nitrofurantoin Monohyd/M-Cryst], and Morphine MEDICATIONS oxyCODONE IR (ROXICODONE) 5 mg immediate release tablet Take 1 tablet by mouth every 8 hours as needed for pain. amantadine HCl (SYMMETREL) 100 mg capsule Take 1 capsule by mouth once daily. HYDROcodone-acetaminophen (NORCO) 5-325 mg per tablet Take 0.5 tablets by mouth every 8 hours as needed for pain. miSOPROStol (CYTOTEC) 200 mcg tablet Take 2 tablets by mouth at bedtime the night before procedure miSOPROStol (CYTOTEC) 200 mcg tablet Take 2 tablets by mouth at bedtime 2 nights prior to procedureand take 2 tablets by mouth at bedtime the night before procedure lisinopril (ZESTRIL, PRINIVIL) 20 mg tablet TAKE 1 TABLET BY MOUTH EVERY DAY polyethylene glycol 3350 (MIRALAX, GLYCOLAX) 17 gram/dose powder PLACE (ONE SCOOP) IN 8 OZ OF WATERDAILY UNTIL STOOLS ARE REGULAR UP TO TWO(2) WEEKS acetaminophen (TYLENOL) 500 mg tablet Take 500 mg by mouth every 8 hours as needed. gabapentin (NEURONTIN) 300 mg capsule Take 1 capsule by mouth twice daily for 90 days. omeprazole (PRILOSEC) 20 mg capsule Take 2 capsules by mouth daily before breakfast. 1/2 hr before meal. FAMILY HISTORY Problem Relation Age of Onset Ischemic Heart Disease Father FATHER SIDE OF FAMILY HISTORY OF HEART ATTACKS Social History Tobacco Use Smoking status: Never Smokeless tobacco: Never Vaping Use Vaping Use: Never used Substance Use Topics Alcohol use: No Drug use: No BP 128/86 Pulse 93 Temp 36.8 C (98.3 F) Resp 20 Wt 59 kg (130 lb) SpO2 98% BMI 23.03 kg/m Review of Systems Constitutional: Negative for chills, fever and malaise/fatigue. HENT: Negative for congestion, ear discharge, ear pain, sinus pain and sore throat. Eyes: Negative for blurred vision, pain, discharge and redness. Respiratory: Negative for cough, hemoptysis, sputum production, shortness of breath, wheezing and stridor. Cardiovascular: Negative for chest pain. Gastrointestinal: Negative for abdominal pain, diarrhea, nausea and vomiting. Genitourinary: Positive for dysuria, frequency and urgency. Negative for flank pain and hematuria. Musculoskeletal: Negative for myalgias. Skin: Negative for itching and rash. Neurological: Negative for dizziness and headaches. Objective Physical Exam Constitutional: General: She is not in acute distress. Appearance: She is not diaphoretic. HENT: Head: Normocephalic. Mouth/Throat: Mouth: Mucous membranes are moist. Pharynx: Oropharynx is clear. No oropharyngeal exudate or posterior oropharyngeal erythema. Eyes: Conjunctiva/sclera: Conjunctivae normal. Pupils: Pupils are equal, round, and reactive to light. Cardiovascular: Rate and Rhythm: Normal rate and regular rhythm. Heart sounds: Normal heart sounds. Pulmonary: Effort: Pulmonary effort is normal. No tachypnea, accessory muscle usage or respiratory distress. Breath sounds: Normal breath sounds. No stridor. No wheezing, rhonchi or rales. Abdominal: Palpations: Abdomen is soft. Tenderness: There is no abdominal tenderness. There is no guarding or rebound. Musculoskeletal: Cervical back: Normal range of motion and neck supple. No rigidity or tenderness. Lymphadenopathy: Cervical: No cervical adenopathy. Skin: General: Skin is warm and dry. Neurological: Mental Status: She is alert and oriented to person, place, and time. ASSESSMENT/PLAN: 1. Dysuria - ICD9: 788.1, ICD10: R30.0 - UA DIP, URINE (POC) - URINE CULTURE Blood leukocytes noted on urine dip. Will be placed on Keflex. Patient will follow up with RFID TECHNICIAN on Wednesday if symptoms are not improving. Red flags for prompt reevaluation discussed with the patient/granddaughter. Patient was educated on supportive therapies. Patient will follow up with primary care provider as needed. Patient was instructed to immediately proceed to emergency room for any new, worsening, or symptoms lasting longer than anticipated. The patient's clinical presentation is otherwise unremarkable at this time. Based on exam and clinical finding, the patient is stable for discharge. Plan of care was discussed with patient. Patient verbalizes understanding and agrees to plan of care. This note was generated using DataSphere software. It may contain errors in wording, punctuation, or spelling. Odell Baron APRN.KHALIF documented in this encounterSt. [facility]10-07-[facility]22 NoteHNO ID: [id number] Author: Charis Corley MD Service: ? 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 Staffing Performed by: anesthesiologist and resident Indications and Patient Condition Indications for airway management: anesthesia Preoxygenated: yes anesthesia circuit Patient position: sniffing Method: asleep Cricoid Pressure: No Manual In-Line Stabilization: No Difficult Mask: No Final Airway Details Final airway type: supraglottic airway Number of attempts at approach: 1 Final Supraglottic Airway: i-gel Size 3 Seal Adequate: yes Failed airway: no Unrecognized esophageal intubation: no Airway not difficult SIGNATURE: Charis Corley MD PATIENT NAME: Katheryn Orantes DATE: July 24, 2022 TIME: 5:03 PM CSN: [id number] Surgical operation note* Brief Op Note - Nilsa Mascorro MD - 07/24/2022 5:16 PM EDT BRIEF OPERATIVE / PROCEDURE NOTE LOG ID: [id number] SURGERY/PROCEDURE DATE: 07/24/2022 INCISION/PROCEDURE START TIME: 5:16 PM INCISION CLOSE/PROCEDURE END TIME: 5:40 PM SURGEON(S)/PROCEDURALIST(S) AND TUMBLE TAILSTOCK TURRET LATHE OPERATOR(S): Surgeon(s) and Role: * Josephine Lopes MD - Primary * Nilsa Mascorro MD - Resident - Assisting * Amos Nair MD - Fellow No Additional Staff SURGERY/PROCEDURE(S): exam under anesthesia, hysteroscopy, visually directed dilation and curettageof polypoid like tissue, endocervical polypectomy, repair of vaginal tear ANESTHESIA: General FINDINGS: urethral caruncle, atrophic vaginal canal, cervix flush with vaginal wall, circumferential polypoid-like tissue focal endometrial thickening, rest of endometrial cavity with endometrial atrophy, endometrial cavity calcifications, endocervical polyp, vaginal tear repaired with 2-0 vicryl ESTIMATED BLOOD LOSS: 5 mL Fluid Deficit: 480mL normal saline IVF: 300mL lactated ringers UOP: n/a SPECIMENS: ID Type Source Tests Collected by Time A : and currettings, and endocervical polyp Tissue ENDOMETRIUM POLYP SURGICAL PATHOLOGY Josephine Lopes MD 07/24/2022 4:38 PM COMPLICATIONS: None PRE-OP/PRE-PROCEDURE DIAGNOSIS: post menopausal bleeding POST-OP/POST-PROCEDURE DIAGNOSIS: urethral caruncle, atrophic vaginal canal, circumferential polypoid-like tissue focal endometrial thickening, rest of endometrial cavity with endometrial atrophy, endometrial cavity calcifications, endocervical polyp, vaginal tear repaired with 2-0 vicryl SIGNATURE: Nilsa Mascorro MD PATIENT NAME: Katheryn Orantes DATE: July 24, 2022 TIME: 5:16 PM * Operative Report - Nilsa Mascorro MD - 07/24/2022 4:53 PM EDT AUTO OVERHAULER OPERATIVE/PROCEDURE REPORT LOG ID: [id number] Surgery/Procedure Date: 07/24/2022 Incision/Procedure Start Time: 5:16 PM Incision Close/Procedure End Time: 5:41 PM Surgeon(s)/Proceduralist(s) and Ui Software Developer(s): Surgeon(s) and Role: * Josephine Lopes MD - Primary * Nilsa Mascorro MD - Resident - Assisting * Amos Nair MD - Fellow No Additional Staff Informed Consent: Informed Consent obtained and on the chart Procedure: Hysteroscopy with D&C and Examination under anesthesia Pre-Op/Pre-Procedure Diagnosis: Postmenopausal bleeding Post-Op/Post-Procedure Diagnosis: urethral caruncle, atrophic vaginal canal, cervix flush with vaginal wall, circumferential polypoid-like tissue focal endometrial thickening, rest of endometrial cavity with endometrial atrophy, endometrial cavity calcifications, endocervical polyp, vaginal tear repaired with 2-0 vicryl Antibiotic: None Procedure Details: Patient was taken to the operating room where the sign-in and time out were completed. General anesthesia was induced and found to be adequate. She was placed in dorsal lithotomy position with her feet in [place] stirrups with careful attention not to hyperflex or hyperextend the knees or hips. SCDs were placed and turned on for DVT prophylaxis. Examination under anesthesia was performed to ascertain the position of the uterus which noted to be anteverted. Patient was prepped and draped in the usual fashion. An open-sided speculum was placed in the patient's vagina with clear visualization of the cervix. The anterior lip of the cervix was grasped with a single tooth tenaculum. Cervix was dilated to 6 mm with Hegar dilator. A 5 mm 30-degree hysteroscope was introduced under direct visualization, and theuterus was distended with normal saline. Fluid deficit was 480 cc of normal saline. The hysteroscope was then used for initial survey revealing below findings. The uterine cavity was well visualized.The fallopian tube ostia were visualized bilaterally. Findings: urethral caruncle, atrophic vaginal canal, cervix flush with vaginal wall, circumferential polypoid-like tissue focal endometrial thickening, rest of endometrial cavity with endometrial atrophy, endometrial cavity calcifications, endocervical polyp, vaginal tear repaired with 2-0 vicryl Additional techniques Include: TRUCLEAR MORCELLATOR: The Truclear morcellator was then placed into the uterine cavity and under direct visualization, the polypoid like tissue was morcellated and sent to Pathology. The cavity was noted to be empty and good hemostasis was noted. All instruments were removed from vagina and uterine cavity. Sign-out was completed. Distention Media: 480mL normal saline IV Fluids: 300 mL lactated ring Urine Output: n/a Estimated Blood Loss: 5mL Specimens: ID Type Source Tests Collected by Time A : and currettings, and endocervical polyp Tissue ENDOMETRIUM POLYP SURGICAL PATHOLOGY Josephine Lopes MD 07/24/2022 4:38 PM Implantable Devices: None Drains: None Complications: none A digital sweep of the vaginal canal was performed by the fellow and it was ascertained that no instruments or other foreign bodies are retained within the cavity. Sponge, lap, and needle counts were correct times two and the patient was taken to the recovery room with stable vital signs after tolerating the procedure well. The attending was present for critical and moreno portions of the procedure or immediately available to provide assistance. SIGNATURE: Nilsa Mascorro MD PATIENT NAME: Katheryn Orantes DATE: July 24, 2022 TIME: 5:23 PM PAGER/CONTACT #: Associated attestation - Josephine Lopes MD - 07/24/2022 6:27 PM EDT I have reviewed the results and agree with the findings. Josephine Lopes MD documented in this encounterSt. [facility]10-[facility]22 Hospital Discharge instructions* Discharge Instr - Other Orders* Nilsa Mascorro MD - 07/24/2022 3:13 PM EDT HYSTEROSCOPY POST-PROCEDURE INSTRUCTIONS The following instructions will help you know what to expect in the days following your procedure. Activities You can resume all activities as tolerated; however, you will want to limit your activities the first 24 hours after surgery. You may shower. Sexual Activity Nothing for 1 week Diet Resume a normal diet as tolerated. Vaginal Bleeding Nothing in the vagina for 1 week. No sex, douches or tampons. Pain Control Abdominal pain and cramping is to be expected. Take ibuprofen 600mg every 6 hours for first 2 days after surgery Take tylenol 500-1000mg every 6 hours for first 2 days after surgery When to Contact Your Physician If you are experiencing persistent nausea and or any vomiting for more than 24 hours. If you are saturating a sanitary pad within 1 hour, or heavy bleeding If you have signs of infection (pain not relieved with ibuprofen and/or narcotic pain medication, foul odor/discharge, or a fever of 100.4F or higher). GYNECOLOGY PHYSICIAN CONTACT INFORMATION Minimally Invasive Gynecologic Surgery (MIGS) /Benign Gynecology: Dr. Josephine Lopes Dr. Gavino Rollins Dr. Ria Garcia Dr. Licha Pacheco Dr. Meseret Toro Dr. Brigitte Lr [facility] Nurse Practitioner Jasmina Sosa, [facility] Manda Tong, [facility] May Langston, [facility] Kiah Leon, [facility] Nimo Saucedo, [facility] Future Appointments Date Time Provider Department Center 08/24/2022 11:30 AM Josephine Lopes MD [facility] 09/17/2022 10:40 AM Sudarshan Mojica MD [facility] 09/22/2022 11:20 AM Len Elias PA-C [facility] 11/11/2022 3:30 PM Josephine Lopes MD [facility] documented in this encounterSt. [facility]10-07-2022 History and physical note * Tamar José PA-C - 07/24/2022 2:58 PM EDT UPDATED HISTORY AND PHYSICAL EXAMINATION SERVICE DATE: 07/24/2022 SERVICE TIME: 2:58 PM SERVICE: Gynecology PHYSICAL EXAM MUST BE COMPLETED ON ADMISSION The History and Physical (completed in the past 30 days) has been reviewed and the patient has beenexamined. The contents accurately reflect the patient's condition with the following additions or revisions since the H&P was completed. This is a 72 y/o female that presents for hysteroscopy. She has a PMH significant for HTN, IBS, Parkinson's, fibromyalgia. Patient has no complaints today. Patient denies any changes to health since last examination. Patient DENIES CHEST PAIN, PALPITATIONS, FATIGUE, DIZZINESS Shortness of breath, COUGHING, WHEEZING ABDOMINAL PAIN, N/V/D Medication reconciliation list reviewed in [facility]. Past medical history, past surgical history, social history and family history reviewed and updatedin [facility]. ALLERGIES Allergies: Lyrica [Pregabalin] Comment:dizzy,sick to stomach Macrobid [Nitrofura* Hives Morphine Vomiting SEE [facility] Examination indicates no changes. On examination today: Lungs: Clear to auscultation bilaterally. Heart: RRR, Normal S1/S2, No murmurs, rubs, gallops or thrills appreciated. Abdomen: BS+ in all quadrants, abdomen is soft, non tender, and without guarding. Assessment: 1.PMB (postmenopausal bleeding) [N95.0]) Plan: 1.HYSTEROSCOPY W/ POLYPECTOMY W/ D&C (N/A) This H&P can be found in the Electronic Medical Record dated 07/17/2022 completed by Tia Sarmiento APRN.EMPLOYMENT LAW ATTORNEY SIGNATURE: Tamar José PA-C PATIENT NAME: Katheryn Orantes DATE: 07/24/2022 TIME: 2:58 PM documented in this encounterSt. [facility]09-30-[facility]22 History of Present illness Narrative* Dorothy Pugh, RT(R) - 07/17/2022 4:30 PM EDT Radiology Service Progress Note PATIENT NAME: Katheryn Orantes DATE OF SERVICE: July 17, 2022 TIME: 4:24 PM PATIENT IDENTITY VERIFICATION COMPLETED USING TWO (2) IDENTIFIERS: Name and Date of confirmedby patient verbally. FALL SCREENING: Has the patient had 2 falls in the last year or 1 fall with injury or currently using an Ambulatory Assistive Device (Walker, Cane, Wheelchair, Crutches, etc.)? Yes, Patient High Riskfor Falls What interventions were put in place to prevent falls during this visit? Offered Assistance with Transfers/Clothing and Instructed Patient to Remain Seated (Not on Exam Table) Until Exam PATIENT GENDER DATA: Female. status: : No status: NO. PATIENT RELEVANT IMPLANT DATA REVIEWED: Not Applicable RADIOLOGY DEPARTMENT: General X-ray: Exam(s) Completed: Chest X-Ray PERIPHERAL IV DATA: Not applicable SIGNED BY: RT Nimco(R) July 17, 2022 4:24 PM documented in this encounterSt. [facility] Hospital09-30-2022 Instructions* Patient Instructions* Tia Sarmiento APRN.EMPLOYMENT LAW ATTORNEY - 07/17/2022 4:09 PM EDT PATIENT PREOPERATIVE INSTRUCTIONS Sudarshan Mojica MD has scheduled you for your procedure at this surgery center: [facility]: [phone] -- [place] [id number]. Please read below carefully for your personalized instructions. Dietary Restrictions: - No solid food after midnight. - You may have 12 ounces of clear liquids (water, clear juices such as apple juice or gatorade, carbonated beverages, clear tea, black coffee, jello) until 2 hours before scheduled arrival at facility. Medications: Unless instructed differently below, stay on all of your medications until your surgery. Approved medications to take the morning of surgery with a sip of water: Gabapentin, Omeprazole Do not take Lisinopril the day of surgery or evening prior to surgery If you start any new medications after today's visit, please contact the surgeon's office. Blood Thinning Medications: - Stop NSAIDS (Ibuprofen, Advil, Aleve, Motrin, Celebrex, Mobic, etc.) 7 days before surgery, as directed by your surgeon. - Stop Aspirin 7 days before surgery, as directed by your surgeon. - Stop Vitamin E, ALL multi-vitamins, herbals and dietary supplements 7 days before surgery. - You may take Tylenol (Acetaminophen) or any of your pain medications that do not contain aspirin or NSAIDS as needed. Important Reminders: - If you use CPAP/BIPAP, bring the machine with you to the surgery center. - If you are prescribed inhalers for breathing, continue using them. - Candy, mints, and tobacco products are NOT permitted the morning of surgery. - Hearing aids, dentures and glasses may be worn the morning of surgery. - NO jewelry, body piercings, makeup, hairpins or contacts are to be worn the day of surgery. If you develop symptoms such as a fever, cold, or flu, or have other changes to your health within TWO DAYS of scheduled surgery or the morning of surgery, please contact the surgery center above. Personal Belongings: -Please have photo ID and insurance cards. -If you do not have a copy of advance directives on file with us, please bring a copy with you on the day of surgery. - Leave ALL valuables and money at home or with family members. For Outpatient Procedures: - YOU MUST HAVE A RESPONSIBLE HELMET COVERER TAKE YOU HOME. A RN ORTHOPAEDIC OR KEY CARRIER CANNOT BE MADE A RESPONSIBLE HELMET COVERER. - We recommend that a responsible person stays with you overnight to take care of you. - You cannot stay in a hotel alone after outpatient surgery. You will not be permitted to have yoursurgery, if you do not have someone to take care of you. Arrival Time for Surgery: - The Surgery Center or hospital where you are having surgery will call the afternoon before surgery (or Wednesday for Wednesday surgery) with a scheduled arrival time. - If you have not heard by 4 pm, please contact the surgery center above. Please be aware that emergency situations arise, which may delay or change your surgical time. If this happens, we will notify you as soon as possible and regret any inconvenience. If you already have an Advance Directive, please fax a copy to [phone] or email to for it to be added to your chart. If you do not have an Advance Directive, you can find the appropriate form and more information at [email or web address]. We recommend that youcomplete the Advance Directive form found on the website and bring it with you the day of your surgery. It can be witnessed and scanned into your chart that day. Tia Sarmiento APRN.KHALIF documented in this encounterSt. [facility] Hospital09-30-2022 History and physical note * Tia Sarmiento APRN.CNP - 07/17/2022 3:58 PM EDT HISTORY AND PHYSICAL EXAMINATION SERVICE DATE: 07/17/2022 SERVICE TIME: 3:58 PM PRIMARY CARE PHYSICIAN: Sudarshan Mojica MD REASON FOR VISIT: Katheryn Orantes is a 72 year old female who is scheduled for Procedure(s): HYSTEROSCOPY W/ POLYPECTOMY W/ D&C (N/A) at the request of Dr. Sudarshan Mojica for consultation.My final recommendation will be communicated back to the requesting physician by way of shared medical record or letter. 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 CHIEF COMPLAINT: Pre-op exam HPI: GB is a 72 yo seen for PAC due to scheduled above surgery because of PMB. 05/13/2022 Dr. Josephine Lopes This is a 72-year-old whose granddaughter is helping her to manage her postmenopausal bleeding follow-up. Patient cannot tolerate an office examination had an ultrasound revealing endometrium 1.37 mmbut continues to have episodic bleeding. For this reason patient will need to get scheduled for outpatient hysteroscopy D&C possible polypectomy under anesthesia. Also will send prescription for Cytotec 400 mcg by mouth for 2days prior to procedure and at bedtime prior to procedure. REVIEW OF SYSTEMS: General: No weight loss, malaise or fevers. Neurological: Positive for: Parkinson's disease (on rx, following neurology, currently out of rx). Negative for: cerebral palsy, dementia, impaired sensorium, multiple sclerosis, peripheral neuropathy, seizures, TIA and strokes. Respiratory: No history of current cough or dyspnea, or pneumonia in the past 6 weeks. No history of respiratory/pulmonary symptoms or problems. Cardiovascular: Positive for: hypertension (on rx) Negative for: anticoagulation therapy, arrhythmia, atrial fibrillation, CAD, chest pain, CHF, congenital heart defect, DVT/PE, hyperlipidemia, recent ND, murmur/valvular heart disease, open heart surgery and valve surgery. GI: +umbilical hernia Positive for: GERD (on rx) Negative for: abdominal pain, dysphagia, hepatitis, irritable bowel syndrome, inflammatory bowel disease, liver disease, nausea, pancreatitis, vomiting and ETOH >2 drinks/day. : No history of dysuria, frequency or incontinence, stones or chronic kidney disease. No difficulty urinating, nocturia > 1 time per night or hematuria. 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 Endocrine: No history of diabetes. Has not taken steroids within the past 30 days. No history of endocrinological symptoms or problems. Hematology: No history of bleeding or clotting disorder. Patient is not taking anti-coagulation or platelet medications. No history of hematological symptoms or problems. Oncology: No history of CA metastasis, chemo within 30 days, or radiotherapy within 90 days. No history of oncological symptoms or problems. Psych: No history of psychiatric symptoms or problems. Musculoskeletal: +fibromylagia Positive for: back pain. Skin: Negative for lesions, rash and itching. PAST MEDICAL HISTORY Diagnosis Date Chronic back pain pinched nerves in back Chronic left SI joint pain 03/23/2017 Essential hypertension, benign 07/06/2012 Fibromyalgia Hyperlipidemia Irritable bowel syndrome with both constipation and diarrhea 04/19/2017 Lumbar radiculopathy 04/12/2017 Renal calculus, right 04/19/2017 Scoliosis of thoracolumbar spine 03/23/2017 Situational depression 09/10/2017 Thoracic radiculopathy due to degenerative joint disease of spine 12/01/2013 PAST SURGICAL HISTORY Procedure Laterality Date COLONOSCOPY W/BIOPSY SINGLE/MULTIPLE 11/18/2012 COLONOSCOPY W/BIOPSY SINGLE/MULTIPLE 05/11/2017 Normal colonoscopy, normal terminal ileum-unremarkable biopsies D+C 01/16/2021 Hysteroscopy, biopsy urethral caruncle EGD 10/09/2020 EGD TRANSORAL BIOPSY SINGLE/MULTIPLE 05/11/2017 Mild reflux otherwise normal-unremarkable biopsies ESOPHAGOGASTRODUODENOSCOPY TRANSORAL DIAGNOSTIC 07/05/2018 EGD LAPAROSCOPY SURG CHOLECYSTECTOMY 12/01/2012 with ventral hernia repair FAMILY HISTORY Problem Relation Age of Onset Ischemic Heart Disease Father FATHER SIDE OF FAMILY HISTORY OF HEART ATTACKS Social History Tobacco Use Smoking status: Never Smokeless tobacco: Never Vaping Use Vaping Use: Never used Substance Use Topics Alcohol use: No Drug use: No Prior to Admission medications as of 07/17/22 1606 Medication Sig Last Dose Taking HYDROcodone-acetaminophen (NORCO) 5-325 mg per tablet Take 0.5 tablets by mouth every 8 hours as needed for pain. Taking Yes miSOPROStol (CYTOTEC) 200 mcg tablet Take 2 tablets by mouth at bedtime the night before procedure Taking Yes miSOPROStol (CYTOTEC) 200 mcg tablet Take 2 tablets by mouth at bedtime 2 nights prior to procedureand take 2 tablets by mouth at bedtime the night before procedure Taking Yes gabapentin (NEURONTIN) 300 mg capsule Take 1 capsule by mouth twice daily for 90 days. Yes lisinopril (ZESTRIL, PRINIVIL) 20 mg tablet TAKE 1 TABLET BY MOUTH EVERY DAY Taking Yes polyethylene glycol 3350 (MIRALAX, GLYCOLAX) 17 gram/dose powder PLACE (ONE SCOOP) IN 8 OZ OF WATERDAILY UNTIL STOOLS ARE REGULAR UP TO TWO(2) WEEKS Taking Yes omeprazole (PRILOSEC) 20 mg capsule Take 2 capsules by mouth daily before breakfast. 1/2 hr before meal. Yes acetaminophen (TYLENOL) 500 mg tablet Take 500 mg by mouth every 8 hours as needed. Taking Yes No medication comments found. ALLERGIES Allergen Reactions Lyrica [Pregabalin] dizzy,sick to stomach Macrobid [Nitrofura* Hives Morphine Vomiting Objective PHYSICAL EXAM: General: alert and oriented (x3) and healthy appearance. Pertinent negatives noted - not distressed. Skin: normal color, no rash or lesions. HEENT: EOM intact and pupils equal round. Pertinent negatives noted - no carotid bruit. Cardiovascular: regular rate and rhythm, normal S1 and S2, no rub, murmurs, or gallop. Respiratory: normal breath sounds, no wheezes or crackles. No chest wall deformity or tenderness. Abdomen: soft. Pertinent negatives noted - not tender. Extremities: no deformity, no edema or tenderness, no joint swelling or clubbing. Neurological: normal cognition and motor skills. Gait normal. No weakness or sensory deficit. PAIN ASSESSMENT: VITALS: BP 132/84 Pulse 98 Temp (Src) 97.6 (Temporal) Resp 14 Ht 5' 3 (1.60m) Wt 130 lb (59.0kg) SpO2 90% BMI 23.03 kg/(m^2). Diagnostic tests reviewed for today's visit: Lab Value Units Date High Low HB 14.0 g/dL 03/18/2022 15.5 11.5 HCT 45.6 % 03/18/2022 46.0 36.0 WBC 7.01 k/uL 03/18/2022 11.00 3.70 PLT 247 k/uL 03/18/2022 400 150 NA 143 mmol/L 03/18/2022 144 136 K 4.9 mmol/L 03/18/2022 5.1 3.7 GLUC 111 mg/dL 03/18/2022 99 74 BUN 17 mg/dL 03/18/2022 21 7 CREAT 1.28 mg/dL 03/18/2022 0.96 0.58 PTSEC No results within date range. INR No results within date range. APTT No results within date range. ALT 15 U/L 03/18/2022 38 7 AST 20 U/L 03/18/2022 35 13 TBILI 0.5 mg/dL 03/18/2022 1.3 0.2 TSH No results within date range. Lab Value Units Date High Low HCGQT No results within date range. UHCG No results within date range. HCG, BODY* No results within date range. Lab Value Units Date High Low ABORHD No results within date range. ABSCREEN No results within date range. No results found for: HBA1C No results found for this or any previous visit (from the past 8760 hour(s)). No results found for this or any previous visit (from the past 27382 hour(s)). Assessment Essential hypertension, benign Assessment: controlled on rx Last 14 BP Last 14 Encounter BP Readings: Date: BP: 07/17/2022 132/84 06/23/2022 124/78 05/13/2022 122/80 03/20/2022 138/80 03/18/2022 124/90 01/20/2022 128/92 07/29/2021 136/79 07/06/2021 112/68 05/31/2021 130/64 02/28/2021 128/83 02/05/2021 148/88 01/24/2021 120/84 01/06/2021 100/60 12/23/2020 120/80 Parkinson's disease (HCC) Assessment: stable on rx, following neurology, currently out of meds, requested refill from neurologist office Chronic gastritis without bleeding Assessment: controlled on rx DDD (degenerative disc disease), lumbar Assessment: chronic back pain, rx as needed Fibromyalgia Assessment: on rx [place] Activity Status Index: METS: Climb a flight of stairs or walk up a hill (5.50 METs) DASI Score: 5.5 Patient denies any chest pain or undue shortness of breath with the above physical activity. Clinical Frailty Scale: 1. Very fit STOP-Bang Score: Patient over 50 years old Denies snoring loudly Denies feeling tired, fatigued, or sleepy during the daytime Has not been observed to stop breathing or choking/gasping during sleep Denies having high blood pressure BMI less than or equal to 35 kg/m^2 Does not have a large neck Non-male patient STOP-Bang Score: 1 [id number] Score: Age: 65-74 Sex: female Hypertension history: Yes Diabetes history: No [id number] Score: 3 ARISCAT Score: Age: 51-80 ARISCAT Score: ASA Class: 3 ANESTHESIA FINDINGS: Intubation History: No history of difficult intubation Significant Anesthesia Considerations: none Airway History: No history of difficult airway I - PHYSICAL EVALUATION AIRWAYTracheostomy tube not present TM distance: >3 FB. Neck ROM: full ROM without neurological symptoms. Mouth opening: adequate. Short neck: no. Thick neck: no DENTAL Dentures, upper: complete. Dentures, lower: complete. II - ANESTHESIA PLAN ASA Score: 3 Anesthetic Plan: other Anesthetic plan additional comments: *PACC/TCI - anesthesia choice. Informed Consent Anesthetic risks, benefits, alternatives, personnel and consent discussed: yes. Patient / Responsible Alliance Party agrees to proceed: yes Patient / Surrogate agrees to blood products: Yes Prepared for Surgery: optimally prepared for surgery, pending [see comment]. COVID CONSULTS: Planned Anesthetic: other anesthesia choice The Following Tests/Procedures Have Been Initiated: Orders Placed This Encounter XR CHEST 2V FRONTAL/LAT Standing Status: Future Number of Occurrences: 1 Standing Expiration Date: 08/16/2023 amantadine HCl (SYMMETREL) 100 mg capsule Sig: Take 1 capsule by mouth once daily. Instructions Given to Patient: Instructions located in the after visit summary. Patient given verbal and written preop instructions and voices comprehension and compliance. SIGNATURE: Tia Sarmiento APRN.EMPLOYMENT LAW ATTORNEY PATIENT NAME: Katheryn Orantes DATE: July 17, 2022 TIME: 3:58 PM PAGER/CONTACT #: documented in this encounterSt. [facility] Hospital09-26-2022 History of Present illness Narrative* Brigitte Beckford, SCREEN OPERATOR - 07/13/2022 10:30 AM EDT DATE OF SERVICE: 07/13/2022 PROBLEM: Katheryn Orantes presents for pre-op teaching. PRE-OP DIAGNOSIS: PMB SCHEDULED SURGERY AND DATE: 07/24/2022; HYSTEROSCOPY W/ POLYPECTOMY W/ D&C PRIMARY SURGEON: Josephine Lopes MD NURSING PREOP ASSESSMENT: Fevers, chills, cough, or nasal congestion: No Vaginal itching, burning, discharge, or odor: No Pain with urination, frequency, urgency, cloudy or foul smelling urine: No If yes to any of the above then MD notified: Not Applicable ADVANCED CARE PLANNING: Does the patient have an advanced directive: Yes [facility] have a copy of the patient's advanced directive: Yes Was advanced directive given to the patient: No PATIENT LEARNING ASSESSMENT: Individual patient/family learning needs evaluated and addressed: Yes Cognitive ability: Confused at times Motivation to learn: Eager Interested Factors affecting learning: None Physical limitations affecting learning: None Patient learns best by: Multiple Methods Method of instruction: Individual instruction Instructions provided to: Patient and family member via telephone. Written material provided prior to education appointment. Family support: High - Very involved in pt care PRE- AND POST-OPERATIVE TEACHING Pre-operative teaching and supplemental material provided and reviewed with patient: Written pre-opand post-op instructions Antibacterial soap: patient declined, will use own Pre-operative instructions provided and reviewed with patient/family: No eating, drinking, or smoking after midnight prior to surgery unless otherwise directed No alcohol the day before surgery Medications as prescribed by anesthesia, internal medicine, surgeon, or MEDICAL COORDINATOR PESTICIDE USE Stop NSAIDs, Aspirin (ASA), vitamins, herbal supplements, herbal teas, and diet pills 7-10 days prior to surgery OK to take tylenol prn pain unless otherwise directed by physician Call surgery coordinators if any other questions about surgery date or pre-op appointments Bowel prep instructions: NPO after midnight Day of surgery instructions provided and reviewed with patient/family: Arrival time (call surgical coordinators on the office day prior to surgery for verification) No jewelry, body piercing, makeup, contacts, lotions, nail jordanian on fingers, or anything in hair on arrival to surgery Wear low healed shoes and loose fitting clothing Leave all valuables at home or with a family member [facility] Parking/parking validation on the day prior to surgery Admission/check in (Report to DESK J1-9 for surgery) Holding area Placement of IV Surgical positioning Family waiting area Surgical recovery room Post-operative instructions provided and reviewed with patient/family: SEE PATIENT INSTRUCTION SECTION FOR DETAILS. SYMPTOMS TO NOTIFY MD - Fever, chills, nausea, vomiting, increased or severe pain, heavy vaginal bleeding, foul smelling vaginal drainage, pain or swelling in extremities. URGENT SYMPTOMS - Call 911 or go to ER if any shortness of breath, difficulty breathing, or chest pain. HOW TO CONTACT PHYSICIAN - Physician's office phone number given to patient, if after hours patientinstructed to call turning and beading machine operator and ask for population health coach game author onc resident. Additional teaching as indicated by patient/family learning needs. PATIENT LEARNING EVALUATION & FOLLOW UP PLAN: Patient and/or family express understanding of upcoming surgery, pre-operative preparation, the operative process, and post-operative instructions. Follow up plan: Patient instructed to call with any further issues Patient has a post-op appointment scheduled: Yes; 08/24/[address] Lopes Referral (recommentation): None Educator: Brigitte Beckford LPN [facility] [place] documented in this encounterSt. Francis Hospital09-26-2022 Instructions* Patient Instructions* Brigitte Beckford LPN - 07/13/2022 10:24 AM EDT Images from the original note were not included. MINIMALLY INVASIVE GYNECOLOGIC SURGERY (MIGS)/BENIGN GYNECOLOGY CONTACTS: Surgeons: Dr. Shahida Cordero Dr. Josephine Lopes Dr. Ria Garcia Dr. Licha Pacheco Dr. Lam Potts Dr. Meseret Toro Dr. Juanita Mendoza Dr. Brigitte Lr [facility] Nurse Practitioners: Manda Tong, CAFE HELPER.[facility] May Langston, CAFE HELPER.[facility] Kiah Leon, CAFE HELPER.EMPLOYMENT LAW ATTORNEY Nimo Saucedo, CAFE HELPER.[facility] Surgery Scheduling Office: Call the day before surgery after 2pm for your surgery arrival time After hours phone number: or toll free Ask the turning and beading machine operator to page the game author population health coach.' Business hours are Wednesday - Wednesday from 8:00am - 4:30pm. We are closed on weekends and major holidays. PRE-OPERATIVE CHECKLIST: PATIENT INSTRUCTIONS PRIOR TO SURGERY Our guidelines have changed, so please read these instructions carefully. Your surgery may be cancelled if you do not follow these instructions. MY ARRIVAL TIME IS: I have been instructed not to have any solid food to eat after midnight prior to my surgery (this includes no gum, mints, smoking). I am allowed to drink small amounts (up to 12 oz) of clear liquids up until 2 hours prior to my arrival time. Clear liquids include water, fruit juices without pulp, carbonated beverages (i.e. maxx marek), electrolyte beverages (i.e. Gatorade), clear tea and black coffee, clear broth, popsicles and jello. (No milk). No alcohol the day before or day of surgery. I will bring this binder to all pre and post-operative appointments AND day of surgery. MEDICATION STOPPAGE: Unless my surgeon tells me differently, I will STOP THESE MEDICATIONS 7 DAYS PRIOR TO SURGERY: (Motrin/ibuprofen/Naproxen/Aleve/Advil), Aspirin, vitamin E, herbal medications, diet pills, and [id number] medications. Tylenol (acetaminophen) is okay. I will not wear jewelry, body piercing(s), makeup, nail jordanian, hairpins, or contacts on the day ofsurgery. I am to leave valuables and money at home or with family members. If I am prescribed inhalers for breathing, I will use them and bring them to the hospital. Medication(s) to be taken on the morning of surgery with a few sips of water: If I am taking any of the following blood thinning medications - Aspirin, clopidogrel (Plavix), ticagrelor (Brilinta), prasugrel (Efficient), ticlodipine (Ticlid), warfarin (Coumadin), dibigatran (Pradaxa) or rivaroxaban (Xarelto) - I will discuss whether or not I should stop them before surgery with my surgeon. Discuss medication changes with your hand frame surgical elastic knitter or primary care physician as well. If I stopped taking my blood-thinning medication, I will ask the surgeon when to resume taking it. If I am an outpatient, a responsible person will drive me home and it was suggested that someone stay with me for 24 hours. I understand that a business resiliency manager or cabdriver is NOT a responsible caregiver. Patients with diabetes,I will not take my morning diabetes medication (pills) on the morning of surgery. If I am on insulin, someone has gone over those instructions with me for the morning of surgery. I understand if my surgery is delayed, I will notify the check in desk that I have diabetes. See the Diabetic GuidelinesBefore Surgery in the patient education section. If I have Obstructive Sleep Apnea and use a CPAP/BiPAP machine, I will bring my mask, tubing, and machine with me on the day of surgery. Pain management education material found in Your Surgical Guide was reviewed with me. To find out my arrival time for surgery, I must call my surgical corsetier after 2pm the day beforesurgery. Pre-operative instructions given by: PREOP INSTRUCTIONS THE DAY OF SURGERY/CHECK IN Report to DESK J1-9 for surgery. A map is located in Your Surgical Guide Book. The online version of the surgical guide book can be found at: [email or web address] The address is [address] [place] [address]/[place] [address] INFECTION PREVENTION Please notify your doctor if you have any signs of an infection (i.e. fever, severe cough, nasal congestion, pain with urination, abnormal vaginal discharge, diarrhea, etc). Your surgeon will let you know if a bowel prep is needed before your surgery. If so, please see theattached instructions. Shower the night before surgery AND the morning of surgery with Hibiclens (provided by your surgeon). If you are allergic to Hibiclens or unable to obtain the Hibiclens, please wash with antibacterial soap. Wash your body from the neck down, focusing on your abdomen, belly button and external genitalia. Do not forget to scrub any skin folds and creases. No lotions, oils, creams, or powders after your shower. Underarm deodorant is okay. No shaving (abdominal or pubic hair) or douching the day before surgery. You may be asked to apply an antiseptic solution called Chlorhexidine Gluconate (CHG) which will beprovided to you on arrival to the preop area. Hand washing is extremely important in preventing infection (for both you as the patient and for the caregivers). HOSPITALIZATION Before you leave the hospital, you typically need to be able to eat/drink, urinate, and have your pain controlled with oral medication. Your surgeon or other members of your surgeon s team will discuss any other specific medical issues related to your discharge with you. Your surgeon may order intermittent compression sleeves. These are massaging leg pumps to help prevent blood clots after surgery. See Your Surgical Guide Book for more information. It is also very important that you walk as soon as possible and as frequently as possible after surgery. This will help decrease your risk of blood clots, exercise your lungs and speed up your recovery after surgery. If you are admitted to the hospital overnight, you will be given an incentive spirometer, which is a breathing machine that will help make sure that you are taking deep breaths and expanding your lungs while in the hospital. See Your Surgical Guide Book for more information. [facility] At the [facility], we have a multidisciplinary team of caregivers that includes fellows, residents, nurse practitioners, physician assistants, clinical nurse specialists, nurses, medical assistants, patient care nursing assistants, social workers, skilled nursing case manager and many others. We all have different roles and responsibilities but we are all here to help. HYSTEROSCOPY PREOP INSTRUCTIONS PREOP Medications to stop at least 7 days before surgery: Aspirin, over the counter pain medications (i.e. motrin, aleve, advil, etc), vitamins, supplements, herbal medications. If you are taking any control pills, hormones or blood thinners (i.e. coumadin, plavix, etc) please discuss with your doctor to see if these need to be stopped before surgery. You may take Tylenol (aka acetaminophen) for pain. Please notify your doctor if you have any signs of an infection (i.e. fever, severe cough, nasal congestion, pain with urination, abnormal vaginal discharge, etc). THE DAY BEFORE SURGERY Please call for your arrival time between 2:00 - 4:00pm on the day prior to surgery. Phonenumber: or ext [phone]. No alcohol on the day before surgery. Please take a shower the night before surgery and the morning of surgery. Use an antibacterial soap(i.e. Dial) and wash your entire body with special emphasis on your abdomen, belly button, and external genitalia. Do not shave the day before your surgery. THE DAY OF SURGERY Report to DESK P20 (unless instructed to go to J1-1). Map in surgical guide book. If you were instructed to take your medication on the day of surgery you may do so with a small sipof water. Do not wear any jewelry, nail jordanian, makeup, lotions, contact lenses, or anything in your hair. POST-OP INSTRUCTIONS You must have a responsible adult drive you home and stay with you for the first [address] or drink any alcohol for 24 hours after surgery. You may have mild nausea, a sore throat or raspy voice for a few days. Nothing in the vagina for 1 week after surgery unless otherwise instructed by your doctor. You may shower and/or take a bath after surgery unless otherwise instructed by your doctor. You may resume exercise 48 hours after surgery as tolerated. WHEN TO CALL YOUR DOCTOR: Fever (>100.4 F) or chills. Incision redness or foul smelling drainage. Severe nausea or persistent vomiting. Bright red vaginal bleeding heavier than a normal period or foul smelling vaginal drainage. Severe pain not relieved with pain medication. Pain and swelling in your legs, especially if it is only on one side and not the other. Pain with urination, cloudy urine, or foul smelling urine. Or if you have any other problems or questions. CALL 911 OR GO TO THE ER IF YOU HAVE: Any shortness of breath or chest pain. documented in this encounterSt. [facility]09-[facility]-2022 Miscellaneous Notes* Telephone Encounter - Sandra Menard LPN - 07/08/2022 11:03 AM EDT Attempted to call patient regarding missed appointment at 10:40am with [facility] this morning. Both mobile and home numbers were called without an answer. Sandra Menard LPN documented in this encounterSt. [facility] Hospital09-08-2022 Miscellaneous Notes* Telephone Encounter - Sil Lea Ma - 06/25/2022 11:08 AM EDT Pt called and notified of message below from Provider. Verbalized understanding. Pt made aware to update office if symptoms get worse or don't improve. Sil Lea Ma * Telephone Encounter - Sil Lea Ma - 06/25/2022 11:06 AM EDT ----- Message from Len Elias PA-C sent at 06/25/2022 6:31 AM EDT ----- Please advise urine culture showed insignificant growth to indicate UTI. Push fluids ThanksDamion PA-C documented in this [facility]09-07-2022 Miscellaneous Notes* Telephone Encounter - Sil Lea Ma - 06/24/2022 11:13 AM EDT Pt notified of results below from Provider, via Ungalli. Notified pt that office will contact her with Culture results. Sil Lea Ma * Telephone Encounter - Sil Lea Ma - 06/24/2022 11:12 AM EDT ----- Message from Len Elias PA-C sent at 06/24/2022 10:51 AM EDT ----- Please advise urine shows rare bacteria with small pus. Unlikely infection but culutre still pending til tomorrow. Thanks, Damion Elias PA-C documented in this encounterSt. [facility] Hospital08-19-2022 Miscellaneous Notes* Telephone Encounter - Farhana Rand RN - 06/05/2022 1:09 PM EDT Mindy from [facility] was called and notified of providers message that he is willing tofollow. She voices understanding. Farhana Rand RN * Telephone Encounter - Amaris Guy LPN - 06/04/2022 11:16 AM EDT Soraya states that patient is being discharged today from [facility]. She will need PT/OT. Will you be willing to follow and sign orders? documented in this encounterSt. [facility] Hospital08-12-2022 Miscellaneous Notes* Telephone Encounter - Roopa Oropeza LPN - 05/29/2022 11:33 AM EDT Called patient to discuss if appointment on june 02 needed to be cancelled d/t possible surgery with dependency case manager. No response. Left VM for PT to call back. Roopa Oropeza LPN documented in this encounterSt. Francis Hospital08-02-2022 History of Present illness Narrative* Keisha Garcia LPN - 05/19/2022 11:06 AM EDT This nurse called patient's home and was told by patient's granddaughter that patient is currently in the hospital. Patient also tested positive for COVID on 05-15-22. Will route this encounter to surgery scheduling pool as well as Dr. Josephine Lopes. Keisha Garcia LPN May 19, 2022 11:25 AM documented in this encounterSt. [facility] Hospital07-29-2022 Miscellaneous Notes* Telephone Encounter - Sandra Menard LPN - 05/15/2022 3:18 PM EDT Called patient's mobile number at 3:16 regarding missed appointment at 3pm. Granddaughter answered and when asked if patient was available, granddaughter stated patient was in the ER. Sandra Menard LPN documented in this encounterSt. [facility] Hospital07-27-2022 Miscellaneous Notes* Telephone Encounter - Sara Rowland PA-C - 05/13/2022 1:45 PM EDT Patient was scheduled for in person [facility] appt at 1:20 today. Patient did not check in for appt, called patient at 1:30 and 1:40 to see if they were planning on coming. Patient's granddaughter answered and stated they forgot about this appointment and had already left. Patient will need to be rescheduled, granddaughter requests to reschedule [facility] at [place] location as they do not live near [place]. Surgeon s office was notified of missed appointment. documented in this encounterSt. [facility] Hospital07-27-2022 History of Present illness Narrative* Josephine Lopes MD - 05/13/2022 12:41 PM EDT Katheryn Orantes is a 72 year old female who presents for pre op visit. Her PMH: This is a 72-year-old whose granddaughter is helping her to manage her postmenopausal bleeding follow-up. Patient cannot tolerate an office examination had an ultrasound revealing endometrium 1.37 mmbut continues to have episodic bleeding. For this reason patient will need to get scheduled for outpatient hysteroscopy D&C possible polypectomy under anesthesia. Also will send prescription for Cytotec 400 mcg by mouth for 2days prior to procedure and at bedtime prior to procedure. EXAMINATION: TRANSABDOMINAL PELVIC ULTRASOUND CLINICAL HISTORY: Postmenopausal bleeding for 2 to 3 months TECHNIQUE: Sonography of the pelvis was performed by Transabdominal techniques. Patient declined transvaginal imaging. Images were obtained and stored in a permanent archive. MQ: UFP_1 COMPARISON: Comparison is made to prior study dated 30 December 2020 RESULT: Uterus size: 4.1 x 3.3 x 1.7 cm -Orientation: Anteverted -Myometrium: Normal sonographic appearance. No focal myometrial abnormalities. -Endometrial echo complex: Measuring 0.37 cm, transabdominally. -Cervix: normal Right ovary: Not visualized. No obvious adnexal mass. Left ovary: Not visualized. No obvious adnexal mass. Pelvis free fluid: None No signs were not taken as this is a video visit Assessment; 72-year-old with postmenopausal bleeding and cannot tolerate an exam for pelvic exam orendometrial biopsy. Ultrasound appears with endometrial echo of 0.37 mm. Plans; since we cannot evaluate the patient's pelvic exam are due hysteroscopy or biopsy this will be done under anesthesia. Patient to come in for informed consent for hysteroscopy possible polypectomy dilation and curettage and exam under anesthesia. I have sent prescription for Cytotec 400 mcg by mouth at bedtime 2 nights prior to procedure and at bedtime the night before. Appointments will bearranged. This is an 8-minute to discuss results. Josephine Lopes MD HPI: Surgery: 06/02/22:HYSTEROSCOPY W/ POLYPECTOMY W/ D&C OB History No obstetric history on file. Glaze Carrier History LMP: Postmenopausal Age at Menarche: Age at First : Age at Menopause: Glaze Carrier History Comments: Sexual Activity: Not Asked; No partner data on record Contraception: No contraception data on record PAST MEDICAL HISTORY Diagnosis Date Chronic back pain pinched nerves in back Chronic left SI joint pain 03/23/2017 Essential hypertension, benign 07/06/2012 Fibromyalgia Hyperlipidemia Irritable bowel syndrome with both constipation and diarrhea 04/19/2017 Lumbar radiculopathy 04/12/2017 Renal calculus, right 04/19/2017 Scoliosis of thoracolumbar spine 03/23/2017 Situational depression 09/10/2017 Thoracic radiculopathy due to degenerative joint disease of spine 12/01/2013 PAST SURGICAL HISTORY Procedure Laterality Date COLONOSCOPY W/BIOPSY SINGLE/MULTIPLE 11/18/2012 COLONOSCOPY W/BIOPSY SINGLE/MULTIPLE 05/11/2017 Normal colonoscopy, normal terminal ileum-unremarkable biopsies D+C 01/16/2021 Hysteroscopy, biopsy urethral caruncle EGD 10/09/2020 EGD TRANSORAL BIOPSY SINGLE/MULTIPLE 05/11/2017 Mild reflux otherwise normal-unremarkable biopsies ESOPHAGOGASTRODUODENOSCOPY TRANSORAL DIAGNOSTIC 07/05/2018 EGD LAPAROSCOPY SURG CHOLECYSTECTOMY 12/01/2012 with ventral hernia repair FAMILY HISTORY Problem Relation Age of Onset Ischemic Heart Disease Father FATHER SIDE OF FAMILY HISTORY OF HEART ATTACKS Social History Tobacco Use Smoking status: Never Smoker Smokeless tobacco: Never Used Vaping Use Vaping Use: Never used Substance Use Topics Alcohol use: No Drug use: No Current Outpatient Medications Medication Sig miSOPROStol (CYTOTEC) 200 mcg tablet Take 2 tablets by mouth at bedtime 2 nights prior to procedureand take 2 tablets by mouth at bedtime the night before procedure gabapentin (NEURONTIN) 300 mg capsule Take 1 capsule by mouth twice daily for 90 days. lisinopril (ZESTRIL, PRINIVIL) 20 mg tablet TAKE 1 TABLET BY MOUTH EVERY DAY polyethylene glycol 3350 (MIRALAX, GLYCOLAX) 17 gram/dose powder PLACE (ONE SCOOP) IN 8 OZ OF WATERDAILY UNTIL STOOLS ARE REGULAR UP TO TWO(2) WEEKS omeprazole (PRILOSEC) 20 mg capsule Take 2 capsules by mouth daily before breakfast. 1/2 hr before meal. amantadine HCl (SYMMETREL) 100 mg capsule Take 100 mg by mouth once daily. acetaminophen (TYLENOL EXTRA STRENGTH) 500 mg tablet Take 500 mg by mouth every 8 hours as needed. No current facility-administered medications for this visit. Allergies As of Date: 05/13/2022 Allergen Noted Reaction LYRICA [PREGABALIN] 11/24/2007 MACROBID [NITROFURANTOIN MONOHYD/*04/12/2017 Hives MORPHINE 07/01/2006 Vomiting Fully Assessed 05/11/2022 BP 122/80 Wt 54.9 kg (121 lb) BMI 21.43 kg/m Procedure physical examination was not performed. Assessment; 72-year-old with postmenopausal bleeding of unknown etiology and she cannot tolerate anoffice exam. Here today for preop consultation with her granddaughter. Plans; informed consent for hysteroscopy polypectomy dilation curettage. Recommend Cytotec 400 mcg by mouth at bedtime the night prior to procedure. Handout on operative hysteroscopy given. Risk benefits alternatives and complications reviewed. All questions answered. INFORMED CONSENT Procedure: Examination under anesthesia, hysteroscopy, polypectomy dilation and curettage Service: Gynecology Indication: Postmenopausal bleeding and inability to examine patient in the office. The risks, benefits and anticipated outcomes of the procedure, the risks and benefits of the alternatives to the procedure and the roles and tasks of the personnel to be involved were discussed with the patient and she consents to the procedure and agrees to proceed. The risks, benefits and anticipated outcomes of the hysteroscopic procedure, the risks and benefitsof the alternatives to the procedure and the roles and tasks of the personnel to be involved were discussed with the patient and she additional risks benefits have also been reviewed with the patientincluding potential for blood transfusion, deep venous vein thrombosis, respiratory infections, infectious morbidity, anesthetic complications, injury to bowel bladder, intra-abdominal organs, and . Risk of a 2 stage procedure incomplete hysteroscopic resection, fluid overload, uterine perforation, hysterectomy, and recurrence of her current medical problem. The patient also understands that the procedure may require additional intra- operative consultationor additional intraoperative surgical procedures.The patient was also informed of the ancillary staff that would work with me which might include medical students, residents, nursing staff, and anesthesia staff.The patient consents to the procedure and agrees to proceed. I verify that I personally obtained the consent. Josephine Lopes MD documented in this encounterSt. [facility] Hospital07-26-2022 Miscellaneous Notes* Telephone Encounter - Daniela Marley - 05/12/2022 8:43 AM EDT Spoke with patient's granddaughter Hardy about the dates and times for pre & post op appts; she put them all in her phone documented in this encounterSt. Francis Hospital07-25-2022 Miscellaneous Notes* Telephone Encounter - Farhana Churchill RN - 05/11/2022 2:34 PM EDT See mychart response from 05/11/22, closing this encounter. Farhana Churchill RN documented in this encounterSt. Francis Hospital07-21-2022 Miscellaneous Notes* Telephone Encounter - Satya Lan RN - 05/07/2022 8:10 AM EDT Message from Dr. Lopes: Thanks. I have sent this to my lending activities supervisor to schedule. Josephine Lopes MD * Telephone Encounter - Satya Lan RN - 04/30/2022 4:12 PM EDT Patients grand daughter calling Dr. Lopes back to schedule procedure. Satya Lan RN April 30, 2022 4:13 PM documented in this encounterSt. Francis Hospital06-27-2022 Miscellaneous Notes* Telephone Encounter - Josephine Lopes MD - 04/13/2022 4:14 PM EDT Please send a certified letter to this patient stating; I had scheduled a video visit to speak withyou about the results of your ultrasounds on Wednesday, April 13, 2022 at 4 PM. I called multiple phonenumbers that were listed without success. I really need to speak with you about the results of your ultrasound and the vaginal bleeding that you have episodically had. It is urgent that I reviewed the results with you to determine a treatment plan. Please call my office at [phone] and select option #2 to speak with my statistical secretary so that we can find another time to talk. This matter is very urgent. Sincerely, Josephine Lopes MD documented in this encounterSt. Francis Hospital06-20-2022 History of Present illness Narrative* Sandra Arboleda RDMS - 04/06/2022 1:45 PM EDT Radiology Service Progress Note PATIENT NAME: Katheryn Orantes DATE OF SERVICE: April 06, 2022 TIME: 2:54 PM PATIENT IDENTITY VERIFICATION COMPLETED USING TWO (2) IDENTIFIERS: Name and Date of confirmedby patient verbally. FALL SCREENING: Has the patient had 2 falls in the last year or 1 fall with injury or currently using an Ambulatory Assistive Device (Walker, Cane, Wheelchair, Crutches, etc.)? No PATIENT GENDER DATA: Female. status: : No status: N/A PATIENT RELEVANT IMPLANT DATA REVIEWED: Not Applicable RADIOLOGY DEPARTMENT: Ultrasound PERIPHERAL IV DATA: Not applicable SIGNED BY: Sandra Arboleda RDMS RVT April 06, 2022 2:54 PM documented in this encounterSt. Francis Hospital06-13-2022 Miscellaneous Notes* Telephone Encounter - Jessa Ramirez Ma - 03/30/2022 10:22 AM EDT Pt notified of results via Ungalli. Jessa Ramirez Ma * Telephone Encounter - Bro Dixon LPN - 03/27/2022 1:19 PM EDT TC to pt, left message to return call to office. Bro Dixon LPN * Telephone Encounter - Sudarshan Mojica MD - 03/27/2022 12:28 PM EDT Bone density does show osteoporosis. Please have her follow up with one of us in next month or so to discuss treatment options. documented in this encounterSt. Francis Hospital06-09-2022 Miscellaneous Notes* Letter - Mammography Coordinator - 03/26/2022 7:20 AM EDT March 26, 2022 PID: [id number] Katheryn Orantes [address] [place] [id number] Dear Ms. Orantes, We are pleased to inform you that the results of your recent breast imaging exam on 03/25/2022 are normal. Your mammogram demonstrates that you have dense breast tissue, which could hide abnormalities. Dense breast tissue, in and of itself, is a relatively common condition. Therefore, this information is not provided to cause undue concern; rather, it is to raise your awareness and promote discussion with your health care provider regarding the presence of dense breast tissue in addition to other riskfactors. Early detection of cancer is very important. We also understand recommendations regarding breast cancer screening are controversial. Please discuss with your primary care provider which strategy is best for you and whether a mammogram is right for you. Your imaging studies and report will be kept on file at [facility] as part of your permanent medical record and are available for your continuing care. Thank you for allowing us to help in meeting your health care needs. Sincerely, Dr. Cao Interpreting Radiologist [facility] (Normal over 40) documented in this encounterSt. Francis Hospital06-08-2022 History of Present illness Narrative* Yanique Donato RT(R) - 03/25/2022 2:20 PM EDT Radiology Service Progress Note PATIENT NAME: Katheryn Orantes DATE OF SERVICE: March 25, 2022 TIME: 2:12 PM PATIENT IDENTITY VERIFICATION COMPLETED USING TWO (2) IDENTIFIERS: Name and Date of confirmedby patient verbally. FALL SCREENING: Has the patient had 2 falls in the last year or 1 fall with injury or currently using an Ambulatory Assistive Device (Walker, Cane, Wheelchair, Crutches, etc.)? No PATIENT GENDER DATA: Female. status: : No status: NO. PATIENT RELEVANT IMPLANT DATA REVIEWED: Not Applicable RADIOLOGY DEPARTMENT: Mammography PERIPHERAL IV DATA: Not applicable SIGNED BY: RT Gracy(R) March 25, 2022 2:12 PM documented in this encounterSt. Francis Hospital06-08-2022 History of Present illness Narrative* RT Ghanshyam(R) - 03/25/2022 1:30 PM EDT Radiology Service Progress Note PATIENT NAME: Katheryn Orantes DATE OF SERVICE: March 25, 2022 TIME: 1:39 PM PATIENT IDENTITY VERIFICATION COMPLETED USING TWO (2) IDENTIFIERS: Name and Date of confirmedby patient verbally. FALL SCREENING: Has the patient had 2 falls in the last year or 1 fall with injury or currently using an Ambulatory Assistive Device (Walker, Cane, Wheelchair, Crutches, etc.)? No PATIENT GENDER DATA: Female. status: : No status: NO. PATIENT RELEVANT IMPLANT DATA REVIEWED: Not Applicable RADIOLOGY DEPARTMENT: Bone Density PERIPHERAL IV DATA: Not applicable SIGNED BY: RT Ghanshyam(R) March 25, 2022 1:39 PM documented in this encounterSt. Francis Hospital06-03-2022 History of Present illness Narrative* Karthikeyan Joseph MD - 03/20/2022 9:51 AM EDT HISTORY AND PHYSICAL Katheryn Orantes 1950 REFERRING PHYSICIAN: Sudarshan Mojica MD CHIEF COMPLAINT: Consult (hernia consult) HPI: Katheryn is a 72 year old female with a complaint of a bulge and discomfort in her left inguinalregion. The patient notes discomfort in this area with lifting and straining. The symptoms have maintained, over the past 2 years. The patient notes no symptoms of bowel obstruction and denies nausea or vomiting. The patient was seen by her primary care physician who felt the patient has a hernia. Katheryn was referred for evaluation and treatment. The patient is being seen by me today at the request of Dr. Sudarshan Mojica MD for my opinion and advice regarding Hernia. PAST MEDICAL HISTORY Diagnosis Date Chronic back pain pinched nerves in back Chronic left SI joint pain 03/23/2017 Essential hypertension, benign 07/06/2012 Fibromyalgia Hyperlipidemia Irritable bowel syndrome with both constipation and diarrhea 04/19/2017 Lumbar radiculopathy 04/12/2017 Renal calculus, right 04/19/2017 Scoliosis of thoracolumbar spine 03/23/2017 Situational depression 09/10/2017 Thoracic radiculopathy due to degenerative joint disease of spine 12/01/2013 PAST SURGICAL HISTORY Procedure Laterality Date COLONOSCOPY W/BIOPSY SINGLE/MULTIPLE 11/18/2012 COLONOSCOPY W/BIOPSY SINGLE/MULTIPLE 05/11/2017 Normal colonoscopy, normal terminal ileum-unremarkable biopsies D+C 01/16/2021 Hysteroscopy, biopsy urethral caruncle EGD 10/09/2020 EGD TRANSORAL BIOPSY SINGLE/MULTIPLE 05/11/2017 Mild reflux otherwise normal-unremarkable biopsies ESOPHAGOGASTRODUODENOSCOPY TRANSORAL DIAGNOSTIC 07/05/2018 EGD LAPAROSCOPY SURG CHOLECYSTECTOMY 12/01/2012 with ventral hernia repair Current Outpatient Medications Medication Sig gabapentin (NEURONTIN) 300 mg capsule Take 1 capsule by mouth twice daily for 90 days. lisinopril (ZESTRIL, PRINIVIL) 20 mg tablet TAKE 1 TABLET BY MOUTH EVERY DAY polyethylene glycol 3350 (MIRALAX, GLYCOLAX) 17 gram/dose powder PLACE (ONE SCOOP) IN 8 OZ OF WATERDAILY UNTIL STOOLS ARE REGULAR UP TO TWO(2) WEEKS amantadine HCl (SYMMETREL) 100 mg capsule Take 100 mg by mouth once daily. acetaminophen (TYLENOL EXTRA STRENGTH) 500 mg tablet Take 500 mg by mouth every 8 hours as needed. omeprazole (PRILOSEC) 20 mg capsule Take 2 capsules by mouth daily before breakfast. 1/2 hr before meal. No current facility-administered medications for this visit. ALLERGIES: Lyrica [Pregabalin], Macrobid [Nitrofurantoin Monohyd/M-Cryst], and Morphine PERSONAL HISTORY: Social History Tobacco Use Smoking status: Never Smoker Smokeless tobacco: Never Used Vaping Use Vaping Use: Never used Substance Use Topics Alcohol use: No Drug use: No FAMILY HISTORY: FAMILY HISTORY Problem Relation Age of Onset Ischemic Heart Disease Father FATHER SIDE OF FAMILY HISTORY OF HEART ATTACKS REVIEW OF SYMPTOMS: The review of systems data was entered by the nurse and reviewed by ky Nursing Notes: Kayleigh Vallejo RN 03/20/2022 9:03 AM Signed REVIEW OF SYSTEMS: General: The patient NOTES fatigue, denies weight loss, denies weight gain, denies feeling hot, anddenies feelings of cold. Eyes: The patient denies glaucoma, NOTES eye injury/surgery, does not wear glasses or contacts. Ear/Nose/Throat: The patient NOTES allergies, denies hayfever, denies ear infections, and denies bloody noses. Cardiovascular: The patient denies chest pain, denies heart disease, NOTES high blood pressure,denies cardiac stent, denies prior heart attack, denies irregular heart beat, denies high cholesterol, denies poor circulation, denies heart failure, other cardiac issues, NOTES claudication, denies cold feet, denies peripheral arterial stent. Respiratory: The patient denies tuberculosis, denies pneumonia, denies frequent cough, denies pulmonary embolism, denies shortness of breath, and denies coughing up blood. Gastrointestinal: The patient denies difficulty swallowing, denies acid reflux, denies ulcers, denies vomiting, denies jaundice/hepatitis, NOTES gallbladder problems, denies black or tarry stools, denies hemorrhoids, denies bleeding from rectum, denies diverticulitis, NOTES constipation, denies diarrhea, denies loss of stool control, and NOTES hernias. Kidney/Bladder: The patient denies kidney stones, NOTES urine infections, and denies bloody urine. Skin: The patient denies a history of skin cancer, denies bleeding/changing moles, and denies a history of skin rash. Neurologic: The patient denies a history of epilepsy/convulsions, denies headaches, denies head/spinal injuries, and denies stroke/TIA. Psychiatric: The patient denies psychiatric medications, denies depression, and denies voices, denies substance abuse. Endocrine: The patient denies thyroid disorders, denies diabetes, and denies hormonal problems. Hematologic: The patient denies a history of bruising, denies bleeding, and denies anemia, denies blood clots. Infections: The patient denies a history of measles and mumps, denies rheumatic fever, and denies sexually transmitted diseases. Musculoskeletal: The patient NOTES back pain/injury, NOTES back problems, NOTES sciatica, denies knee/foot trouble, denies arthritis, or denies gout. When was patient's last Mammogram screening? 08/07/2013 Last Colonoscopy: 05/11/2017 Kayleigh Vallejo RN PHYSICAL EXAMINATION: General: The patient is 72 year old female, well nourished, well hydrated in no acute distress. Thepatient is oriented to time, place, and person. VITALS: Blood pressure 138/80, pulse 103, temperature 36.6 C (97.8 F), height 160 cm (5' 3 ), weight 55.5 kg (122 lb 6.4 oz), SpO2 100 %. Body mass index is 21.68 kg/m . HEENT: Normal cephalic, ataumatic, pupils are equally round, sclera are anicteric, mucous membranesare moist, oropharynx is clear. Neck has no masses, asymmetry or lymphadenopathy. Thyroid is unremarkable. Respiratory: Clear to auscultation and percussion. Normal respiratory excursion and pattern. Cardiac: Examination is regular rate and rhythm. Abdominal exam: Soft, nontender, with no palpable masses. No hepatosplenomegaly. A moderate reducible left inguinal hernia, no right inguinal or umbilical hernias are noted Rectal exam: exam deferred Extremities: no clubbing, cyanosis or edema. No adenopathy. Other: LABORATORY VALUES: As Noted RADIOLOGIC STUDIES: As Noted Assessment IMPRESSION: left inguinal hernia PLAN: My plan is to perform a laparoscopic left inguinal hernia repair with mesh. The planned surgical procedure was discussed extensively with the patient. The risks, benefits, anticipated outcomes and possible complications were mentioned. Katheryn undersands that all hernia repair surgery has a chance of recurrence and/or chronic post operative pain. My staff has also explained the procedure in understandable terms and the patient was given the option to take printed material concerning the planned procedure. The patient had the opportunity to ask questions concerning the planned procedure. The patient freely consents to the planned procedure. My findings have been communicated to Dr. Sudarshan Mojica MD via shared medical record. This note will be forwarded to Dr. Sudarshan Mojica MD. Diagnoses: (K46.9) Hernia Anticipated CPT Code: laparoscopic left inguinal hernia repair with mesh - 40002-585 Anticipated Anesthetic: General Patient weight: Blood pressure 138/80, pulse 103, temperature 36.6 C (97.8 F), height 160 cm (5' 3 ), weight 55.5 kg (122 lb 6.4 oz), SpO2 100 %. BMI: Body mass index is 21.68 kg/m . Planned antibiotic: Ancef 2gm IVPB population health coach to OR SCDs needed - Yes Return to Clinic: The patient is instructed to follow-up with me 1 week post operatively. COVID (Procedure Consent) Procedure Criteria Procedure Criteria: Yes Elective The surgeon/proceduralist and patient have discussed in detail therisk of exposure to and/or potential harm posed by the COVID-19 virus with having a surgery/procedure at this time versus the risk of delaying the surgery/procedure. It is not possible to know eitherthe risk of delaying the surgery or procedure or chance of getting an infection with perfect accuracy, but a joint decision was made between the patient and the surgeon/proceduralist to proceed at this time with the scheduled surgery/procedure as indicated on the consent form. Prior to this patient undergoing a laparoscopic left inguinal hernia repair she is going to have tohave her thickened endometrium worked up completely to make sure she has no malignancies. At the present time I see that she has an appointment with Dr. Josephine Lopes but this is not until October 2022. I will send this note to the appropriate physicians hopefully an endometrial biopsy can be performed prior to me doing the laparoscopic hernia repair. Karthikeyan Joseph III, MD documented in this encounterSt. [facility] Nurse Note* Kayleigh Vallejo RN - 03/20/2022 9:00 AM EDT REVIEW OF SYSTEMS: General: The patient NOTES fatigue, denies weight loss, denies weight gain, denies feeling hot, anddenies feelings of cold. Eyes: The patient denies glaucoma, NOTES eye injury/surgery, does not wear glasses or contacts. Ear/Nose/Throat: The patient NOTES allergies, denies hayfever, denies ear infections, and denies bloody noses. Cardiovascular: The patient denies chest pain, denies heart disease, NOTES high blood pressure,denies cardiac stent, denies prior heart attack, denies irregular heart beat, denies high cholesterol, denies poor circulation, denies heart failure, other cardiac issues, NOTES claudication, denies cold feet, denies peripheral arterial stent. Respiratory: The patient denies tuberculosis, denies pneumonia, denies frequent cough, denies pulmonary embolism, denies shortness of breath, and denies coughing up blood. Gastrointestinal: The patient denies difficulty swallowing, denies acid reflux, denies ulcers, denies vomiting, denies jaundice/hepatitis, NOTES gallbladder problems, denies black or tarry stools, denies hemorrhoids, denies bleeding from rectum, denies diverticulitis, NOTES constipation, denies diarrhea, denies loss of stool control, and NOTES hernias. Kidney/Bladder: The patient denies kidney stones, NOTES urine infections, and denies bloody urine. Skin: The patient denies a history of skin cancer, denies bleeding/changing moles, and denies a history of skin rash. Neurologic: The patient denies a history of epilepsy/convulsions, denies headaches, denies head/spinal injuries, and denies stroke/TIA. Psychiatric: The patient denies psychiatric medications, denies depression, and denies voices, denies substance abuse. Endocrine: The patient denies thyroid disorders, denies diabetes, and denies hormonal problems. Hematologic: The patient denies a history of bruising, denies bleeding, and denies anemia, denies blood clots. Infections: The patient denies a history of measles and mumps, denies rheumatic fever, and denies sexually transmitted diseases. Musculoskeletal: The patient NOTES back pain/injury, NOTES back problems, NOTES sciatica, denies knee/foot trouble, denies arthritis, or denies gout. When was patient's last Mammogram screening? 08/07/2013 Last Colonoscopy: 05/11/2017 Kayleigh Vallejo RN documented in this encounterSt. [facility] Miscellaneous Notes* Telephone Encounter - Keisha Draper Ma - 03/19/2022 10:34 AM EDT Patient was notified and will call to schedule US. Aware to go to lab for urine and blood work in one month. Patient does not have any symptoms of UTI or burning sensation Keisha Draper Ma * Telephone Encounter - Sudarshan Mojica MD - 03/19/2022 8:41 AM EDT Cholesterol is up slightly. Watch diet. Urine show protein still and kidney function is slightly reduced. Avoid meds like ibuprofen or aleve. Check renal us and 24 hour urine for protein. Urine shows some white cells but may be contaminated. Does she have any uti symptoms. Recheck bmp in one month and cbc, since white count minimally up. documented in this encounterSt. [facility]06-[facility]22 Instructions* Patient Instructions* Sudarshan Mojica MD - 03/18/2022 8:31 AM EDT See surgery. See game author. Increase gabapentin. Get urine and labs. BONE MINERAL DENSITY PATIENT INSTRUCTIONS Bone mineral density testing measures the amount of calcium in certain parts of your bones. This information determines how strong your bones are. The test is used to detect osteoporosis, a disease in which the bone's mineral content and density are low, increasing a person's risk of fractures. Thelumbar spine (lower back) and the hip are the skeletal sites usually examined. For the test, remember that: 1. You cannot take this test if you are . 2. Eat a normal diet on the day of the test. 3. Take your medications as you normally would. 4. DO NOT take calcium supplements (such as Tums) for 24 hours before the test. 5. On the day of the test, leave valuables (jewelry or credit cards) at home. 6. The test should be performed prior to oral, rectal or IV contrast studies, or at least 7 days after any of these studies. For the test, you may be asked to wear a hospital gown. You will lie on your back, on a padded table, in a comfortable position. Generally, you can resume your usual activities immediately. documented in this encounterSt. [facility]06-[facility]22 History of Present illness Narrative* Sudarshan Mojica MD - 03/18/2022 8:18 AM EDT Patient presents with: Yearly Exam: complaint of hernia, need refill HPI: Patient presents today for office visit for follow up. Since last visit, has not seen game author or surgery as recommended. Was referred to pain management last summer which she did keep. Did not see gi as recommended from the May appt. She was also to repeat a ua in the fall due to protein but did not do as recommended. Reminded again, she needs to see surgery and game author. Will place consults again. Seeing pain management. Still taking gabapentin. She states it helps a little bit. We discussed increasing dose Needs refill on gabapentin. No chest pain or shortness of breath. Weight is down a little. Does not eat a little. Still seeing neurology. See previous notes from visit with Aretha Ann in 02/06: ASSESSMENT/PLAN: 1. Hernia - ICD9: 553.9, ICD10: K46.9 (primary diagnosis) Reducible hernia in the left lower quadrant just above mons pubis. No discoloration. Area soft. We will go ahead and refer to general surgery for further evaluation of hernia. Discussed with patient that if she should get severe pain, she needs to proceed to the emergency room. - CONSULT TO GENERAL SURGERY 2. Lumbar radiculopathy - ICD9: 724.4, ICD10: M54.16 Refill: - GABAPENTIN 300 MG CAPSULE 3. Thickened endometrium - ICD9: 793.5, ICD10: R93.89 Patient continues to report vaginal bleeding. Discussed with both patient and granddaughter the importance of following up with [employer]O OVER[employer] for further evaluation of the thickened endometrium. They voiced understanding and report they will get this scheduled. See note copied and pasted from my visit from 06/07: Does not feeling more fatigued more recently. Is still having issues with her back. No radicular issues. Has not been back to see pain management. Still having gi discomfort. Had egd done last year. No nausea. Has some chronic constipation. No blooey or black stools. Pain starts in her epigastric pain. Will wrap around her right side. Eating can make it worse. Does have IBS. No weight loss. Has had on and off for a while. Did have a ct scan a few years ago. Does not have a gallbladder. Does take prilosec. No dysuria or urinary issues. HTN: Patient is compliant with meds Yes Denies side effects: No. Chest pain: No. Dyspnea: No. Edema: Nothing new. Palpitations: No. Dizziness: No. Seeing Dr. Ohara. Most recent labs shows decreased gfr in the 50's Recently saw urology for removal of a urethral caruncle. 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 No further discharge. Has a thickened uterine lining. Component Latest Ref Rng & Units 05/31/2021 WBC 3.70 - 11.00 k/uL 5.23 RBC 3.90 - 5.20 m/uL 5.04 Hemoglobin 11.5 - 15.5 g/dL 14.7 Hematocrit 36.0 - 46.0 % 47.0 (H) MCV 80.0 - 100.0 fL 93.3 MCH 26.0 - 34.0 pG 29.2 MCHC 30.5 - 36.0 g/dL 31.3 RDW-CV 11.5 - 15.0 % 13.8 Platelet Count 150 - 400 k/uL 263 MPV 9.0 - 12.7 fL 10.5 Neut% % 52.5 Abs Neut (ANC) 1.45 - 7.50 k/uL 2.73 Lymph% % 32.7 Abs Lymph 1.00 - 4.00 k/uL 1.71 Gila% % 10.9 Abs Gila <0.87 k/uL 0.57 Eosin% % 2.9 Abs Eosin <0.46 k/uL 0.15 Baso% % 1.0 Abs Baso <0.11 k/uL 0.05 Nucleated Reds 0 /100 WBC 0.0 Absolute nRBC <0.01 k/uL <0.01 Diff Type Auto Diff Protein, Total 6.3 - 8.0 g/dL 6.7 Albumin 3.9 - 4.9 g/dL 4.3 Calcium 8.5 - 10.2 mg/dL 9.2 Bilirubin, Total 0.2 - 1.3 mg/dL 0.7 Alkaline Phosphatase 34 - 123 U/L 90 AST 13 - 35 U/L 24 Glucose 74 - 99 mg/dL 102 (H) BUN 7 - 21 mg/dL 16 Creatinine 0.58 - 0.96 mg/dL 1.07 (H) Sodium 136 - 144 mmol/L 141 Potassium 3.7 - 5.1 mmol/L 4.3 Chloride 97 - 105 mmol/L 105 CO2 22 - 30 mmol/L 24 Anion Gap 9 - 18 mmol/L 12 ALT 7 - 38 U/L 17 eGFR- >60 eGFR-All Other Races . 50 Color Yellow Yellow Clarity Clear Slightly Cloudy (A) Glucose, Urine Negative mg/dL Negative Bilirubin, Urine Negative Negative Ketones, Urine Negative Negative Specific [place], Ur 1.005 - 1.030 1.019 Hemoglobin/Blood,Ur Negative Negative pH, Urine 5.0 - 8.0 7.0 Protein, Urine Negative 1+ (A) Urobilinogen Negative E.U./dL Negative Nitrites Negative Negative Leukest Negative 1+ (A) Comment SEE COMMENT Urine Geovanny Comment SEE COMMENT WBC, Urine 0 - 5 /HPF 0-5 RBC, Urine 0 - 3 /HPF 0-3 Epithelial Cells /HPF SEE COMMENT Cholesterol, Total <200 mg/dL 182 Triglyceride <150 mg/dL 67 HDL Cholesterol >39 mg/dL 55 LDL Cholesterol <100 mg/dL 114 (H) Non HDL Cholesterol <130 mg/dL 127 Fasting Time hrs 11 VLDL Cholesterol <30 mg/dL 13 TC:HDL Ratio <5.10 3.31 LDL:HDL Ratio <2.54 2.07 Lipase 16 - 61 U/L 23 MEDICATIONS: Current Outpatient Medications Medication Sig lisinopril (ZESTRIL, PRINIVIL) 20 mg tablet TAKE 1 TABLET BY MOUTH EVERY DAY gabapentin (NEURONTIN) 300 mg capsule Take 1 capsule by mouth daily at bedtime for 90 days. polyethylene glycol 3350 (MIRALAX, GLYCOLAX) 17 gram/dose powder PLACE (ONE SCOOP) IN 8 OZ OF WATERDAILY UNTIL STOOLS ARE REGULAR UP TO TWO(2) WEEKS amantadine HCl (SYMMETREL) 100 mg capsule Take 100 mg by mouth once daily. acetaminophen (TYLENOL EXTRA STRENGTH) 500 mg tablet Take 500 mg by mouth every 8 hours as needed. omeprazole (PRILOSEC) 20 mg capsule Take 2 capsules by mouth daily before breakfast. 1/2 hr before meal. No current facility-administered medications for this visit. ALLERGIES: ALLERGIES Allergen Reactions Lyrica [Pregabalin] dizzy,sick to stomach Macrobid [Nitrofura* Hives Morphine Vomiting PAST MEDICAL HISTORY Diagnosis Date Chronic back pain pinched nerves in back Chronic left SI joint pain 03/23/2017 Essential hypertension, benign 07/06/2012 Fibromyalgia Hyperlipidemia Irritable bowel syndrome with both constipation and diarrhea 04/19/2017 Lumbar radiculopathy 04/12/2017 Renal calculus, right 04/19/2017 Scoliosis of thoracolumbar spine 03/23/2017 Situational depression 09/10/2017 Thoracic radiculopathy due to degenerative joint disease of spine 12/01/2013 PAST SURGICAL HISTORY Procedure Laterality Date COLONOSCOPY W/BIOPSY SINGLE/MULTIPLE 11/18/2012 COLONOSCOPY W/BIOPSY SINGLE/MULTIPLE 05/11/2017 Normal colonoscopy, normal terminal ileum-unremarkable biopsies D+C 01/16/2021 Hysteroscopy, biopsy urethral caruncle EGD 10/09/2020 EGD TRANSORAL BIOPSY SINGLE/MULTIPLE 05/11/2017 Mild reflux otherwise normal-unremarkable biopsies ESOPHAGOGASTRODUODENOSCOPY TRANSORAL DIAGNOSTIC 07/05/2018 EGD LAPAROSCOPY SURG CHOLECYSTECTOMY 12/01/2012 with ventral hernia repair FAMILY HISTORY Problem Relation Age of Onset Ischemic Heart Disease Father FATHER SIDE OF FAMILY HISTORY OF HEART ATTACKS Social History Tobacco Use Smoking status: Never Smoker Smokeless tobacco: Never Used Vaping Use Vaping Use: Never used Substance Use Topics Alcohol use: No Drug use: No Reviewed current medications, allergies, past medical history, surgical history, family history andsocial history today. REVIEW OF SYSTEMS All other reviewed and negative other than HPI. HEALTH MAINTENANCE: Reviewed health maintenance issues today and recommended the following in detail. COVID-19 VACCINE-.Discussed risks and benefits of covid vaccine. Recommended they consider it. HEPATITIS C SCREENING Never done BONE DENSITY Never done SHINGRIX VACCINE(2 of 3) due on 09/13/2013 MAMMOGRAM due on 07/19/2014 ADVANCE DIRECTIVE DISCUSSION-has one on file. Her daughter and granddaughter are surrogates. VITALS: BP 124/90 Pulse 84 Resp 16 Wt 55.3 kg (122 lb) BMI 21.61 kg/m Last 4 Encounter Wt Readings: Date: Wt: 03/18/2022 55.3 kg (122 lb) 11/07/2021 57.9 kg (127 lb 9.6 oz) 07/28/2021 57.9 kg (127 lb 11.2 oz) 07/06/2021 57.6 kg (127 lb) PHYSICAL EXAMINATION: General appearance: Well appearing, alert, in no acute distress, well-hydrated, well nourished. Skin: Skin color, texture, turgor normal, no suspicious rashes or lesions Head: Normocephalic, no masses, lesions, tenderness or abnormalities Lungs: Lungs clear to auscultation. No wheezing, rhonchi, rales Heart: RRR without murmur, gallop, or rubs. No ectopy Abdomen:, Abdomen soft, non-tender. Bowel sounds normal. Bulge in left inguinal area on standing. Reducible. Extremities: No deformities, edema, skin discoloration, clubbing or cyanosis. Good capillary refill. Musculoskeletal: No joint swelling, deformity, or tenderness Peripheral pulses: Normal Neuro: no changes. ASSESSMENT/PLAN: 1. Parkinson's disease (HCC) - ICD9: 332.0, ICD10: G20 (primary diagnosis) continue to see neurology 2. Lumbar radiculopathy - ICD9: 724.4, ICD10: M54.16 Chronic low back pain - increase meds. - GABAPENTIN 300 MG CAPSULE 3. Resting tremor - ICD9: 781.0, ICD10: G25.2 - as above. 4. Situational depression - ICD9: 309.0, ICD10: F43.21 - stable. 5. Irritable bowel syndrome with both constipation and diarrhea - ICD9: 564.1, ICD10: K58.2 - stable. 6. Hernia - ICD9: 553.9, ICD10: K46.9 - see surgery. - CONSULT TO GENERAL SURGERY 7. Thickened endometrium - ICD9: 793.5, ICD10: R93.89 - reinforced need for follow up. - CONSULT TO GYNECOLOGY 8. Proteinuria, unspecified type - ICD9: 791.0, ICD10: R80.9 - recheck urine. - URINALYSIS, WITH MICROSCOPIC 9. Essential hypertension, benign - ICD9: 401.1, ICD10: I10 - good control - Continue current medication(s) - Goal of BP <130/80 - CBC + DIFF - COMP METABOLIC PANEL - LIPID PANEL BASIC 10. DDD (degenerative disc disease), lumbar - ICD9: 722.52, ICD10: M51.36 Mechanical low back pain 11. Screening breast examination - ICD9: V76.10, ICD10: Z12.39 - IDALIA SCREENING 12. Asymptomatic postmenopausal status - ICD9: V49.81, ICD10: Z78.0 - DXA-AXIAL SKELETON 13. Need for hepatitis C screening test - ICD9: V73.89, ICD10: Z11.59 - HEP C AB IA W/CONF SCRN Sudarshan Mojica RTO in six months and prn. documented in this encounterSt[facility] Miscellaneous Notes* Telephone Encounter - Pat Javier LPN - 02/17/2022 12:18 PM EDT Patient has been identified by name and date of : Yes Patient phones for refill(s): Pending Prescriptions Disp Refills LISINOPRIL 20 MG TABLET 90 tablet 3 Sig: TAKE 1 TABLET BY MOUTH EVERY DAY JIMI: Yes Date of last office visit in primary care: 05/31/21 Please advise. Thank you. Pat Javier LPN documented in this encounterSt. [facility]04-29-2022 Miscellaneous Notes* Telephone Encounter - Rhonda Rosa Ma - 02/13/2022 2:25 PM EDT Unable to reach you letter sent via [facility]. * Telephone Encounter - Rhonda Rosa Ma - 01/30/2022 1:01 PM EDT Patient canceled injection today with Dr. Tam. Attempted to contact patient to re-schedule injection. No answer. No voice mail available. documented in this encounterSt. [facility]06-[facility]21 NoteHNO ID: [id number] Author: Nate Boateng Jr., MD Service: ? Author Type: Physician Type: Progress Notes Filed: 03/20/2021 12:50 PM Note Text: ESTABLISHED PATIENT OFFICE VISIT HPI Katheryn Orantes is a 71 year old female who presents sp excision urethral caruncle. Doing well. Path benign. LAB: Creatinine Date Value Ref Range Status 01/24/2019 1.07 (H) 0.58 - 0.96 mg/dL Final No results found for: PSA Glucose, Urine (mg/dL) Date Value 02/07/2019 Negative Bilirubin, Urine (no units) Date Value 02/07/2019 Negative Ketones, Urine (no units) Date Value 02/07/2019 Negative Specific [place], Ur (no units) Date Value 02/07/2019 1.012 Hemoglobin/Blood,Ur ( ) Date Value 02/07/2019 Negative pH, Urine (no units) Date Value 02/07/2019 6.0 Protein, Urine (mg/dL) Date Value 02/07/2019 Negative Urobilinogen, Urine (EU) Date Value 05/05/2018 normal Nitrites (no units) Date Value 02/07/2019 Negative Leukocytes (no units) Date Value 05/05/2018 trace WBC, Urine (/HPF) Date Value 02/07/2019 0-5 Color/Appearance (comment:) Date Value 05/05/2018 yellow/clear MEDICATIONS: miSOPROStol (CYTOTEC) 200 mcg tablet Take 2 tablets by mouth at bedtime 2 nights prior to procedure and take 2 tablets by mouth at bedtime the night before procedure miSOPROStol (CYTOTEC) 200 mcg tablet Take 2 tablets by mouth at bedtime 2 nights prior to procedure and take 2 tablets by mouth at bedtime the night before procedure polyethylene glycol 3350 (MIRALAX, GLYCOLAX) 17 gram/dose powder PLACE (ONE SCOOP) IN 8 OZ OF WATER DAILY UNTIL STOOLS ARE REGULAR UP TO TWO(2) WEEKS lisinopril (ZESTRIL, PRINIVIL) 20 mg tablet Take 1 tablet by mouth once daily. omeprazole (PRILOSEC) 20 mg capsule Take 2 capsules by mouth daily before breakfast. 1/2 hr before meal. gabapentin (NEURONTIN) 300 mg capsule Take 1 capsule by mouth three times daily for 90 days. baclofen (LIORESAL) 10 mg tablet TAKE 1 TABLET BY MOUTH TWICE A DAY amantadine HCl (SYMMETREL) 100 mg capsule Take 100 mg by mouth twice daily. ALPRAZolam (XANAX) 0.5 mg tablet 1 TABLET BY MOUTH TAKE 30 MINUTES PRIOR TO MRI acetaminophen (TYLENOL EXTRA STRENGTH) 500 mg tablet Take 500 mg by mouth every 8 hours as needed. REVIEW OF SYSTEMS Review of Systems Constitutional: Negative. Respiratory: Negative. Cardiovascular: Negative. Gastrointestinal: Negative. Genitourinary: Negative. Skin: Negative. Neurological: Negative. Psychiatric/Behavioral: Negative. HISTORIES PAST MEDICAL HISTORY Diagnosis Date - Chronic back pain pinched nerves in back - Chronic left SI joint pain 03/23/2017 - Essential hypertension, benign 07/06/2012 - Fibromyalgia - Hyperlipidemia - Irritable bowel syndrome with both constipation and diarrhea 04/19/2017 - Lumbar radiculopathy 04/12/2017 - Renal calculus, right 04/19/2017 - Scoliosis of thoracolumbar spine 03/23/2017 - Situational depression 09/10/2017 - Thoracic radiculopathy due to degenerative joint disease of spine 12/01/2013 FAMILY HISTORY Problem Relation Age of Onset - Ischemic Heart Disease Father FATHER SIDE OF FAMILY HISTORY OF HEART ATTACKS SOCIAL HISTORY Social History Tobacco Use - Smoking status: Never Smoker - Smokeless tobacco: Never Used Vaping Use - Vaping Use: Never used Substance Use Topics - Alcohol use: No - Drug use: No PHYSICAL EXAMINATION General appearance: Well appearing, alert, in no acute distress and well-hydrated, well nourished Skin: Skin color, texture, turgor normal, no suspicious rashes or lesions Respiratory:+ effort Cardiovascular: Not examined GI: Normal abdominal exam, Abdomen soft, non-tender. No masses, organomegaly Musculoskeletal: Negative Neuro: Negative Genitourinary: not examined Impression: (N36.2) Urethral caruncle (primary encounter diagnosis) Plan: prn Nate Boateng Jr, MD 03/20/2021[facility]05-14-2021 NoteHNO ID: [id number] Author: Margo Baumann APRN.VEHICLE PAINTER Service: Anesthesiology Author Type: Nurse Fine Artist Type: Anesthesia Procedure Notes Filed: 02/28/2021 10:43 AM Note Text: ANESTHESIOLOGY PROCEDURE NOTE Airway General Information Procedure Start Time/Medication Administration: 02/28/2021 10:37 AM Patient location during procedure: OR Consent Obtained: Yes Patient identity confirmed: patient and arm band Staffing VEHICLE PAINTER: Margo Baumann APRN.VEHICLE PAINTER Performed by: VEHICLE PAINTER Indications and Patient Condition Preoxygenated: yes Difficult Mask: No Indications for airway management: anesthesia anesthesia circuit Method: asleep Final Airway Details Final airway type: supraglottic airway Number of attempts at approach: 1 Final Supraglottic Airway: i-gel Size 3 Seal Adequate: yes SIGNATURE: Margo Baumann APRN.VEHICLE PAINTER PATIENT NAME: Katheryn Orantes DATE: February 28, 2021 TIME: 10:42 AM [facility]: [id number] NoteHNO ID: [id number] Author: Dariusz Laboy Service: ? Author Type: Physician Type: Procedures Filed: 09/08/2020 9:13 PM Note Text: HPI Kathreyn Orantes is a 70 year old female who presents with pain here for injecton Review of Systems REVIEW OF SYTEMS: Systemic Symptoms: Negative except as noted. Head Symptoms: Negative except as noted. Pulmonary Symptoms: Negative except as noted. Other ROS: Negative except as noted. Cardiovascular Symptoms: Negative except as noted. Gastrointestinal Symptoms: Negative except as noted. Genitourinary Symptoms: Negative except as noted. Neurological Symptoms: Negative except as noted. Endocrine Symptoms: Negative except as noted. Hematologic Symptoms: No History of Easy Bleeding. No History of Bruising. Musculoskeletal Symptoms: Negative except as noted. Skin Symptoms: Negative except as noted. Psychiatric Symptoms: Not feeling depressed. Not thinking about suicide. PAST MEDICAL HISTORY Diagnosis Date - Chronic back pain pinched nerves in back - Chronic left SI joint pain 03/23/2017 - Essential hypertension, benign 07/06/2012 - Fibromyalgia - Hyperlipidemia - Irritable bowel syndrome with both constipation and diarrhea 04/19/2017 - Irritable bowel syndrome with constipation 09/10/2017 - Lumbar radiculopathy 04/12/2017 - Renal calculus, right 04/19/2017 - Scoliosis of thoracolumbar spine 03/23/2017 - Situational depression 09/10/2017 - Thoracic radiculopathy due to degenerative joint disease of spine 12/01/2013 PAST SURGICAL HISTORY Procedure Laterality Date - COLONOSCOPY W/BX 2-1-13 - COLONOSCOPY W/BX 05/11/2017 Normal colonoscopy, normal terminal ileum-unremarkable biopsies - EGD W/O BRSH SPECIMEN W/BX 05/11/2017 Mild reflux otherwise normal-unremarkable biopsies - EGD W/O OR W/BRUSH/WASH 07/05/2018 EGD - LAPAROSCOPIC CHOLEYCYSTECTOMY 12/01/2012 with ventral hernia repair Family History Problem Relation Age of Onset - Ischemic Heart Disease Father FATHER SIDE OF FAMILY HISTORY OF HEART ATTACKS Social History Tobacco Use - Smoking status: Never Smoker - Smokeless tobacco: Never Used Substance Use Topics - Alcohol use: No - Drug use: No Current Outpatient Medications Medication Sig Dispense Refill - cephALEXin (KEFLEX) 500 mg capsule Take 1 capsule by mouth three times daily for 7 days. 21 capsule 0 - baclofen (LIORESAL) 10 mg tablet Take 1 tablet by mouth twice daily. 60 tablet 0 - acetaminophen (TYLENOL EXTRA STRENGTH) 500 mg tablet Take 500 mg by mouth every 8 hours as needed. - diclofenac sodium (VOLTAREN) 1 % topical gel Apply 4 g to affected area four times daily. To lower back and right hip 100 g 1 - gabapentin (NEURONTIN) 100 mg capsule Take 2 capsules by mouth three times daily as needed for up to 90 days. 540 capsule 0 - lisinopril (ZESTRIL, PRINIVIL) 20 mg tablet Take 1 tablet by mouth once daily. 90 tablet 3 - omeprazole (PRILOSEC) 20 mg capsule Take 2 capsules by mouth daily before breakfast. 1/2 hr before meal. 180 capsule 3 - ondansetron orally disintegrating (ZOFRAN ODT) 4 mg disintegrating tablet Take 1-2 tablets by mouth every 6 hours as needed for Nausea/Vomiting. (Patient not taking: Reported on 08/08/2020 ) 6 tablet 0 - polyethylene glycol 3350 (MIRALAX, GLYCOLAX) 17 gram/dose powder PLACE (ONE SCOOP) IN 8 OZ OF WATER DAILY UNTIL STOOLS ARE REGULAR UP TO TWO(2) WEEKS (Patient not taking: Reported on 08/08/2020 ) 527 g 5 No current facility-administered medications for this visit. Objective Constitutional: Normal Good Appearance Oriented to Time, Place and Person Skin: Normal Examination of The Skin Eyes: Normal Examination of The Eyes Anicteric, EOMI ENT: Normal Lung Exam: Non-labored respirations Cardiovascular Exam: Normal Heart Rate and Rhythm Abdominal Exam: Normal Examination of the Abdomen Neuro: CN grossly intact Psych: Mood appropriate for given condition Nursing note and vitals reviewed.Time Out to confirm patient name, date of , procedure site, laterality, and allergies performed by physician time [id number], procedure [id number], procedure end 1126). Assessment and Plan I had a nice discussion with the patient today about their current pain and the pathology that could be causing it. We discussed different treatment options. Our plan will be as follows: Encounter Diagnosis ICD-10-CM 1. Trochanteric bursitis of right hip M70.61 ropivacaine (PF) 2 mg/mL (0.2 %) 7.5 mg injection (NAROPIN) methylPREDNISolone acetate 40 mg injection (DEPO-Medrol) PROCEDURE NOTE: The RIGHT lateral hip is prepped with alcohol, betadine, then alcohol again. Using sterile technique the RIGHT greater trochanteric bursa is injected with 3 cc of 0.2% ROPIVIcaine, 1 cc of Depomedrol (40mg/cc). The injection was tolerated:well. Post injection: There was an improvement in gait. There was a decrease in discomfort.[facility]11-19-2020 Note Procedure (SPAGWO) KATHERYN ORANTES ([id number]) 1950 F Date Time Provider Department 09/05/20 10:45 AM DARISUZ LABOY During your visit today, we recorded the following information about you: Temperature Weight Height 97.5 degrees 63.5 kg 1.651 m Dariusz Laboy MD 09/08/2020 9:13 PM Signed HPI Katheryn Ibrahimer is a 70 year old female who presents with pain here for injecton Review of Systems REVIEW OF SYTEMS: Systemic Symptoms: Negative except as noted. Head Symptoms: Negative except as noted. Pulmonary Symptoms: Negative except as noted. Other ROS: Negative except as noted. Cardiovascular Symptoms: Negative except as noted. Gastrointestinal Symptoms: Negative except as noted. Genitourinary Symptoms: Negative except as noted. Neurological Symptoms: Negative except as noted. Endocrine Symptoms: Negative except as noted. Hematologic Symptoms: No History of Easy Bleeding. No History of Bruising. Musculoskeletal Symptoms: Negative except as noted. Skin Symptoms: Negative except as noted. Psychiatric Symptoms: Not feeling depressed. Not thinking about suicide. PAST MEDICAL HISTORY Diagnosis Date - Chronic back pain pinched nerves in back - Chronic left SI joint pain 03/23/2017 - Essential hypertension, benign 07/06/2012 - Fibromyalgia - Hyperlipidemia - Irritable bowel syndrome with both constipation and diarrhea 04/19/2017 - Irritable bowel syndrome with constipation 09/10/2017 - Lumbar radiculopathy 04/12/2017 - Renal calculus, right 04/19/2017 - Scoliosis of thoracolumbar spine 03/23/2017 - Situational depression 09/10/2017 - Thoracic radiculopathy due to degenerative joint disease of spine 12/01/2013 PAST SURGICAL HISTORY Procedure Laterality Date - COLONOSCOPY W/BX 2-1-13 - COLONOSCOPY W/BX 05/11/2017 Normal colonoscopy, normal terminal ileum-unremarkable biopsies - EGD W/O BRSH SPECIMEN W/BX 05/11/2017 Mild reflux otherwise normal-unremarkable biopsies - EGD W/O OR W/BRUSH/WASH 07/05/2018 EGD - LAPAROSCOPIC CHOLEYCYSTECTOMY 12/01/2012 with ventral hernia repair Family History Problem Relation Age of Onset - Ischemic Heart Disease Father FATHER SIDE OF FAMILY HISTORY OF HEART ATTACKS Social History Tobacco Use - Smoking status: Never Smoker - Smokeless tobacco: Never Used Substance Use Topics - Alcohol use: No - Drug use: No Current Outpatient Medications Medication Sig Dispense Refill - cephALEXin (KEFLEX) 500 mg capsule Take 1 capsule by mouth three times daily for 7 days. 21 capsule 0 - baclofen (LIORESAL) 10 mg tablet Take 1 tablet by mouth twice daily. 60 tablet 0 - acetaminophen (TYLENOL EXTRA STRENGTH) 500 mg tablet Take 500 mg by mouth every 8 hours as needed. - diclofenac sodium (VOLTAREN) 1 % topical gel Apply 4 g to affected area four times daily. To lower back and right hip 100 g 1 - gabapentin (NEURONTIN) 100 mg capsule Take 2 capsules by mouth three times daily as needed for up to 90 days. 540 capsule 0 - lisinopril (ZESTRIL, PRINIVIL) 20 mg tablet Take 1 tablet by mouth once daily. 90 tablet 3 - omeprazole (PRILOSEC) 20 mg capsule Take 2 capsules by mouth daily before breakfast. 1/2 hr before meal. 180 capsule 3 - ondansetron orally disintegrating (ZOFRAN ODT) 4 mg disintegrating tablet Take 1-2 tablets by mouth every 6 hours as needed for Nausea/Vomiting. (Patient not taking: Reported on 08/08/2020 ) 6 tablet 0 - polyethylene glycol 3350 (MIRALAX, GLYCOLAX) 17 gram/dose powder PLACE (ONE SCOOP) IN 8 OZ OF WATER DAILY UNTIL STOOLS ARE REGULAR UP TO TWO(2) WEEKS (Patient not taking: Reported on 08/08/2020 ) 527 g 5 No current facility-administered medications for this visit. Objective Constitutional: Normal Good Appearance Oriented to Time, Place and Person Skin: Normal Examination of The Skin Eyes: Normal Examination of The Eyes Anicteric, EOMI ENT: Normal Lung Exam: Non-labored respirations Cardiovascular Exam: Normal Heart Rate and Rhythm Abdominal Exam: Normal Examination of the Abdomen Neuro: CN grossly intact Psych: Mood appropriate for given condition Nursing note and vitals reviewed.Time Out to confirm patient name, date of , procedure site, laterality, and allergies performed by physician time [id number], procedure [id number], procedure end 1126). Assessment and Plan I had a nice discussion with the patient today about their current pain and the pathology that could be causing it. We discussed different treatment options. Our plan will be as follows: Encounter Diagnosis ICD-10-CM 1. Trochanteric bursitis of right hip M70.61 ropivacaine (PF) 2 mg/mL (0.2 %) 7.5 mg injection (NAROPIN) methylPREDNISolone acetate 40 mg injection (DEPO-Medrol) PROCEDURE NOTE: The RIGHT lateral hip is prepped with alcohol, betadine, then alcohol again. Using s (more content not included)...[facility]10-22-2020 NoteHNO ID: [id number] Author: Jaudat Narda Service: ? Author Type: Physician Type: Progress Notes Filed: 08/08/2020 10:47 AM Note Text: [facility] [place] Initial Evaluation Form CHIEF COMPLAINT: LBP Bilat leg pain Right hip pain Referred by: SELF HPI August 08, 2020: Katheryn Orantes is a 70 year old female presenting to the office for evaluation and treatment of LBP, bilat leg, and right hip pain ongoing for >10 years, but trish worsening over the past x6. Patient states that she has recently completed physical therapy, which was stopped after she was not receiving significant benefit. 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 Pain currently 6-04/26 PAIN DETAIL: Location: LBP, right hip pain Radiation: BLE Onset: >10 years Timing of Pain: frequently Pain Quality: burning, tingling, muscle spasms, tender, shooting, cramps Alleviating: rest Exacerbating: activity, movement Prior therapies: gabapentin, tyl, voltaren topical, PT (compelted x2m) doing HEP as tolerated at home ADDITIONAL SYMPTOMS: No changes in urinary habits. No changes in bowel movement frequency. Able to restrain bowel movement. PAST MEDICAL HISTORY: PAST MEDICAL HISTORY Diagnosis Date - Chronic back pain pinched nerves in back - Chronic left SI joint pain 03/23/2017 - Essential hypertension, benign 07/06/2012 - Fibromyalgia - Hyperlipidemia - Irritable bowel syndrome with both constipation and diarrhea 04/19/2017 - Irritable bowel syndrome with constipation 09/10/2017 - Lumbar radiculopathy 04/12/2017 - Renal calculus, right 04/19/2017 - Scoliosis of thoracolumbar spine 03/23/2017 - Situational depression 09/10/2017 - Thoracic radiculopathy due to degenerative joint disease of spine 12/01/2013 PAST SURGICAL HISTORY: PAST SURGICAL HISTORY Procedure Laterality Date - COLONOSCOPY W/BX 2-1-13 - COLONOSCOPY W/BX 05/11/2017 Normal colonoscopy, normal terminal ileum-unremarkable biopsies - EGD W/O BRSH SPECIMEN W/BX 05/11/2017 Mild reflux otherwise normal-unremarkable biopsies - EGD W/O OR W/BRUSH/WASH 07/05/2018 EGD - LAPAROSCOPIC CHOLEYCYSTECTOMY 12/01/2012 with ventral hernia repair SOCIAL HISTORY: Social History Tobacco Use - Smoking status: Never Smoker - Smokeless tobacco: Never Used Substance Use Topics - Alcohol use: No - Drug use: No Social History Social History Narrative Not on file - Illicits: denies - EtOH: denies FAMILY HISTORY: FAMILY HISTORY Problem Relation Age of Onset - Ischemic Heart Disease Father FATHER SIDE OF FAMILY HISTORY OF HEART ATTACKS Reviewed, no history of chronic pain in parents, and is non-contributory MEDICATIONS: Current Outpatient Medications Medication Sig Dispense Refill - acetaminophen (TYLENOL EXTRA STRENGTH) 500 mg tablet Take 500 mg by mouth every 8 hours as needed. - carbidopa-levodopa (SINEMET) 10-100 mg per tablet Take 1 tablet by mouth three times daily. 90 tablet 1 - diclofenac sodium (VOLTAREN) 1 % topical gel Apply 4 g to affected area four times daily. To lower back and right hip 100 g 1 - gabapentin (NEURONTIN) 100 mg capsule Take 2 capsules by mouth three times daily as needed for up to 90 days. 540 capsule 0 - lisinopril (ZESTRIL, PRINIVIL) 20 mg tablet Take 1 tablet by mouth once daily. 90 tablet 3 - omeprazole (PRILOSEC) 20 mg capsule Take 2 capsules by mouth daily before breakfast. 1/2 hr before meal. 180 capsule 3 - chlorzoxazone (PARAFON FORTE DSC) 500 mg tablet Take 1 tablet by mouth three times daily as needed for Muscle Spasm. 90 tablet 1 - ondansetron orally disintegrating (ZOFRAN ODT) 4 mg disintegrating tablet Take 1-2 tablets by mouth every 6 hours as needed for Nausea/Vomiting. (Patient not taking: Reported on 08/08/2020 ) 6 tablet 0 - polyethylene glycol 3350 (MIRALAX, GLYCOLAX) 17 gram/dose powder PLACE (ONE SCOOP) IN 8 OZ OF WATER DAILY UNTIL STOOLS ARE REGULAR UP TO TWO(2) WEEKS (Patient not taking: Reported on 08/08/2020 ) 527 g 5 No current facility-administered medications for this visit. REVIEW OF SYTEMS: Systemic Symptoms: Negative except as noted. Head Symptoms: Negative except as noted. Pulmonary Symptoms: Negative except as noted. Other ROS: Negative except as noted. Cardiovascular Symptoms: Negative except as noted. Gastrointestinal Symptoms: Negative except as noted. Genitourinary Symptoms: Negative except as noted. Neurological Symptoms: Negative except as noted. Endocrine Symptoms: Negative except as noted. Hematologic Symptoms: No History of Easy Bleeding. No History of Bruising. Musculoskeletal Symptoms: Negative except as noted. Skin Symptoms: Negative except as noted. Psychiatric Symptoms: Not feeling depressed. Not thinking about suicide. 08/08/20 0946 Temp: (more content not included)...[facility]06-01-2020 History of Past illness Narrative* Problem Noted Date Resolved Date Osteoarthritis of spine with radiculopathy, lumb ar region 03/18/2020 05/31/2021 Other spondylosis with radiculopathy, lumbar reg ion 02/28/2020 05/31/2021 Irritable bowel syndrome with constipation 09/1005/31/2021 Lumbar radiculopathy 04/12/2017 05/31/2021 Spondylosis of lumbar region without myelopathy or radiculopathy 03/23/2017 05/31/2021 Thoracic radiculopathy due t o degenerative joint disease of spine 12/01/2013 03/20/2019 Esophagitis, unspecified 11/18/2012 018 Chronic cholecystitis 11/14/2012 03/16/2018 Abdominal wall mass 11/14/2012 03/16/2018 Brachial neuritis or radiculitis NOS 11/24/2007 03/16/2018 Myalgia and myositis, unspecified 11/12/2005 03/23/2017 documented as of this encounter (statuses as of 02/13/2022) [facility]06-01-2020 History of Past illness Narrative* Problem Noted Date Resolved Date Osteoarthritis of spine with radiculopathy, lumb ar region 03/18/2020 05/31/2021 Other spondylosis with radiculopathy, lumbar reg ion 02/28/2020 05/31/2021 Irritable bowel syndrome with constipation 09/1005/31/2021 Lumbar radiculopathy 04/12/2017 05/31/2021 Spondylosis of lumbar region without myelopathy or radiculopathy 03/23/2017 05/31/2021 Thoracic radiculopathy due t o degenerative joint disease of spine 12/01/2013 03/20/2019 Esophagitis, unspecified 11/18/2012 018 Chronic cholecystitis 11/14/2012 03/16/2018 Abdominal wall mass 11/14/2012 03/16/2018 Brachial neuritis or radiculitis NOS 11/24/2007 03/16/2018 Myalgia and myositis, unspecified 11/12/2005 03/23/2017 documented as of this encounter (statuses as of 02/17/2022) [facility]06-01-2020 History of Past illness Narrative* Problem Noted Date Resolved Date Osteoarthritis of spine with radiculopathy, lumb ar region 03/18/2020 05/31/2021 Other spondylosis with radiculopathy, lumbar reg ion 02/28/2020 05/31/2021 Irritable bowel syndrome with constipation 09/1005/31/2021 Lumbar radiculopathy 04/12/2017 05/31/2021 Spondylosis of lumbar region without myelopathy or radiculopathy 03/23/2017 05/31/2021 Thoracic radiculopathy due t o degenerative joint disease of spine 12/01/2013 03/20/2019 Esophagitis, unspecified 11/18/2012 018 Chronic cholecystitis 11/14/2012 03/16/2018 Abdominal wall mass 11/14/2012 03/16/2018 Brachial neuritis or radiculitis NOS 11/24/2007 03/16/2018 Myalgia and myositis, unspecified 11/12/2005 03/23/2017 documented as of this encounter (statuses as of 03/18/2022) [facility]06-[facility] History of Past illness Narrative* Problem Noted Date Resolved Date Osteoarthritis of spine with radiculopathy, lumb ar region 03/18/2020 05/31/2021 Other spondylosis with radiculopathy, lumbar reg ion 02/28/2020 05/31/2021 Irritable bowel syndrome with constipation 09/1005/31/2021 Lumbar radiculopathy 04/12/2017 05/31/2021 Spondylosis of lumbar region without myelopathy or radiculopathy 03/23/2017 05/31/2021 Thoracic radiculopathy due t o degenerative joint disease of spine 12/01/2013 03/20/2019 Esophagitis, unspecified 11/18/2012 018 Chronic cholecystitis 11/14/2012 03/16/2018 Abdominal wall mass 11/14/2012 03/16/2018 Brachial neuritis or radiculitis NOS 11/24/2007 03/16/2018 Myalgia and myositis, unspecified 11/12/2005 03/23/2017 documented as of this encounter (statuses as of 03/19/2022) [facility]06-01[facility] History of Past illness Narrative* Problem Noted Date Resolved Date Osteoarthritis of spine with radiculopathy, lumb ar region 03/18/2020 05/31/2021 Other spondylosis with radiculopathy, lumbar reg ion 02/28/2020 05/31/2021 Irritable bowel syndrome with constipation 09/1005/31/2021 Lumbar radiculopathy 04/12/2017 05/31/2021 Spondylosis of lumbar region without myelopathy or radiculopathy 03/23/2017 05/31/2021 Thoracic radiculopathy due t o degenerative joint disease of spine 12/01/2013 03/20/2019 Esophagitis, unspecified 11/18/2012 018 Chronic cholecystitis 11/14/2012 03/16/2018 Abdominal wall mass 11/14/2012 03/16/2018 Brachial neuritis or radiculitis NOS 11/24/2007 03/16/2018 Myalgia and myositis, unspecified 11/12/2005 03/23/2017 documented as of this encounter (statuses as of 03/20/2022) [facility]06-[facility] History of Past illness Narrative* Problem Noted Date Resolved Date Osteoarthritis of spine with radiculopathy, lumb ar region 03/18/2020 05/31/2021 Other spondylosis with radiculopathy, lumbar reg ion 02/28/2020 05/31/2021 Irritable bowel syndrome with constipation 09/1005/31/2021 Lumbar radiculopathy 04/12/2017 05/31/2021 Spondylosis of lumbar region without myelopathy or radiculopathy 03/23/2017 05/31/2021 Thoracic radiculopathy due t o degenerative joint disease of spine 12/01/2013 03/20/2019 Esophagitis, unspecified 11/18/2012 018 Chronic cholecystitis 11/14/2012 03/16/2018 Abdominal wall mass 11/14/2012 03/16/2018 Brachial neuritis or radiculitis NOS 11/24/2007 03/16/2018 Myalgia and myositis, unspecified 11/12/2005 03/23/2017 documented as of this encounter (statuses as of 03/20/2022) [facility]06[facility] History of Past illness Narrative* Problem Noted Date Resolved Date Osteoarthritis of spine with radiculopathy, lumb ar region 03/18/2020 05/31/2021 Other spondylosis with radiculopathy, lumbar reg ion 02/28/2020 05/31/2021 Irritable bowel syndrome with constipation 09/1005/31/2021 Lumbar radiculopathy 04/12/2017 05/31/2021 Spondylosis of lumbar region without myelopathy or radiculopathy 03/23/2017 05/31/2021 Thoracic radiculopathy due t o degenerative joint disease of spine 12/01/2013 03/20/2019 Esophagitis, unspecified 11/18/2012 018 Chronic cholecystitis 11/14/2012 03/16/2018 Abdominal wall mass 11/14/2012 03/16/2018 Brachial neuritis or radiculitis NOS 11/24/2007 03/16/2018 Myalgia and myositis, unspecified 11/12/2005 03/23/2017 documented as of this encounter (statuses as of 03/26/2022) [facility]06[facility] History of Past illness Narrative* Problem Noted Date Resolved Date Osteoarthritis of spine with radiculopathy, lumb ar region 03/18/2020 05/31/2021 Other spondylosis with radiculopathy, lumbar reg ion 02/28/2020 05/31/2021 Irritable bowel syndrome with constipation 09/1005/31/2021 Lumbar radiculopathy 04/12/2017 05/31/2021 Spondylosis of lumbar region without myelopathy or radiculopathy 03/23/2017 05/31/2021 Thoracic radiculopathy due t o degenerative joint disease of spine 12/01/2013 03/20/2019 Esophagitis, unspecified 11/18/2012 018 Chronic cholecystitis 11/14/2012 03/16/2018 Abdominal wall mass 11/14/2012 03/16/2018 Brachial neuritis or radiculitis NOS 11/24/2007 03/16/2018 Myalgia and myositis, unspecified 11/12/2005 03/23/2017 documented as of this encounter (statuses as of 03/26/2022) [facility]06[facility] History of Past illness Narrative* Problem Noted Date Resolved Date Osteoarthritis of spine with radiculopathy, lumb ar region 03/18/2020 05/31/2021 Other spondylosis with radiculopathy, lumbar reg ion 02/28/2020 05/31/2021 Irritable bowel syndrome with constipation 09/1005/31/2021 Lumbar radiculopathy 04/12/2017 05/31/2021 Spondylosis of lumbar region without myelopathy or radiculopathy 03/23/2017 05/31/2021 Thoracic radiculopathy due t o degenerative joint disease of spine 12/01/2013 03/20/2019 Esophagitis, unspecified 11/18/2012 018 Chronic cholecystitis 11/14/2012 03/16/2018 Abdominal wall mass 11/14/2012 03/16/2018 Brachial neuritis or radiculitis NOS 11/24/2007 03/16/2018 Myalgia and myositis, unspecified 11/12/2005 03/23/2017 documented as of this encounter (statuses as of 03/28/2022) [facility]06[facility] History of Past illness Narrative* Problem Noted Date Resolved Date Osteoarthritis of spine with radiculopathy, lumb ar region 03/18/2020 05/31/2021 Other spondylosis with radiculopathy, lumbar reg ion 02/28/2020 05/31/2021 Irritable bowel syndrome with constipation 09/1005/31/2021 Lumbar radiculopathy 04/12/2017 05/31/2021 Spondylosis of lumbar region without myelopathy or radiculopathy 03/23/2017 05/31/2021 Thoracic radiculopathy due t o degenerative joint disease of spine 12/01/2013 03/20/2019 Esophagitis, unspecified 11/18/2012 018 Chronic cholecystitis 11/14/2012 03/16/2018 Abdominal wall mass 11/14/2012 03/16/2018 Brachial neuritis or radiculitis NOS 11/24/2007 03/16/2018 Myalgia and myositis, unspecified 11/12/2005 03/23/2017 documented as of this encounter (statuses as of 03/30/2022) [facility]2020 History of Past illness Narrative* Problem Noted Date Resolved Date Osteoarthritis of spine with radiculopathy, lumb ar region 03/18/2020 05/31/2021 Other spondylosis with radiculopathy, lumbar reg ion 02/28/2020 05/31/2021 Irritable bowel syndrome with constipation 09/1005/31/2021 Lumbar radiculopathy 04/12/2017 05/31/2021 Spondylosis of lumbar region without myelopathy or radiculopathy 03/23/2017 05/31/2021 Thoracic radiculopathy due t o degenerative joint disease of spine 12/01/2013 03/20/2019 Esophagitis, unspecified 11/18/2012 018 Chronic cholecystitis 11/14/2012 03/16/2018 Abdominal wall mass 11/14/2012 03/16/2018 Brachial neuritis or radiculitis NOS 11/24/2007 03/16/2018 Myalgia and myositis, unspecified 11/12/2005 03/23/2017 documented as of this encounter (statuses as of 03/31/2022) [facility] History of Past illness Narrative* Problem Noted Date Resolved Date Osteoarthritis of spine with radiculopathy, lumb ar region 03/18/2020 05/31/2021 Other spondylosis with radiculopathy, lumbar reg ion 02/28/2020 05/31/2021 Irritable bowel syndrome with constipation 09/1005/31/2021 Lumbar radiculopathy 04/12/2017 05/31/2021 Spondylosis of lumbar region without myelopathy or radiculopathy 03/23/2017 05/31/2021 Thoracic radiculopathy due t o degenerative joint disease of spine 12/01/2013 03/20/2019 Esophagitis, unspecified 11/18/2012 018 Chronic cholecystitis 11/14/2012 03/16/2018 Abdominal wall mass 11/14/2012 03/16/2018 Brachial neuritis or radiculitis NOS 11/24/2007 03/16/2018 Myalgia and myositis, unspecified 11/12/2005 03/23/2017 documented as of this encounter (statuses as of 04/07/2022) [facility] History of Past illness Narrative* Problem Noted Date Resolved Date Osteoarthritis of spine with radiculopathy, lumb ar region 03/18/2020 05/31/2021 Other spondylosis with radiculopathy, lumbar reg ion 02/28/2020 05/31/2021 Irritable bowel syndrome with constipation 09/1005/31/2021 Lumbar radiculopathy 04/12/2017 05/31/2021 Spondylosis of lumbar region without myelopathy or radiculopathy 03/23/2017 05/31/2021 Thoracic radiculopathy due t o degenerative joint disease of spine 12/01/2013 03/20/2019 Esophagitis, unspecified 11/18/2012 018 Chronic cholecystitis 11/14/2012 03/16/2018 Abdominal wall mass 11/14/2012 03/16/2018 Brachial neuritis or radiculitis NOS 11/24/2007 03/16/2018 Myalgia and myositis, unspecified 11/12/2005 03/23/2017 documented as of this encounter (statuses as of 04/13/2022) [facility] History of Past illness Narrative* Problem Noted Date Resolved Date Osteoarthritis of spine with radiculopathy, lumb ar region 03/18/2020 05/31/2021 Other spondylosis with radiculopathy, lumbar reg ion 02/28/2020 05/31/2021 Irritable bowel syndrome with constipation 09/1005/31/2021 Lumbar radiculopathy 04/12/2017 05/31/2021 Spondylosis of lumbar region without myelopathy or radiculopathy 03/23/2017 05/31/2021 Thoracic radiculopathy due t o degenerative joint disease of spine 12/01/2013 03/20/2019 Esophagitis, unspecified 11/18/2012 018 Chronic cholecystitis 11/14/2012 03/16/2018 Abdominal wall mass 11/14/2012 03/16/2018 Brachial neuritis or radiculitis NOS 11/24/2007 03/16/2018 Myalgia and myositis, unspecified 11/12/2005 03/23/2017 documented as of this encounter (statuses as of 04/13/2022) [facility] History of Past illness Narrative* Problem Noted Date Resolved Date Osteoarthritis of spine with radiculopathy, lumb ar region 03/18/2020 05/31/2021 Other spondylosis with radiculopathy, lumbar reg ion 02/28/2020 05/31/2021 Irritable bowel syndrome with constipation 09/1005/31/2021 Lumbar radiculopathy 04/12/2017 05/31/2021 Spondylosis of lumbar region without myelopathy or radiculopathy 03/23/2017 05/31/2021 Thoracic radiculopathy due t o degenerative joint disease of spine 12/01/2013 03/20/2019 Esophagitis, unspecified 11/18/2012 018 Chronic cholecystitis 11/14/2012 03/16/2018 Abdominal wall mass 11/14/2012 03/16/2018 Brachial neuritis or radiculitis NOS 11/24/2007 03/16/2018 Myalgia and myositis, unspecified 11/12/2005 03/23/2017 documented as of this encounter (statuses as of 05/01/2022) [facility] History of Past illness Narrative* Problem Noted Date Resolved Date Osteoarthritis of spine with radiculopathy, lumb ar region 03/18/2020 05/31/2021 Other spondylosis with radiculopathy, lumbar reg ion 02/28/2020 05/31/2021 Irritable bowel syndrome with constipation 09/1005/31/2021 Lumbar radiculopathy 04/12/2017 05/31/2021 Spondylosis of lumbar region without myelopathy or radiculopathy 03/23/2017 05/31/2021 Thoracic radiculopathy due t o degenerative joint disease of spine 12/01/2013 03/20/2019 Esophagitis, unspecified 11/18/2012 018 Chronic cholecystitis 11/14/2012 03/16/2018 Abdominal wall mass 11/14/2012 03/16/2018 Brachial neuritis or radiculitis NOS 11/24/2007 03/16/2018 Myalgia and myositis, unspecified 11/12/2005 03/23/2017 documented as of this encounter (statuses as of 05/07/2022) [facility] History of Past illness Narrative* Problem Noted Date Resolved Date Osteoarthritis of spine with radiculopathy, lumb ar region 03/18/2020 05/31/2021 Other spondylosis with radiculopathy, lumbar reg ion 02/28/2020 05/31/2021 Irritable bowel syndrome with constipation 09/1005/31/2021 Lumbar radiculopathy 04/12/2017 05/31/2021 Spondylosis of lumbar region without myelopathy or radiculopathy 03/23/2017 05/31/2021 Thoracic radiculopathy due t o degenerative joint disease of spine 12/01/2013 03/20/2019 Esophagitis, unspecified 11/18/2012 018 Chronic cholecystitis 11/14/2012 03/16/2018 Abdominal wall mass 11/14/2012 03/16/2018 Brachial neuritis or radiculitis NOS 11/24/2007 03/16/2018 Myalgia and myositis, unspecified 11/12/2005 03/23/2017 documented as of this encounter (statuses as of 05/11/2022) [facility] History of Past illness Narrative* Problem Noted Date Resolved Date Osteoarthritis of spine with radiculopathy, lumb ar region 03/18/2020 05/31/2021 Other spondylosis with radiculopathy, lumbar reg ion 02/28/2020 05/31/2021 Irritable bowel syndrome with constipation 09/1005/31/2021 Lumbar radiculopathy 04/12/2017 05/31/2021 Spondylosis of lumbar region without myelopathy or radiculopathy 03/23/2017 05/31/2021 Thoracic radiculopathy due t o degenerative joint disease of spine 12/01/2013 03/20/2019 Esophagitis, unspecified 11/18/2012 018 Chronic cholecystitis 11/14/2012 03/16/2018 Abdominal wall mass 11/14/2012 03/16/2018 Brachial neuritis or radiculitis NOS 11/24/2007 03/16/2018 Myalgia and myositis, unspecified 11/12/2005 03/23/2017 documented as of this encounter (statuses as of 05/12/2022) [facility] History of Past illness Narrative* Problem Noted Date Resolved Date Osteoarthritis of spine with radiculopathy, lumb ar region 03/18/2020 05/31/2021 Other spondylosis with radiculopathy, lumbar reg ion 02/28/2020 05/31/2021 Irritable bowel syndrome with constipation 09/1005/31/2021 Lumbar radiculopathy 04/12/2017 05/31/2021 Spondylosis of lumbar region without myelopathy or radiculopathy 03/23/2017 05/31/2021 Thoracic radiculopathy due t o degenerative joint disease of spine 12/01/2013 03/20/2019 Esophagitis, unspecified 11/18/2012 018 Chronic cholecystitis 11/14/2012 03/16/2018 Abdominal wall mass 11/14/2012 03/16/2018 Brachial neuritis or radiculitis NOS 11/24/2007 03/16/2018 Myalgia and myositis, unspecified 11/12/2005 03/23/2017 documented as of this encounter (statuses as of 05/13/2022) [facility] History of Past illness Narrative* Problem Noted Date Resolved Date Osteoarthritis of spine with radiculopathy, lumb ar region 03/18/2020 05/31/2021 Other spondylosis with radiculopathy, lumbar reg ion 02/28/2020 05/31/2021 Irritable bowel syndrome with constipation 09/1005/31/2021 Lumbar radiculopathy 04/12/2017 05/31/2021 Spondylosis of lumbar region without myelopathy or radiculopathy 03/23/2017 05/31/2021 Thoracic radiculopathy due t o degenerative joint disease of spine 12/01/2013 03/20/2019 Esophagitis, unspecified 11/18/2012 018 Chronic cholecystitis 11/14/2012 03/16/2018 Abdominal wall mass 11/14/2012 03/16/2018 Brachial neuritis or radiculitis NOS 11/24/2007 03/16/2018 Myalgia and myositis, unspecified 11/12/2005 03/23/2017 documented as of this encounter (statuses as of 05/13/2022) [facility] History of Past illness Narrative* Problem Noted Date Resolved Date Osteoarthritis of spine with radiculopathy, lumb ar region 03/18/2020 05/31/2021 Other spondylosis with radiculopathy, lumbar reg ion 02/28/2020 05/31/2021 Irritable bowel syndrome with constipation 09/1005/31/2021 Lumbar radiculopathy 04/12/2017 05/31/2021 Spondylosis of lumbar region without myelopathy or radiculopathy 03/23/2017 05/31/2021 Thoracic radiculopathy due t o degenerative joint disease of spine 12/01/2013 03/20/2019 Esophagitis, unspecified 11/18/2012 018 Chronic cholecystitis 11/14/2012 03/16/2018 Abdominal wall mass 11/14/2012 03/16/2018 Brachial neuritis or radiculitis NOS 11/24/2007 03/16/2018 Myalgia and myositis, unspecified 11/12/2005 03/23/2017 documented as of this encounter (statuses as of 05/15/2022) [facility] History of Past illness Narrative* Problem Noted Date Resolved Date Osteoarthritis of spine with radiculopathy, lumb ar region 03/18/2020 05/31/2021 Other spondylosis with radiculopathy, lumbar reg ion 02/28/2020 05/31/2021 Irritable bowel syndrome with constipation 09/1005/31/2021 Lumbar radiculopathy 04/12/2017 05/31/2021 Spondylosis of lumbar region without myelopathy or radiculopathy 03/23/2017 05/31/2021 Thoracic radiculopathy due t o degenerative joint disease of spine 12/01/2013 03/20/2019 Esophagitis, unspecified 11/18/2012 018 Chronic cholecystitis 11/14/2012 03/16/2018 Abdominal wall mass 11/14/2012 03/16/2018 Brachial neuritis or radiculitis NOS 11/24/2007 03/16/2018 Myalgia and myositis, unspecified 11/12/2005 03/23/2017 documented as of this encounter (statuses as of 05/19/2022) [facility] History of Past illness Narrative* Problem Noted Date Resolved Date Osteoarthritis of spine with radiculopathy, lumb ar region 03/18/2020 05/31/2021 Other spondylosis with radiculopathy, lumbar reg ion 02/28/2020 05/31/2021 Irritable bowel syndrome with constipation 09/1005/31/2021 Lumbar radiculopathy 04/12/2017 05/31/2021 Spondylosis of lumbar region without myelopathy or radiculopathy 03/23/2017 05/31/2021 Thoracic radiculopathy due t o degenerative joint disease of spine 12/01/2013 03/20/2019 Esophagitis, unspecified 11/18/2012 018 Chronic cholecystitis 11/14/2012 03/16/2018 Abdominal wall mass 11/14/2012 03/16/2018 Brachial neuritis or radiculitis NOS 11/24/2007 03/16/2018 Myalgia and myositis, unspecified 11/12/2005 03/23/2017 documented as of this encounter (statuses as of 06/05/2022) [facility] History of Past illness Narrative* Problem Noted Date Resolved Date Osteoarthritis of spine with radiculopathy, lumb ar region 03/18/2020 05/31/2021 Other spondylosis with radiculopathy, lumbar reg ion 02/28/2020 05/31/2021 Irritable bowel syndrome with constipation 09/1005/31/2021 Lumbar radiculopathy 04/12/2017 05/31/2021 Spondylosis of lumbar region without myelopathy or radiculopathy 03/23/2017 05/31/2021 Thoracic radiculopathy due t o degenerative joint disease of spine 12/01/2013 03/20/2019 Esophagitis, unspecified 11/18/2012 018 Chronic cholecystitis 11/14/2012 03/16/2018 Abdominal wall mass 11/14/2012 03/16/2018 Brachial neuritis or radiculitis NOS 11/24/2007 03/16/2018 Myalgia and myositis, unspecified 11/12/2005 03/23/2017 documented as of this encounter (statuses as of 06/24/2022) [facility] History of Past illness Narrative* Problem Noted Date Resolved Date Osteoarthritis of spine with radiculopathy, lumb ar region 03/18/2020 05/31/2021 Other spondylosis with radiculopathy, lumbar reg ion 02/28/2020 05/31/2021 Irritable bowel syndrome with constipation 09/1005/31/2021 Lumbar radiculopathy 04/12/2017 05/31/2021 Spondylosis of lumbar region without myelopathy or radiculopathy 03/23/2017 05/31/2021 Thoracic radiculopathy due t o degenerative joint disease of spine 12/01/2013 03/20/2019 Esophagitis, unspecified 11/18/2012 018 Chronic cholecystitis 11/14/2012 03/16/2018 Abdominal wall mass 11/14/2012 03/16/2018 Brachial neuritis or radiculitis NOS 11/24/2007 03/16/2018 Myalgia and myositis, unspecified 11/12/2005 03/23/2017 documented as of this encounter (statuses as of 06/25/2022) [facility] History of Past illness Narrative* Problem Noted Date Resolved Date Osteoarthritis of spine with radiculopathy, lumb ar region 03/18/2020 05/31/2021 Other spondylosis with radiculopathy, lumbar reg ion 02/28/2020 05/31/2021 Irritable bowel syndrome with constipation 09/1005/31/2021 Lumbar radiculopathy 04/12/2017 05/31/2021 Spondylosis of lumbar region without myelopathy or radiculopathy 03/23/2017 05/31/2021 Thoracic radiculopathy due t o degenerative joint disease of spine 12/01/2013 03/20/2019 Esophagitis, unspecified 11/18/2012 018 Chronic cholecystitis 11/14/2012 03/16/2018 Abdominal wall mass 11/14/2012 03/16/2018 Brachial neuritis or radiculitis NOS 11/24/2007 03/16/2018 Myalgia and myositis, unspecified 11/12/2005 03/23/2017 documented as of this encounter (statuses as of 07/08/2022) [facility] History of Past illness Narrative* Problem Noted Date Resolved Date Osteoarthritis of spine with radiculopathy, lumb ar region 03/18/2020 05/31/2021 Other spondylosis with radiculopathy, lumbar reg ion 02/28/2020 05/31/2021 Irritable bowel syndrome with constipation 09/1005/31/2021 Lumbar radiculopathy 04/12/2017 05/31/2021 Spondylosis of lumbar region without myelopathy or radiculopathy 03/23/2017 05/31/2021 Thoracic radiculopathy due t o degenerative joint disease of spine 12/01/2013 03/20/2019 Esophagitis, unspecified 11/18/2012 018 Chronic cholecystitis 11/14/2012 03/16/2018 Abdominal wall mass 11/14/2012 03/16/2018 Brachial neuritis or radiculitis NOS 11/24/2007 03/16/2018 Myalgia and myositis, unspecified 11/12/2005 03/23/2017 documented as of this encounter (statuses as of 07/13/2022) [facility] History of Past illness Narrative* Problem Noted Date Resolved Date Osteoarthritis of spine with radiculopathy, lumb ar region 03/18/2020 05/31/2021 Other spondylosis with radiculopathy, lumbar reg ion 02/28/2020 05/31/2021 Irritable bowel syndrome with constipation 09/1005/31/2021 Lumbar radiculopathy 04/12/2017 05/31/2021 Spondylosis of lumbar region without myelopathy or radiculopathy 03/23/2017 05/31/2021 Thoracic radiculopathy due t o degenerative joint disease of spine 12/01/2013 03/20/2019 Esophagitis, unspecified 11/18/2012 018 Chronic cholecystitis 11/14/2012 03/16/2018 Abdominal wall mass 11/14/2012 03/16/2018 Brachial neuritis or radiculitis NOS 11/24/2007 03/16/2018 Myalgia and myositis, unspecified 11/12/2005 03/23/2017 documented as of this encounter (statuses as of 07/18/2022) [facility] History of Past illness Narrative* Problem Noted Date Resolved Date Osteoarthritis of spine with radiculopathy, lumb ar region 03/18/2020 05/31/2021 Other spondylosis with radiculopathy, lumbar reg ion 02/28/2020 05/31/2021 Irritable bowel syndrome with constipation 09/1005/31/2021 Lumbar radiculopathy 04/12/2017 05/31/2021 Spondylosis of lumbar region without myelopathy or radiculopathy 03/23/2017 05/31/2021 Thoracic radiculopathy due t o degenerative joint disease of spine 12/01/2013 03/20/2019 Esophagitis, unspecified 11/18/2012 018 Chronic cholecystitis 11/14/2012 03/16/2018 Abdominal wall mass 11/14/2012 03/16/2018 Brachial neuritis or radiculitis NOS 11/24/2007 03/16/2018 Myalgia and myositis, unspecified 11/12/2005 03/23/2017 documented as of this encounter (statuses as of 07/20/2022) [facility] History of Past illness Narrative* Problem Noted Date Resolved Date Osteoarthritis of spine with radiculopathy, lumb ar region 03/18/2020 05/31/2021 Other spondylosis with radiculopathy, lumbar reg ion 02/28/2020 05/31/2021 Irritable bowel syndrome with constipation 09/1005/31/2021 Lumbar radiculopathy 04/12/2017 05/31/2021 Spondylosis of lumbar region without myelopathy or radiculopathy 03/23/2017 05/31/2021 Thoracic radiculopathy due t o degenerative joint disease of spine 12/01/2013 03/20/2019 Esophagitis, unspecified 11/18/2012 018 Chronic cholecystitis 11/14/2012 03/16/2018 Abdominal wall mass 11/14/2012 03/16/2018 Brachial neuritis or radiculitis NOS 11/24/2007 03/16/2018 Myalgia and myositis, unspecified 11/12/2005 03/23/2017 documented as of this encounter (statuses as of 07/25/2022) [facility] History of Past illness Narrative* Problem Noted Date Resolved Date Osteoarthritis of spine with radiculopathy, lumb ar region 03/18/2020 05/31/2021 Other spondylosis with radiculopathy, lumbar reg ion 02/28/2020 05/31/2021 Irritable bowel syndrome with constipation 09/1005/31/2021 Lumbar radiculopathy 04/12/2017 05/31/2021 Spondylosis of lumbar region without myelopathy or radiculopathy 03/23/2017 05/31/2021 Thoracic radiculopathy due t o degenerative joint disease of spine 12/01/2013 03/20/2019 Esophagitis, unspecified 11/18/2012 018 Chronic cholecystitis 11/14/2012 03/16/2018 Abdominal wall mass 11/14/2012 03/16/2018 Brachial neuritis or radiculitis NOS 11/24/2007 03/16/2018 Myalgia and myositis, unspecified 11/12/2005 03/23/2017 documented as of this encounter (statuses as of 07/31/2022) [facility] History of Past illness Narrative* Problem Noted Date Resolved Date Osteoarthritis of spine with radiculopathy, lumb ar region 03/18/2020 05/31/2021 Other spondylosis with radiculopathy, lumbar reg ion 02/28/2020 05/31/2021 Irritable bowel syndrome with constipation 09/1005/31/2021 Lumbar radiculopathy 04/12/2017 05/31/2021 Spondylosis of lumbar region without myelopathy or radiculopathy 03/23/2017 05/31/2021 Thoracic radiculopathy due t o degenerative joint disease of spine 12/01/2013 03/20/2019 Esophagitis, unspecified 11/18/2012 018 Chronic cholecystitis 11/14/2012 03/16/2018 Abdominal wall mass 11/14/2012 03/16/2018 Brachial neuritis or radiculitis NOS 11/24/2007 03/16/2018 Myalgia and myositis, unspecified 11/12/2005 03/23/2017 documented as of this encounter (statuses as of 08/02/2022) [facility] History of Past illness Narrative* Problem Noted Date Resolved Date Osteoarthritis of spine with radiculopathy, lumb ar region 03/18/2020 05/31/2021 Other spondylosis with radiculopathy, lumbar reg ion 02/28/2020 05/31/2021 Irritable bowel syndrome with constipation 09/1005/31/2021 Lumbar radiculopathy 04/12/2017 05/31/2021 Spondylosis of lumbar region without myelopathy or radiculopathy 03/23/2017 05/31/2021 Thoracic radiculopathy due t o degenerative joint disease of spine 12/01/2013 03/20/2019 Esophagitis, unspecified 11/18/2012 018 Chronic cholecystitis 11/14/2012 03/16/2018 Abdominal wall mass 11/14/2012 03/16/2018 Brachial neuritis or radiculitis NOS 11/24/2007 03/16/2018 Myalgia and myositis, unspecified 11/12/2005 03/23/2017 documented as of this encounter (statuses as of 08/21/2022) [facility] History of Past illness Narrative* Problem Noted Date Resolved Date Osteoarthritis of spine with radiculopathy, lumb ar region 03/18/2020 05/31/2021 Other spondylosis with radiculopathy, lumbar reg ion 02/28/2020 05/31/2021 Irritable bowel syndrome with constipation 09/1005/31/2021 Lumbar radiculopathy 04/12/2017 05/31/2021 Spondylosis of lumbar region without myelopathy or radiculopathy 03/23/2017 05/31/2021 Thoracic radiculopathy due t o degenerative joint disease of spine 12/01/2013 03/20/2019 Esophagitis, unspecified 11/18/2012 018 Chronic cholecystitis 11/14/2012 03/16/2018 Abdominal wall mass 11/14/2012 03/16/2018 Brachial neuritis or radiculitis NOS 11/24/2007 03/16/2018 Myalgia and myositis, unspecified 11/12/2005 03/23/2017 documented as of this encounter (statuses as of 09/02/2022) [facility] History of Past illness Narrative* Problem Noted Date Resolved Date Osteoarthritis of spine with radiculopathy, lumb ar region 03/18/2020 05/31/2021 Other spondylosis with radiculopathy, lumbar reg ion 02/28/2020 05/31/2021 Irritable bowel syndrome with constipation 09/1005/31/2021 Lumbar radiculopathy 04/12/2017 05/31/2021 Spondylosis of lumbar region without myelopathy or radiculopathy 03/23/2017 05/31/2021 Thoracic radiculopathy due t o degenerative joint disease of spine 12/01/2013 03/20/2019 Esophagitis, unspecified 11/18/2012 018 Chronic cholecystitis 11/14/2012 03/16/2018 Abdominal wall mass 11/14/2012 03/16/2018 Brachial neuritis or radiculitis NOS 11/24/2007 03/16/2018 Myalgia and myositis, unspecified 11/12/2005 03/23/2017 documented as of this encounter (statuses as of 09/04/2022) [facility] History of Past illness Narrative* Problem Noted Date Resolved Date Osteoarthritis of spine with radiculopathy, lumb ar region 03/18/2020 05/31/2021 Other spondylosis with radiculopathy, lumbar reg ion 02/28/2020 05/31/2021 Irritable bowel syndrome with constipation 09/1005/31/2021 Lumbar radiculopathy 04/12/2017 05/31/2021 Spondylosis of lumbar region without myelopathy or radiculopathy 03/23/2017 05/31/2021 Thoracic radiculopathy due t o degenerative joint disease of spine 12/01/2013 03/20/2019 Esophagitis, unspecified 11/18/2012 018 Chronic cholecystitis 11/14/2012 03/16/2018 Abdominal wall mass 11/14/2012 03/16/2018 Brachial neuritis or radiculitis NOS 11/24/2007 03/16/2018 Myalgia and myositis, unspecified 11/12/2005 03/23/2017 documented as of this encounter (statuses as of 09/15/2022) [facility] History of Past illness Narrative* Problem Noted Date Resolved Date Osteoarthritis of spine with radiculopathy, lumb ar region 03/18/2020 05/31/2021 Other spondylosis with radiculopathy, lumbar reg ion 02/28/2020 05/31/2021 Irritable bowel syndrome with constipation 09/1005/31/2021 Lumbar radiculopathy 04/12/2017 05/31/2021 Spondylosis of lumbar region without myelopathy or radiculopathy 03/23/2017 05/31/2021 Thoracic radiculopathy due t o degenerative joint disease of spine 12/01/2013 03/20/2019 Esophagitis, unspecified 11/18/2012 018 Chronic cholecystitis 11/14/2012 03/16/2018 Abdominal wall mass 11/14/2012 03/16/2018 Brachial neuritis or radiculitis NOS 11/24/2007 03/16/2018 Myalgia and myositis, unspecified 11/12/2005 03/23/2017 documented as of this encounter (statuses as of 09/17/2022) [facility] History of Past illness Narrative* Problem Noted Date Resolved Date Osteoarthritis of spine with radiculopathy, lumb ar region 03/18/2020 05/31/2021 Other spondylosis with radiculopathy, lumbar reg ion 02/28/2020 05/31/2021 Irritable bowel syndrome with constipation 09/1005/31/2021 Lumbar radiculopathy 04/12/2017 05/31/2021 Spondylosis of lumbar region without myelopathy or radiculopathy 03/23/2017 05/31/2021 Thoracic radiculopathy due t o degenerative joint disease of spine 12/01/2013 03/20/2019 Esophagitis, unspecified 11/18/2012 018 Chronic cholecystitis 11/14/2012 03/16/2018 Abdominal wall mass 11/14/2012 03/16/2018 Brachial neuritis or radiculitis NOS 11/24/2007 03/16/2018 Myalgia and myositis, unspecified 11/12/2005 03/23/2017 documented as of this encounter (statuses as of 09/21/2022) [facility] History of Past illness Narrative* Problem Noted Date Resolved Date Osteoarthritis of spine with radiculopathy, lumb ar region 03/18/2020 05/31/2021 Other spondylosis with radiculopathy, lumbar reg ion 02/28/2020 05/31/2021 Irritable bowel syndrome with constipation 09/1005/31/2021 Lumbar radiculopathy 04/12/2017 05/31/2021 Spondylosis of lumbar region without myelopathy or radiculopathy 03/23/2017 05/31/2021 Thoracic radiculopathy due t o degenerative joint disease of spine 12/01/2013 03/20/2019 Esophagitis, unspecified 11/18/2012 018 Chronic cholecystitis 11/14/2012 03/16/2018 Abdominal wall mass 11/14/2012 03/16/2018 Brachial neuritis or radiculitis NOS 11/24/2007 03/16/2018 Myalgia and myositis, unspecified 11/12/2005 03/23/2017 documented as of this encounter (statuses as of 10/29/2022) [facility] History of Past illness Narrative* Problem Noted Date Resolved Date Osteoarthritis of spine with radiculopathy, lumb ar region 03/18/2020 05/31/2021 Other spondylosis with radiculopathy, lumbar reg ion 02/28/2020 05/31/2021 Irritable bowel syndrome with constipation 09/1005/31/2021 Lumbar radiculopathy 04/12/2017 05/31/2021 Spondylosis of lumbar region without myelopathy or radiculopathy 03/23/2017 05/31/2021 Thoracic radiculopathy due t o degenerative joint disease of spine 12/01/2013 03/20/2019 Esophagitis, unspecified 11/18/2012 018 Chronic cholecystitis 11/14/2012 03/16/2018 Abdominal wall mass 11/14/2012 03/16/2018 Brachial neuritis or radiculitis NOS 11/24/2007 03/16/2018 Myalgia and myositis, unspecified 11/12/2005 03/23/2017 documented as of this encounter (statuses as of 10/30/2022) [facility] note* Diagnosis Essential hypertension, benign documented in this encounter [facility] note* Diagnosis Parkinson's disease (HCC)- Primary Paralysis agitans Lumbar radiculopathy Thoracic or lumbosacral neuritis or radiculitis, unspecified Resting tremor Abnormal involuntary movements Situational depression Adjustment disorder with depressed mood Irritable bowel syndrome with both constipation and diarrhea Hernia Hernia of unspecified site of abdominal cavity without mention of obstruction or gangrene Thickened endometrium Nonspecific (abnormal) findings on radiological and other examination of genitourinary organs Proteinuria, unspecified type Essential hypertension, benign DDD (degenerative disc disease), lumbar Degeneration of lumbar or lumbosacral intervertebral disc Screening breast examination Breast screening, unspecified Asymptomatic postmenopausal status Need for hepatitis C screening test Special screening examination for other specified viral diseases documented in this encounter [facility]* Diagnosis Renal insufficiency- Primary Unspecified disorder of kidney and ureter Proteinuria, unspecified type Leukocytosis, unspecified type Pyuria Other nonspecific finding on examination of urine documented in this encounter [facility]* Diagnosis Hernia Hernia of unspecified site of abdominal cavity without mention of obstruction or gangrene documented in this encounter [facility]* Diagnosis PMB (postmenopausal bleeding)- Primary Postmenopausal bleeding documented in this encounter [facility]* Diagnosis Screening breast examination Breast screening, unspecified documented in this encounter [facility] note* Diagnosis Asymptomatic postmenopausal status documented in this encounter [facility]* Diagnosis PMB (postmenopausal bleeding) Postmenopausal bleeding documented in this encounter [facility]* Diagnosis PMB (postmenopausal bleeding)- Primary Postmenopausal bleeding documented in this encounter [facility]* Diagnosis PMB (postmenopausal bleeding)- Primary Postmenopausal bleeding Cervical stenosis (uterine cervix) Stricture and stenosis of cervix documented in this encounter [facility]* Diagnosis Pre-op evaluation- Primary Preoperative examination, unspecified PMB (postmenopausal bleeding) Postmenopausal bleeding PMB (postmenopausal bleeding) Postmenopausal bleeding Cervical stenosis (uterine cervix) Stricture and stenosis of cervix documented in this encounter [facility] note* Diagnosis Educational circumstances- Primary Educational circumstance PMB (postmenopausal bleeding) Postmenopausal bleeding Cervical stenosis (uterine cervix) Stricture and stenosis of cervix [facility] Educational circumstances- Primary Educational circumstance PMB (postmenopausal bleeding) Postmenopausal bleeding [facility] Diagnosis Pre-operative examination Preoperative examination, unspecified PMB (postmenopausal bleeding) Postmenopausal bleeding [facility] Diagnosis Pre-operative examination- Primary Preoperative examination, unspecified Essential hypertension, benign Parkinson's disease (HCC) Paralysis agitans Chronic gastritis without bleeding, unspecified gastritis type DDD (degenerative disc disease), lumbar Degeneration of lumbar or lumbosacral intervertebral disc Fibromyalgia Mylagia and myositis, unspecified PMB (postmenopausal bleeding) Postmenopausal bleeding [facility] Diagnosis Cervical stenosis (uterine cervix)- Primary Stricture and stenosis of cervix PMB (postmenopausal bleeding) Postmenopausal bleeding [facility] Diagnosis Dysuria- Primary [facility] Diagnosis Facet arthropathy- Primary Spondylosis of unspecified site without mention of myelopathy Lumbosacral spondylosis without myelopathy DDD (degenerative disc disease), lumbar Degeneration of lumbar or lumbosacral intervertebral disc Adolescent idiopathic scoliosis of lumbar region Scoliosis (and kyphoscoliosis), idiopathic [facility] Diagnosis Facet arthropathy- Primary Spondylosis of unspecified site without mention of myelopathy Lumbosacral spondylosis without myelopathy Myalgia Mylagia and myositis, unspecified Fibromyalgia Mylagia and myositis, unspecified Adolescent idiopathic scoliosis of lumbar region Scoliosis (and kyphoscoliosis), idiopathic Other chronic pain Facet arthropathy Spondylosis of unspecified site without mention of myelopathy Lumbosacral spondylosis without myelopathy DDD (degenerative disc disease), lumbar Degeneration of lumbar or lumbosacral intervertebral disc Adolescent idiopathic scoliosis of lumbar region Scoliosis (and kyphoscoliosis), idiopathic [facility]* Diagnosis Essential hypertension, benign- Primary Parkinson's disease (HCC) Paralysis agitans Cervical stenosis (uterine cervix) Stricture and stenosis of cervix DDD (degenerative disc disease), lumbar Degeneration of lumbar or lumbosacral intervertebral disc RUQ pain Abdominal pain, right upper quadrant Upper back pain Anemia, unspecified type Fall, subsequent encounter Facet arthropathy Spondylosis of unspecified site without mention of myelopathy Lumbosacral spondylosis without myelopathy DDD (degenerative disc disease), lumbar Degeneration of lumbar or lumbosacral intervertebral disc Adolescent idiopathic scoliosis of lumbar region Scoliosis (and kyphoscoliosis), idiopathic [facility] Diagnosis Left inguinal hernia- Primary Inguinal hernia without mention of obstruction or gangrene, unilateral or unspecified, (not specified as recurrent) [facility] Diagnosis S/P laparoscopic hernia repair- Primary Other postprocedural status [facility] Diagnosis Nausea- Primary Nausea alone Anxiety Anxiety state, unspecified History of hernia repair Other postprocedural status Edema of leg Edema Abdominal distention Flatulence, eructation, and gas pain Malaise Other malaise and fatigue [facility]* Diagnosis Nausea Nausea alone Essential hypertension, benign [facility]* Diagnosis Anxiety Anxiety state, unspecified Nausea Nausea alone [facility]* Diagnosis Treatment not available- Primary Procedure not carried out for other reasons [facility]* Diagnosis Myalgia- Primary Mylagia and myositis, unspecified Fibromyalgia Mylagia and myositis, unspecified Other chronic pain Lumbar foraminal stenosis Spinal stenosis, lumbar region, without neurogenic claudication Facet arthropathy Spondylosis of unspecified site without mention of myelopathy [facility]* Diagnosis Herpes zoster without complication- Primary Herpes zoster without mention of complication Parkinson's disease Paralysis agitans Fibromyalgia Mylagia and myositis, unspecified Essential hypertension, benign Chronic gastritis without bleeding, unspecified gastritis type Stage 3a chronic kidney disease (HCC) DDD (degenerative disc disease), lumbar Degeneration of lumbar or lumbosacral intervertebral disc Situational depression Adjustment disorder with depressed mood Anxiety Anxiety state, unspecified GERD without esophagitis Esophageal reflux Vitamin B12 deficiency Other B-complex deficiencies Need for influenza vaccination Need for prophylactic vaccination and inoculation against influenza [facility] Diagnosis Parkinson's disease without dyskinesia or fluctuating manifestations- Primary MCI (mild cognitive impairment) Mild cognitive impairment, so stated [facility] Diagnosis Chronic left SI joint pain Disorders of sacrum Fibromyalgia Mylagia and myositis, unspecified [facility] Diagnosis Hyperglycemia- Primary Other abnormal glucose [facility] this [facility]* Diagnosis Nausea Nausea alone Essential hypertension, benign documented in this encounter [facility] for referral (narrative)* Diagnostic Procedure Only (Routine) - Authorized Specialty Diagnoses / Procedures Referred By Jerome mata Referred To Contact [facility] Diagnoses Screening breast examination Procedures IDALIA SCREENING SCREENING MAMMOGRAPHY BI 2-VIEW BREAST INC CAD Sudarshan Mojica MD [address] [place] [address] [facility] [address] [place] [address] Referral ID Status Reason Start Date Expiration Date Visits Requested Visits Authorized [id number] Authorized Auto-Generat ed Referral 03/18/2022 04/17/2023 1 1 * Consult, Test, Treat (Routine) - Authorized Specialty Diagnoses / Procedures [facility]erred To Contact General Surgery Diagnoses Hernia Procedures CONSULT TO GENERAL SURGERY OFFICE/OUTPATIENT [facility] 60-74 MINUTES Sudarshan Mojica MD [address] [place] [address] Referral ID Status Reason Start Date Expiration Date Visits Requested Visits Authorized [id number] Authorized PCP Requested Referral 03/18/2022 03/18/2023 1 1 * Consult, Test, Treat (Routine) - Authorized Specialty Diagnoses / Procedures Referred By [facility] t Referred To Contact Gynecology Diagnoses Thickened endometrium Procedures CONSULT TO GYNECOLOGY OFFICE/OUTPATIENT [facility] 60-74 MINUTES Sudarshan Mojica MD [address] [place] [address] Referral ID Status Reason Start Date Expiration Date Visits Requested Visits Authorized [id number] Authorized PCP Requested Referral Auto-Generate d Referral 03/18/2022 03/18/2023 1 1 [facility] for referral (narrative)* Diagnostic Procedure Only (Routine) - Pending Review Specialty Diagnoses / Procedures Referred By Contac t Referred To Contact US IMAGING Diagnoses Renal insufficiency Proteinuria, unspecified type Procedures US KIDNEY/BLADDER US RETROPERITONEAL REAL TIME W/IMAGE COMPLETE Sudarshan Mojica MD [address] [place] [address] Us Imaging Referral ID Status Reason Start Date Expiration Date Visits Requested Visits Authorized [id number] Pending Review Auto-Generat ed Referral 03/19/2022 04/18/2023 1 1 T [facility] for referral (narrative)* Diagnostic Procedure Only (Routine) - Pending Review Specialty Diagnoses / Procedures Referred By Contac t Referred To Contact US IMAGING Diagnoses PMB (postmenopausal bleeding) Procedures US FEMALE PELVIS TRANSVAG US TRANSVAGINAL Josephine Lopes MD [address] [place] [address] Us Imaging Referral ID Status Reason Start Date Expiration Date Visits Requested Visits Authorized [id number] Pending Review Auto-Generat ed Referral 03/20/2022 04/19/2023 1 1 [facility] for referral (narrative)* Diagnostic Procedure Only (Routine) - Closed Specialty Diagnoses / Procedures Referred By Contac t Referred To Contact BR IMAG[facility] Diagnoses Screening breast examination Procedures IDALIA SCREENING SCREENING MAMMOGRAPHY BI 2-VIEW BREAST INC CAD Sudarshan Mojica MD [address] [place] [address] [facility] Imaging [address] [place] [address] Referral ID Status Reason Start Date Expiration Date V isits Requested Visits Authorized [id number] Closed Auto-Generate d Referral 03/18/2022 04/17/2023 1 1 [facility] for referral (narrative)* Diagnostic Procedure Only (Routine) - Authorized Specialty Diagnoses / Procedures Referred By Contac t Referred To Contact US IMAGING Diagnoses PMB (postmenopausal bleeding) Procedures US FEMALE PELVIS TRANSVAG US TRANSVAGINAL Josephine Lopes MD [address] [place] [address] Us Imaging Referral ID Status Reason Start Date Expiration Date Visits Requested Visits Authorized [id number] Authorized Auto-Generat ed Referral 03/20/2022 04/19/2023 1 1 [facility] for referral (narrative)* Diagnostic Procedure Only (Routine) - Closed Specialty Diagnoses / Procedures Referred By Contac t Referred To Contact XR IMAGING Diagnoses RUQ pain Upper back pain Procedures XR RIBS/CHEST 3V AP RIB/OBLS/CXR RIGHT RADEX RIBS UNI W/POSTEROANT CH MINIMUM 3 VIEWS Sudarshan Mojica MD [address] [place] [address] Xr Imaging Referral ID Status Reason Start Date Expiration Date V isits Requested Visits Authorized [id number] Closed Auto-Generate d Referral 09/17/2022 10/17/2023 1 1 * MRI/CT (Urgent) - Pending Review Specialty Diagnoses / Procedures Referred By Contac t Referred To Contact CT IMAGING Diagnoses RUQ pain Anemia, unspecified type Fall, subsequent encounter Procedures CT ABD/PEL W IVCON CT ABD & PELVIS W/CONTRAST Sudarshan Mojica MD [address] [place] [address] [address] [address] Referral ID Status Reason Start Date Expiration Date Visits Requested Visits Authorized [id number] Pending Review Auto-Generat ed Referral 09/17/2022 10/17/2023 1 1 [facility] for referral (narrative)* Outpatient Procedure (Urgent) - Pending Review Specialty Diagnoses / Procedures Referred By Contac t [facility] Diagnoses Edema of leg Procedures US LEG VEIN DVT [facility] LAB DUP-SCAN XTR VEINS COMPLETE BILATERAL STUDY Sudarshan Mojica MD [address] [place] [id number] [facility] [address] [place] [address] Referral ID Status Reason Start Date Expiration Date Visits Requested Visits Authorized [id number] Pending Review Auto-Generat ed Referral 01/05/2023 01/05/2024 1 1 * Diagnostic Procedure Only (Routine) - Closed Specialty Diagnoses / Procedures Referred By Contac t Referred To Contact XR IMAGING Diagnoses Abdominal distention Procedures XR ABDOMEN 1V SUPINE RADIOLOGIC EXAM ABDOMEN 1 VIEW Sudarshan Mojica MD [address] [place] [address] Xr Imaging Referral ID Status Reason Start Date Expiration Date V isits Requested Visits Authorized [id number] Closed Auto-Generate d Referral 01/05/2023 02/04/2024 1 1 [facility] for visit Narrative* Diagnostic Procedure Only (Routine) - Closed Specialty Diagnoses / Procedures Referred By Contac t Referred To Contact BR IMAG[facility] Diagnoses Screening breast examination Procedures IDALIA SCREENING SCREENING MAMMOGRAPHY BI 2-VIEW BREAST INC CAD Sudarshan Mojica MD [address] [place] [address] [facility] [address] [place] [address] Referral ID Status Reason Start Date Expiration Date V isits Requested Visits Authorized [id number] Closed Auto-Generate d Referral 03/18/2022 04/17/2023 1 1 [facility] for visit Narrative* Diagnostic Procedure Only (Routine) - Authorized Specialty Diagnoses / Procedures Referred By Contac t Referred To Contact US IMAGING Diagnoses PMB (postmenopausal bleeding) Procedures US FEMALE PELVIS TRANSVAG US TRANSVAGINAL Josephine Lopes MD [address] [place] [address] Us Imaging Referral ID Status Reason Start Date Expiration Date Visits Requested Visits Authorized [id number] Authorized Auto-Generat ed Referral 03/20/2022 04/19/[address] 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 Advance Directive(s) 01/19/2022 10:18 AM Advance Directive(s) 11/08/2021 10:24 AM Advance Directive(s) 08/21/2021 9:41 AM Advance Directive(s) 08/19/2021 9:33 AM Advance Directive(s) 02/28/2021 8:11 AM Advance Directive(s) 10/09/2020 9:05 AM Advance Directive(s) 07/05/2018 7:37 AM Advance Directive(s) 07/05/2018 7:43 AM Advance Directive(s) 05/11/2017 7:11 AM Documents on File Type Date Recorded 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 Advance Directive(s) 01/19/2022 10:18 AM Advance Directive(s) 11/08/2021 10:24 AM Advance Directive(s) 08/21/2021 9:41 AM Advance Directive(s) 08/19/2021 9:33 AM Advance Directive(s) 02/28/2021 8:11 AM Advance Directive(s) 10/09/2020 9:05 AM Advance Directive(s) 07/05/2018 7:37 AM Advance Directive(s) 07/05/2018 7:43 AM Advance Directive(s) 05/11/2017 7:11 AM Documents on File Type Date Recorded 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 Advance Directive(s) 05/14/2022 12:49 PM Advance Directive(s) 01/19/2022 10:18 AM Advance Directive(s) 11/08/2021 10:24 AM Advance Directive(s) 08/21/2021 9:41 AM Advance Directive(s) 08/19/2021 9:33 AM Advance Directive(s) 02/28/2021 8:11 AM Advance Directive(s) 10/09/2020 9:05 AM Advance Directive(s) 07/05/2018 7:37 AM Advance Directive(s) 07/05/2018 7:43 AM Advance Directive(s) 05/11/2017 7:11 AM Documents on File Type Date Recorded 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 Advance Directive(s) 07/05/2018 7:43 AM Documents on File Type Date Recorded 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 Advance Directive(s) 07/05/2018 7:43 AM Medications Administered Section Inactive Administered Medications - up to 3 most recent administrations Medication Order MAR Action Action Date Dose Rate Site acetaminophen 1,000 mg tab(s) (TYLENOL) 1,000 mg, ORAL, ONCE, 1 dose, On Wed07/24/22 at 1500, Please give orally in preop holding with a sip of water., If ordered PRN for pain, patient/guardian may elect to receive this medication for higher pain levels INSTEAD of the opioid, if preferred: Yes, Preprocedure Given 07/24/2022 3:50 PM EDT 1,000 mg fentaNYL 50 mcg/mL 50 mcg injection (SUBLIMAZE) 50 mcg, INTRAVENOUS, EVERY 10 MINUTES NEEDED, 4 doses, Starting on Wed07/24/22 at 1808, Until 07/25/22 at 0303, FIRST LINE THERAPY for mild, moderate, or severe pain, USE FOR MILD PAIN ONLY IF PATIENT IS UNABLE TO TOLERATE ORAL THERAPY, Recovery or Phase I (only) HYDROmorphone 0.2 mg injection (DILAUDID) 0.2 mg, INTRAVENOUS, EVERY 5 MINUTES NEEDED, 10 doses, Starting on Wed07/24/22 at 1808, Until 07/25/22 at 0303, SECOND LINE THERAPY for mild, moderate, or severe pain, USE FOR MILD PAIN ONLY IF PATIENT IS UNABLE TO TOLERATE ORAL THERAPY, Recovery or Phase I (only) lactated ringers iv infusion 5-30 mL/hr, INTRAVENOUS, CONTINUOUS, Starting on Wed07/24/22 at 1500, Until Wed07/24/22 at 1804, Preprocedure New Bag/Syringe/Bottle 07/24/2022 3:40 PM EDT 30 mL/hr 30 mL/hr lactated ringers iv infusion 50 mL/hr, INTRAVENOUS, CONTINUOUS, Starting on Wed07/24/22 at 1830, Until 07/25/22 at 0303, Recovery or Phase I (only) ondansetron (PF) 4 mg injection (ZOFRAN) 4 mg, INTRAVENOUS, EVERY 6 HOURS NEEDED, Starting on Wed07/24/22 at 1808, Until 07/25/22 at 0303, Nausea/Vomiting - First Line - Parenteral, EVERY 6 HOURS NEEDED Give IV push over 2 minutes. Use when patient unable to take medications by mouth., Recovery or Phase I (only) ondansetron 4 mg tab(s) (ZOFRAN) 4 mg, ORAL, EVERY 6 HOURS NEEDED, Starting on 07/24/22 at 1808, Until 07/25/22 at 0303, Nausea/Vomiting - First Line - Enteral, EVERY 6 HOURS NEEDED Use when patient able to take medications by mouth., Recovery or Phase I (only) oxyCODONE IR 5 mg tab(s) (ROXICODONE) 5 mg, ORAL, NEEDED, 1 dose, Starting on Wed07/24/22 at 1808, Until 07/25/22 at 0303, Moderate Pain (4-6) - Enteral, Recovery or Phase I (only) Reason for Referral Specialty Diagnoses / Procedures Referred By Jerome mata Referred To Contact Diagnoses Parkinson's disease without dyskinesia or fluctuating manifestations Procedures PROVIDER ORDERED FOLLOW UP OFFICE/OUTPATIENT [facility] 60-74 MINUTES Rubio Escalante MD [address] [place] [address] Referral ID Status Reason Start Date Expiration Date Visits Requested Visits Authorized [id number] Authorized PCP Requested Referral 3 11/03/2023 1 1 Specialty Diagnoses / Procedures Referred By Jerome mata Referred To Contact Diagnoses Parkinson's disease without dyskinesia or fluctuating manifestations Procedures CONSULT TO [facility] Rubio Escalante MD [address] [place] [address] [address] [place] [address] Referral ID Status Reason Start Date Expiration Date Visits Requested Visits Authorized [id number] Pending Review PCP Requested Referral 3 11/03/2023 1 1 Additional Source Comments INFORMATION SOURCE (unrecogn ized section and content) DATE CREATED AUTHOR AUTHOR'S ORGANIZ ATION 07/05/2020 [facility] DATE CREATED AUTHOR AUTHOR'S ORGANIZ ATION 03/21/2021 [facility] DATE CREATED AUTHOR AUTHOR'S ORGANIZ ATION 08/25/2022 [facility] DATE CREATED AUTHOR AUTHOR'S ORGANIZ ATION 12/03/2022 [facility] DATE CREATED AUTHOR AUTHOR'S ORGANIZ ATION 10/21/2023 [facility] Source Comments (unrecognize d section and content) In the event this informatio n is protected by the Federal Confidentiality of Alcohol and Drug Abuse Patient Records regulations: The Federal rules restrict any use of the information to criminally investigate or prosecute any alcohol or drug abuse patient.[facility] the event this information is protected by the Federal Confidentiality of Alcohol and Drug Abuse Patient Records regulations: The Federal rules restrict any use of the information to criminally investigate or prosecute any alcohol or drug abuse patient.[facility] the event this information is protected by the Federal Confidentiality of Alcohol and Drug Abuse Patient Records regulations: The Federal rules restrict any use of the information to criminally investigate or prosecute any alcohol or drug abuse patient.[facility] the event this information is protected by the Federal Confidentiality of Alcohol and Drug Abuse Patient Records regulations: The Federal rules restrict any use of the information to criminally investigate or prosecute any alcohol or drug abuse patient.[facility] the event this information is protected by the Federal Confidentiality of Alcohol and Drug Abuse Patient Records regulations: The Federal rules restrict any use of the information to criminally investigate or prosecute any alcohol or drug abuse patient.[facility] HospitalIn the event this information is protected by the Federal Confidentiality of Alcohol and Drug Abuse Patient Records regulations: The Federal rules restrict any use of the information to criminally investigate or prosecute any alcohol or drug abuse patient.[facility] HospitalIn the event this information is protected by the Federal Confidentiality of Alcohol and Drug Abuse Patient Records regulations: The Federal rules restrict any use of the information to criminally investigate or prosecute any alcohol or drug abuse patient.[facility] HospitalIn the event this information is protected by the Federal Confidentiality of Alcohol and Drug Abuse Patient Records regulations: The Federal rules restrict any use of the information to criminally investigate or prosecute any alcohol or drug abuse patient.[facility] HospitalIn the event this information is protected by the Federal Confidentiality of Alcohol and Drug Abuse Patient Records regulations: The Federal rules restrict any use of the information to criminally investigate or prosecute any alcohol or drug abuse patient.[facility] HospitalIn the event this information is protected by the Federal Confidentiality of Alcohol and Drug Abuse Patient Records regulations: The Federal rules restrict any use of the information to criminally investigate or prosecute any alcohol or drug abuse patient.[facility] HospitalIn the event this information is protected by the Federal Confidentiality of Alcohol and Drug Abuse Patient Records regulations: The Federal rules restrict any use of the information to criminally investigate or prosecute any alcohol or drug abuse patient.[facility] HospitalIn the event this information is protected by the Federal Confidentiality of Alcohol and Drug Abuse Patient Records regulations: The Federal rules restrict any use of the information to criminally investigate or prosecute any alcohol or drug abuse patient.[facility] the event this information is protected by the Federal Confidentiality of Alcohol and Drug Abuse Patient Records regulations: The Federal rules restrict any use of the information to criminally investigate or prosecute any alcohol or drug abuse patient.[facility] HospitalIn the event this information is protected by the Federal Confidentiality of Alcohol and Drug Abuse Patient Records regulations: The Federal rules restrict any use of the information to criminally investigate or prosecute any alcohol or drug abuse patient.[facility] HospitalIn the event this information is protected by the Federal Confidentiality of Alcohol and Drug Abuse Patient Records regulations: The Federal rules restrict any use of the information to criminally investigate or prosecute any alcohol or drug abuse patient.[facility]In the event this information is protected by the Federal Confidentiality of Alcohol and Drug Abuse Patient Records regulations: The Federal rules restrict any use of the information to criminally investigate or prosecute any alcohol or drug abuse patient.[facility] HospitalIn the event this information is protected by the Federal Confidentiality of Alcohol and Drug Abuse Patient Records regulations: The Federal rules restrict any use of the information to criminally investigate or prosecute any alcohol or drug abuse patient.[facility] HospitalIn the event this information is protected by the Federal Confidentiality of Alcohol and Drug Abuse Patient Records regulations: The Federal rules restrict any use of the information to criminally investigate or prosecute any alcohol or drug abuse patient.[facility] HospitalIn the event this information is protected by the Federal Confidentiality of Alcohol and Drug Abuse Patient Records regulations: The Federal rules restrict any use of the information to criminally investigate or prosecute any alcohol or drug abuse patient.[facility] HospitalIn the event this information is protected by the Federal Confidentiality of Alcohol and Drug Abuse Patient Records regulations: The Federal rules restrict any use of the information to criminally investigate or prosecute any alcohol or drug abuse patient.[facility] HospitalIn the event this information is protected by the Federal Confidentiality of Alcohol and Drug Abuse Patient Records regulations: The Federal rules restrict any use of the information to criminally investigate or prosecute any alcohol or drug abuse patient.[facility] HospitalIn the event this information is protected by the Federal Confidentiality of Alcohol and Drug Abuse Patient Records regulations: The Federal rules restrict any use of the information to criminally investigate or prosecute any alcohol or drug abuse patient.[facility] HospitalIn the event this information is protected by the Federal Confidentiality of Alcohol and Drug Abuse Patient Records regulations: The Federal rules restrict any use of the information to criminally investigate or prosecute any alcohol or drug abuse patient.[facility] HospitalIn the event this information is protected by the Federal Confidentiality of Alcohol and Drug Abuse Patient Records regulations: The Federal rules restrict any use of the information to criminally investigate or prosecute any alcohol or drug abuse patient.[facility] HospitalIn the event this information is protected by the Federal Confidentiality of Alcohol and Drug Abuse Patient Records regulations: The Federal rules restrict any use of the information to criminally investigate or prosecute any alcohol or drug abuse patient.[facility] HospitalIn the event this information is protected by the Federal Confidentiality of Alcohol and Drug Abuse Patient Records regulations: The Federal rules restrict any use of the information to criminally investigate or prosecute any alcohol or drug abuse patient.[facility] HospitalIn the event this information is protected by the Federal Confidentiality of Alcohol and Drug Abuse Patient Records regulations: The Federal rules restrict any use of the information to criminally investigate or prosecute any alcohol or drug abuse patient.[facility] HospitalIn the event this information is protected by the Federal Confidentiality of Alcohol and Drug Abuse Patient Records regulations: The Federal rules restrict any use of the information to criminally investigate or prosecute any alcohol or drug abuse patient.[facility] HospitalIn the event this information is protected by the Federal Confidentiality of Alcohol and Drug Abuse Patient Records regulations: The Federal rules restrict any use of the information to criminally investigate or prosecute any alcohol or drug abuse patient.[facility] HospitalIn the event this information is protected by the Federal Confidentiality of Alcohol and Drug Abuse Patient Records regulations: The Federal rules restrict any use of the information to criminally investigate or prosecute any alcohol or drug abuse patient.[facility] HospitalIn the event this information is protected by the Federal Confidentiality of Alcohol and Drug Abuse Patient Records regulations: The Federal rules restrict any use of the information to criminally investigate or prosecute any alcohol or drug abuse patient.[facility] HospitalIn the event this information is protected by the Federal Confidentiality of Alcohol and Drug Abuse Patient Records regulations: The Federal rules restrict any use of the information to criminally investigate or prosecute any alcohol or drug abuse patient.[facility] HospitalIn the event this information is protected by the Federal Confidentiality of Alcohol and Drug Abuse Patient Records regulations: The Federal rules restrict any use of the information to criminally investigate or prosecute any alcohol or drug abuse patient.[facility] HospitalIn the event this information is protected by the Federal Confidentiality of Alcohol and Drug Abuse Patient Records regulations: The Federal rules restrict any use of the information to criminally investigate or prosecute any alcohol or drug abuse patient.[facility] HospitalIn the event this information is protected by the Federal Confidentiality of Alcohol and Drug Abuse Patient Records regulations: The Federal rules restrict any use of the information to criminally investigate or prosecute any alcohol or drug abuse patient.[facility] HospitalIn the event this information is protected by the Federal Confidentiality of Alcohol and Drug Abuse Patient Records regulations: The Federal rules restrict any use of the information to criminally investigate or prosecute any alcohol or drug abuse patient.[facility] HospitalIn the event this information is protected by the Federal Confidentiality of Alcohol and Drug Abuse Patient Records regulations: The Federal rules restrict any use of the information to criminally investigate or prosecute any alcohol or drug abuse patient.[facility] HospitalIn the event this information is protected by the Federal Confidentiality of Alcohol and Drug Abuse Patient Records regulations: The Federal rules restrict any use of the information to criminally investigate or prosecute any alcohol or drug abuse patient.[facility] HospitalIn the event this information is protected by the Federal Confidentiality of Alcohol and Drug Abuse Patient Records regulations: The Federal rules restrict any use of the information to criminally investigate or prosecute any alcohol or drug abuse patient.[facility] HospitalIn the event this information is protected by the Federal Confidentiality of Alcohol and Drug Abuse Patient Records regulations: The Federal rules restrict any use of the information to criminally investigate or prosecute any alcohol or drug abuse patient.[facility] HospitalIn the event this information is protected by the Federal Confidentiality of Alcohol and Drug Abuse Patient Records regulations: The Federal rules restrict any use of the information to criminally investigate or prosecute any alcohol or drug abuse patient.[facility] HospitalIn the event this information is protected by the Federal Confidentiality of Alcohol and Drug Abuse Patient Records regulations: The Federal rules restrict any use of the information to criminally investigate or prosecute any alcohol or drug abuse patient.[facility] HospitalIn the event this information is protected by the Federal Confidentiality of Alcohol and Drug Abuse Patient Records regulations: The Federal rules restrict any use of the information to criminally investigate or prosecute any alcohol or drug abuse patient.[facility] HospitalIn the event this information is protected by the Federal Confidentiality of Alcohol and Drug Abuse Patient Records regulations: The Federal rules restrict any use of the information to criminally investigate or prosecute any alcohol or drug abuse patient.[facility] HospitalIn the event this information is protected by the Federal Confidentiality of Alcohol and Drug Abuse Patient Records regulations: The Federal rules restrict any use of the information to criminally investigate or prosecute any alcohol or drug abuse patient.[facility] HospitalIn the event this information is protected by the Federal Confidentiality of Alcohol and Drug Abuse Patient Records regulations: The Federal rules restrict any use of the information to criminally investigate or prosecute any alcohol or drug abuse patient.[facility] HospitalIn the event this information is protected by the Federal Confidentiality of Alcohol and Drug Abuse Patient Records regulations: The Federal rules restrict any use of the information to criminally investigate or prosecute any alcohol or drug abuse patient.[facility] HospitalIn the event this information is protected by the Federal Confidentiality of Alcohol and Drug Abuse Patient Records regulations: The Federal rules restrict any use of the information to criminally investigate or prosecute any alcohol or drug abuse patient.[facility] HospitalIn the event this information is protected by the Federal Confidentiality of Alcohol and Drug Abuse Patient Records regulations: The Federal rules restrict any use of the information to criminally investigate or prosecute any alcohol or drug abuse patient.[facility] HospitalIn the event this information is protected by the Federal Confidentiality of Alcohol and Drug Abuse Patient Records regulations: The Federal rules restrict any use of the information to criminally investigate or prosecute any alcohol or drug abuse patient.[facility] HospitalIn the event this information is protected by the Federal Confidentiality of Alcohol and Drug Abuse Patient Records regulations: The Federal rules restrict any use of the information to criminally investigate or prosecute any alcohol or drug abuse patient.[facility] HospitalIn the event this information is protected by the Federal Confidentiality of Alcohol and Drug Abuse Patient Records regulations: The Federal rules restrict any use of the information to criminally investigate or prosecute any alcohol or drug abuse patient.[facility] HospitalIn the event this information is protected by the Federal Confidentiality of Alcohol and Drug Abuse Patient Records regulations: The Federal rules restrict any use of the information to criminally investigate or prosecute any alcohol or drug abuse patient.[facility] HospitalIn the event this information is protected by the Federal Confidentiality of Alcohol and Drug Abuse Patient Records regulations: The Federal rules restrict any use of the information to criminally investigate or prosecute any alcohol or drug abuse patient.[facility] HospitalIn the event this information is protected by the Federal Confidentiality of Alcohol and Drug Abuse Patient Records regulations: The Federal rules restrict any use of the information to criminally investigate or prosecute any alcohol or drug abuse patient.[facility] HospitalIn the event this information is protected by the Federal Confidentiality of Alcohol and Drug Abuse Patient Records regulations: The Federal rules restrict any use of the information to criminally investigate or prosecute any alcohol or drug abuse patient.[facility] HospitalIn the event this information is protected by the Federal Confidentiality of Alcohol and Drug Abuse Patient Records regulations: The Federal rules restrict any use of the information to criminally investigate or prosecute any alcohol or drug abuse patient.[facility] HospitalIn the event this information is protected by the Federal Confidentiality of Alcohol and Drug Abuse Patient Records regulations: The Federal rules restrict any use of the information to criminally investigate or prosecute any alcohol or drug abuse patient.[facility] HospitalIn the event this information is protected by the Federal Confidentiality of Alcohol and Drug Abuse Patient Records regulations: The Federal rules restrict any use of the information to criminally investigate or prosecute any alcohol or drug abuse patient.[facility] HospitalIn the event this information is protected by the Federal Confidentiality of Alcohol and Drug Abuse Patient Records regulations: The Federal rules restrict any use of the information to criminally investigate or prosecute any alcohol or drug abuse patient.[facility] HospitalIn the event this information is protected by the Federal Confidentiality of Alcohol and Drug Abuse Patient Records regulations: The Federal rules restrict any use of the information to criminally investigate or prosecute any alcohol or drug abuse patient.[facility] Reason for Visit (unrecogniz ed section and content) Reason Comments Refill Request Reason Comments Yearly Exam complaint of hernia, need refill Reason Comments Results Reason Comments Consult hernia consult Specialty Diagnoses / Procedures Referred By Contac t Referred To Contact General Surgery Diagnoses Hernia Procedures CONSULT TO GENERAL SURGERY OFFICE/OUTPATIENT [facility] 60-74 MINUTES Sudarshan Mojica MD [address] [place] [address] Referral ID Status Reason Start Date Expiration Date V isits Requested Visits Authorized [id number] Closed PCP Requested Referral 03/18/2022 03/18/2023 1 1 Reason Comments Results Reason Comments Radiology US Specialty Diagnoses / Procedures Referred By Contac t Referred To Contact US IMAGING Diagnoses PMB (postmenopausal bleeding) Procedures US FEMALE PELVIS TRANSVAG US TRANSVAGINAL Josephine Lopes MD [address] [place] [address] Us Imaging Referral ID Status Reason Start Date Expiration Date V isits Requested Visits Authorized [id number] Closed Auto-Generate d Referral 03/20/2022 04/19/2023 1 1 Reason Comments Returning Patient's Call Reason Comments Future Appointment Reason Comments Pre-Op Visit Reason Comments PACC Missed appointment Reason Comments Appointment missed appointment Reason Comments Pre-Op Teaching Reason Comments Orders Reason Comments Appointment No show Reason Onset Date Comments Pre-Op Teaching 07/13/2022 Reason Comments Consult Reason Comments UTI Low back pain, burni ng with urination x1 week, after hysteroscopy Reason Comments Appointment Reason Comments Back Pain Reason Comments 6 Month Exam Reason Onset Date Comments Population Health Navigation Outreach 10/29/2022 [facility] Outreach Reason Comments Follow Up hernia Specialty Diagnoses / Procedures Referred By Contac t Referred To Contact General Surgery Diagnoses Hernia Procedures CONSULT TO GENERAL SURGERY OFFICE/OUTPATIENT [facility] 60-74 MINUTES Aretha Ann APRN.CNP [address] [place] [address] Referral ID Status Reason Start Date Expiration Date V isits Requested Visits Authorized [id number] Closed PCP Requested Referral 01/20/2022 01/20/2023 1 1 Reason Comments Post Op Hernia Reason Comments Patient Update Reason Comments Follow Up Reason Onset Date Comments Refill Request 02/01/2023 Reason Comments Release Of Medical Records Reason Onset Date Comments Refill Request 03/22/2023 Reason Comments Transition Of Care Reason Comments UTI Eye Problem Reason Comments Fibromyalgia Pain Refill Request Reason Onset Date Comments Refill Request 06/28/2023 Reason Onset Date Comments [facility] Immunizations 07/09/2023 Flu vaccination Reason Comments New Patient Evaluation Reason Comments Home Care Confirmation call Reason Onset Date Comments Refill Request 08/10/2023 Reason Onset Date Comments Refill Request 09/18/2023 Care Teams (unrecognized sec tion and content) Net Ui Developer Relationship Specialty Start Date End Date Sudarshan Mojica MD [address] [place] [address] PCP - General Family Practice 05/31/21 Net Ui Developer Relationship Specialty [place] [address] [place] [address] [place] [address] PCP - General Family Practice 05/31/21 Net Ui Developer Relationship Specialty Start Date End Date Sudarshan Mojica MD [facility] [place] [address] PCP - General Family Practice 05/31/21 Net Ui Developer Relationship Specialty Start Date End Date Sudarshan Mojica MD [address] [place] [address] PCP - General Family Practice 05/31/21 Net Ui Developer Relationship Specialty Start Date End Date Sudarshan Mojica MD [address] [place] [address] [place] [address] PCP - General Family Practice 05/31/21 Net Ui Developer Relationship Specialty Start Date End Date Sudarshan Mojica MD [address] [place] [address] PCP - General Family Practice 05/31/21 Net Ui Developer Relationship Specialty Start Date End Date Sudarshan Mojica MD [address] [place] [address] PCP - General Family Practice 05/31/21 Net Ui Developer Relationship Specialty Start Date End Date Sudarshan Mojica MD [address] [place] [address] PCP - General Family Practice 05/31/21 Net Ui Developer Relationship Specialty Start Date End Date Sudarshan Mojica MD [address] [place] [address] PCP - General Family Practice 05/31/21 Net Ui Developer Relationship Specialty Start Date End Date Sudarshan Mojica MD [address] [place] [address] PCP - General Family Practice 05/31/21 Net Ui Developer Relationship Specialty Start Date End Date Sudarshan Mojica MD [address] [place] [address] PCP - General Family Practice 05/31/21 Net Ui Developer Relationship Specialty Start Date End Date Sudarshan Mojica MD [address] [place] [address] PCP - General Family Practice 05/31/21 Net Ui Developer Relationship Specialty Start Date End Date Sudarshan Mojica MD [address] [place] [address] PCP - General Family Practice 05/31/21 Net Ui Developer Relationship Specialty Start Date End Date Sudarshan Mojica MD [address] [place] [address] PCP - General Family Practice 05/31/21 Net Ui Developer Relationship Specialty Start Date End Date Sudarshan Mojica MD [address] [place] [address] PCP - General Family Practice 05/31/21 Net Ui Developer Relationship Specialty Start Date End Date Sudarshan Mojica MD [address] [place] [address] PCP - General Family Practice 05/31/21 Net Ui Developer Relationship Specialty Start Date End Date Sudarshan Mojica MD [address] [place] [address] PCP - General Family Practice 05/31/21 Net Ui Developer Relationship Specialty Start Date End Date Sudarshan Mojica MD [address] [place] [address] PCP - General Family Practice 05/31/21 Net Ui Developer Relationship Specialty Start Date End Date Sudarshan Mojica MD [address] [place] [address] PCP - General Family Medicine 05/31/21 Net Ui Developer Relationship Specialty Start Date End Date Sudarshan Mojica MD [address] [place] [address] PCP - General Family Medicine 05/31/21 Net Ui Developer Relationship Specialty Start Date End Date Sudarshan Mojica MD [address] [place] [address] PCP - General Family Medicine 05/31/21 Net Ui Developer Relationship Specialty Start Date End Date Sudarshan Mojica MD [address] [place] [address] PCP - General Family Medicine 05/31/21 Net Ui Developer Relationship Specialty Start Date End Date Sudarshan Mojica MD [address] [place] [address] PCP - General Family Medicine 05/31/21 Net Ui Developer Relationship Specialty Start Date End Date Sudarshan Mojica MD [address] [place] [address] PCP - General Family Medicine 05/31/21 Net Ui Developer Relationship Specialty Start Date End Date Sudarshan Mojica MD [address] [place] [address] PCP - General Family Medicine 05/31/21 Net Ui Developer Relationship Specialty Start Date End Date Sudarshan Mojica MD [address] [place] [address] PCP - General Family Medicine 05/31/21 Net Ui Developer Relationship Specialty Start Date End Date Sudarshan Mojica MD [address] [place] [address] PCP - General Family Medicine 05/31/21 Net Ui Developer Relationship Specialty Start Date End Date Sudarshan Mojica MD [address] [place] [address] PCP - General Family Medicine 05/31/21 Net Ui Developer Relationship Specialty Start Date End Date Sudarshan Mojica MD [address] [place] [address] PCP - General Family Medicine 05/31/21 Net Ui Developer Relationship Specialty Start Date End Date Sudarshan Mojica MD [address] [place] [address] PCP - General Family Medicine 05/31/21 Net Ui Developer Relationship Specialty Start Date End Date Sudarshan Mojica MD [address] [place] [address] PCP - General Family Medicine 05/31/21 Net Ui Developer Relationship Specialty Start Date End Date Sudarshan Mojica MD [address] [place] [address] PCP - General Family Medicine 05/31/21 Net Ui Developer Relationship Specialty Start Date End Date Sudarshan Mojica MD [address] [place] [address] PCP - General Family Medicine 05/31/21 Net Ui Developer Relationship Specialty Start Date End Date Sudarshan Mojica MD [address] [place] [address] PCP - General Family Medicine 05/31/21 Net Ui Developer Relationship Specialty Start Date End Date Sudarshan Mojica MD [address] [place] [address] PCP - General Family Medicine 05/31/21 Net Ui Developer Relationship Specialty Start Date End Date Sudarshan Mojica MD [address] [place] [address] PCP - General Family Medicine 05/31/21 Net Ui Developer Relationship Specialty Start Date End Date Sudarshan Mojica MD [address] [place] [address] PCP - General Family Medicine 05/31/21 Net Ui Developer Relationship Specialty Start Date End Date Sudarshan Mojica MD [address] [place] [address] PCP - General Family Medicine 05/31/21 Net Ui Developer Relationship Specialty Start Date End Date Sudarshan Mojica MD [address] [place] [address] PCP - General Family Medicine 05/31/21 Net Ui Developer Relationship Specialty Start Date End Date Sudarshan Mojica MD [address] [place] [address] PCP - General Family Medicine 05/31/21 Net Ui Developer Relationship Specialty Start Date End Date Sudarshan Mojica MD [address] [place] [address] PCP - General Family Medicine 05/31/21 Net Ui Developer Relationship Specialty Start Date End Date Sudarshan Mojica MD [address] [place] [address] PCP - General Family Medicine 05/31/21 Net Ui Developer Relationship Specialty Start Date End Date Sudarshan Mojica MD [address] [place], [place] [id number] PCP - General Family Medicine 05/31/21 Rubio Escalante MD [address] [place], [place] [id number] Referring Neurology 08/07/23 Rubio Escalante MD [address] [place], [place] [id number] Home Care Provider Neurology 08/07/23 Net Ui Developer Relationship Specialty Start Date End Date Sudarshan Mojica MD [address] [place], [place] [address] PCP - General Family Medicine 05/31/21 Rubio Escalante MD [address] [place], [place] [id number] Referring Neurology 08/07/23 Rubio Escalante MD [address] [place] [address] Home Care Provider Neurology 08/07/23 Net Ui Developer Relationship Specialty Start Date End Date Sudarshan Mojica MD [address] [place] [address] PCP - General Family Medicine 05/31/21 Rubio Escalante MD [address] [place] [address] Referring Neurology 08/07/23 Rubio Escalante MD [address] [place] [address] Home Care Provider Neurology 08/07/23 Scheduled Active and Recently Administ ered Medications (unrecognized section and content) Continuous Medication Order 07/22/2022 07/23/2022 07/24/2022 lactated ringers iv infusion (CANCELED) 5-30 mL/hr, INTRAVENOUS, CONTINUOUS, Starting on Wed07/24/22 at 1500, Until Wed07/24/22 at 1804, Preprocedure 1540 (New Bag/Syring e/Bottle - Provider: Minna Bustos RN)1804 (Due: Infusion Complete) lactated ringers iv infusion 50 mL/hr, INTRAVENOUS, CONTINUOUS, Starting on Wed07/24/22 at 1830, Until 07/25/22 at 0303, Recovery or Phase I (only) 1830 (Due) PRN Medication Order 07/22/2022 07/23/2022 07/24/2022 fentaNYL 50 mcg/mL 50 mcg injection (SUBLIMAZE) 50 mcg, INTRAVENOUS, EVERY 10 MINUTES NEEDED, 4 doses, Starting on Wed07/24/22 at 1808, Until 07/25/22 at 0303, FIRST LINE THERAPY for mild, moderate, or severe pain, USE FOR MILD PAIN ONLY IF PATIENT IS UNABLE TO TOLERATE ORAL THERAPY, Recovery or Phase I (only) HYDROmorphone 0.2 mg injection (DILAUDID) 0.2 mg, INTRAVENOUS, EVERY 5 MINUTES NEEDED, 10 doses, Starting on Wed07/24/22 at 1808, Until 07/25/22 at 0303, SECOND LINE THERAPY for mild, moderate, or severe pain, USE FOR MILD PAIN ONLY IF PATIENT IS UNABLE TO TOLERATE ORAL THERAPY, Recovery or Phase I (only) ondansetron (PF) 4 mg injection (ZOFRAN)(Linked Group 1) 4 mg, INTRAVENOUS, EVERY 6 HOURS NEEDED, Starting on Wed07/24/22 at 1808, Until 07/25/22 at 0303, Nausea/Vomiting - First Line - Parenteral, EVERY 6 HOURS NEEDED Give IV push over 2 minutes. Use when patient unable to take medications by mouth., Recovery or Phase I (only) ondansetron 4 mg tab(s) (ZOFRAN)(Linked Group 1) 4 mg, ORAL, EVERY 6 HOURS NEEDED, Starting on Wed07/24/22 at 1808, Until 07/25/22 at 0303, Nausea/Vomiting - First Line - Enteral, EVERY 6 HOURS NEEDED Use when patient able to take medications by mouth., Recovery or Phase I (only) oxyCODONE IR 5 mg tab(s) (ROXICODONE) 5 mg, ORAL, NEEDED, 1 dose, Starting on Wed07/24/22 at 1808, Until 07/25/22 at 0303, Moderate Pain (4-6) - Enteral, Recovery or Phase I (only) Linked Groups Order Group 1: ondansetron 4 mg tab(s) (ZOFRAN)Jump to med 4 mg, ORAL, EVERY 6 HOURS NEEDED, Starting on Wed07/24/22 at 1808, Until 07/25/22 at 0303, Nausea/Vomiting - First Line - Enteral
EVERY 6 HOURS NEEDED Use when patient able to take medications by mouth.
Recovery or Phase I (only) Or ondansetron (PF) 4 mg injection (ZOFRAN)Jump to med 4 mg, INTRAVENOUS, EVERY 6 HOURS NEEDED, Starting on Wed07/24/22 at 1808, Until 07/25/22 at 0303, Nausea/Vomiting - First Line - Parenteral
EVERY 6 HOURS NEEDED Give IV push over 2 minutes. Use when patient unable to take medications by mouth.
Recovery or Phase I (only) FOR RECORDS PERTAINING TO PATIENTS WHO ARE OR HAVE BEEN ENROLLED IN A CHEMICAL DEPENDENCY/SUBSTANCEABUSE PROGRAM, SOME INFORMATION MAY BE OMITTED. This clinical summary was aggregated from multiple sources. Caution should be exercised in using it in the provision of clinical care. This summary normalizes information from multiple sources, and as a consequence, information in this document may materially change the coding, format and clinical context of patient data. In addition, data may be omitted in some cases. CLINICAL DECISIONS SHOULD BE BASED ON THE PRIMARY CLINICAL RECORDS. [employer] provides no warranty or guarantee of the accuracy or completeness of information in this document.
[2023-11-12] MEDS: Oxycodone/Apap 5/325 Tablet PO (19:49)
[2023-11-12 20:00] LABS: Anion Gap 4 (5-15); BUN 25 mg/dL (7-18); BUN/Creat Ratio 26.8 RATIO (10-20); Calcium,Total 8.9 mg/dL (8.5-10.1); Chloride 111 mmol/L (98-107); Creatinine, Serum 0.93 mg/dL (0.55-1.02); EST Glomerular Filtration Rate 62 mL/min (>60); Est Glom Filt Rate - Afr Amer 75 mL/min (>60); Estimated Creatinine Clearance 48.85 ml/min; Glucose 117 mg/dL (74-106); Potassium 4.2 mmol/L (3.5-5.1); Sodium Level 143 mmol/L (136-145)
--- NOTE | 2023-11-12 20:14 | RAD_ITS ---
STUDY: X-RAY - PELVIS AND RIGHT HIP REASON FOR EXAM: Female, 73 years old. pain TECHNIQUE: 3 views of the pelvis and hip. COMPARISON: None. FINDINGS: There is a non-specific bowel gas pattern. Normal visualized soft tissue structures. Normal bilateral iliac wings, sacroiliac joints and visualized sacrum. Normal bilateral superior and inferior pubic rami. Normal pubic symphysis. Normal bilateral ischial tuberosities. No definitive evidence for acute fracture. There is mild foreshortening of the lateral right femoral neck without well-defined fracture line.. Mild acetabular spurring. RAD/HIP, UNI W/ Pelvis 2-3 Views IMPRESSION: Mild degenerative changes. No definitive evidence for acute fracture or dislocation however cannot definitively exclude mildly impacted fracture of the lateral femoral neck. CT recommended for more definitive evaluation if clinically warranted Electronically Signed: Odell Ribera MD at 20:49 EST ,
[2023-11-12 22:27] VITALS: BP 138/77; PULSE 86; RESP 16; TEMP 36.4; O2SAT 96
== END 2023-11-12 22:28 | disposition home or self-care (01) ==
PROVIDERS: Emergency Provider Emergency Medicine; PCP Family Medicine; Visit Provider Emergency Medicine
DX: S70.01XA Contusion of right hip, initial encounter (principal); N18.31 Chronic kidney disease, stage 3a; R53.81 Other malaise; K21.9 Gastro-esophageal reflux disease without esophagitis; S30.0XXA Contusion of lower back and pelvis, initial encounter; I12.9 Hypertensive chronic kidney disease with stage 1 through stage 4 chronic kidney disease, or unspecified chronic kidney disease; E78.5 Hyperlipidemia, unspecified; Z79.899 Other long term (current) drug therapy; G20.A1 Parkinson's disease without dyskinesia, without mention of fluctuations; Z90.49 Acquired absence of other specified parts of digestive tract; W19.XXXA Unspecified fall, initial encounter; S40.019A Contusion of unspecified shoulder, initial encounter
CPT/HCPCS: 70450; 72125; 72128; 72131; 73030; 73502; 80048; 85025; 99282; J7030; A4216

== ENCOUNTER 2024-03-12 17:59 | Emergency (ER) | payer MEDICARE, BC, SELFPAY ==
[2024-03-12 18:00] VITALS: BP 176/86; PULSE 80; RESP 15; TEMP 36.2; O2SAT 98
--- NOTE | 2024-03-12 18:19 | CT_ITS ---
EXAM: CT SPINE - CERVICAL WITHOUT IV REASON FOR EXAM: Female, 74 years old. NECK PAIN pain, fall HISTORY: NECK PAIN pain, fall Individualized dose optimization techniques were used for this CT. TECHNIQUE: Multiplanar images were obtained of the cervical spine. IV contrast was not utilized. COMPARISON: 11.12.23 FINDINGS: The vertebral bodies do maintain their height. The odontoid process is intact. There is grade 1 anterolisthesis of C3 on C4 . This measures 1.3 mm.No pre-vertebral soft tissue swelling is seen. The intravertebral disc height is lost. There are scattered lymph nodes in the neck. There are degenerative changes of the osseous structures. There is bilateral facet arthropathy. There are scattered levels of foraminal stenosis. There are vascular calcifications. CT/Spine Cervical without Contras IMPRESSION: Degenerative changes of the cervical spine. There are no acute findings. Electronically Signed: Rashard Raya MD at 19:16 EDT ,
--- NOTE | 2024-03-12 18:19 | CT_ITS ---
STUDY: CT BRAIN WITHOUT CONTRAST REASON FOR EXAM: Female, 74 years old. head injury Individualized dose optimization techniques were used for this CT. TECHNIQUE: Transaxial CT imaging of the brain was performed without administration of intravenous contrast material. COMPARISON: 11/12/2023 FINDINGS: There are calcifications around the carotid artery. These are noted in the cavernous carotid arteries. Normal calvarium. Normal soft tissues. There is mild cerebral atrophy with widening of the extra-axial spaces and ventricular dilatation. There are areas of decreased attenuation within the white matter tracts of the supratentorial brain, consistent with microvascular disease changes. Normal basal ganglia and thalami. Normal brainstem. There is mild cerebellar atrophy. There is no intracranial hemorrhage. There are no findings of an acute ischemic infarction. Normal visualized paranasal sinuses. ASPECTS Score for Acute Strokes: 07/27 CT/Brain/Head without Contrast IMPRESSION: There are no acute findings. Chronic involutional changes of the brain. Electronically Signed: Rashard Raya MD at 19:12 EDT ,
--- NOTE | 2024-03-12 18:21 | EDS_ITS ---
HPI <NORMA Miranda - Last Filed: 03/12/24 21:21> HPI - Fall History of Present Illness Chief Complaint: Fall Narrative Narrative: 74-year-old female with Parkinson's uses a walker and states she fell 2 days ago getting out of bed when her shoe caught on something. She landed on her left side hitting her face and butt on the carpet. No LOC. No blood thinners. Her granddaughter and her boyfriend live in the home and she called for help and he assisted her up. She has been able to ambulate since then. Today when her daughter visited she complained of pain and the daughter noticed bruising on her left buttock and brought her in for evaluation. She takes tramadol as needed for chronic back pain. [facility] <NORMA Miranda - Last Filed: 03/12/24 21:21> [facility] Medical History (Updated 03/12/24 @ 19:23 by NORMA Miranda) Parkinson disease Venous insufficiency (chronic) (peripheral) Chronic renal failure, stage 3a Chronic kidney disease (CKD) stage G3a/A2, moderately decreased glomerular filtration rate (GFR) between 45-59 mL/min/1.73 square meter and albuminuria creatinine ratio between 30-299 mg/g GERD (gastroesophageal reflux disease) Thoracic radiculopathy due to degenerative joint disease of spine Situational depression Scoliosis of thoracolumbar spine Renal calculus, right Lumbar radiculopathy Irritable bowel syndrome with both constipation and diarrhea Fibromyalgia HLD (hyperlipidemia) HTN (hypertension) Home Medications ?Medication ?Instructions ?Recorded ?Last Taken ?Type acetaminophen 500 mg tablet 500 mg PO Q8H PRN PRN Pain 1-10 Or 01/10/21 Unknown History Fever ondansetron 4 mg disintegrating 4 mg PO Q8H PRN PRN Nausea #10 tabs 11/15/22 Unknown Rx tablet pantoprazole 40 mg tablet,delayed 40 mg PO DAILY GERD 03/22/23 Unknown History release simethicone 80 mg chewable tablet 80 mg PO TID Gas 03/22/23 Unknown History food supplemt, lactose-reduced 120 ml PO TIDCM #1 mL 04/06/23 Unknown Rx 0.08 gram-1.5 kcal/mL oral liquid gabapentin 100 mg capsule 100 mg PO TIDCM #1 cap 04/06/23 Unknown Rx loperamide 2 mg capsule 2 mg PO Q4H PRN PRN Diarrhea #1 cap 04/06/23 Unknown Rx metoprolol succinate 25 mg 25 mg PO DAILY #1 TAB 04/06/23 Unknown Rx tablet,extended release 24 hr sennosides 8.6 mg tablet (senna) 2 tab PO DAILY PRN PRN 04/06/23 Unknown Rx Constipation #1 TAB tramadol 50 mg tablet 50 mg PO Q6H PRN pain #20 tabs 05/28/23 Unknown Rx carbidopa 25 mg-levodopa 100 mg 1 tab PO TID 11/12/23 Unknown History tablet cyanocobalamin (vitamin B-12) 1,000 mcg PO DAILY 11/12/23 Unknown History 1,000 mcg capsule duloxetine 20 mg capsule,delayed 60 mg PO QHS 11/12/23 Unknown History release oxycodone 5 mg capsule 5 mg PO Q6H PRN pain 3 days #12 11/12/23 Unknown Rx caps polyethylene glycol 3350 17 17 g PO DAILY PRN PRN laxative 11/12/23 Unknown History gram/dose oral powder (Purelax) effect Allergy/AdvReac Type Severity Reaction Status Date / Time nitrofurantoin (From Allergy Hives Verified 03/12/24 18:06 Macrobid) hydrocodone (From Vicodin) AdvReac Vomiting Verified 03/12/24 18:06 morphine AdvReac Vomiting Verified 03/12/24 18:06 pregabalin (From Lyrica) AdvReac Vomiting Verified 03/12/24 18:06 Family History Mother Dementia Father No cardiac disease Surgical History History of cholecystectomy History of cataract surgery H/O ventral hernia repair Hx laparoscopic cholecystectomy Social History household members: family and other details: Her granddaughter Hardy lives with her and also Hardy is daughter, [place] housing: house number of children: 3 pets and animals: No history of recent travel: No Smoking Status: Never smoker Electronic Cigarette Use: not used second hand exposure: No alcohol intake: never substance use type: does not use ROS <Corrine Glauthier, PA - Last Filed: 03/12/24 21:21> ROS ED ROS Narrative Constitutional: Negative for fever, chills, malaise. Respiratory: Negative for shortness of breath. GI: Negative for abdominal pain. Neuro: Negative for headache, motor/sensory dysfunction. EXAM <NORMA Miranda - Last Filed: 03/12/24 21:21> Physical Exam Narrative Exam Narrative: CONST: Patient sitting in no acute distress. EYES: Normal inspection. ENT: Head normocephalic atraumatic, no raccoon eyes or torres sign, no hemotympanum, no nasal septal hematoma, no CSF otorrhea or rhinorrhea. NECK: Normal inspection. No midline spinal tenderness, no step off or crepitus. RESP: No respiratory distress, CTAB. Chest wall nontender. CVS: Regular rate and rhythm, no murmur, no gallop. ABD: Soft and nontender, no guarding or rebound, nondistended. Back: Normal inspection, no midline tenderness. SKIN: Color normal, no rash, warm, dry, intact. EXTREMITIES: No evidence of gross trauma or deformity. Full passive range of motion of upper extremities with cogwheel rigidity from Parkinson's, no bony tenderness, 2+ radial pulses. Pelvis stable, no bony tenderness lower extremities, 3+ bilateral ankle edema, 2+ DP pulses. Palm-sized red fang and ecchymosis left buttock over the ischial tuberosity area. NEURO: Alert and answering questions appropriately. Bradykinesia, diminished facial expression from Parkinsons. PSYCH: Normal affect. Const Vital Signs: 03/12/24 18:00 03/12/24 19:10 03/12/24 19:59 Temperature 97.2 F L 98.1 F Temperature Source Temporal Pulse Rate 80 78 Respiratory Rate 15 16 Respiratory Effort Normal Non-Labored Respiratory Depth Normal Respiratory Pattern Normal Blood Pressure 176/86 H 156/81 H Blood Pressure Mean 116 106 Pulse Ox 98 92 Oxygen Delivery Method Room Air Room Air <Dr. Tre Langston DO - Last Filed: 03/12/24 21:29> Physical Exam Const Vital Signs: 03/12/24 18:00 03/12/24 19:10 03/12/24 19:59 Temperature 97.2 F L 98.1 F Temperature Source Temporal Pulse Rate 80 78 Respiratory Rate 15 16 Respiratory Effort Normal Non-Labored Respiratory Depth Normal Respiratory Pattern Normal Blood Pressure 176/86 H 156/81 H Blood Pressure Mean 116 106 Pulse Ox 98 92 Oxygen Delivery Method Room Air Room Air [facility] <NORMA Miranda - Last Filed: 03/12/24 21:21> [facility] Narrative Medical decision making narrative: History gathered from: Patient and daughter Differential: Contusion versus pelvic/hip fracture Patient had mechanical fall 2 days ago and presents after she complained of pain in her daughter noticed left buttock bruising. She reports hitting her head but has no signs of head injury. She is awake alert with stable vital signs. There is a palm sized area of bruising and a red fang on the left buttock. Pelvis is stable and she is moving upper and lower extremities and neurovascular intact. She does have Bradykinesia and rigidity from Parkinson's. CT brain/cervical spine and left hip and pelvic x-rays are negative for traumatic injuries. Patient is ambulatory with her walker, comfortable taking Tylenol or her prescribed narcotic at home for breakthrough pain, and was instructed to follow- up with her primary care doctor. Radiography Diagnostic Testing: Clinical Impression(s) from Imaging Studies Brain CT 03/12/24 18:19 IMPRESSION: There are no acute findings. Chronic involutional changes of the brain. Electronically Signed: Rashard Raya MD at 19:12 EDT , Cervical Spine CT 03/12/24 18:19 IMPRESSION: Degenerative changes of the cervical spine. There are no acute findings. Electronically Signed: Rashard Raya MD at 19:16 EDT , Hip/Pelvis X-Ray 03/12/24 18:50 IMPRESSION: No acute findings in the pelvis or left hip. Electronically Signed: Rashard Raya MD at 19:18 EDT , ED attending interpretation of left hip and pelvis shows no acute fracture or dislocation. <Dr. Tre Langston, DO - Last Filed: 03/12/24 21:29> [facility] Narrative Medical decision making narrative: History gathered from: Patient and daughter Differential: Contusion versus pelvic/hip fracture Patient had mechanical fall 2 days ago and presents after she complained of pain in her daughter noticed left buttock bruising. She reports hitting her head but has no signs of head injury. She is awake alert with stable vital signs. There is a palm sized area of bruising and a red fang on the left buttock. Pelvis is stable and she is moving upper and lower extremities and neurovascular intact. She does have Bradykinesia and rigidity from Parkinson's. CT brain/cervical spine and left hip and pelvic x-rays are negative for traumatic injuries. Patient is ambulatory with her walker, comfortable taking Tylenol or her prescribed narcotic at home for breakthrough pain, and was instructed to follow- up with her primary care doctor. This patient was seen with a PA/DIGITAL SALES REPRESENTATIVE Individually assessed they patient including history and physical. I have reviewed everything on the chart that is available and agree with the documentation provided by the PA/DIGITAL SALES REPRESENTATIVE including discussion about the assessment, treatment plan, discussion, and return precautions. Patient presenting with her daughter for evaluation as she had had a fall. She hit her head. She also had bruising to the left buttock. On examination she does not have any focal neurologic deficits. We did obtain a CT of the brain and cervical spine today which was negative. The x-rays of the pelvis were also negative on my interpretation. Patient has been ambulatory for the last couple of days. Family comfortable taking her home. Radiography Diagnostic Testing: Clinical Impression(s) from Imaging Studies Brain CT 03/12/24 18:19 IMPRESSION: There are no acute findings. Chronic involutional changes of the brain. Electronically Signed: Rashard Raya MD at 19:12 EDT , Cervical Spine CT 03/12/24 18:19 IMPRESSION: Degenerative changes of the cervical spine. There are no acute findings. Electronically Signed: Rashard Raya MD at 19:16 EDT , Hip/Pelvis X-Ray 03/12/24 18:50 IMPRESSION: No acute findings in the pelvis or left hip. Electronically Signed: Rashard Raya MD at 19:18 EDT , Discharge Plan Triage Chief Complaint: Fall ED Midlevel Provider: Corrine Goldstein ED Provider: Tre Langston Dx/Rx/DC Orders Clinical Impression: Fall, Contusion of left buttock, Closed head injury Instructions: Bruises (Contusions), ED Head Injury (Adult) Prescriptions: No Action acetaminophen 500 MG tablet 500 mg PO Q8H PRN PRN (Reason: Pain 1-10 Or Fever) ondansetron 4 mg tablet,disintegrating 4 mg PO Q8H PRN PRN (Reason: Nausea) Qty: 10 0RF pantoprazole 40 mg Tablet,Delayed Release (Dr/Ec) 40 mg PO DAILY simethicone 80 mg Tablet,Chewable 80 mg PO TID sennosides [senna] 8.6 mg Tablet 2 tab PO DAILY PRN PRN (Reason: Constipation) Qty: 1 0RF loperamide 2 mg Capsule 2 mg PO Q4H PRN PRN (Reason: Diarrhea) Qty: 1 0RF gabapentin 100 mg Capsule 100 mg PO TIDCM Qty: 1 0RF metoprolol succinate 25 mg Tablet Extended Release 24 Hr 25 mg PO DAILY Qty: 1 0RF food supplemt, lactose-reduced 0.08 gram-1.5 kcal/mL Liquid 120 ml PO TIDCM Qty: 1 0RF carbidopa-levodopa 25-100 mg tablet 1 tab PO TID Patient Comments: TAKE 1 TABLET BY MOUTH THREE TIMES DAILY AT 7AM, 12PM & 5PM cyanocobalamin (vitamin B-12) 1,000 mcg capsule 1,000 mcg PO DAILY polyethylene glycol 3350 [Purelax] 17 gram/dose powder 17 g PO DAILY PRN PRN (Reason: laxative effect) Patient Comments: MIX AND DRINK 17G BY MOUTH TWICE DAILY duloxetine 20 mg Capsule,Delayed Release(Dr/Ec) 60 mg PO QHS oxycodone 5 mg capsule 5 mg PO Q6H PRN (Reason: pain) 3 Days Qty: 12 0RF tramadol 50 mg tablet 50 mg PO Q6H PRN (Reason: pain) Qty: 20 0RF Primary Care Provider: Sudarshan Galarza Referrals: Sudarshan Galarza MD [Primary Care Provider] - Print Language: Angolan Disposition Disposition: Home, Self Care Discharge Date/Time: 03/12/24 20:27
--- NOTE | 2024-03-12 18:50 | RAD_ITS ---
EXAM: XR LEFT HIP WITH PELVIS WHEN PERFORMED, 2 OR 3 VIEWS CLINICAL INDICATION: pain TECHNIQUE: Two or three views of the left hip with pelvis when performed. COMPARISON: No relevant prior studies available. FINDINGS: BONES/JOINTS: Degenerative findings in the lumbar spine. No displaced fracture. No destructive or sclerotic lesions. Note that overlapping bowel shadows may however obscure fine detail. Sacroiliac joint is unremarkable. No widening of the pubic symphysis. SOFT TISSUES: Unremarkable. No soft tissue swelling or gas. RAD/HIP, UNI W/ Pelvis 2-3 Views IMPRESSION: No acute findings in the pelvis or left hip. Electronically Signed: Rashard Raya MD at 19:18 EDT Reading Location ID and State: [facility] / [place] , Service support ,
[2024-03-12 19:59] VITALS: BP 156/81; PULSE 78; RESP 16; TEMP 36.7; O2SAT 92
== END 2024-03-12 20:27 | disposition home or self-care (01) ==
PROVIDERS: Emergency Provider Student in an Organized Health Care Education/Training Program; PCP Family Medicine; Visit Provider Student in an Organized Health Care Education/Training Program
DX: S09.90XA Unspecified injury of head, initial encounter (principal); G20.A1 Parkinson's disease without dyskinesia, without mention of fluctuations; N18.31 Chronic kidney disease, stage 3a; S30.0XXA Contusion of lower back and pelvis, initial encounter; W06.XXXA Fall from bed, initial encounter; M54.9 Dorsalgia, unspecified; G89.29 Other chronic pain; Z79.899 Other long term (current) drug therapy; I12.9 Hypertensive chronic kidney disease with stage 1 through stage 4 chronic kidney disease, or unspecified chronic kidney disease; E78.5 Hyperlipidemia, unspecified; K21.9 Gastro-esophageal reflux disease without esophagitis; Z90.49 Acquired absence of other specified parts of digestive tract
CPT/HCPCS: 70450; 72125; 73502; 99282

== ENCOUNTER 2024-06-18 13:55 | Emergency (ER) | payer MEDICARE, BC, SELFPAY ==
[2024-06-18 13:56] VITALS: BP 149/82; PULSE 72; RESP 18; TEMP 36.6; O2SAT 95
--- NOTE | 2024-06-18 15:01 | RAD_ITS ---
EXAM: XR LEFT HIP WITH PELVIS WHEN PERFORMED, 2 OR 3 VIEWS CLINICAL INDICATION: Injury/Pain TECHNIQUE: Two or three views of the left hip with pelvis when performed. COMPARISON: 03/12/2024 FINDINGS: BONES/JOINTS: Severe degenerative changes partially visualized in the lower lumbar spine. Degenerative changes of the bilateral SI joints. Mild degenerative changes of the bilateral hips and bilateral trochanteric enthesopathy. No displaced fracture. No destructive or sclerotic lesions. Note that overlapping bowel shadows may however obscure fine detail. No widening of the pubic symphysis. SOFT TISSUES: No significant abnormality. No soft tissue swelling or gas. RAD/HIP, UNI W/ Pelvis 2-3 Views IMPRESSION: Degenerative changes. No acute osseous findings. Electronically Signed: Lexx Moore DO at 15:37 EDT ,
--- NOTE | 2024-06-18 15:01 | RAD_ITS ---
EXAM: XR LEFT ELBOW COMPLETE, 3 OR MORE VIEWS CLINICAL INDICATION: Injury/Pain TECHNIQUE: Frontal, lateral and oblique views of the left elbow. COMPARISON: No relevant prior studies available. FINDINGS: BONES/JOINTS: No significant abnormality. There is no displacement of the anterior or posterior fat pads. No acute fracture. No subluxation. Normal alignment. Preservation of the joint space. No destructive or sclerotic lesions. SOFT TISSUES: Posterior soft tissue swelling. RAD/Elbow min 3 Views IMPRESSION: Posterior soft tissue swelling. No acute fracture or joint effusion. Electronically Signed: Lexx Moore DO at 15:36 EDT ,
--- NOTE | 2024-06-18 15:02 | ED.VIS.FALL ---
HPI HPI - Fall History of Present Illness Chief Complaint: Fall Informant: patient Occured/Mechanism Occurred: Days (2) Pain/Injury Pain Location: neck, back, upper extremity (Left shoulder, left elbow) and lower extremity (Left hip) Quality of Pain: Aching and Burning Worsened by: Nothing Relieved by: Nothing Associated Symptoms Associated Symptoms: Positive for Loss of consciousness; Negative for Parasthesias or Weakness Length of loss of consciousness: Unknown Narrative Narrative: Patient presents after a fall 2 days ago. Patient states she passed out and fell. Patient complains of pain over her left shoulder, left elbow, and left hip. Patient describes her pain as aching and burning. Patient states nothing makes it better and nothing makes it worse. Patient is unsure how long she was out for. Patient denies any lightheadedness or dizziness prior to the syncopal episode. Patient denies any palpitations. Patient denies any chest pain or shortness of breath. PFSH PFS Medical History Parkinson disease Venous insufficiency (chronic) (peripheral) Chronic renal failure, stage 3a Chronic kidney disease (CKD) stage G3a/A2, moderately decreased glomerular filtration rate (GFR) between 45-59 mL/min/1.73 square meter and albuminuria creatinine ratio between 30-299 mg/g GERD (gastroesophageal reflux disease) Thoracic radiculopathy due to degenerative joint disease of spine Situational depression Scoliosis of thoracolumbar spine Renal calculus, right Lumbar radiculopathy Irritable bowel syndrome with both constipation and diarrhea Fibromyalgia HLD (hyperlipidemia) HTN (hypertension) Home Medications ?Medication ?Instructions ?Recorded ?Last Taken ?Type acetaminophen 500 mg tablet 500 mg PO Q8H PRN PRN Pain 1-10 Or 01/10/21 Unknown History Fever ondansetron 4 mg disintegrating 4 mg PO Q8H PRN PRN Nausea #10 tabs 11/15/22 Unknown Rx tablet pantoprazole 40 mg tablet,delayed 40 mg PO DAILY GERD 03/22/23 Unknown History release simethicone 80 mg chewable tablet 80 mg PO TID Gas 03/22/23 Unknown History food supplemt, lactose-reduced 120 ml PO TIDCM #1 mL 04/06/23 Unknown Rx 0.08 gram-1.5 kcal/mL oral liquid gabapentin 100 mg capsule 100 mg PO TIDCM #1 cap 04/06/23 Unknown Rx loperamide 2 mg capsule 2 mg PO Q4H PRN PRN Diarrhea #1 cap 04/06/23 Unknown Rx metoprolol succinate 25 mg 25 mg PO DAILY #1 TAB 04/06/23 Unknown Rx tablet,extended release 24 hr sennosides 8.6 mg tablet (senna) 2 tab PO DAILY PRN PRN 04/06/23 Unknown Rx Constipation #1 TAB tramadol 50 mg tablet 50 mg PO Q6H PRN pain #20 tabs 05/28/23 Unknown Rx carbidopa 25 mg-levodopa 100 mg 1 tab PO TID 11/12/23 Unknown History tablet cyanocobalamin (vitamin B-12) 1,000 mcg PO DAILY 11/12/23 Unknown History 1,000 mcg capsule duloxetine 20 mg capsule,delayed 60 mg PO QHS 11/12/23 Unknown History release oxycodone 5 mg capsule 5 mg PO Q6H PRN pain 3 days #12 11/12/23 Unknown Rx caps polyethylene glycol 3350 17 17 g PO DAILY PRN PRN laxative 11/12/23 Unknown History gram/dose oral powder (Purelax) effect Allergy/AdvReac Type Severity Reaction Status Date / Time nitrofurantoin (From Allergy Hives Verified 03/12/24 18:06 Macrobid) pregabalin (From Lyrica) AdvReac Vomiting Verified 03/12/24 18:06 Family History Mother Dementia Father No cardiac disease Surgical History History of cholecystectomy History of cataract surgery H/O ventral hernia repair Hx laparoscopic cholecystectomy Social History household members: family and other details: Her granddaughter Hardy lives with her and also Hardy is daughter, [place] housing: house number of children: 3 pets and animals: No history of recent travel: No Smoking Status: Never smoker Electronic Cigarette Use: not used second hand exposure: No alcohol intake: never substance use type: does not use ROS ROS ED Constitutional Constitutional ED: Denies chills or fever(s) Eyes Eyes: Denies blurry vision or change in vision ENT ENT ED: Denies rhinorrhea or sore throat Cardiovascular Cardiovascular: Denies chest pain or palpitations Respiratory/Chest Respiratory/Chest: Denies cough or dyspnea Gastrointestinal Gastrointestinal: Denies nausea or vomiting Genitourinary Genitourinary ED: Denies dysuria or hematuria Musculoskeletal Musculoskeletal: Reports back pain and neck pain Integumentary Denies abscess or rash Neurologic Neurologic: Reports headache(s); Denies weakness Allergic/Immunologic Allergic/Immunologic ED: Denies mouth swelling or urticaria EXAM Physical Exam Const Vital Signs: 06/18/24 13:56 06/18/24 15:09 06/18/24 15:55 Temperature 97.9 F Temperature Source Oral Pulse Rate 72 81 Respiratory Rate 18 16 Respiratory Effort Normal Respiratory Depth Normal Respiratory Pattern Normal Blood Pressure 149/82 H 174/103 H Blood Pressure Mean 104 126 Pulse Ox 95 98 Oxygen Delivery Method Room Air Room Air Room Air Positive well nourished and well developed General Appearance ED: well developed and NAD HEENT Reports normocephalic HEENT Narrative: There is old ecchymosis over the right periorbital area and forehead. Neck full ROM and supple Extremity Extremity Narrative: There is tenderness over the left shoulder. There is also tenderness over the left elbow. There is no deformity noted. Range of motion was limited in all motions of the left elbow and left shoulder secondary to pain. There is also tenderness over the left hip. There is pain with internal and external rotation of the left hip. There is no deformity noted. There are some mild edema of the left lower extremity. Strength is 5/5 bilaterally upper and lower extremities. There are no sensory deficits noted. Radial and pedal pulses are equal bilaterally. Neuro CN's II-XII intact bilaterally, moves all extremities, no focal motor deficits and no sensory deficits noted Sensorium / Orientation: alert Motor Exam: general weakness MDM MDM MDM Narrative Medical decision making narrative: Differential diagnosis includes proximal humerus fracture, elbow fracture, hip fracture, and soft tissue contusion. X-rays of the left shoulder will be obtained to assess for fracture and dislocation. X-rays of the left elbow will be obtained to assess for fracture and dislocation. X-rays of the left hip will be obtained to assess for fracture. Radiography Diagnostic Testing: Clinical Impression(s) from Imaging Studies Elbow X-Ray 06/18/24 15:01 IMPRESSION: Posterior soft tissue swelling. No acute fracture or joint effusion. Electronically Signed: Lexx Moore DO at 15:36 EDT , Hip/Pelvis X-Ray 06/18/24 15:01 IMPRESSION: Degenerative changes. No acute osseous findings. Electronically Signed: Lexx Moore DO at 15:37 EDT , Shoulder X-Ray 06/18/24 15:10 IMPRESSION: 1. Possible left basilar pulmonary opacity which may be atelectasis or pneumonia. 2. Mild acromioclavicular joint and glenohumeral joint arthrosis. No acute osseous abnormalities. Electronically Signed: Lexx Moore DO at 15:38 EDT , X-rays of the left hip were obtained. There are 3 views. On my independent interpretation, there is no acute fracture noted. There are some degenerative changes noted. Radiologist also interpreted the x-rays and agrees. X-rays of the left elbow were obtained. There are 3 views. On my independent interpretation, there is no acute fracture or dislocation. There is no joint effusion noted. There is some soft tissue swelling noted. X-rays of the left shoulder were obtained. There are 2 views. On my independent interpretation, there is no acute fracture or dislocation noted. There are some degenerative joint changes noted. Radiologist also interpreted the x-rays and agrees. Treatment and Re-Evaluation Narrative: Patient was given a dose of Gage here. Patient was feeling better on reevaluation. Patient was advised of her findings. Patient was instructed to use ice to the area. Patient was instructed to continue her tramadol as needed for pain.. Patient was instructed to follow-up with her primary care physician in 5 to 7 days. Patient understood and was agreeable with the plan. All questions were answered. Discharge Plan Triage Chief Complaint: Fall ED Provider: Wilian Crockett Dx/Rx/DC Orders Clinical Impression: Contusion of left shoulder, Contusion of left elbow, initial encounter, Contusion of left hip, initial encounter Instructions: ED Contusion, Elbow, ED Hip Contusion Prescriptions: No Action acetaminophen 500 MG tablet 500 mg PO Q8H PRN PRN (Reason: Pain 1-10 Or Fever) ondansetron 4 mg tablet,disintegrating 4 mg PO Q8H PRN PRN (Reason: Nausea) Qty: 10 0RF pantoprazole 40 mg Tablet,Delayed Release (Dr/Ec) 40 mg PO DAILY simethicone 80 mg Tablet,Chewable 80 mg PO TID sennosides [senna] 8.6 mg Tablet 2 tab PO DAILY PRN PRN (Reason: Constipation) Qty: 1 0RF loperamide 2 mg Capsule 2 mg PO Q4H PRN PRN (Reason: Diarrhea) Qty: 1 0RF gabapentin 100 mg Capsule 100 mg PO TIDCM Qty: 1 0RF metoprolol succinate 25 mg Tablet Extended Release 24 Hr 25 mg PO DAILY Qty: 1 0RF food supplemt, lactose-reduced 0.08 gram-1.5 kcal/mL Liquid 120 ml PO TIDCM Qty: 1 0RF carbidopa-levodopa 25-100 mg tablet 1 tab PO TID Patient Comments: TAKE 1 TABLET BY MOUTH THREE TIMES DAILY AT 7AM, 12PM & 5PM cyanocobalamin (vitamin B-12) 1,000 mcg capsule 1,000 mcg PO DAILY polyethylene glycol 3350 [Purelax] 17 gram/dose powder 17 g PO DAILY PRN PRN (Reason: laxative effect) Patient Comments: MIX AND DRINK 17G BY MOUTH TWICE DAILY duloxetine 20 mg Capsule,Delayed Release(Dr/Ec) 60 mg PO QHS oxycodone 5 mg capsule 5 mg PO Q6H PRN (Reason: pain) 3 Days Qty: 12 0RF tramadol 50 mg tablet 50 mg PO Q6H PRN (Reason: pain) Qty: 20 0RF Primary Care Provider: Sudarshan Galarza Referrals: Sudarshan Galarza MD [Primary Care Provider] - 5-7 Days Print Language: Slovenian Disposition Disposition: Home, Self Care
[2024-06-18] MEDS: HYDROcodone Bitartrate/Apap 5/325 Tablet PO (15:07)
--- NOTE | 2024-06-18 15:10 | RAD_ITS ---
EXAM: XR LEFT SHOULDER COMPLETE, 2 OR MORE VIEWS CLINICAL INDICATION: Injury/Pain TECHNIQUE: Two or more views of the left shoulder. COMPARISON: No relevant prior studies available. FINDINGS: BONES/JOINTS: Mild acromioclavicular joint and glenohumeral joint arthrosis. Degenerative changes in the spine. No acute fracture. No subluxation. Normal alignment. No sclerotic or destructive changes observed. SOFT TISSUES: No significant abnormality. No soft tissue swelling or gas. No radiopaque foreign body. VASCULATURE: Atherosclerosis. LUNGS AND PLEURAL SPACES: Possible left basilar pulmonary opacity which may be atelectasis or pneumonia. RAD/Shoulder min 2 Views IMPRESSION: 1. Possible left basilar pulmonary opacity which may be atelectasis or pneumonia. 2. Mild acromioclavicular joint and glenohumeral joint arthrosis. No acute osseous abnormalities. Electronically Signed: Lexx Moore DO at 15:38 EDT ,
[2024-06-18 15:55] VITALS: BP 174/103; PULSE 81; RESP 16; O2SAT 98
== END 2024-06-18 17:06 | disposition home or self-care (01) ==
PROVIDERS: Emergency Provider Emergency Medicine; PCP Family Medicine; Visit Provider Emergency Medicine
DX: S40.012A Contusion of left shoulder, initial encounter (principal); G20.A1 Parkinson's disease without dyskinesia, without mention of fluctuations; N18.31 Chronic kidney disease, stage 3a; R55 Syncope and collapse; W19.XXXA Unspecified fall, initial encounter; S50.02XA Contusion of left elbow, initial encounter; S70.02XA Contusion of left hip, initial encounter; I12.9 Hypertensive chronic kidney disease with stage 1 through stage 4 chronic kidney disease, or unspecified chronic kidney disease; E78.5 Hyperlipidemia, unspecified; K21.9 Gastro-esophageal reflux disease without esophagitis; Z79.899 Other long term (current) drug therapy; Z90.49 Acquired absence of other specified parts of digestive tract
CPT/HCPCS: 73030; 73080; 73502; 99282

== ENCOUNTER 2024-08-23 16:01 | Emergency (ER) | payer MEDICARE, BC, SELFPAY ==
[2024-08-23 16:04] VITALS: BP 154/85; PULSE 95; RESP 16; TEMP 36.8; O2SAT 94; BMI 25.8
[2024-08-23 17:33] LABS: Squamous Epithelial Cells - UA 0 SEEN /hpf (5-10)
[2024-08-23] MEDS: Ondansetron 4 MG/2 ML Vial IV (17:38)
[2024-08-23] MEDS: Morphine 2 MG/ML Syringe IV (17:38)
[2024-08-23 17:45] LABS: Color, Urine Yellow (Yellow); Glucose, Dipstick Normal (Normal); Ketone-Dipstick Negative (Negative); Leukocyte Esterase-Dipstick Negative /ul (Negative); Nitrite-Dipstick Negative (Negative); Occult Blood-Urine 10 /ul (Negative); Protein-Dipstick 15 mg/dl (Negative); Specific Gravity, Urine 1.025 (1.002-1.030); Urine Bilirubin Dipstick Negative (Negative); Urine Clarity Sl. Cloudy (Clear); Urine Urobilinogen Normal (Normal)
[2024-08-23 17:46] LABS: Absolute Lymphocyte Count 0.82 X10^3/uL (0.83-4.51); Absolute Neutrophil Count 6.6 X10^3/uL (2.0-7.7); Basophil# 0.02 X10^3/uL; Basophil% 0.2 % (0-1); Eosinophil# 0.03 X10^3/uL; Eosinophils% 0.4 % (0-5); Hematocrit 43.2 % (37-47); Hemoglobin 13.5 g/dL (12.0-15.0); Lymphocyte # 0.82 X10^3/ul (0.83-4.51); Lymphocyte % 10.2 % (19-41); Mean Corp Hgb Conc 31.3 g/dL (32-36); Mean Corpuscular Hgb 29.4 pg (27.0-32.0); Mean Corpuscular Volume 94.1 fL (81-99); Mean Platelet Vol. 9.7 fl (6.2-12.0); Monocyte# 0.61 X10^3/uL; Monocyte% 7.6 % (0-10); NRBC Flagged by Analyzer 0 % (0-5); Neutrophil # 6.55 X10^3/uL (2.7-7.7); Neutrophil % 81.1 % (47-70); Platelet Count 224 K/mm3 (150-450); RBC Distribution Width CV 13.5 % (11.6-14.6); RBC Distribution Width SD 46.7 fl (35.1-43.9); Red Blood Count 4.59 M/mm3 (4.2-5.4); White Blood Count 8.1 K/mm3 (4.4-11.0)
[2024-08-23 17:51] LABS: ALB/GLOB Ratio 1.2 RATIO (0.9-2.4); AST(SGOT) 42 U/L (15-37); Alanine Aminotransfer ALT/SGPT 12 U/L (13-56); Albumin, Serum 3.8 g/dL (3.2-5.0); Alkaline Phosphatase 105 U/L (45-117); Anion Gap 4 (5-15); BUN 21 mg/dL (7-18); Chloride 108 mmol/L (98-107); EST Glomerular Filtration Rate 57 mL/min (>60); Est Glom Filt Rate - Afr Amer 69 mL/min (>60); Estimated Creatinine Clearance 43.76 ml/min; Globulin 3.2 g/dL (2.2-4.2); Glucose 112 mg/dL (74-106); Lipase 26 U/L (13-75); Potassium 4.2 mmol/L (3.5-5.1); Sodium Level 141 mmol/L (136-145)
[2024-08-23 17:55] LABS: White Blood Cells 0-5 SEEN /hpf (0-5)
[2024-08-23 17:56] LABS: Bacteria RARE /hpf (None Seen); Hyaline Cast 0-5 SEEN /lpf (0-5); Mucous, Urine 1+ /hpf (<or=2+); Red Blood Cells-Urine 0-5 SEEN /hpf (0-5)
[2024-08-23 18:02] VITALS: BP 155/99; PULSE 85; RESP 15; O2SAT 91
[2024-08-23 18:22] VITALS: O2SAT 94
[2024-08-23 19:59] VITALS: BP 141/91; PULSE 78; RESP 20; TEMP 36.4; O2SAT 93
== END 2024-08-23 21:19 | disposition home or self-care (01) ==
PROVIDERS: Emergency Provider Surgery; PCP Family Medicine; Visit Provider Surgery
DX: R10.9 Unspecified abdominal pain (principal); G20.C Parkinsonism, unspecified; N18.31 Chronic kidney disease, stage 3a; G89.29 Other chronic pain; N20.0 Calculus of kidney; M79.7 Fibromyalgia; I12.9 Hypertensive chronic kidney disease with stage 1 through stage 4 chronic kidney disease, or unspecified chronic kidney disease; E78.5 Hyperlipidemia, unspecified; K21.9 Gastro-esophageal reflux disease without esophagitis; Z90.49 Acquired absence of other specified parts of digestive tract; M25.522 Pain in left elbow
CPT/HCPCS: 73080; 74177; 80053; 81001; 83690; 85025; 96374; 96375; 99284; Q9967; A4216; J2405

== ENCOUNTER 2024-12-02 01:12 | Emergency (ER) | payer MEDICARE, BC, SELFPAY ==
[2024-12-02 01:12] VITALS: BP 163/89; PULSE 76; RESP 16; TEMP 36.6; O2SAT 97; BMI 27.2
[2024-12-02] MEDS: Haloperidol Lactate 5 MG/ML Vial IM (01:45)
[2024-12-02] MEDS: DiphenhydrAMINE 50 MG/ML Syringe 25 MG IM (01:45)
[2024-12-02] MEDS: Orphenadrine 60 MG/2 ML Ampul IM (01:47)
--- NOTE | 2024-12-02 02:42 | EX.ED.DYSGE1 ---
HPI History of Present Illness Chief Complaint: Back Informant: patient and EMS Narrative Narrative: Patient is a 74-year-old female with past medical history of hypertension hyperlipidemia Parkinson's disease fibromyalgia scoliosis and degenerative disc disease. She is on chronic pain medication secondary to the fibromyalgia and scoliosis. This evening there was no reported trauma or excessive activity but despite taking her medications has been moaning in pain and therefore was sent to the hospital for evaluation. [facility] Medical History Parkinson disease Venous insufficiency (chronic) (peripheral) Chronic renal failure, stage 3a Chronic kidney disease (CKD) stage G3a/A2, moderately decreased glomerular filtration rate (GFR) between 45-59 mL/min/1.73 square meter and albuminuria creatinine ratio between 30-299 mg/g GERD (gastroesophageal reflux disease) Thoracic radiculopathy due to degenerative joint disease of spine Situational depression Scoliosis of thoracolumbar spine Renal calculus, right Lumbar radiculopathy Irritable bowel syndrome with both constipation and diarrhea Fibromyalgia HLD (hyperlipidemia) HTN (hypertension) Home Medications ?Medication ?Instructions ?Recorded ?Last Taken ?Type acetaminophen 500 mg tablet 500 mg PO Q8H PRN PRN Pain 1-10 Or 01/10/21 Unknown History Fever ondansetron 4 mg disintegrating 4 mg PO Q8H PRN PRN Nausea #10 tabs 11/15/22 Unknown Rx tablet pantoprazole 40 mg tablet,delayed 40 mg PO DAILY GERD 03/22/23 Unknown History release simethicone 80 mg chewable tablet 80 mg PO TID Gas 03/22/23 Unknown History food supplemt, lactose-reduced 120 ml PO TIDCM #1 mL 04/06/23 Unknown Rx 0.08 gram-1.5 kcal/mL oral liquid gabapentin 100 mg capsule 100 mg PO TIDCM #1 cap 04/06/23 Unknown Rx loperamide 2 mg capsule 2 mg PO Q4H PRN PRN Diarrhea #1 cap 04/06/23 Unknown Rx metoprolol succinate 25 mg 25 mg PO DAILY #1 TAB 04/06/23 Unknown Rx tablet,extended release 24 hr sennosides 8.6 mg tablet (senna) 2 tab PO DAILY PRN PRN 04/06/23 Unknown Rx Constipation #1 TAB tramadol 50 mg tablet 50 mg PO Q6H PRN pain #20 tabs 05/28/23 Unknown Rx carbidopa 25 mg-levodopa 100 mg 1 tab PO TID 11/12/23 Unknown History tablet cyanocobalamin (vitamin B-12) 1,000 mcg PO DAILY 11/12/23 Unknown History 1,000 mcg capsule duloxetine 20 mg capsule,delayed 60 mg PO QHS 11/12/23 Unknown History release oxycodone 5 mg capsule 5 mg PO Q6H PRN pain 3 days #12 11/12/23 Unknown Rx caps polyethylene glycol 3350 17 17 g PO DAILY PRN PRN laxative 11/12/23 Unknown History gram/dose oral powder (Purelax) effect Allergy/AdvReac Type Severity Reaction Status Date / Time nitrofurantoin (From Allergy Hives Verified 12/02/24 01:41 Macrobid) pregabalin (From Lyrica) AdvReac Vomiting Verified 12/02/24 01:41 Family History Mother Dementia Father No cardiac disease Surgical History History of cholecystectomy History of cataract surgery H/O ventral hernia repair Hx laparoscopic cholecystectomy Social History household members: family and other details: Her granddaughter Hardy lives with her and also Hardy is daughter, [place] housing: house number of children: 3 pets and animals: No history of recent travel: No Smoking Status: Never smoker Electronic Cigarette Use: not used second hand exposure: No alcohol intake: never substance use type: does not use ROS ROS ED Constitutional Constitutional ED: Denies chills or fever(s) ENT ENT ED: Denies sore throat Cardiovascular Cardiovascular: Denies chest pain Respiratory/Chest Respiratory/Chest: Denies cough or dyspnea Gastrointestinal Gastrointestinal: Denies abdominal pain, diarrhea, nausea or vomiting Genitourinary Genitourinary ED: Denies dysuria or hematuria Musculoskeletal Musculoskeletal: Reports back pain Integumentary Denies rash Neurologic Neurologic: Denies headache(s) Hematologic/Lymphatic Hematologic/Lymphatic: Denies easy bleeding or easy bruising EXAM Physical Exam Const Vital Signs: 12/02/24 01:12 12/02/24 02:55 Temperature 97.8 F 98.3 F Temperature Source Axillary Pulse Rate 76 69 Respiratory Rate 16 18 Blood Pressure 163/89 H 136/74 H Blood Pressure Mean 113 94 Pulse Ox 97 95 Positive well nourished and well developed General Appearance ED: well developed HEENT HEENT Narrative: Normocephalic atraumatic Eyes PERRL and EOMs intact bilaterally General Eye ED: Negative for scleral icterus Neck supple Neck Narrative: No nuchal rigidity or meningeal signs Resp normal respiratory effort and clear to auscultation bilaterally Resp Narrative: Breath sounds are diminished throughout but overall clear to auscultation without signs of respiratory distress Cardio regular rate and regular rhythm Rate: other Other Details: Heart is regular rate and rhythm Radial and carotid pulses are equal and symmetric GI non-tender, non-distended and no masses GI Narrative: Abdomen is soft nontender and nondistended with hypoactive bowel sounds No voluntary guarding or rigidity or pulsatile mass Auscultation: hypoactive bowel sounds Palpation: soft Back/Spine no CVA tenderness Back/Spine Narrative: Patient has scoliotic lesions of the spine consistent with her past medical history. There is midline tenderness to palpation along the lower thoracic/upper lumbar region. No overlying soft tissue skin changes to suggest trauma or infection Pain worsens with motion Extremity Extremity Narrative: +2-3 pitting edema to the bilateral lower extremities that is equal and symmetric Neuro Neuro Narrative: Patient is at her baseline mental status consistent with history of Parkinson disease without new or focal neurologic deficit Psych Psych Narrative: Patient has a flat affect Skin Skin Narrative: No overlying soft tissue skin changes to suggest trauma or infection MDM MDM MDM Narrative Medical decision making narrative: Patient presented to the ER hypertensive but has a past medical history of this and otherwise vitals are stable. Patient has chronic back pain and despite her normal medications was having persistent pain which is why she was sent to the hospital and denied any type of recent trauma or sick symptoms. Chart review was performed and displays she has had multiple x-rays and CT scans. This did show degeneration and scoliosis but no abdominal pathology. As the patient reports this is similar nature to her previous back pain exacerbations and that she has not been sick or having any trauma I do not feel the need for testing at this time such as x-rays CT scans or laboratory studies. As patient is appearing to have an acute on chronic pain exacerbation she will be treated with IM Haldol Benadryl and Norflex. After receiving the medication patient did have resolution of her pain and was able to sleep. Her blood pressure improved with resolution of the pain as well. Therefore at this time I have low concern that patient has a acute compression fracture UTI pyelonephritis pneumonia intestinal infection osteomyelitis or cauda equina or epidural abscess based on her physical exam as well as previous workups in the hospital. As her pain has improved and her vital stabilized there is no need for further workup and she is otherwise safe for discharge History & Record Review Discussion w/independent historian: EMS personnel and Patient Additional record(s) reviewed:: Prior ED visit and Prior labs Discharge Plan Triage Chief Complaint: Back ED Provider: Gabriele Alamo Dx/Rx/DC Orders Clinical Impression: Scoliosis, Debility, Fibromyalgia, Parkinson's disease, Acute exacerbation of chronic low back pain Instructions: ED Back Pain (Acute or Chronic) Prescriptions: No Action acetaminophen 500 MG tablet 500 mg PO Q8H PRN PRN (Reason: Pain 1-10 Or Fever) ondansetron 4 mg tablet,disintegrating 4 mg PO Q8H PRN PRN (Reason: Nausea) Qty: 10 0RF pantoprazole 40 mg Tablet,Delayed Release (Dr/Ec) 40 mg PO DAILY simethicone 80 mg Tablet,Chewable 80 mg PO TID sennosides [senna] 8.6 mg Tablet 2 tab PO DAILY PRN PRN (Reason: Constipation) Qty: 1 0RF loperamide 2 mg Capsule 2 mg PO Q4H PRN PRN (Reason: Diarrhea) Qty: 1 0RF gabapentin 100 mg Capsule 100 mg PO TIDCM Qty: 1 0RF metoprolol succinate 25 mg Tablet Extended Release 24 Hr 25 mg PO DAILY Qty: 1 0RF food supplemt, lactose-reduced 0.08 gram-1.5 kcal/mL Liquid 120 ml PO TIDCM Qty: 1 0RF carbidopa-levodopa 25-100 mg tablet 1 tab PO TID Patient Comments: TAKE 1 TABLET BY MOUTH THREE TIMES DAILY AT 7AM, 12PM & 5PM cyanocobalamin (vitamin B-12) 1,000 mcg capsule 1,000 mcg PO DAILY polyethylene glycol 3350 [Purelax] 17 gram/dose powder 17 g PO DAILY PRN PRN (Reason: laxative effect) Patient Comments: MIX AND DRINK 17G BY MOUTH TWICE DAILY duloxetine 20 mg Capsule,Delayed Release(Dr/Ec) 60 mg PO QHS oxycodone 5 mg capsule 5 mg PO Q6H PRN (Reason: pain) 3 Days Qty: 12 0RF tramadol 50 mg tablet 50 mg PO Q6H PRN (Reason: pain) Qty: 20 0RF Primary Care Provider: Sudarshan Galarza Referrals: Sudarshan Galarza MD [Primary Care Provider] - Activity Restrictions/Additional Instructions: Please continue all of your home medications as directed by your doctor and follow-up with them for repeat evaluation. Return to the ER should you have any further concerns Print Language: Azerbaijani Disposition Disposition: Home, Self Care Discharge Date/Time: 12/02/24 03:41
[2024-12-02 02:55] VITALS: BP 136/74; PULSE 69; RESP 18; TEMP 36.8; O2SAT 95
== END 2024-12-02 03:41 | disposition home or self-care (01) ==
PROVIDERS: Emergency Provider Emergency Medicine; PCP Family Medicine; Visit Provider Emergency Medicine
DX: M41.9 Scoliosis, unspecified (principal); G20.A1 Parkinson's disease without dyskinesia, without mention of fluctuations; N18.31 Chronic kidney disease, stage 3a; R53.81 Other malaise; E78.5 Hyperlipidemia, unspecified; I12.9 Hypertensive chronic kidney disease with stage 1 through stage 4 chronic kidney disease, or unspecified chronic kidney disease; M79.7 Fibromyalgia; M54.50 Low back pain, unspecified; G89.29 Other chronic pain; Z90.49 Acquired absence of other specified parts of digestive tract; K21.9 Gastro-esophageal reflux disease without esophagitis; I87.2 Venous insufficiency (chronic) (peripheral)
CPT/HCPCS: 96372; 99284

== ENCOUNTER 2025-01-11 10:15 | Outpatient (RCR) | payer MEDICARE, BC, SELFPAY ==
[2024-12-21 10:30] VITALS: BP 175/91; PULSE 73; RESP 16; TEMP 36.6; BMI 26.2
--- NOTE | 2024-12-21 11:15 | PCM.WC.HP ---
History of Present Illness Date of Service: 12/21/24 Chief Complaint: Blister right lower extremity History of Wound: Patient is a 74-year-old female who presents to the wound care center with right lower extremity blister on the anterior tibial portion. She has PMHx age of HTN, HLD, Parkinson's without dyskinesia, CKD stage III, chronic venous insufficiency, fibromyalgia, scoliosis, and DJD. She is on chronic pain medication secondary to the fibromyalgia and scoliosis. Patient lives with granddaughter, and daughter does visit regularly. Stated that the blister developed over the weekend and started small but progressively has enlarged. She did see her family physician Dr. Galarza on 12/19/2024 and he was concern for possible infection associated with her blister and placed her on cephalexin 500 mg twice a day and mupirocin topical ointment. She does follow with urology in [place] and they have informed the daughter that she is not to take Lasix due to her incontinence. She does not wear any compression stockings and does have history of chronic pedal edema. Compression stockings had been discussed previously by her family physician however she has been noncompliant with use. She does spend much of her time with legs in a dependent position and does not elevate as instructed previously. States her legs are always in pain. She denies N/V/F/chills. Denies further complaints. FORMERLY [facility], [facility] Medical History (Updated 12/21/24 @ 11:[address] Nate Mitchell, NEEL) Parkinson disease Venous insufficiency (chronic) (peripheral) Chronic renal failure, stage 3a Chronic kidney disease (CKD) stage G3a/A2, moderately decreased glomerular filtration rate (GFR) between 45-59 mL/min/1.73 square meter and albuminuria creatinine ratio between 30-299 mg/g GERD (gastroesophageal reflux disease) Thoracic radiculopathy due to degenerative joint disease of spine Situational depression Scoliosis of thoracolumbar spine Renal calculus, right Lumbar radiculopathy Irritable bowel syndrome with both constipation and diarrhea Fibromyalgia HLD (hyperlipidemia) HTN (hypertension) Home Medications ?Medication ?Instructions ?Recorded ?Last Taken ?Type acetaminophen 500 mg tablet 500 mg PO Q8H PRN PRN Pain 1-10 Or 01/10/21 Unknown History Fever ondansetron 4 mg disintegrating 4 mg PO Q8H PRN PRN Nausea #10 tabs 11/15/22 Unknown Rx tablet pantoprazole 40 mg tablet,delayed 40 mg PO DAILY GERD 03/22/23 Unknown History release simethicone 80 mg chewable tablet 80 mg PO TID Gas 03/22/23 Unknown History food supplemt, lactose-reduced 120 ml PO TIDCM #1 mL 04/06/23 Unknown Rx 0.08 gram-1.5 kcal/mL oral liquid gabapentin 100 mg capsule 100 mg PO TIDCM #1 cap 04/06/23 Unknown Rx loperamide 2 mg capsule 2 mg PO Q4H PRN PRN Diarrhea #1 cap 04/06/23 Unknown Rx metoprolol succinate 25 mg 25 mg PO DAILY #1 TAB 04/06/23 Unknown Rx tablet,extended release 24 hr sennosides 8.6 mg tablet (senna) 2 tab PO DAILY PRN PRN 04/06/23 Unknown Rx Constipation #1 TAB tramadol 50 mg tablet 50 mg PO Q6H PRN pain #20 tabs 05/28/23 Unknown Rx carbidopa 25 mg-levodopa 100 mg 1 tab PO TID 11/12/23 Unknown History tablet cyanocobalamin (vitamin B-12) 1,000 mcg PO DAILY 11/12/23 Unknown History 1,000 mcg capsule duloxetine 20 mg capsule,delayed 60 mg PO QHS 11/12/23 Unknown History release oxycodone 5 mg capsule 5 mg PO Q6H PRN pain 3 days #12 11/12/23 Unknown Rx caps polyethylene glycol 3350 17 17 g PO DAILY PRN PRN laxative 11/12/23 Unknown History gram/dose oral powder (Purelax) effect cephalexin 500 mg capsule mg 3XD 12/21/24 Unknown History mupirocin 2 % topical ointment topical 3XD 12/21/24 Unknown History quetiapine 25 mg tablet mg 12/21/24 Unknown History Allergy/AdvReac Type Severity Reaction Status Date / Time nitrofurantoin (From Allergy Hives Verified 12/21/24 10:25 Macrobid) pregabalin (From Lyrica) AdvReac Vomiting Verified 12/21/24 10:25 Family History Mother Dementia Father No cardiac disease Surgical History History of cholecystectomy History of cataract surgery H/O ventral hernia repair Hx laparoscopic cholecystectomy Social History household members: family and other details: Her granddaughter Hardy lives with her and also Hardy is daughterRoopa housing: house number of children: 3 pets and animals: No history of recent travel: No Smoking Status: Never smoker Electronic Cigarette Use: not used second hand exposure: No alcohol intake: never substance use type: does not use ROS Constitutional Constitutional: Denies anorexia, change in weight, chills, fatigue or fever(s) Eyes Eyes: Denies blurry vision, change in vision or double vision ENT HEENT: Denies dysphagia Cardiovascular Cardiovascular: Denies chest pain, claudication, dyspnea or palpitations Respiratory/Chest Respiratory/Chest: Denies cough, shortness of breath at rest or wheezing Gastrointestinal Gastrointestinal: Denies abdominal pain, constipation, diarrhea, nausea or vomiting Genitourinary Genitourinary: Reports urinary incontinence; Denies dysuria or hematuria Musculoskeletal Musculoskeletal: Denies joint pain, joint stiffness or joint swelling Integumentary Integumentary: Denies jaundice, lesions, pruritus or rash Neurologic Neurologic: Denies dizziness, numbness or seizures Psychiatric Psychiatric: Reports anxiety Endocrine Endocrinology: Denies cold intolerance or heat intolerance Hematologic/Lymphatic Hematologic/Lymphatic: Denies easy bleeding or easy bruising Vital Signs Vital Signs Vital Signs: 12/21/24 10:30 Temperature 97.9 F Temperature Source Temporal Pulse Rate 73 Respiratory Rate 16 Blood Pressure 175/91 H Blood Pressure Mean 119 Blood Pressure Source Monitor Blood Pressure Position Semi-Fowlers Blood Pressure Location Left Arm Oxygen Delivery Method Room Air Weight Weight: 67.132 kg Body Mass Index (BMI) 26.2 Physical Exam Const alert, oriented x3 and no apparent distress General Appearance: cooperative HEENT normocephalic Eyes General Eye: normal appearance of both eyes Neck General: normal visual inspection Lymph Lymphatic: no lymphadenopathy noted and no lymphedema noted Resp normal respiratory effort Cardio regular rate and regular rhythm Extremity no calf tenderness Extremity Narrative: Vascular: DP and PT pulses nonpalpable secondary to edema. CFT is less than 5 seconds to digits. Normal temperature gradient. Hair growth is absent to digits. There is some reddish-purple discoloration of the distal digits secondary to the edema. Neurologic: Epicritic sensation intact without focal deficit. Musculoskeletal: Muscle strength 5 of 5 and age-appropriate. Does complain of pain to bilateral lower extremities no matter where palpated. She does have decreased range of motion of the ankle joint in dorsiflexion with the knee extended without pain or crepitus. Negative James sign, negative Perez sign. Dermatologic: There is significant +3 pitting edema to bilateral lower extremities. There are varicosities noted without hemosiderin deposition. There is a large bulla noted to the anterior aspect of the right lower extremity with serous fluid. No erythema to the entire lower extremity. No signs of infection. Skin no rashes or lesions noted General Skin Exam: venous stasis Neuro moves all extremities Debridement Note Debridement Note Wound debrided: Right lower extremity Laterality: Right Wound Grade/Stage: Frost stage I Type of Debridement: Excisional debridement Anesthesia Used: 5% Lidocaine Gel Depth: Down to and including healthy tissue and in the subcutaneous layer Percentage of wound debrided: 100 Instrument Used: #15 blade and Forceps Tissue Removed: Fibrous, devitalized subcutaneous, biofilm, slough Severity: Fat Layer Exposed Amount of bleeding with debridement: Mild Bleeding Controlled with: Compression and gauze Patient tolerated procedure: Patient tolerated procedure well Post-Debridement Measurements and Additional Note: Post-Debridement Measurements/Treatment - Nurse 1 - General Ulcer Assessment Start: 12/21/24 10:12 Freq: Status: Active Protocol: AISHA Activity Type Activity Date Activity User E-sign Co-sign Detail Recorded Client Recorded Date Recorded By Document 12/21/24 10:30 KW [id number] 12/21/24 10:47 KW 12/21/24 10:30 - Today's Visit Information Type of service Initial Visit Arrival Mode Wheelchair Accompanied by daughter Patient Identification Verified (Name & Yes ) Height and Weight Height 5 ft 3 in Weight 67.132 kg Weight in Pounds 148.0 lbs Weight Measurement Method Estimated by Patient Body Mass Index (BMI) 26.2 BMI Classification Overweight Vital Signs Temperature (97.8 F-99.1 F) 97.9 F Temperature Source Temporal Pulse Rate (60-100) 73 Pulse Location Monitor Respiratory Rate (12-18) 16 Respiratory rate source Observation Oxygen Delivery Method Room Air Blood Pressure (90/60-120/80) 175/91 H Blood Pressure Mean 119 Source Monitor Position Semi-Fowlers Blood Pressure Location Left Arm History Since Last Visit- (Skip if this is Patient's initial visit) Left Footwear Regular Shoe Right Footwear Regular Shoe Pain Scale: 0-10 Numeric Is Patient Pain Free? No rt leg -Description Burning -Alleviating Factors/Interventions Medication, Inactivity/ Resting Lower Extremity Assessment/ Foot Assessment/ Toe Nail Assessment Left -Posterior Tibial Doppler Multiphasic -Dorsalis Pedis Doppler Multiphasic -Extremity Color Red,Normal -Hair Growth on Legs No -Hair Growth on Toes No -Temperature of Extremity Cool -Capillary Refill Less than 3 Seconds -Thick Yes -Discolored Yes -Deformed Yes -Improper Length & Hygeine Yes Right -Posterior Tibial Doppler Multiphasic -Dorsalis Pedis Doppler Multiphasic -Extremity Color Red -Hair Growth on Legs No -Hair Growth on Toes No -Temperature of Extremity Cool -Capillary Refill Less than 3 Seconds -Thick Yes -Discolored Yes -Deformed Yes -Improper Length & Hygeine Yes Communication Assessment Preferred language Bhutanese Vacuum Form Operator Required No Able to Read Yes Able to Write Yes Communication Tools None Caregiver Communication Skills No Impairment Impairment Right Hearing Abillity Normal Left Hearing Abillity Normal Visual Assistive Devices None Teaching Assessment Preferences Verbal,Written, Demonstration Barriers to Learning None Readiness To Learn Excellent Willingness to Engage in Self Management High Activies Readiness to Engage in Self Management High Activities Anxiety Level Calm Cooperation Cooperative Perception Coherent Interest in Health Problem Asks Questions Education Importance Acknowledges Need Does Patient Smoke tobacco or other No substances Smoking Status Never smoker Is Patient Diabetic No Functional Assessment Recent Decline in Ability to Perform Bathing Culture/Evangelical/Field Supervisor Cultural/Evangelical Needs that may affect No Treatment Plan Would you allow our hospital costing manager to No meet you for the purpose of spiritual/ emotional support? Field Supervisor to contact place of caodaism No WC - Nurse 1 - General Ulcer Measurement Start: 12/21/24 10:12 Freq: Status: Active Protocol: Activity Type Activity Date Activity User E-sign Co-sign Detail Recorded Client Recorded Date Recorded By Document 12/21/24 10:30 KW [id number] 12/21/24 10:47 KW 12/21/24 10:30 Wound Center Nurse 1 #1 rt med le blister -Current Size (cm) - Length 9 -Current Size (cm) - Width 10.5 -Current Size (cm) - Depth 0.1 -Total Square Cm 94.5 -Date of Last Picture (Recall this 12/21/24 field) -Texture (Linda-wound Skin Appearance) Assessed -Moisture (Linda-wound Skin Appearance) Assessed -Color (Linda-wound Skin Appearance) Assessed, Erythema -Temperature (Linda-wound Skin No Abnormality Appearance) (Pt Warm) -Tenderness on Palpation (Linda-wound Yes Skin Appearance) -Foul Odor after Cleansing No -Wound Comment(s) fluid blister Right Calf (cm) 38 Right Ankle (cm) 24 Left Calf (cm) 38 Left Ankle (cm) 26 WC - Nurse 2 - General Ulcer CM Notes Start: 12/21/24 10:12 Freq: Status: Active Protocol: Activity Type Activity Date Activity User E-sign Co-sign Detail Recorded Client Recorded Date Recorded By Document 12/21/24 10:55 [facility] [id number] 12/21/24 11:00 [facility] 12/21/24 10:55 Wound Center Nurse 2 #1 rt med le blister -Time 10:55 -Correct Patient Yes -Correct Side, Site, Position Yes -Correct Procedure Yes -Procedure Performed Yes -Type of Procedure Debridement -Clinical Debridement Subcutaneous -Tissue Removed Subcutaneous -Post Debridement (cm) - Length 9 -Post Debridement (cm) - Width 11 -Post Debridement (cm) - Depth 0.1 -Total Square (Post) (cm) 99 -Area of Debridement (cm) - Length 9 -Area of Debridement (cm) - Width 11 -Total Square (Area) (cm) 99 -Tunneling No -Undermining/Tunneling No -Circular Undermining No -Wound/Ulcer Outcome Not Healed -Ulcer Cleansing Rinsed/ Irrigated with Saline -Foul Odor after Cleansing No -Bioengineered Tissue No -Bleeding Controlled with Pressure -Treatment Response Procedure Tolerated Well -Debridement - Subq, 1st 20sq cm Yes -Debridement, SubQ, ea addt'l 20sq cm 4 or part thereof Pain Scale: 0-10 Numeric Is Patient Pain Free? Yes Assessment/Plan Assessment/Plan (1) Non-pressure chronic ulcer of right calf with fat layer exposed: CODE(S): L97.212 - Non-pressure chronic ulcer of right calf with fat layer exposed (2) Bilateral edema of lower extremity: CODE(S): R60.0 - Localized edema (3) Venous insufficiency (chronic) (peripheral): CODE(S): I87.2 - Venous insufficiency (chronic) (peripheral) (4) Noncompliance: CODE(S): Z91.199 - Patient's noncompliance with other medical treatment and regimen due to unspecified reason (5) Debility: CODE(S): R53.81 - Other malaise (6) Anxiety: CODE(S): F41.9 - Anxiety disorder, unspecified PLAN: Plan Patient seen and evaluated Predebridement measurement: Serous bulla Bulla was deroofed and drained a lot of serous fluid. Ulcerative site below was debrided as noted in the clinical panel above. Postdebridement measurement was 9.0 cm x 11.0 cm x 0.1 cm. No signs of infection. Unna boot compression was applied to bilateral lower extremities for edema control. Daughter states she does not wear the compression stockings and has been previously instructed by her PCP Dr. Galarza and other multiple providers that she has seen. She often states that her mother does not even wear socks or shoes in the house and ambulates barefoot. Discussed with the daughter that her mother must continue compression stockings as this is essential to prevent further ulcerations and to aid in controlling her chronic lower extremity edema. Discussed with her in detail that her mother has previously been noncompliant with wearing these. Discussed when at rest she is also to elevate lower extremities to aid in edema control. Discussed that she can no longer continue to leave them down in a dependent position as this will contribute to additional swelling. Discussed signs and symptoms of infection. Discussed that there are no signs of infection currently and she is to finish out current antibiotic prescription, cephalexin 500 mg twice a day. Discussed if she notices any increasing redness on the leg that moves up the leg towards the knee, if purulent drainage begins at the wound site, if increasing foul odor is noted, or if she develops fever greater than 101 degree accompanied by nausea, vomiting, chills that these are signs of a progressing infection and she should report to the ED for further evaluation and antibiotics as she would have failed outpatient antibiotic. They are understanding of this today. The following work up and care recommendations were made: Dressing: Unna boot compression stocking bilateral lower extremity. She is to keep dressings clean, dry, and intact and utilize cast bag when showering to remain compliant. Wash: Do not get site wet Tissue growth optimization: None Offload: Continue to elevate the lower extremities and continue to remain compliant with current compression via Unna boot Vascular: Nonpalpable pedal pulses secondary to edema. Chronic venous insufficiency is noted with lower extremity edema Edema: +3 pitting edema secondary to chronic peripheral venous insufficiency/stasis Infection: No signs of infection. Will finish out current antibiotic as stated above. Pain: To continue her chronic pain medication for her fibromyalgia and scoliosis. Host factors: Chronic venous insufficiency/stasis, chronic edema bilateral lower extremity, noncompliance of compression stocking I answered all the patient's questions. To return to the wound healing center in 1 week or call sooner if the patient has any questions or concerns.
--- NOTE | 2024-12-22 09:58 | WC ---
PHOTO 12/21/24 RIGHT MED LE BLISTER (I)
[2024-12-25 11:07] VITALS: BP 181/99; PULSE 77; RESP 18; TEMP 36.3; BMI 26.2
[2024-12-28 10:26] VITALS: BP 194/113; PULSE 83; RESP 18; TEMP 36.6; BMI 26.2
--- NOTE | 2024-12-28 12:17 | PCM.WC.PN ---
History of Present Illness Date of Service: 12/28/24 Chief Complaint: Blister right lower extremity History of Wound: Patient is a 74-year-old female who presents to the wound care center with right lower extremity blister on the anterior tibial portion. She has PMHx age of HTN, HLD, Parkinson's without dyskinesia, CKD stage III, chronic venous insufficiency, fibromyalgia, scoliosis, and DJD. She is on chronic pain medication secondary to the fibromyalgia and scoliosis. Patient lives with granddaughter, and daughter does visit regularly. Stated that the blister developed over the weekend and started small but progressively has enlarged. She did see her family physician Dr. Galarza on 12/19/2024 and he was concern for possible infection associated with her blister and placed her on cephalexin 500 mg twice a day and mupirocin topical ointment. She does follow with urology in [place] and they have informed the daughter that she is not to take Lasix due to her incontinence. She does not wear any compression stockings and does have history of chronic pedal edema. Compression stockings had been discussed previously by her family physician however she has been noncompliant with use. She does spend much of her time with legs in a dependent position and does not elevate as instructed previously. States her legs are always in pain. She denies N/V/F/chills. Denies further complaints. Subjective Subjective This is a 74-year-old female who continues to follow with the wound care center for a pretibial ulceration secondary to chronic venous insufficiency/edema. She did return for nurse visit this past Wednesday for Unna boot dressing change. Daughter continues to site pain with any movement or touch to the lower extremities. Denies constitutional symptoms. Denies further complaints. Objective Data Objective Data Vital Signs: Vital Signs Temp Pulse Resp BP O2 Del Method 97.8 F 83 18 194/113 H Room Air 12/28/24 10:12/28/24 10:12/28/24 10:12/28/24 10:12/28/24 10:26 Oxygen Delivery Method Room Air Weight: 67.132 kg Body Mass Index (BMI) 26.2 Physical Exam Const alert, oriented x3 and no apparent distress General Appearance: cooperative HEENT normocephalic Eyes General Eye: normal appearance of both eyes Neck General: normal visual inspection Lymph Lymphatic: no lymphadenopathy noted and no lymphedema noted Resp normal respiratory effort Cardio regular rate and regular rhythm Extremity no calf tenderness Extremity Narrative: Vascular: DP and PT pulses nonpalpable secondary to edema. CFT is less than 5 seconds to digits. Normal temperature gradient. Hair growth is absent to digits. There is some reddish-purple discoloration of the distal digits secondary to the edema. Neurologic: Epicritic sensation intact without focal deficit. Musculoskeletal: Muscle strength 5 of 5 and age-appropriate. Does complain of pain to bilateral lower extremities no matter where palpated. She does have decreased range of motion of the ankle joint in dorsiflexion with the knee extended without pain or crepitus. Negative James sign, negative Perez sign. Dermatologic: There is significant +3 pitting edema to bilateral lower extremities. There are varicosities noted without hemosiderin deposition. There is a full-thickness ulceration noted to the pretibial aspect of the lower extremity secondary to large bulla from chronic venous insufficiency. No erythema to the entire lower extremity. No signs of infection. Skin no rashes or lesions noted General Skin Exam: venous stasis Neuro moves all extremities Debridement Note Debridement Note Wound debrided: Right lower extremity Laterality: Right Wound Grade/Stage: Frost stage I Type of Debridement: Excisional debridement Anesthesia Used: 5% Lidocaine Gel Depth: Down to and including healthy tissue and in the subcutaneous layer Percentage of wound debrided: 100 Instrument Used: 5mm curette Tissue Removed: Fibrous, devitalized subcutaneous, biofilm, slough Severity: Fat Layer Exposed Amount of bleeding with debridement: Mild Bleeding Controlled with: Compression and gauze Patient tolerated procedure: Patient tolerated procedure well Post-Debridement Measurements and Additional Note: Post-Debridement Measurements/Treatment - Nurse 1 - General Ulcer Assessment Start: 12/21/24 10:12 Freq: Status: Active Protocol: [email or web address] Activity Type Activity Date Activity User E-sign Co-sign Detail Recorded Client Recorded Date Recorded By Document 12/21/24 10:30 KW [id number] 12/21/24 10:47 KW Document 12/25/24 11:07 BM [id number] 12/25/24 11:10 BM Document 12/28/24 10:26 CP [id number] 12/28/24 10:31 CP 12/21/24 12/25/24 12/28/24 10:30 11:07 10:26 WC - Today's Visit Information Type of service Initial Visit Nurse-only Follow-up Visit Visit (Physician/INTERNET MARKETING STRATEGIST ) Arrival Mode Wheelchair Wheelchair Wheelchair Transfer Assistance Manual Transfer Assist (Other) 1 Accompanied by daughter daughter daughter Patient Identification Verified (Name & Yes Yes Yes ) Patient Requires Transmission-Based No No Precautions Safety Precautions Fall Prevention Height and Weight Height 5 ft 3 in Weight 67.132 kg Weight in Pounds 148.0 lbs Weight Measurement Method Estimated by Patient Body Mass Index (BMI) 26.2 26.2 26.2 BMI Classification Overweight Overweight Overweight Vital Signs Temperature (97.8 F-99.1 F) 97.9 F 97.3 F L 97.8 F Temperature Source Temporal Temporal Temporal Pulse Rate (60-100) 73 77 83 Pulse Location Monitor Monitor Monitor Respiratory Rate (12-18) 16 18 18 Respiratory rate source Observation Observation Observation Oxygen Delivery Method Room Air Room Air Room Air Blood Pressure (90/60-120/80) 175/91 H 181/99 H 194/113 H Blood Pressure Mean (mm Hg) 119 126 140 Source Monitor Monitor Monitor Position Semi-Fowlers Sitting Sitting Blood Pressure Location Left Arm Left Forearm Right Arm History Since Last Visit- (Skip if this is Patient's initial visit) Have you changed medications since your No last visit? Any new allergies or adverse reactions No Had a fall/change in ADL's that may No increase risk of falls Signs or symptoms of abuse and/or No neglect since last visit Have you been in the hospital since your No last visit? Has dressing in place as prescribed Yes Yes Has compression in place as prescribed Yes Yes Has offloadiing in place as prescribed N/A Yes Experienced any changes in pain level or No Yes management Left Footwear Regular Shoe Regular Shoe Regular Shoe Right Footwear Regular Shoe Regular Shoe Regular Shoe Pain Scale: 0-10 Numeric Is Patient Pain Free? No Yes Yes rt leg -Description Burning -Alleviating Factors/Interventions Medication, Inactivity/ Resting Lower Extremity Assessment/ Foot Assessment/ Toe Nail Assessment Left -Posterior Tibial Doppler Multiphasic -Dorsalis Pedis Doppler Multiphasic -Extremity Color Red,Normal -Hair Growth on Legs No -Hair Growth on Toes No -Temperature of Extremity Cool -Capillary Refill Less than 3 Seconds -Thick Yes -Discolored Yes -Deformed Yes -Improper Length & Hygeine Yes Right -Posterior Tibial Doppler Multiphasic -Dorsalis Pedis Doppler Multiphasic -Extremity Color Red -Hair Growth on Legs No -Hair Growth on Toes No -Temperature of Extremity Cool -Capillary Refill Less than 3 Seconds -Thick Yes -Discolored Yes -Deformed Yes -Improper Length & Hygeine Yes Communication Assessment Preferred language Upper Sorbian Strategy Execution Consultant Required No Able to Read Yes Able to Write Yes Communication Tools None Caregiver Communication Skills No Impairment Impairment Right Hearing Abillity Normal Left Hearing Abillity Normal Visual Assistive Devices None Teaching Assessment Preferences Verbal,Written, Demonstration Barriers to Learning None Readiness To Learn Excellent Willingness to Engage in Self Management High Activies Readiness to Engage in Self Management High Activities Anxiety Level Calm Cooperation Cooperative Perception Coherent Interest in Health Problem Asks Questions Education Importance Acknowledges Need Does Patient Smoke tobacco or other No substances Smoking Status Never smoker Is Patient Diabetic No Functional Assessment Recent Decline in Ability to Perform Bathing Culture/Mandaen/Industrial Seamstress Cultural/Mandaen Needs that may affect No Treatment Plan Would you allow our hospital art specialist to No meet you for the purpose of spiritual/ emotional support? Industrial Seamstress to contact place of mandaeism No WC - Nurse 1 - General Ulcer Measurement Start: 12/21/24 10:12 Freq: Status: Active Protocol: Activity Type Activity Date Activity User E-sign Co-sign Detail Recorded Client Recorded Date Recorded By Document 12/21/24 10:30 KW [id number] 12/21/24 10:47 KW Document 12/28/24 10:26 CP [id number] 12/28/24 10:31 CP 12/21/24 12/28/24 10:30 10:26 Wound Center Nurse 1 #1 rt med le blister -Current Size (cm) - Length 9 9 -Current Size (cm) - Width 10.5 9.5 -Current Size (cm) - Depth 0.1 0.1 -Total Square Cm 94.5 85.5 -Date of Last Picture (Recall this 12/21/24 field) -Exudate Amt Large -Exudate Type Yellow/Green -Wound Margin Flat & Intact -Granulation Amt Large (67-100%) -Granulation Quality Pale,[place],Red -Slough/Fibrin No -Texture (Linda-wound Skin Appearance) Assessed Assessed, Localized Edema -Moisture (Linda-wound Skin Appearance) Assessed Assessed, Maceration, Weeping -Color (Linda-wound Skin Appearance) Assessed, Assessed, Erythema Erythema -Temperature (Linda-wound Skin No Abnormality No Abnormality Appearance) (Pt Warm) (Pt Warm) -Tenderness on Palpation (Linda-wound Yes No Skin Appearance) -Ulcer Cleansing Soap and Water -Foul Odor after Cleansing No No -Anesthetic Used 5% Lidocaine Gel -Wound Comment(s) fluid blister Right Calf (cm) 38 Right Ankle (cm) 24 Left Calf (cm) 38 Left Ankle (cm) 26 - Nurse 2 - General Ulcer CM Notes Start: 12/21/24 10:12 Freq: Status: Active Protocol: Activity Type Activity Date Activity User E-sign Co-sign Detail Recorded Client Recorded Date Recorded By Document 12/21/24 10:55 [facility] [id number] 12/21/24 11:00 BM Document 12/28/24 10:57 [facility] [id number] 12/28/24 11:03 BMF 12/21/24 12/28/24 10:55 10:57 Wound Center Nurse 2 #1 rt med le blister -Time 10:55 10:58 -Correct Patient Yes Yes -Correct Side, Site, Position Yes Yes -Correct Procedure Yes Yes -Procedure Performed Yes Yes -Type of Procedure Debridement Debridement -Clinical Debridement Subcutaneous Subcutaneous -Tissue Removed Subcutaneous Subcutaneous -Post Debridement (cm) - Length 9 9.1 -Post Debridement (cm) - Width 11 9.5 -Post Debridement (cm) - Depth 0.1 0.1 -Total Square (Post) (cm) 99 86.45 -Area of Debridement (cm) - Length 9 9.1 -Area of Debridement (cm) - Width 11 9.5 -Total Square (Area) (cm) 99 86.45 -Tunneling No No -Undermining/Tunneling No No -Circular Undermining No No -Wound/Ulcer Outcome Not Healed Not Healed -Ulcer Cleansing Rinsed/ Rinsed/ Irrigated with Irrigated with Saline Saline -Foul Odor after Cleansing No No -Bioengineered Tissue No No -Bleeding Controlled with Pressure Pressure -Treatment Response Procedure Procedure Tolerated Well Tolerated Well -Debridement - Subq, 1st 20sq cm Yes Yes -Debridement, SubQ, ea addt'l 20sq cm 4 or part thereof Pain Scale: 0-10 Numeric Is Patient Pain Free? Yes Yes - Nurse 3 - General Ulcer D/C NN Start: 03/06/25 10:12 Freq: Status: Active Protocol: Activity Type Activity Date Activity User E-sign Co-sign Detail Recorded Client Recorded Date Recorded By Document 12/21/24 11:27 [facility] [id number] 12/21/24 11:29 [facility] Document 12/25/24 11:07 [facility] [id number] 12/25/24 11:10 [facility] Document 12/28/24 11:28 [id number] 12/28/24 11:29 KW 12/21/24 12/25/24 12/28/24 11:27 11:07 11:28 Wound Care Center Nurse 3 #1 rt med le blister -Ulcer Cleansing Rinsed/ Soap and Water Irrigated with Saline -Foul Odor after Cleansing No -Primary Dressing Applied Aquacel Extra, NonAdherent Contact Layer, Optilok 5x5 1/2 -Aquacel Extra 1 -Optilok 5x5 1/2 1 -Wound Comment(s) unna boots unna BLE -Multi-Layered Wrap Application Unna Boot - Unna Boot - Unna Boot - Bilateral Bilateral Bilateral -Other 1 box used for both legs -Unna- Bilat (Qty applied) 1 1 1 Treatment Response Procedure Tolerated Well Pain Scale: 0-10 Numeric Is Patient Pain Free? Yes Yes Yes WC - Visit Discharge Discharge Condition Stable Stable Stable Ambulatory Status Wheelchair Wheelchair Wheelchair Transportation Private Auto Private Auto Private Auto Accompanied by shelia Medication Reconcilliation completed & No provided to patient/care provider Clinical Summary of Care Provided Yes Notes: pt tearful and cries during entirety of visit. per shelia this is her daily behavior, chronic anxiety/pain Assessment/Plan Assessment/Plan (1) Non-pressure chronic ulcer of right calf with fat layer exposed: CODE(S): L97.212 - Non-pressure chronic ulcer of right calf with fat layer exposed (2) Bilateral edema of lower extremity: CODE(S): R60.0 - Localized edema (3) Venous insufficiency (chronic) (peripheral): CODE(S): I87.2 - Venous insufficiency (chronic) (peripheral) (4) Noncompliance: CODE(S): Z91.199 - Patient's noncompliance with other medical treatment and regimen due to unspecified reason (5) Debility: CODE(S): R53.81 - Other malaise (6) Anxiety: CODE(S): F41.9 - Anxiety disorder, unspecified PLAN: Plan Patient seen and evaluated Predebridement measurement: 9.0 cm x 9.4 cm x 0.1 cm Ulcerative was debrided as noted in the clinical panel above. Postdebridement measurement was 9.1 cm x 9.5 cm x 0.1 cm. No signs of infection. Adaptic and Aquacel placed over the wound site. Unna boot compression was applied to bilateral lower extremities for edema control. There has been some improvement with decreased size of ulceration and improvement of edema in the left lower extremity. Right lower extremity edema demonstrates slight improvement with edema versus her previous visit. Daughter states she does not wear the compression stockings and has been previously instructed by her PCP Dr. Galarza and other multiple providers that she has seen. She often states that her mother does not even wear socks or shoes in the house and ambulates barefoot. Discussed with the daughter that her mother must continue compression stockings as this is essential to prevent further ulcerations and to aid in controlling her chronic lower extremity edema. Discussed with her in detail that her mother has previously been noncompliant with wearing these. Discussed when at rest she is also to elevate lower extremities to aid in edema control. Discussed that she can no longer continue to leave them down in a dependent position as this will contribute to additional swelling. Discussed signs and symptoms of infection. Discussed that there are no signs of infection currently and she is to finish out current antibiotic prescription, cephalexin 500 mg twice a day. Discussed if she notices any increasing redness on the leg that moves up the leg towards the knee, if purulent drainage begins at the wound site, if increasing foul odor is noted, or if she develops fever greater than 101 degree accompanied by nausea, vomiting, chills that these are signs of a progressing infection and she should report to the ED for further evaluation and antibiotics as she would have failed outpatient antibiotic. They are understanding of this today. The following work up and care recommendations were made: Dressing: Unna boot compression stocking bilateral lower extremity. She is to keep dressings clean, dry, and intact and utilize cast bag when showering to remain compliant. Wash: Do not get site wet Tissue growth optimization: None Offload: Continue to elevate the lower extremities and continue to remain compliant with current compression via Unna boot Vascular: Nonpalpable pedal pulses secondary to edema. Chronic venous insufficiency is noted with lower extremity edema Edema: +3 pitting edema secondary to chronic peripheral venous insufficiency/stasis Infection: No signs of infection. Will finish out current antibiotic as stated above. Pain: To continue her chronic pain medication for her fibromyalgia and scoliosis. Host factors: Chronic venous insufficiency/stasis, chronic edema bilateral lower extremity, noncompliance of compression stocking I answered all the patient's questions. To return to the wound healing center in 1 week or call sooner if the patient has any questions or concerns.
[2025-01-11 10:17] VITALS: BP 163/87; PULSE 68; RESP 18; TEMP 36.6; BMI 26.2
--- NOTE | 2025-01-11 10:44 | PN.PCM_ITS ---
History of Present Illness Date of Service: 01/11/25 Chief Complaint: Blister right lower extremity History of Wound: Patient is a 74-year-old female who presents to the wound care center with right lower extremity blister on the anterior tibial portion. She has PMHx age of HTN, HLD, Parkinson's without dyskinesia, CKD stage III, chronic venous insufficiency, fibromyalgia, scoliosis, and DJD. She is on chronic pain medication secondary to the fibromyalgia and scoliosis. Patient lives with granddaughter, and daughter does visit regularly. Stated that the blister developed over the weekend and started small but progressively has enlarged. She did see her family physician Dr. Galarza on 12/19/2024 and he was concern for possible infection associated with her blister and placed her on cephalexin 500 mg twice a day and mupirocin topical ointment. She does follow with urology in [place] and they have informed the daughter that she is not to take Lasix due to her incontinence. She does not wear any compression stockings and does have history of chronic pedal edema. Compression stockings had been discussed previously by her family physician however she has been noncompliant with use. She does spend much of her time with legs in a dependent position and does not elevate as instructed previously. States her legs are always in pain. She denies N/V/F/chills. Denies further complaints. Subjective Subjective This is a 74-year-old female who continues to follow with the wound care center for a pretibial ulceration secondary to chronic venous insufficiency/edema. Home health has been assisting in her dressing changes as she was ill last week and could not make appointment. Daughter today states the wound looks better and might be healed. Denies constitutional symptoms. Denies further complaints. Objective Data Objective Data Vital Signs: Vital Signs Temp Pulse Resp BP O2 Del Method 97.9 F 68 18 163/87 H Room Air 01/11/25 10:17 01/11/25 10:17 01/11/25 10:17 01/11/25 10:17 12/28/24 10:26 Oxygen Delivery Method Room Air Weight: 67.132 kg Body Mass Index (BMI) 26.2 Physical Exam Const alert, oriented x3 and no apparent distress General Appearance: cooperative HEENT normocephalic Eyes General Eye: normal appearance of both eyes Neck General: normal visual inspection Lymph Lymphatic: no lymphadenopathy noted and no lymphedema noted Resp normal respiratory effort Cardio regular rate and regular rhythm Extremity no calf tenderness Extremity Narrative: Vascular: DP and PT pulses nonpalpable secondary to edema. CFT is less than 5 seconds to digits. Normal temperature gradient. Hair growth is absent to digits. There is some reddish-purple discoloration of the distal digits secondary to the edema. Neurologic: Epicritic sensation intact without focal deficit. Musculoskeletal: Muscle strength 5 of 5 and age-appropriate. Does complain of pain to bilateral lower extremities no matter where palpated. She does have decreased range of motion of the ankle joint in dorsiflexion with the knee extended without pain or crepitus. Negative James sign, negative Perez sign. Dermatologic: There is significant +3 pitting edema to bilateral lower extremities, which is improving with compression therapy. There are varicosities noted without hemosiderin deposition. Area of full-thickness ulceration to the pretibial aspect of the lower extremity secondary to large bulla from chronic venous insufficiency has now healed. No signs of infection. Skin no rashes or lesions noted General Skin Exam: venous stasis Neuro moves all extremities Debridement Note Debridement Note No debridement was completed: No debridement was completed today Post-Debridement Measurements and Additional Note: Post-Debridement Measurements/Treatment - Nurse 1 - General Ulcer Assessment Start: 12/21/24 10:12 Freq: Status: Active Protocol: [email or web address] Activity Type Activity Date Activity User E-sign Co-sign Detail Recorded Client Recorded Date Recorded By Document 12/21/24 10:30 KW [id number] 12/21/24 10:47 KW Document 12/25/24 11:07 [facility] [id number] 12/25/24 11:10 BMF Document 12/28/24 10:26 CP [id number] 12/28/24 10:31 CP Document 01/11/25 10:17 DL [id number] 01/11/25 10:30 DL 12/21/24 12/25/24 12/28/24 10:30 11:07 10:26 - Today's Visit Information Type of service Initial Visit Nurse-only Follow-up Visit Visit (Physician/ELEMENTARY SCHOOL READING TEACHER ) Arrival Mode Wheelchair Wheelchair Wheelchair Transfer Assistance Manual Transfer Assist (Other) 1 Accompanied by daughter daughter daughter Patient Identification Verified (Name & Yes Yes Yes ) Patient Requires Transmission-Based No No Precautions Safety Precautions Fall Prevention Height and Weight Height 5 ft 3 in Weight 67.132 kg Weight in Pounds 148.0 lbs Weight Measurement Method Estimated by Patient Body Mass Index (BMI) 26.2 26.2 26.2 BMI Classification Overweight Overweight Overweight Vital Signs Temperature (97.8 F-99.1 F) 97.9 F 97.3 F L 97.8 F Temperature Source Temporal Temporal Temporal Pulse Rate (60-100) 73 77 83 Pulse Location Monitor Monitor Monitor Respiratory Rate (12-18) 16 18 18 Respiratory rate source Observation Observation Observation Oxygen Delivery Method Room Air Room Air Room Air Blood Pressure (90/60-120/80) 175/91 H 181/99 H 194/113 H Blood Pressure Mean (mm Hg) 119 126 140 Source Monitor Monitor Monitor Position Semi-Fowlers Sitting Sitting Blood Pressure Location Left Arm Left Forearm Right Arm History Since Last Visit- (Skip if this is Patient's initial visit) Have you changed medications since your No last visit? Any new allergies or adverse reactions No Had a fall/change in ADL's that may No increase risk of falls Signs or symptoms of abuse and/or No neglect since last visit Have you been in the hospital since your No last visit? Has dressing in place as prescribed Yes Yes Has compression in place as prescribed Yes Yes Has offloadiing in place as prescribed N/A Yes Experienced any changes in pain level or No Yes management Left Footwear Regular Shoe Regular Shoe Regular Shoe Right Footwear Regular Shoe Regular Shoe Regular Shoe Pain Scale: 0-10 Numeric Is Patient Pain Free? No Yes Yes rt leg -Description Burning -Alleviating Factors/Interventions Medication, Inactivity/ Resting Lower Extremity Assessment/ Foot Assessment/ Toe Nail Assessment Left -Posterior Tibial Doppler Multiphasic -Dorsalis Pedis Doppler Multiphasic -Extremity Color Red,Normal -Hair Growth on Legs No -Hair Growth on Toes No -Temperature of Extremity Cool -Capillary Refill Less than 3 Seconds -Thick Yes -Discolored Yes -Deformed Yes -Improper Length & Hygeine Yes Right -Posterior Tibial Doppler Multiphasic -Dorsalis Pedis Doppler Multiphasic -Extremity Color Red -Hair Growth on Legs No -Hair Growth on Toes No -Temperature of Extremity Cool -Capillary Refill Less than 3 Seconds -Thick Yes -Discolored Yes -Deformed Yes -Improper Length & Hygeine Yes Communication Assessment Preferred language Ni[place]an Sap Bi Architect Required No Able to Read Yes Able to Write Yes Communication Tools None Caregiver Communication Skills No Impairment Impairment Right Hearing Abillity Normal Left Hearing Abillity Normal Visual Assistive Devices None Teaching Assessment Preferences Verbal,Written, Demonstration Barriers to Learning None Readiness To Learn Excellent Willingness to Engage in Self Management High Activies Readiness to Engage in Self Management High Activities Anxiety Level Calm Cooperation Cooperative Perception Coherent Interest in Health Problem Asks Questions Education Importance Acknowledges Need Does Patient Smoke tobacco or other No substances Smoking Status Never smoker Is Patient Diabetic No Functional Assessment Recent Decline in Ability to Perform Bathing Culture/Gnosticism/Labor Relations Consultant Cultural/Gnosticism Needs that may affect No Treatment Plan Would you allow our hospital char filter tank tender head to No meet you for the purpose of spiritual/ emotional support? Labor Relations Consultant to contact place of orthodoxy No 01/11/25 10:17 WC - Today's Visit Information Type of service Follow-up Visit (Physician/ELEMENTARY SCHOOL READING TEACHER ) Arrival Mode Wheelchair Transfer Assistance Manual Transfer Assist (Other) x2 Accompanied by Patient Identification Verified (Name & Yes ) Patient Requires Transmission-Based No Precautions Safety Precautions Height and Weight Height Weight Weight in Pounds Weight Measurement Method Body Mass Index (BMI) 26.2 BMI Classification Overweight Vital Signs Temperature (97.8 F-99.1 F) 97.9 F Temperature Source Temporal Pulse Rate (60-100) 68 Pulse Location Monitor Respiratory Rate (12-18) 18 Respiratory rate source Observation Oxygen Delivery Method Blood Pressure (90/60-120/80) 163/87 H Blood Pressure Mean (mm Hg) 112 Source Monitor Position Blood Pressure Location History Since Last Visit- (Skip if this is Patient's initial visit) Have you changed medications since your No last visit? Any new allergies or adverse reactions No Had a fall/change in ADL's that may No increase risk of falls Signs or symptoms of abuse and/or No neglect since last visit Have you been in the hospital since your No last visit? Has dressing in place as prescribed Yes Has compression in place as prescribed Yes Has offloadiing in place as prescribed Yes Experienced any changes in pain level or No management Left Footwear Right Footwear Pain Scale: 0-10 Numeric Is Patient Pain Free? Yes rt leg -Description -Alleviating Factors/Interventions Lower Extremity Assessment/ Foot Assessment/ Toe Nail Assessment Left -Posterior Tibial Doppler -Dorsalis Pedis Doppler -Extremity Color -Hair Growth on Legs -Hair Growth on Toes -Temperature of Extremity -Capillary Refill -Thick -Discolored -Deformed -Improper Length & Hygeine Right -Posterior Tibial Doppler -Dorsalis Pedis Doppler -Extremity Color -Hair Growth on Legs -Hair Growth on Toes -Temperature of Extremity -Capillary Refill -Thick -Discolored -Deformed -Improper Length & Hygeine Communication Assessment Preferred school speech language pathologist Required Able to Read Able to Write Communication Tools Caregiver Communication Skills Impairment Right Hearing Abillity Left Hearing Abillity Visual Assistive Devices Teaching Assessment Preferences Barriers to Learning Readiness To Learn Willingness to Engage in Self Management Activies Readiness to Engage in Self Management Activities Anxiety Level Cooperation Perception Interest in Health Problem Education Importance Does Patient Smoke tobacco or other substances Smoking Status Is Patient Diabetic Functional Assessment Recent Decline in Ability to Perform Culture/Gnosticism/Labor Relations Consultant Cultural/Gnosticism Needs that may affect Treatment Plan Would you allow our hospital char filter tank tender head to meet you for the purpose of spiritual/ emotional support? Labor Relations Consultant to contact place of orthodoxy WC - Nurse 1 - General Ulcer Measurement Start: 12/21/24 10:12 Freq: Status: Active Protocol: Activity Type Activity Date Activity User E-sign Co-sign Detail Recorded Client Recorded Date Recorded By Document 12/21/24 10:30 KW [id number] 12/21/24 10:47 KW Document 12/28/24 10:26 CP [id number] 12/28/24 10:31 CP Document 01/11/25 10:17 DL [id number] 01/11/25 10:30 DL 12/21/24 12/28/24 01/11/25 10:30 10:26 10:17 Wound Center Nurse 1 #1 rt med le blister -Current Size (cm) - Length 9 9 0 -Current Size (cm) - Width 10.5 9.5 0 -Current Size (cm) - Depth 0.1 0.1 0 -Total Square Cm 94.5 85.5 0 -Date of Last Picture (Recall this 12/21/24 field) -Photo Taken Yes -Exudate Amt Large None Present -Exudate Type Yellow/Green -Wound Margin Flat & Intact Flat & Intact -Granulation Amt Large (67-100%) Large (67-100%) -Granulation Quality Pale,Sisters,Red Sisters -Slough/Fibrin No -Necrosis Amt None Present (0 %) -Structure Exposed N/A -Texture (Linda-wound Skin Appearance) Assessed Assessed, Scarring Localized Edema -Moisture (Linda-wound Skin Appearance) Assessed Assessed, No Abnormality Maceration, Weeping -Color (Linda-wound Skin Appearance) Assessed, Assessed, No Abnormality Erythema Erythema -Temperature (Linda-wound Skin No Abnormality No Abnormality No Abnormality Appearance) (Pt Warm) (Pt Warm) (Pt Warm) -Tenderness on Palpation (Linda-wound Yes No Skin Appearance) -Ulcer Cleansing Soap and Water Soap and Water -Foul Odor after Cleansing No No No -Anesthetic Used 5% Lidocaine Gel -Wound Comment(s) fluid blister Right Calf (cm) 38 39 Right Ankle (cm) 24 24 Left Calf (cm) 38 37.5 Left Ankle (cm) 26 24.5 WC - Nurse 2 - General Ulcer CM Notes Start: 12/21/24 10:12 Freq: Status: Active Protocol: Activity Type Activity Date Activity User E-sign Co-sign Detail Recorded Client Recorded Date Recorded By Document 12/21/24 10:55 BMF [id number] 12/21/24 11:00 BMF Document 12/28/24 10:57 BMF [id number] 12/28/24 11:03 BMF Edit Result 12/28/24 10:57 BMF (1) [id number] 01/03/25 07:34 BMF Document 01/11/25 10:34 BMF [id number] 01/11/25 10:37 BMF (1) #1 rt med le blister - Debridement, SubQ, ea addt'l 20sq cm => 4 or part thereof 12/21/24 12/28/24 01/11/25 10:55 10:57 10:34 Wound Center Nurse 2 #1 rt med le blister -Time 10:55 10:58 10:35 -Correct Patient Yes Yes -Correct Side, Site, Position Yes Yes -Correct Procedure Yes Yes -Procedure Performed Yes Yes No -Type of Procedure Debridement Debridement -Clinical Debridement Subcutaneous Subcutaneous -Tissue Removed Subcutaneous Subcutaneous -Post Debridement (cm) - Length 9 9.1 0 -Post Debridement (cm) - Width 11 9.5 0 -Post Debridement (cm) - Depth 0.1 0.1 0 -Total Square (Post) (cm) 99 86.45 0 -Area of Debridement (cm) - Length 9 9.1 0 -Area of Debridement (cm) - Width 11 9.5 0 -Total Square (Area) (cm) 99 86.45 0 -Tunneling No No -Undermining/Tunneling No No -Circular Undermining No No -Wound/Ulcer Outcome Not Healed Not Healed Healed- Epithelialized -Ulcer Cleansing Rinsed/ Rinsed/ Irrigated with Irrigated with Saline Saline -Foul Odor after Cleansing No No -Bioengineered Tissue No No -Bleeding Controlled with Pressure Pressure -Treatment Response Procedure Procedure Tolerated Well Tolerated Well -Debridement - Subq, 1st 20sq cm Yes Yes -Debridement, SubQ, ea addt'l 20sq cm 4 4 or part thereof Pain Scale: 0-10 Numeric Is Patient Pain Free? Yes Yes Yes - Nurse 3 - General Ulcer D/C NN Start: 12/21/24 10:12 Freq: Status: Active Protocol: Activity Type Activity Date Activity User E-sign Co-sign Detail Recorded Client Recorded Date Recorded By Document 12/21/24 11:27 [facility] [id number] 12/21/24 11:29 [facility] Document 12/25/24 11:07 [facility] [id number] 12/25/24 11:10 [facility] Document 12/28/24 11:28 [id number] 12/28/24 11:29 KW 12/21/24 12/25/24 12/28/24 11:27 11:07 11:28 Wound Care Center Nurse 3 #1 rt med le blister -Ulcer Cleansing Rinsed/ Soap and Water Irrigated with Saline -Foul Odor after Cleansing No -Primary Dressing Applied Aquacel Extra, NonAdherent Contact Layer, Optilok 5x5 1/2 -Aquacel Extra 1 -Optilok 5x5 1/2 1 -Wound Comment(s) unna boots unna BLE -Multi-Layered Wrap Application Unna Boot - Unna Boot - Unna Boot - Bilateral Bilateral Bilateral -Other 1 box used for both legs -Unna- Bilat (Qty applied) 1 1 1 Treatment Response Procedure Tolerated Well Pain Scale: 0-10 Numeric Is Patient Pain Free? Yes Yes Yes - Visit Discharge Discharge Condition Stable Stable Stable Ambulatory Status Wheelchair Wheelchair Wheelchair Transportation Private Auto Private Auto Private Auto Accompanied by shelia Medication Reconcilliation completed & No provided to patient/care provider Clinical Summary of Care Provided Yes Notes: pt tearful and cries during entirety of visit. per shelia this is her daily behavior, chronic anxiety/pain Assessment/Plan Assessment/Plan (1) Non-pressure chronic ulcer of right calf with fat layer exposed: CODE(S): L97.212 - Non-pressure chronic ulcer of right calf with fat layer exposed (2) Bilateral edema of lower extremity: CODE(S): R60.0 - Localized edema (3) Venous insufficiency (chronic) (peripheral): CODE(S): I87.2 - Venous insufficiency (chronic) (peripheral) (4) Noncompliance: CODE(S): Z91.199 - Patient's noncompliance with other medical treatment and regimen due to unspecified reason (5) Debility: CODE(S): R53.81 - Other malaise (6) Anxiety: CODE(S): F41.9 - Anxiety disorder, unspecified PLAN: Plan Patient seen and evaluated Predebridement measurement: Healed Ulcerative was not debrided as noted in the clinical panel above. Postdebridement status is healed. No signs of infection. Tubigrip compression was applied to bilateral lower extremities for edema control. Prescription for compression stocking 20 to 30 mmHg was written today and she will go to [facility] for measurement and obtaining of the compression stockings. It is recommended she continue to utilize the compression stockings daily to prevent recidivism. There has been improvement with healed ulceration and continued improvement of edema in the right lower extremity versus previous visit. Left lower extremity edema improvement with edema versus her previous visit. Daughter states she does not wear the compression stockings that have been previously instructed to wear by her PCP Dr. Galarza and other multiple providers that she has seen. She often states that her mother does not even wear socks or shoes in the house and ambulates barefoot. Discussed with the daughter that her mother must continue compression stockings as this is essential to prevent further ulcerations and to aid in controlling her chronic lower extremity edema. Discussed with her in detail that her mother has previously been noncompliant with wearing these. Discussed when at rest she is also to elevate lower extremities to aid in edema control. Discussed that she can no longer continue to leave them down in a dependent position as this will contribute to additional swelling. The following work up and care recommendations were made: Dressing: Tubigrip compression bilateral lower extremity. Will obtain compression stocking for every day use of 20 to 30 mmHg to prevent recidivism. Wash: Soap and water Tissue growth optimization: None Offload: Continue to elevate the lower extremities and continue to remain compliant with current compression via Tubigrip until compression stockings can be obtained. Vascular: Nonpalpable pedal pulses secondary to edema. Chronic venous insufficiency is noted with lower extremity edema Edema: +3 pitting edema secondary to chronic peripheral venous insufficiency/stasis, this is improving as stated above with current compression Infection: No signs of infection. Has previously finished her oral antibiotic prescribed by PCP. Pain: To continue her chronic pain medication for her fibromyalgia and scoliosis. Host factors: Chronic venous insufficiency/stasis, chronic edema bilateral lower extremity, noncompliance of compression stocking With healed status achieved she is being discharged from the wound care center today. I answered all the patient's questions. To return to the wound healing center as needed or call sooner if the patient has any questions or concerns.
--- NOTE | 2025-01-12 09:39 | WC ---
PHOTO 01/11/25 RIGHT LISA BROWNE
== END 2025-01-15 16:48 | disposition home or self-care (01) ==
LOC: WC 10:15
PROVIDERS: PCP Family Medicine; Referring Provider Family Medicine; Visit Provider Student in an Organized Health Care Education/Training Program
DX: L97.212 Non-pressure chronic ulcer of right calf with fat layer exposed (principal); G20.A1 Parkinson's disease without dyskinesia, without mention of fluctuations; N18.31 Chronic kidney disease, stage 3a; R53.81 Other malaise; I87.2 Venous insufficiency (chronic) (peripheral); R60.0 Localized edema; G89.29 Other chronic pain; M41.9 Scoliosis, unspecified; I12.9 Hypertensive chronic kidney disease with stage 1 through stage 4 chronic kidney disease, or unspecified chronic kidney disease; K21.9 Gastro-esophageal reflux disease without esophagitis; F41.9 Anxiety disorder, unspecified; Z91.199 Patient's noncompliance with other medical treatment and regimen due to unspecified reason; E78.5 Hyperlipidemia, unspecified; M79.7 Fibromyalgia
CPT/HCPCS: 11042; 11045; 29580; 99213; G0463

== ENCOUNTER 2025-04-16 18:41 | Emergency (ER) | payer MEDICARE, BC, SELFPAY ==
[2025-04-16 18:42] VITALS: BP 152/101; PULSE 77; RESP 16; TEMP 36.6; O2SAT 96
--- NOTE | 2025-04-16 21:14 | ED.RN ---
FAMILY APPROACHED NURSES STATION AND INFORMED THIS NURSE THAT SHE WAS TAKING THE PT. HOME AT THIS TIME. REGISTRATION NOTIFIED OF PT. LWBS
== END 2025-04-16 21:13 | disposition left against medical advice (07) ==
LOC: ED 21:26
PROVIDERS: PCP Family Medicine
DX: T14.90XA Injury, unspecified, initial encounter (principal); W19.XXXA Unspecified fall, initial encounter